=== PATIENT | female | born 1950 | race Caucasian/White ===

== ENCOUNTER → 2016-10-30 | Outpatient (REF) | payer MEDICARE ==
[~2016-10-30] MED LIST: ACET500T37 PO; CALC12502 PO; CALC1CAP31 PO; CIPR500T89 PO; DOCU10CA PO; DRIS50002 PO; FLAG500T PO; GABA300C3 PO; GLIP5TAB15 PO; GLIP5TAB2; IBUP800T23 PO; LEVO75TA4 PO; LOMO2.5T PO; LOVE0.6I2 SC; MAGN500C PO; METF500T PO; MILKSUS PO; MYLI40DR PO; NEUR100C PO; NEUR300C PO; No Historical Meds; PRAM0.5T4 PO; SYNT50TA PO; TRAM50TA2 PO; ZOFR4TAB3 PO
== END ==
LOC: M LAB REF 12:41
PROVIDERS: ATTEND Internal Medicine Medical Oncology
DX: C18.9 Malignant neoplasm of colon, unspecified (principal)

== ENCOUNTER → 2016-11-07 | Outpatient (CLI) | payer MEDICARE ==
[~2016-11-07] MED LIST changes: +GASTROGRAFIN SOLUTION 30ML (Q9963) As Ordered ONE; +ISOVUE-370 76% 100ML VIAL (Q9967) As Ordered ONE
--- NOTE | 2016-11-07 09:18 | REPMRS ---
Patient History The patient states she had a clinical breast exam in 2016. Patient is postmenopausal and has history of colorectal cancer at age 54. Family history of breast cancer in 3 paternal aunts at age 50 or over and breast cancer in paternal grandmother at age 50 or over. Digital Mammo Screening Bilat: November 07, 2016 - Exam #: [id number] Bilateral CC and MLO view(s) were taken. Technologist: Kayley Mijares, Technologist Prior study comparison: November 11, 2015, digital woman screen mammo, performed at [facility] [employer] [facility]. August 07, 2012, digital woman screen mammo, performed at [facility] [employer] [facility]. February 13, 2007, bilateral screening mammogram, performed at [facility] [employer] [facility]. FINDINGS: There are scattered fibroglandular densities. There has been no change in the appearance of the mammogram from the prior studies. There is a mild amount of scattered fibroglandular density which is fairly symmetric. There is no interval development of dominant mass, architectural distortion, or clustered microcalcification suggestive of malignancy. ASSESSMENT: BI-RADS/ACR category 1 mammogram. Negative. Recommendation Routine screening mammogram in 1 year (for women over age 40). This mammogram was interpreted with the aid of an FDA-approved computer-aided dectection system. Electronically Signed By: Cm Omalley MD 11/07/16 0918
--- NOTE | 2016-11-07 11:51 | REP ---
CT of the chest with IV contrast: Comparisons 07/23/2016. The comparison study was performed is a pulmonary embolus protocol. Current is performed as a routine chest protocol and is not a pulmonary embolus protocol. On the comparison study there were bilateral lower lobe pulmonary emboli. These are not identified on the current study, however, as stated, the current study is not a pulmonary artery CT angiography. There are no infiltrates or effusion. There are no lung masses or nodules. There is no mediastinal or hilar adenopathy. There is no axillary adenopathy. The thoracic aorta is unremarkable. Cardiac size is normal. There is no pericardial effusion. There are no lytic, blastic or destructive skeletal changes. Impression: Essentially negative CT study of the chest. There are no nodules, masses, infiltrates or effusions. No adenopathy. The pulmonary emboli identified on the comparison study are not identified on the current examination. Signed by Kt Razo MD 11/07/2016 11:42 A
--- NOTE | 2016-11-07 12:24 | REP ---
CT STUDY OF THE ABDOMEN AND PELVIS WITHOUT AND WITH IV CONTRAST: With oral contrast. HISTORY: Rectal bleeding. Colon cancer. Comparison CT study is from July 23, 2016. FINDINGS: Sheep Or Calf Grader radiograph demonstrates an unremarkable bowel gas pattern. The left lobe of the liver has been surgically resected as seen previously. There is a stable low density lesion in the remaining left lobe 1 cm in diameter compatible with a cyst. There is evidence of mild fatty infiltration of the liver. Liver is otherwise homogeneous. The spleen is homogeneous and unremarkable. A small sliding-type hiatal hernia is seen. No adrenal lesion is seen. There is fatty involution of the head of the pancreas, and to a lesser extent, the body and tail. No pancreatic mass lesion is seen. Small and large intestinal bowel loops are normal in the abdomen and pelvis. Normal appendix is seen. A rectosigmoid anastomotic suture line is seen. No colonic mass lesion is observed. There are a few left colonic diverticula. Kidneys enhance symmetrically and are morphologically intact. No renal mass is seen. Normal caliber aorta is seen. No uterine or ovarian mass lesion is seen. No pelvic adenopathy is noted. Postoperative changes are seen in the anterior abdominal wall. IMPRESSION: Stable changes in the abdomen and pelvis. Status post partial left lobe hepatectomy. Small hiatal hernia. Status post left colonic resection and reanastomosis. No new mass or adenopathy seen. Signed by Jak Omalley MD 11/07/2016 06:35 P
== END | disposition home or self-care (01) ==
LOC: M RAD 08:05
PROVIDERS: ATTEND Internal Medicine Medical Oncology
DX: Z12.31 Encounter for screening mammogram for malignant neoplasm of breast (principal); C18.9 Malignant neoplasm of colon, unspecified; K44.9 Diaphragmatic hernia without obstruction or gangrene; Z98.0 Intestinal bypass and anastomosis status; Z78.0 Asymptomatic menopausal state; Z80.3 Family history of malignant neoplasm of breast
CPT/HCPCS: 71260; 74178; G0202; Q9963; Q9967

== ENCOUNTER → 2016-11-20 | Outpatient (CLI) | payer MEDICARE ==
[~2016-11-20] MED LIST changes: -GASTROGRAFIN SOLUTION 30ML (Q9963) As Ordered ONE; -ISOVUE-370 76% 100ML VIAL (Q9967) As Ordered ONE
[2016-11-20 13:09] LABS: ALBUMIN 3.6 GM/DL (3.2-5.2); ALBUMIN/GLOBULIN RATIO 1.16 (1.00-1.93); ALKALINE PHOSPHATASE 66 U/L (45-117); ALT/SGPT 20 U/L (12-78); ANION GAP 11 MEQ/L (8-16); AST/SGOT 10 U/L (15-37); BILIRUBIN,TOTAL 0.7 MG/DL (0.2-1.0); BLOOD UREA NITROGEN 21 MG/DL (7-18); CALCIUM LEVEL 8.4 MG/DL (8.8-10.2); CARBON DIOXIDE LEVEL 23 MEQ/L (21-32); CHLORIDE LEVEL 108 MEQ/L (98-107); CREATININE FOR GFR 0.88 MG/DL (0.55-1.02); FREE T4 1.12 NG/DL (0.76-1.46); GLOMERULAR FILTRATION RATE > 60.0 (>45); GLUCOSE, FASTING 191 MG/DL (80-110); MAGNESIUM LEVEL 1.8 MG/DL (1.8-2.4); POTASSIUM SERUM 4.1 MEQ/L (3.5-5.1); SODIUM LEVEL 142 MEQ/L (136-145); TOTAL PROTEIN 6.7 GM/DL (6.4-8.2)
== END ==
LOC: M WUC 08:32
PROVIDERS: ATTEND Nurse Practitioner Family
DX: E11.9 Type 2 diabetes mellitus without complications (principal); E03.9 Hypothyroidism, unspecified; E83.42 Hypomagnesemia

== ENCOUNTER → 2016-12-12 | Outpatient (REF) | payer MEDICARE | LOC: M LAB REF 13:00 | PROVIDERS: ATTEND Physician Assistant Medical | DX: E11.8 Type 2 diabetes mellitus with unspecified complications (principal) | CPT/HCPCS: 82043; G0463 ==

== ENCOUNTER → 2017-02-07 | Outpatient (REF) | payer MEDICARE ==
[~2017-02-07] MED LIST changes: +GABA-282 PO; -GABA300C3 PO
== END ==
LOC: M LAB REF 13:29
PROVIDERS: ATTEND Internal Medicine Medical Oncology
DX: C18.9 Malignant neoplasm of colon, unspecified (principal)

== ENCOUNTER → 2017-02-14 | Outpatient (CLI) | payer MEDICARE ==
[~2017-02-14] MED LIST changes: +GASTROGRAFIN SOLUTION 30ML (Q9963) As Ordered ONE; +ISOVUE-370 76% 100ML VIAL (Q9967) As Ordered ONE
--- NOTE | 2017-02-14 10:20 | REP ---
CT ABDOMEN AND PELVIS WITH AND WITHOUT CONTRAST: TECHNIQUE: Axial noncontrast images through the abdomen followed by contrast-enhanced images through the abdomen and pelvis using 100 mL Isovue 370 intravenous contrast material, with coronal and sagittal reformations. COMPARISON: 11/07/2016 as well as other prior exams. The visualized lung bases demonstrate mild interstitial fibrotic change. The liver demonstrates increased diffuse fatty infiltration compared to the prior study. Left lobe cyst is unchanged. The patient is status post partial resection of the left lobe of the liver with metallic clips along the left liver margin. The spleen, adrenals, pancreas and kidneys are essentially unremarkable. There is a cyst in the upper pole of the right kidney. There is a tiny ayala-like calcification in the left lower pole collecting system without hydronephrosis. There are mild scattered atherosclerotic calcifications of the abdominal aorta without aneurysm. I see no adenopathy. There is no free air or free fluid. No bowel wall thickening is seen. The appendix is normal. No pelvic mass is seen. Surgical sutures are seen in the region of the rectosigmoid colon. There is a small hiatal hernia. A few sigmoid diverticula are present. Small sclerotic lesion in the left iliac bone is stable compared to several prior studies. IMPRESSION: Increased fatty infiltration of the liver compared to the most recent exam of 11/07/2016. Otherwise no change. Signed by Kt Ramirez MD 02/15/2017 05:10 P
== END ==
LOC: M RAD 07:15
PROVIDERS: ATTEND Internal Medicine Medical Oncology
DX: K76.0 Fatty (change of) liver, not elsewhere classified (principal); Z85.038 Personal history of other malignant neoplasm of large intestine
CPT/HCPCS: 74178; Q9963; Q9967

== ENCOUNTER → 2017-03-15 | Outpatient (CLI) | payer MEDICARE ==
[~2017-03-15] MED LIST changes: -GASTROGRAFIN SOLUTION 30ML (Q9963) As Ordered ONE; -ISOVUE-370 76% 100ML VIAL (Q9967) As Ordered ONE
[2017-03-15 09:14] LABS: BASO % 0.6 % (0.0-1.0); EOS # 0.1 K/mm3 (0.0-0.50); EOS % 3.2 % (0.0-3.0); LARGE UNSTAINED CELL # 0.1 K/mm3 (0.0-0.4); LARGE UNSTAINED CELL % 3.1 % (0.0-4.0); LYMPH # 0.5 K/mm3 (1.5-4.5); LYMPH % 15.5 % (24.0-44.0); MEAN CORPUSCULAR HEMOGLOBIN 30.3 pg (27.0-33.0); MEAN CORPUSCULAR VOLUME 89.3 fl (80.0-96.0); MONO # 0.2 K/mm3 (0.0-0.8); MONO % 6.2 % (0.0-5.0); NEUTROPHILS # 2.2 K/mm3 (1.8-7.7); NEUTROPHILS % 71.4 % (36.0-66.0); PLATELET COUNT, AUTOMATED 154 k/mm3 (150-450); RED CELL DISTRIBUTION WIDTH 14.6 % (11.5-14.5); WHITE BLOOD COUNT 3.1 K/mm3 (4.0-10.0)
[2017-03-15 09:39] LABS: ALBUMIN 3.5 GM/DL (3.2-5.2); ALBUMIN/GLOBULIN RATIO 1.21 (1.00-1.93); ALKALINE PHOSPHATASE 73 U/L (45-117); ALT/SGPT 26 U/L (12-78); ANION GAP 8 MEQ/L (8-16); AST/SGOT 13 U/L (15-37); BILIRUBIN,TOTAL 0.9 MG/DL (0.2-1.0); BLOOD UREA NITROGEN 19 MG/DL (7-18); CALCIUM LEVEL 8.3 MG/DL (8.8-10.2); CARBON DIOXIDE LEVEL 28 MEQ/L (21-32); CHLORIDE LEVEL 104 MEQ/L (98-107); CHOLESTEROL LEVEL 227 MG/DL (<200); CREATININE FOR GFR 0.95 MG/DL (0.55-1.02); FERRITIN 115 NG/ML (8-252); FREE T4 1.14 NG/DL (0.76-1.46); GLOMERULAR FILTRATION RATE > 60.0 (>45); GLUCOSE, FASTING 257 MG/DL (80-110); PERCENT SATURATION 28.7 % (13.2-37.4); POTASSIUM SERUM 4.7 MEQ/L (3.5-5.1); SODIUM LEVEL 140 MEQ/L (136-145); TOTAL IRON BINDING CAPACITY 272 UG/DL (250-450); TOTAL PROTEIN 6.4 GM/DL (6.4-8.2); TRIGLYCERIDES LEVEL 209 MG/DL (<150)
[2017-03-15 10:10] LABS: CARCINOEMBRYONIC ANTIGEN 0.9 NG/ML (<2.5)
== END ==
LOC: M WUC 08:11
PROVIDERS: ATTEND Physician Assistant Medical
DX: D64.9 Anemia, unspecified (principal); C77.2 Secondary and unspecified malignant neoplasm of intra-abdominal lymph nodes; E03.9 Hypothyroidism, unspecified; E11.8 Type 2 diabetes mellitus with unspecified complications; Z13.220 Encounter for screening for lipoid disorders; E66.01 Morbid (severe) obesity due to excess calories

== ENCOUNTER → 2017-04-30 | Outpatient (CLI) | payer MEDICARE ==
[~2017-04-30] VITALS: Ht 157.5 cm; Wt 81.6 kg
[~2017-04-30] MED LIST changes: +ACET-683 PO; -ACET500T37 PO; +ATOR1TAB21 PO; +CIPR-249 PO; -CIPR500T89 PO; +GLIP1TAB49 PO; -GLIP5TAB15 PO; +IBUP1TAB7 PO; -IBUP800T23 PO; +JANU100T PO; +LANTINJ4 SUBQ; +LR 1,000 ML IV SCH; -METF500T PO; +METF500T13 PO; +PROPOFOL 200 MG/20 ML VIAL As Ordered ONE; +[UNRECOGNIZED DRUG - OTHER] PO
--- NOTE | 2017-04-30 09:03 | ROOR ---
Patient Name: Elisabeth Yang Procedure Date: 04/30/2017 8:28 AM Date of : 1950 Age: 66 Room: [facility] Gender: Female Note Status: Finalized Procedure: Colonoscopy Indications: High risk colon cancer surveillance: Personal history of rectal cancer Providers: Mik Barber MD Referring MD: Bailee Prabhakar Requesting Provider: Medicines: Monitored Anesthesia Care Complications: No immediate complications. Procedure: Pre-Anesthesia Assessment: - Prior to the procedure, a History and Physical was performed, and patient medications and allergies were reviewed. The patient is competent. The risks and benefits of the procedure and the sedation options and risks were discussed with the patient. All questions were answered and informed consent was obtained. Patient identification and proposed procedure were verified by the physician, the nurse and the anesthesiologist in the procedure room. Mental Status Examination: alert and oriented. Airway Examination: normal oropharyngeal airway and neck mobility. CV Examination: regular rate and rhythm. Prophylactic Antibiotics: The patient does not require prophylactic antibiotics. Prior Anticoagulants: The patient has taken no previous anticoagulant or antiplatelet agents. ASA Grade Assessment: III - A patient with severe systemic disease. After reviewing the risks and benefits, the patient was deemed in satisfactory condition to undergo the procedure. The anesthesia plan was to use monitored anesthesia care (MAC). Immediately prior to administration of medications, the patient was re-assessed for adequacy to receive sedatives. The heart rate, respiratory rate, oxygen saturations, blood pressure, adequacy of pulmonary ventilation, and response to care were monitored throughout the procedure. The physical status of the patient was re-assessed after the procedure. The Colonoscope [id number] #[id number] was introduced through the anus and advanced to the cecum, identified by appendiceal orifice and ileocecal valve. The colonoscopy was performed without difficulty. The patient tolerated the procedure well. The quality of the bowel preparation was fair. Findings: The perianal exam findings include non-thrombosed external hemorrhoids. There was evidence of a prior end-to-end colo-rectal anastomosis at 11 cm proximal to the anus. This was patent and was characterized by healthy appearing mucosa and an intact staple line. A few small-mouthed diverticula were found in the sigmoid colon. Impression: - Preparation of the colon was fair. - Non-thrombosed external hemorrhoids found on perianal exam. - Patent end-to-end colo-rectal anastomosis, characterized by healthy appearing mucosa and an intact staple line. - Diverticulosis in the sigmoid colon. - No specimens collected. Recommendation: - Discharge patient to home. - Resume regular diet. - Continue present medications. Mik Barber MD 04/30/2017 9:03:16 AM Number of Addenda: 0 Note Initiated On: 04/30/2017 8:28 AM Estimated Blood Loss: Estimated blood loss: none.
[2017-04-30 09:25] VITALS: BP 143/81
== END | disposition home or self-care (01) ==
LOC: M OPP 07:19
PROVIDERS: ATTEND Surgery
DX: Z12.11 Encounter for screening for malignant neoplasm of colon (principal); K64.8 Other hemorrhoids; Z98.0 Intestinal bypass and anastomosis status; K57.30 Diverticulosis of large intestine without perforation or abscess without bleeding; Z85.048 Personal history of other malignant neoplasm of rectum, rectosigmoid junction, and anus; E78.5 Hyperlipidemia, unspecified; E11.9 Type 2 diabetes mellitus without complications; E03.9 Hypothyroidism, unspecified; E66.9 Obesity, unspecified; Z85.05 Personal history of malignant neoplasm of liver; Z86.14 Personal history of Methicillin resistant Staphylococcus aureus infection; M54.9 Dorsalgia, unspecified; Z78.0 Asymptomatic menopausal state; Z92.21 Personal history of antineoplastic chemotherapy; Z92.3 Personal history of irradiation; Z86.711 Personal history of pulmonary embolism; Z80.3 Family history of malignant neoplasm of breast; Z80.0 Family history of malignant neoplasm of digestive organs; Z87.891 Personal history of nicotine dependence; Z88.8 Allergy status to other drugs, medicaments and biological substances; Z79.84 Long term (current) use of oral hypoglycemic drugs; Z79.899 Other long term (current) drug therapy

== ENCOUNTER → 2017-05-07 | Outpatient (REF) | payer MEDICARE ==
[~2017-05-07] MED LIST changes: -LR 1,000 ML IV SCH; -PROPOFOL 200 MG/20 ML VIAL As Ordered ONE
== END ==
LOC: M LAB REF 13:45
PROVIDERS: ATTEND Physician Assistant Medical
DX: E11.8 Type 2 diabetes mellitus with unspecified complications (principal); Z13.220 Encounter for screening for lipoid disorders; Z85.038 Personal history of other malignant neoplasm of large intestine

== ENCOUNTER → 2017-05-07 | Outpatient (REF) | payer MEDICARE | LOC: M LAB REF 13:46 | PROVIDERS: ATTEND Internal Medicine Medical Oncology | DX: C18.9 Malignant neoplasm of colon, unspecified (principal) ==

== ENCOUNTER → 2017-05-30 | Outpatient (CLI) | payer MEDICARE ==
[2017-05-30 14:22] LABS: ALBUMIN 3.9 GM/DL (3.2-5.2); ALBUMIN/GLOBULIN RATIO 1.34 (1.00-1.93); BILIRUBIN,DIRECT 0.3 MG/DL (0.0-0.2); BILIRUBIN,TOTAL 1.2 MG/DL (0.2-1.0); TOTAL PROTEIN 6.8 GM/DL (6.4-8.2)
== END ==
LOC: M WUC 09:22
PROVIDERS: ATTEND Physician Assistant Medical
DX: Z13.220 Encounter for screening for lipoid disorders (principal); E11.8 Type 2 diabetes mellitus with unspecified complications; E66.01 Morbid (severe) obesity due to excess calories

== ENCOUNTER → 2017-06-13 | Outpatient (CLI) | payer MEDICARE ==
--- NOTE | 2017-06-13 12:21 | REP ---
CHEST X-RAY: Two views. HISTORY: Removal of left port. COMPARISON STUDY: October 01, 2014. FINDINGS: An Omrtwr-X-Lpcz catheter is seen in place via the left subclavian vein with its tip in the expected location of the superior vena cava. The lungs are symmetrically aerated and clear. Pleural angles are sharp. Heart size is not felt to be enlarged. The frontal view is exposed at a lesser level of inspiration than on the prior study. Pulmonary vasculature is not increased. There are degenerative changes in the thoracic spine. IMPRESSION: Wsvfka-F-Vhjz in place. Otherwise no active disease. Signed by Jak Omalley MD 06/13/2017 02:38 P
[2017-06-13 13:43] LABS: INR 1.05
[2017-06-13 13:44] LABS: MEAN CORPUSCULAR HEMOGLOBIN 30.3 pg (27.0-33.0); MEAN CORPUSCULAR HGB CONC 34.7 g/dl (32.0-36.5); MEAN CORPUSCULAR VOLUME 87.2 fl (80.0-96.0); RED CELL DISTRIBUTION WIDTH 14.3 % (11.5-14.5); WHITE BLOOD COUNT 4.3 K/mm3 (4.0-10.0)
[2017-06-13 13:53] LABS: CREATININE FOR GFR 1.18 MG/DL (0.55-1.02); GLOMERULAR FILTRATION RATE 48.6 (>45); POTASSIUM SERUM 4.4 MEQ/L (3.5-5.1)
== END ==
LOC: M SMT 10:56
PROVIDERS: ATTEND Thoracic Surgery (Cardiothoracic Vascular Surgery)
DX: Z01.818 Encounter for other preprocedural examination (principal); Z45.2 Encounter for adjustment and management of vascular access device

== ENCOUNTER 2017-06-19 08:44 | Day surgery (SDC) | payer MEDICARE ==
[~2017-06-19] VITALS: Ht 157.5 cm; Wt 86.2 kg
[~2017-06-19 08:44] MED LIST changes: +BUPIVACAINE LIPOSOME/PF 1.3% 20 ML VIAL (13.3MG/ML)(EXPAREL) As Ordered ONE
[2017-06-19] MEDS ORDERED: LR 1,000 ML IV ONE (09:00)
[2017-06-19] MEDS ORDERED: MUPIROCIN 2% OINT 22 GM TUBE TOP ONE (09:00)
[2017-06-19] MEDS ORDERED: MIDAZOLAM INJ 2 MG/2 ML VIAL (J2250) As Ordered ONE (09:21)
[2017-06-19] MEDS ORDERED: PROPOFOL 200 MG/20 ML VIAL As Ordered ONE (09:21)
[2017-06-19] MEDS ORDERED: LIDOCAINE 2% INJ 100 MG/5 ML SDV (FOR ANES.) As Ordered ONE (09:21)
[2017-06-19] MEDS ORDERED: fentaNYL 100 MCG/2 ML INJECTION (J3010) As Ordered ONE (09:21)
--- NOTE | 2017-06-19 10:44 | REP ---
Clinical: Ttfjry-A-Oyof removal . Comparison: 06/13/2017 . Technique: Portable AP. Findings: The mediastinum and cardiac silhouette are normal. Previously identified Pxmlzn-W-Zyzd has been removed. The lung keith are clear and without acute consolidation, effusion, or pneumothorax. The skeletal structures are intact and normal. Impression: 1. No acute cardiopulmonary process. Signed by Aram Brown MD 06/19/2017 10:36 A
[2017-06-19 10:55] VITALS: BP 157/88
--- NOTE | 2017-06-19 18:21 | ECGEPIP ---
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
--- NOTE | 2017-06-20 20:51 | RO ---
DATE OF PROCEDURE: 06/19/2017 PREPROCEDURE DIAGNOSES: Retained Infusaport, completion of chemotherapy. POSTPROCEDURE DIAGNOSES: Retained Infusaport, completion of chemotherapy. PROCEDURE: Removal of left subclavian Infusaport. SURGEON: Mik Guido MD [employer] DEPARTMENT HEAD: ANESTHESIA: Monitored anesthesia care (MAC). DESCRIPTION OF PROCEDURE: Under satisfactory MAC anesthesia, patient was prepped and draped in the usual sterile fashion. Incision was made over the prior incision, and dissection was carried down to the Infusaport body. The stem was located and dissected free, and the catheter was removed in toto. Infusaport was secured to the chest wall with two silk sutures, which were removed. The glistening capsule was then removed by electrocautery. After achieving adequate hemostasis, the wound was closed with running #3-0 Vicryl subcutaneous suture, and the skin was closed with running #4-0 Monocryl subcuticular suture. The patient tolerated procedure well and left the operating room in satisfactory condition to the recovery room.
== END 2017-06-19 11:20 | disposition home or self-care (01) ==
LOC: M SDC 08:44
PROVIDERS: ATTEND Thoracic Surgery (Cardiothoracic Vascular Surgery)
DX: Z45.2 Encounter for adjustment and management of vascular access device (principal); Z85.038 Personal history of other malignant neoplasm of large intestine; E11.9 Type 2 diabetes mellitus without complications; Z85.05 Personal history of malignant neoplasm of liver; E03.9 Hypothyroidism, unspecified; E78.00 Pure hypercholesterolemia, unspecified; Z79.899 Other long term (current) drug therapy; Z79.4 Long term (current) use of insulin; Z88.8 Allergy status to other drugs, medicaments and biological substances; Z86.711 Personal history of pulmonary embolism; Z92.3 Personal history of irradiation; Z87.891 Personal history of nicotine dependence
CPT/HCPCS: 36590; 71010; 88300; 93005; J0690; J2250; J3010

== ENCOUNTER → 2017-06-27 | Outpatient (CLI) | payer MEDICARE ==
[~2017-06-27] MED LIST changes: -BUPIVACAINE LIPOSOME/PF 1.3% 20 ML VIAL (13.3MG/ML)(EXPAREL) As Ordered ONE
--- NOTE | 2017-06-27 08:20 | REP ---
Clinical: History of colon cancer . Comparison: 06/19/2017 . Technique: PA and lateral. Findings: The mediastinum and cardiac silhouette are normal. The lung keith are clear and without acute consolidation, effusion, or pneumothorax. The skeletal structures are intact and normal. Impression: 1. No acute cardiopulmonary process. Signed by Aram Brown MD 06/27/2017 08:11 A
== END ==
LOC: M SMT 08:00
PROVIDERS: ATTEND Thoracic Surgery (Cardiothoracic Vascular Surgery)
DX: Z85.038 Personal history of other malignant neoplasm of large intestine (principal)

== ENCOUNTER → 2017-08-27 | Outpatient (CLI) | payer MEDICARE ==
[2017-08-27 13:44] LABS: ALBUMIN 3.8 GM/DL (3.2-5.2); ALBUMIN/GLOBULIN RATIO 1.36 (1.00-1.93); BILIRUBIN,DIRECT 0.2 MG/DL (0.0-0.2); TOTAL PROTEIN 6.6 GM/DL (6.4-8.2)
== END ==
LOC: M WUC 08:47
PROVIDERS: ATTEND Physician Assistant Medical
DX: E11.8 Type 2 diabetes mellitus with unspecified complications (principal)

== ENCOUNTER → 2017-10-21 | Outpatient (REF) | payer MEDICARE ==
[2017-10-22 07:14] LABS: CARCINOEMBRYONIC ANTIGEN 1.7 NG/ML (<2.5)
== END ==
LOC: M LAB REF 13:41
DX: C18.9 Malignant neoplasm of colon, unspecified (principal)
CPT/HCPCS: 82378

== ENCOUNTER → 2017-10-29 | Outpatient (CLI) | payer MEDICARE ==
[~2017-10-29] MED LIST changes: -ACET-683 PO; -ATOR1TAB21 PO; -CALC12502 PO; -CALC1CAP31 PO; -CIPR-249 PO; -DOCU10CA PO; -DRIS50002 PO; -FLAG500T PO; -GABA-282 PO; +GASTROGRAFIN SOLUTION 30ML (Q9963) As Ordered; -GLIP1TAB49 PO; -GLIP5TAB2; -IBUP1TAB7 PO; +ISOVUE-370 76% 100ML VIAL (Q9967) As Ordered; -JANU100T PO; -LANTINJ4 SUBQ; -LEVO75TA4 PO; -LOMO2.5T PO; -LOVE0.6I2 SC; -MAGN500C PO; -METF500T13 PO; -MILKSUS PO; -MYLI40DR PO; -NEUR100C PO; -NEUR300C PO; -No Historical Meds; -PRAM0.5T4 PO; -SYNT50TA PO; -TRAM50TA2 PO; -ZOFR4TAB3 PO; -[UNRECOGNIZED DRUG - OTHER] PO
== END ==
LOC: M RAD 08:17
DX: C18.9 Malignant neoplasm of colon, unspecified (principal); N20.0 Calculus of kidney; K76.89 Other specified diseases of liver
CPT/HCPCS: Q9963

== ENCOUNTER → 2017-11-14 | Outpatient (REF) | payer MEDICARE ==
[2017-11-14 12:13] LABS: HEMATOCRIT 31.1 % (36.0-47.0); HEMOGLOBIN 10.4 g/dl (12.0-16.0); MEAN CORPUSCULAR HEMOGLOBIN 29.3 pg (27.0-33.0); MEAN CORPUSCULAR HGB CONC 33.4 g/dl (32.0-36.5); MEAN CORPUSCULAR VOLUME 87.6 fl (80.0-96.0); PLATELET COUNT, AUTOMATED 142 10^3/uL (150-450); RED BLOOD COUNT 3.55 10^6/uL (4.00-5.40); RED CELL DISTRIBUTION WIDTH 14.6 % (11.5-14.5); WHITE BLOOD COUNT 4.2 10^3/uL (4.0-10.0)
[2017-11-14 12:14] LABS: BASO % 0.5 % (0.0-1.0); EOS # 0.2 10^3/uL (0.0-0.50); EOS % 3.8 % (0.0-3.0); HEMATOCRIT 31.1 % (36.0-47.0); HEMOGLOBIN 10.3 g/dl (12.0-16.0); IMMATURE GRANULOCYTE % 0.5 % (0-0); LYMPH # 0.5 10^3/uL (1.5-4.5); LYMPH % 11.5 % (24.0-44.0); MEAN CORPUSCULAR HEMOGLOBIN 29.2 pg (27.0-33.0); MEAN CORPUSCULAR HGB CONC 33.1 g/dl (32.0-36.5); MEAN CORPUSCULAR VOLUME 88.1 fl (80.0-96.0); MONO # 0.4 10^3/uL (0.0-0.8); MONO % 8.6 % (0.0-5.0); NEUTROPHILS # 3.1 10^3/uL (1.8-7.7); NEUTROPHILS % 75.1 % (36.0-66.0); PLATELET COUNT, AUTOMATED 156 10^3/uL (150-450); RED BLOOD COUNT 3.53 10^6/uL (4.00-5.40); RED CELL DISTRIBUTION WIDTH 14.6 % (11.5-14.5); WHITE BLOOD COUNT 4.2 10^3/uL (4.0-10.0)
[2017-11-14 12:15] LABS: INR 1.07; PROTHROMBIN TIME 14.1 SECONDS (12.4-14.5)
[2017-11-14 12:16] LABS: PARTIAL THROMBOPLASTIN TIME 30.3 SECONDS (26.8-37.9)
[2017-11-14 12:20] LABS: APPEARANCE, URINE CLOUDY (CLEAR); BACTERIA, URINE AUTO NEGATIVE (NEGATIVE); BILIRUBIN, URINE AUTO NEGATIVE (NEGATIVE); BLOOD, URINE BLOOD NEGATIVE (NEGATIVE); COLOR, URINE YELLOW (YELLOW); GLUCOSE, URINE (UA) AUTO 1+ mg/dL (NEGATIVE); KETONE, URINE AUTO NEGATIVE (NEGATIVE); LEUKOCYTE ESTERASE, URINE AUTO 3+ (NEGATIVE); MUCUS, URINE SMALL (NEGATIVE); NITRITE, URINE AUTO NEGATIVE (NEGATIVE); PROTEIN, URINE AUTO 1+ mg/dL (NEGATIVE); RBC, URINE AUTO 2 /HPF (0-3); SPECIFIC GRAVITY URINE AUTO 1.018 (1.002-1.035); SQUAMOUS EPITHELIAL CELL UR AU 3 /HPF (0-6); UROBILINOGEN, URINE AUTO 0.2 mg/dL (0.0-2.0); WBC, URINE AUTO 7 /HPF (0-3)
[2017-11-14 12:35] LABS: ANION GAP 7 MEQ/L (8-16); BLOOD UREA NITROGEN 28 MG/DL (7-18); CALCIUM LEVEL 8.7 MG/DL (8.8-10.2); CARBON DIOXIDE LEVEL 27 MEQ/L (21-32); CHLORIDE LEVEL 104 MEQ/L (98-107); CREATININE FOR GFR 1.42 MG/DL (0.55-1.30); GLOMERULAR FILTRATION RATE 39.2 (>45); GLUCOSE, FASTING 210 MG/DL (70-100); POTASSIUM SERUM 4.7 MEQ/L (3.5-5.1); SODIUM LEVEL 138 MEQ/L (136-145)
[2017-11-14 12:46] LABS: ALBUMIN 3.9 GM/DL (3.2-5.2); ALBUMIN/GLOBULIN RATIO 1.15 (1.00-1.93); ALKALINE PHOSPHATASE 99 U/L (45-117); ALT/SGPT 20 U/L (12-78); ANION GAP 8 MEQ/L (8-16); AST/SGOT 13 U/L (7-37); BILIRUBIN,TOTAL 0.9 MG/DL (0.2-1.0); BLOOD UREA NITROGEN 27 MG/DL (7-18); CARBON DIOXIDE LEVEL 29 MEQ/L (21-32); CHLORIDE LEVEL 103 MEQ/L (98-107); CREATININE FOR GFR 1.42 MG/DL (0.55-1.30); FREE T4 1.05 NG/DL (0.76-1.46); GLOMERULAR FILTRATION RATE 39.2 (>45); GLUCOSE, FASTING 202 MG/DL (70-100); POTASSIUM SERUM 4.7 MEQ/L (3.5-5.1); SODIUM LEVEL 140 MEQ/L (136-145); TOTAL PROTEIN 7.3 GM/DL (6.4-8.2)
[2017-11-14 13:00] LABS: ESTIMATED AVERAGE GLUCOSE 206 MG/DL (60-110); HEMOGLOBIN A1c 8.8 %
== END ==
LOC: M SFHCCLAY 08:54
DX: Z01.818 Encounter for other preprocedural examination (principal); N13.1 Hydronephrosis with ureteral stricture, not elsewhere classified; E11.8 Type 2 diabetes mellitus with unspecified complications; E03.9 Hypothyroidism, unspecified; E78.2 Mixed hyperlipidemia
CPT/HCPCS: 84443

== ENCOUNTER → 2017-11-25 | Day surgery (SDC) | payer MEDICARE ==
[~2017-11-25] MED LIST changes: -GASTROGRAFIN SOLUTION 30ML (Q9963) As Ordered; -ISOVUE-370 76% 100ML VIAL (Q9967) As Ordered; +LIDOCAINE 2% INJ 100 MG/5 ML SYRINGE As Ordered; +LR 1,000 ML IV; +MIDAZOLAM INJ 2 MG/2 ML VIAL (J2250) As Ordered; +NORCO, ANEXSIA 5/325MG TABLET (HYDROcodone/ACETAMINOPHEN) PO; +ONDANSETRON 4MG/2ML VIAL (J2405) As Ordered; +ONDANSETRON 4MG/2ML VIAL (J2405) IV; +PERCOCET 5MG/325MG TAB PO; +PROPOFOL 200 MG/20 ML VIAL As Ordered; +ePHEDrine INJ 50 MG/ML VIAL As Ordered; +fentaNYL 100 MCG/2 ML INJECTION (J3010) As Ordered; +fentaNYL 100 MCG/2 ML INJECTION (J3010) IV; +oxyBUTYnin 5 MG TAB PO
[2017-11-25 09:33] LABS: BEDSIDE GLUCOSE 274 MG/DL (80-115)
[2017-11-25] MEDS: CONRAY-60 60% 50ML VIAL (Q9961) As Ordered (10:42)
[2017-11-25 11:34] LABS: BEDSIDE GLUCOSE 290 MG/DL (80-115)
== END | disposition home or self-care (01) ==
LOC: M SDC 08:14
DX: N13.1 Hydronephrosis with ureteral stricture, not elsewhere classified (principal); E78.2 Mixed hyperlipidemia; E03.9 Hypothyroidism, unspecified; E10.8 Type 1 diabetes mellitus with unspecified complications; M12.9 Arthropathy, unspecified; M65.321 Trigger finger, right index finger; Z88.6 Allergy status to analgesic agent; Z88.8 Allergy status to other drugs, medicaments and biological substances; Z79.899 Other long term (current) drug therapy; Z79.84 Long term (current) use of oral hypoglycemic drugs; Z85.038 Personal history of other malignant neoplasm of large intestine; Z92.3 Personal history of irradiation; Z92.21 Personal history of antineoplastic chemotherapy; Z86.711 Personal history of pulmonary embolism; Z87.440 Personal history of urinary (tract) infections; Z85.05 Personal history of malignant neoplasm of liver; Z87.891 Personal history of nicotine dependence; Z86.14 Personal history of Methicillin resistant Staphylococcus aureus infection
CPT/HCPCS: 52332

== ENCOUNTER → 2017-12-07 | Outpatient (CLI) | payer MEDICARE | LOC: M WUC 10:49 | DX: R30.0 Dysuria (principal) | CPT/HCPCS: 36415 ==

== ENCOUNTER → 2018-01-14 | Outpatient (REF) | payer MEDICARE ==
[2018-01-14 19:40] LABS: CARCINOEMBRYONIC ANTIGEN 2.4 NG/ML (<2.5)
== END ==
LOC: M LAB REF 17:38
DX: C18.9 Malignant neoplasm of colon, unspecified (principal)
CPT/HCPCS: 82378

== ENCOUNTER → 2018-02-05 | Outpatient (CLI) | payer MEDICARE | LOC: M SMT 08:22 | DX: N13.30 Unspecified hydronephrosis (principal) | CPT/HCPCS: 76770 ==

== ENCOUNTER → 2018-02-28 | Outpatient (CLI) | payer MEDICARE | LOC: M CLY 07:29 | DX: Z01.818 Encounter for other preprocedural examination (principal); N13.5 Crossing vessel and stricture of ureter without hydronephrosis; N39.0 Urinary tract infection, site not specified; Z79.899 Other long term (current) drug therapy | CPT/HCPCS: 80048 ==

== ENCOUNTER → 2018-02-28 | Outpatient (REF) | payer MEDICARE ==
[2018-02-28 11:54] LABS: HEMATOCRIT 31.1 % (36.0-47.0); HEMOGLOBIN 10.3 g/dl (12.0-15.5); MEAN CORPUSCULAR HEMOGLOBIN 29.1 pg (27.0-33.0); MEAN CORPUSCULAR HGB CONC 33.1 g/dl (32.0-36.5); MEAN CORPUSCULAR VOLUME 87.9 fl (80.0-96.0); PLATELET COUNT, AUTOMATED 177 10^3/uL (150-450); RED BLOOD COUNT 3.54 10^6/uL (4.00-5.40); RED CELL DISTRIBUTION WIDTH 14.6 % (11.5-14.5); WHITE BLOOD COUNT 4.3 10^3/uL (4.0-10.0)
[2018-02-28 12:02] LABS: INR 1.05; PROTHROMBIN TIME 13.8 SECONDS (12.4-14.5)
[2018-02-28 12:03] LABS: PARTIAL THROMBOPLASTIN TIME 34.3 SECONDS (26.8-37.9)
[2018-02-28 12:46] LABS: ANION GAP 4 MEQ/L (8-16); BLOOD UREA NITROGEN 30 MG/DL (7-18); CALCIUM LEVEL 8.8 MG/DL (8.8-10.2); CARBON DIOXIDE LEVEL 29 MEQ/L (21-32); CHLORIDE LEVEL 108 MEQ/L (98-107); CREATININE FOR GFR 1.46 MG/DL (0.55-1.30); GLOMERULAR FILTRATION RATE 37.9 (>45); GLUCOSE, FASTING 151 MG/DL (70-100); POTASSIUM SERUM 4.7 MEQ/L (3.5-5.1); SODIUM LEVEL 141 MEQ/L (136-145)
== END ==
LOC: M LABSMT 07:16 → M LABDRAWC 08:44
DX: Z01.818 Encounter for other preprocedural examination (principal); N13.5 Crossing vessel and stricture of ureter without hydronephrosis; N39.0 Urinary tract infection, site not specified

== ENCOUNTER 2018-03-05 05:44 | Inpatient (IN) | payer MEDICARE ==
[2018-03-05 06:40] LABS: BEDSIDE GLUCOSE 164 MG/DL (80-115)
[2018-03-05] MEDS: METHYLENE BLUE 0.5% (5MG/ML) 10 ML AMP (PROVAYBLUE)(Q9968 PER 1MG) As Ordered (07:08)
[2018-03-05] MEDS ORDERED: fentaNYL 250 MCG/5 ML INJECTION (J3010) As Ordered (07:23)
[2018-03-05] MEDS ORDERED: LIDOCAINE 2% INJ 100 MG/5 ML SDV (FOR ANES.) As Ordered (07:23)
[2018-03-05] MEDS ORDERED: MIDAZOLAM INJ 2 MG/2 ML VIAL (J2250) As Ordered (07:23)
[2018-03-05] MEDS ORDERED: PROPOFOL 200 MG/20 ML VIAL As Ordered (07:23)
[2018-03-05] MEDS ORDERED: ROCURONIUM BROMIDE 50 MG/5 ML VIAL As Ordered ×3 (07:23→11:07)
[2018-03-05] MEDS ORDERED: HEPARIN SOD (PORCINE) 5000 UNITS/ML VIAL As Ordered (07:29)
[2018-03-05] MEDS ORDERED: ePHEDrine SULFATE 25 MG/5 ML(5MG/ML) SYRINGE As Ordered (07:37)
[2018-03-05] MEDS: HEPARIN SOD (PORCINE) 5000 UNITS/ML VIAL SQ (07:39)
[2018-03-05] MEDS ORDERED: GLYCOPYRROLATE INJ 0.2 MG/ML 2 ML VIAL As Ordered ×2 (08:10→11:48)
[2018-03-05] MEDS ORDERED: ONDANSETRON 4MG/2ML VIAL (J2405) As Ordered (10:45)
[2018-03-05] MEDS ORDERED: METOCLOPRAMIDE INJ 10MG/2ML VIAL (J2765) As Ordered (11:05)
[2018-03-05] MEDS ORDERED: NEOSTIGMINE 10 MG/10 ML VIAL (J2710) As Ordered (11:48)
[2018-03-05] MEDS: BUPIVACAINE HCL 0.25% 30 ML VIAL As Ordered (14:02)
[2018-03-05] MEDS: LIDOCAINE 1% SDV INJ 30 ML VIAL As Ordered (14:02)
[2018-03-05] MEDS: NS 1,000 ML IV (14:07)
[2018-03-05] MEDS ORDERED: GLUCOSE 4 GM CHEW TABLET PO (14:15)
[2018-03-05] MEDS ORDERED: ONDANSETRON 4MG/2ML VIAL (J2405) IV ×2 (14:15→15:00)
[2018-03-05] MEDS ORDERED: DEXTROSE 50% 50 ML SYRINGE IV (14:15)
[2018-03-05] MEDS ORDERED: PERCOCET 5MG/325MG TAB PO (14:15)
[2018-03-05] MEDS ORDERED: MORPHINE 4 MG/ML 1ML VIAL/SYRINGE (J2270) IV (14:15)
[2018-03-05] MEDS ORDERED: GLUCAGON FOR INJ 1 MG VIAL (J1610) SC (14:15)
[2018-03-05 14:58] LABS: BEDSIDE GLUCOSE 261 MG/DL (80-115)
[2018-03-05] MEDS ORDERED: MORPHINE 10 MG/ML 1ML VIAL (J2270) IV (15:00)
[2018-03-05] MEDS: LR 1,000 ML IV (15:00)
[2018-03-05] MEDS ORDERED: fentaNYL 100 MCG/2 ML INJECTION (J3010) IV (15:00)
[2018-03-05 15:11] LABS: HEMOGLOBIN 10.8 g/dl (12.0-15.5); MEAN CORPUSCULAR HEMOGLOBIN 29.6 pg (27.0-33.0); MEAN CORPUSCULAR HGB CONC 33.8 g/dl (32.0-36.5); MEAN CORPUSCULAR VOLUME 87.7 fl (80.0-96.0); PLATELET COUNT, AUTOMATED 155 10^3/uL (150-450); RED BLOOD COUNT 3.65 10^6/uL (4.00-5.40); RED CELL DISTRIBUTION WIDTH 14.5 % (11.5-14.5); WHITE BLOOD COUNT 8.1 10^3/uL (4.0-10.0)
[2018-03-05 15:40] LABS: ANION GAP 7 MEQ/L (8-16); BLOOD UREA NITROGEN 28 MG/DL (7-18); CALCIUM LEVEL 8.3 MG/DL (8.8-10.2); CARBON DIOXIDE LEVEL 25 MEQ/L (21-32); CHLORIDE LEVEL 106 MEQ/L (98-107); CREATININE FOR GFR 1.61 MG/DL (0.55-1.30); GLOMERULAR FILTRATION RATE 33.9 (>45); GLUCOSE, FASTING 260 MG/DL (70-100); POTASSIUM SERUM 4.8 MEQ/L (3.5-5.1); SODIUM LEVEL 138 MEQ/L (136-145)
[2018-03-05] MEDS: HumaLOG INSULIN (NovoLOG) PER UNIT SC ×2 (15:48→21:00)
[2018-03-05] MEDS: ceFAZolin SOD 1 GM in D5W MINI-BAG PLUS 50 ML IV (17:02)
[2018-03-05] MEDS: ATORVASTATIN 20 MG TAB PO (17:02)
[2018-03-05] MEDS: DOCUSATE SODIUM 100 MG CAP PO (21:00)
[2018-03-05] MEDS: GABAPENTIN 300 MG CAP PO (22:56)
[2018-03-05] MEDS: HEPARIN SOD (PORCINE) 5000 UNITS/ML VIAL SC (22:56)
[2018-03-06] MEDS: ceFAZolin SOD 1 GM in D5W MINI-BAG PLUS 50 ML IV (00:22)
[2018-03-06 05:53] LABS: HEMATOCRIT 27.8 % (36.0-47.0); HEMOGLOBIN 9.2 g/dl (12.0-15.5); MEAN CORPUSCULAR HGB CONC 33.1 g/dl (32.0-36.5); MEAN CORPUSCULAR VOLUME 87.7 fl (80.0-96.0); PLATELET COUNT, AUTOMATED 146 10^3/uL (150-450); RED BLOOD COUNT 3.17 10^6/uL (4.00-5.40); RED CELL DISTRIBUTION WIDTH 14.7 % (11.5-14.5); WHITE BLOOD COUNT 6.3 10^3/uL (4.0-10.0)
[2018-03-06] MEDS: LEVOTHYROXINE 75MCG TABLET (0.075MG) PO (06:17)
[2018-03-06] MEDS: HEPARIN SOD (PORCINE) 5000 UNITS/ML VIAL SC ×2 (06:18→14:42)
[2018-03-06 06:33] LABS: BEDSIDE GLUCOSE 223 MG/DL (80-115)
[2018-03-06 06:33] LABS: ANION GAP 7 MEQ/L (8-16); BLOOD UREA NITROGEN 24 MG/DL (7-18); CALCIUM LEVEL 7.6 MG/DL (8.8-10.2); CARBON DIOXIDE LEVEL 26 MEQ/L (21-32); CHLORIDE LEVEL 106 MEQ/L (98-107); CREATININE FOR GFR 1.57 MG/DL (0.55-1.30); GLOMERULAR FILTRATION RATE 34.9 (>45); GLUCOSE, FASTING 226 MG/DL (70-100); SODIUM LEVEL 139 MEQ/L (136-145)
[2018-03-06] MEDS: HumaLOG INSULIN (NovoLOG) PER UNIT SC ×2 (07:48→11:58)
[2018-03-06] MEDS: ATORVASTATIN 20 MG TAB PO (09:35)
[2018-03-06] MEDS: DOCUSATE SODIUM 100 MG CAP PO (09:35)
[2018-03-06 11:44] LABS: BEDSIDE GLUCOSE 257 MG/DL (80-115)
[2018-03-06] MEDS: PERCOCET 5MG/325MG TAB PO (14:42)
[2018-03-06] MEDS ORDERED: oxyBUTYnin 5 MG TAB PO (15:15)
== END 2018-03-06 16:25 | disposition home or self-care (01) | DRG 661 ==
LOC: M OR 05:44 → M MS5PR 16:00
PROVIDERS: Urology
PROC: 0T174ZB Bypass Left Ureter to Bladder, Percutaneous Endoscopic Approach (ICD-10-PCS; principal; 2018-03-05 07:29)
PROC: 0DNU4ZZ Release Omentum, Percutaneous Endoscopic Approach (ICD-10-PCS; 2018-03-05 07:29)
PROC: 8E0W4CZ Robotic Assisted Procedure of Trunk Region, Percutaneous Endoscopic Approach (ICD-10-PCS; 2018-03-05 07:29)
PROC: 0T774DZ Dilation of Left Ureter with Intraluminal Device, Percutaneous Endoscopic Approach (ICD-10-PCS; 2018-03-05 07:29)
DX: N13.5 Crossing vessel and stricture of ureter without hydronephrosis (principal); N99.4 Postprocedural pelvic peritoneal adhesions; E11.9 Type 2 diabetes mellitus without complications; E03.9 Hypothyroidism, unspecified; E78.5 Hyperlipidemia, unspecified; Z87.891 Personal history of nicotine dependence; Z86.711 Personal history of pulmonary embolism; Z85.038 Personal history of other malignant neoplasm of large intestine; Z79.84 Long term (current) use of oral hypoglycemic drugs; Z79.899 Other long term (current) drug therapy; Z86.14 Personal history of Methicillin resistant Staphylococcus aureus infection; Z90.49 Acquired absence of other specified parts of digestive tract

== ENCOUNTER → 2018-03-11 | Outpatient (CLI) | payer MEDICARE ==
[~2018-03-11] MED LIST changes: +CYSTO-CONRAY II 17.2% 250ML VIAL (Q9958) As Ordered; -LIDOCAINE 2% INJ 100 MG/5 ML SYRINGE As Ordered; -LR 1,000 ML IV; -MIDAZOLAM INJ 2 MG/2 ML VIAL (J2250) As Ordered; -NORCO, ANEXSIA 5/325MG TABLET (HYDROcodone/ACETAMINOPHEN) PO; -ONDANSETRON 4MG/2ML VIAL (J2405) As Ordered; -ONDANSETRON 4MG/2ML VIAL (J2405) IV; -PERCOCET 5MG/325MG TAB PO; -PROPOFOL 200 MG/20 ML VIAL As Ordered; -ePHEDrine INJ 50 MG/ML VIAL As Ordered; -fentaNYL 100 MCG/2 ML INJECTION (J3010) As Ordered; -fentaNYL 100 MCG/2 ML INJECTION (J3010) IV; -oxyBUTYnin 5 MG TAB PO
== END ==
LOC: M RADPRO 13:44
DX: N32.89 Other specified disorders of bladder (principal); Z98.890 Other specified postprocedural states
CPT/HCPCS: 51600

== ENCOUNTER → 2018-03-12 | Outpatient (CLI) | payer MEDICARE ==
[2018-03-13 00:15] LABS: BLOOD UREA NITROGEN 29 MG/DL (7-18); CREATININE FOR GFR 1.48 MG/DL (0.55-1.30); GLOMERULAR FILTRATION RATE 37.3 (>45); GLUCOSE, FASTING 200 MG/DL (70-100); SODIUM LEVEL 140 MEQ/L (136-145)
[2018-03-13 00:16] LABS: ANION GAP 8 MEQ/L (8-16); CALCIUM LEVEL 8.2 MG/DL (8.8-10.2); CARBON DIOXIDE LEVEL 25 MEQ/L (21-32); CHLORIDE LEVEL 107 MEQ/L (98-107); POTASSIUM SERUM 4.2 MEQ/L (3.5-5.1)
== END ==
LOC: M SMT 08:51
DX: N13.5 Crossing vessel and stricture of ureter without hydronephrosis (principal)
CPT/HCPCS: 80048

== ENCOUNTER → 2018-04-09 | Outpatient (CLI) | payer MEDICARE | LOC: M RAD 10:44 | DX: C18.9 Malignant neoplasm of colon, unspecified (principal); Z12.31 Encounter for screening mammogram for malignant neoplasm of breast | CPT/HCPCS: 77067 ==

== ENCOUNTER → 2018-04-11 | Outpatient (REF) | payer MEDICARE ==
[2018-04-11 13:47] LABS: CARCINOEMBRYONIC ANTIGEN 2.4 NG/ML (<2.5)
== END ==
LOC: M LAB REF 13:03
DX: C19 Malignant neoplasm of rectosigmoid junction (principal)
CPT/HCPCS: 82378

== ENCOUNTER → 2018-05-27 | Outpatient (CLI) | payer MEDICARE | LOC: M RAD 09:06 | DX: N13.5 Crossing vessel and stricture of ureter without hydronephrosis (principal); N28.1 Cyst of kidney, acquired | CPT/HCPCS: 76775 ==

== ENCOUNTER → 2018-07-16 | Outpatient (REF) | payer MEDICARE ==
[2018-07-16 12:30] LABS: ESTIMATED AVERAGE GLUCOSE 189 MG/DL (60-110); HEMOGLOBIN A1c 8.2 %
[2018-07-16 12:41] LABS: ALBUMIN/GLOBULIN RATIO 1.08 (1.00-1.93); ALKALINE PHOSPHATASE 108 U/L (45-117); ALT/SGPT 21 U/L (12-78); ANION GAP 10 MEQ/L (8-16); AST/SGOT 12 U/L (7-37); BLOOD UREA NITROGEN 33 MG/DL (7-18); CALCIUM LEVEL 8.7 MG/DL (8.8-10.2); CARBON DIOXIDE LEVEL 24 MEQ/L (21-32); CHLORIDE LEVEL 103 MEQ/L (98-107); CHOLESTEROL LEVEL 173 MG/DL (<200); CHOLESTEROL RISK RATIO 3.931 (<5); CREATININE FOR GFR 1.45 MG/DL (0.55-1.30); FREE T4 1.22 NG/DL (0.76-1.46); GLOMERULAR FILTRATION RATE 38.2 (>45); GLUCOSE, FASTING 194 MG/DL (70-100); HDL CHOLESTEROL 44 MG/DL (>40); LDL CHOLESTEROL 89 MG/DL (<100); NON-HDL-C 129 MG/DL; POTASSIUM SERUM 4.6 MEQ/L (3.5-5.1); SODIUM LEVEL 137 MEQ/L (136-145); TOTAL PROTEIN 7.7 GM/DL (6.4-8.2); TRIGLYCERIDES LEVEL 201 MG/DL (<150)
[2018-07-16 13:07] LABS: MAU/CREAT RATIO 143.1 MCG/MG (0.0-30.0)
== END ==
LOC: M SFHCCLAY 07:14
DX: N13.1 Hydronephrosis with ureteral stricture, not elsewhere classified (principal); E11.8 Type 2 diabetes mellitus with unspecified complications; E03.9 Hypothyroidism, unspecified; E78.2 Mixed hyperlipidemia
CPT/HCPCS: 84443

== ENCOUNTER → 2018-08-25 | Outpatient (CLI) | payer MEDICARE | LOC: M RAD 06:30 | DX: N28.1 Cyst of kidney, acquired (principal); N26.1 Atrophy of kidney (terminal); N13.5 Crossing vessel and stricture of ureter without hydronephrosis | CPT/HCPCS: 76775 ==

== ENCOUNTER 2018-10-21 11:21 | Emergency (ER) | payer MEDICARE ==
[~2018-10-21] VITALS: Ht 157.5 cm; Wt 89.6 kg
[~2018-10-21 11:21] MED LIST changes: -CEFD1CAP8 PO; -LOSA50TA88 PO
[2018-10-21] MEDS ORDERED: LOSA50TA88 PO (11:31)
[2018-10-21 12:01] LABS: BASO % 0.3 % (0.0-1.0); EOS # 0.1 10^3/uL (0.0-0.50); EOS % 0.7 % (0.0-3.0); HEMATOCRIT 27.8 % (36.0-47.0); HEMOGLOBIN 9.3 g/dl (12.0-15.5); LYMPH # 0.5 10^3/uL (1.5-4.5); LYMPH % 6.5 % (24.0-44.0); MEAN CORPUSCULAR HEMOGLOBIN 29.3 pg (27.0-33.0); MEAN CORPUSCULAR HGB CONC 33.5 g/dl (32.0-36.5); MEAN CORPUSCULAR VOLUME 87.7 fl (80.0-96.0); MONO # 0.5 10^3/uL (0.0-0.8); MONO % 6.3 % (0.0-5.0); NEUTROPHILS # 6.2 10^3/uL (1.8-7.7); NEUTROPHILS % 85.6 % (36.0-66.0); PLATELET COUNT, AUTOMATED 237 10^3/uL (150-450); RED BLOOD COUNT 3.17 10^6/uL (4.00-5.40); WHITE BLOOD COUNT 7.3 10^3/uL (4.0-10.0)
[2018-10-21 12:08] LABS: INR 1.1; PROTHROMBIN TIME 14.4 SECONDS (12.1-14.4)
--- NOTE | 2018-10-21 12:14 | REP ---
Portable chest x-ray: Single view. History: Chest pain. Comparison study: February 28, 2018. Findings: EKG monitoring electrodes overlie the chest. Lungs are symmetrically aerated and clear. Pleural angles are sharp. Heart size is normal. Pulmonary vasculature is not increased. No significant bony abnormality is seen. Impression: No active disease. Electronically Signed by Jak Omalley MD 10/21/2018 12:06 P
[2018-10-21] MEDS ORDERED: NS 1,000 ML IV ONE (12:30)
[2018-10-21 12:37] LABS: ALBUMIN 3.4 GM/DL (3.2-5.2); ALT/SGPT 16 U/L (12-78); BILIRUBIN,DIRECT 0.5 MG/DL (0.0-0.2); BILIRUBIN,TOTAL 1.6 MG/DL (0.2-1.0); BLOOD UREA NITROGEN 27 MG/DL (7-18); CALCIUM LEVEL 8.2 MG/DL (8.8-10.2); CARBON DIOXIDE LEVEL 24 MEQ/L (21-32); CHLORIDE LEVEL 99 MEQ/L (98-107); CK-MB VALUE MASS < 1.0 NG/ML (<3.6); CPK CREATINE PHOSPHOKINASE 43 U/L (26-192); CREATININE FOR GFR 1.68 MG/DL (0.55-1.30); GLOMERULAR FILTRATION RATE 32.2 (>45); GLUCOSE, FASTING 305 MG/DL (70-100); LIPASE 55 U/L (73-393); MB/CK RELATIVE INDEX 2.33 (< OR =4); NT-PRO BNP 640 PG/ML (<125); POTASSIUM SERUM 4.2 MEQ/L (3.5-5.1); SODIUM LEVEL 134 MEQ/L (136-145); TROPONIN I < 0.02 NG/ML (< 0.10)
--- NOTE | 2018-10-21 12:38 | REP ---
CT Head without contrast HISTORY: Syncope COMPARISON: 06/21 There is no intraparenchymal hemorrhage, acute infarct, mass or midline shift. A punctate calcification is present in the right frontal lobe. The ventricular system and cortical sulci as well as subarachnoid space in the posterior fossa are dilated consistent with minimal volume loss. There is no extra cerebral collection. There is no fracture. The visualized sinuses are clear. IMPRESSION: There is no intracranial lesion. Electronically Signed by Tano Rowell MD 10/21/2018 12:30 P
[2018-10-21 12:51] LABS: VENOUS BASE EXCESS -3.4 (-2.0-2.0); VENOUS HCO3 22.1 MEQ/L (23.0-27.0); VENOUS O2 SATURATION 62.4 % (60.0-80.0); VENOUS PARTIAL PRESSURE CO2 41.3 mmHg (38.0-50.0); VENOUS PH 7.346 UNITS (7.330-7.430); VENOUS STANDARD HCO3 21.1 MEQ/L; VENOUS TOTAL CO2 23.4 MEQ/L (24.0-28.0)
[2018-10-21 14:14] LABS: APPEARANCE, URINE MANUAL HAZY (CLEAR); COLOR, URINE MANUAL YELLOW (YELLOW); PROTEIN, URINE MANUAL TRACE mg/dL (NEGATIVE)
[2018-10-21 14:15] LABS: BILIRUBIN, URINE MANUAL NEGATIVE (NEGATIVE); BLOOD URINE MANUAL POSITIVE (NEGATIVE); GLUCOSE, URINE (UA) MANUAL 1+(100 MG/DL) mg/dL (NEGATIVE); KETONE, URINE MANUAL NEGATIVE (NEGATIVE); LEUKOCYTE ESTERASE, URINE MAN POSITIVE (NEGATIVE); NITRITE, URINE MANUAL POSITIVE (NEGATIVE); UROBILINOGEN, URINE MANUAL NORMAL (NORMAL)
[2018-10-21 14:18] LABS: BACTERIA, URINE LARGE AMOUNT; HYALINE CAST, URINE NONE SEEN /lpf (0-1); SQUAMOUS EPITHELIAL CELL URINE SMALL AMOUNT /hpf (SMALL AMT); TRANSITIONAL EPI CELLS, URINE SMALL AMOUNT /hpf; WBC, URINE TNTC /hpf (0-3)
[2018-10-21] MEDS ORDERED: cefTRIAXone SOD 1 GM in D5W MINI-BAG PLUS 50 ML IV ONE (14:30)
[2018-10-21] MEDS ORDERED: CEFD1CAP8 PO (14:35)
[2018-10-21 15:32] VITALS: BP 134/61
--- NOTE | 2018-10-21 18:41 | ECGEPIP ---
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
[2018-11-04] MEDS ORDERED: XANA0.5T PO (11:42)
== END 2018-10-21 15:53 | disposition home or self-care (01) ==
LOC: M ED 11:21
DX: N39.0 Urinary tract infection, site not specified (principal); I95.1 Orthostatic hypotension; C19 Malignant neoplasm of rectosigmoid junction; Z91.81 History of falling; E03.9 Hypothyroidism, unspecified; Z86.711 Personal history of pulmonary embolism; Z86.14 Personal history of Methicillin resistant Staphylococcus aureus infection; Z87.891 Personal history of nicotine dependence; Z88.8 Allergy status to other drugs, medicaments and biological substances; Z91.041 Radiographic dye allergy status; Z79.899 Other long term (current) drug therapy; Z79.4 Long term (current) use of insulin; Z90.49 Acquired absence of other specified parts of digestive tract; Z90.89 Acquired absence of other organs; R91.8 Other nonspecific abnormal finding of lung field
CPT/HCPCS: 70450; 71045; 71250; 74176; 80048; 80076; 81000; 82550; 82553; 82803; 83690; 83880; 84443; 84484; 85025; 85610; 93005; 93041; 96361; 96365; 99285; J0696

== ENCOUNTER → 2018-10-21 | Outpatient (CLI) | payer MEDICARE ==
[~2018-10-21] MED LIST changes: +ACET-683 PO; +ATOR1TAB21 PO; +BASA100I SC; +CALC12502 PO; +CALC1CAP31 PO; +CEFD1CAP8 PO; +CIPR-249 PO; +CIPR-250 PO; +COLA100C5 PO; -CYSTO-CONRAY II 17.2% 250ML VIAL (Q9958) As Ordered; +DOCU10CA PO; +DRIS50003 PO; +FLAG500T PO; +GABA-843 PO; +GLIP5TAB2; +GLIP5TAB20 PO; +IBUP1TAB7 PO; +JANU100T PO; +LANTINJ4 SUBQ; +LEVO75TA4 PO; +LOMO2.5T PO; +LOSA50TA88 PO; +LOVE0.6I2 SC; +MAGN500C PO; +METF500T13 PO; +MILK120011 PO; +MYLI40DR PO; +NEUR100C PO; +NEUR300C PO; +No Historical Meds; +OXYB5TAB10 PO; +OXYC1TAB23 PO; +PRAM0.5T7 PO; +SYNT50TA PO; +TRAM50TA2 PO; +TRES1INJ2 SC; +TYLE325T5 PO; +VALS1TAB49 PO; +ZOFR4TAB14 PO; +[UNRECOGNIZED DRUG - OTHER] PO
--- NOTE | 2018-10-21 13:06 | REP ---
CT chest without contrast: History: Restaging colon carcinoma. Comparison CT study is from April 09, 2018. CT findings: There is a small quantity of pericardial fluid again noted unchanged. No pleural effusion is seen. Left coronary artery vascular calcifications again noted. No mediastinal mass or adenopathy is observed. No extrathoracic mass or adenopathy is seen. There are however several new small noncalcified pulmonary nodules in the right lung consistent with pulmonary metastatic disease. These range in size only up to 7 mm. No bony destructive lesion is seen. No infiltrate is noted. Impression: There are several new noncalcified pulmonary nodules in the right lung compatible with metastatic disease. Stable pericardial fluid versus thickening. Electronically Signed by Jak Omalley MD 10/21/2018 01:51 P
--- NOTE | 2018-10-21 13:22 | REP ---
CT abdomen and pelvis without IV or oral contrast: History: Restaging colon carcinoma. Comparison CT study is from April 09, 2018. CT findings: There is a low-density lesion in the remaining left lobe superiorly measuring 17 mm in greatest diameter which is unchanged from the April 09, 2018 prior study by my measurement. The left lobe of the liver is otherwise been resected. No other hepatic lesion is seen. Spleen is normal size homogeneous in texture. No adrenal lesion is seen. No pancreatic abnormalities observed. There is no evidence of retroperitoneal adenopathy. Small and large bowel loops are unremarkable. There are water to diverticula in the left colon. No uterine or ovarian abnormality is seen. Urinary bladder is largely empty but appears intact. No pelvic mass or adenopathy is seen. No abdominal wall defect is observed. Impression: Stable 17 mm low density lesion in the remaining left lobe of the liver. Status post partial left lobe hepatectomy. No acute intra-abdominal abnormality. Left renal atrophy unchanged. The previously noted left ureteral stent has been removed. Electronically Signed by Jak Omalley MD 10/21/2018 01:51 P
== END ==
LOC: M RAD 10:52
PROVIDERS: ATTEND Nurse Practitioner Family
DX: C19 Malignant neoplasm of rectosigmoid junction (principal); R91.8 Other nonspecific abnormal finding of lung field

== ENCOUNTER → 2018-11-04 | Outpatient (CLI) | payer MEDICARE ==
[~2018-11-04] MED LIST changes: +CEFD1CAP8 PO; +LOSA50TA88 PO; +XANA0.5T PO
--- NOTE | 2018-11-05 08:36 | REP ---
PET/CT: History: Restaging colon carcinoma. Comparisons: Comparison PET-CT December 01, 2015. Comparison CT study of the chest and abdomen and pelvis October 21, 2018. The CT study of the chest showed new pulmonary nodules. TECHNIQUE: 1 hour five minutes following the intravenous injection of a 8.2 mCi dose of F-18 FDG, three-dimensional PET scintigraphy is acquired from the skull base to the proximal thighs. Triplanar noncontrast CT scanning is acquired through the same anatomic range for attenuation correction, and image registration with scan parameters optimized to minimize radiation exposure to the patient. PET scintigraphy and CT datasets were fused and displayed on a workstation with multiplanar and projection display capability. PET/CT Findings: There is a 3 cm hypermetabolic mass along the left lateral wall of the rectum involving the left perirectal and para metrial region and left posterolateral pelvic side wall. This it is adjacent to what appears to be a low anterior colon anastomosis. Maximum standard uptake value within it is 10.9. This is new when compared with the December 01, 2015 prior PET-CT examination. No abnormal lake hypermetabolic uptake is seen elsewhere in the pelvis or within the retroperitoneum. No abnormal hypermetabolic uptake is visible within the liver. There is marginally hypermetabolic uptake in one of the pulmonary nodules. This nodule is in the left upper lobe pleural-based anteriorly where maximum standard uptake value is 2.25. None of the other multiple bilateral pulmonary nodules are hypermetabolic. No hypermetabolic hilar or mediastinal adenopathy is seen. No abnormal uptake is seen in the head and neck soft tissues. No abnormal skeletal hypermetabolic uptake is seen. There is a benign bone island in the left iliac bone. Impression: There is evidence of recurrent malignant disease in the left pelvis, perirectal and parametrial soft tissues extending to the left posterior pelvic sidewall. One of the new pulmonary metastatic nodules shows slightly hypermetabolic uptake. No other abnormal uptake is seen. Electronically Signed by Jak Omalley MD 11/05/2018 08:27 A
== END ==
LOC: M PLARAD 13:54
PROVIDERS: ATTEND Internal Medicine Medical Oncology
DX: C18.9 Malignant neoplasm of colon, unspecified (principal); C78.02 Secondary malignant neoplasm of left lung
CPT/HCPCS: 78815; A9552

== ENCOUNTER → 2018-11-07 | Outpatient (REF) | payer MEDICARE ==
[~2018-11-07] MED LIST changes: +PRED50TA PO
== END ==
LOC: M LAB REF 12:01
PROVIDERS: ATTEND Internal Medicine Medical Oncology
DX: C18.9 Malignant neoplasm of colon, unspecified (principal)

== ENCOUNTER → 2018-11-18 | Outpatient (REF) | payer MEDICARE ==
[2018-11-18 11:39] LABS: BASO % 0.4 % (0.0-1.0); EOS # 0.2 10^3/uL (0.0-0.50); EOS % 3.8 % (0.0-3.0); HEMATOCRIT 30.5 % (36.0-47.0); HEMOGLOBIN 9.9 g/dl (12.0-15.5); LYMPH # 0.6 10^3/uL (1.5-4.5); LYMPH % 11.4 % (24.0-44.0); MEAN CORPUSCULAR HEMOGLOBIN 28.9 pg (27.0-33.0); MEAN CORPUSCULAR HGB CONC 32.5 g/dl (32.0-36.5); MEAN CORPUSCULAR VOLUME 89.2 fl (80.0-96.0); MONO # 0.5 10^3/uL (0.0-0.8); MONO % 8.3 % (0.0-5.0); NEUTROPHILS # 4.2 10^3/uL (1.8-7.7); NEUTROPHILS % 75.7 % (36.0-66.0); PLATELET COUNT, AUTOMATED 182 10^3/uL (150-450); RED BLOOD COUNT 3.42 10^6/uL (4.00-5.40); WHITE BLOOD COUNT 5.5 10^3/uL (4.0-10.0)
[2018-11-18 11:57] LABS: BILIRUBIN,TOTAL 0.8 MG/DL (0.2-1.0); CALCIUM LEVEL 8.9 MG/DL (8.8-10.2); CHOLESTEROL RISK RATIO 4.17 (<5); CREATININE FOR GFR 1.4 MG/DL (0.55-1.30); FREE T4 1.14 NG/DL (0.76-1.46); GLOMERULAR FILTRATION RATE 39.7 (>45); POTASSIUM SERUM 4.3 MEQ/L (3.5-5.1); THYROID STIMULATING HORMONE 2.67 uIU/ML (0.358-3.740)
[2018-11-18 11:59] LABS: HEMOGLOBIN A1c 8.1 %
== END ==
LOC: M SFHCCLAY 07:25
PROVIDERS: ATTEND Nurse Practitioner Family
DX: E03.9 Hypothyroidism, unspecified (principal); E78.2 Mixed hyperlipidemia; E11.8 Type 2 diabetes mellitus with unspecified complications; N13.1 Hydronephrosis with ureteral stricture, not elsewhere classified
CPT/HCPCS: 80053; 80061; 83036; 84439; 84443; 85025; G0463

== ENCOUNTER 2018-11-25 11:12 | Day surgery (SDC) | payer MEDICARE ==
[~2018-11-25] VITALS: Ht 157.5 cm; Wt 88.9 kg
[~2018-11-25 11:12] MED LIST changes: +NS 1,000 ML IV ONE; -PRED50TA PO
[2018-11-25] MEDS ORDERED: PROPOFOL 200 MG/20 ML VIAL As Ordered ONE ×3 (13:31→13:49)
[2018-11-25] MEDS ORDERED: LIDOCAINE 2% INJ 100 MG/5 ML SDV (FOR ANES.) As Ordered ONE (13:32)
--- NOTE | 2018-11-25 14:18 | ROOR ---
Patient Name: Elisabeth Yang Procedure Date: 11/25/2018 1:24 PM Date of : 1950 Age: 68 Room: [facility] Gender: Female Note Status: Finalized Procedure: Colonoscopy Indications: Suspected colorectal cancer, Abnormal PET scan of the GI tract Providers: Mik Barber MD Referring MD: Rani Blas NP Requesting Provider: Medicines: Monitored Anesthesia Care Complications: No immediate complications. Procedure: Pre-Anesthesia Assessment: - Prior to the procedure, a History and Physical was performed, and patient medications and allergies were reviewed. The patient is competent. The risks and benefits of the procedure and the sedation options and risks were discussed with the patient. All questions were answered and informed consent was obtained. Patient identification and proposed procedure were verified by the physician, the nurse and the anesthesiologist in the procedure room. Mental Status Examination: alert and oriented. CV Examination: regular rate and rhythm. Prophylactic Antibiotics: The patient does not require prophylactic antibiotics. Prior Anticoagulants: The patient has taken no previous anticoagulant or antiplatelet agents. ASA Grade Assessment: III - A patient with severe systemic disease. After reviewing the risks and benefits, the patient was deemed in satisfactory condition to undergo the procedure. The anesthesia plan was to use monitored anesthesia care (MAC). Immediately prior to administration of medications, the patient was re-assessed for adequacy to receive sedatives. The heart rate, respiratory rate, oxygen saturations, blood pressure, adequacy of pulmonary ventilation, and response to care were monitored throughout the procedure. The physical status of the patient was re-assessed after the procedure. The Colonoscope was introduced through the anus and advanced to the cecum, identified by appendiceal orifice and ileocecal valve. The colonoscopy was somewhat difficult due to a partially obstructing mass. Successful completion of the procedure was aided by changing endoscopes. The small pediatric scope passed the narrowing without problem. The patient tolerated the procedure well. The quality of the bowel preparation was excellent. Findings: The perianal and digital rectal examinations were normal. An infiltrative and ulcerated partially obstructing medium-sized mass was found at 15 cm proximal to the anus. The mass was partially circumferential (involving one-third of the lumen circumference). The mass measured two cm in length. Oozing was present. There were a few old leonardo noted in the bowel wall consistent with her prior surgery with an anastomosis at this level. Biopsies were taken with a cold forceps for histology. The pathology specimen was placed into Bottle Number 1. A few small-mouthed diverticula were found in the sigmoid colon. 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 Biopsied. - Diverticulosis in the sigmoid colon. Recommendation: - Discharge patient to home. - Resume previous diet. - Continue present medications. - Await pathology results. - Telephone endoscopist for pathology results in 1 week. Mik Barber MD Mik Barber MD 11/25/2018 2:17:54 PM This report has been signed electronically. Number of Addenda: 0 Note Initiated On: 11/25/2018 1:24 PM Estimated Blood Loss: Estimated blood loss was minimal.
[2018-11-25 14:25] VITALS: BP 173/76
[2018-12-01] MEDS ORDERED: PRED50TA PO (12:21)
== END 2018-11-25 14:25 | disposition home or self-care (01) ==
LOC: M OPP 11:12
PROVIDERS: ATTEND Surgery
DX: R93.3 Abnormal findings on diagnostic imaging of other parts of digestive tract (principal); C18.9 Malignant neoplasm of colon, unspecified; K56.690 Other partial intestinal obstruction; K57.30 Diverticulosis of large intestine without perforation or abscess without bleeding; E11.9 Type 2 diabetes mellitus without complications; Z79.2 Long term (current) use of antibiotics; Z79.899 Other long term (current) drug therapy; Z88.6 Allergy status to analgesic agent; Z88.8 Allergy status to other drugs, medicaments and biological substances; Z87.891 Personal history of nicotine dependence; Z92.3 Personal history of irradiation; Z92.21 Personal history of antineoplastic chemotherapy; Z86.711 Personal history of pulmonary embolism

== ENCOUNTER → 2018-12-05 | Outpatient (CLI) | payer MEDICARE ==
[~2018-12-05] MED LIST changes: +GASTROGRAFIN SOLUTION 30ML (Q9963) As Ordered ONE; +ISOVUE-370 76% 100ML VIAL (Q9967) As Ordered ONE; -NS 1,000 ML IV ONE; +PRED50TA PO; +TYLE500T78 PO
--- NOTE | 2018-12-05 19:47 | REP ---
CT of the abdomen and pelvis with IV and bowel contrast: Comparison is 10/21/2018. The studies performed for E current rectal cancer. The visualized lung keith are unremarkable. There is partial hepatectomy with resection of the hepatic left lobe. This is unchanged. There is a 15 mm cyst in the remaining left lobe of the liver, unchanged. There is a 7 mm cyst inferomedially in the right lobe of the liver, unchanged from 08/11/2014 which was also performed with IV contrast. Because of the small size. This cyst cannot be visualized on studies without IV contrast. The hepatic parenchyma is otherwise homogeneous. No hepatic metastases are identified. The pancreas and spleen are unchanged and unremarkable. The adrenals are unremarkable. The right kidney is unremarkable. There is diffuse atrophy of the left kidney. This is unchanged. There is no left hydronephrosis. The abdominal aorta is unremarkable. There is no retroperitoneal adenopathy. There is no mesenteric adenopathy. There is no ascites. Pelvis: The terminal ileum is unremarkable. The appendix is unremarkable. There is a circumferential anastomotic suture line in the rectosigmoid colon, unchanged. There is no evidence of tumor recurrence. The uterus and adnexa are unchanged. There is no pelvic adenopathy or ascites. The bladder is unremarkable. There are no lytic, blastic or destructive skeletal changes. There is bilateral hip osteoarthritis. Impression: No evidence of tumor recurrence at the anastomotic suture line in the rectosigmoid colon. No evidence of metastatic disease or adenopathy. No ascites. There are two hepatic cysts as described. There is left renal atrophy, unchanged. Electronically Signed by Kt Razo MD 12/05/2018 07:39 P
== END ==
LOC: M RAD 15:37
PROVIDERS: ATTEND Internal Medicine Hematology & Oncology
DX: K76.89 Other specified diseases of liver (principal); N28.89 Other specified disorders of kidney and ureter; Z85.048 Personal history of other malignant neoplasm of rectum, rectosigmoid junction, and anus
CPT/HCPCS: 74177; Q9963; Q9967

== ENCOUNTER 2018-12-10 08:16 | Day surgery (SDC) | payer MEDICARE ==
[~2018-12-10] VITALS: Ht 157.5 cm; Wt 87.1 kg
[~2018-12-10 08:16] MED LIST changes: -GASTROGRAFIN SOLUTION 30ML (Q9963) As Ordered ONE; -ISOVUE-370 76% 100ML VIAL (Q9967) As Ordered ONE
[2018-12-10] MEDS ORDERED: ceFAZolin 2 GM/D5W 50 ML IV BAG (J0690 PER 500MG) As Ordered ONE (08:38)
[2018-12-10] MEDS ORDERED: MUPIROCIN 2% OINT 22 GM TUBE TOP ONE (09:15)
[2018-12-10] MEDS ORDERED: LIDOCAINE 2% INJ 100 MG/5 ML SDV (FOR ANES.) As Ordered ONE (09:27)
[2018-12-10] MEDS ORDERED: PROPOFOL 200 MG/20 ML VIAL As Ordered ONE (09:27)
[2018-12-10] MEDS ORDERED: ONDANSETRON 4MG/2ML VIAL (J2405) As Ordered ONE (09:27)
[2018-12-10] MEDS ORDERED: fentaNYL 100 MCG/2 ML INJECTION (J3010) As Ordered ONE (09:28)
[2018-12-10] MEDS ORDERED: MIDAZOLAM INJ 2 MG/2 ML VIAL (J2250) As Ordered ONE (09:28)
[2018-12-10] MEDS ORDERED: LIDOCAINE 1% MDV 20ML VIAL As Ordered ONE (09:30)
[2018-12-10] MEDS ORDERED: HEPARIN SOD (PORCINE) 5000 UNITS/ML VIAL As Ordered ONE (09:30)
[2018-12-10] MEDS ORDERED: BUPIVACAINE LIPOSOME/PF 1.3% 20ML VIAL (13.3MG/ML)(EXPAREL)(C9290 PER1MG) As Ordered ONE (09:30)
[2018-12-10] MEDS ORDERED: HumaLOG INSULIN (NovoLOG) PER UNIT As Ordered ONE (09:41)
[2018-12-10] MEDS ORDERED: HumaLOG INSULIN (NovoLOG) PER UNIT SC ONE (09:45)
[2018-12-10] MEDS ORDERED: LR 1,000 ML IV ONE (09:45)
--- NOTE | 2018-12-10 11:08 | REP ---
Chest one-view HISTORY: Ockthx-E-Ucqa placement Comparison: 10/21/2018 The lungs are clear. The heart is normal in size. The pulmonary vasculature is normal in appearance. The patient is status post Umefnj-G-Dkuh placement in the superior vena cava. Impression: No acute disease. Electronically Signed by Tano Rowell MD 12/10/2018 10:59 A
[2018-12-10 11:10] VITALS: BP 151/76
[2018-12-10] MEDS ORDERED: TRAM50TA2 PO (15:17)
--- NOTE | 2018-12-11 07:36 | RO ---
DATE OF PROCEDURE: 12/10/2018 PREPROCEDURE DIAGNOSIS: Metastatic colon carcinoma, recurrent. POSTPROCEDURE DIAGNOSIS: Metastatic colon carcinoma, recurrent. PROCEDURE: Insertion of left subclavian PowerPort with fluoroscopic control. SURGEON: Mik Guido MD GARMENT FINISHER: ANESTHESIA: Monitored anesthesia care (MAC). FINDINGS: All contours were smooth. The port was placed in the prior port position. Catheter was positioned at the junction of the right atrium and the superior vena cava (SVC). PROCEDURE: Under satisfactory MAC anesthesia, the patient was prepped and draped in the usual sterile fashion. The subclavian vein was found on the first pass and a wire was placed with production of premature ventricular contractions (PVCs). The proposed incision site where she had her previous PowerPort was infiltrated with Exparel. Incision was made and a subcutaneous pocket was created without difficulty. The tract was dilated, which did go through some scar, although it eventually dilated well. A Peel-Away introducer was placed and a catheter was placed, low numbers down, into the right atrium. A tunnel was created and pulled through the port incision site. The catheter was positioned at the SVC/right atrial junction under fluoroscopic control. Catheter was cut to appropriate length, collar was placed and port connected. The port was aspirated and flush with heparinized saline without difficulty. It was secured to the chest wall with two #2-0 silk sutures. A final x-ray showed the port to be in good position, all contours smooth. A final flush of 100 units/mL of heparin was infused. The incisions were closed with running #3-0 Vicryl suture for the subcutaneous tissue and running #4-0 Monocryl subcuticular suture for the skin. The patient tolerated the procedure well and left the operating room in satisfactory condition for the recovery room.
== END 2018-12-10 11:18 | disposition home or self-care (01) ==
LOC: M SDC 08:16
PROVIDERS: ATTEND Thoracic Surgery (Cardiothoracic Vascular Surgery)
DX: C18.9 Malignant neoplasm of colon, unspecified (principal); R91.8 Other nonspecific abnormal finding of lung field; E03.9 Hypothyroidism, unspecified; E11.9 Type 2 diabetes mellitus without complications; E78.00 Pure hypercholesterolemia, unspecified; K57.30 Diverticulosis of large intestine without perforation or abscess without bleeding; C78.7 Secondary malignant neoplasm of liver and intrahepatic bile duct; M65.321 Trigger finger, right index finger; Z68.36 Body mass index [BMI] 36.0-36.9, adult; J30.89 Other allergic rhinitis; Z88.6 Allergy status to analgesic agent; Z88.8 Allergy status to other drugs, medicaments and biological substances; Z91.041 Radiographic dye allergy status; Z79.899 Other long term (current) drug therapy; Z79.84 Long term (current) use of oral hypoglycemic drugs; Z86.79 Personal history of other diseases of the circulatory system; Z78.0 Asymptomatic menopausal state; Z92.3 Personal history of irradiation; Z92.21 Personal history of antineoplastic chemotherapy; Z86.711 Personal history of pulmonary embolism; Z87.891 Personal history of nicotine dependence
CPT/HCPCS: 36561; 71045; 76000; C1788; C9290; J0690; J2250; J2405; J3010

== ENCOUNTER 2018-12-11 11:07 | Outpatient (CLI) | payer MEDICARE ==
[~2018-12-11] VITALS: Ht 157.5 cm; Wt 88.2 kg
[~2018-12-11 11:07] MED LIST changes: +ACETAMINOPHEN TAB 650MG DOSE (2X325MG) PO SCH; +diphenhydrAMINE 25 MG CAP PO SCH
[2018-12-11 11:30] VITALS: BP 197/91
[2018-12-11] MEDS ORDERED: SODIUM CHLORIDE 0.9% INJ 10 ML SYR IV PRN (12:30)
[2018-12-11 14:09] VITALS: BP 160/87
[2018-12-11 14:35] VITALS: BP 148/86
[2018-12-12] MEDS ORDERED: SODIUM CHLORIDE 0.9% INJ 10 ML SYR IV SCH (09:00)
[2018-12-24] MEDS ORDERED: ONDA8TAB7 PO (11:49)
[2018-12-24] MEDS ORDERED: PROC10TA4 PO (11:49)
[2018-12-24] MEDS ORDERED: LOPE2CAP PO ×2 (11:49→13:41)
== END 2018-12-11 18:25 | disposition home or self-care (01) ==
LOC: M INFU 11:07 → M OPCLI4PR 11:07 → M MS4PR 11:50 → M INFU 11:50 → M OPCLI4PR 18:25 → M INFU 18:33 → M MS4PR 18:33 → EDSTATUS 18:34
PROVIDERS: ATTEND Internal Medicine Medical Oncology
DX: D64.9 Anemia, unspecified (principal); C18.9 Malignant neoplasm of colon, unspecified; Z91.041 Radiographic dye allergy status; Z88.8 Allergy status to other drugs, medicaments and biological substances
CPT/HCPCS: 36415; 36430; 86850; 86900; 86901; 86920; P9016

== ENCOUNTER → 2018-12-17 | Outpatient (CLI) | payer MEDICARE ==
[~2018-12-17] MED LIST changes: -ACETAMINOPHEN TAB 650MG DOSE (2X325MG) PO SCH; +LOPE2CAP PO; +ONDA8TAB7 PO; +PROC10TA4 PO; -diphenhydrAMINE 25 MG CAP PO SCH
--- NOTE | 2018-12-17 12:31 | REP ---
CHEST X-RAY: Two views. HISTORY: Postop Ytpwee-Y-Ibyb placement. Comparison study December 10, 2018. FINDINGS: A transvenous Motowg-W-Mpjw is seen in place via the left subclavian vein. Its tip is seen in the expected location of the superior vena cava. The lungs are well inflated and clear. There is no evidence of pneumothorax or hydrothorax. Heart is not enlarged. The aorta is a little tortuous. There is mild pleuroparenchymal fibrosis in the right base. IMPRESSION: No active disease. Xaaiuc-I-Wsmt catheter in place via the left side. Electronically Signed by Jak Omalley MD 12/17/2018 05:03 P
== END ==
LOC: M SMT 10:36
PROVIDERS: ATTEND Thoracic Surgery (Cardiothoracic Vascular Surgery)
DX: Z01.818 Encounter for other preprocedural examination (principal); Z95.828 Presence of other vascular implants and grafts; J84.10 Pulmonary fibrosis, unspecified

== ENCOUNTER → 2019-01-19 | Outpatient (REF) | payer MEDICARE ==
[~2019-01-19] MED LIST changes: +ACET-897 PO; +ATOR1TAB19 PO; +ATRO0.05 IVP; +CARV6.25 PO; +DEXA10VL IV; +EMEN150S IV; +HYDR-4571 PO; +LEVO250T12 PO; +LOPE1CAP5 PO; +METF-839 PO; +NEUP480I3 INJ; +NITR-67 PO; +OXYC10TA12 PO; +OXYC15TA76 PO; +OXYC1TAB15 PO; +PALO0.25 IV; +PERC7.5T11 PO; +[UNRECOGNIZED DRUG - CODE] IV; +[UNRECOGNIZED DRUG - CODE] IV; +[UNRECOGNIZED DRUG - CODE] IV; +[UNRECOGNIZED DRUG - CODE] IV; +[UNRECOGNIZED DRUG - CODE] IV
[2019-01-19 12:03] LABS: CALCIUM LEVEL 8.1 MG/DL (8.8-10.2); CREATININE FOR GFR 1.32 MG/DL (0.55-1.30); GLOMERULAR FILTRATION RATE 42.5 (>45); MAGNESIUM LEVEL 2.1 MG/DL (1.8-2.4)
== END ==
LOC: M SFHCCLAY 08:29
PROVIDERS: ATTEND Nurse Practitioner Family
DX: E11.8 Type 2 diabetes mellitus with unspecified complications (principal)
CPT/HCPCS: 80048; 83735; G0463

== ENCOUNTER → 2019-01-22 | Outpatient (CLI) | payer MEDICARE ==
[~2019-01-22] MED LIST changes: -HYDR-4571 PO; +ISOVUE-370 76% 100ML VIAL (Q9967) As Ordered ONE; -NITR-67 PO; -OXYC10TA12 PO; -OXYC15TA76 PO
--- NOTE | 2019-01-22 18:21 | REP ---
CT ANGIOGRAM OF THE CHEST: CT ANGIO CHEST: TECHNIQUE: Axial contrast enhanced images from the thoracic inlet to the upper abdomen using 100 mL Isovue 370 intravenous contrast material with multiplanar reformations. COMPARISON CT: 10/21/[address] evidence of pulmonary embolism. There is no thoracic aortic aneurysm or dissection. The heart is slightly enlarged. There is no pleural or pericardial effusion. There is no mediastinal, hilar, or chest wall lymphadenopathy. There are multiple bilateral pulmonary nodules. Some of these have mildly increased in size since the prior exam. There is a new subcentimeter nodule in the right upper lobe on image 20. Another nodule in the right upper lobe on image 23 has increased in size and measures 4 mm in diameter. A nodule in the right lower lobe on image 42 measures 6 mm and has mildly increased in size. The subcentimeter nodule in the right lower lobe on image 44 has mildly increased in size. A larger nodule in the right middle lobe anteriorly in the costophrenic angle measures 1.1 cm and has mildly increased in size. A few other stable nodules are seen in the right lung. A subcentimeter nodule in the left upper lobe anteriorly on image 20 has slightly increased in size. There appears to be a new subcentimeter nodule on image 26. Two other stable nodules are seen in the left lung. There are mildly increased interstitial and ground glass opacities which may represent fibro atelectatic change but a mild degree of interstitial edema could not be excluded. There is a stable nodule in the left lobe of the liver. IMPRESSION: No CT evidence of pulmonary embolism. Multiple bilateral pulmonary nodules, some have mildly increased in size since the prior study of 10/21/2018. Mild scattered fibro atelectatic change or interstitial edema. Electronically Signed by Kt Ramirez MD 01/22/2019 08:36 P
--- NOTE | 2019-01-22 18:29 | REP ---
Pelvis left hip: Three views. History: Colon carcinoma. Left hip and pelvic pain. Comparison PET CT study 11/04/2018. Radiographic findings: There is an anastomotic suture in the midline and a surgical clip is seen in the left lower abdomen. Vascular calcifications noted. Bony pelvic ring is intact. Bony sacrum appears intact. Proximal femur is unremarkable. Femoral head is smooth and rounded. Periarticular soft tissues are normal in appearance. There is minimal spurring at the symphysis pubis. Some tendon insertion site spurring is seen in the greater trochanters bilaterally. Impression: No bony destructive lesion is seen. There is a bone island in the left iliac bone. No acute abnormality. Postoperative changes. Electronically Signed by Jak Omalley MD 01/22/2019 06:58 P
== END ==
LOC: M RAD 16:13
PROVIDERS: ATTEND Internal Medicine Medical Oncology
DX: C18.9 Malignant neoplasm of colon, unspecified (principal); R91.8 Other nonspecific abnormal finding of lung field; R06.02 Shortness of breath; R07.9 Chest pain, unspecified; I51.7 Cardiomegaly; M89.8X8 Other specified disorders of bone, other site
CPT/HCPCS: 71275; 73502; Q9967

== ENCOUNTER → 2019-02-06 | Outpatient (CLI) | payer MEDICARE ==
[~2019-02-06] MED LIST changes: +GASTROGRAFIN SOLUTION 30ML (Q9963) As Ordered ONE
--- NOTE | 2019-02-06 16:49 | REP ---
CT abdomen and pelvis without and with IV contrast: With oral contrast. History: Metastatic colon carcinoma. Restaging after chemo. Rectovaginal fistula. Comparison CT study December 05, 2018 and January 25, 2019. Comparison barium enema January 28, 2019. 100 ml of intravenous Isovue [address] findings: Preliminary digital utilities manager radiograph is unremarkable. Bowel gas pattern is normal. The lung bases demonstrate multiple subcentimeter noncalcified pulmonary nodules. The largest of these measures 8 mm in greatest diameter. This is a pleural-based nodule in the right middle lobe. These are felt to be unchanged from the December 05, 2018 study. There is no evidence of pleural effusion. The patient is status post partial hepatectomy with resection of the left lobe of the liver. There is a well circumscribed low density lesion superiorly in the remaining left lobe measuring 1.5 cm in diameter. This is unchanged and may be a small cyst. However, there are five or six other less well circumscribed low density lesions scattered about the right lobe of the liver which are suspicious for metastatic lesions. No adrenal lesion is seen. No pancreatic abnormalities observed. There is fatty involution of most the pancreatic head. The left kidney is quite atrophic. No renal mass lesion is seen. Spleen is homogeneous. Small and large intestinal bowel loops are normal in the upper abdomen. Pelvic CT images demonstrate soft tissue density in the left adnexal region adjacent to the rectum and the left posterior vagina and cervix. This contains some mottled gas and stool density. This is a felt to be the site of the rectovaginal fistula. There is some air in the endocervical canal and a tiny amount of air is seen in the vagina. No air is noted in the urinary bladder. This is the area of increased uptake on PET CT study from November 04, 2018. The perirectal collection of air and stool measures 3.5 cm in greatest diameter. No bony abnormality is seen. Impression: Excavated soft tissue density in the left pelvis, perirectal and para vaginal region with air in the cervix and vagina consistent with the history of recto-vaginal fistula. There are small suspected metastatic lesions in the liver. No upper abdominal adenopathy is seen. Pulmonary metastatic nodules are again noted essentially unchanged. Electronically Signed by Jak Omalley MD 02/06/2019 04:58 P
== END ==
LOC: M RAD 12:51
PROVIDERS: ATTEND Internal Medicine Medical Oncology
DX: C18.9 Malignant neoplasm of colon, unspecified (principal); C78.01 Secondary malignant neoplasm of right lung; C78.02 Secondary malignant neoplasm of left lung; R93.2 Abnormal findings on diagnostic imaging of liver and biliary tract
CPT/HCPCS: 74178; Q9963; Q9967

== ENCOUNTER → 2019-02-12 | Outpatient (CLI) | payer MEDICARE ==
[~2019-02-12] MED LIST changes: -GASTROGRAFIN SOLUTION 30ML (Q9963) As Ordered ONE; +HYDR-4571 PO; -ISOVUE-370 76% 100ML VIAL (Q9967) As Ordered ONE; +NITR-67 PO; +OXYC10TA12 PO; +OXYC15TA76 PO
--- NOTE | 2019-02-13 14:45 | REP ---
PET/CT: HISTORY: Recurrent colorectal adenocarcinoma, rectal mass and anastomotic site, left pelvic sidewall mass, suspicious pulmonary nodules, and rectovaginal fistula. Status post chemotherapy. COMPARISONS: Comparison PET/CT studies are from November 04 2018 and December 01, 2015. Comparison CT study abdomen and pelvis February 06, 2019. TECHNIQUE: 53 minutes following the intravenous injection of a 9.6 mCi dose of F-18 FDG, three-dimensional PET scintigraphy is acquired from the skull base to the proximal thighs. Triplanar noncontrast CT scanning is acquired through the same anatomic range for attenuation correction, and image registration with scan parameters optimized to minimize radiation exposure to the patient. PET scintigraphy and CT datasets were fused and displayed on a workstation with multiplanar and projection display capability. PET/CT FINDINGS: There is normal variant skeletal muscle uptake in the tongue today. Head and neck soft tissues are otherwise unremarkable. No abnormal hilar or mediastinal hypermetabolic uptake is appreciated. No abnormal hypermetabolic uptake is seen in any of the small pulmonary nodules visible today. They are essentially unchanged in size. No new pulmonary nodule is appreciated. No definite focus of hypermetabolic uptake is visible within the liver. There is no abnormal lake hypermetabolic uptake in the upper abdomen. The patient is status post left hepatectomy. In the pelvis, hypermetabolic uptake is again noted within the excavated left pelvic sidewall mass. Maximum standard uptake value here is 11.3, previously 10.9. The area has enlarged in the overall dimensions. Its excavated central zone contains air and orally administered contrast from the recent CT study of the abdomen. This confirms fistulous connection to the rectum which is adjacent. No evidence of bony involvement. The left kidney is atrophic unchanged. No hydronephrosis. No other abnormal hypermetabolic uptake is seen in the abdomen or pelvis. IMPRESSION: Hypermetabolic uptake is seen in the left perirectal and pelvic sidewall region in an excavated fistulous mass in this location. The area appears somewhat larger. Its avidity is essentially unchanged. No abnormal pulmonary parenchymal hypermetabolic uptake is seen in any of the known pulmonary nodules. These appear stable. No definite abnormal liver uptake. Electronically Signed by Jak Omalley MD 02/15/2019 12:13 P
== END ==
LOC: M PLARAD 09:17
PROVIDERS: ATTEND Internal Medicine Medical Oncology
DX: C18.9 Malignant neoplasm of colon, unspecified (principal); C78.02 Secondary malignant neoplasm of left lung
CPT/HCPCS: 78815; A9552

== ENCOUNTER 2019-02-27 10:26 | Inpatient (IN) | payer MEDICARE ==
--- NOTE | 2019-02-26 23:59 | HPE ---
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 HISTORY OF PRESENT ILLNESS: The patient is a very pleasant 68-year-old woman who had undergone a low anterior resection in 2003 for adenocarcinoma. In 2013, she was found on followup to have evidence of a recurrence at the site of her anastomosis. A low anterior resection was performed in 2013. Only three lymph nodes were recovered and two of these were positive for metastasis. She had undergone chemo-radiation following this. Subsequently she was found to have a liver metastasis and underwent a left lobe of liver resection in [place], [place] in November of 2015. In February 2018, a ureteral reimplantation was performed on the left because of ureteral obstruction. On a CT scan of the abdomen and pelvis in October of 2018, there was a suggestion of a possible new lung lesion as well as a liver lesion and a PET scan was performed. This revealed a hypermetabolic mass along the left lateral wall of the rectum. There was some marginally hypermetabolic uptake noted in one of her pulmonary nodules. She underwent a colonoscopy on November 25 which revealed recurrent carcinoma. Biopsies confirmed invasive poorly-differentiated adenocarcinoma. She was started on FOLFIRI/bevacizumab chemotherapy, but developed rectal and vaginal bleeding and subsequently had developed a rectovaginal fistula. A barium enema on January 28 confirmed a low-lying rectovaginal fistula with brisk flow of contrast from the rectum through the vagina. A CT scan of the abdomen and pelvis was obtained on February 06, and she had a most recent PET scan on February 11, 2019. She has been seen at [facility] for recommendations for further treatment. It was recommended that she undergo a diverting colostomy. The patient has had significant fecal drainage from the vagina and is now ready to proceed with the diverting colostomy. She apparently is being evaluated for possible enrollment into a clinical trial. The patient is now being admitted to undergo a laparoscopic colostomy creation. ALLERGIES: The patient reports allergies to ASPIRIN, ATENOLOL, and LISINOPRIL. CURRENT MEDICATIONS: Include atorvastatin 20 mg daily, carvedilol 6.25 mg twice daily, gabapentin 300 mg two tablets daily at bedtime, levothyroxine 75 mcg one by mouth daily, loperamide 2 mg capsules, two tablets at onset of diarrhea, oxycodone 10 mg one tablet three times a day as needed, prochlorperazine 10 mg by mouth as needed for nausea or vomiting and Tresiba FlexTouch insulin pen 22 units daily at bedtime. SURGICAL HISTORY: The patient underwent a low anterior resection in 2004. With recurrence of cancer in 2013, she underwent a repeat low anterior resection. She had a (dictation cut off) in 2015. She has had her tonsils out. She had a reimplantation of her left ureter in 2017. She has had an Gitent-I-Meqv placed and removed and has had a new Wplhjv-F-Npqy placed as well. MEDICAL HISTORY: Significant for hypothyroidism. She has diabetes and hypercholesteremia. She has colon cancer, which was initially diagnosed in 2003, recurred in 2013 and she had a hepatectomy in 2015. She now has been noted to have what appear to be small lung metastases as well as her local rectal recurrence. FAMILY HISTORY: Significant for diabetes and hypertension. SOCIAL HISTORY: The patient is . She is a former smoker who quit in 1989. She occasionally drinks wine. REVIEW OF SYSTEMS: Reveals no history of chest pain or palpitations. She denies shortness of breath, cough or wheezing. She has been voiding acceptably. She has had problems with her rectovaginal fistula recently. She does have a history of bilateral pulmonary emboli in December of 2015 that was treated with rivaroxaban for a year. PHYSICAL EXAMINATION: Patient is alert and oriented. Skin: Is warm and dry. Sclerae are anicteric. Neck is supple. Heart: Exam shows a regular rate and rhythm. The lungs are (dictation cut off). The abdomen remains borderline obese. She has an old right subcostal scar. She has an old lower midline abdominal scar beginning at the umbilicus. She has several smaller trocar site scars. There is some depression of her low midline scar. She has a fairly loose fold of adipose tissue across the lower quadrants bilaterally. The abdomen is soft and nontender without appreciable mass. She has bowel sounds present. The patient is examined supine and standing in regards to potential placement of a colostomy. Lower extremities: Reveal palpable pulses. A rectal exam was not performed at this time. LABORATORY STUDIES: The patient's most recent labs were a CBC with a differential on February 24. This showed a white count of 4.5, hemoglobin 8, hematocrit 26 and a platelet count of 158,000. Chemistry profile showed a sodium of 134, potassium 5.1, chloride 104, CO2 of 20, BUN of 36, creatinine 1.45 and a glucose of 306. Liver function tests were normal to low. Protein and albumin were acceptable. Her most recent CEA level was on February 24 and this was 1.9. IMPRESSION: 1. 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 2. Diabetes mellitus. 3. Hypothyroidism. 4. Hypercholesterolemia. 5. Chronic kidney disease stage III. 6. History of pulmonary embolism December 2015. PLAN: The patient is being admitted to undergo a laparoscopic descending or sigmoid colostomy. 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 She is to continue chemotherapy, but this has been on hold due to the fistula. A formal bowel preparation was not ordered. She will remain on clear liquids the day before surgery. I have asked her to take preoperative antibiotics with neomycin and Flagyl. She will receive preoperative antibiotics in the holding area. The patient was counseled for the diverting colostomy to include indications for the procedure, risks and possible benefits. She has had several major abdominal procedures and so is certainly likely to have some intra-abdominal adhesions which may make the procedure somewhat more difficult. If we can accomplish this laparoscopically, then it is likely that this will not interfere for a long time with her necessary chemotherapy. On examination in the office, a site was selected in her left upper quadrant for her colostomy. She has a lot of loose skin and fatty tissue in the lower quadrants and I think this makes the area too unstable for placement of the colostomy. She does have a nice area in the left upper quadrant where I believe we would have the best opportunity for secure placement of an ostomy appliance. The patient was counseled regarding the risks of the procedure which include but are not limited to bleeding, infection, scarring, adverse drug reaction, need for further surgery, and injury of internal organs. She desires to proceed with the colostomy to alleviate the fecal drainage from the vagina. I have told her that she will likely still have a small amount of mucus but that this should be much less and much better tolerated. She desires to proceed with the surgery as scheduled.
[~2019-02-27] VITALS: Ht 157.5 cm; Wt 83.4 kg
[~2019-02-27 10:26] MED LIST changes: -HYDR-4571 PO; +LIDOCAINE 1% MDV 20ML VIAL SQ PRN; +LIDOCAINE 2% INJ 100 MG/5 ML SDV (FOR ANES.) As Ordered ONE; +MIDAZOLAM INJ 2 MG/2 ML VIAL (J2250) As Ordered ONE; -NITR-67 PO; +ONDANSETRON 4MG/2ML VIAL (J2405) As Ordered ONE; +PROPOFOL 200 MG/20 ML VIAL As Ordered ONE; +PROPOFOL 500 MG/50 ML VIAL As Ordered ONE; +ROCURONIUM BROMIDE 50 MG/5 ML VIAL As Ordered ONE; +dexameTHASONE 4 MG/ML 1ML VIAL (J1100) As Ordered ONE; +fentaNYL 100 MCG/2 ML INJECTION (J3010) As Ordered ONE
[2019-02-27] MEDS ORDERED: LR 1,000 ML IV ONE (10:45)
[2019-02-27] MEDS ORDERED: ALVIMOPAN 12 MG CAPSULE (ENTEREG) PO ONE (10:45)
[2019-02-27] MEDS ORDERED: cefoTEtan DISODIUM 2 GM in D5W MINI-BAG PLUS 50 ML IV ONE (10:45)
[2019-02-27] MEDS ORDERED: BUPIVACAINE HCL 0.25% 30 ML VIAL As Ordered ONE (11:42)
[2019-02-27] MEDS ORDERED: KETAMINE HCL 200 MG/20 ML VIAL As Ordered ONE (12:44)
[2019-02-27] MEDS ORDERED: GLYCOPYRROLATE INJ 0.2 MG/ML 2 ML VIAL As Ordered ONE (13:22)
[2019-02-27] MEDS ORDERED: ROCURONIUM BROMIDE 50 MG/5 ML VIAL As Ordered ONE (13:56)
[2019-02-27] MEDS ORDERED: SUGAMMADEX SODIUM 500 MG/5 ML VIAL (BRIDION) As Ordered ONE (15:07)
[2019-02-27 15:12] LABS: CLOSTRIDIUM DIFFICILE PCR NEGATIVE (NEGATIVE)
[2019-02-27] MEDS: LR 1,000 ML IV SCH (15:56)
[2019-02-27] MEDS ORDERED: DEXTROSE 50% 50 ML SYRINGE IV PRN (16:00)
[2019-02-27] MEDS ORDERED: GLUCOSE 4 GM CHEW TABLET PO PRN (16:00)
[2019-02-27] MEDS ORDERED: hydrALAZINE INJ 20 MG/ML VIAL As Ordered ONE (16:00)
[2019-02-27] MEDS ORDERED: ONDANSETRON 4MG/2ML VIAL (J2405) IV PRN ×2 (16:00→16:30)
[2019-02-27] MEDS ORDERED: MORPHINE 4 MG/ML 1ML VIAL/SYRINGE (J2270) IV PRN ×2 (16:00)
[2019-02-27] MEDS ORDERED: MOM 30ML SUSPENSION UDC PO PRN (16:00)
[2019-02-27] MEDS ORDERED: GLUCAGON FOR INJ 1 MG VIAL (J1610) SC PRN (16:00)
[2019-02-27] MEDS ORDERED: KETOROLAC 30 MG/ML VIAL (J1885) IV PRN (16:00)
[2019-02-27] MEDS: hydrALAZINE INJ 20 MG/ML VIAL IV SCH ×4 (16:05→16:45)
[2019-02-27] MEDS ORDERED: fentaNYL 100 MCG/2 ML INJECTION (J3010) As Ordered ONE (16:20)
[2019-02-27] MEDS: fentaNYL 100 MCG/2 ML INJECTION (J3010) IV PRN ×2 (16:23→16:28)
[2019-02-27] MEDS ORDERED: LR 1,000 ML IV SCH (16:30)
[2019-02-27] MEDS ORDERED: METOCLOPRAMIDE INJ 10MG/2ML VIAL (J2765) IV PRN (16:30)
[2019-02-27] MEDS ORDERED: PERCOCET 5MG/325MG TAB PO PRN (16:30)
[2019-02-27 17:30] VITALS: BP 138/63
[2019-02-27] MEDS: HumaLOG INSULIN (NovoLOG) PER UNIT SC SCH ×2 (17:30→22:10)
[2019-02-27 18:00] VITALS: BP 139/64
[2019-02-27 19:00] VITALS: BP 133/65
--- NOTE | 2019-02-27 19:12 | RO ---
DATE OF PROCEDURE: 02/27/2019 PREOPERATIVE DIAGNOSIS: Recurrent rectal carcinoma with a rectovaginal fistula. POSTOPERATIVE DIAGNOSIS: Recurrent rectal carcinoma with a rectovaginal fistula. Extensive abdominal adhesions. PROCEDURE PERFORMED: Laparoscopy with lysis of adhesions and mobilization of the descending colon and splenic flexure, and end descending colostomy. SURGEON: Mik Barber MD MERCHANDISING CONSULTANT: ANESTHESIA: General. INDICATIONS FOR THE PROCEDURE: The patient is a 68-year-old woman who had undergone low anterior resection for cancer 15 years ago. She had a recurrence in the rectum about 5 years ago and had a repeat rectal resection. She also had a partial hepatectomy for liver metastasis. More recently she was found to have a recurrence in the rectum but also appears to have several small metastases in the lungs and perhaps along the pelvic sidewall. She received some chemotherapy and developed a definite rectovaginal fistula with extensive passage of stool per vagina. She is now for a diverting colostomy. DESCRIPTION OF PROCEDURE: The patient was brought to the operating room and placed on the table in a supine position. She was placed under general endotracheal anesthesia. A Grant catheter was inserted. The patient's abdomen was prepped and draped in a sterile fashion. The site for her colostomy in the left upper quadrant had been marked in the office the day before surgery. Local anesthesia was achieved at this site, and a small incision was made. A Veress needle was inserted and after a positive hanging drop test, the abdomen was insufflated with carbon dioxide gas. A 5 mm port was placed over 5 mm scope, and this was advanced through the abdominal wall without difficulty. The scope was inserted. The patient was noted to have some extensive filmy adhesions of the omentum to the anterior abdominal wall. Luckily the left abdominal wall was largely spared of any adhesions. It was possible to see the descending colon distally just above the level of the anterior superior iliac spine. A second 5 mm trocar was placed more lateral in the left upper quadrant and using scissors and the Harmonic scalpel, the adhesions in the more medial aspect of the left upper quadrant over to the midline were divided. Hemostasis was ensured. Where the midline was exposed just below the umbilicus, some additional local anesthetic was infiltrated and a small longitudinal incision was made, and a 12 mm port was placed. With these three ports, the patient was then rolled to the right. The distal descending colon was identified. The lateral attachments were divided. Some adhesions of the omentum down in this area were divided as well. Dissection was carried up along the descending colon. This was extended all the way up to the splenic flexure. Distally the medial aspect of the colon was identified. An [place] stapler with a green load was placed across the distal descending colon, closed and fired. After some additional dissection laterally, a second load was placed to complete the transection. The end of the bowel was then grasped and dissection proceeded freeing the bowel from distal to proximal,dividing the lateral and medial attachments. Dissection proceeded up to free the splenic flexure and extend slightly to the distal transverse colon. The bowel appeared to have excellent vascularity. This appeared to give adequate length for a colostomy. Some abundant fatty tissue on the distal end of the bowel was dissected free with care not to affect the feeding vessels of the colon. This dissected fat was grasped with a grasper and the end of the bowel was then also grasped through the ostomy site. The abdomen was then deflated and a disc of skin was excised at the ostomy site. Unfortunately the fibrofatty tissue that had been dissected was released from the grasper. Dissection proceeded to develop the ostomy site. Some of the subcutaneous fat was excised. The anterior fascia was divided longitudinally. The rectus muscle fibers were spread, and the posterior fascia was elevated and divided transversely. Hemostasis was ensured with the cautery. The end of the bowel was delivered through the ostomy site and had excellent length for creation of a stoma. Once the bowel had been delivered, the abdomen was reinflated to only a pressure of 8, and the laparoscope was reinserted. The fragment of dissected fatty tissue was grasped and delivered through the 12 mm port. The abdomen was then deflated and the other ports were removed. Hemostasis had been ensured prior to removal of the trocars. The fascia at the 12 mm port site along the midline was closed with #2-0 Vicryl. The skin incisions were closed with #4-0 Vicryl. These were covered and I then proceeded to mature the ostomy. The staple line was excised and again some abundant fatty tissue was trimmed off the end of the bowel. A short longitudinal slit was made on one side of the bowel to make eversion of the stoma simpler. Four corner sutures of #3-0 Vicryl were then placed to nina the end of the bowel. Additional stitches were placed, suturing the end of the colon to the skin edge. The vascularity appeared excellent. The skin around the stoma was then prepped with Mastisol and the ostomy appliance was trimmed and applied. Once this had been accomplished, the tech applied Steri-Strips to the skin incisions and light dressings were applied. The patient tolerated the procedure well without apparent (dictation cut off). Her Grant catheter was removed in the operating room. She was awakened in the operating room, extubated and moved to the recovery room in stable condition.
[2019-02-27 20:00] VITALS: BP 141/80
[2019-02-27 21:00] VITALS: BP 143/75
[2019-02-27 22:00] VITALS: BP 140/72
[2019-02-27] MEDS: GABAPENTIN 300 MG CAP PO SCH (22:09)
[2019-02-27] MEDS: CARVedilol 6.25 MG TAB PO SCH (22:10)
[2019-02-27] MEDS: ENOXAPARIN 30 MG/0.3 ML SYR (J1650) SC SCH (22:10)
[2019-02-27] MEDS ORDERED: CALCIUM CARBONATE 500 MG CHEW U/D PO ONE (23:00)
[2019-02-28 02:00] VITALS: BP 154/80
[2019-02-28 06:00] VITALS: BP 117/57
[2019-02-28] MEDS: LEVOTHYROXINE 75MCG TABLET (0.075MG) PO SCH (06:00)
[2019-02-28 06:55] LABS: BASO % 0.2 % (0.0-1.0); EOS % 0.2 % (0.0-3.0); HEMATOCRIT 26.2 % (36.0-47.0); HEMOGLOBIN 8.6 g/dl (12.0-15.5); LYMPH # 0.4 10^3/uL (1.5-4.5); LYMPH % 6.4 % (24.0-44.0); MEAN CORPUSCULAR HEMOGLOBIN 30.2 pg (27.0-33.0); MEAN CORPUSCULAR HGB CONC 32.8 g/dl (32.0-36.5); MEAN CORPUSCULAR VOLUME 91.9 fl (80.0-96.0); MONO # 0.5 10^3/uL (0.0-0.8); MONO % 7.2 % (0.0-5.0); NEUTROPHILS # 5.3 10^3/uL (1.8-7.7); NEUTROPHILS % 85.5 % (36.0-66.0); PLATELET COUNT, AUTOMATED 178 10^3/uL (150-450); RED BLOOD COUNT 2.85 10^6/uL (4.00-5.40); WHITE BLOOD COUNT 6.2 10^3/uL (4.0-10.0)
[2019-02-28 07:21] LABS: CALCIUM LEVEL 8.9 MG/DL (8.8-10.2); CREATININE FOR GFR 1.28 MG/DL (0.55-1.30); POTASSIUM SERUM 4.1 MEQ/L (3.5-5.1)
[2019-02-28] MEDS: CARVedilol 6.25 MG TAB PO SCH ×2 (08:08→21:35)
[2019-02-28] MEDS: HumaLOG INSULIN (NovoLOG) PER UNIT SC SCH ×4 (08:08→21:00)
[2019-02-28] MEDS: ATORVASTATIN 10 MG TAB PO SCH (08:08)
--- NOTE | 2019-02-28 09:31 | IPNPDOC ---
Text Note Date of Service The patient was seen on 02/28/19. NOTE No acute events overnight. Tolerating diet. Denies nausea, emesis, or fevers. No complaints of pain, and she already has stool in her ostomy. VSSAF NAD abd - soft, TTP appropriate, incisions c/d/i, ostomy with stool in the bag labs - below A) 68y/o female s/p diverting colostomy POD#1 P) reg diet PO pain control ostomy teaching PPI plan on d/c home once tolerating ostomy Dipesh Fletcher DO A-FIB/CHADSVASC A-FIB History Current/History of A-Fib/PAF?: No VS,Fishbone, I+O VS, Fishbone, I+O Laboratory Tests 02/28/19 06:25 Red Blood Count 2.85 L, Mean Corpuscular Volume 91.9, Mean Corpuscular Hemoglobin 30.2, Mean Corpuscular Hemoglobin Concent 32.8, Red Cell Distribution Width 18.7 H, Neutrophils (%) (Auto) 85.5 H, Lymphocytes (%) (Auto) 6.4 L, Monocytes (%) (Auto) 7.2 H, Eosinophils (%) (Auto) 0.2, Basophils (%) (Auto) 0.2, Neutrophils # (Auto) 5.3, Lymphocytes # (Auto) 0.4 L, Monocytes # (Auto) 0.5, Eosinophils # (Auto) 0.0, Basophils # (Auto) 0.0, Calcium Level 8.9 Vital Signs Date Time Temp Pulse Resp B/P (MAP) Pulse Ox O2 Delivery O2 Flow Rate FiO2 02/28/19 08:08 73 117/57 02/28/19 06:00 98.1 18 99 02/27/19 16:16 2 I&O- Last 24 Hours up to 6 AM 02/28/19 06:00 Intake Total 3300 ml Output Total 445 ml Balance 2855 ml OLI FLETCHER DO February 28, 2019 09:31
[2019-02-28 10:00] VITALS: BP 155/67
[2019-02-28] MEDS: OMEPRAZOLE 20 MG CAP PO SCH ×2 (10:06→21:35)
[2019-02-28] MEDS: LR 1,000 ML IV SCH (10:06)
[2019-02-28 14:00] VITALS: BP 187/79
[2019-02-28] MEDS: ACETAMINOPHEN TAB 650MG DOSE (2X325MG) PO PRN (14:43)
[2019-02-28 18:00] VITALS: BP 173/77
[2019-02-28] MEDS: NORCO, ANEXSIA 5/325MG TABLET (HYDROcodone/ACETAMINOPHEN) PO PRN (18:36)
[2019-02-28] MEDS: ENOXAPARIN 30 MG/0.3 ML SYR (J1650) SC SCH (21:35)
[2019-02-28] MEDS: GABAPENTIN 300 MG CAP PO SCH (21:35)
[2019-02-28 22:00] VITALS: BP 133/60
[2019-03-01 02:00] VITALS: BP 140/69
[2019-03-01 06:00] VITALS: BP 154/74
[2019-03-01] MEDS: NORCO, ANEXSIA 5/325MG TABLET (HYDROcodone/ACETAMINOPHEN) PO PRN ×2 (06:04→12:36)
[2019-03-01] MEDS: LEVOTHYROXINE 75MCG TABLET (0.075MG) PO SCH (06:04)
[2019-03-01] MEDS: ATORVASTATIN 10 MG TAB PO SCH (08:55)
[2019-03-01] MEDS: OMEPRAZOLE 20 MG CAP PO SCH ×2 (08:55→20:58)
[2019-03-01] MEDS: CARVedilol 6.25 MG TAB PO SCH ×2 (08:55→20:59)
[2019-03-01] MEDS: HumaLOG INSULIN (NovoLOG) PER UNIT SC SCH ×4 (08:56→21:00)
--- NOTE | 2019-03-01 09:12 | IPNPDOC ---
Text Note Date of Service The patient was seen on 03/01/19. NOTE No acute events overnight. Tolerating diet. Denies nausea, emesis, or fevers. Pain is controlled, and the ostomy is working. She has been up ambulating in the halls on her own. VSSAF NAD abd - soft, TTP appropriate, incisions c/d/i, ostomy with stool in the bag A) 68y/o female s/p diverting colostomy POD#2 P) reg diet PO pain control ostomy teaching PPI plan on d/c home once tolerating ostomy Dipesh Fletcher DO A-FIB/CHADSVASC A-FIB History Current/History of A-Fib/PAF?: No VS,Fishbone, I+O VS, Fishbone, I+O Vital Signs Date Time Temp Pulse Resp B/P (MAP) Pulse Ox O2 Delivery O2 Flow Rate FiO2 03/01/19 08:55 75 154/74 03/01/19 06:34 16 03/01/19 06:00 97.2 97 02/27/19 16:16 2 I&O- Last 24 Hours up to 6 AM 03/01/19 06:00 Intake Total 2585 ml Output Total 775 ml Balance 1810 ml OLI FLETCHER DO March 01, 2019 09:12
[2019-03-01 10:00] VITALS: BP 162/72
[2019-03-01] MEDS: SIMETHICONE 80 MG CHEW TAB PO PRN ×2 (13:12→20:59)
[2019-03-01 14:00] VITALS: BP 138/63
[2019-03-01] MEDS: ACETAMINOPHEN TAB 650MG DOSE (2X325MG) PO PRN (14:57)
[2019-03-01 18:00] VITALS: BP 164/76
[2019-03-01] MEDS: ENOXAPARIN 30 MG/0.3 ML SYR (J1650) SC SCH (20:58)
[2019-03-01] MEDS: GABAPENTIN 300 MG CAP PO SCH (20:58)
[2019-03-01 22:00] VITALS: BP 147/77
[2019-03-02] MEDS: NORCO, ANEXSIA 5/325MG TABLET (HYDROcodone/ACETAMINOPHEN) PO PRN ×2 (00:14→10:03)
[2019-03-02 02:00] VITALS: BP 138/72
[2019-03-02] MEDS: SIMETHICONE 80 MG CHEW TAB PO PRN ×2 (03:31→10:03)
[2019-03-02] MEDS: ACETAMINOPHEN TAB 650MG DOSE (2X325MG) PO PRN ×2 (03:32→11:48)
[2019-03-02 06:00] VITALS: BP 134/62
[2019-03-02] MEDS: LEVOTHYROXINE 75MCG TABLET (0.075MG) PO SCH (06:05)
[2019-03-02] MEDS ORDERED: HYDR-4571 PO (09:10)
[2019-03-02 10:01] VITALS: BP 134/62
[2019-03-02] MEDS: ATORVASTATIN 10 MG TAB PO SCH (10:01)
[2019-03-02] MEDS: CARVedilol 6.25 MG TAB PO SCH (10:01)
[2019-03-02] MEDS: OMEPRAZOLE 20 MG CAP PO SCH (10:01)
[2019-03-02] MEDS: HumaLOG INSULIN (NovoLOG) PER UNIT SC SCH ×2 (10:04→12:48)
== END 2019-03-02 15:15 | disposition home or self-care (01) | DRG 330 ==
LOC: M OR 10:26 → M MS5PR 17:15
PROVIDERS: ADMIT Surgery; ATTEND Surgery
PROC: 0DNM4ZZ Release Descending Colon, Percutaneous Endoscopic Approach (ICD-10-PCS; 2019-02-27)
PROC: 0D1M4Z4 Bypass Descending Colon to Cutaneous, Percutaneous Endoscopic Approach (ICD-10-PCS; principal; 2019-02-27 12:00)
DX: N82.3 Fistula of vagina to large intestine (principal); C20 Malignant neoplasm of rectum; C78.7 Secondary malignant neoplasm of liver and intrahepatic bile duct; C78.00 Secondary malignant neoplasm of unspecified lung; I12.9 Hypertensive chronic kidney disease with stage 1 through stage 4 chronic kidney disease, or unspecified chronic kidney disease; E11.9 Type 2 diabetes mellitus without complications; N18.3 Chronic kidney disease, stage 3 (moderate); Z88.6 Allergy status to analgesic agent; Z88.8 Allergy status to other drugs, medicaments and biological substances; E03.9 Hypothyroidism, unspecified; Z87.891 Personal history of nicotine dependence; Z86.711 Personal history of pulmonary embolism

== ENCOUNTER → 2019-04-22 | Outpatient (REF) | payer MEDICARE ==
[~2019-04-22] MED LIST changes: -CALC12502 PO; +CALC500T60 PO; +HYDR-4571 PO; -LIDOCAINE 1% MDV 20ML VIAL SQ PRN; -LIDOCAINE 2% INJ 100 MG/5 ML SDV (FOR ANES.) As Ordered ONE; +METH5TA PO; -MIDAZOLAM INJ 2 MG/2 ML VIAL (J2250) As Ordered ONE; +NITR-67 PO; -ONDANSETRON 4MG/2ML VIAL (J2405) As Ordered ONE; -PROPOFOL 200 MG/20 ML VIAL As Ordered ONE; -PROPOFOL 500 MG/50 ML VIAL As Ordered ONE; -ROCURONIUM BROMIDE 50 MG/5 ML VIAL As Ordered ONE; -dexameTHASONE 4 MG/ML 1ML VIAL (J1100) As Ordered ONE; -fentaNYL 100 MCG/2 ML INJECTION (J3010) As Ordered ONE
[2019-04-22 11:41] LABS: BASO % 0.6 % (0.0-1.0); EOS # 0.3 10^3/uL (0.0-0.50); EOS % 6.5 % (0.0-3.0); HEMATOCRIT 32.6 % (36.0-47.0); HEMOGLOBIN 10.5 g/dl (12.0-15.5); LYMPH # 0.6 10^3/uL (1.5-4.5); LYMPH % 10.8 % (24.0-44.0); MEAN CORPUSCULAR HEMOGLOBIN 30.3 pg (27.0-33.0); MEAN CORPUSCULAR HGB CONC 32.2 g/dl (32.0-36.5); MEAN CORPUSCULAR VOLUME 94.2 fl (80.0-96.0); MONO # 0.5 10^3/uL (0.0-0.8); MONO % 9.4 % (0.0-5.0); NEUTROPHILS # 3.7 10^3/uL (1.8-7.7); NEUTROPHILS % 72.3 % (36.0-66.0); PLATELET COUNT, AUTOMATED 191 10^3/uL (150-450); RED BLOOD COUNT 3.46 10^6/uL (4.00-5.40); WHITE BLOOD COUNT 5.1 10^3/uL (4.0-10.0)
[2019-04-22 12:07] LABS: ALBUMIN 3.3 GM/DL (3.2-5.2); BILIRUBIN,TOTAL 0.8 MG/DL (0.2-1.0); CALCIUM LEVEL 8.7 MG/DL (8.8-10.2); CHOLESTEROL RISK RATIO 3.87 (<5); CREATININE FOR GFR 1.25 MG/DL (0.55-1.30); FREE T4 1.91 NG/DL (0.76-1.46); GLOMERULAR FILTRATION RATE 45.2 (>45); POTASSIUM SERUM 4.8 MEQ/L (3.5-5.1); THYROID STIMULATING HORMONE 0.202 uIU/ML (0.358-3.740); TOTAL PROTEIN 6.6 GM/DL (6.4-8.2)
[2019-04-22 12:19] LABS: HEMOGLOBIN A1c 8.7 %
== END ==
LOC: M SFHCCLAY 08:26
PROVIDERS: ATTEND Nurse Practitioner Family
DX: E11.8 Type 2 diabetes mellitus with unspecified complications (principal); E03.9 Hypothyroidism, unspecified; C18.9 Malignant neoplasm of colon, unspecified; Z93.3 Colostomy status
CPT/HCPCS: 80053; 80061; 83036; 84439; 84443; 85025; G0463

== ENCOUNTER 2019-07-18 15:45 | Inpatient (IN) | payer MEDICARE ==
[~2019-07-18] VITALS: Ht 157.5 cm; Wt 98.1 kg
[~2019-07-18 15:45] MED LIST changes: +MAGN200T PO
[2019-07-18] MEDS ORDERED: MAGN400T2 PO (16:30)
[2019-07-18] MEDS ORDERED: LEVO100T5 PO (16:30)
[2019-07-18] MEDS ORDERED: HYDROMORPHONE HCL 0.5 MG/ 0.5 ML SYRINGE (J1170 PER 1) IV ONE ×2 (16:30→20:00)
[2019-07-18] MEDS ORDERED: NITR100C2 PO (16:30)
[2019-07-18] MEDS ORDERED: NS 1,000 ML IV SCH (16:30)
[2019-07-18 17:17] LABS: BASO % 0.3 % (0.0-1.0); EOS # 0.2 10^3/uL (0.0-0.5); EOS % 3.5 % (0.0-3.0); HEMATOCRIT 29.2 % (36.0-47.0); HEMOGLOBIN 9.4 g/dl (12.0-15.5); LYMPH # 0.7 10^3/uL (1.5-5.0); LYMPH % 10.3 % (24.0-44.0); MEAN CORPUSCULAR HEMOGLOBIN 28.1 pg (27.0-33.0); MEAN CORPUSCULAR HGB CONC 32.2 g/dl (32.0-36.5); MEAN CORPUSCULAR VOLUME 87.4 fl (80.0-96.0); MONO # 0.4 10^3/uL (0.0-0.8); MONO % 6.4 % (0.0-5.0); NEUTROPHILS # 5.2 10^3/uL (1.5-8.5); NEUTROPHILS % 78.9 % (36.0-66.0); PLATELET COUNT, AUTOMATED 140 10^3/uL (150-450); RED BLOOD COUNT 3.34 10^6/uL (4.00-5.40); WHITE BLOOD COUNT 6.5 10^3/uL (4.0-10.0)
[2019-07-18 17:52] LABS: BLOOD UREA NITROGEN 22 MG/DL (7-18); CALCIUM LEVEL 7.7 MG/DL (8.8-10.2); CARBON DIOXIDE LEVEL 25 MEQ/L (21-32); CHLORIDE LEVEL 104 MEQ/L (98-107); CREATININE FOR GFR 1.23 MG/DL (0.55-1.30); GLOMERULAR FILTRATION RATE 46.1 (>45); GLUCOSE, FASTING 119 MG/DL (70-100); MAGNESIUM LEVEL 1.2 MG/DL (1.8-2.4); POTASSIUM SERUM 5.1 MEQ/L (3.5-5.1); SODIUM LEVEL 136 MEQ/L (136-145)
--- NOTE | 2019-07-18 18:36 | REPVR ---
PROCEDURE INFORMATION: Exam: US Duplex Left Lower Extremity Veins, Limited Exam date and time: 07/18/2019 6:00 PM Clinical history: 68 years old, female; Injury or trauma; Fall; Initial encounter; Fracture, traumatic; Additional info: R/O left leg dvt TECHNIQUE: Imaging protocol: Real-time Duplex ultrasound of the Left Lower Extremity with 2-D aguila scale, color Doppler flow and spectral waveform analysis with image documentation. Limited exam focused on the left lower extremity veins. COMPARISON: US Duplex, Ext LOWER veins, bilat 07/24/2016 12:13 PM FINDINGS: Left deep veins: Hypoechoic, nonocclusive thrombus in the common femoral vein. The proximal profunda femoral and femoral veins are patent without thrombus. Suboptimal visualization of the popliteal vein. Left superficial veins: Heterogeneously hypoechoic, occlusive thrombus in the greater saphenous vein to the level of the midthigh. Soft tissues: Unremarkable. IMPRESSION: 1. Hypoechoic, nonocclusive thrombus in the common femoral vein. 2. Heterogeneously hypoechoic, occlusive thrombus in the greater saphenous vein to the level of the midthigh. Electronically signed by: Bill Marie On 07/18/2019 18:36:31 PM
--- NOTE | 2019-07-18 19:06 | REPVR ---
PROCEDURE INFORMATION: Exam: XR Left Elbow Exam date and time: 07/18/2019 5:28 PM Clinical history: 68 years old, female; Injury or trauma; Fall; Initial encounter; Swelling (edema); Elbow; Left TECHNIQUE: Imaging protocol: XR Left elbow. Views: 3 or more views. COMPARISON: No relevant prior studies available. FINDINGS: Bones/joints: No radiographic evidence of acute fracture or dislocation. Alignment anatomic. Joint spaces preserved. No definite effusion. Soft tissues: Grossly unremarkable. IMPRESSION: No acute radiographic findings. Electronically signed by: Bill Marie On 07/18/2019 19:06:34 PM
--- NOTE | 2019-07-18 19:11 | REPVR ---
PROCEDURE INFORMATION: Exam: XR Left Hip with Pelvis when Performed Exam date and time: 07/18/2019 5:28 PM Clinical history: 68 years old, female; Hip pain; Left hip; Additional info: Include pelvis trauma TECHNIQUE: Imaging protocol: XR Left hip with pelvis when performed. Views: 2 or 3 views. COMPARISON: CR Hip,AP,LAT to include Pelvis LEFT 01/22/2019 4:33 PM FINDINGS: Bones/joints: Osteopenia. Mildly impacted subcapital fracture of the left femoral neck. No dislocation. Soft tissues: Mild soft tissue swelling. Vasculature: Dense vascular calcifications. IMPRESSION: 1. Left femoral neck fracture, as described above. 2. Additional findings, as above. Electronically signed by: Bill Marie On 07/18/2019 19:10:42 PM
--- NOTE | 2019-07-18 19:24 | REPVR ---
PROCEDURE INFORMATION: Exam: XR Left Femur Exam date and time: 07/18/2019 5:28 PM Clinical history: 68 years old, female; Injury or trauma; Fall; Initial encounter; Swelling (edema); Hip; Left TECHNIQUE: Imaging protocol: XR Left femur. Views: 2 views. COMPARISON: PT PET/CT Skull/mid thigh 02/11/2019 4:04 PM FINDINGS: Bones/joints: No radiographic evidence of acute fracture or dislocation. Alignment anatomic. Joint spaces preserved. Soft tissues: Grossly unremarkable. Vasculature: Dense vascular calcifications. IMPRESSION: No acute radiographic findings. Electronically signed by: Bill Marie On 07/18/2019 19:23:29 PM
[2019-07-18 20:11] LABS: INR 1.23; PROTHROMBIN TIME 15.2 SECONDS (11.8-14.0)
[2019-07-18] MEDS ORDERED: D5W/0.9% SODIUM CHLORIDE 1,000 ML IV SCH (20:54)
[2019-07-18] MEDS ORDERED: HumaLOG INSULIN (NovoLOG) PER UNIT SC SCH (21:00)
--- NOTE | 2019-07-18 21:02 | HPEPDOC ---
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 She tripped over an uneven area of cement and fell down on her left side and hit her head. She denied losing consciousness after hitting her head. She was unable to get up on her own without assistance.Currently, her left groin pain is about 7 out of 10 in severity. Prior to the fall she denied having chest pain, denied having palpitations, denied having dizziness, denied having nausea, denied having vomiting, denied having diarrhea, denied having fevers, denied having chills, denied having runny nose, or cough. At her baseline She has an unsteady gait due to left leg weakness and uses a cane. Per discussion with the ED provider imaging showed a fracture of the left femoral neck and A left common femoral vein DVT; Ortho has been consulted and requested vascular consult to determine if the patient also needs to have an IVC filter placed. 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 She has previously had bowel resection with subsequent colostomy placement, developed a rectovaginal fistula & lower GI bleed after one of the rounds of chemotherapy and had a partial hepatectomy. She is currently on chemotherapy & radiation, is enrolled in a study on pembrolizumab/cetuximab, but will switch to a new study in a few weeks with Tucatinib/Traztuzumab. -PE diagnosed 2 years ago -Unsteady gait - CKD III -Ureteral stricture Status post Ureteral stent implantation - Chronic hypertension - Insulin-dependent type 2 diabetes mellitus -Pembrolizumab related Thyroditis /Hypothyroidism -Cetuximab related Hypomagnesemia -Status post tonsillectomy -She denies previously having coronary artery disease, having an AK, or having a stroke SOCIAL HISTORY: Former smoker She takes alcohol occasionally FAMILY HISTORY: Coronary artery disease. Diabetes Cancer (breast & colon) ALLERGIES: Please see below. HOME MEDICATIONS: Please see below. PHYSICAL EXAMINATION: VITAL SIGNS: Please see below. GENERAL APPEARANCE: Well-nourished, well-developed, not in apparent distress HEENT: Normocephalic, atraumatic, mucous membranes moist and pink CARDIOVASCULAR: Regular rate and rhythm. No murmurs, rubs or gallops LUNGS: Clear to auscultation bilaterally on room air ABDOMEN: Positive bowel sounds. Abdomen soft and nontender on palpation MUSCULOSKELETAL: Range of motion intact in all extremities except left lower extremity where range of motion is limited by pain INTEGUMENT: Has generalized pallor and spider angiomata NEUROLOGICAL: Cranial nerves II-12 are grossly intact. Speech is not dysarthric PSYCHIATRIC: Alert and oriented to person, place and time, able to understand and follow commands LABORATORY DATA: See below. IMAGING: X-ray of the pelvis and hips " IMPRESSION: 1. Left femoral neck fracture, as described above. 2. Additional findings, as above. " CT of the head final report is pending X-ray of the left elbow. "IMPRESSION: No acute radiographic findings." Venous duplex of the left lower extremity "IMPRESSION: 1. Hypoechoic, nonocclusive thrombus in the common femoral vein. 2. Heterogeneously hypoechoic, occlusive thrombus in the greater saphenous vein to the level of the midthigh." CT of pelvis. "IMPRESSION: 1. Left femoral neck fracture, as described above. 2. Circumferential rectal wall thickening and perirectal edema with a chronic appearing abscess versus walled off perforation in the left perirectal soft tissues, decreased in size since the prior study. 3. Additional findings, as above. " Chest x-ray final report is pending MICROBIOLOGY: Please see below. ASSESSMENT: Ms. Yang is a 68 year old female with past medical history of metastatic rectal adenocarcinoma, history of PE 2 years ago, unsteady gait, CKD 3, chronic hypertension, insulin-dependent type 2 diabetes, pembrolizumab related hypothyroidism, and cetuximab related hypomagnesemia who is admitted for management of a left femoral neck fracture and LLE DVT after having a mechanical fall. PLAN: 1. Left Femoral Neck Fx 2/2 Mechanical Fall At her baseline the patient has an unsteady gait and walks with a cane She now has Osteoporosis by definition because of fragility fracture; CT of the pelvis also noted that she has Osteopenia Plan: Admit to PCU/ /fall precautions/ follow-up report from CT of the head / NPO after midnight w D5NS / Ortho consult / pain control w Morphine the day time team may consider a Pain management consult because she is also chronically on methadone / physical therapy consult to determine if she needs inpatient rehabilitation versus placement in an assisted living facility /she will need work-up to r/o secondary causes of Osteoporosis which can be done on an out pt prior to selecting medications 2. DVT affecting the left femoral and great saphenous veins Her systolic blood pressure is not low & heart rate is not high therefore it is unlikely that she has a new massive OR submassive PE as well Plan: will hold off ordering CTA chest to avoid excess contrast pending discussion w vascular surgery for IVC filter placement / able to start anticoagulation right now because of plans for hip surgery 3.Accelerated HTN Maximum blood pressure 233/103. EKG showed normal sinus rhythm with a heart rate of 79, and no acute ST or T- wave changes Plan: Resume carvedilol and add labetalol 5 mg IV when necessary for blood pressure greater than 160/100 / telemetry/follow-up troponin / follow-up renal function in the morning 4.Multifactorial Bicytopenia Normocytic anemia with thrombocytopenia. Plan: Follow-up CBC, iron studies & LFTs 5.IDDM Plan: f/u accuchecks & A1C / her home med is Tresiba 30 units QHS tonight I will give her 15 units of Levemir (which is approximately equal to 15 units of Tresiba) / post operatively the day time team may resume her home dose of Tresiba if available / sliding scale insulin / hypoglycemia protocol 6.Metastatatic Rectal Cancer Plan: Resume Zofran, gabapentin, loperamide, methadone, and prochlorperazine / f/w with and at [facility] [place] as scheduled on an outpatient basis 7.Rectovaginal Fistula She was started on a 5 day course of Macrobid on July 14 by after complaining of dysuria . This was also visualized on CT of the pelvis Plan: The daytime team may consider surgical consult to drain the fluid collection / Monitor vitals 8. Pembrolizumab related thyroiditis/hypothyroidism Plan: Continue with Synthroid 9. Cetuximab related Hypomagnesemia. Plan: replete magnesium as needed and follow up electrolytes 10. Stage III. CKD Creatinine and GFR at baseline Plan: Follow up BMP/avoid nephrotoxins 11. Obesity BMI 37 complicates care Plan: Follow-up with PCP for ROSS questionnaire 12. Perioperative Eval Revised Cardiac Index to asses risk of MACE from surgery = 1 points = class II risk Plan: since her RCRI score is 1 and she is older than 65 we will check a pro- BNP; if it is >300 then an EKG (which was already done in the ED) and troponin should be measured / if her BP remains elevated once her pain is under control she may need up titration of her BP meds DVT prophylaxis with SCDs because of anemia and thrombocytopenia pending vascular surgery eval Disposition pending clinical course Vital Signs Vital Signs Date Time Temp Pulse Resp B/P (MAP) Pulse Ox O2 Delivery O2 Flow Rate FiO2 07/18/19 20:18 20 07/18/19 17:59 98.4 76 220/90 98 07/18/19 16:05 Room Air Laboratory Data Labs 24H Laboratory Tests 2 07/18/19 16:35: Prothrombin Time 15.2H, Prothromb Time International Ratio 1.23 07/18/19 16:37: Immature Granulocyte % (Auto) 0.6, White Blood Count 6.5, Red Blood Count 3.34L, Hemoglobin 9.4L, Hematocrit 29.2L, Mean Corpuscular Volume 87.4, Mean Corpuscular Hemoglobin 28.1, Mean Corpuscular Hemoglobin Concent 32.2, Red Cell Distribution Width 16.0H, Platelet Count 140L, Neutrophils (%) (Auto) 78.9H, Lymphocytes (%) (Auto) 10.3L, Monocytes (%) (Auto) 6.4H, Eosinophils (%) (Auto) 3.5H, Basophils (%) (Auto) 0.3, Neutrophils # (Auto) 5.2, Lymphocytes # (Auto) 0.7L, Monocytes # (Auto) 0.4, Eosinophils # (Auto) 0.2, Basophils # (Auto) 0.0, Nucleated Red Blood Cells % (auto) 0.0, Anion Gap 7L, Glomerular Filtration Rate 46.1, Blood Urea Nitrogen 22H, Creatinine 1.23, Sodium Level 136, Potassium Level 5.1, Chloride Level 104, Carbon Dioxide Level 25, Calcium Level 7.7L, Magnesium Level 1.2L CBC/BMP Laboratory Tests 07/18/19 16:37 Red Blood Count 3.34 L, Mean Corpuscular Volume 87.4, Mean Corpuscular Hemoglobin 28.1, Mean Corpuscular Hemoglobin Concent 32.2, Red Cell Distribution Width 16.0 H, Neutrophils (%) (Auto) 78.9 H, Lymphocytes (%) (Auto) 10.3 L, Monocytes (%) (Auto) 6.4 H, Eosinophils (%) (Auto) 3.5 H, Basophils (%) (Auto) 0.3, Neutrophils # (Auto) 5.2, Lymphocytes # (Auto) 0.7 L, Monocytes # (Auto) 0.4, Eosinophils # (Auto) 0.2, Basophils # (Auto) 0.0, Calcium Level 7.7 L Home Medications Scheduled Atorvastatin Calcium (Atorvastatin Calcium) 10 Mg Tab, 10 MG PO DAILY Carvedilol (Carvedilol) 6.25 Mg Tablet, 6.25 MG PO BID Gabapentin (Gabapentin) 300 Mg Cap, 600 MG PO QHS Insulin Degludec (Tresiba Flextouch U-100) 100 Unit/Ml Inj, 30 UNIT SC QHS Levothyroxine Sodium (Levothyroxine Sodium) 100 Mcg Tablet, 100 MCG PO DAILY Magnesium Oxide (Magnesium Oxide) 400 Mg Tablet, 400 MG PO BID Methadone HCl (Methadone HCl) 5 Mg Tablet, 1 TAB PO Q12H for pain Nitrofurantoin Monohyd/M-Cryst (Nitrofurantoin [place]-Mcr 100 mg) 100 Mg Capsule, 100 MG PO BID PRESCRIBED 07/15/19 X 5 DAYS Scheduled PRN Loperamide HCl (Loperamide) 2 Mg Capsule, 4 MG PO for DIARRHEA Ondansetron HCl (Ondansetron HCl) 8 Mg Tablet, 8 MG PO Q6H PRN for NAUSEA OR VOMITING Prochlorperazine Maleate (Prochlorperazine Maleate) 10 Mg Tablet, 10 MG PO Q8H PRN for NAUSEA OR VOMITING Allergies Coded Allergies: aspirin (Verified Allergy, Severe, ANAPHYLAXIS, 01/07/19) Contrast Media (Verified Allergy, Unknown, itching for days, 11/19/18) atenolol (Verified Adverse Reaction, Intermediate, NAUSEA AND DIZZINESS, 01/07/19) lisinopril (Verified Adverse Reaction, Intermediate, VERY DIZZY, 01/07/19) A-FIB/CHADSVASC A-FIB History Current/History of A-Fib/PAF?: No Current PO Anticoag Therapy: RITA Boss MD Jul 18, 2019 21:02
--- NOTE | 2019-07-18 21:02 | REPVR ---
PROCEDURE INFORMATION: Exam: CT Pelvis without contrast; Skeletal Exam date and time: 07/18/2019 8:44 PM Clinical history: 68 years old, female; Injury or trauma; Fall; Initial encounter; Fracture of pelvis & hip; Left; Not specified; Neck of femur; Additional info: Eval L femoral neck FX TECHNIQUE: Imaging protocol: Computed tomography images of the pelvis without contrast. Exam focused on the skeletal structures. Axial, coronal and sagittal reformatted images were created and reviewed. Radiation optimization: All CT scans at this facility use at least one of these dose optimization techniques: automated exposure control; mA and/or kV adjustment per patient size (includes targeted exams where dose is matched to clinical indication); or iterative reconstruction. COMPARISON: CT ABD PELVIS W/O CONTRAST 01/25/2019 4:58 PM FINDINGS: Stomach and bowel: Circumferential rectal wall thickening and perirectal edema. Chronic appearing abscess versus walled off perforation in the left perirectal soft tissues, decreased in size since the prior study. Left lower quadrant ostomy. Vasculature: Mild atherosclerotic disease. Bones/joints: Osteopenia. Mildly comminuted, displaced and impacted subcapital fracture of the left femoral neck with apex anterior angulation at the fracture site. No dislocation. Mild bilateral hip joint osteoarthrosis. Small left hip joint lipohemarthrosis. Degenerative changes of the lower lumbar spine, sacroiliac joints and pubic symphysis. Soft tissues: Unremarkable. IMPRESSION: 1. Left femoral neck fracture, as described above. 2. Circumferential rectal wall thickening and perirectal edema with a chronic appearing abscess versus walled off perforation in the left perirectal soft tissues, decreased in size since the prior study. 3. Additional findings, as above. Electronically signed by: Bill Marie On 07/18/2019 21:02:09 PM
[2019-07-18] MEDS ORDERED: MAG SULF 1GM/100ML (MAG RUN) 1 GM in IV 1 EA IV ONE (21:15)
[2019-07-18 21:58] LABS: ALBUMIN 3.4 GM/DL (3.2-5.2); ALT/SGPT 17 U/L (12-78); BILIRUBIN,DIRECT 0.2 MG/DL (0.0-0.2); BILIRUBIN,TOTAL 0.7 MG/DL (0.2-1.0); NT-PRO BNP 378 PG/ML (<125); TOTAL PROTEIN 6.6 GM/DL (6.4-8.2)
[2019-07-18] MEDS: MORPHINE 4 MG/ML 1ML VIAL/SYRINGE (J2270) IV PRN (23:05)
[2019-07-18 23:40] LABS: TROPONIN I < 0.02 NG/ML (< 0.10)
[2019-07-18] MEDS ORDERED: LOPERAMIDE 2 MG CAP PO PRN (23:45)
[2019-07-18] MEDS ORDERED: METHADONE 5 MG TAB (S0109) PO SCH (23:45)
[2019-07-18] MEDS ORDERED: LEVEMIR (INSULIN DETEMIR) 1 UNITS/0.01ML SC ONE (23:45)
[2019-07-18] MEDS ORDERED: PROCHLORPERAZINE 5 MG TAB (S0183) PO PRN (23:45)
[2019-07-19] VITALS (7 sets, daily range): BP systolic 107–172; BP diastolic 55–92
[2019-07-19] MEDS ORDERED: LEVEMIR (INSULIN DETEMIR) 1 UNITS/0.01ML SC ONE ×2 (00:15→21:00)
[2019-07-19] MEDS ORDERED: diphenhydrAMINE 25 MG CAP PO ONE ×2 (01:00→10:15)
[2019-07-19] MEDS ORDERED: ONDANSETRON 4 MG TAB (S0181) PO PRN (01:00)
[2019-07-19] MEDS ORDERED: LABETALOL HCL 100 MG/20 ML VIAL IV PRN (01:00)
[2019-07-19] MEDS: METHADONE 5 MG TAB (S0109) PO PRN ×2 (01:19→20:56)
[2019-07-19] MEDS: GABAPENTIN 300 MG CAP PO SCH ×2 (01:19→20:48)
[2019-07-19] MEDS: CARVedilol 6.25 MG TAB PO SCH ×3 (01:20→20:48)
[2019-07-19] MEDS: MORPHINE 4 MG/ML 1ML VIAL/SYRINGE (J2270) IV PRN ×4 (02:19→19:34)
[2019-07-19 05:22] LABS: HEMATOCRIT 28.9 % (36.0-47.0); HEMOGLOBIN 9.3 g/dl (12.0-15.5); MEAN CORPUSCULAR HEMOGLOBIN 28.1 pg (27.0-33.0); MEAN CORPUSCULAR HGB CONC 32.2 g/dl (32.0-36.5); MEAN CORPUSCULAR VOLUME 87.3 fl (80.0-96.0); PLATELET COUNT, AUTOMATED 130 10^3/uL (150-450); RED BLOOD COUNT 3.31 10^6/uL (4.00-5.40); WHITE BLOOD COUNT 5.7 10^3/uL (4.0-10.0)
[2019-07-19 05:36] LABS: INR 1.26; PROTHROMBIN TIME 15.5 SECONDS (11.8-14.0)
[2019-07-19 05:52] LABS: BLOOD UREA NITROGEN 21 MG/DL (7-18); CALCIUM LEVEL 7.6 MG/DL (8.8-10.2); CARBON DIOXIDE LEVEL 25 MEQ/L (21-32); CHLORIDE LEVEL 106 MEQ/L (98-107); CREATININE FOR GFR 1.38 MG/DL (0.55-1.30); FERRITIN 241 NG/ML (8-252); GLOMERULAR FILTRATION RATE 40.4 (>45); GLUCOSE, FASTING 181 MG/DL (70-100); IRON (FE) 30 UG/DL (50-170); MAGNESIUM LEVEL 1.4 MG/DL (1.8-2.4); PERCENT SATURATION 12.9 % (13.2-45.0); SODIUM LEVEL 138 MEQ/L (136-145); TOTAL IRON BINDING CAPACITY 232 UG/DL (250-450); TROPONIN I < 0.02 NG/ML (< 0.10)
[2019-07-19 06:00] LABS: HEMOGLOBIN A1c 8.6 %
[2019-07-19] MEDS ORDERED: ceFAZolin SOD 2 GM in IV 1 EA IV ONE ×2 (06:00→10:00)
[2019-07-19] MEDS: HumaLOG INSULIN (NovoLOG) PER UNIT SC SCH ×3 (06:00→17:33)
[2019-07-19] MEDS: LEVOTHYROXINE 100MCG TABLET (0.1MG) PO SCH (06:58)
[2019-07-19] MEDS ORDERED: HumaLOG INSULIN (NovoLOG) PER UNIT SC SCH (07:30)
--- NOTE | 2019-07-19 07:57 | REP ---
CT of the brain without IV contrast: There is no subdural or epidural hematoma. There is no edema, mass effect or midline shift. There is no subarachnoid or intraparenchymal hemorrhage. A punctate calcification is again identified in the right frontal lobe, unchanged. There are bilateral basal ganglia calcifications, unchanged. There is mild diffuse cortical atrophy, unchanged. The visualized paranasal sinuses and mastoid air cells are clear. Impression: There is no subdural or other acute intracranial hemorrhage. Mild diffuse cortical atrophy. No change from the prior study. Electronically Signed by Kt Razo MD 07/19/2019 07:48 A
--- NOTE | 2019-07-19 08:16 | ECGEPIP ---
[facility] - ED Test Date: 2019-07-18 Pat Name: ARBEN QUINTERO Department: Room: [place] [address] Gender: Female Collaborating Supervising Physician: JEFFERY : [id number] Requested By: Imelda Reyes PA-C Order Number: [id number] Reading MD: Shelia Fuentes Measurements Intervals Holliday Rate: 79 P: 40 OR: 142 QRS: 20 QRSD: 84 T: 43 QT: 350 QTc: 401 Interpretive Statements SINUS RHYTHM similar to prior EKG 10/21/18 Electronically Signed on 07-19-2019 8:15:44 EDT by Shelia Fuentes
--- NOTE | 2019-07-19 08:19 | REP ---
A PA and lateral chest: Comparison is 2018. The lung keith are clear. Cardiac size is normal. The grace, mediastinum, skeletal structures are unremarkable. There is a left subclavian [id number] catheter with the tip in the superior vena cava, unchanged. Impression: There are no acute cardiopulmonary findings. Electronically Signed by Kt Razo MD 07/19/2019 08:11 A
[2019-07-19] MEDS ORDERED: DEXTROSE 50% 50 ML SYRINGE IV PRN (08:30)
[2019-07-19] MEDS ORDERED: GLUCAGON FOR INJ 1 MG VIAL (J1610) SC PRN (08:30)
[2019-07-19] MEDS ORDERED: GLUCOSE 4 GM CHEW TABLET PO PRN (08:30)
[2019-07-19] MEDS: NS 1,000 ML IV SCH (08:44)
[2019-07-19] MEDS: MAG SULF 1GM/100ML (MAG RUN) 1 GM in IV 1 EA IV SCH ×4 (08:47→12:57)
--- NOTE | 2019-07-19 12:45 | IPNPDOC ---
Date Seen The patient was seen on 07/19/19. Progress Note This is a 68yo patient with LLE DVT and need to be off anticoagulation for ortho repair traumatic hip fracture. They plan to do surgery tomorrow afternoon, thus I d/w Dr Ragsdale and she will be happy to place IVC filter tomorrow morning in IR since I will be out of town for 2 weeks. I have discussed this plan with Dr Richard, Dr Ragsdale, Dr Mortensen and the AUTOMOTIVE [employer]CONDITIONING MECH[employer]IC. Ok for pt to eat today and on going preoperative optimization in progress with Dr Richard. Plan for IVC tomorrow. VS, I&O, 24H, Fishbone Vital Signs/I&O Vital Signs Date Time Temp Pulse Resp B/P (MAP) Pulse Ox O2 Delivery O2 Flow Rate FiO2 07/19/19 12:00 97.7 75 20 107/55 (72) 96 07/19/19 00:48 Room Air I&O- Last 24 Hours up to 6 AM 07/19/19 09:00 Intake Total 900 ml Output Total 400 ml Balance 500 ml Laboratory Data 24H LABS Laboratory Tests 2 07/18/19 16:35: Prothrombin Time 15.2H, Prothromb Time International Ratio 1.23 07/18/19 16:37: Immature Granulocyte % (Auto) 0.6, White Blood Count 6.5, Red Blood Count 3.34L, Hemoglobin 9.4L, Hematocrit 29.2L, Mean Corpuscular Volume 87.4, Mean Corpuscular Hemoglobin 28.1, Mean Corpuscular Hemoglobin Concent 32.2, Red Cell Distribution Width 16.0H, Platelet Count 140L, Neutrophils (%) (Auto) 78.9H, Lymphocytes (%) (Auto) 10.3L, Monocytes (%) (Auto) 6.4H, Eosinophils (%) (Auto) 3.5H, Basophils (%) (Auto) 0.3, Neutrophils # (Auto) 5.2, Lymphocytes # (Auto) 0.7L, Monocytes # (Auto) 0.4, Eosinophils # (Auto) 0.2, Basophils # (Auto) 0.0, Nucleated Red Blood Cells % (auto) 0.0, Anion Gap 7L, Glomerular Filtration Rate 46.1, Calcium Level 7.7L, Magnesium Level 1.2L, Aspartate Amino Transf (AST/SGOT) 18, Alanine Aminotransferase (ALT/SGPT) 17, Alkaline Phosphatase 111, Total Bilirubin 0.7, Direct Bilirubin 0.2, Troponin I < 0.02, [id number]-Jzd-A-Type Natriuretic Peptide 378H, Total Protein 6.6, Albumin 3.4, Albumin/Globulin Ratio 1.06 07/18/19 23:41: Troponin I < 0.02 07/19/19 01:25: Bedside Glucose (Misc Panel) 235H 07/19/19 05:12: Nucleated Red Blood Cells % (auto) 0.0, Prothrombin Time 15.5H, Prothromb Time International Ratio 1.26, Anion Gap 7L, Glomerular Filtration Rate 40.4L, Estimated Mean Plasma Glucose 200H, Hemoglobin A1c 8.6, Blood Urea Nitrogen 21H, Creatinine 1.38H, Sodium Level 138, Potassium Level 5.0, Chloride Level 106, Carbon Dioxide Level 25, Calcium Level 7.6L, Magnesium Level 1.4L, Iron Level 30L, Total Iron Binding Capacity 232L, Transferrin % Saturation 12.9L, Ferritin 241, Troponin I < 0.02 07/19/19 12:02: Bedside Glucose (Misc Panel) 201H CBC/BMP Laboratory Tests 07/18/19 16:37 Red Blood Count 3.34 L, Mean Corpuscular Volume 87.4, Mean Corpuscular Hemoglobin 28.1, Mean Corpuscular Hemoglobin Concent 32.2, Red Cell Distribution Width 16.0 H, Neutrophils (%) (Auto) 78.9 H, Lymphocytes (%) (Auto) 10.3 L, Monocytes (%) (Auto) 6.4 H, Eosinophils (%) (Auto) 3.5 H, Basophils (%) (Auto) 0.3, Neutrophils # (Auto) 5.2, Lymphocytes # (Auto) 0.7 L, Monocytes # (Auto) 0.4, Eosinophils # (Auto) 0.2, Basophils # (Auto) 0.0 07/19/19 05:12 Red Blood Count 3.31 L, Mean Corpuscular Volume 87.3, Mean Corpuscular Hemoglobin 28.1, Mean Corpuscular Hemoglobin Concent 32.2, Red Cell Distribution Width 16.2 H, Calcium Level 7.6 L DAREN TEJEDA MD Jul 19, 2019 12:45
--- NOTE | 2019-07-19 15:57 | IPNPDOC ---
Subjective Date Seen The patient was seen on 07/19/19. Subjective Chief Complaint/HPI Mrs. Yang's primary complaint this afternoon is itching. She reports that she feels she may be sensitive to the magnesium infusions as she often itches when she is receiving them in [place] as well. She is requesting 50mg of Benadryl as this tends to help her better. She reports that her hip hurts when she moves or tries to lift it, but if she is staying still it doesn't bother her too bad. She denies any chest pain, change in dyspnea, or yellowing of the skin. Constitutional: Denies: Chills, Fever ENT: Denies: Head Aches, Epistaxis Skin: Reports: Itching; Denies: Jaundice Pulmonary: Denies: Dyspnea, Cough Cardiovascular: Reports: Edema (in the LLE); Denies: Chest Pain, Palpitations Gastrointestinal: Denies: Nausea, Vomiting, Abdominal Pain Genitourinary: Denies: Dysuria Musculoskeletal: Reports: Leg Pain (L hip) Psych: Reports: Mood Normal; Denies: Anxiety Objective Physical Examination General Exam: Positive: Alert, Cooperative (talking with her granddaughter, and great-grand son when I entered the room), No Acute Distress Eye Exam: Positive: PERRLA, Conjunctiva & lids normal; Negative: Sclera icteric ENT Exam: Positive: Mucous membr. moist/pink, Nares Patent Neck Exam: Positive: Supple; Negative: Lymphadenopathy Chest Exam: Positive: Clear to auscultation, Normal air movement Heart Exam: Positive: Rate Normal, Regular Rhythm, Normal S1, Normal S2; Negative: Murmurs, Rubs Abdomen Exam: Positive: Normal bowel sounds, Soft, Other (colostomy in the central abdomen, no leakage or bleeding); Negative: Tenderness, Hepatospenomegaly (somewhat limited exam based on body habitus) Extremity Exam: Positive: Edema (trace in the R mid-tibial area, 2+ on the L), Normal pulses, Tenderness (on palpation over the L hip) Neuro Exam: Positive: Normal Speech Psych Exam: Positive: Mental status NL, Mood NL, Oriented x 3 Assessment /Plan Problems (1) Fracture of femoral neck, left, closed Status: Acute Discussed With: Nurse, Manager Therapy, Patient Problem Text: She will need her L hip repaired. This is anticipated for tomorrow, but several things have to happen before we can verify she is optimized. None the less, I believe that we can have her optimized for surgery by tomorrow morning. Appreciate Orthopedic's and Dr. Mortensen's help. (2) Left leg DVT Status: Acute Discussed With: Nurse, Manager Therapy, Patient Problem Text: One of those things is placement of an IVC to protect her as much as possible from developing a PE while her L hip is manipulated surgically. Dr. Bond has personally communicated with Dr. Ragsdale of interventional radiology who said she would be willing to place the filter early tomorrow morning and before the anticipated orthopedic procedure. Appreciate her help with this. (3) Hypomagnesemia Discussed With: Nurse, Patient Problem Specific Plan: Repeat Labs Problem Text: The patient has cetuximab induced hypomagnesemia. I have replea marcelino her with 4gm of magnesium today and am checking repeat levels later this afternoon. The patient reports that she is no longer on cetuximab because of the side effects, so she anticipates that she will be able to "keep" the Mg++ we give her. Once her Mg++ level is reasonably repleated (>1.7), she should be optimized on this issue. (4) Accelerated hypertension Response to Treatment: Improving Discussed With: Nurse, Patient Problem Specific Plan: Monitor Clinically Problem Text: She had very elevated BPs when she arrived. Pain could have played a factor, but I'm not sure it was the whole story. Regardless, she has received her Coreg and has labatolol prn for elevated BP. She does also have pain control available. Her blood pressures are much better controlled now. I believe that she is optimized for surgery on this regimen. (5) Diabetes mellitus, type 2 Status: Chronic Problem Text: She is usually on Tresiba 24 units qhs. I will order half of this this evening as she will be NPO after midnight. 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 If this remains stable, then she should tolerate surgery just fine. If she drops, then I will transfuse her as I anticipate she will lose some blood during the artur-operative period. If we can keep her Hb >8.5 she should be optimized for surgery on this issue. (7) CKD (chronic kidney disease), stage III Status: Chronic Response to Treatment: Stable Problem Text: Her baseline creatinine is in the 1.2-1.3 range and she appears to be currently at her baseline. 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 It will not be useful to check her TSH in this time of acute physiologic stress. We will continue her on her usual repletion for now. If she starts having symptoms of acute hypothyroidism then we may consider empirically increasing her dose 10-20% to help her deal with the physiologic stress. 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 She has had a partial hepatectomy. Plan/VTE VTE Prophylaxis Ordered?: Yes (MARCELINO/SCDs (sequential on the R leg only)) VTE Exclusion Mechanical Proph: N/A:VTE Prophy Ordered VTE Exclusion Pharmacological: Thrombocytopenia (and anticipated surgery) Plan Regarding surgical optimization: * there are significant risks as noted in the H&P, many of these are non- modifiable. She needs to be willing to accept these non-modifiable risks in order to proceed with surgery. * If we are able to, * keep her Hb >8.5 * keep her Mg++ greater than or equal to 1.7 * then she is optimized for the IR procedure * If she gets the IVC filter placed, then she is optimized for the orthopedic procedure VS, I&O, 24H, Fishbone Vital Signs/I&O Vital Signs Date Time Temp Pulse Resp B/P (MAP) Pulse Ox O2 Delivery O2 Flow Rate FiO2 07/19/19 15:33 16 07/19/19 12:00 97.7 75 107/55 (72) 96 07/19/19 00:48 Room Air I&O- Last 24 Hours up to 6 AM 07/19/19 06:00 Intake Total 900 ml Output Total 400 ml Balance 500 ml Laboratory Data 24H LABS Laboratory Tests 2 07/18/19 16:35: Prothrombin Time 15.2H, Prothromb Time International Ratio 1.23 07/18/19 16:37: Immature Granulocyte % (Auto) 0.6, White Blood Count 6.5, Red Blood Count 3.34L, Hemoglobin 9.4L, Hematocrit 29.2L, Mean Corpuscular Volume 87.4, Mean Corpuscular Hemoglobin 28.1, Mean Corpuscular Hemoglobin Concent 32.2, Red Cell Distribution Width 16.0H, Platelet Count 140L, Neutrophils (%) (Auto) 78.9H, Lymphocytes (%) (Auto) 10.3L, Monocytes (%) (Auto) 6.4H, Eosinophils (%) (Auto) 3.5H, Basophils (%) (Auto) 0.3, Neutrophils # (Auto) 5.2, Lymphocytes # (Auto) 0.7L, Monocytes # (Auto) 0.4, Eosinophils # (Auto) 0.2, Basophils # (Auto) 0.0, Nucleated Red Blood Cells % (auto) 0.0, Anion Gap 7L, Glomerular Filtration Rate 46.1, Calcium Level 7.7L, Magnesium Level 1.2L, Aspartate Amino Transf (AST/SGOT) 18, Alanine Aminotransferase (ALT/SGPT) 17, Alkaline Phosphatase 111, Total Bilirubin 0.7, Direct Bilirubin 0.2, Troponin I < 0.02, KP-Yma-C-Type Natriuretic Peptide 378H, Total Protein 6.6, Albumin 3.4, Albumin/Globulin Ratio 1.06 07/18/19 23:41: Troponin I < 0.02 07/19/19 01:25: Bedside Glucose (Misc Panel) 235H 07/19/19 05:12: Nucleated Red Blood Cells % (auto) 0.0, Prothrombin Time 15.5H, Prothromb Time International Ratio 1.26, Anion Gap 7L, Glomerular Filtration Rate 40.4L, Estimated Mean Plasma Glucose 200H, Hemoglobin A1c 8.6, Blood Urea Nitrogen 21H, Creatinine 1.38H, Sodium Level 138, Potassium Level 5.0, Chloride Level 106, Carbon Dioxide Level 25, Calcium Level 7.6L, Magnesium Level 1.4L, Iron Level 30L, Total Iron Binding Capacity 232L, Transferrin % Saturation 12.9L, Ferritin 241, Troponin I < 0.02 07/19/19 12:02: Bedside Glucose (Misc Panel) 201H CBC/BMP Laboratory Tests 07/18/19 16:37 Red Blood Count 3.34 L, Mean Corpuscular Volume 87.4, Mean Corpuscular Hemoglobin 28.1, Mean Corpuscular Hemoglobin Concent 32.2, Red Cell Distribution Width 16.0 H, Neutrophils (%) (Auto) 78.9 H, Lymphocytes (%) (Auto) 10.3 L, Monocytes (%) (Auto) 6.4 H, Eosinophils (%) (Auto) 3.5 H, Basophils (%) (Auto) 0.3, Neutrophils # (Auto) 5.2, Lymphocytes # (Auto) 0.7 L, Monocytes # (Auto) 0.4, Eosinophils # (Auto) 0.2, Basophils # (Auto) 0.0 07/19/19 05:12 Red Blood Count 3.31 L, Mean Corpuscular Volume 87.3, Mean Corpuscular Hemoglobin 28.1, Mean Corpuscular Hemoglobin Concent 32.2, Red Cell Distribution Width 16.2 H, Calcium Level 7.6 L Royce Richard MD Jul 19, 2019 15:57
[2019-07-19 17:00] LABS: HEMATOCRIT 29.6 % (36.0-47.0); HEMOGLOBIN 9.3 g/dl (12.0-15.5)
[2019-07-19] MEDS: diphenhydrAMINE INJ 50MG/ML VIAL (J1200) IV PRN ×2 (17:33→22:35)
[2019-07-19] MEDS: NYSTATIN 100,000 UNITS/GM TOPICAL PWD 15 GM TOP SCH (20:48)
[2019-07-19] MEDS ORDERED: ENTER DRUG NAME HERE (PATIENT'S OWN MED) SC SCH (21:00)
[2019-07-19] MEDS ORDERED: CALCIUM CARBONATE 500 MG CHEW U/D PO PRN (22:30)
[2019-07-20] VITALS (15 sets, daily range): BP systolic 114–158; BP diastolic 58–80
[2019-07-20] MEDS: MORPHINE 4 MG/ML 1ML VIAL/SYRINGE (J2270) IV PRN ×6 (00:01→22:18)
[2019-07-20] MEDS: HumaLOG INSULIN (NovoLOG) PER UNIT SC SCH ×4 (00:02→18:00)
[2019-07-20] MEDS: LEVOTHYROXINE 100MCG TABLET (0.1MG) PO SCH (05:42)
[2019-07-20] MEDS: diphenhydrAMINE INJ 50MG/ML VIAL (J1200) IV PRN ×2 (05:48→12:08)
[2019-07-20] MEDS ORDERED: ceFAZolin SOD 2 GM in IV 1 EA IV ONE (06:00)
[2019-07-20 06:06] LABS: BASO % 0.3 % (0.0-1.0); EOS # 0.4 10^3/uL (0.0-0.5); EOS % 5.5 % (0.0-3.0); HEMATOCRIT 28.8 % (36.0-47.0); HEMOGLOBIN 9.1 g/dl (12.0-15.5); LYMPH # 1.1 10^3/uL (1.5-5.0); LYMPH % 14.6 % (24.0-44.0); MEAN CORPUSCULAR HEMOGLOBIN 27.8 pg (27.0-33.0); MEAN CORPUSCULAR HGB CONC 31.6 g/dl (32.0-36.5); MEAN CORPUSCULAR VOLUME 88.1 fl (80.0-96.0); MONO # 0.7 10^3/uL (0.0-0.8); MONO % 9.2 % (0.0-5.0); NEUTROPHILS # 5.1 10^3/uL (1.5-8.5); PLATELET COUNT, AUTOMATED 134 10^3/uL (150-450); RED BLOOD COUNT 3.27 10^6/uL (4.00-5.40); WHITE BLOOD COUNT 7.2 10^3/uL (4.0-10.0)
[2019-07-20 06:18] LABS: INR 1.37; PROTHROMBIN TIME 16.6 SECONDS (11.8-14.0)
[2019-07-20 06:36] LABS: CALCIUM LEVEL 8.2 MG/DL (8.8-10.2); CREATININE FOR GFR 1.56 MG/DL (0.55-1.30); MAGNESIUM LEVEL 1.7 MG/DL (1.8-2.4); POTASSIUM SERUM 4.9 MEQ/L (3.5-5.1); TOTAL PROTEIN 6.6 GM/DL (6.4-8.2)
[2019-07-20] MEDS ORDERED: LIDOCAINE 1% MDV 20ML VIAL As Ordered ONE (06:49)
[2019-07-20] MEDS ORDERED: PROHANCE 279.3MG/ML 15ML VIAL (A9576) As Ordered ONE (06:57)
[2019-07-20] MEDS ORDERED: MIDAZOLAM INJ 2 MG/2 ML VIAL (J2250) As Ordered ONE ×2 (07:11→19:47)
[2019-07-20] MEDS ORDERED: fentaNYL 100 MCG/2 ML INJECTION (J3010) As Ordered ONE ×3 (07:11→21:15)
--- NOTE | 2019-07-20 07:19 | IRMSE ---
[facility] IR Moderate Sedation Eval. Date and Time Date: Jul 20, 2019 Time: 07:18 ASA Classification ASA Classification: III-Severe systemic dis. Mallampati Score: II NPO: Yes Obstructive Sleep Apnea: No Interval Plan: moderate sedation ELIZA ARMENDARIZ MD Jul 20, 2019 07:19
--- NOTE | 2019-07-20 08:19 | POST-OPPD ---
Postoperative Procedure Note Date Of Procedure: Jul 20, 2019 Time Of Procedure: 08:18 PREOPERATIVE DIAGNOSIS: LLE DVT. CI to OAC POSTOPERATIVE DIAGNOSIS: LLE DVT. CI to OAC FINDINGS: patent right CFV PROCEDURE: IVC filter placed. see full report under images tab SURGEON: isa ANESTHESIA: mod sed ESTIMATED BLOOD LOSS: < 5 ml COMPLICATIONS: none POSTOPERATIVE CONDITION: stable ELIZA ARMENDARIZ MD Jul 20, 2019 08:19
--- NOTE | 2019-07-20 08:32 | CR ---
DATE OF CONSULTATION: INDICATION: Left hip fracture. HISTORY OF PRESENT ILLNESS: Elisabeth is a 68-year-old female with an unfortunate medical history of recurrent colon cancer, status post colectomy, and a recent failure of chemotherapy, who suffered a mechanical fall on 07/18/2019 and was unable to bear weight. She was brought in to the hospitalist service on the evening of 07/18/2019, and she was seen on 07/19. The emergency room physician's food trades assistants diagnosed her with an acute deep vein thrombosis (DVT) in the left lower extremity, which was the same side as the fracture, due to complaints of pain and swelling. For the patient's full past medical history, past surgical history, medications, allergies, social history and review of systems, please see the admitting hospitalist history and physical. PHYSICAL EXAMINATION: Physical examination reveals a large female in no distress. She is alert and oriented times three. Neurologic: Appropriate mood and affect. Pulmonary: Nonlabored breathing. Abdomen: Patient has a colostomy. Musculoskeletal: The patient's leg was externally rotated, not significantly shortened. IMAGING: AP pelvis and two views of the left hip revealed what looked like a minimally displaced left femoral neck fracture. The lateral hip view was poor quality due to soft tissue shadow. I therefore requested a CT scan of the pelvis to further evaluate the femoral neck fracture as well as to rule out any obvious signs of metastasis. The CT scan revealed, unfortunately, moderate displacement on sagittal and axial imaging consistent with more of a type III Garden classification femoral neck fracture. No obvious evidence of metastasis. ASSESSMENT/PLAN: Elisabeth is a 68-year-old female with a moderately displaced left femoral neck fracture. I was on the phone with the hospitalist and vascular surgery team on 07/19/2019. The patient had an indication for an IVC filter. No one was available on 07/19. At the time of this dictation on 07/20/2019, the patient is currently in interventional radiology getting her IVC filter. She has been medically cleared per the medical team to proceed with her surgery. The on-call orthopedic physician will proceed with surgery.
[2019-07-20] MEDS: NS 1,000 ML IV SCH ×2 (09:42→11:58)
[2019-07-20] MEDS: NYSTATIN 100,000 UNITS/GM TOPICAL PWD 15 GM TOP SCH ×2 (09:43→22:10)
[2019-07-20] MEDS: CARVedilol 6.25 MG TAB PO SCH ×2 (09:45→22:19)
--- NOTE | 2019-07-20 11:12 | IPNPDOC ---
Subjective Date Seen The patient was seen on 07/20/19. Subjective Chief Complaint/HPI comfortable at this time. General: Denies: Chills, Malaise ENT: Denies: Head Aches, Dysphagia Pulmonary: Denies: Dyspnea, Cough Cardiovascular: Denies: Chest Pain, Orthopnea Gastrointestinal: Denies: Nausea, Abdominal Pain Genitourinary: Denies: Dysuria Hematologic: Denies: Bruising, Purpura Endocrine: Denies: Polydipsia Musculoskeletal: Reports: Other Symptoms (left hip pain) Neurological: Denies: Weakness, Numbness Psych: Reports: Mood Normal Objective Physical Examination General Exam: Positive: Alert, Cooperative (talking with her granddaughter, and great-grand son when I entered the room), No Acute Distress Eye Exam: Positive: PERRLA, Conjunctiva & lids normal; Negative: Sclera icteric ENT Exam: Positive: Mucous membr. moist/pink, Nares Patent Neck Exam: Positive: Supple; Negative: Lymphadenopathy Chest Exam: Positive: Clear to auscultation, Normal air movement Heart Exam: Positive: Rate Normal, Regular Rhythm, Normal S1, Normal S2; Negative: Murmurs, Rubs Abdomen Exam: Positive: Normal bowel sounds, Soft, Other (colostomy in the central abdomen, no leakage or bleeding); Negative: Tenderness, Hepatospenomegaly (somewhat limited exam based on body habitus) Extremity Exam: Positive: Edema (trace in the R mid-tibial area, 2+ on the L), Normal pulses, Tenderness (on palpation over the L hip) Skin Exam: Positive: Nl turgor and temperature Neuro Exam: Positive: Normal Speech Psych Exam: Positive: Mental status NL, Mood NL, Oriented x 3 Assessment /Plan Problems (1) Fracture of femoral neck, left, closed Status: Acute Discussed With: Nurse, Tab Cutting Machine Operator, Patient Problem Text: 07/20 now s/p placement of IVC filter so she will go to OR today for ORIF. Should be able to start DVT treatment tomorrow, 24 hours post op if OK with Ortho. She will need her L hip repaired. This is anticipated for tomorrow, but several things have to happen before we can verify she is optimized. None the less, I believe that we can have her optimized for surgery by tomorrow morning. Appreciate Orthopedic's and Dr. Mortensen's help. (2) Left leg DVT Status: Acute Discussed With: Nurse, Tab Cutting Machine Operator, Patient Problem Text: 07/[address] One of those things is placement of an IVC to protect her as much as possible from developing a PE while her L hip is manipulated surgically. Dr. Bond has personally communicated with Dr. Ragsdale of interventional radiology who said she would be willing to place the filter early tomorrow morning and before the anticipated orthopedic procedure. Appreciate her help with this. (3) Hypomagnesemia Discussed With: Nurse, Patient Problem Specific Plan: Repeat Labs Problem Text: The patient has cetuximab induced hypomagnesemia. I have repleated her with 4gm of magnesium today and am checking repeat levels later this afternoon. The patient reports that she is no longer on cetuximab because of the side effects, so she anticipates that she will be able to "keep" the Mg++ we give her. Once her Mg++ level is reasonably repleated (>1.7), she should be optimized on this issue. (4) Accelerated hypertension Response to Treatment: Improving Discussed With: Nurse, Patient Problem Specific Plan: Monitor Clinically Problem Text: 07/20 Pressure now well controlled. She had very elevated BPs when she arrived. Pain could have played a factor, but I'm not sure it was the whole story. Regardless, she has received her Coreg and has labatolol prn for elevated BP. She does also have pain control available. Her blood pressures are much better controlled now. I believe that she is optimized for surgery on this regimen. (5) Diabetes mellitus, type 2 Status: Chronic Problem Text: She is usually on Tresiba 24 units qhs. I will order half of this this evening as she will be NPO after midnight. 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 If this remains stable, then she should tolerate surgery just fine. If she drops, then I will transfuse her as I anticipate she will lose some blood during the artur-operative period. If we can keep her Hb >8.5 she should be optimized for surgery on this issue. (7) CKD (chronic kidney disease), stage III Status: Chronic Response to Treatment: Stable Problem Text: Creatinine is a bit higher today. Could benefit from some fluids. Her baseline creatinine is in the 1.2-1.3 range and she appears to be currently at her baseline. 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 It will not be useful to check her TSH in this time of acute physiologic stress. We will continue her on her usual repletion for now. If she starts having symptoms of acute hypothyroidism then we may consider empirically increasing her dose 10-20% to help her deal with the physiologic stress. 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 She has had a partial hepatectomy. Plan/VTE VTE Prophylaxis Ordered?: Yes (MARCELINO/SCDs (sequential on the R leg only)) VTE Exclusion Mechanical Proph: N/A:VTE Prophy Ordered VTE Exclusion Pharmacological: Thrombocytopenia (and anticipated surgery) VS, I&O, 24H, Fishbone Vital Signs/I&O Vital Signs Date Time Temp Pulse Resp B/P (MAP) Pulse Ox O2 Delivery O2 Flow Rate FiO2 07/20/19 10:33 97.2 76 18 138/65 (89) 98 07/20/19 08:10 2 07/19/19 00:48 Room Air I&O- Last 24 Hours up to 6 AM 07/20/19 06:00 Intake Total 1424 ml Output Total 200 ml Balance 1224 ml Laboratory Data 24H LABS Laboratory Tests 2 07/19/19 12:02: Bedside Glucose (Misc Panel) 201H 07/19/19 16:34: Bedside Glucose (Misc Panel) 152H 07/19/19 16:36: Magnesium Level 2.3 07/19/19 20:46: Bedside Glucose (Misc Panel) 279H 07/19/19 23:51: Bedside Glucose (Misc Panel) 249H 07/20/19 05:40: Immature Granulocyte % (Auto) 0.4, White Blood Count 7.2, Red Blood Count 3.27L, Hemoglobin 9.1L, Hematocrit 28.8L, Mean Corpuscular Volume 88.1, Mean Corpuscular Hemoglobin 27.8, Mean Corpuscular Hemoglobin Concent 31.6L, Red Cell Distribution Width 16.6H, Platelet Count 134L, Neutrophils (%) (Auto) 70.0H, Lymphocytes (%) (Auto) 14.6L, Monocytes (%) (Auto) 9.2H, Eosinophils (%) (Auto) 5.5H, Basophils (%) (Auto) 0.3, Neutrophils # (Auto) 5.1, Lymphocytes # (Auto) 1.1L, Monocytes # (Auto) 0.7, Eosinophils # (Auto) 0.4, Basophils # (Auto) 0.0, Nucleated Red Blood Cells % (auto) 0.0, Prothrombin Time 16.6H, Prothromb Time International Ratio 1.37, Anion Gap 5L, Glomerular Filtration Rate 35.0L, Blood Urea Nitrogen 26H, Creatinine 1.56H, Sodium Level 136, Potassium Level 4.9, Chloride Level 105, Carbon Dioxide Level 26, Calcium Level 8.2L, Aspartate Amino Transf (AST/SGOT) 9, Alanine Aminotransferase (ALT/SGPT) 16, Total Creatine Kinase 57, Alkaline Phosphatase 104, Total Bilirubin 1.0, Total Protein 6.6, Albumin 3.0L, Magnesium Level 1.7L, Albumin/Globulin Ratio 0.83L CBC/BMP Laboratory Tests 07/19/19 16:36 07/20/19 05:40 Red Blood Count 3.27 L, Mean Corpuscular Volume 88.1, Mean Corpuscular Hemoglobin 27.8, Mean Corpuscular Hemoglobin Concent 31.6 L, Red Cell Distribution Width 16.6 H, Neutrophils (%) (Auto) 70.0 H, Lymphocytes (%) (Auto) 14.6 L, Monocytes (%) (Auto) 9.2 H, Eosinophils (%) (Auto) 5.5 H, Basophils (%) (Auto) 0.3, Neutrophils # (Auto) 5.1, Lymphocytes # (Auto) 1.1 L, Monocytes # (Auto) 0.7, Eosinophils # (Auto) 0.4, Basophils # (Auto) 0.0, Calcium Level 8.2 L, Aspartate Amino Transf (AST/SGOT) 9, Alanine Aminotransferase (ALT/SGPT) 16, Total Creatine Kinase 57, Alkaline Phosphatase 104, Total Bilirubin 1.0, Total Protein 6.6, Albumin 3.0 L Ray Merchant MD Jul 20, 2019 11:12
[2019-07-20 11:22] LABS: VITAMIN B12 LEVEL 543 PG/ML (247-911)
[2019-07-20 11:23] LABS: FOLATE 11.4 NG/ML (>5.4)
[2019-07-20] MEDS: METHADONE 5 MG TAB (S0109) PO PRN (12:08)
[2019-07-20] MEDS ORDERED: ceFAZolin 1GM INJ (J0690 PER 500MG) As Ordered ONE (14:11)
[2019-07-20] MEDS ORDERED: EPINEPHrine INJ 1 MG/ML 1ML AMP As Ordered ONE (14:12)
--- NOTE | 2019-07-20 14:12 | REP ---
IR IVC filter placement. IR Venogram. Ultrasound of the right groin. IR moderate sedation. Clinical indication : Current left lower extremity DVT. Prior history of PE. Cannot be anticoagulated due to planned orthopedic surgery for fractured left hip. Physician: Dr. Ragsdale. Procedure: The patient was advised of the benefits, risks and alternatives of the procedure and informed consent was obtained. The time-out was performed with verification of the patient's name, MRN, site of procedure and type of procedure to be performed. The patient was positioned in the supine position on the angiographic table. The site was prepped and draped in the usual sterile fashion. Moderate sedation was performed by the physician including the presence of an independent trained observer that assisted in monitoring the patient's level of consciousness and physiologic status. Following administration fentanyl and Versed, the physician spent 45 minutes of continuous face to face time with the patient. Preliminary ultrasound of the right groin was performed and demonstrates a patent right femoral vein which is easily compressible. The right common femoral vein was accessed under ultrasound guidance using a micropuncture kit. An 035 wire was passed into the inferior vena cava and right heart, under fluoroscopy guidance, without difficulty. An inferior vena cava venogram was not performed as the patient has a allergy to contrast and had not been premedicated . A recent CT was reviewed which demonstrates the inflow of the renal veins at L2. No inferior vena cava anomalies, IVC normal in size. The filter sheath was advanced over the wire. A filter was then advanced through the sheath and positioned within the infrarenal inferior vena cava, under fluoroscopy guidance. The filter was then deployed in the usual fashion. Positioning was confirmed fluoroscopically. The sheath was then removed and hemostasis obtained with manual compression. The patient tolerated the procedure well and was returned to PRU in stable condition. EBL: Less than 5 ml. Complications: None. Conclusion: 1. Venogram was not performed due to history of contrast allergy. Review of recent CT demonstrates normal inferior vena cava size, anatomy and inflow of renal veins at L2. 2. Successful deployment of a [place] select filter in the infrarenal inferior vena cava. 3. Patient to return for filter retrieval when it is no longer needed and the patient can be safely and successfully anticoagulated. Patient to follow up in IR clinic in 4 months. Thank you this referral. Electronically Signed by Liz Ragsdale MD 07/20/2019 02:10 P
[2019-07-20] MEDS ORDERED: TRANEXAMIC ACID 100 MG/ML 10ML VIAL As Ordered ONE (15:04)
[2019-07-20] MEDS ORDERED: ceFAZolin 2 GM/D5W 50 ML IV BAG (J0690 PER 500MG) As Ordered ONE (18:44)
[2019-07-20] MEDS ORDERED: LIDOCAINE 2% INJ 100 MG/5 ML SDV (FOR ANES.) As Ordered ONE (19:47)
[2019-07-20] MEDS ORDERED: PROPOFOL 500 MG/50 ML VIAL As Ordered ONE (19:47)
[2019-07-20] MEDS ORDERED: KETAMINE HCL 200 MG/20 ML VIAL As Ordered ONE (19:47)
[2019-07-20] MEDS ORDERED: ONDANSETRON 4MG/2ML VIAL (J2405) As Ordered ONE (19:47)
[2019-07-20] MEDS ORDERED: BUPIVACAINE HCL 0.5% 30 ML VIAL As Ordered ONE (20:04)
[2019-07-20] MEDS ORDERED: PHENYLEPHRINE INJ 10MG/ML VIAL (J2370) As Ordered ONE (20:16)
[2019-07-20] MEDS ORDERED: ePHEDrine SULFATE 25 MG/5 ML(5MG/ML) SYRINGE As Ordered ONE (20:22)
[2019-07-20] MEDS ORDERED: PHENYLephrine HCL 500 MCG/5 ML (100MCG/ML) SYRINGE (J2370) As Ordered ONE (20:22)
[2019-07-20] MEDS: fentaNYL 100 MCG/2 ML INJECTION (J3010) IV PRN ×4 (21:18→21:34)
[2019-07-20] MEDS ORDERED: METOCLOPRAMIDE INJ 10MG/2ML VIAL (J2765) IV PRN (21:30)
[2019-07-20] MEDS ORDERED: LR 1,000 ML IV SCH (21:30)
[2019-07-20] MEDS ORDERED: ONDANSETRON 4MG/2ML VIAL (J2405) IV PRN (21:30)
[2019-07-20] MEDS ORDERED: PERCOCET 5MG/325MG TAB PO PRN (21:30)
[2019-07-20] MEDS: GABAPENTIN 300 MG CAP PO SCH (22:19)
[2019-07-21] VITALS (8 sets, daily range): BP systolic 123–171; BP diastolic 57–82
[2019-07-21] MEDS ORDERED: PERCOCET 5MG/325MG TAB PO ONE
[2019-07-21] MEDS: NS 1,000 ML IV SCH (00:30)
[2019-07-21] MEDS ORDERED: NS 500 ML IV ONE (01:00)
[2019-07-21] MEDS: MORPHINE 4 MG/ML 1ML VIAL/SYRINGE (J2270) IV PRN ×2 (02:02→05:23)
[2019-07-21] MEDS: LEVOTHYROXINE 100MCG TABLET (0.1MG) PO SCH (05:22)
--- NOTE | 2019-07-21 07:50 | REP ---
AP pelvis, portable view: Comparison is 07/18/2019. There has been interval left hip hemiarthroplasty. The the the patient is rotated. No pelvic fractures are identified. A [place] filter is identified in the abdominal vena cava. Electronically Signed by Kt Razo MD 07/21/2019 07:41 A
--- NOTE | 2019-07-21 07:50 | REP ---
Portable left femur four views: There is a left hip hemiarthroplasty. The components tightly applied and in satisfactory position alignment. There are skin leonardo. The Electronically Signed by Kt Razo MD 07/21/2019 07:42 A
[2019-07-21] MEDS: PERCOCET 5MG/325MG TAB PO PRN ×3 (08:02→20:20)
[2019-07-21] MEDS: HumaLOG INSULIN (NovoLOG) PER UNIT SC SCH ×5 (08:03→20:20)
[2019-07-21] MEDS: SENOKOT S TAB PO SCH ×2 (09:18→20:21)
[2019-07-21] MEDS: MOM 30ML SUSPENSION UDC PO SCH (09:18)
[2019-07-21] MEDS: MIRALAX *UNIT DOSE* 17GM PACKET PO SCH (09:18)
[2019-07-21 09:22] LABS: INR 1.39; PROTHROMBIN TIME 16.8 SECONDS (11.8-14.0)
[2019-07-21] MEDS: NYSTATIN 100,000 UNITS/GM TOPICAL PWD 15 GM TOP SCH ×2 (09:22→20:21)
[2019-07-21] MEDS: CARVedilol 6.25 MG TAB PO SCH ×2 (09:22→20:21)
--- NOTE | 2019-07-21 10:43 | IPNPDOC ---
Subjective Date Seen The patient was seen on 07/21/19. Subjective Chief Complaint/HPI reports left hip pain. Constitutional: Denies: Chills ENT: Denies: Head Aches Pulmonary: Denies: Dyspnea, Pleuritic Chest Pain Cardiovascular: Denies: Chest Pain, Palpitations Gastrointestinal: Denies: Nausea, Abdominal Pain Hematologic: Denies: Bruising Neurological: Denies: Weakness Psych: Reports: Mood Normal Objective Physical Examination General Exam: Positive: Alert, Cooperative (talking with her granddaughter, and great-grand son when I entered the room), No Acute Distress Eye Exam: Positive: PERRLA, Conjunctiva & lids normal; Negative: Sclera icteric ENT Exam: Positive: Mucous membr. moist/pink, Nares Patent Neck Exam: Positive: Supple; Negative: Lymphadenopathy Chest Exam: Positive: Clear to auscultation, Normal air movement Heart Exam: Positive: Rate Normal, Regular Rhythm, Normal S1, Normal S2; Negative: Murmurs, Rubs Abdomen Exam: Positive: Normal bowel sounds, Soft, Other (colostomy in the central abdomen, no leakage or bleeding); Negative: Tenderness, Hepatospenomegaly (somewhat limited exam based on body habitus) Extremity Exam: Positive: Edema (trace in the R mid-tibial area, 2+ on the L), Normal pulses, Tenderness (on palpation over the L hip. swelling left leg noted.) Skin Exam: Positive: Nl turgor and temperature Neuro Exam: Positive: Normal Speech Psych Exam: Positive: Mental status NL, Mood NL, Oriented x 3 Assessment /Plan Problems (1) Fracture of femoral neck, left, closed Status: Acute Discussed With: Nurse, Professional Skateboarder, Patient Problem Text: 07/21; slow to progress per PT 07/20 now s/p placement of IVC filter so she will go to OR today for ORIF. Should be able to start DVT treatment tomorrow, 24 hours post op if OK with Ortho. She will need her L hip repaired. This is anticipated for tomorrow, but several things have to happen before we can verify she is optimized. None the less, I believe that we can have her optimized for surgery by tomorrow morning. Appreciate Orthopedic's and Dr. Mortensen's help. (2) Left leg DVT Status: Acute Discussed With: Nurse, Professional Skateboarder, Patient Problem Text: 07/21 will restart anticoagulation therapy when ortho approves. 07/[address]. One of those things is placement of an IVC to protect her as much as possible from developing a PE while her L hip is manipulated surgically. Dr. Bond has personally communicated with Dr. Ragsdale of interventional radiology who said she would be willing to place the filter early tomorrow morning and before the anticipated orthopedic procedure. Appreciate her help with this. (3) Hypomagnesemia Discussed With: Nurse, Patient Problem Specific Plan: Repeat Labs Problem Text: The patient has cetuximab induced hypomagnesemia. I have replea marcelino her with 4gm of magnesium today and am checking repeat levels later this afternoon. The patient reports that she is no longer on cetuximab because of the side effects, so she anticipates that she will be able to "keep" the Mg++ we give her. Once her Mg++ level is reasonably repleated (>1.7), she should be optimized on this issue. (4) Accelerated hypertension Response to Treatment: Improving Discussed With: Nurse, Patient Problem Specific Plan: Monitor Clinically Problem Text: 07/20 Pressure now well controlled. She had very elevated BPs when she arrived. Pain could have played a factor, but I'm not sure it was the whole story. Regardless, she has received her Coreg and has labatolol prn for elevated BP. She does also have pain control available. Her blood pressures are much better controlled now. I believe that she is optimized for surgery on this regimen. (5) Diabetes mellitus, type 2 Status: Chronic Problem Text: She is usually on Tresiba 24 units qhs. I will order half of this this evening as she will be NPO after midnight. (6) Anemia associated with chemotherapy Status: Chronic Response to Treatment: Stable Problem Specific Plan: Repeat Labs Problem Text: 07/21 Hgb staying above 9 so far. Her Hb is stable in the low 9 range. If this remains stable, then she should tolerate surgery just fine. If she drops, then I will transfuse her as I antic ipate she will lose some blood during the artur-operative period. If we can keep her Hb >8.5 she should be optimized for surgery on this issue. (7) CKD (chronic kidney disease), stage III Status: Chronic Response to Treatment: Stable Problem Text: Creatinine is a bit higher today. Could benefit from some fluids. Her baseline creatinine is in the 1.2-1.3 range and she appears to be currently at her baseline. 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 It will not be useful to check her TSH in this time of acute physiologic stress. We will continue her on her usual repletion for now. If she starts having symptoms of acute hypothyroidism then we may consider empirically increasing her dose 10-20% to help her deal with the physiologic stress. 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 She has had a partial hepatectomy. Plan/VTE VTE Prophylaxis Ordered?: Yes (MARCELINO/SCDs (sequential on the R leg only)) VTE Exclusion Mechanical Proph: N/A:VTE Prophy Ordered VTE Exclusion Pharmacological: Thrombocytopenia (and anticipated surgery) VS, I&O, 24H, Fishbone Vital Signs/I&O Vital Signs Date Time Temp Pulse Resp B/P (MAP) Pulse Ox O2 Delivery O2 Flow Rate FiO2 07/21/19 09:22 86 140/60 07/21/19 08:02 18 07/21/19 08:00 98.4 98 07/20/19 23:59 2.0 07/19/19 00:48 Room Air I&O- Last 24 Hours up to 6 AM 07/21/19 06:00 Intake Total 1800 ml Output Total 1100 ml Balance 700 ml Laboratory Data 24H LABS Laboratory Tests 2 07/20/19 11:55: Bedside Glucose (Misc Panel) 129H 07/20/19 11:57: Methicillin-Resist S.aureus DNA PCR NOT DETECTED 07/20/19 17:48: Bedside Glucose (Misc Panel) 93 07/20/19 23:18: Bedside Glucose (Misc Panel) 122H 07/21/19 07:35: Prothrombin Time 16.8H, Prothromb Time International Ratio 1.39 07/21/19 07:54: Bedside Glucose (Misc Panel) 214H Ray Merchant MD Jul 21, 2019 10:43
[2019-07-21 11:09] LABS: HEMATOCRIT 26.4 % (36.0-47.0); HEMOGLOBIN 8.3 g/dl (12.0-15.5); MEAN CORPUSCULAR HEMOGLOBIN 28.2 pg (27.0-33.0); MEAN CORPUSCULAR HGB CONC 31.4 g/dl (32.0-36.5); MEAN CORPUSCULAR VOLUME 89.8 fl (80.0-96.0); PLATELET COUNT, AUTOMATED 156 10^3/uL (150-450); RED BLOOD COUNT 2.94 10^6/uL (4.00-5.40)
[2019-07-21 12:01] LABS: CALCIUM LEVEL 7.8 MG/DL (8.8-10.2); CREATININE FOR GFR 1.46 MG/DL (0.55-1.30); GLOMERULAR FILTRATION RATE 37.8 (>45); MAGNESIUM LEVEL 1.3 MG/DL (1.8-2.4); POTASSIUM SERUM 5.3 MEQ/L (3.5-5.1)
[2019-07-21] MEDS ORDERED: MAG SULF 1GM/100ML (MAG RUN) 1 GM in IV 1 EA IV ONE ×2 (13:00→15:00)
[2019-07-21] MEDS: diphenhydrAMINE INJ 50MG/ML VIAL (J1200) IV PRN (16:59)
[2019-07-21] MEDS ORDERED: RIVAROXABAN 10 MG TAB (XARELTO) PO SCH (18:00)
[2019-07-21] MEDS: MAGNESIUM OXIDE 400 MG TAB (MAG-OX) PO SCH (20:19)
[2019-07-21] MEDS: GABAPENTIN 300 MG CAP PO SCH (20:20)
[2019-07-21] MEDS ORDERED: APIXABAN 5 MG TAB (ELIQUIS) PO SCH ×2 (21:00)
[2019-07-22] VITALS (9 sets, daily range): BP systolic 118–142; BP diastolic 58–84
[2019-07-22] MEDS: LEVOTHYROXINE 100MCG TABLET (0.1MG) PO SCH (05:51)
[2019-07-22] MEDS: PERCOCET 5MG/325MG TAB PO PRN ×4 (05:52→21:16)
[2019-07-22 06:22] LABS: HEMATOCRIT 22.8 % (36.0-47.0); HEMOGLOBIN 7.2 g/dl (12.0-15.5); MEAN CORPUSCULAR HEMOGLOBIN 27.3 pg (27.0-33.0); MEAN CORPUSCULAR HGB CONC 31.6 g/dl (32.0-36.5); MEAN CORPUSCULAR VOLUME 86.4 fl (80.0-96.0); PLATELET COUNT, AUTOMATED 128 10^3/uL (150-450); RED BLOOD COUNT 2.64 10^6/uL (4.00-5.40)
[2019-07-22 06:36] LABS: INR 1.55; PROTHROMBIN TIME 18.3 SECONDS (11.8-14.0)
[2019-07-22 06:48] LABS: CREATININE FOR GFR 1.65 MG/DL (0.55-1.30); GLOMERULAR FILTRATION RATE 32.8 (>45); MAGNESIUM LEVEL 1.6 MG/DL (1.8-2.4); POTASSIUM SERUM 5.3 MEQ/L (3.5-5.1)
[2019-07-22] MEDS ORDERED: NS 1,000 ML IV SCH (08:40)
--- NOTE | 2019-07-22 08:52 | IPNPDOC ---
Subjective Date Seen The patient was seen on 07/22/19. Subjective Chief Complaint/HPI Patient reports pain in hip and some lightheadedness when trying to get up to work with therapy yesterday. Was unable to participate due to the pain and weakness. Pain controlled at rest today. No complaints currently Constitutional: Denies: Chills, Fever Pulmonary: Denies: Dyspnea, Cough Gastrointestinal: Denies: Nausea, Vomiting, Abdominal Pain, Diarrhea, Constipation Objective Physical Examination General Exam: Positive: Alert, No Acute Distress Eye Exam: Negative: Sclera icteric ENT Exam: Positive: Mucous membr. moist/pink, Nares Patent Neck Exam: Negative: Lymphadenopathy Chest Exam: Positive: Clear to auscultation, Normal air movement; Negative: Rales, Rhonchi, Wheezing Heart Exam: Positive: Rate Normal, Regular Rhythm, Normal S1, Normal S2; Negative: Murmurs, Rubs Abdomen Exam: Positive: Normal bowel sounds, Soft, Other (colostomy in the central abdomen, no leakage or bleeding, Catheter with clear yellow urine ); Negative: Tenderness, Hepatospenomegaly (somewhat limited exam based on body habitus) Extremity Exam: Positive: Edema (ESPECIALLY LEFT LEG.), Other (Left hip bandage C/D/I without surrounding swelling or erythema) Skin Exam: Positive: Nl turgor and temperature Neuro Exam: Positive: Normal Speech Psych Exam: Positive: Mental status NL, Mood NL, Oriented x 3 Assessment /Plan Problems (1) Fracture of femoral neck, left, closed Status: Acute Discussed With: Nurse, Strapper, Patient Problem Text: 02/07 s/p hemiarthroplasty 07/20 - Continue PT and pain control 07/20 now s/p placement of IVC filter so she will go to OR today for ORIF. Should be able to start DVT treatment tomorrow, 24 hours post op if OK with Ortho. She will need her L hip repaired. This is anticipated for tomorrow, but several things have to happen before we can verify she is optimized. None the less, I believe that we can have her optimized for surgery by tomorrow morning. Apprec sai Orthopedic's and Dr. Mortensen's help. (2) Left leg DVT Status: Acute Discussed With: Nurse, Strapper, Patient Problem Text: 07/22 - s/p IVC filter 07/20. Eliquis restarted today 07/21 will restart anticoagulation therapy when ortho approves. 07/[address]. One of those things is placement of an IVC to protect her as much as possible from developing a PE while her L hip is manipulated surgically. Dr. Bond has personally communicated with Dr. Ragsdale of interventional radiology who said she would be willing to place the filter early tomorrow morning and before the anticipated orthopedic procedure. Appreciate her help with this. (3) Anemia associated with chemotherapy Status: Chronic Response to Treatment: Stable Problem Specific Plan: Repeat Labs Problem Text: 07/22 - Hgb down to 7.2 - transfuse 2 units PRBC especially since she c/o lightheadedness and weakness with standing yesterday 07/21 Hgb staying above 9 so far. Her Hb is stable in the low 9 range. If this remains stable, then she should tolerate surgery just fine. If she drops, then I will transfuse her as I anticipate she will lose some blood during the artur-operative period. If we can keep her Hb >8.5 she should be optimized for surgery on this issue. (4) Hypomagnesemia Discussed With: Nurse, Patient Problem Specific Plan: Repeat Labs Problem Text: 07/22 - mag level improving on oral mag replacement, but still low so will give 1gm IV today. \\(The patient has cetuximab induced hypomagnesemia) The patient reports that she is no longer on cetuximab because of the side effects, so she anticipates that she will be able to "keep" the Mg++ we give her. (5) Accelerated hypertension Response to Treatment: Improving Discussed With: Nurse, Patient Problem Specific Plan: Monitor Clinically Problem Text: 07/20 Pressure now well controlled. She had very elevated BPs when she arrived. Pain could have played a factor, but I'm not sure it was the whole story. Regardless, she has received her Coreg and has labatolol prn for elevated BP. She does also have pain control available. Her blood pressures are much better controlled now. I believe that she is optimized for surgery on this regimen. (6) Diabetes mellitus, type 2 Status: Chronic Problem Text: She is usually on Tresiba 24 units qhs. 07/22 - Restart a low dose of Levemir for now and cont SSI coverage (7) Acute kidney injury Status: Acute Problem Text: Creatinine up some. Transfusing today. Monitor trend after transfusion (8) CKD (chronic kidney disease), stage III Status: Chronic Response to Treatment: Stable Problem Text: Creatinine is a bit higher today. Could benefit from some fluids. Her baseline creatinine is in the 1.2-1.3 range and she appears to be currently at her baseline. 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 It will not be useful to check her TSH in this time of acute physiologic stress. We will continue her on her usual repletion for now. If she starts having symptoms of acute hypothyroidism then we may consider empirically increasing her dose 10-20% to help her deal with the physiologic stress. 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 She has had a partial hepatectomy. Plan/VTE VTE Prophylaxis Ordered?: Yes (Eliquis) VTE Exclusion Mechanical Proph: N/A:VTE Prophy Ordered VTE Exclusion Pharmacological: Thrombocytopenia (and anticipated surgery) Disposition May need Subacute REhab VS, I&O, 24H, Fishbone Vital Signs/I&O Vital Signs Date Time Temp Pulse Resp B/P (MAP) Pulse Ox O2 Delivery O2 Flow Rate FiO2 07/22/19 05:52 18 07/22/19 04:00 97.9 87 141/65 (90) 96 07/20/19 23:59 2.0 07/19/19 00:48 Room Air I&O- Last 24 Hours up to 6 AM 07/22/19 05:59 Intake Total 1088 ml Output Total 850 ml Balance 238 ml Laboratory Data 24H LABS Laboratory Tests 2 07/21/19 11:16: Anion Gap 8, Glomerular Filtration Rate 37.8L, Blood Urea Nitrogen 25H, Creatinine 1.46H, Sodium Level 136, Potassium Level 5.3H, Chloride Level 105, Carbon Dioxide Level 23, Calcium Level 7.8L, Magnesium Level 1.3L 07/21/19 11:32: Bedside Glucose (Misc Panel) 238H 07/21/19 20:14: Bedside Glucose (Misc Panel) 353H 07/22/19 05:58: Anion Gap 5L, Glomerular Filtration Rate 32.8L, Blood Urea Nitrogen 27H, Creatinine 1.65H, Sodium Level 134L, Potassium Level 5.3H, Chloride Level 104, Carbon Dioxide Level 25, Calcium Level 8.0L, Magnesium Level 1.6L 07/22/19 05:59: Nucleated Red Blood Cells % (auto) 0.0, Prothrombin Time 18.3H, Prothromb Time International Ratio 1.55 CBC/BMP Laboratory Tests 07/21/19 11:16 Calcium Level 7.8 L 07/22/19 05:58 Calcium Level 8.0 L 07/22/19 05:59 Red Blood Count 2.64 L, Mean Corpuscular Volume 86.4, Mean Corpuscular Hemoglobin 27.3, Mean Corpuscular Hemoglobin Concent 31.6 L, Red Cell Distribution Width 16.3 H JAM PEARCE PA-C Jul 22, 2019 08:52 Ray Merchant MD Jul 22, 2019 11:27
[2019-07-22] MEDS: MOM 30ML SUSPENSION UDC PO SCH (09:45)
[2019-07-22] MEDS: MIRALAX *UNIT DOSE* 17GM PACKET PO SCH (09:45)
[2019-07-22] MEDS: HumaLOG INSULIN (NovoLOG) PER UNIT SC SCH ×4 (09:45→21:14)
[2019-07-22] MEDS: CARVedilol 6.25 MG TAB PO SCH ×2 (09:46→21:16)
[2019-07-22] MEDS: SENOKOT S TAB PO SCH ×2 (09:46→21:00)
[2019-07-22] MEDS: MAGNESIUM OXIDE 400 MG TAB (MAG-OX) PO SCH ×2 (09:46→21:15)
[2019-07-22] MEDS: NYSTATIN 100,000 UNITS/GM TOPICAL PWD 15 GM TOP SCH ×2 (09:47→21:17)
[2019-07-22] MEDS ORDERED: SLF 3 ML SYR IV PRN (11:00)
[2019-07-22] MEDS: APIXABAN 5 MG TAB (ELIQUIS) PO SCH ×2 (11:00→21:16)
--- NOTE | 2019-07-22 11:16 | RO ---
DATE OF PROCEDURE: 07/20/2019 PREOPERATIVE DIAGNOSIS: Left femoral neck fracture. POSTOPERATIVE DIAGNOSIS: Left femoral neck fracture. PROCEDURE: Left hip hemiarthroplasty. SURGEON: Dr. Guido Teague SENIOR ENGINEERING TECH: None. ANESTHESIA: Spinal. PREOPERATIVE ANTIBIOTICS: 2 grams Ancef. ESTIMATED BLOOD LOSS: 500. COMPONENTS: 44 head, 6 stem, and -3 neck, De[place]uy [place]. INDICATIONS: This is a 68-year-old female with multiple comorbidities that suffered a femoral neck fracture after a fall at home. It was explained in order to control her pain and get her mobilizing again, it was necessary to replace her femoral head. The patient understood the risks and benefits including, but not limited to, infection, dislocation, and recurrent pain. OPERATIVE DESCRIPTION: The patient was rolled back to the operating room (OR), underwent spinal anesthesia, at which point the patient was placed in the lateral decubitus with the left hip up on a Pierce table, at which point the entire left leg was prepped and draped in the usual fashion, at which point we had a time-out. Once in all agreement over site, site, and surgery, we made an incision overlying the greater trochanter, sharply dissecting through the subcutaneous tissues, paying special attention to coagulate any bleeders. We then incised the iliotibial (IT) band, at which point we encountered the gluteus medius. We removed some outer synovial layer and did a gluteus medius peel at the level of the tip of the greater trochanter and released gluteus minimus, at which point we also released the capsule in one giant sheet. We then did a femoral neck cut about 1 cm from the lesser trochanter, at which point we placed posterior, anterior, and inferior retractors and used the corkscrew to remove the femoral head. We then sized the femoral head at a 43. We trialed a 43 and 44, and we were happy with the 44 fit and good suction . We then proceeded to elevate the femur and place the leg into the side bag. We used the canal finder and the lateralizer and started reaming the central canal sequentially up to 6. We then broached from there on. We felt that 6 had a good fit that was no longer progressing. We then trialed the hip with a -3 offset and felt that it was very well reduced and was stable. We then removed the trial components, irrigated the cup and femur one more time, looking for any remaining bone fragments. We then inserted the 6 stem and impacted the femoral head, reduced it nicely. We then closed the capsule proximally and gluteus minimus with it. We then did bone tunnel repair of the remaining capsule and gluteus medius. That was done with #2 FiberWire. We then closed the IT band with #0 Vicryl, subcutaneous tissue with #2-0 Vicryl, and skin with leonardo. Prior to closure, we irrigated the wound thoroughly. We also gave tranexamic acid (TXA) prior to the start of the procedure, 2 grams. The patient was placed in abduction pillow, awakened, and taken to the postanesthesia care unit (PACU) in stable condition. POSTOPERATIVE PLAN: Patient will be weight bear as tolerated, skip antibiotic prophylaxis. We will defer to medicine and vascular regarding deep venous thrombosis (DVT) prophylaxis or DVT treatment given that she has a left lower extremity DVT and inferior vena cava (IVC) filter was placed earlier today. She will wear the abduction pillow while in bed; otherwise, she will be weight bear as tolerated and will follow lateral hip precautions. ZULY
[2019-07-22] MEDS ORDERED: MAG SULF 1GM/100ML (MAG RUN) 1 GM in IV 1 EA IV ONE (12:00)
[2019-07-22] MEDS: SLF 3 ML SYR IV SCH ×2 (13:45→21:17)
[2019-07-22] MEDS ORDERED: MORPHINE 4 MG/ML 1ML VIAL/SYRINGE (J2270) IV PRN (14:30)
[2019-07-22] MEDS ORDERED: LEVEMIR (INSULIN DETEMIR) 1 UNITS/0.01ML SC SCH (21:00)
[2019-07-22] MEDS: diphenhydrAMINE INJ 50MG/ML VIAL (J1200) IV PRN (21:12)
[2019-07-22] MEDS: GABAPENTIN 300 MG CAP PO SCH (21:15)
[2019-07-23 04:00] VITALS: BP 133/61
[2019-07-23] MEDS: diphenhydrAMINE INJ 50MG/ML VIAL (J1200) IV PRN (04:10)
[2019-07-23 05:44] LABS: HEMATOCRIT 26.7 % (36.0-47.0); HEMOGLOBIN 8.4 g/dl (12.0-15.5); MEAN CORPUSCULAR HEMOGLOBIN 27.2 pg (27.0-33.0); MEAN CORPUSCULAR HGB CONC 31.5 g/dl (32.0-36.5); MEAN CORPUSCULAR VOLUME 86.4 fl (80.0-96.0); PLATELET COUNT, AUTOMATED 145 10^3/uL (150-450); RED BLOOD COUNT 3.09 10^6/uL (4.00-5.40); WHITE BLOOD COUNT 7.4 10^3/uL (4.0-10.0)
[2019-07-23 05:55] LABS: INR 2.26; PROTHROMBIN TIME 24.8 SECONDS (11.8-14.0)
[2019-07-23 06:04] LABS: CALCIUM LEVEL 7.5 MG/DL (8.8-10.2); CREATININE FOR GFR 1.46 MG/DL (0.55-1.30); GLOMERULAR FILTRATION RATE 37.8 (>45); POTASSIUM SERUM 5.4 MEQ/L (3.5-5.1)
[2019-07-23] MEDS: SLF 3 ML SYR IV SCH (07:30)
[2019-07-23] MEDS: LEVOTHYROXINE 100MCG TABLET (0.1MG) PO SCH (07:30)
[2019-07-23 07:48] LABS: MAGNESIUM LEVEL 1.7 MG/DL (1.8-2.4)
[2019-07-23 08:00] VITALS: BP 150/67
[2019-07-23] MEDS: MIRALAX *UNIT DOSE* 17GM PACKET PO SCH (09:00)
[2019-07-23] MEDS: SENOKOT S TAB PO SCH (09:00)
[2019-07-23 09:13] VITALS: BP 150/67
[2019-07-23] MEDS: MAGNESIUM OXIDE 400 MG TAB (MAG-OX) PO SCH (09:13)
[2019-07-23] MEDS: CARVedilol 6.25 MG TAB PO SCH (09:13)
[2019-07-23] MEDS: MOM 30ML SUSPENSION UDC PO SCH (09:13)
[2019-07-23] MEDS: APIXABAN 5 MG TAB (ELIQUIS) PO SCH (09:13)
[2019-07-23] MEDS: HumaLOG INSULIN (NovoLOG) PER UNIT SC SCH (09:14)
[2019-07-23] MEDS: NYSTATIN 100,000 UNITS/GM TOPICAL PWD 15 GM TOP SCH (09:14)
[2019-07-23] MEDS: PERCOCET 5MG/325MG TAB PO PRN (09:15)
[2019-07-23] MEDS ORDERED: NYAM10003 TOP (09:43)
[2019-07-23] MEDS ORDERED: MAG400TA PO (09:43)
[2019-07-23] MEDS ORDERED: SENN-52 PO (09:43)
[2019-07-23] MEDS ORDERED: INSUDET SC ×2 (09:43→13:28)
[2019-07-23] MEDS ORDERED: MOM30SS2 PO (09:43)
[2019-07-23] MEDS ORDERED: ELIQ5TAB PO ×2 (09:43→13:28)
[2019-07-23] MEDS ORDERED: PERCOCET PO (09:43)
[2019-07-23] MEDS ORDERED: NYST1POW9 TOP (13:28)
[2019-07-23] MEDS ORDERED: PERC5TAB12 PO (13:28)
[2019-07-23] MEDS ORDERED: MILKSUS3 PO (13:28)
[2019-07-23] MEDS ORDERED: SENN-50 PO (13:28)
--- NOTE | 2019-07-23 15:30 | DSES ---
DATE OF ADMISSION: 07/18/2019 DATE OF DISCHARGE: 07/23/2019 REASON FOR ADMISSION Ms. Yang suffered a fracture of left femoral neck, was admitted by hospitalist after presenting to the ED with left elbow, left hand and left hip pain as a result of a fall getting into her car. She tripped over an edge. No loss of consciousness. There is no neck pain. No head injury. Left femoral neck fracture was identified, also identified was in new deep venous thrombosis (DVT) in the left leg. Therefore Dr. Ragsdale was consulted and an inferior vena cava (IVC) filter was placed to prevent pulmonary embolus and she was operated on by Dr. Estevan Mortensen with open reduction internal fixation left hip. Just over 24 hours after the surgery she was started on Eliquis 10 mg twice a day which she will need for 7 days and then transition to 5 mg twice a day for maintenance therapy. She was anemic as a result of acute blood loss anemia associated with the injury and chronic kidney disease related to background diagnosis of diabetes. Hemoglobin on presentation was 9.4 and she dropped to 7.2 on the , received a 2 unit transfusion and on the day of discharge to ARU (acute rehabilitation unit) her hemoglobin has improved to 8.4. There was no evidence of GI blood loss. She has some swelling in the left leg as expected with a DVT and surgery. She has significant pain. She says chronic pain and had been on methadone coming into the hospital so it is expected that she will have some chronic analgesic use associated amplification of pain awareness and may have more intense pain experience and require more narcotic use than a nonchronic pain patient might. MRSA screen was done and the screen was negative. Her home blood sugar regimen was switched around because the products she uses at home which is Tresiba is not available in this facility, therefore insulin Detemir was substituted. Dose was initially half of what she typically uses at home and is now being titrated upward 20 units subcutaneous, anticipated to be given tonight. She is having her blood sugars checked on a four times a day basis in hospital. Anticipate that this will be continued on the ARU. She is also on methadone 5 mg by mouth twice a day. She had been treated for urinary tract infection (UTI) prescribed 5 days of nitrofurantoin 100 mg by mouth twice a day as Macrobid on the second and this was held. At this point as long as she remains symptom free I think we can leave her off this agent. Also her potassium has been elevated during hospital stay with potassium's in the low 5s. 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 DISCHARGE DIAGNOSIS Mechanical fall resulting in left femoral neck fracture status post open reduction and internal fixation by Dr. Mortensen, status post placement of inferior vena cava filter by Dr. 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 PLAN: She will be transferred to ARU to continue rehabilitation stay. She will need ongoing monitoring of hemoglobin and potassium. At this point her potassium is elevated some and do not require active pharmacologic intervention but dietary intervention to restrict potassium in food would be reasonable as an ongoing management strategy. She is not currently taking medications that are notoriously potassium retaining and these should be avoided at this time. If potassium becomes more troublesome, consider consultation with nephrology. Plan will be is transfer her to ARU today and complete rehabilitation program before returning home.
[2019-07-23] MEDS ORDERED: LEVEMIR (INSULIN DETEMIR) 1 UNITS/0.01ML SC SCH (21:00)
== END 2019-07-23 11:47 | DRG 470 ==
LOC: EDBD 15:45 → M ED 15:45 → M ED INP 20:54 → M PCU 07-19 00:30
PROVIDERS: ADMIT Internal Medicine; ATTEND Family Medicine
PROC: 06L03DZ Occlusion of Inferior Vena Cava with Intraluminal Device, Percutaneous Approach (ICD-10-PCS; 2019-07-20)
PROC: 0SRS01Z Replacement of Left Hip Joint, Femoral Surface with Metal Synthetic Substitute, Open Approach (ICD-10-PCS; principal; 2019-07-20 07:30)
PROC: 30233N1 Transfusion of Nonautologous Red Blood Cells into Peripheral Vein, Percutaneous Approach (ICD-10-PCS; 2019-07-22)
DX: S72.012A Unspecified intracapsular fracture of left femur, initial encounter for closed fracture (principal); I82.412 Acute embolism and thrombosis of left femoral vein; C20 Malignant neoplasm of rectum; C78.7 Secondary malignant neoplasm of liver and intrahepatic bile duct; C78.00 Secondary malignant neoplasm of unspecified lung; C79.89 Secondary malignant neoplasm of other specified sites; D62 Acute posthemorrhagic anemia; E27.40 Unspecified adrenocortical insufficiency; W18.09XA Striking against other object with subsequent fall, initial encounter; R26.81 Unsteadiness on feet; N18.3 Chronic kidney disease, stage 3 (moderate); I12.9 Hypertensive chronic kidney disease with stage 1 through stage 4 chronic kidney disease, or unspecified chronic kidney disease; D64.81 Anemia due to antineoplastic chemotherapy; E11.22 Type 2 diabetes mellitus with diabetic chronic kidney disease; D69.6 Thrombocytopenia, unspecified; E03.2 Hypothyroidism due to medicaments and other exogenous substances; E83.42 Hypomagnesemia; Z87.891 Personal history of nicotine dependence; E66.9 Obesity, unspecified; Z68.37 Body mass index [BMI] 37.0-37.9, adult; Z90.49 Acquired absence of other specified parts of digestive tract; Z79.899 Other long term (current) drug therapy; Z88.6 Allergy status to analgesic agent; Z88.8 Allergy status to other drugs, medicaments and biological substances; Z91.041 Radiographic dye allergy status

== ENCOUNTER 2019-07-21 13:22 | Inpatient (IN) | payer MEDICARE ==
[~2019-07-21] VITALS: Ht 157.5 cm; Wt 99.0 kg
[~2019-07-21 13:22] MED LIST changes: +LEVO100T5 PO; +MAGN400T2 PO; +NITR100C2 PO
[2019-07-23] MEDS ORDERED: MOM30SS2 PO (09:43)
[2019-07-23] MEDS ORDERED: NYAM10003 TOP (09:43)
[2019-07-23] MEDS ORDERED: PERCOCET PO (09:43)
[2019-07-23] MEDS ORDERED: INSUDET SC ×2 (09:43→13:28)
[2019-07-23] MEDS ORDERED: SENN-52 PO (09:43)
[2019-07-23] MEDS ORDERED: ELIQ5TAB PO ×2 (09:43→13:28)
[2019-07-23] MEDS ORDERED: MAG400TA PO (09:43)
[2019-07-23 11:50] VITALS: BP 124/59
[2019-07-23] MEDS ORDERED: NYST1POW9 TOP (13:28)
[2019-07-23] MEDS ORDERED: SENN-50 PO (13:28)
[2019-07-23] MEDS ORDERED: MILKSUS3 PO (13:28)
[2019-07-23] MEDS ORDERED: PERC5TAB12 PO (13:28)
[2019-07-23 14:00] VITALS: BP 139/63
[2019-07-23] MEDS ORDERED: PERCOCET 5MG/325MG TAB PO ONE ×2 (15:00→16:00)
--- NOTE | 2019-07-23 16:25 | HPEPDOC ---
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 Hip X-rays revealed a left femoral neck fracture. She was also found to have a Left common femoral DVT and left greater saphenous DVT. She underwent an IVC filter placement on 07-20-19 after which she underwent a left hip hemiarthroplasty performed on 07-20-19 complicated by post-op anemia. She was going to be started on Eliquis for DVT, but she also developed hematuria which she reports is chronic and intermittent, so the Eliquis was held. Patient received 2 units of prbcs on 07-22-19 with an increase in Hgb from 7.2 to 8.4. She had hyperkalemia and hypomagnesemia, was evaluated by therapy and found to be well below her prior level of function, deemed medically appropriate for discharge to ARU on 07-23-19. REVIEW OF SYSTEMS: The following is a completed review of systems and has been reviewed. Review of systems otherwise unremarkable. PAIN: Patient self reports left hip pain EYES: No recent vision changes EARS, NOSE, & THROAT: No throat pain, or dysphagia, or rhinorrhea CARDIOVASCULAR: Denies chest pain or palpitations PULMONARY: Denies shortness of breath GASTROINTESTINAL: Denies constipation/diarrhea, +colostomy GENITOURINARY:+ intermittent hematuria MUSCULOSKELETAL: left hip fracture NEUROLOGICAL:peripheral polyneuropathy HEMATOLOGICAL: +anemia SKIN: +port and left hip incision PSYCHIATRIC: Unremarkable All other review of systems found to be negative. PAST MEDICAL HISTORY: as per HPI PAST SURGICAL HISTORY: as per HPI ALLERGIES: Please see below. MEDICATIONS: Please see below. FAMILY HISTORY: CAD, cancer, DM SOCIAL HISTORY: Former smoker, occasional ETOH DIET: low potassium PHYSICAL EXAMINATION: VITAL SIGNS: Please see below. GENERAL: Pleasant and cooperative. No acute distress. HEENT: PERRL. Extraocular movements intact. Clear conjunctiva CARDIOVASCULAR: Regular rate and rhythm. No murmurs, rubs, or gallops LUNGS: Clear to auscultation bilaterally. No wheezes. No rhonchi ABDOMEN: Soft, nontender, nondistended. Positive bowel sounds. Normal active bowel sounds, +colostomy NEUROLOGICAL: Alert and oriented times three. Cranial nerves II through XII grossly intact. Sensation grossly intact EXTREMITIES: 5\5 strength bilateral upper extremities. 5\5 strength right lower extremity. 5/5 strength left ankle Df and EHL, exam limited due to recent surgery SKIN: left hip incision without induration or ecchymosis LABORATORY DATA: Please see below. IMAGING:Imaging documentation personally reviewed by record FUNCTIONAL STATUS: Premorbid: Modified Independent with all activities of daily life as well as mobility household distances with RW On Admission: Min-Mod assistance for bathing, upper body dressing, bed chair and wheelchair transfers, toilet transfers, ambulation. GOALS: Modified Independent with all activities of daily life as well as mobility household distances with RW ASSESSMENT:68-year-old F with past medical history of recurrent rectal adenocarcinoma who presents status post fall with left hip fracture s.p hemia rthroplasty PLAN: 1. rehab: PT/OT- strenghten/stretch/maintain ROM LE and UE while maintaining hip precautions, advance gait and ADL training 2. Neuro: stable 3. Cardiac: pmh htn c/u home meds- medicine consulted to assist with management 4. Ortho: s/p left hip mark-arthroplasty maintain hip precautions-ortho consulted 4. resp: encourage incentive spirometry 5. Endo: pmh DM c/u insulin coverage with Levemir -hypothyroidism-c/u SYnthroid 6. Renal: DOTTIE on CKD, monitor and consider gentle IVF 7. Vasc: +LLE DVT s/p IVC filter placed 07-20-19, will hold Eliquis tonight to assure her Hgb does not drop further and monitor for more hematuria before initiating, she is protected at this time from PE via IVC filter- discussed case with Dr. Merchant who ultimately does want the Eliquis restarted and to monitor for bleeding, recs appreciated 8. Heme: post-op anemia in setting intermittent hematuria s/p 2 units on inpatient, will consider repeat transfusion if <8 9. Hyperkalemia- etiology unclear, possibly due to Methadone use, will start low potassium diet and consider kayexelate, will consult renal if worsens 10. Hypomagnesemia- c/u oral supplement 11. Pain: Methadone, oxycodone, gabapentin (renally dosed), tylenol 12. Dispo: tbd POST ADMISSION PHYSICIAN EVALUATION: Medical and functional status: Description of medical status, medical assessment: As above. Rehabilitation diagnosis and current and prior cold morbid medical conditions as above. Risk of complications and plans to mitigate them as above. Description of functional status current status is as above. Prior status as above. Status compared to preadmission: There are no clinically significant differences between the patient's current status and the information described on the preadmission screening document. Treatment plan anticipated: Treatment plan is as described above. Required disciplines including physical therapy, occupational therapy, others as noted above. Intensity of services: 3 hours a day, 6 days a week. Special considerations: There are no specific special or safety considerations that would likely preclude immediate implementation of an intensive rehabilitation program or subsequently influence the plan of care ATTESTATION: Considering all the information above, it is my best judgment that this patient requires intensive rehabilitation therapy as described above and an inpatient hospital environment due to the complexity of nursing, medical, and rehabilitation needs required by the patient. Furthermore, this patient can reasonably be expected to participate in an benefit from an inpatient rehabilitation stay with an interdisciplinary team approach to the delivery of rehabilitation care under the direction and supervision of rehabilitation physician PROGNOSIS: Good ESTIMATED LENGTH OF STAY:18-21 days. PROJECTED DISCHARGE DESTINATION: Home with family support and any durable medical equipment required to increase functional safety and mobility. TIME SPENT COUNSELING AND COORDINATING INITIAL CARE: Greater than 70 minutes. Vital Signs Vital Sign - Last 24 Hours 07/23/19 07/23/19 07/23/19 14:43 15:40 16:03 Resp 20 18 18 Home Medications Scheduled Apixaban (Eliquis) 5 Mg Tablet, 10 MG PO BID, (Reported) 10MG FOR 7 DAYS THEN 5MG BID - STARTED AT [facility] Atorvastatin Calcium (Atorvastatin Calcium) 10 Mg Tab, 10 MG PO DAILY, (Reported) Carvedilol (Carvedilol) 6.25 Mg Tablet, 6.25 MG PO BID, (Reported) Gabapentin (Gabapentin) 300 Mg Cap, 600 MG PO QHS Insulin Detemir (Levemir) 100 Unit/1 Ml Vial, 20 UNITS SC QHS, (Reported) STARTED AT [facility] - ON TRESIBA AT HOME Levothyroxine Sodium (Levothyroxine Sodium) 100 Mcg Tablet, 100 MCG PO DAILY, (Reported) Magnesium Hydroxide (Milk of Magnesia) 400 Mg/5 Ml Oral.susp, 30 ML PO DAILY, (Reported) STARTED AT [facility] Magnesium Oxide (Magnesium Oxide) 400 Mg Tablet, 800 MG PO BID, (Reported) DOSE INCREASE FROM 400MG BID AT [facility] Nystatin (Nystatin Powder) 15 Gm Powder, 1 DOSE TOP BID, (Reported) APPLY TO ABDOMINAL FOLDS, UNDER BREASTS, AND GROIN AREA Sennosides/Docusate Sodium (Senna Plus Tablet) 1 Each Tablet, 1 TAB PO BID, (Reported) STARTED AT [facility] Scheduled PRN Loperamide HCl (Loperamide) 2 Mg Capsule, 4 MG PO for DIARRHEA, (Reported) Methadone HCl (Methadone HCl) 5 Mg Tablet, 5 MG PO Q12H PRN for PAIN, (Reported) Ondansetron HCl (Ondansetron HCl) 8 Mg Tablet, 8 MG PO Q6H PRN for NAUSEA OR VOMITING, (Reported) Oxycodone HCl/Acetaminophen (Percocet 5-325 mg Tablet) 1 Each Tablet, 2 TAB PO Q4H PRN for PAIN, (Reported) STARTED AT [facility] Prochlorperazine Maleate (Prochlorperazine Maleate) 10 Mg Tablet, 10 MG PO Q8H PRN for NAUSEA OR VOMITING, (Reported) Allergies Coded Allergies: aspirin (Verified Allergy, Severe, ANAPHYLAXIS, 01/07/19) Contrast Media (Verified Allergy, Unknown, itching for days, 11/19/18) atenolol (Verified Adverse Reaction, Intermediate, NAUSEA AND DIZZINESS, 01/07/19) lisinopril (Verified Adverse Reaction, Intermediate, VERY DIZZY, 01/07/19) A-FIB/CHADSVASC A-FIB History Current/History of A-Fib/PAF?: No CHRIS RICH MD Jul 23, 2019 16:25
[2019-07-23] MEDS ORDERED: oxyCODONE 5MG TAB PO PRN (16:30)
[2019-07-23] MEDS ORDERED: BISACODYL 5 MG TAB PO PRN (16:30)
[2019-07-23] MEDS ORDERED: CALCIUM CARBONATE 500 MG CHEW U/D PO PRN (16:30)
[2019-07-23] MEDS ORDERED: MOM 30ML SUSPENSION UDC PO PRN (16:30)
[2019-07-23] MEDS ORDERED: DEXTROSE 50% 50 ML SYRINGE IV PRN (16:30)
[2019-07-23] MEDS ORDERED: GLUCOSE 4 GM CHEW TABLET PO PRN (16:30)
[2019-07-23] MEDS ORDERED: GLUCAGON FOR INJ 1 MG VIAL (J1610) SC PRN (16:30)
[2019-07-23] MEDS: diphenhydrAMINE 25 MG CAP PO PRN (17:44)
[2019-07-23] MEDS: HumaLOG INSULIN (NovoLOG) PER UNIT SC SCH ×2 (17:44→21:42)
[2019-07-23 20:00] VITALS: BP 128/62
[2019-07-23] MEDS ORDERED: SODIUM CHLORIDE 0.9% INJ 10 ML SYR IV PRN (20:15)
[2019-07-23] MEDS: DOCUSATE SODIUM 100 MG CAP PO SCH (21:00)
[2019-07-23] MEDS ORDERED: SENNA 8.6 MG TAB (SENOKOT) PO SCH (21:00)
[2019-07-23] MEDS: ACETAMINOPHEN 500 MG TAB PO SCH (21:30)
[2019-07-23] MEDS: CARVedilol 6.25 MG TAB PO SCH (21:31)
[2019-07-23] MEDS: MAGNESIUM OXIDE 400 MG TAB (MAG-OX) PO SCH (21:31)
[2019-07-23] MEDS: GABAPENTIN 300 MG CAP PO SCH (21:31)
[2019-07-23] MEDS: METHADONE 5 MG TAB (S0109) PO SCH (21:32)
[2019-07-23] MEDS: NYSTATIN 100,000 UNITS/GM TOPICAL PWD 15 GM TOP SCH (21:33)
[2019-07-23] MEDS: LEVEMIR (INSULIN DETEMIR) 1 UNITS/0.01ML SC SCH (21:33)
[2019-07-24] MEDS: oxyCODONE 5MG TAB PO PRN ×2 (02:25→11:13)
[2019-07-24 06:10] VITALS: BP 153/70
[2019-07-24] MEDS: LEVOTHYROXINE 100MCG TABLET (0.1MG) PO SCH (06:20)
[2019-07-24 07:04] LABS: BASO % 0.3 % (0.0-1.0); EOS # 0.4 10^3/uL (0.0-0.5); EOS % 6.3 % (0.0-3.0); HEMATOCRIT 26.7 % (36.0-47.0); HEMOGLOBIN 8.4 g/dl (12.0-15.5); LYMPH # 0.8 10^3/uL (1.5-5.0); LYMPH % 11.4 % (24.0-44.0); MEAN CORPUSCULAR HEMOGLOBIN 27.5 pg (27.0-33.0); MEAN CORPUSCULAR HGB CONC 31.5 g/dl (32.0-36.5); MEAN CORPUSCULAR VOLUME 87.3 fl (80.0-96.0); MONO # 0.5 10^3/uL (0.0-0.8); MONO % 6.4 % (0.0-5.0); NEUTROPHILS # 5.3 10^3/uL (1.5-8.5); PLATELET COUNT, AUTOMATED 172 10^3/uL (150-450); RED BLOOD COUNT 3.06 10^6/uL (4.00-5.40)
[2019-07-24 07:29] LABS: ALBUMIN 2.1 GM/DL (3.2-5.2); BILIRUBIN,TOTAL 0.7 MG/DL (0.2-1.0); CALCIUM LEVEL 8.2 MG/DL (8.8-10.2); CREATININE FOR GFR 1.46 MG/DL (0.55-1.30); GLOMERULAR FILTRATION RATE 37.8 (>45); POTASSIUM SERUM 5.5 MEQ/L (3.5-5.1)
[2019-07-24] MEDS: ATORVASTATIN 10 MG TAB PO SCH (08:36)
[2019-07-24] MEDS: HumaLOG INSULIN (NovoLOG) PER UNIT SC SCH ×4 (08:36→20:37)
[2019-07-24] MEDS: MAGNESIUM OXIDE 400 MG TAB (MAG-OX) PO SCH ×2 (08:36→20:34)
[2019-07-24] MEDS: DOCUSATE SODIUM 100 MG CAP PO SCH (08:37)
[2019-07-24] MEDS: CARVedilol 6.25 MG TAB PO SCH ×2 (08:37→20:34)
[2019-07-24] MEDS: ACETAMINOPHEN 500 MG TAB PO SCH ×3 (08:37→20:35)
[2019-07-24] MEDS: METHADONE 5 MG TAB (S0109) PO SCH ×2 (08:38→20:34)
[2019-07-24] MEDS: SODIUM CHLORIDE 0.9% INJ 10 ML SYR IV SCH (08:39)
[2019-07-24] MEDS: NYSTATIN 100,000 UNITS/GM TOPICAL PWD 15 GM TOP SCH ×2 (08:39→20:38)
[2019-07-24] MEDS: diphenhydrAMINE 25 MG CAP PO PRN (08:48)
[2019-07-24] MEDS ORDERED: PANTOPRAZOLE 40MG TAB (PROTONIX) PO SCH (09:00)
[2019-07-24 14:00] VITALS: BP 131/64
[2019-07-24] MEDS ORDERED: SOD POLYSTYRENE SULFONATE SUSP 15 GM/60 ML UD PO ONE (16:00)
[2019-07-24] MEDS: oxyCODONE 5MG TAB PO SCH (16:02)
--- NOTE | 2019-07-24 18:13 | IPN ---
DATE: 07/24/2019 DIAGNOSIS: Metastatic rectal carcinoma to liver, lung and pelvis, ARI wild-type type, BRAF negative, mismatch repair (MMR) stable, HER-2 amplified. Most recently treated for progression with pembrolizumab/cetuximab on clinical trial at [facility], begun 03/31/2019, as third line treatment. Now admitted with the traumatic left femoral fracture, left common femoral deep vein thrombosis (DVT), left greater saphenous DVT, status post inferior vena cava (IVC) filter placement, and status post hemiarthroplasty 07/20/2019. HPI: Elisabeth was getting into a car last Saturday and fell and fractured her hip. She has undergone the above treatment. Her medical oncology picture is that in February 2019 she had disease progression with rectovaginal fistula and vaginal bleeding; she underwent palliative diverting colostomy and enrolled in a clinical trial under Dr. Christiano Sullivan at [facility], being treated with pembrolizumab/cetuximab (study [id number]). Her oncology care has been almost entirely managed at [facility] since. In early July she was found to have disease progression on scans at [facility]. She was screened and found eligible for another clinical trial. Her sites of disease are rectovaginal fistula, liver, lung, pelvis; it's thought some recent LLE swelling noted at [facility] was due to pelvic tumor (Elisabeth reports ultrasounds there were negative. She has chronic intermittent vaginal discharge/stools/blood, chronic rectal mucous drainage. Because she has HER2 amplified cancer she was deemed eligible to enroll in a phase 2 study of tucatinib plus trastuzumab. She was set to return to [facility] next week to complete enrollment and begin treatment when her fall and hip fracture occurred. The clinical trial coordinator Elisabeth works with at [facility] is Becca Espinosa. At the bedside, Elisabeth is awake, alert, reclining, in good spirits. She reports having been up out of bed today and walking with physical therapy. She recounted the events leading to her fall and hospitalization. She had noted left lower extremity swelling, acute on chronic, over the last several weeks. Imaging apparently at [facility] was negative for DVT, but on this hospitalization left common femoral and greater saphenous DVTs were found on ultrasound and an IVC filter placed. During this hospitalization, the has required magnesium correction, likely due to recent treatment with cetuximab, a targeted agent well known to cause hypomagnesemia. Vital signs reviewed and normal and stable. LABORATORY DATA: WBC 7, hemoglobin 8.4, hematocrit 26, MCV 87, platelets 172. Postoperative hemoglobin dropped to 7.2, requiring 2 units transfusion 07/22/2019. 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 She is eligible for fourth line treatment on a [facility] phase 2 trial of tucatinib plus trastuzumab (two nonchemotherapy medications) and was due to formally enroll in the trial 07/28/19, but on a July 20 fell and sustained a left femoral neck fracture and underwent hip arthroplasty. Her treatment here has been complicated by left lower extremity DVT, now status post IVC filter placement. She has been chronically anticoagulated for a prior history of thromboembolic events. She has up to now had chronic hypomagnesemia secondary to cetuximab. This may resolve now that she is fully off cetuximab. PLAN: 1. On Saturday, I'll contact [facility] to alert them of Elisabeth's admission and try to help re-coordinate her start of trial. 2. Agree with current management in terms of arthroplasty physical therapy (PT). 4. Agree with Eliquis and monitoring hematocrit closely, holding as needed. At high risk for thrombotic complications of IVC filter. 5. Agree with current transfusion requirement for 1-2 units for hemoglobin less than 8. We will follow intermittently as needed.
[2019-07-24 20:15] VITALS: BP 141/60
[2019-07-24] MEDS: GABAPENTIN 300 MG CAP PO SCH (20:34)
[2019-07-24] MEDS: PANTOPRAZOLE 40MG TAB (PROTONIX) PO SCH (20:36)
[2019-07-24] MEDS: LEVEMIR (INSULIN DETEMIR) 1 UNITS/0.01ML SC SCH (20:37)
[2019-07-24] MEDS: AMITRIPTYLINE 25 MG TAB PO SCH (20:38)
[2019-07-25] MEDS: oxyCODONE 5MG TAB PO PRN ×3 (02:20→14:23)
[2019-07-25 05:55] VITALS: BP 157/72
[2019-07-25] MEDS: LEVOTHYROXINE 100MCG TABLET (0.1MG) PO SCH (06:24)
[2019-07-25 06:56] LABS: BASO % 0.5 % (0.0-1.0); EOS # 0.3 10^3/uL (0.0-0.5); EOS % 6.1 % (0.0-3.0); HEMATOCRIT 26.3 % (36.0-47.0); HEMOGLOBIN 8.1 g/dl (12.0-15.5); LYMPH # 0.8 10^3/uL (1.5-5.0); LYMPH % 13.5 % (24.0-44.0); MEAN CORPUSCULAR HEMOGLOBIN 27.2 pg (27.0-33.0); MEAN CORPUSCULAR HGB CONC 30.8 g/dl (32.0-36.5); MEAN CORPUSCULAR VOLUME 88.3 fl (80.0-96.0); MONO # 0.4 10^3/uL (0.0-0.8); MONO % 6.3 % (0.0-5.0); NEUTROPHILS # 4.1 10^3/uL (1.5-8.5); NEUTROPHILS % 73.1 % (36.0-66.0); PLATELET COUNT, AUTOMATED 170 10^3/uL (150-450); RED BLOOD COUNT 2.98 10^6/uL (4.00-5.40); WHITE BLOOD COUNT 5.6 10^3/uL (4.0-10.0)
[2019-07-25 07:18] LABS: CREATININE FOR GFR 1.32 MG/DL (0.55-1.30); GLOMERULAR FILTRATION RATE 42.5 (>45)
[2019-07-25] MEDS: ATORVASTATIN 10 MG TAB PO SCH (08:36)
[2019-07-25] MEDS: PANTOPRAZOLE 40MG TAB (PROTONIX) PO SCH ×2 (08:36→20:12)
[2019-07-25] MEDS: ACETAMINOPHEN 500 MG TAB PO SCH ×3 (08:36→20:12)
[2019-07-25] MEDS: HumaLOG INSULIN (NovoLOG) PER UNIT SC SCH ×4 (08:36→20:13)
[2019-07-25] MEDS: MAGNESIUM OXIDE 400 MG TAB (MAG-OX) PO SCH ×2 (08:37→20:12)
[2019-07-25] MEDS: APIXABAN 5 MG TAB (ELIQUIS) PO SCH ×2 (08:37→20:12)
[2019-07-25] MEDS: CARVedilol 6.25 MG TAB PO SCH ×2 (08:38→20:13)
[2019-07-25] MEDS: METHADONE 5 MG TAB (S0109) PO SCH ×2 (08:38→20:12)
[2019-07-25] MEDS: NYSTATIN 100,000 UNITS/GM TOPICAL PWD 15 GM TOP SCH ×2 (08:38→20:14)
[2019-07-25] MEDS: SODIUM CHLORIDE 0.9% INJ 10 ML SYR IV SCH (08:39)
[2019-07-25] MEDS: diphenhydrAMINE 25 MG CAP PO PRN ×2 (08:46→18:44)
[2019-07-25 14:00] VITALS: BP 139/66
--- NOTE | 2019-07-25 15:24 | IPN ---
DATE: 07/25/2019 DIAGNOSES: 1. Metastatic rectal carcinoma, most recently under medical oncology care at [facility], on clinical trial involving pembrolizumab/cetuximab. Recently found to have progression and eligible to start phase 2 trial of targeted therapy for her HER2/brent positive/HER2 amplified rectal carcinoma, now hospitalized with left hip fracture following fall at home. 2. Left lower extremity deep vein thrombosis in the setting of recent chronic left lower extremity edema. INTERVAL HISTORY: Elisabeth had an okay night. She is elevating her leg. She has been out of bed today to get cleaned up and reports there is more exercise planned for later in the day. She started Eliquis on July 25, today. She says her left leg is very heavy and boggy, difficult to lift, but otherwise she is feeling okay. LABORATORY DATA: Hemoglobin and hematocrit 8.1 and 26.3, respectively. WBC and platelets normal. Mild neutrophilia, 73%. Mild eosinophilia at 6%. Mild renal insufficiency. Mild hyponatremia, sodium 135. Hypoalbuminemia noted on 07/24/2019 labs. IMPRESSION: 1. Metastatic rectal carcinoma, HER2 amplified, BRAF negative, MMR stable, hospitalized with acute left hip fracture 07/20/2019, status post arthroplasty. Found to have left lower extremity deep vein thrombosis (DVT), now restarting Eliquis. 2. History of prior DVTs. 3. Most recently on third-line cancer treatment with pembrolizumab and cetuximab at [facility], on clinical trial. Most recent restaging scans in late June/early July showed disease progression, and the patient is eligible to enroll in a targeted therapy trial of tucatinib and traztuzamab. Recovering now from her hip fracture in acute rehabilitation. PLAN: Agree with anticoagulation and close followup of hematocrit, transfusing as needed and exploring for sites of bleeding as needed. Rehabilitation and orthopedic management as indicated. We will follow intermittently as needed. TIME STATEMENT: Fifteen minutes spent [id number] with the patient reviewing her lower extremity edema history, apixaban, answering questions, and reviewing labs as well as transfusion parameters. MTDD
[2019-07-25] MEDS: oxyCODONE 5MG TAB PO SCH (18:43)
[2019-07-25 19:42] VITALS: BP 127/65
[2019-07-25] MEDS: GABAPENTIN 300 MG CAP PO SCH (20:12)
[2019-07-25] MEDS: LEVEMIR (INSULIN DETEMIR) 1 UNITS/0.01ML SC SCH (20:14)
[2019-07-25] MEDS: AMITRIPTYLINE 25 MG TAB PO SCH (20:51)
[2019-07-26] MEDS: diphenhydrAMINE 25 MG CAP PO PRN ×3 (01:49→18:30)
[2019-07-26] MEDS: oxyCODONE 5MG TAB PO PRN (01:50)
[2019-07-26 05:43] VITALS: BP 143/71
[2019-07-26] MEDS: LEVOTHYROXINE 100MCG TABLET (0.1MG) PO SCH (06:03)
[2019-07-26] MEDS: oxyCODONE 5MG TAB PO SCH ×4 (06:43→18:30)
[2019-07-26 06:50] LABS: HEMATOCRIT 26.6 % (36.0-47.0); HEMOGLOBIN 8.2 g/dl (12.0-15.5); MEAN CORPUSCULAR HEMOGLOBIN 27.1 pg (27.0-33.0); MEAN CORPUSCULAR HGB CONC 30.8 g/dl (32.0-36.5); MEAN CORPUSCULAR VOLUME 87.8 fl (80.0-96.0); PLATELET COUNT, AUTOMATED 191 10^3/uL (150-450); RED BLOOD COUNT 3.03 10^6/uL (4.00-5.40); WHITE BLOOD COUNT 5.3 10^3/uL (4.0-10.0)
[2019-07-26] MEDS: APIXABAN 5 MG TAB (ELIQUIS) PO SCH ×2 (08:10→21:03)
[2019-07-26] MEDS: MAGNESIUM OXIDE 400 MG TAB (MAG-OX) PO SCH ×2 (08:11→21:04)
[2019-07-26] MEDS: ATORVASTATIN 10 MG TAB PO SCH (08:11)
[2019-07-26] MEDS: PANTOPRAZOLE 40MG TAB (PROTONIX) PO SCH ×2 (08:11→21:03)
[2019-07-26] MEDS: CARVedilol 6.25 MG TAB PO SCH ×2 (08:11→21:04)
[2019-07-26] MEDS: METHADONE 5 MG TAB (S0109) PO SCH ×2 (08:11→21:03)
[2019-07-26] MEDS: ACETAMINOPHEN 500 MG TAB PO SCH ×3 (08:11→21:05)
[2019-07-26] MEDS: HumaLOG INSULIN (NovoLOG) PER UNIT SC SCH ×4 (08:12→21:06)
[2019-07-26] MEDS: NYSTATIN 100,000 UNITS/GM TOPICAL PWD 15 GM TOP SCH ×2 (08:13→21:06)
[2019-07-26] MEDS: SODIUM CHLORIDE 0.9% INJ 10 ML SYR IV SCH (08:13)
--- NOTE | 2019-07-26 12:53 | IPN ---
MEDICAL ONCOLOGY INPATIENT FOLLOWUP DATE OF SERVICE: 07/26/2019 DIAGNOSIS: Metastatic HER2 amplified BRAF negative, MMR stable rectal adenocarcinoma, currently hospitalized with left femur fracture. Most recently on salvage treatment, on clinical trial for recurrent disease. OVERNIGHT EVENTS: Elisabeth is doing well this morning. When I entered the room, she is sitting up, had just completed exercise, and was getting ready to go shower. She has less erythema in the left lower extremities, able to move it volitionally more easily, and overall feels she is doing a little bit better. She denies new shortness of breath. Laboratories are stable. LABORATORIES: WBC 5.3, hemoglobin 8.2, hematocrit 26.6, platelets 191. Sodium 135, creatinine 1.32, GFR 42, glucose 242, calcium 8.0. IMPRESSION: Metastatic rectal carcinoma, HER2 amplified, with progression through third-line treatment with pembrolizumab/cetuximab, on clinical trial at [facility] ([facility] Status post left femur fracture after a traumatic fall 07/20/2019 and status post left hemiarthroplasty. Now in acute rehabilitation. Improving with mobility. Left lower extremity deep venous thrombosis (DVT) in the setting of chronic left lower extremity edema. Likely due to a left pelvic mass impeding venous return, mildly decreased edema today, and increased mobility on apixaban. Personal history of prior deep venous thromboses (DVTs), at significant risk for recurrence. PLAN: 1. Agree with current rehabilitation therapy. 2. Tomorrow, I will contact [facility] to help coordinate Elisabeth's followup there for phase II trial enrollment,involving target nonchemotherapy drugs. Will followup. MTDD
[2019-07-26 14:00] VITALS: BP 167/75
[2019-07-26 20:00] VITALS: BP 174/70
[2019-07-26] MEDS: GABAPENTIN 300 MG CAP PO SCH (21:04)
[2019-07-26] MEDS: AMITRIPTYLINE 25 MG TAB PO SCH (21:04)
[2019-07-26] MEDS: LEVEMIR (INSULIN DETEMIR) 1 UNITS/0.01ML SC SCH (21:05)
[2019-07-27] MEDS: oxyCODONE 5MG TAB PO PRN (03:24)
[2019-07-27] MEDS: diphenhydrAMINE 25 MG CAP PO PRN ×2 (03:29→12:17)
[2019-07-27 06:00] VITALS: BP 153/76
[2019-07-27 06:33] LABS: BASO % 0.7 % (0.0-1.0); EOS # 0.4 10^3/uL (0.0-0.5); EOS % 6.5 % (0.0-3.0); HEMATOCRIT 30.1 % (36.0-47.0); HEMOGLOBIN 9.2 g/dl (12.0-15.5); LYMPH # 0.6 10^3/uL (1.5-5.0); LYMPH % 11.6 % (24.0-44.0); MEAN CORPUSCULAR HEMOGLOBIN 27.2 pg (27.0-33.0); MEAN CORPUSCULAR HGB CONC 30.6 g/dl (32.0-36.5); MEAN CORPUSCULAR VOLUME 89.1 fl (80.0-96.0); MONO # 0.4 10^3/uL (0.0-0.8); MONO % 6.9 % (0.0-5.0); NEUTROPHILS # 4.1 10^3/uL (1.5-8.5); NEUTROPHILS % 73.8 % (36.0-66.0); PLATELET COUNT, AUTOMATED 223 10^3/uL (150-450); RED BLOOD COUNT 3.38 10^6/uL (4.00-5.40); WHITE BLOOD COUNT 5.5 10^3/uL (4.0-10.0)
[2019-07-27] MEDS: LEVOTHYROXINE 100MCG TABLET (0.1MG) PO SCH (06:42)
[2019-07-27 06:43] LABS: CREATININE FOR GFR 1.41 MG/DL (0.55-1.30); GLOMERULAR FILTRATION RATE 39.4 (>45)
[2019-07-27] MEDS: oxyCODONE 5MG TAB PO SCH ×4 (06:43→18:37)
[2019-07-27] MEDS: ACETAMINOPHEN 500 MG TAB PO SCH ×3 (08:52→21:07)
[2019-07-27] MEDS: ATORVASTATIN 10 MG TAB PO SCH (08:53)
[2019-07-27] MEDS: MAGNESIUM OXIDE 400 MG TAB (MAG-OX) PO SCH ×2 (08:53→21:05)
[2019-07-27] MEDS: CARVedilol 6.25 MG TAB PO SCH ×2 (08:53→21:08)
[2019-07-27] MEDS: HumaLOG INSULIN (NovoLOG) PER UNIT SC SCH ×4 (08:53→21:00)
[2019-07-27] MEDS: APIXABAN 5 MG TAB (ELIQUIS) PO SCH ×2 (08:53→21:07)
[2019-07-27] MEDS: METHADONE 5 MG TAB (S0109) PO SCH ×2 (08:53→21:07)
[2019-07-27] MEDS: PANTOPRAZOLE 40MG TAB (PROTONIX) PO SCH ×2 (08:53→21:08)
[2019-07-27] MEDS: NYSTATIN 100,000 UNITS/GM TOPICAL PWD 15 GM TOP SCH ×2 (08:54→21:09)
[2019-07-27] MEDS: SODIUM CHLORIDE 0.9% INJ 10 ML SYR IV SCH (09:00)
[2019-07-27 14:00] VITALS: BP 151/70
[2019-07-27] MEDS ORDERED: FLUCONAZOLE 50MG TABLET PO ONE (16:00)
--- NOTE | 2019-07-27 16:30 | IPNPDOC ---
PM&R Progress Note DATE OF SERVICE: Jul 24, 2019 Complaint Clerk Progress Note Subjective: Patient reporting she is having stabbing pain in her left leg. She is open to trying Elavil. She would like her oxycodone to be scheduled to help her get th rough therapy better. REVIEW OF SYSTEMS: The following is a completed review of systems and has been reviewed. Review of systems otherwise unremarkable. PAIN: Patient self reports left hip pain EYES: No recent vision changes EARS, NOSE, & THROAT: No throat pain, or dysphagia, or rhinorrhea CARDIOVASCULAR: Denies chest pain or palpitations PULMONARY: Denies shortness of breath GASTROINTESTINAL: Denies constipation/diarrhea, +colostomy GENITOURINARY:+ intermittent hematuria MUSCULOSKELETAL: left hip fracture NEUROLOGICAL:peripheral polyneuropathy HEMATOLOGICAL: +anemia SKIN: +port and left hip incision PSYCHIATRIC: Unremarkable All other review of systems found to be negative. PHYSICAL EXAMINATION: VITAL SIGNS: Please see below. GENERAL: Pleasant and cooperative. No acute distress. HEENT: PERRL. Extraocular movements intact. Clear conjunctiva CARDIOVASCULAR: Regular rate and rhythm. No murmurs, rubs, or gallops LUNGS: Clear to auscultation bilaterally. No wheezes. No rhonchi ABDOMEN: Soft, nontender, nondistended. Positive bowel sounds. Normal active bowel sounds, +colostomy NEUROLOGICAL: Alert and oriented times three. Cranial nerves II through XII grossly intact. Sensation grossly intact EXTREMITIES: 5\5 strength bilateral upper extremities. 5\5 strength right lower extremity. 5/5 strength left ankle Df and EHL, exam limited due to recent surgery SKIN: left hip incision without induration or ecchymosis ASSESSMENT:68-year-old F with past medical history of recurrent rectal adenocarcinoma who presents status post fall with left hip fracture s.p hemiarthroplasty PLAN: 1. rehab: PT/OT- strenghten/stretch/maintain ROM LE and UE while maintaining hip precautions, advance gait and ADL training 2. Neuro: stable 3. Cardiac: pmh htn c/u home meds- medicine consulted to assist with management 4. Ortho: s/p left hip mark-arthroplasty maintain hip precautions-ortho consulted 4. resp: encourage incentive spirometry 5. Endo: pmh DM c/u insulin coverage with Levemir -hypothyroidism-c/u SYnthroid 6. Renal: DOTTIE on CKD, monitor and consider gentle IVF 7. Vasc: +LLE DVT s/p IVC filter placed 07-20-19, starting Eliquis tomorrow as Hgb stable today - full dose 10mg BID x7 days to be followed by 5mg BID 8. Heme: post-op anemia in setting intermittent hematuria s/p 2 units on inpatient, will consider repeat transfusion if <8-stable 9. Hyperkalemia- etiology unclear, possibly due to Methadone use, c/u low potassium diet, kayexelate ordered , will consult renal if worsens 10. Hypomagnesemia- c/u oral supplement 11. Pain: Methadone, oxycodone-scheduled, gabapentin (renally dosed), tylenol, will trial Elavil 25mg qhs for stabbing pain in left leg 12. Dispo: tbd Allergies Coded Allergies: aspirin (Verified Allergy, Severe, ANAPHYLAXIS, 01/07/19) Contrast Media (Verified Allergy, Unknown, itching for days, 11/19/18) atenolol (Verified Adverse Reaction, Intermediate, NAUSEA AND DIZZINESS, 01/07/19) lisinopril (Verified Adverse Reaction, Intermediate, VERY DIZZY, 01/07/19) Vital Signs Vital Signs Date Time Temp Pulse Resp B/P (MAP) Pulse Ox O2 Delivery O2 Flow Rate FiO2 07/27/19 15:33 18 07/27/19 14:00 97.5 78 151/70 (97) 99 Laboratory Data CBC/BMP Laboratory Tests 07/27/19 06:17 Red Blood Count 3.38 L, Mean Corpuscular Volume 89.1, Mean Corpuscular Hemoglobin 27.2, Mean Corpuscular Hemoglobin Concent 30.6 L, Red Cell Distribution Width 16.1 H, Neutrophils (%) (Auto) 73.8 H, Lymphocytes (%) (Auto) 11.6 L, Monocytes (%) (Auto) 6.9 H, Eosinophils (%) (Auto) 6.5 H, Basophils (%) (Auto) 0.7, Neutrophils # (Auto) 4.1, Lymphocytes # (Auto) 0.6 L, Monocytes # (Auto) 0.4, Eosinophils # (Auto) 0.4, Basophils # (Auto) 0.0, Calcium Level 8.0 L Labs 24H Laboratory Tests 2 07/27/19 06:17: Immature Granulocyte % (Auto) 0.5, White Blood Count 5.5, Red Blood Count 3.38L, Hemoglobin 9.2L, Hematocrit 30.1L, Mean Corpuscular Volume 89.1, Mean Corpuscular Hemoglobin 27.2, Mean Corpuscular Hemoglobin Concent 30.6L, Red Cell Distribution Width 16.1H, Platelet Count 223, Neutrophils (%) (Auto) 73.8H, Lymphocytes (%) (Auto) 11.6L, Monocytes (%) (Auto) 6.9H, Eosinophils (%) (Auto) 6.5H, Basophils (%) (Auto) 0.7, Neutrophils # (Auto) 4.1, Lymphocytes # (Auto) 0 .6L, Monocytes # (Auto) 0.4, Eosinophils # (Auto) 0.4, Basophils # (Auto) 0.0, Nucleated Red Blood Cells % (auto) 0.0, Anion Gap 7L, Glomerular Filtration Rate 39.4L, Blood Urea Nitrogen 24H, Creatinine 1.41H, Sodium Level 137, Potassium Level 5.0, Chloride Level 108H, Carbon Dioxide Level 22, Calcium Level 8.0L Current Medications Current Medications Current Medications Medications (Trade) Dose Ordered Sig/Marlene Route PRN Reason Start Time Stop Time Status Last Admin Dose Admin Acetaminophen (Tylenol Tab) 1,000 mg TID PO 07/23/19 21:00 07/27/19 15:33 Amitriptyline HCl (Elavil) 25 mg QHS PO 07/24/19 21:00 07/26/19 21:04 Apixaban (Eliquis) 5 mg BID PO 07/31/19 09:00 Apixaban (Eliquis) 10 mg BID PO 07/25/19 09:00 07/30/19 21:00 07/27/19 08:53 Atorvastatin Calcium (Lipitor) 10 mg DAILY PO 07/24/19 09:00 07/27/19 08:53 Bisacodyl (Dulcolax Tab) 5 mg DAILYPRN PRN PO CONSTIPATION 07/23/19 16:30 07/24/19 15:28 DC Calcium Carbonate (Tums) 1,000 mg Q4HP PRN PO HEARTBURN 07/23/19 16:30 Carvedilol (COReg) 6.25 mg BID PO 07/23/19 21:00 07/27/19 08:53 Dextrose (Dextrose 50%) 25 ml ASDIRECTED PRN IV SEE LABEL COMMENTS 07/23/19 16:30 Diphenhydramine HCl (Benadryl) 25 mg Q4HP PRN PO ITCHING 07/23/19 17:45 07/27/19 12:17 Docusate Sodium (Colace) 100 mg BID PO 07/23/19 21:00 07/24/19 15:28 DC 07/24/19 08:37 Gabapentin (Neurontin) 600 mg QHS PO 07/23/19 21:00 07/26/19 21:04 Glucagon (Glucagon) 1 mg ASDIRECTED PRN SC SEE LABEL COMMENTS 07/23/19 16:30 Glucose (Glucose) 16 GM ASDIRECTED PRN PO SEE LABEL COMMENTS 07/23/19 16:30 Home Med (Med Rec Complete!) ASDIRECTED XX 07/23/19 13:30 07/23/19 13:32 DC Insulin Detemir (Levemir Insulin) 10 units QHS SC 07/23/19 21:00 07/25/19 17:50 DC 07/24/19 20:37 Insulin Detemir (Levemir Insulin) 15 units QHS SC 07/25/19 21:00 07/26/19 21:05 Insulin Human Lispro (HumaLOG INSULIN) SEE PROTOCOL TABLE AC SC 07/23/19 17:30 07/27/19 12:12 Insulin Human Lispro (HumaLOG INSULIN) SEE PROTOCOL TABLE QHS SC 07/23/19 21:00 07/26/19 21:06 Levothyroxine Sodium (Synthroid) 100 mcg DAILY@06 PO 07/24/19 06:00 07/27/19 06:42 Magnesium Hydroxide (Milk Of Magnesia) 30 ml DAILYPRN PRN PO CONSTIPATION 07/23/19 16:30 Magnesium Oxide (Mag-Ox) 800 mg BID PO 07/23/19 21:00 07/27/19 08:53 Methadone HCl (Dolophine) 5 mg BID PO 07/23/19 21:00 07/27/19 08:53 Nystatin (Mycostatin Powder, Nystop) under right breast ... BID TOP 07/23/19 21:00 07/27/19 08:54 Oxycodone HCl (Roxicodone, Oxyir) 5 mg 0700,1100,1500,1900 PO 07/25/19 15:00 07/27/19 15:33 Oxycodone HCl (Roxicodone, Oxyir) 5 mg Q4HP PRN PO PAIN 07/23/19 16:30 07/24/19 15:28 DC 07/24/19 06:31 Oxycodone HCl (Roxicodone, Oxyir) 5 mg Q6H PRN PO SEVERE PAIN (PS 8-10) 07/24/19 15:30 07/27/19 03:24 Oxycodone HCl (Roxicodone, Oxyir) 10 mg Q4HP PRN PO SEVERE PAIN (PS 8-10) 07/23/19 16:30 07/24/19 15:28 DC 07/24/19 11:13 Pantoprazole Sodium (Protonix) 40 mg BID PO 07/24/19 21:00 07/27/19 08:53 Pantoprazole Sodium (Protonix) 40 mg DAILY PO 07/24/19 09:00 07/24/19 14:44 DC 07/24/19 08:36 Senna (Senokot) 1 tab QHS PO 07/23/19 21:00 07/24/19 15:28 DC Sodium Chloride (Saline Lock Flush) 10 ml ASDIRECTED PRN IV SEE LABEL COMMENTS 07/23/19 20:15 Sodium Chloride (Saline Lock Flush) 10 ml DAILY IV 07/24/19 09:00 07/26/19 08:13 Trazodone HCl (Desyrel) 25 mg QHSP PRN PO INSOMNIA 07/24/19 15:30 CHRIS RICH MD Jul 27, 2019 16:30
--- NOTE | 2019-07-27 16:30 | IPNPDOC ---
PM&R Progress Note DATE OF SERVICE: Jul 27, 2019 Wool Merchant Progress Note Subjective: Patient hoping to go home soon. She thinks she is walking well, but thinks she needs to work on stairs more. Her family is building a ramp and a rail. She t hinks the Elavil is working but would like to try a higher dose. She is reporting burning with urination. REVIEW OF SYSTEMS: The following is a completed review of systems and has been reviewed. Review of systems otherwise unremarkable. PAIN: Patient self reports left hip pain EYES: No recent vision changes EARS, NOSE, & THROAT: No throat pain, or dysphagia, or rhinorrhea CARDIOVASCULAR: Denies chest pain or palpitations PULMONARY: Denies shortness of breath GASTROINTESTINAL: Denies constipation/diarrhea, +colostomy GENITOURINARY:+ intermittent hematuria MUSCULOSKELETAL: left hip fracture NEUROLOGICAL:peripheral polyneuropathy HEMATOLOGICAL: +anemia SKIN: +port and left hip incision PSYCHIATRIC: Unremarkable All other review of systems found to be negative. PHYSICAL EXAMINATION: VITAL SIGNS: Please see below. GENERAL: Pleasant and cooperative. No acute distress. HEENT: PERRL. Extraocular movements intact. Clear conjunctiva CARDIOVASCULAR: Regular rate and rhythm. No murmurs, rubs, or gallops LUNGS: Clear to auscultation bilaterally. No wheezes. No rhonchi ABDOMEN: Soft, nontender, nondistended. Positive bowel sounds. Normal active bowel sounds, +colostomy NEUROLOGICAL: Alert and oriented times three. Cranial nerves II through XII grossly intact. Sensation grossly intact EXTREMITIES: 5\5 strength bilateral upper extremities. 5\5 strength right lower extremity. 5/5 strength left ankle Df and EHL, exam limited due to recent surgery SKIN: left hip incision without induration or ecchymosis ASSESSMENT:68-year-old F with past medical history of recurrent rectal adeno carcinoma who presents status post fall with left hip fracture s.p hemiarthroplasty PLAN: 1. rehab: PT/OT- strenghten/stretch/maintain ROM LE and UE while maintaining hip precautions, advance gait and ADL training 2. Neuro: stable 3. Cardiac: pmh htn c/u home meds- medicine consulted to assist with management 4. Ortho: s/p left hip mark-arthroplasty maintain hip precautions-ortho consulted 4. resp: encourage incentive spirometry 5. Endo: pmh DM c/u insulin coverage with Levemir -hypothyroidism-c/u SYnthroid 6. Renal: DOTTIE on CKD, monitor and consider gentle IVF 7. Vasc: +LLE DVT s/p IVC filter placed 07-20-19, c/u - full dose 10mg BID x7 days to be followed by 5mg BID 8. Heme: post-op anemia in setting intermittent hematuria s/p 2 units on inpatient, will consider repeat transfusion if <8-stable 9. Hyperkalemia- etiology unclear, possibly due to Methadone use, c/u low potassium diet, will consult renal if worsens 10. Hypomagnesemia- c/u oral supplement 11. Pain: Methadone, oxycodone-scheduled, gabapentin (renally dosed), tylenol, will increase Elavil to 50mg qHS 12. : hx of hematuria with recurrent dysuria will recheck UA and give one time dose Diflucan 12. Dispo: tbd Allergies Coded Allergies: aspirin (Verified Allergy, Severe, ANAPHYLAXIS, 01/07/19) Contrast Media (Verified Allergy, Unknown, itching for days, 11/19/18) atenolol (Verified Adverse Reaction, Intermediate, NAUSEA AND DIZZINESS, 01/07/19) lisinopril (Verified Adverse Reaction, Intermediate, VERY DIZZY, 01/07/19) Vital Signs Vital Signs Date Time Temp Pulse Resp B/P (MAP) Pulse Ox O2 Delivery O2 Flow Rate FiO2 07/27/19 15:33 18 07/27/19 14:00 97.5 78 151/70 (97) 99 Laboratory Data CBC/BMP Laboratory Tests 07/27/19 06:17 Red Blood Count 3.38 L, Mean Corpuscular Volume 89.1, Mean Corpuscular Hemoglobin 27.2, Mean Corpuscular Hemoglobin Concent 30.6 L, Red Cell Distribution Width 16.1 H, Neutrophils (%) (Auto) 73.8 H, Lymphocytes (%) (Auto) 11.6 L, Monocytes (%) (Auto) 6.9 H, Eosinophils (%) (Auto) 6.5 H, Basophils (%) (Auto) 0.7, Neutrophils # (Auto) 4.1, Lymphocytes # (Auto) 0.6 L, Monocytes # (Auto) 0.4, Eosinophils # (Auto) 0.4, Basophils # (Auto) 0.0, Calcium Level 8.0 L Labs 24H Laboratory Tests 2 07/27/19 06:17: Immature Granulocyte % (Auto) 0.5, White Blood Count 5.5, Red Blood Count 3.38L, Hemoglobin 9.2L, Hematocrit 30.1L, Mean Corpuscular Volume 89.1, Mean Corpuscular Hemoglobin 27.2, Mean Corpuscular Hemoglobin Concent 30.6L, Red Cell Distribution Width 16.1H, Platelet Count 223, Neutrophils (%) (Auto) 73.8H, Lymphocytes (%) (Auto) 11.6L, Monocytes (%) (Auto) 6.9H, Eosinophils (%) (Auto) 6.5H, Basophils (%) (Auto) 0.7, Neutrophils # (Auto) 4.1, Lymphocytes # (Auto) 0.6L, Monocytes # (Auto) 0.4, Eosinophils # (Auto) 0.4, Basophils # (Auto) 0.0, Nucleated Red Blood Cells % (auto) 0.0, Anion Gap 7L, Glomerular Filtration Rate 39.4L, Blood Urea Nitrogen 24H, Creatinine 1.41H, Sodium Level 137, Potassium Level 5.0, Chloride Level 108H, Carbon Dioxide Level 22, Calcium Level 8.0L Current Medications Current Medications Current Medications Medications (Trade) Dose Ordered Sig/Marlene Route PRN Reason Start Time Stop Time Status Last Admin Dose Admin Acetaminophen (Tylenol Tab) 1,000 mg TID PO 07/23/19 21:00 07/27/19 15:33 Amitriptyline HCl (Elavil) 25 mg QHS PO 07/24/19 21:00 07/26/19 21:04 Apixaban (Eliquis) 5 mg BID PO 07/31/19 09:00 Apixaban (Eliquis) 10 mg BID PO 07/25/19 09:00 07/30/19 21:00 07/27/19 08:53 Atorvastatin Calcium (Lipitor) 10 mg DAILY PO 07/24/19 09:00 07/27/19 08:53 Bisacodyl (Dulcolax Tab) 5 mg DAILYPRN PRN PO CONSTIPATION 07/23/19 16:30 07/24/19 15:28 DC Calcium Carbonate (Tums) 1,000 mg Q4HP PRN PO HEARTBURN 07/23/19 16:30 Carvedilol (COReg) 6.25 mg BID PO 07/23/19 21:00 07/27/19 08:53 Dextrose (Dextrose 50%) 25 ml ASDIRECTED PRN IV SEE LABEL COMMENTS 07/23/19 16:30 Diphenhydramine HCl (Benadryl) 25 mg Q4HP PRN PO ITCHING 07/23/19 17:45 07/27/19 12:17 Docusate Sodium (Colace) 100 mg BID PO 07/23/19 21:00 07/24/19 15:28 DC 07/24/19 08:37 Gabapentin (Neurontin) 600 mg QHS PO 07/23/19 21:00 07/26/19 21:04 Glucagon (Glucagon) 1 mg ASDIRECTED PRN SC SEE LABEL COMMENTS 07/23/19 16:30 Glucose (Glucose) 16 GM ASDIRECTED PRN PO SEE LABEL COMMENTS 07/23/19 16:30 Home Med (Med Rec Complete!) ASDIRECTED XX 07/23/19 13:30 07/23/19 13:32 DC Insulin Detemir (Levemir Insulin) 10 units QHS SC 07/23/19 21:00 07/25/19 17:50 DC 07/24/19 20:37 Insulin Detemir (Levemir Insulin) 15 units QHS SC 07/25/19 21:00 07/26/19 21:05 Insulin Human Lispro (HumaLOG INSULIN) SEE PROTOCOL TABLE AC SC 07/23/19 17:30 07/27/19 12:12 Insulin Human Lispro (HumaLOG INSULIN) SEE PROTOCOL TABLE QHS SC 07/23/19 21:00 07/26/19 21:06 Levothyroxine Sodium (Synthroid) 100 mcg DAILY@06 PO 07/24/19 06:00 07/27/19 06:42 Magnesium Hydroxide (Milk Of Magnesia) 30 ml DAILYPRN PRN PO CONSTIPATION 07/23/19 16:30 Magnesium Oxide (Mag-Ox) 800 mg BID PO 07/23/19 21:00 07/27/19 08:53 Methadone HCl (Dolophine) 5 mg BID PO 07/23/19 21:00 07/27/19 08:53 Nystatin (Mycostatin Powder, Nystop) under right breast ... BID TOP 07/23/19 21:00 07/27/19 08:54 Oxycodone HCl (Roxicodone, Oxyir) 5 mg 0700,1100,1500,1900 PO 07/25/19 15:00 07/27/19 15:33 Oxycodone HCl (Roxicodone, Oxyir) 5 mg Q4HP PRN PO PAIN 07/23/19 16:30 07/24/19 15:28 DC 07/24/19 06:31 Oxycodone HCl (Roxicodone, Oxyir) 5 mg Q6H PRN PO SEVERE PAIN (PS 8-10) 07/24/19 15:30 07/27/19 03:24 Oxycodone HCl (Roxicodone, Oxyir) 10 mg Q4HP PRN PO SEVERE PAIN (PS 8-10) 07/23/19 16:30 07/24/19 15:28 DC 07/24/19 11:13 Pantoprazole Sodium (Protonix) 40 mg BID PO 07/24/19 21:00 07/27/19 08:53 Pantoprazole Sodium (Protonix) 40 mg DAILY PO 07/24/19 09:00 07/24/19 14:44 DC 07/24/19 08:36 Senna (Senokot) 1 tab QHS PO 07/23/19 21:00 07/24/19 15:28 DC Sodium Chloride (Saline Lock Flush) 10 ml ASDIRECTED PRN IV SEE LABEL COMMENTS 07/23/19 20:15 Sodium Chloride (Saline Lock Flush) 10 ml DAILY IV 07/24/19 09:00 07/26/19 08:13 Trazodone HCl (Desyrel) 25 mg QHSP PRN PO INSOMNIA 07/24/19 15:30 CHRIS RICH MD Jul 27, 2019 16:30
[2019-07-27 20:25] VITALS: BP 143/67
[2019-07-27] MEDS: LEVEMIR (INSULIN DETEMIR) 1 UNITS/0.01ML SC SCH (21:05)
[2019-07-27] MEDS: GABAPENTIN 300 MG CAP PO SCH (21:06)
[2019-07-27] MEDS: diphenhydrAMINE 50 MG CAP PO PRN (21:08)
[2019-07-27] MEDS: AMITRIPTYLINE 50 MG TAB PO SCH (21:08)
[2019-07-28 05:20] VITALS: BP 116/59
[2019-07-28] MEDS: LEVOTHYROXINE 100MCG TABLET (0.1MG) PO SCH (06:36)
[2019-07-28] MEDS: oxyCODONE 5MG TAB PO SCH ×4 (06:36→18:31)
[2019-07-28] MEDS: HumaLOG INSULIN (NovoLOG) PER UNIT SC SCH ×5 (08:20→21:00)
[2019-07-28] MEDS: METHADONE 5 MG TAB (S0109) PO SCH ×2 (08:20→20:32)
[2019-07-28] MEDS: MAGNESIUM OXIDE 400 MG TAB (MAG-OX) PO SCH ×2 (08:21→20:33)
[2019-07-28] MEDS: ATORVASTATIN 10 MG TAB PO SCH (08:21)
[2019-07-28] MEDS: APIXABAN 5 MG TAB (ELIQUIS) PO SCH ×2 (08:21→20:32)
[2019-07-28] MEDS: ACETAMINOPHEN 500 MG TAB PO SCH ×3 (08:21→20:33)
[2019-07-28] MEDS: CARVedilol 6.25 MG TAB PO SCH ×2 (08:22→20:33)
[2019-07-28] MEDS: NYSTATIN 100,000 UNITS/GM TOPICAL PWD 15 GM TOP SCH ×2 (08:22→20:35)
[2019-07-28] MEDS: PANTOPRAZOLE 40MG TAB (PROTONIX) PO SCH ×2 (08:22→20:33)
[2019-07-28] MEDS: diphenhydrAMINE 50 MG CAP PO PRN ×3 (08:30→20:32)
[2019-07-28] MEDS: SODIUM CHLORIDE 0.9% INJ 10 ML SYR IV SCH (09:00)
--- NOTE | 2019-07-28 13:18 | REP ---
REASON: Pain after trauma. COMPARISON: 07/18/2019. Since the prior exam the patient has undergone complete hip prosthetic device placement the femoral and acetabular components of which appear well seated and sell approximated. There is no acute fracture, dislocation, or subluxation. IMPRESSION: Status post DANIEL as described above. Electronically Signed by Samir Sandoval DO 07/28/2019 02:15 P
[2019-07-28] MEDS: oxyCODONE 5MG TAB PO PRN (13:25)
--- NOTE | 2019-07-28 16:58 | IPNPDOC ---
PM&R Progress Note DATE OF SERVICE: Jul 28, 2019 Veneer Gluer Progress Note Subjective: Patient reporting increased left hip pain after twisting it while trying to walk to the bathroom today. REVIEW OF SYSTEMS: The following is a completed review of systems and has been reviewed. Review of systems otherwise unremarkable. PAIN: Patient self reports left hip pain EYES: No recent vision changes EARS, NOSE, & THROAT: No throat pain, or dysphagia, or rhinorrhea CARDIOVASCULAR: Denies chest pain or palpitations PULMONARY: Denies shortness of breath GASTROINTESTINAL: Denies constipation/diarrhea, +colostomy GENITOURINARY:+ intermittent hematuria MUSCULOSKELETAL: left hip fracture NEUROLOGICAL:peripheral polyneuropathy HEMATOLOGICAL: +anemia SKIN: +port and left hip incision PSYCHIATRIC: Unremarkable All other review of systems found to be negative. PHYSICAL EXAMINATION: VITAL SIGNS: Please see below. GENERAL: Pleasant and cooperative. No acute distress. HEENT: PERRL. Extraocular movements intact. Clear conjunctiva CARDIOVASCULAR: Regular rate and rhythm. No murmurs, rubs, or gallops LUNGS: Clear to auscultation bilaterally. No wheezes. No rhonchi ABDOMEN: Soft, nontender, nondistended. Positive bowel sounds. Normal active bowel sounds, +colostomy NEUROLOGICAL: Alert and oriented times three. Cranial nerves II through XII grossly intact. Sensation grossly intact EXTREMITIES: 5\5 strength bilateral upper extremities. 5\5 strength right lower extremity. 5/5 strength left ankle Df and EHL, exam limited due to recent surgery SKIN: left hip incision without induration or ecchymosis ASSESSMENT:68-year-old F with past medical history of recurrent rectal adenocarcinoma who presents status post fall with left hip fracture s.p hemiarthroplasty PLAN: 1. rehab: PT/OT- strenghten/stretch/maintain ROM LE and UE while maintaining hip precautions, advance gait and ADL training 2. Neuro: stable 3. Cardiac: pmh htn c/u home meds- medicine consulted to assist with management 4. Ortho: s/p left hip mark-arthroplasty maintain hip precautions-ortho consulted -hip Xray ordered today due to twisting while walking to the bathroom in attempt to catch her balance 4. resp: encourage incentive spirometry 5. Endo: pmh DM c/u insulin coverage with Levemir -hypothyroidism-c/u SYnthroid 6. Renal: DOTTIE on CKD, monitor and consider gentle IVF 7. Vasc: +LLE DVT s/p IVC filter placed 07-20-19, c/u - full dose 10mg BID x7 days to be followed by 5mg BID 8. Heme: post-op anemia in setting intermittent hematuria s/p 2 units on inpatient, will consider repeat transfusion if <8-stable 9. Hyperkalemia- etiology unclear, possibly due to Methadone use, c/u low potassium diet, will consult renal if worsens 10. Hypomagnesemia- c/u oral supplement 11. Pain: Methadone, oxycodone-scheduled, gabapentin (renally dosed), tylenol, will increase Elavil to 50mg qHS 12. : hx of hematuria with recurrent dysuria will recheck UA, Ucx pending, s/p one time dose Diflucan 12. Dispo: tbd Allergies Coded Allergies: aspirin (Verified Allergy, Severe, ANAPHYLAXIS, 01/07/19) Contrast Media (Verified Allergy, Unknown, itching for days, 11/19/18) atenolol (Verified Adverse Reaction, Intermediate, NAUSEA AND DIZZINESS, ) lisinopril (Verified Adverse Reaction, Intermediate, VERY DIZZY, 01/07/19) Vital Signs Vital Signs Date Time Temp Pulse Resp B/P (MAP) Pulse Ox O2 Delivery O2 Flow Rate FiO2 07/28/19 16:37 18 07/28/19 14:00 97.6 76 97 07/28/19 08:22 116/59 Laboratory Data Labs 24H Laboratory Tests 2 07/27/19 17:13: Bedside Glucose (Misc Panel) 168H 07/27/19 20:23: Bedside Glucose (Misc Panel) 210H 07/28/19 01:17: Urine Color YELLOW, Urine Appearance TURBIDH, Urine pH 9.0, Urine Specific [place] 1.014, Urine Protein 2+H, Urine Glucose (UA) 2+H, Urine Ketones NEGATIVE, Urine Blood 3+H, Urine Nitrite POSITIVEH, Urine Bilirubin NEGATIVE, Urine Urobilinogen 0.2, Urine Leukocyte Esterase 3+H, Urine WBC (Auto) TNTCH, Urine RBC (Auto) TNTCH, Urine Hyaline Casts (Auto) 0, Urine Bacteria (Auto) 1+H, Urine Squamous Epithelial Cells 0, Urine Amorphous Sediment SMALLH, Urine Mucus (Auto) SMALL, Urine Sperm (Auto) 07/28/19 07:17: Bedside Glucose (Misc Panel) 178H 07/28/19 13:02: Bedside Glucose (Misc Panel) 202H 07/28/19 16:46: Bedside Glucose (Misc Panel) 210H Microbiology Microbiology 07/28/19 Urine Culture, Received Pending Current Medications Current Medications Current Medications Medications (Trade) Dose Ordered Sig/Marlene Route PRN Reason Start Time Stop Time Status Last Admin Dose Admin Acetaminophen (Tylenol Tab) 1,000 mg TID PO 07/23/19 21:00 07/28/19 15:39 Amitriptyline HCl (Elavil) 25 mg QHS PO 07/24/19 21:00 07/27/19 17:11 DC 07/26/19 21:04 Amitriptyline HCl (Elavil) 50 mg QHS PO 07/27/19 21:00 07/27/19 21:08 Apixaban (Eliquis) 5 mg BID PO 07/31/19 09:00 Apixaban (Eliquis) 10 mg BID PO 07/25/19 09:00 07/30/19 21:00 07/28/19 08:21 Atorvastatin Calcium (Lipitor) 10 mg DAILY PO 07/24/19 09:00 07/28/19 08:21 Bisacodyl (Dulcolax Tab) 5 mg DAILYPRN PRN PO CONSTIPATION 07/23/19 16:30 07/24/19 15:28 DC Calcium Carbonate (Tums) 1,000 mg Q4HP PRN PO HEARTBURN 07/23/19 16:30 Carvedilol (COReg) 6.25 mg BID PO 07/23/19 21:00 07/28/19 08:22 Dextrose (Dextrose 50%) 25 ml ASDIRECTED PRN IV SEE LABEL COMMENTS 07/23/19 16:30 Diphenhydramine HCl (Benadryl) 25 mg Q4HP PRN PO ITCHING 07/23/19 17:45 07/27/19 17:11 DC 07/27/19 12:17 Diphenhydramine HCl (Benadryl) 50 mg Q4HP PRN PO ITCHING 07/27/19 17:15 07/28/19 14:48 Docusate Sodium (Colace) 100 mg BID PO 07/23/19 21:00 07/24/19 15:28 DC 07/24/19 08:37 Gabapentin (Neurontin) 600 mg QHS PO 07/23/19 21:00 07/27/19 21:06 Glucagon (Glucagon) 1 mg ASDIRECTED PRN SC SEE LABEL COMMENTS 07/23/19 16:30 Glucose (Glucose) 16 GM ASDIRECTED PRN PO SEE LABEL COMMENTS 07/23/19 16:30 Home Med (Med Rec Complete!) ASDIRECTED XX 07/23/19 13:30 07/23/19 13:32 DC Insulin Detemir (Levemir Insulin) 10 units QHS SC 07/23/19 21:00 07/25/19 17:50 DC 07/24/19 20:37 Insulin Detemir (Levemir Insulin) 15 units QHS SC 07/25/19 21:00 07/27/19 21:05 Insulin Human Lispro (HumaLOG INSULIN) SEE PROTOCOL TABLE AC SC 07/23/19 17:30 07/28/19 13:07 Insulin Human Lispro (HumaLOG INSULIN) SEE PROTOCOL TABLE QHS SC 07/23/19 21:00 07/26/19 21:06 Levothyroxine Sodium (Synthroid) 100 mcg DAILY@06 PO 07/24/19 06:00 07/28/19 06:36 Magnesium Hydroxide (Milk Of Magnesia) 30 ml DAILYPRN PRN PO CONSTIPATION 07/23/19 16:30 Magnesium Oxide (Mag-Ox) 800 mg BID PO 07/23/19 21:00 07/28/19 08:21 Methadone HCl (Dolophine) 5 mg BID PO 07/23/19 21:00 07/28/19 08:20 Nystatin (Mycostatin Powder, Nystop) under right breast ... BID TOP 07/23/19 21:00 07/28/19 08:22 Oxycodone HCl (Roxicodone, Oxyir) 5 mg 0700,1100,1500,1900 PO 07/25/19 15:00 07/28/19 15:39 Oxycodone HCl (Roxicodone, Oxyir) 5 mg Q4HP PRN PO PAIN 07/23/19 16:30 07/24/19 15:28 DC 07/24/19 06:31 Oxycodone HCl (Roxicodone, Oxyir) 5 mg Q6H PRN PO SEVERE PAIN (PS 8-10) 07/24/19 15:30 07/28/19 13:25 Oxycodone HCl (Roxicodone, Oxyir) 10 mg Q4HP PRN PO SEVERE PAIN (PS 8-10) 07/23/19 16:30 07/24/19 15:28 DC 07/24/19 11:13 Pantoprazole Sodium (Protonix) 40 mg BID PO 07/24/19 21:00 07/28/19 08:22 Pantoprazole Sodium (Protonix) 40 mg DAILY PO 07/24/19 09:00 07/24/19 14:44 DC 07/24/19 08:36 Senna (Senokot) 1 tab QHS PO 07/23/19 21:00 07/24/19 15:28 DC Sodium Chloride (Saline Lock Flush) 10 ml ASDIRECTED PRN IV SEE LABEL COMMENTS 07/23/19 20:15 Cancel Sodium Chloride (Saline Lock Flush) 10 ml DAILY IV 07/24/19 09:00 07/28/19 10:00 DC 07/26/19 08:13 Trazodone HCl (Desyrel) 25 mg QHSP PRN PO INSOMNIA 07/24/19 15:30 CHRIS RICH MD Jul 28, 2019 16:58
[2019-07-28 20:00] VITALS: BP 155/89
[2019-07-28 20:31] VITALS: BP 156/69
[2019-07-28] MEDS: GABAPENTIN 300 MG CAP PO SCH (20:34)
[2019-07-28] MEDS: AMITRIPTYLINE 50 MG TAB PO SCH (20:34)
[2019-07-28] MEDS: LEVEMIR (INSULIN DETEMIR) 1 UNITS/0.01ML SC SCH (20:34)
[2019-07-29] MEDS: diphenhydrAMINE 50 MG CAP PO PRN ×4 (00:45→22:50)
[2019-07-29] MEDS: LEVOTHYROXINE 100MCG TABLET (0.1MG) PO SCH (06:25)
[2019-07-29] MEDS: oxyCODONE 5MG TAB PO SCH ×4 (06:26→18:04)
[2019-07-29 08:33] LABS: BASO % 0.6 % (0.0-1.0); EOS # 0.3 10^3/uL (0.0-0.5); EOS % 6.7 % (0.0-3.0); HEMATOCRIT 31.2 % (36.0-47.0); HEMOGLOBIN 9.2 g/dl (12.0-15.5); LYMPH # 0.6 10^3/uL (1.5-5.0); LYMPH % 13.1 % (24.0-44.0); MEAN CORPUSCULAR HEMOGLOBIN 27.9 pg (27.0-33.0); MEAN CORPUSCULAR HGB CONC 29.5 g/dl (32.0-36.5); MEAN CORPUSCULAR VOLUME 94.5 fl (80.0-96.0); MONO # 0.4 10^3/uL (0.0-0.8); MONO % 7.3 % (0.0-5.0); NEUTROPHILS # 3.4 10^3/uL (1.5-8.5); NEUTROPHILS % 71.5 % (36.0-66.0); PLATELET COUNT, AUTOMATED 213 10^3/uL (150-450); WHITE BLOOD COUNT 4.8 10^3/uL (4.0-10.0)
[2019-07-29 08:56] LABS: CALCIUM LEVEL 8.3 MG/DL (8.8-10.2); CREATININE FOR GFR 1.53 MG/DL (0.55-1.30); GLOMERULAR FILTRATION RATE 35.8 (>45); POTASSIUM SERUM 5.6 MEQ/L (3.5-5.1)
[2019-07-29] MEDS: HumaLOG INSULIN (NovoLOG) PER UNIT SC SCH ×4 (09:19→22:13)
[2019-07-29] MEDS: MAGNESIUM OXIDE 400 MG TAB (MAG-OX) PO SCH ×2 (09:20→22:11)
[2019-07-29] MEDS: PANTOPRAZOLE 40MG TAB (PROTONIX) PO SCH ×2 (09:20→22:12)
[2019-07-29] MEDS: ATORVASTATIN 10 MG TAB PO SCH (09:20)
[2019-07-29] MEDS: ACETAMINOPHEN 500 MG TAB PO SCH ×3 (09:20→22:13)
[2019-07-29] MEDS: METHADONE 5 MG TAB (S0109) PO SCH ×2 (09:21→22:11)
[2019-07-29] MEDS: CARVedilol 6.25 MG TAB PO SCH ×2 (09:21→22:12)
[2019-07-29] MEDS: APIXABAN 5 MG TAB (ELIQUIS) PO SCH ×2 (09:21→22:12)
[2019-07-29] MEDS: NYSTATIN 100,000 UNITS/GM TOPICAL PWD 15 GM TOP SCH ×2 (09:22→21:00)
[2019-07-29 14:00] VITALS: BP 154/71
--- NOTE | 2019-07-29 17:32 | IPNPDOC ---
PM&R Progress Note DATE OF SERVICE: Jul 29, 2019 Derrick Follower Progress Note Subjective: Patient reporting her pain is slightly better. She is agreeable to staying through the weekend to work on stair negotiation. REVIEW OF SYSTEMS: The following is a completed review of systems and has been reviewed. Review of systems otherwise unremarkable. PAIN: Patient self reports left hip pain EYES: No recent vision changes EARS, NOSE, & THROAT: No throat pain, or dysphagia, or rhinorrhea CARDIOVASCULAR: Denies chest pain or palpitations PULMONARY: Denies shortness of breath GASTROINTESTINAL: Denies constipation/diarrhea, +colostomy GENITOURINARY:+ intermittent hematuria MUSCULOSKELETAL: left hip fracture NEUROLOGICAL:peripheral polyneuropathy HEMATOLOGICAL: +anemia SKIN: +port and left hip incision PSYCHIATRIC: Unremarkable All other review of systems found to be negative. PHYSICAL EXAMINATION: VITAL SIGNS: Please see below. GENERAL: Pleasant and cooperative. No acute distress. HEENT: PERRL. Extraocular movements intact. Clear conjunctiva CARDIOVASCULAR: Regular rate and rhythm. No murmurs, rubs, or gallops LUNGS: Clear to auscultation bilaterally. No wheezes. No rhonchi ABDOMEN: Soft, nontender, nondistended. Positive bowel sounds. Normal active bowel sounds, +colostomy NEUROLOGICAL: Alert and oriented times three. Cranial nerves II through XII grossly intact. Sensation grossly intact EXTREMITIES: 5\5 strength bilateral upper extremities. 5\5 strength right lower extremity. 5/5 strength left ankle Df and EHL, exam limited due to recent surgery SKIN: left hip incision without induration or ecchymosis ASSESSMENT:68-year-old F with past medical history of recurrent rectal adenocarcinoma who presents status post fall with left hip fracture s.p hemiarthroplasty PLAN: 1. rehab: PT/OT- strenghten/stretch/maintain ROM LE and UE while maintaining hip precautions, advance gait and ADL training 2. Neuro: stable 3. Cardiac: pmh htn c/u home meds- medicine consulted to assist with management 4. Ortho: s/p left hip mark-arthroplasty maintain hip precautions-ortho consulted -hip Xray 07-28-19 without new fracture 4. resp: encourage incentive spirometry 5. Endo: pmh DM c/u insulin coverage with Levemir -hypothyroidism-c/u SYnthroid 6. Renal: DOTTIE on CKD, monitor and consider gentle IVF 7. Vasc: +LLE DVT s/p IVC filter placed 07-20-19, c/u - full dose 10mg BID x7 days to be followed by 5mg BID 8. Heme: post-op anemia in setting intermittent hematuria s/p 2 units on inpatient, will consider repeat transfusion if <8-stable 9. Hyperkalemia- etiology unclear, possibly due to Methadone use, c/u low potassium diet, will consult renal if worsens 10. Hypomagnesemia- c/u oral supplement 11. Pain: Methadone, oxycodone-scheduled, gabapentin (renally dosed), tylenol, c/u increased Elavil to 50mg qHS 12. : hx of hematuria with recurrent dysuria UA+, Ucx pending, s/p one time dose Diflucan, no leukocytosis 12. Dispo: tbd Allergies Coded Allergies: aspirin (Verified Allergy, Severe, ANAPHYLAXIS, 01/07/19) Contrast Media (Verified Allergy, Unknown, itching for days, 11/19/18) atenolol (Verified Adverse Reaction, Intermediate, NAUSEA AND DIZZINESS, 01/07/19) lisinopril (Verified Adverse Reaction, Intermediate, VERY DIZZY, 01/07/19) Vital Signs Vital Signs Date Time Temp Pulse Resp B/P (MAP) Pulse Ox O2 Delivery O2 Flow Rate FiO2 07/29/19 16:24 18 07/29/19 14:00 96.5 78 154/71 (98) 98 Laboratory Data CBC/BMP Laboratory Tests 07/29/19 08:03 Labs 24H Laboratory Tests 2 07/28/19 19:50: Bedside Glucose (Misc Panel) 223H 07/29/19 07:19: Bedside Glucose (Misc Panel) 230H 07/29/19 08:03: Immature Granulocyte % (Auto) 0.8, Neutrophils (%) (Auto) 71.5H, Lymphocytes (%) (Auto) 13.1L, Monocytes (%) (Auto) 7.3H, Eosinophils (%) (Auto) 6.7H, Basophils (%) (Auto) 0.6, Neutrophils # (Auto) 3.4, Lymphocytes # (Auto) 0.6L, Monocytes # (Auto) 0.4, Eosinophils # (Auto) 0.3, Basophils # (Auto) 0.0, Nucleated Red Blood Cells % (auto) 0.0, Anion Gap 7L, Glomerular Filtration Rate 35.8L, Calciu m Level 8.3L 07/29/19 12:32: Bedside Glucose (Misc Panel) 160H 07/29/19 16:24: Bedside Glucose (Misc Panel) 152H Microbiology Microbiology 07/28/19 Urine Culture, Received Pending Current Medications Current Medications Current Medications Medications (Trade) Dose Ordered Sig/Marlene Route PRN Reason Start Time Stop Time Status Last Admin Dose Admin Acetaminophen (Tylenol Tab) 1,000 mg TID PO 07/23/19 21:00 07/29/19 15:53 Amitriptyline HCl (Elavil) 25 mg QHS PO 07/24/19 21:00 07/27/19 17:11 DC 07/26/19 21:04 Amitriptyline HCl (Elavil) 50 mg QHS PO 07/27/19 21:00 07/28/19 20:34 Apixaban (Eliquis) 5 mg BID PO 07/31/19 09:00 Apixaban (Eliquis) 10 mg BID PO 07/25/19 09:00 07/30/19 21:00 07/29/19 09:21 Atorvastatin Calcium (Lipitor) 10 mg DAILY PO 07/24/19 09:00 07/29/19 09:20 Bisacodyl (Dulcolax Tab) 5 mg DAILYPRN PRN PO CONSTIPATION 07/23/19 16:30 07/24/19 15:28 DC Calcium Carbonate (Tums) 1,000 mg Q4HP PRN PO HEARTBURN 07/23/19 16:30 Carvedilol (COReg) 6.25 mg BID PO 07/23/19 21:00 07/29/19 09:21 Dextrose (Dextrose 50%) 25 ml ASDIRECTED PRN IV SEE LABEL COMMENTS 07/23/19 16:30 Diphenhydramine HCl (Benadryl) 25 mg Q4HP PRN PO ITCHING 07/23/19 17:45 07/27/19 17:11 DC 07/27/19 12:17 Diphenhydramine HCl (Benadryl) 50 mg Q4HP PRN PO ITCHING 07/27/19 17:15 07/29/19 05:03 Docusate Sodium (Colace) 100 mg BID PO 07/23/19 21:00 07/24/19 15:28 DC 07/24/19 08:37 Gabapentin (Neurontin) 600 mg QHS PO 07/23/19 21:00 07/28/19 20:34 Glucagon (Glucagon) 1 mg ASDIRECTED PRN SC SEE LABEL COMMENTS 07/23/19 16:30 Glucose (Glucose) 16 GM ASDIRECTED PRN PO SEE LABEL COMMENTS 07/23/19 16:30 Home Med (Med Rec Complete!) ASDIRECTED XX 07/23/19 13:30 07/23/19 13:32 DC Insulin Detemir (Levemir Insulin) 10 units QHS SC 07/23/19 21:00 07/25/19 17:50 DC 07/24/19 20:37 Insulin Detemir (Levemir Insulin) 15 units QHS SC 07/25/19 21:00 07/29/19 10:57 DC 07/28/19 20:34 Insulin Detemir (Levemir Insulin) 20 units QHS SC 07/29/19 21:00 Insulin Human Lispro (HumaLOG INSULIN) SEE PROTOCOL TABLE AC SC 07/23/19 17:30 07/29/19 12:51 Insulin Human Lispro (HumaLOG INSULIN) SEE PROTOCOL TABLE QHS SC 07/23/19 21:00 07/26/19 21:06 Levothyroxine Sodium (Synthroid) 100 mcg DAILY@06 PO 07/24/19 06:00 07/29/19 06:25 Magnesium Hydroxide (Milk Of Magnesia) 30 ml DAILYPRN PRN PO CONSTIPATION 07/23/19 16:30 Magnesium Oxide (Mag-Ox) 800 mg BID PO 07/23/19 21:00 07/29/19 09:20 Methadone HCl (Dolophine) 5 mg BID PO 07/23/19 21:00 07/29/19 09:21 Nystatin (Mycostatin Powder, Nystop) under right breast ... BID TOP 07/23/19 21:00 07/29/19 09:22 Oxycodone HCl (Roxicodone, Oxyir) 5 mg 0700,1100,1500,1900 PO 07/25/19 15:00 07/29/19 15:54 Oxycodone HCl (Roxicodone, Oxyir) 5 mg Q4HP PRN PO PAIN 07/23/19 16:30 07/24/19 15:28 DC 07/24/19 06:31 Oxycodone HCl (Roxicodone, Oxyir) 5 mg Q6H PRN PO SEVERE PAIN (PS 8-10) 07/24/19 15:30 07/28/19 13:25 Oxycodone HCl (Roxicodone, Oxyir) 10 mg Q4HP PRN PO SEVERE PAIN (PS 8-10) 07/23/19 16:30 07/24/19 15:28 DC 07/24/19 11:13 Pantoprazole Sodium (Protonix) 40 mg BID PO 07/24/19 21:00 07/29/19 09:20 Pantoprazole Sodium (Protonix) 40 mg DAILY PO 07/24/19 09:00 07/24/19 14:44 DC 07/24/19 08:36 Senna (Senokot) 1 tab QHS PO 07/23/19 21:00 07/24/19 15:28 DC Sodium Chloride (Saline Lock Flush) 10 ml ASDIRECTED PRN IV SEE LABEL COMMENTS 07/23/19 20:15 Cancel Sodium Chloride (Saline Lock Flush) 10 ml DAILY IV 07/24/19 09:00 07/28/19 10:00 DC 07/26/19 08:13 Trazodone HCl (Desyrel) 25 mg QHSP PRN PO INSOMNIA 07/24/19 15:30 CHRIS RICH MD Jul 29, 2019 17:32
[2019-07-29] MEDS ORDERED: SOD POLYSTYRENE SULFONATE SUSP 15 GM/60 ML UD PO ONE (19:00)
[2019-07-29 20:55] VITALS: BP 155/71
[2019-07-29] MEDS: GABAPENTIN 300 MG CAP PO SCH (22:11)
[2019-07-29] MEDS: AMITRIPTYLINE 50 MG TAB PO SCH (22:12)
[2019-07-29] MEDS: LEVEMIR (INSULIN DETEMIR) 1 UNITS/0.01ML SC SCH (22:13)
[2019-07-30 06:10] VITALS: BP 132/64
[2019-07-30] MEDS: LEVOTHYROXINE 100MCG TABLET (0.1MG) PO SCH (06:15)
[2019-07-30] MEDS: oxyCODONE 5MG TAB PO SCH ×4 (06:16→18:02)
[2019-07-30] MEDS: APIXABAN 5 MG TAB (ELIQUIS) PO SCH ×2 (08:28→21:31)
[2019-07-30] MEDS: MAGNESIUM OXIDE 400 MG TAB (MAG-OX) PO SCH ×2 (08:28→21:32)
[2019-07-30] MEDS: ACETAMINOPHEN 500 MG TAB PO SCH ×3 (08:28→21:31)
[2019-07-30] MEDS: METHADONE 5 MG TAB (S0109) PO SCH ×2 (08:28→21:32)
[2019-07-30] MEDS: PANTOPRAZOLE 40MG TAB (PROTONIX) PO SCH ×2 (08:28→21:32)
[2019-07-30] MEDS: ATORVASTATIN 10 MG TAB PO SCH (08:28)
[2019-07-30] MEDS: CARVedilol 6.25 MG TAB PO SCH ×2 (08:29→21:32)
[2019-07-30] MEDS: HumaLOG INSULIN (NovoLOG) PER UNIT SC SCH ×4 (08:29→21:00)
[2019-07-30] MEDS: NYSTATIN 100,000 UNITS/GM TOPICAL PWD 15 GM TOP SCH ×2 (08:30→21:33)
[2019-07-30] MEDS: LevoFLOXacin 750 MG TABLET PO SCH (10:53)
[2019-07-30] MEDS: LACTOBACILLUS ACIDOPHILUS CAP (BACID) PO SCH ×3 (10:53→21:32)
[2019-07-30 11:26] LABS: CALCIUM LEVEL 8.3 MG/DL (8.8-10.2); CREATININE FOR GFR 1.51 MG/DL (0.55-1.30); GLOMERULAR FILTRATION RATE 36.4 (>45); POTASSIUM SERUM 5.4 MEQ/L (3.5-5.1)
[2019-07-30] MEDS ORDERED: hydrOXYzine 25 MG TAB PO ONE (13:00)
[2019-07-30 14:00] VITALS: BP 149/65
[2019-07-30] MEDS ORDERED: SOD POLYSTYRENE SULFONATE SUSP 15 GM/60 ML UD PO ONE (15:00)
[2019-07-30 20:00] VITALS: BP 155/71
[2019-07-30] MEDS: LEVEMIR (INSULIN DETEMIR) 1 UNITS/0.01ML SC SCH (21:31)
[2019-07-30] MEDS: GABAPENTIN 300 MG CAP PO SCH (21:31)
[2019-07-30] MEDS: hydrOXYzine 25 MG TAB PO SCH (21:32)
[2019-07-30] MEDS: AMITRIPTYLINE 50 MG TAB PO SCH (21:33)
[2019-07-30] MEDS: traZODone 25MG PER 1/2 TABLET PO PRN (23:26)
[2019-07-31] MEDS: LEVOTHYROXINE 100MCG TABLET (0.1MG) PO SCH (05:47)
[2019-07-31 06:00] VITALS: BP 115/56
[2019-07-31] MEDS: oxyCODONE 5MG TAB PO SCH ×4 (06:47→18:44)
[2019-07-31 08:10] LABS: CALCIUM LEVEL 7.6 MG/DL (8.8-10.2); CREATININE FOR GFR 1.43 MG/DL (0.55-1.30); GLOMERULAR FILTRATION RATE 38.7 (>45); POTASSIUM SERUM 4.9 MEQ/L (3.5-5.1)
[2019-07-31] MEDS: HumaLOG INSULIN (NovoLOG) PER UNIT SC SCH ×4 (09:28→21:24)
[2019-07-31] MEDS: APIXABAN 5 MG TAB (ELIQUIS) PO SCH ×2 (09:28→21:20)
[2019-07-31] MEDS: LACTOBACILLUS ACIDOPHILUS CAP (BACID) PO SCH ×3 (09:28→21:22)
[2019-07-31] MEDS: ATORVASTATIN 10 MG TAB PO SCH (09:28)
[2019-07-31] MEDS: hydrOXYzine 25 MG TAB PO SCH ×3 (09:28→21:22)
[2019-07-31] MEDS: CARVedilol 6.25 MG TAB PO SCH ×2 (09:28→21:21)
[2019-07-31] MEDS: METHADONE 5 MG TAB (S0109) PO SCH ×2 (09:28→21:23)
[2019-07-31] MEDS: ACETAMINOPHEN 500 MG TAB PO SCH ×3 (09:29→21:22)
[2019-07-31] MEDS: PANTOPRAZOLE 40MG TAB (PROTONIX) PO SCH ×2 (09:29→21:22)
[2019-07-31] MEDS: MAGNESIUM OXIDE 400 MG TAB (MAG-OX) PO SCH ×2 (09:29→21:23)
[2019-07-31] MEDS: NYSTATIN 100,000 UNITS/GM TOPICAL PWD 15 GM TOP SCH ×2 (09:30→21:25)
[2019-07-31 14:00] VITALS: BP 130/68
[2019-07-31 20:20] VITALS: BP 142/72
[2019-07-31] MEDS: AMITRIPTYLINE 50 MG TAB PO SCH (21:23)
[2019-07-31] MEDS: GABAPENTIN 300 MG CAP PO SCH (21:23)
[2019-07-31] MEDS: LEVEMIR (INSULIN DETEMIR) 1 UNITS/0.01ML SC SCH (21:25)
[2019-08-01 06:05] VITALS: BP 124/60
[2019-08-01] MEDS: LevoFLOXacin 750 MG TABLET PO SCH (06:40)
[2019-08-01] MEDS: LEVOTHYROXINE 100MCG TABLET (0.1MG) PO SCH (06:40)
[2019-08-01] MEDS: oxyCODONE 5MG TAB PO SCH ×4 (06:41→18:52)
[2019-08-01] MEDS: NYSTATIN 100,000 UNITS/GM TOPICAL PWD 15 GM TOP SCH ×2 (09:00→20:55)
[2019-08-01] MEDS: HumaLOG INSULIN (NovoLOG) PER UNIT SC SCH ×4 (10:24→21:00)
[2019-08-01] MEDS: hydrOXYzine 25 MG TAB PO SCH ×3 (10:24→20:53)
[2019-08-01] MEDS: PANTOPRAZOLE 40MG TAB (PROTONIX) PO SCH ×2 (10:24→20:53)
[2019-08-01] MEDS: LACTOBACILLUS ACIDOPHILUS CAP (BACID) PO SCH ×3 (10:24→20:53)
[2019-08-01] MEDS: APIXABAN 5 MG TAB (ELIQUIS) PO SCH ×2 (10:24→20:52)
[2019-08-01] MEDS: METHADONE 5 MG TAB (S0109) PO SCH ×2 (10:24→20:53)
[2019-08-01] MEDS: ACETAMINOPHEN 500 MG TAB PO SCH ×3 (10:25→20:52)
[2019-08-01] MEDS: ATORVASTATIN 10 MG TAB PO SCH (10:25)
[2019-08-01] MEDS: MAGNESIUM OXIDE 400 MG TAB (MAG-OX) PO SCH ×2 (10:26→20:52)
[2019-08-01] MEDS: CARVedilol 6.25 MG TAB PO SCH ×2 (10:27→20:54)
[2019-08-01 14:00] VITALS: BP 127/59
[2019-08-01 20:20] VITALS: BP 114/53
[2019-08-01] MEDS: GABAPENTIN 300 MG CAP PO SCH (20:53)
[2019-08-01] MEDS: AMITRIPTYLINE 50 MG TAB PO SCH (20:53)
[2019-08-01] MEDS: LEVEMIR (INSULIN DETEMIR) 1 UNITS/0.01ML SC SCH (20:54)
[2019-08-02 05:30] VITALS: BP 157/69
[2019-08-02] MEDS: LEVOTHYROXINE 100MCG TABLET (0.1MG) PO SCH (06:02)
[2019-08-02] MEDS: oxyCODONE 5MG TAB PO SCH ×4 (06:02→19:09)
[2019-08-02] MEDS: HumaLOG INSULIN (NovoLOG) PER UNIT SC SCH ×4 (08:36→21:00)
[2019-08-02] MEDS: ATORVASTATIN 10 MG TAB PO SCH (08:37)
[2019-08-02] MEDS: LACTOBACILLUS ACIDOPHILUS CAP (BACID) PO SCH ×3 (08:37→21:32)
[2019-08-02] MEDS: MAGNESIUM OXIDE 400 MG TAB (MAG-OX) PO SCH ×2 (08:38→21:32)
[2019-08-02] MEDS: ACETAMINOPHEN 500 MG TAB PO SCH ×3 (08:38→21:31)
[2019-08-02] MEDS: CARVedilol 6.25 MG TAB PO SCH ×2 (08:38→21:33)
[2019-08-02] MEDS: METHADONE 5 MG TAB (S0109) PO SCH ×2 (08:38→21:33)
[2019-08-02] MEDS: PANTOPRAZOLE 40MG TAB (PROTONIX) PO SCH ×2 (08:38→21:33)
[2019-08-02] MEDS: hydrOXYzine 25 MG TAB PO SCH ×3 (08:38→21:32)
[2019-08-02] MEDS: APIXABAN 5 MG TAB (ELIQUIS) PO SCH ×2 (08:38→21:31)
[2019-08-02] MEDS: NYSTATIN 100,000 UNITS/GM TOPICAL PWD 15 GM TOP SCH ×2 (08:39→21:34)
[2019-08-02 14:00] VITALS: BP 119/60
[2019-08-02 20:00] VITALS: BP 170/77
[2019-08-02] MEDS: GABAPENTIN 300 MG CAP PO SCH (21:32)
[2019-08-02] MEDS: AMITRIPTYLINE 50 MG TAB PO SCH (21:33)
[2019-08-02] MEDS: LEVEMIR (INSULIN DETEMIR) 1 UNITS/0.01ML SC SCH (21:34)
[2019-08-02 22:00] VITALS: BP 150/78
[2019-08-03] VITALS (7 sets, daily range): BP systolic 123–158; BP diastolic 60–86
[2019-08-03] MEDS: LEVOTHYROXINE 100MCG TABLET (0.1MG) PO SCH (06:09)
[2019-08-03] MEDS: oxyCODONE 5MG TAB PO SCH ×4 (06:09→18:45)
[2019-08-03] MEDS: LevoFLOXacin 750 MG TABLET PO SCH (06:10)
[2019-08-03 06:59] LABS: BASO % 0.5 % (0.0-1.0); EOS # 0.4 10^3/uL (0.0-0.5); EOS % 7.9 % (0.0-3.0); HEMOGLOBIN 7.3 g/dl (12.0-15.5); LYMPH # 0.8 10^3/uL (1.5-5.0); LYMPH % 17.4 % (24.0-44.0); MEAN CORPUSCULAR HEMOGLOBIN 27.3 pg (27.0-33.0); MEAN CORPUSCULAR HGB CONC 30.4 g/dl (32.0-36.5); MEAN CORPUSCULAR VOLUME 89.9 fl (80.0-96.0); MONO # 0.3 10^3/uL (0.0-0.8); MONO % 7.5 % (0.0-5.0); NEUTROPHILS # 2.9 10^3/uL (1.5-8.5); NEUTROPHILS % 65.1 % (36.0-66.0); PLATELET COUNT, AUTOMATED 228 10^3/uL (150-450); RED BLOOD COUNT 2.67 10^6/uL (4.00-5.40); WHITE BLOOD COUNT 4.4 10^3/uL (4.0-10.0)
[2019-08-03 07:18] LABS: CALCIUM LEVEL 7.9 MG/DL (8.8-10.2); CREATININE FOR GFR 1.41 MG/DL (0.55-1.30); GLOMERULAR FILTRATION RATE 39.4 (>45); POTASSIUM SERUM 5.2 MEQ/L (3.5-5.1)
[2019-08-03] MEDS: ATORVASTATIN 10 MG TAB PO SCH (08:31)
[2019-08-03] MEDS: LACTOBACILLUS ACIDOPHILUS CAP (BACID) PO SCH ×3 (08:31→22:01)
[2019-08-03] MEDS: APIXABAN 5 MG TAB (ELIQUIS) PO SCH (08:31)
[2019-08-03] MEDS: hydrOXYzine 25 MG TAB PO SCH ×3 (08:31→22:01)
[2019-08-03] MEDS: METHADONE 5 MG TAB (S0109) PO SCH ×2 (08:31→22:00)
[2019-08-03] MEDS: PANTOPRAZOLE 40MG TAB (PROTONIX) PO SCH ×2 (08:31→22:02)
[2019-08-03] MEDS: CARVedilol 6.25 MG TAB PO SCH ×2 (08:31→22:01)
[2019-08-03] MEDS: MAGNESIUM OXIDE 400 MG TAB (MAG-OX) PO SCH ×2 (08:32→22:02)
[2019-08-03] MEDS: NYSTATIN 100,000 UNITS/GM TOPICAL PWD 15 GM TOP SCH ×2 (08:32→21:00)
[2019-08-03] MEDS: ACETAMINOPHEN 500 MG TAB PO SCH ×3 (08:32→22:01)
[2019-08-03] MEDS: HumaLOG INSULIN (NovoLOG) PER UNIT SC SCH ×4 (08:33→21:00)
[2019-08-03 14:42] LABS: HEMATOCRIT 23.6 % (36.0-47.0); HEMOGLOBIN 7.5 g/dl (12.0-15.5); MEAN CORPUSCULAR HEMOGLOBIN 28.5 pg (27.0-33.0); MEAN CORPUSCULAR HGB CONC 31.8 g/dl (32.0-36.5); MEAN CORPUSCULAR VOLUME 89.7 fl (80.0-96.0); PLATELET COUNT, AUTOMATED 244 10^3/uL (150-450); RED BLOOD COUNT 2.63 10^6/uL (4.00-5.40); WHITE BLOOD COUNT 6.1 10^3/uL (4.0-10.0)
[2019-08-03] MEDS ORDERED: diphenhydrAMINE INJ 50MG/ML VIAL (J1200) IM ONE (19:00)
[2019-08-03] MEDS ORDERED: FUROSEMIDE 20 MG/2 ML VIAL (J1940) IV ONE (20:00)
[2019-08-03] MEDS: LEVEMIR (INSULIN DETEMIR) 1 UNITS/0.01ML SC SCH (22:00)
[2019-08-03] MEDS: GABAPENTIN 300 MG CAP PO SCH (22:02)
[2019-08-03] MEDS: AMITRIPTYLINE 50 MG TAB PO SCH (22:02)
[2019-08-04] VITALS (8 sets, daily range): BP systolic 118–152; BP diastolic 55–77
[2019-08-04] MEDS ORDERED: SODIUM CHLORIDE 0.9% INJ 10 ML SYR IV PRN (02:45)
[2019-08-04] MEDS: LEVOTHYROXINE 100MCG TABLET (0.1MG) PO SCH (05:32)
[2019-08-04] MEDS: oxyCODONE 5MG TAB PO SCH ×4 (06:24→19:02)
[2019-08-04 07:26] LABS: BASO % 0.8 % (0.0-1.0); EOS # 0.4 10^3/uL (0.0-0.5); EOS % 7.5 % (0.0-3.0); HEMATOCRIT 30.3 % (36.0-47.0); LYMPH # 0.7 10^3/uL (1.5-5.0); LYMPH % 12.4 % (24.0-44.0); MEAN CORPUSCULAR HEMOGLOBIN 28.4 pg (27.0-33.0); MEAN CORPUSCULAR VOLUME 88.9 fl (80.0-96.0); MONO # 0.5 10^3/uL (0.0-0.8); MONO % 9.2 % (0.0-5.0); NEUTROPHILS # 3.6 10^3/uL (1.5-8.5); NEUTROPHILS % 67.7 % (36.0-66.0); PLATELET COUNT, AUTOMATED 237 10^3/uL (150-450); RED BLOOD COUNT 3.41 10^6/uL (4.00-5.40); WHITE BLOOD COUNT 5.3 10^3/uL (4.0-10.0)
[2019-08-04 07:34] LABS: HEMOGLOBIN 9.7 g/dl (12.0-15.5)
[2019-08-04 07:55] LABS: CREATININE FOR GFR 1.51 MG/DL (0.55-1.30); GLOMERULAR FILTRATION RATE 36.3 (>39); POTASSIUM SERUM 5.3 MEQ/L (3.5-5.1)
[2019-08-04] MEDS: hydrOXYzine 25 MG TAB PO SCH ×3 (08:25→20:19)
[2019-08-04] MEDS: ACETAMINOPHEN 500 MG TAB PO SCH ×3 (08:25→20:20)
[2019-08-04] MEDS: HumaLOG INSULIN (NovoLOG) PER UNIT SC SCH ×4 (08:25→20:06)
[2019-08-04] MEDS: ATORVASTATIN 10 MG TAB PO SCH (08:26)
[2019-08-04] MEDS: METHADONE 5 MG TAB (S0109) PO SCH ×2 (08:26→20:19)
[2019-08-04] MEDS: PANTOPRAZOLE 40MG TAB (PROTONIX) PO SCH ×2 (08:26→20:19)
[2019-08-04] MEDS: MAGNESIUM OXIDE 400 MG TAB (MAG-OX) PO SCH ×2 (08:26→20:19)
[2019-08-04] MEDS: CARVedilol 6.25 MG TAB PO SCH ×2 (08:26→20:21)
[2019-08-04] MEDS: LACTOBACILLUS ACIDOPHILUS CAP (BACID) PO SCH ×3 (08:26→20:19)
[2019-08-04] MEDS: NYSTATIN 100,000 UNITS/GM TOPICAL PWD 15 GM TOP SCH ×2 (08:27→20:21)
[2019-08-04] MEDS: SODIUM CHLORIDE 0.9% INJ 10 ML SYR IV SCH (08:27)
[2019-08-04] MEDS ORDERED: SOD POLYSTYRENE SULFONATE SUSP 15 GM/60 ML UD PO ONE (12:00)
--- NOTE | 2019-08-04 15:05 | IPNPDOC ---
PM&R Progress Note DATE OF SERVICE: Jul 30, 2019 Store Person Progress Note Subjective: Patient reporting benadryl is not helping her itching and is wondering if she can try something else. REVIEW OF SYSTEMS: The following is a completed review of systems and has been reviewed. Review of systems otherwise unremarkable. PAIN: Patient self reports left hip pain EYES: No recent vision changes EARS, NOSE, & THROAT: No throat pain, or dysphagia, or rhinorrhea CARDIOVASCULAR: Denies chest pain or palpitations PULMONARY: Denies shortness of breath GASTROINTESTINAL: Denies constipation/diarrhea, +colostomy GENITOURINARY:+ intermittent hematuria MUSCULOSKELETAL: left hip fracture NEUROLOGICAL:peripheral polyneuropathy HEMATOLOGICAL: +anemia SKIN: +port and left hip incision PSYCHIATRIC: Unremarkable All other review of systems found to be negative. PHYSICAL EXAMINATION: VITAL SIGNS: Please see below. GENERAL: Pleasant and cooperative. No acute distress. HEENT: PERRL. Extraocular movements intact. Clear conjunctiva CARDIOVASCULAR: Regular rate and rhythm. No murmurs, rubs, or gallops LUNGS: Clear to auscultation bilaterally. No wheezes. No rhonchi ABDOMEN: Soft, nontender, nondistended. Positive bowel sounds. Normal active bowel sounds, +colostomy NEUROLOGICAL: Alert and oriented times three. Cranial nerves II through XII gr ossly intact. Sensation grossly intact EXTREMITIES: 5\5 strength bilateral upper extremities. 5\5 strength right lower extremity. 5/5 strength left ankle Df and EHL, exam limited due to recent surgery SKIN: left hip incision without induration or ecchymosis ASSESSMENT:68-year-old F with past medical history of recurrent rectal adenocarcinoma who presents status post fall with left hip fracture s.p hemiarthroplasty PLAN: 1. rehab: PT/OT- strenghten/stretch/maintain ROM LE and UE while maintaining hip precautions, advance gait and ADL training 2. Neuro: stable 3. Cardiac: pmh htn c/u home meds- medicine consulted to assist with management 4. Ortho: s/p left hip mark-arthroplasty maintain hip precautions-ortho consulted -hip Xray 07-28-19 without new fracture 4. resp: encourage incentive spirometry 5. Endo: pmh DM c/u insulin coverage with Levemir -hypothyroidism-c/u SYnthroid 6. Renal: DOTTIE on CKD, monitor and consider gentle IVF 7. Vasc: +LLE DVT s/p IVC filter placed 07-20-19, c/u - full dose 10mg BID x7 days to be followed by 5mg BID 8. Heme: post-op anemia in setting intermittent hematuria s/p 2 units on inpatient, will consider repeat transfusion if <8-stable 9. Hyperkalemia- etiology unclear, possibly due to Methadone use, c/u low potassium diet, will consult renal if worsens 10. Hypomagnesemia- c/u oral supplement 11. Pain: Methadone, oxycodone-scheduled, gabapentin (renally dosed), tylenol, c/u increased Elavil to 50mg qHS -will trial hydroxyzine for itching, d/c benadryl 12. : hx of hematuria with recurrent dysuria UA+, Ucx +proteus will start 7 Levofloxacin renally dosed 12. Dispo: tbd Allergies Coded Allergies: aspirin (Verified Allergy, Severe, ANAPHYLAXIS, 01/07/19) Contrast Media (Verified Allergy, Unknown, itching for days, 11/19/18) atenolol (Verified Adverse Reaction, Intermediate, NAUSEA AND DIZZINESS, 01/07/19) lisinopril (Verified Adverse Reaction, Intermediate, VERY DIZZY, 01/07/19) Vital Signs Vital Signs Date Time Temp Pulse Resp B/P (MAP) Pulse Ox O2 Delivery O2 Flow Rate FiO2 08/04/19 11:10 16 08/04/19 08:26 75 118/55 08/04/19 06:54 Room Air 08/04/19 05:50 98.1 94 Laboratory Data CBC/BMP Laboratory Tests 08/04/19 07:08 Labs 24H Laboratory Tests 2 08/03/19 16:05: Bedside Glucose (Misc Panel) 121H 08/03/19 20:04: Bedside Glucose (Misc Panel) 214H 08/04/19 05:53: Bedside Glucose (Misc Panel) 183H 08/04/19 07:08: Immature Granulocyte % (Auto) 2.4, Neutrophils (%) (Auto) 67.7H, Lymphocytes (%) (Auto) 12.4L, Monocytes (%) (Auto) 9.2H, Eosinophils (%) (Auto) 7.5H, Basophils (%) (Auto) 0.8, Neutrophils # (Auto) 3.6, Lymphocytes # (Auto) 0.7L, Monocytes # (Auto) 0.5, Eosinophils # (Auto) 0.4, Basophils # (Auto) 0.0, Nucleated Red Blood Cells % (auto) 0.0, Anion Gap 6L, Glomerular Filtration Rate 36.3L, Calcium Level 8.0L 08/04/19 11:32: Bedside Glucose (Misc Panel) 155H Microbiology Microbiology 08/03/19 Stool Occult Blood (CHIDI) - Final, Complete 07/28/19 Urine Culture - Final, Complete Proteus Mirabilis Current Medications Current Medications Current Medications Medications (Trade) Dose Ordered Sig/Marlene Route PRN Reason Start Time Stop Time Status Last Admin Dose Admin Acetaminophen (Tylenol Tab) 1,000 mg TID PO 07/23/19 21:00 08/04/19 08:25 Amitriptyline HCl (Elavil) 25 mg QHS PO 07/24/19 21:00 07/27/19 17:11 DC 07/26/19 21:04 Amitriptyline HCl (Elavil) 50 mg QHS PO 07/27/19 21:00 08/03/19 22:02 Apixaban (Eliquis) 5 mg BID PO 07/31/19 09:00 08/03/19 19:51 DC 08/03/19 08:31 Apixaban (Eliquis) 10 mg BID PO 07/25/19 09:00 07/30/19 21:00 DC 07/30/19 21:31 Atorvastatin Calcium (Lipitor) 10 mg DAILY PO 07/24/19 09:00 08/04/19 08:26 Bisacodyl (Dulcolax Tab) 5 mg DAILYPRN PRN PO CONSTIPATION 07/23/19 16:30 07/24/19 15:28 DC Calcium Carbonate (Tums) 1,000 mg Q4HP PRN PO HEARTBURN 07/23/19 16:30 Carvedilol (COReg) 6.25 mg BID PO 07/23/19 21:00 08/04/19 08:26 Dextrose (Dextrose 50%) 25 ml ASDIRECTED PRN IV SEE LABEL COMMENTS 07/23/19 16:30 Diphenhydramine HCl (Benadryl) 25 mg Q4HP PRN PO ITCHING 07/23/19 17:45 07/27/19 17:11 DC 07/27/19 12:17 Diphenhydramine HCl (Benadryl) 50 mg Q4HP PRN PO ITCHING 07/27/19 17:15 07/30/19 12:48 DC 07/29/19 22:50 Docusate Sodium (Colace) 100 mg BID PO 07/23/19 21:00 07/24/19 15:28 DC 07/24/19 08:37 Gabapentin (Neurontin) 600 mg QHS PO 07/23/19 21:00 08/03/19 22:02 Glucagon (Glucagon) 1 mg ASDIRECTED PRN SC SEE LABEL COMMENTS 07/23/19 16:30 Glucose (Glucose) 16 GM ASDIRECTED PRN PO SEE LABEL COMMENTS 07/23/19 16:30 Heparin Sodium (Heparin (Flush)) 500 units ASDIRECTED PRN IV SEE LABEL COMMENTS 08/04/19 02:45 Heparin Sodium (Heparin (Flush)) 500 units DAILY IV 08/04/19 09:00 08/04/19 08:27 Home Med (Med Rec Complete!) ASDIRECTED XX 07/23/19 13:30 07/23/19 13:32 DC Hydroxyzine HCl (Atarax) 25 mg TID PO 07/30/19 21:00 08/04/19 08:25 Insulin Detemir (Levemir Insulin) 10 units QHS SC 07/23/19 21:00 07/25/19 17:50 DC 07/24/19 20:37 Insulin Detemir (Levemir Insulin) 15 units QHS SC 07/25/19 21:00 07/29/19 10:57 DC 07/28/19 20:34 Insulin Detemir (Levemir Insulin) 20 units QHS SC 07/29/19 21:00 08/03/19 22:00 Insulin Human Lispro (HumaLOG INSULIN) SEE PROTOCOL TABLE AC SC 07/23/19 17:30 08/04/19 12:00 Insulin Human Lispro (HumaLOG INSULIN) SEE PROTOCOL TABLE QHS SC 07/23/19 21:00 07/31/19 21:24 Lactobacillus Acidophilus (Bacid) 1 ea TID PO 07/30/19 09:00 08/04/19 08:26 Levofloxacin (Levaquin) 750 mg Q48H PO 07/30/19 06:00 08/11/19 06:01 08/03/19 06:10 Levothyroxine Sodium (Synthroid) 100 mcg DAILY@06 PO 07/24/19 06:00 08/04/19 05:32 Magnesium Hydroxide (Milk Of Magnesia) 30 ml DAILYPRN PRN PO CONSTIPATION 07/23/19 16:30 Magnesium Oxide (Mag-Ox) 800 mg BID PO 07/23/19 21:00 08/04/19 08:26 Methadone HCl (Dolophine) 5 mg BID PO 07/23/19 21:00 08/04/19 08:26 Miscellaneous (Unresolved Clarification Entry) SEE LABEL COMMENTS DAILY XX 07/31/19 09:00 08/01/19 12:35 DC Nystatin (Mycostatin Powder, Nystop) under right breast ... BID TOP 07/23/19 21:00 08/04/19 08:27 Oxycodone HCl (Roxicodone, Oxyir) 5 mg 0700,1100,1500,1900 PO 07/25/19 15:00 08/04/19 10:40 Oxycodone HCl (Roxicodone, Oxyir) 5 mg Q4HP PRN PO PAIN 07/23/19 16:30 07/24/19 15:28 DC 07/24/19 06:31 Oxycodone HCl (Roxicodone, Oxyir) 5 mg Q6H PRN PO SEVERE PAIN (PS 8-10) 07/24/19 15:30 07/28/19 13:25 Oxycodone HCl (Roxicodone, Oxyir) 10 mg Q4HP PRN PO SEVERE PAIN (PS 8-10) 07/23/19 16:30 07/24/19 15:28 DC 07/24/19 11:13 Pantoprazole Sodium (Protonix) 40 mg BID PO 07/24/19 21:00 08/04/19 08:26 Pantoprazole Sodium (Protonix) 40 mg DAILY PO 07/24/19 09:00 07/24/19 14:44 DC 07/24/19 08:36 Senna (Senokot) 1 tab QHS PO 07/23/19 21:00 07/24/19 15:28 DC Sodium Chloride (Saline Lock Flush) 10 ml ASDIRECTED PRN IV SEE LABEL COMMENTS 10/10/19 20:15 Cancel Sodium Chloride (Saline Lock Flush) 10 ml ASDIRECTED PRN IV SEE LABEL COMMENTS 08/04/19 02:45 Sodium Chloride (Saline Lock Flush) 10 ml DAILY IV 07/24/19 09:00 07/28/19 10:00 DC 07/26/19 08:13 Sodium Chloride (Saline Lock Flush) 10 ml DAILY IV 08/04/19 09:00 08/04/19 08:27 Trazodone HCl (Desyrel) 25 mg QHSP PRN PO INSOMNIA 07/24/19 15:30 07/30/19 23:26 CHRIS RICH MD Aug 04, 2019 15:05
--- NOTE | 2019-08-04 15:09 | IPNPDOC ---
PM&R Progress Note DATE OF SERVICE: Aug 03, 2019 Skills Instructor Progress Note Subjective: Patient is agreeable to receive another blood transfusion. She does not recall getting a transfusion on the inpatient side. She denies feeling weaker. REVIEW OF SYSTEMS: The following is a completed review of systems and has been reviewed. Review of systems otherwise unremarkable. PAIN: Patient self reports left hip pain EYES: No recent vision changes EARS, NOSE, & THROAT: No throat pain, or dysphagia, or rhinorrhea CARDIOVASCULAR: Denies chest pain or palpitations PULMONARY: Denies shortness of breath GASTROINTESTINAL: Denies constipation/diarrhea, +colostomy GENITOURINARY:+ intermittent hematuria MUSCULOSKELETAL: left hip fracture NEUROLOGICAL:peripheral polyneuropathy HEMATOLOGICAL: +anemia SKIN: +port and left hip incision PSYCHIATRIC: Unremarkable All other review of systems found to be negative. PHYSICAL EXAMINATION: VITAL SIGNS: Please see below. GENERAL: Pleasant and cooperative. No acute distress. HEENT: PERRL. Extraocular movements intact. Clear conjunctiva CARDIOVASCULAR: Regular rate and rhythm. No murmurs, rubs, or gallops LUNGS: Clear to auscultation bilaterally. No wheezes. No rhonchi ABDOMEN: Soft, nontender, nondistended. Positive bowel sounds. Normal active bowel sounds, +colostomy NEUROLOGICAL: Alert and oriented times three. Cranial nerves II through XII grossly intact. Sensation grossly intact EXTREMITIES: 5\5 strength bilateral upper extremities. 5\5 strength right lower extremity. 5/5 strength left ankle Df and EHL, exam limited due to recent surgery SKIN: left hip incision, leonardo removed without induration or ecchymosis ASSESSMENT:68-year-old F with past medical history of recurrent rectal adenocarcinoma who presents status post fall with left hip fracture s.p hemiarthroplasty PLAN: 1. rehab: PT/OT- strenghten/stretch/maintain ROM LE and UE while maintaining hip precautions, advance gait and ADL training 2. Neuro: stable 3. Cardiac: pmh htn c/u home meds- medicine consulted to assist with management 4. Ortho: s/p left hip mark-arthroplasty maintain hip precautions-ortho consulte d -hip Xray 07-28-19 without new fracture 4. resp: encourage incentive spirometry 5. Endo: pmh DM c/u insulin coverage with Levemir -hypothyroidism-c/u SYnthroid 6. Renal: DOTTIE on CKD, monitor and consider gentle IVF 7. Vasc: +LLE DVT s/p IVC filter placed 07-20-19, c/u -c/u Eliquis 8. Heme: post-op anemia in setting intermittent hematuria s/p 2 units on inpatient, drop to 7.3 today, will give 2 units and hold eliquis 9. Hyperkalemia- etiology unclear, possibly due to Methadone use, c/u low pot assium diet, will consult renal if worsens 10. Hypomagnesemia- c/u oral supplement 11. Pain: Methadone, oxycodone-scheduled, gabapentin (renally dosed), tylenol, c/u increased Elavil 50mg qHS -c/uhydroxyzine for itching, d/c benadryl 12. : hx of hematuria with recurrent dysuria UA+, Ucx +proteus c/u 7 does total Levofloxacin renally dosed 12. Dispo: 08-05-19 to home, progressing towards goals Allergies Coded Allergies: aspirin (Verified Allergy, Severe, ANAPHYLAXIS, 01/07/19) Contrast Media (Verified Allergy, Unknown, itching for days, 11/19/18) atenolol (Verified Adverse Reaction, Intermediate, NAUSEA AND DIZZINESS, 01/07/19) lisinopril (Verified Adverse Reaction, Intermediate, VERY DIZZY, 01/07/19) Vital Signs Vital Signs Date Time Temp Pulse Resp B/P (MAP) Pulse Ox O2 Delivery O2 Flow Rate FiO2 08/04/19 11:10 16 08/04/19 08:26 75 118/55 08/04/19 06:54 Room Air 08/04/19 05:50 98.1 94 Laboratory Data CBC/BMP Laboratory Tests 08/04/19 07:08 Labs 24H Laboratory Tests 2 08/03/19 16:05: Bedside Glucose (Misc Panel) 121H 08/03/19 20:04: Bedside Glucose (Misc Panel) 214H 08/04/19 05:53: Bedside Glucose (Misc Panel) 183H 08/04/19 07:08: Immature Granulocyte % (Auto) 2.4, Neutrophils (%) (Auto) 67.7H, Lymphocytes (%) (Auto) 12.4L, Monocytes (%) (Auto) 9.2H, Eosinophils (%) (Auto) 7.5H, Basophils (%) (Auto) 0.8, Neutrophils # (Auto) 3.6, Lymphocytes # (Auto) 0.7L, Monocytes # (Auto) 0.5, Eosinophils # (Auto) 0.4, Basophils # (Auto) 0.0, Nucleated Red Blood Cells % (auto) 0.0, Anion Gap 6L, Glomerular Filtration Rate 36.3L, Calcium Level 8.0L 08/04/19 11:32: Bedside Glucose (Misc Panel) 155H Microbiology Microbiology 08/03/19 Stool Occult Blood (CHIDI) - Final, Complete 07/28/19 Urine Culture - Final, Complete Proteus Mirabilis Current Medications Current Medications Current Medications Medications (Trade) Dose Ordered Sig/Marlene Route PRN Reason Start Time Stop Time Status Last Admin Dose Admin Acetaminophen (Tylenol Tab) 1,000 mg TID PO 07/23/19 21:00 08/04/19 08:25 Amitriptyline HCl (Elavil) 25 mg QHS PO 07/24/19 21:00 07/27/19 17:11 DC 07/26/19 21:04 Amitriptyline HCl (Elavil) 50 mg QHS PO 07/27/19 21:00 08/03/19 22:02 Apixaban (Eliquis) 5 mg BID PO 07/31/19 09:00 08/03/19 19:51 DC 08/03/19 08:31 Apixaban (Eliquis) 10 mg BID PO 07/25/19 09:00 07/30/19 21:00 DC 07/30/19 21:31 Atorvastatin Calcium (Lipitor) 10 mg DAILY PO 07/24/19 09:00 08/04/19 08:26 Bisacodyl (Dulcolax Tab) 5 mg DAILYPRN PRN PO CONSTIPATION 07/23/19 16:30 07/24/19 15:28 DC Calcium Carbonate (Tums) 1,000 mg Q4HP PRN PO HEARTBURN 07/23/19 16:30 Carvedilol (COReg) 6.25 mg BID PO 07/23/19 21:00 08/04/19 08:26 Dextrose (Dextrose 50%) 25 ml ASDIRECTED PRN IV SEE LABEL COMMENTS 07/23/19 16:30 Diphenhydramine HCl (Benadryl) 25 mg Q4HP PRN PO ITCHING 07/23/19 17:45 07/27/19 17:11 DC 07/27/19 12:17 Diphenhydramine HCl (Benadryl) 50 mg Q4HP PRN PO ITCHING 07/27/19 17:15 07/30/19 12:48 DC 07/29/19 22:50 Docusate Sodium (Colace) 100 mg BID PO 07/23/19 21:00 07/24/19 15:28 DC 07/24/19 08:37 Gabapentin (Neurontin) 600 mg QHS PO 07/23/19 21:00 08/03/19 22:02 Glucagon (Glucagon) 1 mg ASDIRECTED PRN SC SEE LABEL COMMENTS 07/23/19 16:30 Glucose (Glucose) 16 GM ASDIRECTED PRN PO SEE LABEL COMMENTS 07/23/19 16:30 Heparin Sodium (Heparin (Flush)) 500 units ASDIRECTED PRN IV SEE LABEL COMMENTS 08/04/19 02:45 Heparin Sodium (Heparin (Flush)) 500 units DAILY IV 08/04/19 09:00 08/04/19 08:27 Home Med (Med Rec Complete!) ASDIRECTED XX 07/23/19 13:30 07/23/19 13:32 DC Hydroxyzine HCl (Atarax) 25 mg TID PO 07/30/19 21:00 08/04/19 08:25 Insulin Detemir (Levemir Insulin) 10 units QHS SC 07/23/19 21:00 07/25/19 17:50 DC 07/24/19 20:37 Insulin Detemir (Levemir Insulin) 15 units QHS SC 07/25/19 21:00 07/29/19 10:57 DC 07/28/19 20:34 Insulin Detemir (Levemir Insulin) 20 units QHS SC 07/29/19 21:00 08/03/19 22:00 Insulin Human Lispro (HumaLOG INSULIN) SEE PROTOCOL TABLE AC SC 07/23/19 17:30 08/04/19 12:00 Insulin Human Lispro (HumaLOG INSULIN) SEE PROTOCOL TABLE QHS SC 07/23/19 21:00 07/31/19 21:24 Lactobacillus Acidophilus (Bacid) 1 ea TID PO 07/30/19 09:00 08/04/19 08:26 Levofloxacin (Levaquin) 750 mg Q48H PO 07/30/19 06:00 08/11/19 06:01 08/03/19 06:10 Levothyroxine Sodium (Synthroid) 100 mcg DAILY@06 PO 07/24/19 06:00 08/04/19 05:32 Magnesium Hydroxide (Milk Of Magnesia) 30 ml DAILYPRN PRN PO CONSTIPATION 07/23/19 16:30 Magnesium Oxide (Mag-Ox) 800 mg BID PO 07/23/19 21:00 08/04/19 08:26 Methadone HCl (Dolophine) 5 mg BID PO 07/23/19 21:00 08/04/19 08:26 Miscellaneous (Unresolved Clarification Entry) SEE LABEL COMMENTS DAILY XX 07/31/19 09:00 08/01/19 12:35 DC Nystatin (Mycostatin Powder, Nystop) under right breast ... BID TOP 07/23/19 21:00 08/04/19 08:27 Oxycodone HCl (Roxicodone, Oxyir) 5 mg 0700,1100,1500,1900 PO 07/25/19 15:00 08/04/19 10:40 Oxycodone HCl (Roxicodone, Oxyir) 5 mg Q4HP PRN PO PAIN 07/23/19 16:30 07/24/19 15:28 DC 07/24/19 06:31 Oxycodone HCl (Roxicodone, Oxyir) 5 mg Q6H PRN PO SEVERE PAIN (PS 8-10) 07/24/19 15:30 07/28/19 13:25 Oxycodone HCl (Roxicodone, Oxyir) 10 mg Q4HP PRN PO SEVERE PAIN (PS 8-10) 07/23/19 16:30 07/24/19 15:28 DC 07/24/19 11:13 Pantoprazole Sodium (Protonix) 40 mg BID PO 07/24/19 21:00 08/04/19 08:26 Pantoprazole Sodium (Protonix) 40 mg DAILY PO 07/24/19 09:00 07/24/19 14:44 DC 07/24/19 08:36 Senna (Senokot) 1 tab QHS PO 07/23/19 21:00 07/24/19 15:28 DC Sodium Chloride (Saline Lock Flush) 10 ml ASDIRECTED PRN IV SEE LABEL COMMENTS 07/23/19 20:15 Cancel Sodium Chloride (Saline Lock Flush) 10 ml ASDIRECTED PRN IV SEE LABEL COMMENTS 08/04/19 02:45 Sodium Chloride (Saline Lock Flush) 10 ml DAILY IV 07/24/19 09:00 07/28/19 10:00 DC 07/26/19 08:13 Sodium Chloride (Saline Lock Flush) 10 ml DAILY IV 08/04/19 09:00 08/04/19 08:27 Trazodone HCl (Desyrel) 25 mg QHSP PRN PO INSOMNIA 07/24/19 15:30 07/30/19 23:26 CHRIS RICH MD Aug 04, 2019 15:09
--- NOTE | 2019-08-04 15:11 | IPNPDOC ---
PM&R Progress Note DATE OF SERVICE: Aug 04, 2019 Manager Contract Progress Note Subjective: Patient reporting she feels well today and is looking forward to going home tomorrow. She is agreeable to stay for family training and to monitor her Hgb wh ile off Eliquis. REVIEW OF SYSTEMS: The following is a completed review of systems and has been reviewed. Review of systems otherwise unremarkable. PAIN: Patient self reports left hip pain EYES: No recent vision changes EARS, NOSE, & THROAT: No throat pain, or dysphagia, or rhinorrhea CARDIOVASCULAR: Denies chest pain or palpitations PULMONARY: Denies shortness of breath GASTROINTESTINAL: Denies constipation/diarrhea, +colostomy GENITOURINARY:+ intermittent hematuria MUSCULOSKELETAL: left hip fracture NEUROLOGICAL:peripheral polyneuropathy HEMATOLOGICAL: +anemia SKIN: +port and left hip incision PSYCHIATRIC: Unremarkable All other review of systems found to be negative. PHYSICAL EXAMINATION: VITAL SIGNS: Please see below. GENERAL: Pleasant and cooperative. No acute distress. HEENT: PERRL. Extraocular movements intact. Clear conjunctiva CARDIOVASCULAR: Regular rate and rhythm. No murmurs, rubs, or gallops LUNGS: Clear to auscultation bilaterally. No wheezes. No rhonchi ABDOMEN: Soft, nontender, nondistended. Positive bowel sounds. Normal active bowel sounds, +colostomy NEUROLOGICAL: Alert and oriented times three. Cranial nerves II through XII grossly intact. Sensation grossly intact EXTREMITIES: 5\5 strength bilateral upper extremities. 5\5 strength right lower extremity. 5/5 strength left ankle Df and EHL, exam limited due to recent surgery SKIN: left hip incision, leonardo removed without induration or ecchymosis ASSESSMENT:68-year-old F with past medical history of recurrent rectal adenocarcinoma who presents status post fall with left hip fracture s.p hemia rthroplasty PLAN: 1. rehab: PT/OT- strenghten/stretch/maintain ROM LE and UE while maintaining hip precautions, advance gait and ADL training- room privileges 2. Neuro: stable 3. Cardiac: pmh htn c/u home meds- medicine consulted to assist with management 4. Ortho: s/p left hip mark-arthroplasty maintain hip precautions-ortho consulted -hip Xray 07-28-19 without new fracture 4. resp: encourage incentive spirometry 5. Endo: pmh DM c/u insulin coverage with Levemir -hypothyroidism-c/u SYnthroid 6. Renal: DOTTIE on CKD, monitor and consider gentle IVF 7. Vasc: +LLE DVT s/p IVC filter placed 07-20-19, c/u -c/u Eliquis 8. Heme: post-op anemia in setting intermittent hematuria s/p 2 units on inp atient, dropped to 7.3 s/p 2 units and 9.7 today likley due to chronic hematuria, holding eliquis 9. Hyperkalemia- etiology unclear, possibly due to Methadone use, c/u low potassium diet, will consult renal if worsens -Kayexalate x1 today 10. Hypomagnesemia- c/u oral supplement 11. Pain: Methadone, oxycodone-scheduled, gabapentin (renally dosed), tylenol, c/u increased Elavil 50mg qHS -c/uhydroxyzine for itching, d/c benadryl 12. : hx of hematuria with recurrent dysuria UA+, Ucx +proteus c/u 7 does total Levofloxacin renally dosed 12. Dispo: 08-05-19 Allergies Coded Allergies: aspirin (Verified Allergy, Severe, ANAPHYLAXIS, 01/07/19) Contrast Media (Verified Allergy, Unknown, itching for days, 11/19/18) atenolol (Verified Adverse Reaction, Intermediate, NAUSEA AND DIZZINESS, 01/07/19) lisinopril (Verified Adverse Reaction, Intermediate, VERY DIZZY, 01/07/19) Vital Signs Vital Signs Date Time Temp Pulse Resp B/P (MAP) Pulse Ox O2 Delivery O2 Flow Rate FiO2 08/04/19 11:10 16 08/04/19 08:26 75 118/55 08/04/19 06:54 Room Air 08/04/19 05:50 98.1 94 Laboratory Data CBC/BMP Laboratory Tests 08/04/19 07:08 Labs 24H Laboratory Tests 2 08/03/19 16:05: Bedside Glucose (Misc Panel) 121H 08/03/19 20:04: Bedside Glucose (Misc Panel) 214H 08/04/19 05:53: Bedside Glucose (Misc Panel) 183H 08/04/19 07:08: Immature Granulocyte % (Auto) 2.4, Neutrophils (%) (Auto) 67.7H, Lymphocytes (%) (Auto) 12.4L, Monocytes (%) (Auto) 9.2H, Eosinophils (%) (Auto) 7.5H, Basophils (%) (Auto) 0.8, Neutrophils # (Auto) 3.6, Lymphocytes # (Auto) 0.7L, Monocytes # (Auto) 0.5, Eosinophils # (Auto) 0.4, Basophils # (Auto) 0.0, Nucleated Red Blood Cells % (auto) 0.0, Anion Gap 6L, Glomerular Filtration Rate 36.3L, Calcium Level 8.0L 08/04/19 11:32: Bedside Glucose (Misc Panel) 155H Microbiology Microbiology 08/03/19 Stool Occult Blood (CHIDI) - Final, Complete 07/28/19 Urine Culture - Final, Complete Proteus Mirabilis Current Medications Current Medications Current Medications Medications (Trade) Dose Ordered Sig/Marlene Route PRN Reason Start Time Stop Time Status Last Admin Dose Admin Acetaminophen (Tylenol Tab) 1,000 mg TID PO 07/23/19 21:00 08/04/19 08:25 Amitriptyline HCl (Elavil) 25 mg QHS PO 07/24/19 21:00 07/27/19 17:11 DC 07/26/19 21:04 Amitriptyline HCl (Elavil) 50 mg QHS PO 07/27/19 21:00 08/03/19 22:02 Apixaban (Eliquis) 5 mg BID PO 07/31/19 09:00 08/03/19 19:51 DC 08/03/19 08:31 Apixaban (Eliquis) 10 mg BID PO 07/25/19 09:00 07/30/19 21:00 DC 07/30/19 21:31 Atorvastatin Calcium (Lipitor) 10 mg DAILY PO 07/24/19 09:00 08/04/19 08:26 Bisacodyl (Dulcolax Tab) 5 mg DAILYPRN PRN PO CONSTIPATION 07/23/19 16:30 07/24/19 15:28 DC Calcium Carbonate (Tums) 1,000 mg Q4HP PRN PO HEARTBURN 07/23/19 16:30 Carvedilol (COReg) 6.25 mg BID PO 07/23/19 21:00 08/04/19 08:26 Dextrose (Dextrose 50%) 25 ml ASDIRECTED PRN IV SEE LABEL COMMENTS 07/23/19 16:30 Diphenhydramine HCl (Benadryl) 25 mg Q4HP PRN PO ITCHING 07/23/19 17:45 07/27/19 17:11 DC 07/27/19 12:17 Diphenhydramine HCl (Benadryl) 50 mg Q4HP PRN PO ITCHING 07/27/19 17:15 07/30/19 12:48 DC 07/29/19 22:50 Docusate Sodium (Colace) 100 mg BID PO 07/23/19 21:00 07/24/19 15:28 DC 07/24/19 08:37 Gabapentin (Neurontin) 600 mg QHS PO 07/23/19 21:00 08/03/19 22:02 Glucagon (Glucagon) 1 mg ASDIRECTED PRN SC SEE LABEL COMMENTS 07/23/19 16:30 Glucose (Glucose) 16 GM ASDIRECTED PRN PO SEE LABEL COMMENTS 07/23/19 16:30 Heparin Sodium (Heparin (Flush)) 500 units ASDIRECTED PRN IV SEE LABEL COMMENTS 08/04/19 02:45 Heparin Sodium (Heparin (Flush)) 500 units DAILY IV 08/04/19 09:00 08/04/19 08:27 Home Med (Med Rec Complete!) ASDIRECTED XX 07/23/19 13:30 07/23/19 13:32 DC Hydroxyzine HCl (Atarax) 25 mg TID PO 07/30/19 21:00 08/04/19 08:25 Insulin Detemir (Levemir Insulin) 10 units QHS SC 07/23/19 21:00 07/25/19 17:50 DC 07/24/19 20:37 Insulin Detemir (Levemir Insulin) 15 units QHS SC 07/25/19 21:00 07/29/19 10:57 DC 07/28/19 20:34 Insulin Detemir (Levemir Insulin) 20 units QHS SC 07/29/19 21:00 08/03/19 22:00 Insulin Human Lispro (HumaLOG INSULIN) SEE PROTOCOL TABLE AC SC 07/23/19 17:30 08/04/19 12:00 Insulin Human Lispro (HumaLOG INSULIN) SEE PROTOCOL TABLE QHS SC 07/23/19 21:00 07/31/19 21:24 Lactobacillus Acidophilus (Bacid) 1 ea TID PO 07/30/19 09:00 08/04/19 08:26 Levofloxacin (Levaquin) 750 mg Q48H PO 07/30/19 06:00 08/11/19 06:01 08/03/19 06:10 Levothyroxine Sodium (Synthroid) 100 mcg DAILY@06 PO 07/24/19 06:00 08/04/19 05:32 Magnesium Hydroxide (Milk Of Magnesia) 30 ml DAILYPRN PRN PO CONSTIPATION 07/23/19 16:30 Magnesium Oxide (Mag-Ox) 800 mg BID PO 07/23/19 21:00 08/04/19 08:26 Methadone HCl (Dolophine) 5 mg BID PO 07/23/19 21:00 08/04/19 08:26 Miscellaneous (Unresolved Clarification Entry) SEE LABEL COMMENTS DAILY XX 07/31/19 09:00 08/01/19 12:35 DC Nystatin (Mycostatin Powder, Nystop) under right breast ... BID TOP 07/23/19 21:00 08/04/19 08:27 Oxycodone HCl (Roxicodone, Oxyir) 5 mg 0700,1100,1500,1900 PO 07/25/19 15:00 08/04/19 10:40 Oxycodone HCl (Roxicodone, Oxyir) 5 mg Q4HP PRN PO PAIN 07/23/19 16:30 07/24/19 15:28 DC 07/24/19 06:31 Oxycodone HCl (Roxicodone, Oxyir) 5 mg Q6H PRN PO SEVERE PAIN (PS 8-10) 07/24/19 15:30 07/28/19 13:25 Oxycodone HCl (Roxicodone, Oxyir) 10 mg Q4HP PRN PO SEVERE PAIN (PS 8-10) 07/23/19 16:30 07/24/19 15:28 DC 07/24/19 11:13 Pantoprazole Sodium (Protonix) 40 mg BID PO 07/24/19 21:00 08/04/19 08:26 Pantoprazole Sodium (Protonix) 40 mg DAILY PO 07/24/19 09:00 07/24/19 14:44 DC 07/24/19 08:36 Senna (Senokot) 1 tab QHS PO 07/23/19 21:00 07/24/19 15:28 DC Sodium Chloride (Saline Lock Flush) 10 ml ASDIRECTED PRN IV SEE LABEL COMMENTS 07/23/19 20:15 Cancel Sodium Chloride (Saline Lock Flush) 10 ml ASDIRECTED PRN IV SEE LABEL COMMENTS 08/04/19 02:45 Sodium Chloride (Saline Lock Flush) 10 ml DAILY IV 07/24/19 09:00 07/28/19 10:00 DC 07/26/19 08:13 Sodium Chloride (Saline Lock Flush) 10 ml DAILY IV 08/04/19 09:00 08/04/19 08:27 Trazodone HCl (Desyrel) 25 mg QHSP PRN PO INSOMNIA 07/24/19 15:30 07/30/19 23:26 CHRIS RICH MD Aug 04, 2019 15:11
[2019-08-04] MEDS: AMITRIPTYLINE 50 MG TAB PO SCH (20:19)
[2019-08-04] MEDS: GABAPENTIN 300 MG CAP PO SCH (20:20)
[2019-08-04] MEDS: LEVEMIR (INSULIN DETEMIR) 1 UNITS/0.01ML SC SCH (20:20)
[2019-08-04] MEDS: traZODone 25MG PER 1/2 TABLET PO PRN (20:24)
[2019-08-05] MEDS: LevoFLOXacin 750 MG TABLET PO SCH (05:16)
[2019-08-05] MEDS: LEVOTHYROXINE 100MCG TABLET (0.1MG) PO SCH (05:16)
[2019-08-05 05:35] VITALS: BP 152/71
[2019-08-05] MEDS: oxyCODONE 5MG TAB PO SCH ×4 (06:01→18:30)
[2019-08-05 06:51] LABS: BASO % 0.6 % (0.0-1.0); EOS # 0.5 10^3/uL (0.0-0.5); EOS % 9.8 % (0.0-3.0); HEMOGLOBIN 8.9 g/dl (12.0-15.5); LYMPH # 0.7 10^3/uL (1.5-5.0); LYMPH % 14.8 % (24.0-44.0); MEAN CORPUSCULAR HEMOGLOBIN 28.4 pg (27.0-33.0); MEAN CORPUSCULAR HGB CONC 31.8 g/dl (32.0-36.5); MEAN CORPUSCULAR VOLUME 89.5 fl (80.0-96.0); MONO # 0.4 10^3/uL (0.0-0.8); MONO % 9.2 % (0.0-5.0); NEUTROPHILS # 3.1 10^3/uL (1.5-8.5); NEUTROPHILS % 63.9 % (36.0-66.0); PLATELET COUNT, AUTOMATED 225 10^3/uL (150-450); RED BLOOD COUNT 3.13 10^6/uL (4.00-5.40); WHITE BLOOD COUNT 4.8 10^3/uL (4.0-10.0)
[2019-08-05 07:17] LABS: CREATININE FOR GFR 1.37 MG/DL (0.55-1.30); GLOMERULAR FILTRATION RATE 40.6 (>39); POTASSIUM SERUM 4.7 MEQ/L (3.5-5.1)
[2019-08-05] MEDS: HumaLOG INSULIN (NovoLOG) PER UNIT SC SCH ×4 (07:54→21:00)
[2019-08-05] MEDS: NYSTATIN 100,000 UNITS/GM TOPICAL PWD 15 GM TOP SCH ×2 (09:00→21:00)
[2019-08-05] MEDS: ATORVASTATIN 10 MG TAB PO SCH ×2 (09:00→09:01)
[2019-08-05] MEDS: PANTOPRAZOLE 40MG TAB (PROTONIX) PO SCH ×2 (09:01→21:46)
[2019-08-05] MEDS: LACTOBACILLUS ACIDOPHILUS CAP (BACID) PO SCH ×3 (09:01→21:46)
[2019-08-05] MEDS: METHADONE 5 MG TAB (S0109) PO SCH ×2 (09:01→21:51)
[2019-08-05] MEDS: hydrOXYzine 25 MG TAB PO SCH ×3 (09:01→21:46)
[2019-08-05] MEDS: CARVedilol 6.25 MG TAB PO SCH ×2 (09:01→21:46)
[2019-08-05] MEDS: MAGNESIUM OXIDE 400 MG TAB (MAG-OX) PO SCH ×2 (09:02→21:46)
[2019-08-05] MEDS: ACETAMINOPHEN 500 MG TAB PO SCH ×3 (09:02→21:47)
[2019-08-05] MEDS: SODIUM CHLORIDE 0.9% INJ 10 ML SYR IV SCH (09:04)
--- NOTE | 2019-08-05 10:21 | REP ---
Two views left hip: Indication: Left hip pain. Comparison: 07/28/2019. Findings: Surgical hardware is redemonstrated without evidence of loosening. No acute fractures are present. Atherosclerotic disease is noted. Impression: No acute fracture or hardware failure. Electronically Signed by Gustavo Hogan DO 08/05/2019 10:13 A
[2019-08-05 14:00] VITALS: BP 135/63
[2019-08-05 19:20] VITALS: BP 191/85
[2019-08-05] MEDS: AMITRIPTYLINE 50 MG TAB PO SCH (21:44)
[2019-08-05 21:46] VITALS: BP 152/80
[2019-08-05] MEDS: traZODone 25MG PER 1/2 TABLET PO PRN (21:46)
[2019-08-05] MEDS: GABAPENTIN 300 MG CAP PO SCH (21:46)
[2019-08-05] MEDS: LEVEMIR (INSULIN DETEMIR) 1 UNITS/0.01ML SC SCH (21:48)
[2019-08-06 06:00] VITALS: BP 122/68
[2019-08-06] MEDS: LEVOTHYROXINE 100MCG TABLET (0.1MG) PO SCH (06:19)
[2019-08-06] MEDS: oxyCODONE 5MG TAB PO SCH ×2 (06:19→11:16)
[2019-08-06 07:28] LABS: BASO % 0.8 % (0.0-1.0); EOS # 0.4 10^3/uL (0.0-0.5); EOS % 7.9 % (0.0-3.0); HEMATOCRIT 29.6 % (36.0-47.0); HEMOGLOBIN 9.1 g/dl (12.0-15.5); LYMPH # 0.8 10^3/uL (1.5-5.0); MEAN CORPUSCULAR HEMOGLOBIN 28.1 pg (27.0-33.0); MEAN CORPUSCULAR HGB CONC 30.7 g/dl (32.0-36.5); MEAN CORPUSCULAR VOLUME 91.4 fl (80.0-96.0); MONO # 0.4 10^3/uL (0.0-0.8); MONO % 9.1 % (0.0-5.0); NEUTROPHILS # 3.1 10^3/uL (1.5-8.5); NEUTROPHILS % 63.5 % (36.0-66.0); PLATELET COUNT, AUTOMATED 215 10^3/uL (150-450); RED BLOOD COUNT 3.24 10^6/uL (4.00-5.40); WHITE BLOOD COUNT 4.8 10^3/uL (4.0-10.0)
[2019-08-06 07:54] LABS: CALCIUM LEVEL 7.8 MG/DL (8.8-10.2); CREATININE FOR GFR 1.4 MG/DL (0.55-1.30); GLOMERULAR FILTRATION RATE 39.6 (>39); POTASSIUM SERUM 5.3 MEQ/L (3.5-5.1)
[2019-08-06] MEDS: METHADONE 5 MG TAB (S0109) PO SCH (08:51)
[2019-08-06 08:52] VITALS: BP 122/68
[2019-08-06] MEDS: LACTOBACILLUS ACIDOPHILUS CAP (BACID) PO SCH (08:52)
[2019-08-06] MEDS: CARVedilol 6.25 MG TAB PO SCH (08:52)
[2019-08-06] MEDS: PANTOPRAZOLE 40MG TAB (PROTONIX) PO SCH (08:52)
[2019-08-06] MEDS: ATORVASTATIN 10 MG TAB PO SCH ×2 (08:53→09:00)
[2019-08-06] MEDS: hydrOXYzine 25 MG TAB PO SCH (08:53)
[2019-08-06] MEDS: MAGNESIUM OXIDE 400 MG TAB (MAG-OX) PO SCH (08:53)
[2019-08-06] MEDS: ACETAMINOPHEN 500 MG TAB PO SCH (08:55)
[2019-08-06] MEDS: HumaLOG INSULIN (NovoLOG) PER UNIT SC SCH ×2 (08:57→12:00)
[2019-08-06] MEDS: NYSTATIN 100,000 UNITS/GM TOPICAL PWD 15 GM TOP SCH (09:03)
[2019-08-06] MEDS: SODIUM CHLORIDE 0.9% INJ 10 ML SYR IV SCH (09:45)
[2019-08-06] MEDS ORDERED: INSUDET SC (11:21)
[2019-08-06] MEDS ORDERED: ATOR1TAB19 PO (11:21)
[2019-08-06] MEDS ORDERED: LEVA750T7 PO (11:21)
[2019-08-06] MEDS ORDERED: GABA-843 PO (11:21)
[2019-08-06] MEDS ORDERED: RISATAB3 PO (11:21)
[2019-08-06] MEDS ORDERED: OXYCO5TA PO (11:21)
[2019-08-06] MEDS ORDERED: HYDR-3363 PO (11:21)
[2019-08-06] MEDS ORDERED: AMIT50TA PO (11:21)
[2019-08-06] MEDS ORDERED: CARV6.25 PO (11:21)
[2019-08-06] MEDS ORDERED: LEVO100T5 PO (11:21)
[2019-08-06] MEDS ORDERED: SOD POLYSTYRENE SULFONATE SUSP 15 GM/60 ML UD PO ONE (12:00)
[2019-08-20] MEDS ORDERED: TRES1INJ2 SC (14:54)
[2019-08-20] MEDS ORDERED: ENOX40IN3 SC (14:54)
--- NOTE | 2019-09-07 11:25 | IPNPDOC ---
PM&R Progress Note DATE OF SERVICE: Aug 05, 2019 Pathology Collector Progress Note Subjective: Patient reporting she is feeling stronger and feels comfortable with her room privileges. REVIEW OF SYSTEMS: The following is a completed review of systems and has been reviewed. Review of systems otherwise unremarkable. PAIN: Patient self reports left hip pain EYES: No recent vision changes EARS, NOSE, & THROAT: No throat pain, or dysphagia, or rhinorrhea CARDIOVASCULAR: Denies chest pain or palpitations PULMONARY: Denies shortness of breath GASTROINTESTINAL: Denies constipation/diarrhea, +colostomy GENITOURINARY:+ intermittent hematuria MUSCULOSKELETAL: left hip fracture NEUROLOGICAL:peripheral polyneuropathy HEMATOLOGICAL: +anemia SKIN: +port and left hip incision PSYCHIATRIC: Unremarkable All other review of systems found to be negative. PHYSICAL EXAMINATION: VITAL SIGNS: Please see below. GENERAL: Pleasant and cooperative. No acute distress. HEENT: PERRL. Extraocular movements intact. Clear conjunctiva CARDIOVASCULAR: Regular rate and rhythm. No murmurs, rubs, or gallops LUNGS: Clear to auscultation bilaterally. No wheezes. No rhonchi ABDOMEN: Soft, nontender, nondistended. Positive bowel sounds. Normal active bowel sounds, +colostomy NEUROLOGICAL: Alert and oriented times three. Cranial nerves II through XII grossly intact. Sensation grossly intact EXTREMITIES: 5\5 strength bilateral upper extremities. 5\5 strength right lower extremity. 5/5 strength left ankle Df and EHL, exam limited due to recent surgery SKIN: left hip incision, leonardo removed without induration or ecchymosis ASSESSMENT:68-year-old F with past medical history of recurrent rectal adenocarcinoma who presents status post fall with left hip fracture s.p hemiarthroplasty PLAN: 1. rehab: PT/OT- strenghten/stretch/maintain ROM LE and UE while maintaining hip precautions, advance gait and ADL training- room privileges 2. Neuro: stable 3. Cardiac: pmh htn c/u home meds- medicine consulted to assist with management 4. Ortho: s/p left hip mark-arthroplasty maintain hip precautions-ortho consulted -hip Xray 07-28-19 without new fracture 4. resp: encourage incentive spirometry 5. Endo: pmh DM c/u insulin coverage with Levemir -hypothyroidism-c/u SYnthroid 6. Renal: DOTTIE on CKD, monitor and consider gentle IVF 7. Vasc: +LLE DVT s/p IVC filter placed 07-20-19, c/u -holding eliquis 8. Heme: post-op anemia in setting intermittent hematuria s/p 2 units on inpatient, dropped to 7.3 s/p 2 units and 9.7 likely due to chronic hematuria, holding eliquis- Hgb stable 9. Hyperkalemia- etiology unclear, possibly due to Methadone use, c/u low potassium diet, will consult renal if worsens -Kayexalate x1 today 10. Hypomagnesemia- c/u oral supplement 11. Pain: Methadone, oxycodone-scheduled, gabapentin (renally dosed), tylenol, c/u increased Elavil 50mg qHS -c/uhydroxyzine for itching, d/c benadryl 12. : hx of hematuria with recurrent dysuria UA+, Ucx +proteus c/u 7 does total Levofloxacin renally dosed 12. Dispo: 08-06-19 to home Allergies Coded Allergies: aspirin (Verified Allergy, Severe, ANAPHYLAXIS, 01/07/19) Contrast Media (Verified Allergy, Unknown, itching for days, 11/19/18) atenolol (Verified Adverse Reaction, Intermediate, NAUSEA AND DIZZINESS, 01/07/19) lisinopril (Verified Adverse Reaction, Intermediate, VERY DIZZY, 01/07/19) Current Medications Current Medications Current Medications Medications (Trade) Dose Ordered Sig/Marlene Route PRN Reason Start Time Stop Time Status Last Admin Dose Admin Acetaminophen (Tylenol Tab) 1,000 mg TID PO 07/23/19 21:00 08/06/19 14:34 DC 08/06/19 08:55 Amitriptyline HCl (Elavil) 25 mg QHS PO 07/24/19 21:00 07/27/19 17:11 DC 07/26/19 21:04 Amitriptyline HCl (Elavil) 50 mg QHS PO 07/27/19 21:00 08/06/19 14:34 DC 08/05/19 21:44 Apixaban (Eliquis) 5 mg BID PO 07/31/19 09:00 08/03/19 19:51 DC 08/03/19 08:31 Apixaban (Eliquis) 10 mg BID PO 07/25/19 09:00 07/30/19 21:00 DC 07/30/19 21:31 Atorvastatin Calcium (Lipitor) 10 mg DAILY PO 07/24/19 09:00 08/06/19 14:34 DC 08/04/19 08:26 Bisacodyl (Dulcolax Tab) 5 mg DAILYPRN PRN PO CONSTIPATION 07/23/19 16:30 07/24/19 15:28 DC Calcium Carbonate (Tums) 1,000 mg Q4HP PRN PO HEARTBURN 07/23/19 16:30 08/06/19 14:34 DC Carvedilol (COReg) 6.25 mg BID PO 07/23/19 21:00 08/06/19 14:34 DC 08/06/19 08:52 Dextrose (Dextrose 50%) 25 ml ASDIRECTED PRN IV SEE LABEL COMMENTS 07/23/19 16:30 08/06/19 14:34 DC Diphenhydramine HCl (Benadryl) 25 mg Q4HP PRN PO ITCHING 07/23/19 17:45 07/27/19 17:11 DC 07/27/19 12:17 Diphenhydramine HCl (Benadryl) 50 mg Q4HP PRN PO ITCHING 07/27/19 17:15 07/30/19 12:48 DC 07/29/19 22:50 Docusate Sodium (Colace) 100 mg BID PO 07/23/19 21:00 07/24/19 15:28 DC 07/24/19 08:37 Gabapentin (Neurontin) 600 mg QHS PO 07/23/19 21:00 08/06/19 14:34 DC 08/05/19 21:46 Glucagon (Glucagon) 1 mg ASDIRECTED PRN SC SEE LABEL COMMENTS 07/23/19 16:30 08/06/19 14:34 DC Glucose (Glucose) 16 GM ASDIRECTED PRN PO SEE LABEL COMMENTS 07/23/19 16:30 08/06/19 14:34 DC Heparin Sodium (Heparin (Flush)) 500 units ASDIRECTED PRN IV SEE LABEL COMMENTS 08/04/19 02:45 08/06/19 14:34 DC Heparin Sodium (Heparin (Flush)) 500 units DAILY IV 08/04/19 09:00 08/06/19 14:34 DC 08/06/19 08:56 Home Med (Med Rec Complete!) ASDIRECTED XX 07/23/19 13:30 07/23/19 13:32 DC Hydroxyzine HCl (Atarax) 25 mg TID PO 07/30/19 21:00 08/06/19 14:34 DC 08/06/19 08:53 Insulin Detemir (Levemir Insulin) 10 units QHS NV 07/23/19 21:00 07/25/19 17:50 DC 07/24/19 20:37 Insulin Detemir (Levemir Insulin) 15 units QHS SC 07/25/19 21:00 07/29/19 10:57 DC 07/28/19 20:34 Insulin Detemir (Levemir Insulin) 20 units QHS SC 07/29/19 21:00 08/06/19 14:34 DC 08/05/19 21:48 Insulin Human Lispro (HumaLOG INSULIN) SEE PROTOCOL TABLE AC NV 07/23/19 17:30 08/06/19 14:34 DC 08/06/19 12:00 Insulin Human Lispro (HumaLOG INSULIN) SEE PROTOCOL TABLE QHS NV 07/23/19 21:00 08/06/19 14:34 DC 07/31/19 21:24 Lactobacillus Acidophilus (Bacid) 1 ea TID PO 07/30/19 09:00 08/06/19 14:34 DC 08/06/19 08:52 Levofloxacin (Levaquin) 750 mg Q48H PO 07/30/19 06:00 08/06/19 14:34 DC 08/05/19 05:16 Levothyroxine Sodium (Synthroid) 100 mcg DAILY@06 PO 07/24/19 06:00 08/06/19 14:34 DC 08/06/19 06:19 Magnesium Hydroxide (Milk Of Magnesia) 30 ml DAILYPRN PRN PO CONSTIPATION 07/23/19 16:30 08/06/19 14:34 DC Magnesium Oxide (Mag-Ox) 800 mg BID PO 07/23/19 21:00 08/06/19 14:34 DC 08/06/19 08:53 Methadone HCl (Dolophine) 5 mg BID PO 07/23/19 21:00 08/06/19 14:34 DC 08/06/19 08:51 Miscellaneous (Unresolved Clarification Entry) SEE LABEL COMMENTS DAILY XX 07/31/19 09:00 08/01/19 12:35 DC Miscellaneous (Unresolved Clarification Entry) SEE LABEL COMMENTS DAILY XX 08/05/19 09:00 08/05/19 14:02 DC Nystatin (Mycostatin Powder, Nystop) under right breast ... BID TOP 07/23/19 21:00 08/06/19 14:34 DC 08/06/19 09:03 Oxycodone HCl (Roxicodone, Oxyir) 5 mg 0700,1100,1500,1900 PO 07/25/19 15:00 08/06/19 14:34 DC 08/06/19 11:16 Oxycodone HCl (Roxicodone, Oxyir) 5 mg Q4HP PRN PO PAIN 07/23/19 16:30 07/24/19 15:28 DC 07/24/19 06:31 Oxycodone HCl (Roxicodone, Oxyir) 5 mg Q6H PRN PO SEVERE PAIN (PS 8-10) 07/24/19 15:30 08/06/19 14:34 DC 07/28/19 13:25 Oxycodone HCl (Roxicodone, Oxyir) 10 mg Q4HP PRN PO SEVERE PAIN (PS 8-10) 07/23/19 16:30 07/24/19 15:28 DC 07/24/19 11:13 Pantoprazole Sodium (Protonix) 40 mg BID PO 07/24/19 21:00 08/06/19 14:34 DC 08/06/19 08:52 Pantoprazole Sodium (Protonix) 40 mg DAILY PO 07/24/19 09:00 07/24/19 14:44 DC 07/24/19 08:36 Senna (Senokot) 1 tab QHS PO 07/23/19 21:00 07/24/19 15:28 DC Sodium Chloride (Saline Lock Flush) 10 ml ASDIRECTED PRN IV SEE LABEL COMMENTS 07/23/19 20:15 Cancel Sodium Chloride (Saline Lock Flush) 10 ml ASDIRECTED PRN IV SEE LABEL COMMENTS 08/04/19 02:45 08/06/19 14:34 DC Sodium Chloride (Saline Lock Flush) 10 ml DAILY IV 07/24/19 09:00 07/28/19 10:00 DC 07/26/19 08:13 Sodium Chloride (Saline Lock Flush) 10 ml DAILY IV 08/04/19 09:00 08/06/19 14:34 DC 08/06/19 09:45 Trazodone HCl (Desyrel) 25 mg QHSP PRN PO INSOMNIA 07/24/19 15:30 08/06/19 14:34 DC 08/05/19 21:46 CHRIS RICH MD Sep 07, 2019 11:25
--- NOTE | 2019-09-08 14:27 | PMRDS ---
DATE OF ADMISSION: 07/23/2019 DATE OF DISCHARGE: 08/06/2019 CHIEF COMPLAINT/DISCHARGE DIAGNOSIS: Left hip fracture. HISTORY OF PRESENT ILLNESS: 69-year-old female with a past medical history of recurrent rectal adenocarcinoma with metastases to liver, pelvic wall and lung status post bowel resection with colostomy, hypertension, diabetes, chronic kidney disease (CKD) III, pulmonary embolus (PE) in 2017, ureteral stricture status post stent, hypothyroidism presented to the [facility] emergency department (ED) on 07/18/2019 after sustaining a fall with left-sided pain and weakness. Hip x-rays revealed a "left femoral neck fracture". She was also found to have a left common femoral deep venous thrombosis (DVT) and left greater saphenous DVT. She underwent an inferior vena cava (IVC) filter placement on 07/20/2019 after which she underwent a left hip hemiarthroplasty performed on 07/20/2019 complicated by postop anemia. She is going to be started Eliquis for DVT but she also developed hematuria, which she reports is chronic and intermittent so the Eliquis was held. The patient received 2 units of packed red blood cells (PRBC) on 07/22/2019 with an increase in hemoglobin from 7.2 to 8.4. She had hypokalemia, hypomagnesemia, was evaluated by therapy and found to be well below her prior level of function and deemed medically appropriate for discharge to acute rehabilitation unit (ARU) on 07/23/2019. PAST MEDICAL HISTORY: As per history of present illness (HPI). HOSPITAL COURSE: The patient was admitted and enrolled in a comprehensive physical therapy (PT), occupational therapy (OT) program. She received 24-hour nursing supervision and weekly team meetings were held to discuss her progress. The patient was able to maintain her hip precautions in the setting of a hip hemiarthroplasty. Hip x-ray on 07/28/2019 following a twisting of the left hip episode were negative for new fracture. The patient had stable acute kidney injury (DOTTIE) on chronic kidney disease (CKD). Her Eliquis was restarted on admission, however, the patient had a drop in hemoglobin and hematocrit in the setting of intermittent hematuria so her Eliquis was held and she received 2 units of red blood cells (RBCs) on the unit. The patient had intermittent episodes of hyperkalemia thought to be possibly due to her methadone use, she was maintained on low potassium diet and received Kayexalate. The patient complained of significant left hip pain thought to be neuropathic in nature, was started on Elavil with resolution of her symptoms. She was treated with a 7-day course of levofloxacin for a positive urine culture for Proteus. She made overall significant gains in therapy was deemed medically and functionally stable to return home. DISCHARGE MEDICATIONS: As per instructions. FUNCTIONAL HISTORY: Upon discharge the patient was modified independent for functional transfers. Able to ambulate 50 feet at modified independent level and able to negotiate nine stairs at a standby assist level. In occupational therapy, she was modified independent for toileting, showering, upper and lower body dressing. Thank you for this referral.
== END 2019-08-06 14:00 | disposition home health service (06) | DRG 560 ==
LOC: M PM&R 07-23 11:50
PROVIDERS: ADMIT Physical Medicine & Rehabilitation; ATTEND Physical Medicine & Rehabilitation
PROC: 30233N1 Transfusion of Nonautologous Red Blood Cells into Peripheral Vein, Percutaneous Approach (ICD-10-PCS; principal; 2019-08-03)
DX: S72.042D Displaced fracture of base of neck of left femur, subsequent encounter for closed fracture with routine healing (principal); C78.7 Secondary malignant neoplasm of liver and intrahepatic bile duct; C20 Malignant neoplasm of rectum; N17.9 Acute kidney failure, unspecified; C78.00 Secondary malignant neoplasm of unspecified lung; C79.51 Secondary malignant neoplasm of bone; E03.9 Hypothyroidism, unspecified; N18.3 Chronic kidney disease, stage 3 (moderate); I12.9 Hypertensive chronic kidney disease with stage 1 through stage 4 chronic kidney disease, or unspecified chronic kidney disease; E11.22 Type 2 diabetes mellitus with diabetic chronic kidney disease; R31.9 Hematuria, unspecified; E11.42 Type 2 diabetes mellitus with diabetic polyneuropathy; D50.0 Iron deficiency anemia secondary to blood loss (chronic); R30.0 Dysuria; E87.5 Hyperkalemia; E83.42 Hypomagnesemia; B96.4 Proteus (mirabilis) (morganii) as the cause of diseases classified elsewhere; Z79.01 Long term (current) use of anticoagulants; Z79.899 Other long term (current) drug therapy; Z88.6 Allergy status to analgesic agent; Z88.8 Allergy status to other drugs, medicaments and biological substances; Z91.041 Radiographic dye allergy status; Z96.642 Presence of left artificial hip joint; W18.09XD Striking against other object with subsequent fall, subsequent encounter; Z90.49 Acquired absence of other specified parts of digestive tract; Y92.009 Unspecified place in unspecified non-institutional (private) residence as the place of occurrence of the external cause

== ENCOUNTER 2019-08-28 12:13 | Inpatient (IN) | payer MEDICARE ==
[~2019-08-28] VITALS: Ht 157.5 cm; Wt 93.6 kg
[~2019-08-28 12:13] MED LIST changes: +AMIT50TA PO; +ELIQ5TAB PO; +ENOX40IN3 SC; +HYDR-3363 PO; +HumaLOG INSULIN (NovoLOG) PER UNIT SC SCH; +INSUDET SC; +LEVA750T7 PO; +MAG400TA PO; +MILKSUS3 PO; +MOM30SS2 PO; +NYAM10003 TOP; +NYST1POW9 TOP; +OXYCO5TA PO; +PERC5TAB12 PO; +PERCOCET PO; +RISATAB3 PO; +SENN-50 PO; +SENN-52 PO
[2019-08-28] MEDS ORDERED: LOPE2CA PO (12:45)
[2019-08-28] MEDS ORDERED: LOVE0.8I3 SC (12:45)
[2019-08-28] MEDS ORDERED: ZOFR8TAB24 PO (12:45)
[2019-08-28 13:16] LABS: BASO % 0.3 % (0.0-1.0); EOS # 0.3 10^3/uL (0.0-0.5); HEMATOCRIT 31.1 % (36.0-47.0); HEMOGLOBIN 9.7 g/dl (12.0-15.5); LYMPH # 0.8 10^3/uL (1.5-5.0); LYMPH % 7.5 % (24.0-44.0); MEAN CORPUSCULAR HEMOGLOBIN 28.8 pg (27.0-33.0); MEAN CORPUSCULAR HGB CONC 31.2 g/dl (32.0-36.5); MEAN CORPUSCULAR VOLUME 92.3 fl (80.0-96.0); MONO # 0.6 10^3/uL (0.0-0.8); MONO % 5.4 % (0.0-5.0); NEUTROPHILS # 8.5 10^3/uL (1.5-8.5); NEUTROPHILS % 83.3 % (36.0-66.0); PLATELET COUNT, AUTOMATED 160 10^3/uL (150-450); RED BLOOD COUNT 3.37 10^6/uL (4.00-5.40); WHITE BLOOD COUNT 10.2 10^3/uL (4.0-10.0)
--- NOTE | 2019-08-28 13:40 | REP ---
Portable chest x-ray: Single view. History: GI bleeding. Comparison chest x-ray: July 18, 2019. Findings: There is a left subclavian transvenous [id number] catheter in place with its tip in the expected location of the superior vena cava. Monitoring electrodes are seen. The lungs are well inflated and clear. Heart is not enlarged. Pulmonary vasculature is not increased. Impression: [id number] catheter. No acute disease. Electronically Signed by Jak Omalley MD 08/28/2019 01:30 P
[2019-08-28 13:45] LABS: ALT/SGPT 19 U/L (12-78); BLOOD UREA NITROGEN 29 MG/DL (7-18); CALCIUM LEVEL 8.5 MG/DL (8.8-10.2); CARBON DIOXIDE LEVEL 24 MEQ/L (21-32); CHLORIDE LEVEL 104 MEQ/L (98-107); CPK CREATINE PHOSPHOKINASE 69 U/L (26-192); CREATININE FOR GFR 1.45 MG/DL (0.55-1.30); GLUCOSE, FASTING 182 MG/DL (70-100); POTASSIUM SERUM 5.1 MEQ/L (3.5-5.1); SODIUM LEVEL 135 MEQ/L (136-145)
[2019-08-28 13:46] LABS: ALBUMIN 3.3 GM/DL (3.2-5.2); BILIRUBIN,DIRECT 0.2 MG/DL (0.0-0.2); BILIRUBIN,TOTAL 0.8 MG/DL (0.2-1.0); CK-MB VALUE MASS 2.6 NG/ML (<3.6); LIPASE 38 U/L (73-393); MB/CK RELATIVE INDEX 3.77 (< OR =4); TOTAL PROTEIN 6.7 GM/DL (6.4-8.2); TROPONIN I < 0.02 NG/ML (< 0.10)
[2019-08-28 13:58] LABS: INR 1.26; PROTHROMBIN TIME 15.5 SECONDS (11.8-14.0)
[2019-08-28 13:59] LABS: PARTIAL THROMBOPLASTIN TIME 39.5 SECONDS (25.0-38.4)
[2019-08-28] MEDS ORDERED: BENA25CA4 PO (15:00)
[2019-08-28] MEDS ORDERED: oxyCODONE 5MG TAB PO SCH (15:00)
[2019-08-28] MEDS ORDERED: AMIT50TA PO (15:00)
[2019-08-28] MEDS ORDERED: GLUCOSE 4 GM CHEW TABLET PO PRN ×2 (15:00)
[2019-08-28] MEDS: HumaLOG INSULIN (NovoLOG) PER UNIT SC SCH ×3 (15:00→23:51)
[2019-08-28] MEDS ORDERED: GABA-843 PO (15:00)
[2019-08-28] MEDS ORDERED: GLUCAGON FOR INJ 1 MG VIAL (J1610) SC PRN ×2 (15:00)
[2019-08-28] MEDS ORDERED: ACET-683 PO (15:00)
[2019-08-28] MEDS ORDERED: OXYC-517 PO (15:00)
[2019-08-28] MEDS ORDERED: DEXTROSE 50% 50 ML SYRINGE IV PRN ×2 (15:00)
[2019-08-28] MEDS: D5W/0.45% SODIUM CHLORIDE 1,000 ML IV SCH (15:00)
[2019-08-28] MEDS ORDERED: oxyCODONE 5MG TAB PO PRN (15:38)
--- NOTE | 2019-08-28 15:57 | ECGEPIP ---
[facility] Test Date: 2019-08-28 Pat Name: ARBEN QUINTERO Department: Room: - Gender: Female [employer]: : 1950 Requested By: Kaiden Bryant Order Number: [id number] Reading MD: Kimberlee Anthony Measurements Intervals [place] Rate: 76 P: 33 NM: 172 QRS: 15 QRSD: 90 T: 46 QT: 362 QTc: 408 Interpretive Statements SINUS RHYTHM SIMILAR TO 07/18/19 EXCEPT BASELINE ISSUE [id number] Electronically Signed on 08-28-2019 15:57:29 EST by Kimberlee Anthony
[2019-08-28 18:38] LABS: HEMATOCRIT 33.2 % (36.0-47.0); HEMOGLOBIN 10.2 g/dl (12.0-15.5)
[2019-08-28 21:20] VITALS: BP 138/76
[2019-08-28] MEDS: MAGNESIUM OXIDE 400 MG TAB (MAG-OX) PO SCH (22:23)
[2019-08-28] MEDS: GABAPENTIN 300 MG CAP PO SCH (22:23)
[2019-08-28] MEDS: CARVedilol 6.25 MG TAB PO SCH (22:23)
[2019-08-28] MEDS: diphenhydrAMINE 25 MG CAP PO PRN (22:24)
[2019-08-28] MEDS: AMITRIPTYLINE 50 MG TAB PO SCH (23:31)
[2019-08-29] VITALS (7 sets, daily range): BP systolic 126–151; BP diastolic 60–78
[2019-08-29 00:14] LABS: HEMATOCRIT 27.4 % (36.0-47.0); HEMOGLOBIN 8.7 g/dl (12.0-15.5)
[2019-08-29] MEDS: LEVOTHYROXINE 100MCG TABLET (0.1MG) PO SCH (06:03)
[2019-08-29] MEDS: D5W/0.45% SODIUM CHLORIDE 1,000 ML IV SCH (06:03)
[2019-08-29 06:15] LABS: HEMATOCRIT 28.1 % (36.0-47.0); HEMOGLOBIN 8.8 g/dl (12.0-15.5); MEAN CORPUSCULAR HEMOGLOBIN 28.8 pg (27.0-33.0); MEAN CORPUSCULAR HGB CONC 31.3 g/dl (32.0-36.5); MEAN CORPUSCULAR VOLUME 91.8 fl (80.0-96.0); PLATELET COUNT, AUTOMATED 152 10^3/uL (150-450); RED BLOOD COUNT 3.06 10^6/uL (4.00-5.40); WHITE BLOOD COUNT 7.9 10^3/uL (4.0-10.0)
[2019-08-29] MEDS: HumaLOG INSULIN (NovoLOG) PER UNIT SC SCH ×4 (06:15→21:00)
--- NOTE | 2019-08-29 08:27 | HPE ---
DATE OF ADMISSION: 08/28/2019 PRIMARY CARE PHYSICIAN: Rani Blas CHIEF COMPLAINT: Bright red blood per rectum. 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 Patient had a left femoral fracture in 07/2019 and left common femoral deep venous thrombosis (DVT), left greater saphenous DVT, had an inferior vena cava (IVC) filter placed and had hemiarthroplasty in 07/2019. Patient had been on Lovenox since then and was having blood "gushing out of her rectum." Per the patient, her called Patricia Blas and Dr. Wong, who both suggested coming to the emergency room (ER) for evaluation and admission. A week ago, patient was given 2 units of red blood cell (RBC) transfusion. She noted some large clots today with lightheadedness, generalized weakness, had fallen on the floor at home, went down and rolled over to her knees. She called out to her , who got behind her and lifted her up. She was able to ambulate with assistance. She otherwise denied and chest pain, pressure, tightness. She did complain of some dizziness without any abdominal pain, nausea or vomiting. No fever or chills or abdominal pain at home. Patient had not been on any nonsteroidal anti-inflammatories besides the Lovenox, had not taken any aspirin. Patient also says that she has been having some dark, almost black, discharge through her vaginal fistula, which was malodorous. She had spoken with Dr. Barber about this 1 month ago, and he had mentioned that she will simply have to live with this as this is a fistula. Patient has been on clinical trials under Dr. Christiano Sullivan at [facility] in [place], currently being treated with pembrolizumab, cetuximab, study [id number], with progression of the colon on scans at [facility]. Patient's liver and lung metastasis have stopped growing, according to the patient, but the colon cancer has increased, and plans are for her to try a different regimen on her next visit. Patient's brought the patient to the emergency room for further evaluation. In the ER, she appeared stable. Blood pressure was 152/66. She was afebrile. Hemoglobin was 9.7. She says that she usually gets transfused when the hemoglobin is less than 8.5, usually every 2 weeks. She complains of a little bit of dysuria. No frequency, but complains of some urgency. No flank pain, chills, or fevers at home. Hospitalist was asked to admit for gastrointestinal (GI) bleed. PAST MEDICAL HISTORY: Metastatic rectal cancer to liver, lung, and pelvis, managed by [facility] [place], on third-line treatment with progression on scans at [facility]. Colon cancer resected in 2003, irradiated chemo times two with liver mets resected also. Pulmonary embolism, type 2 diabetes, hypothyroidism, methicillin-resistant Staphylococcus aureus (MRSA) vulvar abscess, 2011, hyperlipidemia, pulmonary embolus (PE) 2016 after liver resection, Xarelto for 6 months, left hydronephrosis with progressive renal insufficiency. ALLERGIES: ASPIRIN, causing anaphylaxis; LISINOPRIL, causing dizziness. PAST SURGICAL HISTORY: Colon cancer resection, 2003. Tonsillectomy. Colon surgery, 2013. Liver metastasis resection, [facility], 2015. Port implanted 2013. Repeat colonoscopy by Dr. Barber, 04/30/2017. Port implant removed, 06/19/2017. Left ureteral stent removal 12/24/2017. Ureter reimplantation by Dr. Solitario, 03/05/2018. Cystoscopy with left stent removal 04/15/2018. Colostomy 02/2019 Partial left hip replacement 07/2019. HOME MEDICATIONS: - acetaminophen 1 gram by mouth every 6 hourly as needed for pain - amitriptyline 50 mg nightly - atorvastatin 10 mg daily - Coreg 6.25 twice a day - diphenhydramine 25 mg as needed for pruritus - Lovenox 150 mg nightly - gabapentin 600 mg nightly - levothyroxine 100 mcg daily - loperamide 2 mg every 6 as needed for diarrhea - MagOx 400 mg twice a day - methadone 5 mg every 12 as needed for pain - Nystatin topically twice a day as needed - Zofran 8 mg twice a day as needed - oxycodone 5 mg every 8 as needed FAMILY HISTORY: Father , age 68, hypertension, diabetes, coronary artery disease (CAD). Mother age 70, hypertension, stroke, cerebral occlusion with cerebral infarction. Son with kidney disease, . Maternal grandmother, bilateral breast cancer. Paternal aunt with breast cancer. Maternal aunt with colon cancer. One sister healthy. She has three sons. SOCIAL HISTORY: Patient was a former smoker. Lives with spouse and granddaughter. Went to college. No recreational drug use. [employer]. . Drinks occasionally during the holidays. 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 IMPRESSION: 1. Metastatic rectal cancer to liver, lung, and pelvis with ongoing gastrointestinal (GI) bleed. Per Dr. Fletcher, who is the general surgeon general road production manager, not much to offer at this time. Will defer to the morning, we discussed either gastrointestinal (GI) or again with Dr. Fletcher whether intervention is required. Patient has been typed and screened. Hemoglobin and hematocrit will be checked every 6 hourly. She is currently symptomatic with lightheadedness. She will be kept on telemetry to monitor for any arrhythmias. No acute indication at this time to provide blood transfusion. Patient's Lovenox has been discontinued temporarily. She does have an inferior vena cava (IVC) filter. Will defer to the morning team to further look into the area of bleed. 2. History of left common femoral deep venous thrombosis (DVT), left greater saphenous DVT, status post IVC filter placement. Due to recent GI bleed, patient's Lovenox will be held due to ongoing blood loss. We will check hemoglobin and hematocrit every 6 hourly, transfuse as needed. 3. Hypothyroidism. She may be resumed on her home dose of levothyroxine, clear diet this evening, and nothing by mouth in the morning. 4. History of methicillin-resistant Staphylococcus aureus (MRSA) vulvar abscess, 2012. No recurrence. 5. Dyslipidemia. May resume home dose of Lipitor. 6. History of left hydronephrosis and renal insufficiency. Currently at baseline creatinine. Will do a trial of intravenous (IV) fluids and will continue with avoiding nephrotoxins and renally dosing all medications.
[2019-08-29] MEDS: MAGNESIUM OXIDE 400 MG TAB (MAG-OX) PO SCH ×2 (08:53→21:21)
[2019-08-29] MEDS: CARVedilol 6.25 MG TAB PO SCH ×2 (08:53→21:21)
[2019-08-29] MEDS: diphenhydrAMINE 25 MG CAP PO PRN ×2 (08:53→21:21)
[2019-08-29] MEDS ORDERED: SLF 3 ML SYR IV PRN (12:45)
[2019-08-29] MEDS: SLF 3 ML SYR IV SCH ×2 (12:55→21:22)
[2019-08-29 17:55] LABS: HEMATOCRIT 29.3 % (36.0-47.0); MEAN CORPUSCULAR HEMOGLOBIN 28.1 pg (27.0-33.0); MEAN CORPUSCULAR HGB CONC 30.7 g/dl (32.0-36.5); MEAN CORPUSCULAR VOLUME 91.6 fl (80.0-96.0); PLATELET COUNT, AUTOMATED 166 10^3/uL (150-450); WHITE BLOOD COUNT 7.9 10^3/uL (4.0-10.0)
[2019-08-29] MEDS: ATORVASTATIN 20 MG TAB PO SCH (21:21)
[2019-08-29] MEDS: GABAPENTIN 300 MG CAP PO SCH (21:21)
[2019-08-29] MEDS: METHADONE 10 MG TAB (S0109) PO PRN (21:21)
[2019-08-29] MEDS: AMITRIPTYLINE 50 MG TAB PO SCH (21:52)
--- NOTE | 2019-08-29 21:52 | IPN ---
DATE: 08/29/2019 Elisabeth has a history of colon cancer with metastasis and has been troubled by a local tumor process that has invaded pelvic structures resulting in bleeding from her bladder and sometimes vagina, as well as rectal area. Her situation was further complicated recently by suffering a deep vein clot in her left leg with the presence of active bleeding at the time. She received an inferior vena cava (IVC) filter and was transferred over to rehabilitation for some time. She comes in again with bleeding, this time reportedly rectal but patient believes is mostly vaginal and she has had chronic urinary bleeding. She is followed by Dr. Wong from the local oncology service and is supposed to start a new chemotherapy regimen but is waiting for insurance healthcare representative at [facility] to arrange a followup visit for her, by patient's description of her situation. She is not having any significant pain or dyspnea, but with increase bleeding, she knew she needed to come to hospital. Colonoscopy was done in [address] Barber. The hospital contacted Dr. Fletcher yesterday for consideration for a repeat scope that he did not feel that he could contribute anything and declined. PAST SURGICAL HISTORY: 1. Resection for colon cancer in 2004 and again in 2013. 2. Liver metastases were resected at [facility] in 2015. 3. She had a ureteral stent removed in 2018. 4. Ureter reimplantation by Dr. Solitario in 2018. 5. Chronic left-sided hydronephrosis. 6. A colostomy in February 2019. 7. She had a partial hip replacement in July 2019. ALLERGIES: She has history of allergy to ASPIRIN, which causes full anaphylaxis, and LISINOPRIL made her dizzy. She also has a past history of pulmonary embolus as well as type 2 diabetes, hypothyroidism, and methicillin-resistant Staphylococcus aureus infection associated with a vulvar abscess in 2011 with no recurrence. Pulmonary embolus occurred in 2015, and she was treated with Xarelto at that time for 6 months. Since her discharge she has been on 150 mg of Lovenox given at bedtime along with her usual medications for thyroid, blood pressure, and cholesterol control. Also uses gabapentin 600 mg at bedtime, levofloxacin 100 mcg, diphenhydramine 25 mg as needed for itching, Coreg 6.25 mg twice a day, atorvastatin 10 mg a day, amitriptyline 50 at bedtime, Tylenol 1 gram every 6 as needed, methadone 5 mg every 12 as needed for pain, magnesium oxide 400 mg twice a day, loperamide 2 mg every 6 hours as needed for diarrhea, Zofran 8 mg twice a day as needed for nausea, oxycodone 5 mg every 8 hours for pain. No significant alcohol use. PHYSICAL EXAMINATION: VITAL SIGNS: Blood pressure 126/60, pulse 80, respiratory rate 18, unlabored, oxygen saturation 96% on room air, temperature 97.7. She is alert pleasant, cooperative in no apparent distress. LUNGS: Clear to auscultation, although diaphragmatic excursion is limited by obesity. HEART: Regular rate rhythm without murmurs, gallops, or rubs.. ABDOMEN: Soft, nontender. No guarding or rebound. Left leg is swollen compared to the right, nontender. The patient she is scheduled for an MRI outpatient of the abdomen and pelvis. LABORATORY DATA: From today includes a hemoglobin that is stable since midnight of 8.8. She was 9.7, initially 10.2 at 6:25 p.m. and then 8.7 at midnight and 8.8 this morning. Chemistries: Creatinine 1.45, BUN 29, potassium 5.1. ALT, AST, bilirubin are all normal. Alkaline phosphatase 135. Lipase 38. Urine showed 3+ blood. Negative nitrite. As mentioned, she is scheduled for MRI of her abdomen and/or pelvis on Saturday to evaluate the extent of her tumor and localization of the source of bleeding. At this point, the bleeding seems to have tailed off and stopped. Her Lovenox was not continued after admission. Her Lovenox dose has been 150 mg daily, which is a reasonable dose for daily administration, although her adjusted body weight calculates to be 65.6 kg, so if we are going to give this drug once a day as a therapeutic agent, it would be calculated at 1.5 mg per day times her daily weight, which would work out to be 98.4 mg rather than 150. Dosing with Lovenox is problematic in patients that are obese, and with her weight being as it is, it would be appropriate to use an adjusted body weight calculation, I think, which would give us an adjusted body weight of 65.6, which would give us a dose that is quite a bit less than her current dose. She has demonstrated recurrent bleeding from this tumor process with the current dosing; therefore, I think the current dose of Lovenox should not continue. My plan at this point will be to hold the Lovenox for another day to assure that the bleeding is fully stopped and resume it at a dose adjusted for her body weight, which would be an approximately 100 mg per day, or 70 twice a day. With an adjusted body weight of 65.6 kg, daily dose would be 98.4 mg, and twice daily dose would be approximately 66 or rounded up to 70 twice a day. Since she has been doing it once a day, I think it would be reasonable to continued once a day dosing at 100 mg once the drug is resumed. Continue other pain medications as ordered. Monitor hemoglobin. She has done every 6 regimen. I think we can drop her down to every 12 going forward. Intravenous (IV) fluids I think at this point can be discontinued. We can resume diet.
[2019-08-30] VITALS: BP 148/70
[2019-08-30 04:00] VITALS: BP 140/68
[2019-08-30 05:54] LABS: HEMATOCRIT 26.8 % (36.0-47.0); HEMOGLOBIN 8.3 g/dl (12.0-15.5); MEAN CORPUSCULAR HEMOGLOBIN 28.5 pg (27.0-33.0); MEAN CORPUSCULAR VOLUME 92.1 fl (80.0-96.0); PLATELET COUNT, AUTOMATED 168 10^3/uL (150-450); RED BLOOD COUNT 2.91 10^6/uL (4.00-5.40)
[2019-08-30] MEDS: SLF 3 ML SYR IV SCH ×3 (05:54→20:28)
[2019-08-30] MEDS: LEVOTHYROXINE 100MCG TABLET (0.1MG) PO SCH (05:54)
[2019-08-30 06:13] LABS: CALCIUM LEVEL 8.5 MG/DL (8.8-10.2); CREATININE FOR GFR 1.39 MG/DL (0.55-1.30); GLOMERULAR FILTRATION RATE 39.9 (>39); POTASSIUM SERUM 4.5 MEQ/L (3.5-5.1)
[2019-08-30 08:00] VITALS: BP 125/58
[2019-08-30] MEDS: MAGNESIUM OXIDE 400 MG TAB (MAG-OX) PO SCH ×2 (08:10→20:21)
[2019-08-30] MEDS: CARVedilol 6.25 MG TAB PO SCH ×2 (08:11→20:20)
[2019-08-30] MEDS: HumaLOG INSULIN (NovoLOG) PER UNIT SC SCH ×4 (08:11→20:36)
[2019-08-30 11:22] LABS: MAGNESIUM LEVEL 1.9 MG/DL (1.8-2.4)
[2019-08-30 12:00] VITALS: BP 138/65
[2019-08-30] MEDS: diphenhydrAMINE 25 MG CAP PO PRN ×2 (13:15→20:27)
[2019-08-30 16:00] VITALS: BP 143/65
[2019-08-30 20:00] VITALS: BP 136/63
[2019-08-30] MEDS: AMITRIPTYLINE 50 MG TAB PO SCH (20:21)
[2019-08-30] MEDS: ATORVASTATIN 20 MG TAB PO SCH (20:21)
[2019-08-30] MEDS: GABAPENTIN 300 MG CAP PO SCH (20:21)
[2019-08-30] MEDS: ENOXAPARIN 100MG/1ML SYRINGE (J1650) SC SCH (20:22)
--- NOTE | 2019-08-30 20:26 | IPN ---
DATE: 08/30/2019 Elisabeth has not experienced any significant bleeding overnight, a little bit of staining. Not dyspneic. No abdominal pain. She reminds me that she is scheduled for an MRI tomorrow and if possible she would like to get that done while she is here instead of having to return to the hospital later in the day, I will see what we can do on that front. OBJECTIVE: Vital signs: Blood pressure 125/58, pulse 88, regular, respiratory rate 18, temperature 97.0. Lungs: Clear to auscultation. Heart: Regular rhythm. Abdomen: Soft. No guarding or localizing tenderness. She has no deformity. No ulcerations on her feet. She reports intermittent pain, sort of a grabbing, stabbing pain in her feet during the night, and she does have a history of hypomagnesemia. ASSESSMENT: 1. Metastatic colon cancer involving local pelvic structures and creating secondary bleeding phenomenon which has been worsened by use of Lovenox at full therapeutic dose calculated based on her measured weight. The bleeding seems to have stopped or minimal at this point. 2. Intermittent pains in her foot suggestive of muscle spasms involving intrinsic muscles of her foot. 3. Hypertension. PLAN: Will attempt to resume her Lovenox at 100 mg at bedtime as discussed in the previous progress note. Another day of monitoring might be prudent to help make sure that she does not have resumption of bleeding necessitating interruption and return to hospital. If she does have recurrent bleeding on this dose, then consider interruption and lower maintenance dose than 100 mg at bedtime. We will see if we can arrange to get her MRI accomplished while she is inpatient as a matter of convenience to avoid transporting her particularly in light of anticipated severe weather event.
[2019-08-31] VITALS: BP 145/67
[2019-08-31 04:00] VITALS: BP 137/64
[2019-08-31] MEDS: LEVOTHYROXINE 100MCG TABLET (0.1MG) PO SCH (05:37)
[2019-08-31] MEDS: SLF 3 ML SYR IV SCH ×3 (05:41→21:49)
[2019-08-31 06:28] LABS: HEMATOCRIT 26.2 % (36.0-47.0); HEMOGLOBIN 8.5 g/dl (12.0-15.5); MEAN CORPUSCULAR HEMOGLOBIN 29.1 pg (27.0-33.0); MEAN CORPUSCULAR HGB CONC 32.4 g/dl (32.0-36.5); MEAN CORPUSCULAR VOLUME 89.7 fl (80.0-96.0); PLATELET COUNT, AUTOMATED 191 10^3/uL (150-450); RED BLOOD COUNT 2.92 10^6/uL (4.00-5.40); WHITE BLOOD COUNT 7.4 10^3/uL (4.0-10.0)
[2019-08-31 06:53] LABS: CALCIUM LEVEL 8.3 MG/DL (8.8-10.2); CREATININE FOR GFR 1.37 MG/DL (0.55-1.30); GLOMERULAR FILTRATION RATE 40.6 (>39); MAGNESIUM LEVEL 1.8 MG/DL (1.8-2.4); POTASSIUM SERUM 4.6 MEQ/L (3.5-5.1)
[2019-08-31 08:00] VITALS: BP 129/76
--- NOTE | 2019-08-31 08:38 | IPNPDOC ---
Subjective Date Seen The patient was seen on 08/31/19. Subjective Chief Complaint/HPI GI bleed Events since last encounter Lovenox dosing decreased to 100 mg SQ daily. hgb stable at 8.5 today. Planned MR of abdomen today at 5:00 pm. Continues with vaginal/urethral bleeding. Constitutional: Denies: Chills, Fever, Night Sweats Skin: Denies: Rash, Lesions, Breakdown Pulmonary: Denies: Dyspnea, Cough Cardiovascular: Denies: Chest Pain, Palpitations, Orthopnea, Paroxysmal Noc. Dyspnea, Lt Headedness Gastrointestinal: Denies: Nausea, Vomiting, Abdominal Pain, Diarrhea, Constipation Objective Physical Examination General Exam: Positive: Alert, No Acute Distress Neck Exam: Positive: Supple; Negative: JVD, thyromegaly Chest Exam: Positive: Clear to auscultation, Normal air movement Heart Exam: Positive: Rate Normal, Regular Rhythm, Normal S1, Normal S2; Negative: Murmurs, Rubs Telemetry: Positive: No significant arrhythmia Psych Exam: Positive: Mental status NL, Mood NL, Oriented x 3 Assessment /Plan Problems (1) Adenocarcinoma of rectum metastatic to pelvis Status: Chronic Problem Text: not further surgical candidate given recurrent metastatic rectal CA per Sunil 08/09/19 08/31/19 MRI LS c franca ordered inpx (had been ordered by Dr. Wong at 08/28/19 OV 2 RLE radic pain) (2) GI bleed Status: Acute Problem Text: most likely related to anti-coagulant +/- colonic mets LMWH reduced for IBW and GFR (3) Anemia Status: Acute Problem Text: hgb 8.5 today (4) Colovaginal fistula Status: Acute Problem Text: as per rectal CA (5) Left leg DVT Status: Acute (6) Hypothyroidism Status: Chronic (7) Diabetes mellitus, type 2 Status: Chronic Response to Treatment: Stable (8) CKD (chronic kidney disease), stage III Status: Chronic Response to Treatment: Stable Problem Text: baseline Cr 1.3 Plan/VTE VTE Prophylaxis Ordered?: Yes VS, I&O, 24H, Fishbone Vital Signs/I&O Vital Signs Date Time Temp Pulse Resp B/P (MAP) Pulse Ox O2 Delivery O2 Flow Rate FiO2 08/31/19 08:00 98.1 74 18 129/76 (93) 94 Room Air I&O- Last 24 Hours up to 6 AM 08/31/19 05:59 Intake Total 370 ml Output Total 450 ml Balance -80 ml Laboratory Data 24H LABS Laboratory Tests 2 08/30/19 12:00: Bedside Glucose (Misc Panel) 180H 08/30/19 17:05: Bedside Glucose (Misc Panel) 202H 08/30/19 20:03: Bedside Glucose (Misc Panel) 213H 08/31/19 05:52: Nucleated Red Blood Cells % (auto) 0.0 08/31/19 05:53: Anion Gap 8, Glomerular Filtration Rate 40.6, Calcium Level 8.3L, Magnesium Level 1.8 CBC/BMP Laboratory Tests 08/31/19 05:52 08/31/19 05:53 Microbiology Microbiology 08/28/19 Urine Culture - Final, Complete Rani Blas Aug 31, 2019 08:38 Kenrick El M.D. Aug 31, 2019 17:02
[2019-08-31] MEDS: CARVedilol 6.25 MG TAB PO SCH ×2 (09:08→21:49)
[2019-08-31] MEDS: MAGNESIUM OXIDE 400 MG TAB (MAG-OX) PO SCH ×2 (09:08→21:47)
[2019-08-31] MEDS: HumaLOG INSULIN (NovoLOG) PER UNIT SC SCH ×4 (09:08→21:46)
[2019-08-31] MEDS: METHADONE 10 MG TAB (S0109) PO PRN (12:17)
[2019-08-31 15:53] VITALS: BP 129/58
[2019-08-31 18:37] VITALS: BP 130/65
[2019-08-31] MEDS: ENOXAPARIN 100MG/1ML SYRINGE (J1650) SC SCH (21:46)
[2019-08-31] MEDS: AMITRIPTYLINE 50 MG TAB PO SCH (21:47)
[2019-08-31] MEDS: GABAPENTIN 300 MG CAP PO SCH (21:47)
[2019-08-31] MEDS: ATORVASTATIN 20 MG TAB PO SCH (21:47)
[2019-08-31 22:00] VITALS: BP 145/67
[2019-09-01] MEDS: SLF 3 ML SYR IV SCH ×3 (05:47→21:10)
[2019-09-01] MEDS: LEVOTHYROXINE 100MCG TABLET (0.1MG) PO SCH (05:47)
[2019-09-01 06:00] VITALS: BP 144/66
[2019-09-01 06:38] LABS: HEMATOCRIT 25.5 % (36.0-47.0); HEMOGLOBIN 8.2 g/dl (12.0-15.5); MEAN CORPUSCULAR HEMOGLOBIN 28.9 pg (27.0-33.0); MEAN CORPUSCULAR HGB CONC 32.2 g/dl (32.0-36.5); MEAN CORPUSCULAR VOLUME 89.8 fl (80.0-96.0); PLATELET COUNT, AUTOMATED 200 10^3/uL (150-450); RED BLOOD COUNT 2.84 10^6/uL (4.00-5.40)
[2019-09-01 07:09] LABS: CALCIUM LEVEL 8.8 MG/DL (8.8-10.2); CREATININE FOR GFR 1.32 MG/DL (0.55-1.30); GLOMERULAR FILTRATION RATE 42.4 (>39); PERCENT SATURATION 19.9 % (13.2-45.0); POTASSIUM SERUM 4.6 MEQ/L (3.5-5.1)
[2019-09-01] MEDS: MAGNESIUM OXIDE 400 MG TAB (MAG-OX) PO SCH ×2 (08:09→21:09)
[2019-09-01] MEDS: CARVedilol 6.25 MG TAB PO SCH ×2 (08:09→21:10)
[2019-09-01] MEDS: HumaLOG INSULIN (NovoLOG) PER UNIT SC SCH ×4 (08:09→20:58)
--- NOTE | 2019-09-01 08:15 | REP ---
MRI lumbar spine: 08/31/2019. Indication: Low back pain. Comparison: 07/18/2015. Technique: Multiplanar short and long TR sequences of the lumbar spine were obtained including post-gadolinium imaging. 9 ml of IV ProHance were administered. Findings: Vertebral body alignment is within anatomical limits. No worrisome marrow signal or pathologic gadolinium enhancement are present. The visualized cord is normal. Disc desiccation and disc space narrowing are present at L5/S1. No significant paraspinal soft tissue abnormalities are detected. L1/L2 new: Unremarkable. L2/L3: Mild diffuse disc bulge is present with minimal neural foraminal narrowing particularly on the left. L3/L4: Diffuse disc bulge is present with no significant spinal canal narrowing. The neural foramen are patent. L4/L5: Diffuse disc bulge and bilateral facet arthropathy are present with moderate to severe left and moderate right recess narrowing. Moderate bilateral neural foraminal narrowing is present. L5/S1: There is an asymmetric disc and spur complex more apparent on the left with bilateral facet arthropathy. There is mild narrowing of the spinal canal. Moderate left neural foraminal narrowing is present. Impression: Multilevel degenerative sequelae as described most pronounced at L4/L5 on the left. Electronically Signed by Gustavo Hoagn DO 09/01/2019 08:08 A
--- NOTE | 2019-09-01 08:38 | IPNPDOC ---
Subjective Date Seen The patient was seen on 09/01/19. Subjective Chief Complaint/HPI rectal bleeding Events since last encounter patient noticed increase in bleeding through vaginal canal since resuming the Lovenox. Hgb dropped from 8.5 to 8.3. MR of spine completed, no signs of mets. + Degenerative changes. see full MRI report for further information Constitutional: Denies: Chills, Fever, Night Sweats ENT: Denies: Head Aches, Ear Pain, Dysphagia Pulmonary: Denies: Dyspnea, Cough Cardiovascular: Denies: Chest Pain, Palpitations, Orthopnea, Paroxysmal Noc. Dyspnea, Lt Headedness Gastrointestinal: Denies: Nausea, Vomiting, Abdominal Pain, Diarrhea, Constipation Objective Physical Examination General Exam: Positive: Alert, No Acute Distress Neck Exam: Positive: Supple; Negative: JVD, thyromegaly Chest Exam: Positive: Clear to auscultation, Normal air movement Heart Exam: Positive: Rate Normal, Regular Rhythm, Normal S1, Normal S2; Negative: Murmurs, Rubs Telemetry: Positive: No significant arrhythmia Abdomen Exam: Positive: Normal bowel sounds, Soft, Other (ostomy draining stool, no blood or coffee ground appearance. 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 Wong at 08/28/19 OV 2 RLE radic pain) (2) GI bleed Status: Acute Problem Text: most likely related to anti-coagulant +/- colonic mets . LMWH reduced for IBW and GFR (3) Anemia Status: Acute Problem Text: may not be able to tolerate any AC 2 recurrent GI bleed 09/01 8.2; therefore, Lovenox 100 to 80 SC QD 08/29 9.0 08/28 10.2 08/28 CHr 34/1.8, TS 20% (4) Colovaginal fistula Status: Acute Problem Text: as per rectal CA (5) Left leg DVT Status: Acute Problem Text: c ho PE, sp IVC filter on LMWH as per GI bleed (6) Diabetes mellitus, type 2 Status: Chronic Response to Treatment: Stable Problem Text: HD: deglun 30 QHS 09/01 + det 10 given AC BG high 100s-low 200s (7) CKD (chronic kidney disease), stage III Status: Chronic Response to Treatment: Stable Problem Text: at baseline Cr 1.3 Plan/VTE VTE Prophylaxis Ordered?: Yes Plan Therapy: PT Diagnostics: Repeat Labs in AM Anticipated Discharge: Home VS, I&O, 24H, Fishbone Vital Signs/I&O Vital Signs Date Time Temp Pulse Resp B/P (MAP) Pulse Ox O2 Delivery O2 Flow Rate FiO2 09/01/19 08:09 78 144/66 09/01/19 06:00 98.1 17 95 Room Air I&O- Last 24 Hours up to 6 AM 09/01/19 06:00 Intake Total 920 ml Output Total 250 ml Balance 670 ml Laboratory Data 24H LABS Laboratory Tests 2 08/31/19 11:58: Bedside Glucose (Misc Panel) 215H 08/31/19 20:40: Bedside Glucose (Misc Panel) 256H 09/01/19 05:26: Reticulocyte # (auto) 50.3, Nucleated Red Blood Cells % (auto) 0.0, Percent Reticulocyte Count 1.8H, Reticulocyte Hemoglobin Equivalent 33.6, Anion Gap 6L, Glomerular Filtration Rate 42.4, Calcium Level 8.8, Iron Level 34L, Total Iron Binding Capacity 171L, Transferrin % Saturation 19.9 CBC/BMP Laboratory Tests 09/01/19 05:26 Microbiology Microbiology 08/28/19 Urine Culture - Final, Complete Rani Blas Sep 01, 2019 08:38 Kenrick El M.D. Sep 01, 2019 18:18
[2019-09-01] MEDS: hydrOXYzine 25 MG TAB PO PRN ×2 (08:55→16:17)
[2019-09-01] MEDS: METHADONE 10 MG TAB (S0109) PO PRN (12:01)
[2019-09-01 14:00] VITALS: BP 110/57
[2019-09-01] MEDS: AMITRIPTYLINE 50 MG TAB PO SCH (21:09)
[2019-09-01] MEDS: GABAPENTIN 300 MG CAP PO SCH (21:09)
[2019-09-01] MEDS: LEVEMIR (INSULIN DETEMIR) 1 UNITS/0.01ML SC SCH (21:09)
[2019-09-01] MEDS: ENOXAPARIN 80 MG/0.8 ML SYRINGE (J1650) SC SCH (21:09)
[2019-09-01] MEDS: ATORVASTATIN 20 MG TAB PO SCH (21:10)
[2019-09-01 22:00] VITALS: BP 117/58
[2019-09-01 22:54] LABS: CLOSTRIDIUM DIFFICILE PCR NEGATIVE (NEGATIVE)
[2019-09-02] MEDS: SLF 3 ML SYR IV SCH ×3 (05:50→21:31)
[2019-09-02] MEDS: LEVOTHYROXINE 100MCG TABLET (0.1MG) PO SCH (05:50)
[2019-09-02 05:58] LABS: HEMATOCRIT 26.2 % (36.0-47.0); HEMOGLOBIN 8.3 g/dl (12.0-15.5); MEAN CORPUSCULAR HEMOGLOBIN 28.6 pg (27.0-33.0); MEAN CORPUSCULAR HGB CONC 31.7 g/dl (32.0-36.5); MEAN CORPUSCULAR VOLUME 90.3 fl (80.0-96.0); PLATELET COUNT, AUTOMATED 193 10^3/uL (150-450); WHITE BLOOD COUNT 7.6 10^3/uL (4.0-10.0)
[2019-09-02 06:00] VITALS: BP 135/65
[2019-09-02] MEDS: hydrOXYzine 25 MG TAB PO PRN ×2 (06:06→21:29)
[2019-09-02 06:23] LABS: CALCIUM LEVEL 8.6 MG/DL (8.8-10.2); CREATININE FOR GFR 1.38 MG/DL (0.55-1.30); GLOMERULAR FILTRATION RATE 40.2 (>39); POTASSIUM SERUM 4.5 MEQ/L (3.5-5.1)
[2019-09-02] MEDS: HumaLOG INSULIN (NovoLOG) PER UNIT SC SCH ×4 (08:07→21:00)
[2019-09-02 08:59] VITALS: BP 128/62
[2019-09-02] MEDS: MAGNESIUM OXIDE 400 MG TAB (MAG-OX) PO SCH ×2 (09:38→21:30)
[2019-09-02] MEDS: CARVedilol 6.25 MG TAB PO SCH ×2 (09:39→21:30)
--- NOTE | 2019-09-02 11:13 | IPNPDOC ---
Subjective Date Seen The patient was seen on 09/02/19. Subjective Chief Complaint/HPI Had some slight vaginal bleeding last night, but less this am. Otherwise without complaints Constitutional: Denies: Chills, Fever Pulmonary: Denies: Dyspnea, Cough Cardiovascular: Denies: Chest Pain, Palpitations Gastrointestinal: Denies: Nausea, Vomiting, Abdominal Pain, Diarrhea, Constipation Objective Physical Examination General Exam: Positive: Alert, No Acute Distress Neck Exam: Positive: Supple; Negative: JVD, thyromegaly Chest Exam: Positive: Clear to auscultation, Normal air movement Heart Exam: Positive: Rate Normal, Regular Rhythm, Normal S1, Normal S2; Negative: Murmurs, Rubs Telemetry: Positive: No significant arrhythmia Abdomen Exam: Positive: Normal bowel sounds, Soft, Other (ostomy draining stool, no blood or coffee ground appearance. 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 Wong at 08/28/19 OV 2 RLE radic pain) (2) GI bleed Status: Acute Problem Text: 09/02 - Hgb stable this am on Lower dose of LMWH (Previoulsy on 100 mg daily, Now on 80 mg daily as of 09/01) Monitor Hgb trend and bleeding on lower dos of LMWH until tomorrow. If Hgb remains stable, will continue current LMWH. May need periodic transfusions most likely related to anti-coagulant +/- colonic mets . LMWH reduced for IBW and GFR (3) Anemia Status: Acute Problem Text: may not be able to tolerate any AC 2 recurrent GI bleed 09/01 8.2; therefore, Lovenox 100 to 80 SC QD 08/29 9.0 08/28 10.2 08/28 CHr 34/1.8, TS 20% (4) Colovaginal fistula Status: Acute Problem Text: as per rectal CA (5) Left leg DVT Status: Acute Problem Text: c ho PE, sp IVC filter on LMWH as per GI bleed (6) Diabetes mellitus, type 2 Status: Chronic Response to Treatment: Stable Problem Text: HD: deglun 30 QHS 09/01 + det 10 given AC BG high 100s-low 200s (7) CKD (chronic kidney disease), stage III Status: Chronic Response to Treatment: Stable Problem Text: at baseline Cr 1.3 Plan/VTE VTE Prophylaxis Ordered?: Yes Plan Therapy: PT Diagnostics: Repeat Labs in AM Anticipated Discharge: Home Disposition safe fro d/c form PT standpoint today VS, I&O, 24H, Fishbone Vital Signs/I&O Vital Signs Date Time Temp Pulse Resp B/P (MAP) Pulse Ox O2 Delivery O2 Flow Rate FiO2 09/02/19 08:59 98.2 80 16 128/62 (84) 96 Room Air I&O- Last 24 Hours up to 6 AM0 09/02/19 06:00 Intake Total 1100 ml Output Total 200 ml Balance 900 ml Laboratory Data 24H LABS Laboratory Tests 2 09/01/19 11:31: Bedside Glucose (Misc Panel) 265H 09/01/19 16:20: Bedside Glucose (Misc Panel) 147H 09/01/19 20:40: Bedside Glucose (Misc Panel) 183H 09/01/19 21:20: Clostridium difficile [id number] PRESUMPTIVE NEGATIVE, Clostridium difficile Toxin (PCR) NEGATIVE 09/02/19 05:29: Nucleated Red Blood Cells % (auto) 0.0, Anion Gap 8, Glomerular Filtration Rate 40.2, Calcium Level 8.6L CBC/BMP Laboratory Tests 09/02/19 05:29 Microbiology Microbiology 08/28/19 Urine Culture - Final, Complete JAM PEARCE PA-C Sep 02, 2019 11:13
[2019-09-02] MEDS: METHADONE 10 MG TAB (S0109) PO PRN (11:56)
[2019-09-02 14:00] VITALS: BP 109/55
[2019-09-02 20:00] VITALS: BP 142/99
[2019-09-02] MEDS: GABAPENTIN 300 MG CAP PO SCH (21:30)
[2019-09-02] MEDS: AMITRIPTYLINE 50 MG TAB PO SCH (21:30)
[2019-09-02] MEDS: LEVEMIR (INSULIN DETEMIR) 1 UNITS/0.01ML SC SCH (21:31)
[2019-09-02] MEDS: ENOXAPARIN 80 MG/0.8 ML SYRINGE (J1650) SC SCH (21:31)
[2019-09-02] MEDS: ATORVASTATIN 20 MG TAB PO SCH (21:31)
[2019-09-02 22:00] VITALS: BP 150/69
[2019-09-03] VITALS (12 sets, daily range): BP systolic 118–145; BP diastolic 58–75
[2019-09-03 05:59] LABS: HEMATOCRIT 24.8 % (36.0-47.0); HEMOGLOBIN 7.8 g/dl (12.0-15.5); MEAN CORPUSCULAR HEMOGLOBIN 28.1 pg (27.0-33.0); MEAN CORPUSCULAR HGB CONC 31.5 g/dl (32.0-36.5); MEAN CORPUSCULAR VOLUME 89.2 fl (80.0-96.0); PLATELET COUNT, AUTOMATED 187 10^3/uL (150-450); RED BLOOD COUNT 2.78 10^6/uL (4.00-5.40)
[2019-09-03] MEDS: LEVOTHYROXINE 100MCG TABLET (0.1MG) PO SCH (06:11)
[2019-09-03] MEDS: SLF 3 ML SYR IV SCH ×3 (06:12→21:38)
[2019-09-03 06:21] LABS: CALCIUM LEVEL 8.3 MG/DL (8.8-10.2); CREATININE FOR GFR 1.43 MG/DL (0.55-1.30); GLOMERULAR FILTRATION RATE 38.6 (>39); POTASSIUM SERUM 4.6 MEQ/L (3.5-5.1)
[2019-09-03] MEDS: HumaLOG INSULIN (NovoLOG) PER UNIT SC SCH ×4 (08:00→21:00)
--- NOTE | 2019-09-03 09:14 | IPNPDOC ---
Subjective Date Seen The patient was seen on 09/03/19. Subjective Chief Complaint/HPI Patient reports considerable amount of vaginal bleeding overnight. No blood in ostomy No Lightheadedness or SOB or CP Constitutional: Denies: Chills, Fever Pulmonary: Denies: Dyspnea, Cough Cardiovascular: Denies: Chest Pain, Palpitations Gastrointestinal: Denies: Nausea, Vomiting, Abdominal Pain, Diarrhea, Constipation, Melena, Hematochezia Genitourinary: Denies: Hematuria Objective Physical Examination General Exam: Positive: Alert, No Acute Distress Neck Exam: Positive: Supple; Negative: JVD, thyromegaly Chest Exam: Positive: Clear to auscultation, Normal air movement Heart Exam: Positive: Rate Normal, Regular Rhythm, Normal S1, Normal S2; Negative: Murmurs, Rubs Telemetry: Positive: No significant arrhythmia Abdomen Exam: Positive: Normal bowel sounds, Soft, Other (ostomy draining stool, no blood or coffee ground appearance. ); Negative: Tenderness Psych Exam: Positive: Mental status NL, Mood NL, Oriented x 3 Assessment /Plan Problems (1) GI bleed Status: Acute Problem Text: anti-coagulation is CONTRAINDICATED given active GI bleeding (patient bleeding WITHOUT AC nor AP) 2 to anti-coagulant +/- colonic mets, colovesicular fistula 09/03 10 am - patient reports increased vag bleeding this am since 900; therefore, dced LMWH (whihc had been reduced for IBW and GFR) 09/03 - Hgb has drifted down from 8.3 to 7.8 overnight. Still with fair amount of vaginal bleeding on lower dose of Lovenox 80 mg daily as of 09/01. Transfusion consent obtained. 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 Status post left femur fracture after a traumatic fall 07/20/2019 and status post left hemiarthroplasty. Now in acute rehabilitation. Improving with mobility. 09/01/19: MRI LS: Impression: Multilevel degenerative sequelae as described most pronounced at L4/L5 on the left (s evidence of met) 08/31/19 MRI LS c franca ordered inpx (had been ordered by Dr. Wong at 08/28/19 OV 2 RLE radic pain) (3) Anemia Status: Acute Problem Text: as per GI bleed (4) Colovaginal fistula Status: Acute Problem Text: as per rectal CA (5) Left leg DVT Status: Acute Problem Text: c ho PE, sp IVC filter Left lower extremity deep venous thrombosis (DVT) in the setting of chronic left lower extremity edema. Likely due to a left pelvic mass impeding venous return on LMWH as per GI bleed (apix previous to this) (6) Diabetes mellitus, type 2 Status: Chronic Response to Treatment: Stable Problem Text: HD: deglun 30 QHS 09/03 increased to 18 09/01 + det 10 given AC BG high 100s-low 200s (7) CKD (chronic kidney disease), stage III Status: Chronic Response to Treatment: Stable Problem Text: at baseline Cr 1.3 (8) Physical deconditioning Status: Chronic Response to Treatment: Stable Problem Text: 09/02 safe to dc home per PT Plan/VTE VTE Prophylaxis Ordered?: Yes Plan Therapy: PT Diagnostics: Repeat Labs in AM Anticipated Discharge: Home VS, I&O, 24H, Fishbone Vital Signs/I&O Vital Signs Date Time Temp Pulse Resp B/P (MAP) Pulse Ox O2 Delivery O2 Flow Rate FiO2 09/03/19 06:00 97.2 74 20 133/67 (89) 100 09/02/19 14:00 Room Air I&O- Last 24 Hours up to 6 AM 09/03/19 06:00 Intake Total 1660 ml Output Total 1250 ml Balance 410 ml Laboratory Data 24H LABS Laboratory Tests 2 09/02/19 11:47: Bedside Glucose (Misc Panel) 277H 09/02/19 16:42: Bedside Glucose (Misc Panel) 161H 09/02/19 21:05: Bedside Glucose (Misc Panel) 222H 09/03/19 05:46: Nucleated Red Blood Cells % (auto) 0.0, Anion Gap 6L, Glomerular Filtration Rate 38.6L, Calcium Level 8.3L CBC/BMP Laboratory Tests 09/03/19 05:46 Microbiology Microbiology 09/02/19 Stool Occult Blood (CHIDI) - Final, Complete 08/28/19 Urine Culture - Final, Complete JAM PEARCE PA-C Sep 03, 2019 09:14 Kenrick El M.D. Sep 03, 2019 16:39
[2019-09-03] MEDS: NS 1,000 ML IV SCH (09:59)
[2019-09-03] MEDS: CARVedilol 6.25 MG TAB PO SCH ×2 (10:50→21:30)
[2019-09-03] MEDS: hydrOXYzine 25 MG TAB PO PRN (10:51)
[2019-09-03] MEDS: MAGNESIUM OXIDE 400 MG TAB (MAG-OX) PO SCH ×2 (10:51→21:28)
[2019-09-03] MEDS ORDERED: SODIUM CHLORIDE 0.9% INJ 10 ML SYR IV PRN (12:30)
[2019-09-03] MEDS ORDERED: LEVEMIR (INSULIN DETEMIR) 1 UNITS/0.01ML SC SCH (21:00)
[2019-09-03] MEDS: GABAPENTIN 300 MG CAP PO SCH (21:28)
[2019-09-03] MEDS: AMITRIPTYLINE 50 MG TAB PO SCH (21:28)
[2019-09-03] MEDS: ATORVASTATIN 20 MG TAB PO SCH (21:29)
[2019-09-03] MEDS: METHADONE 10 MG TAB (S0109) PO PRN (21:34)
[2019-09-04 06:00] VITALS: BP 151/72
[2019-09-04] MEDS: LEVOTHYROXINE 100MCG TABLET (0.1MG) PO SCH (06:00)
[2019-09-04] MEDS: SLF 3 ML SYR IV SCH ×2 (06:01→13:17)
[2019-09-04] MEDS: hydrOXYzine 25 MG TAB PO PRN (06:03)
[2019-09-04 06:20] LABS: HEMATOCRIT 31.3 % (36.0-47.0); HEMOGLOBIN 10.2 g/dl (12.0-15.5); MEAN CORPUSCULAR HEMOGLOBIN 28.8 pg (27.0-33.0); MEAN CORPUSCULAR HGB CONC 32.6 g/dl (32.0-36.5); MEAN CORPUSCULAR VOLUME 88.4 fl (80.0-96.0); PLATELET COUNT, AUTOMATED 175 10^3/uL (150-450); RED BLOOD COUNT 3.54 10^6/uL (4.00-5.40); WHITE BLOOD COUNT 7.2 10^3/uL (4.0-10.0)
[2019-09-04 06:45] LABS: CALCIUM LEVEL 8.7 MG/DL (8.8-10.2); CREATININE FOR GFR 1.42 MG/DL (0.55-1.30); GLOMERULAR FILTRATION RATE 38.9 (>39); PERCENT SATURATION 21.9 % (13.2-45.0); POTASSIUM SERUM 4.8 MEQ/L (3.5-5.1)
[2019-09-04] MEDS: NS 1,000 ML IV SCH (08:24)
[2019-09-04] MEDS: MAGNESIUM OXIDE 400 MG TAB (MAG-OX) PO SCH (08:26)
[2019-09-04 08:27] VITALS: BP 115/75
[2019-09-04] MEDS: CARVedilol 6.25 MG TAB PO SCH (08:27)
[2019-09-04] MEDS: HumaLOG INSULIN (NovoLOG) PER UNIT SC SCH ×2 (08:28→12:26)
[2019-09-04] MEDS ORDERED: SODIUM CHLORIDE 0.9% INJ 10 ML SYR IV SCH (09:00)
--- NOTE | 2019-09-08 12:12 | DSES ---
DATE OF ADMISSION: 08/28/2019 DATE OF DISCHARGE: 09/04/2019 BRIEF HISTORY AND PHYSICAL: The patient is a 69-year-old patient of Dr. Merchant with a history of metastatic rectal carcinoma to the liver, lung and pelvis, ARI wild type, BRAF negative, mismatch repair stable, HER2 amplified. treated for progression of disease with chemotherapy at [facility]. She has had a left femoral fracture in July 2019 and a left common femoral deep vein thrombosis and left greater saphenous deep vein thrombosis. IVC was placed and she was started on Lovenox. She presented complaining of bright red blood gushing out of her rectum. She has received 2 units of packed red blood cells two weeks ago. She reports that she had clots on the day of admission and lightheadedness and had fallen to the floor. No chest pain or chest pressure. No nausea, vomiting or abdominal pain. No fever or chills. She has also been having dark, almost black discharge through a vaginal fistula for which she has been followed by Dr. Barber, who told her there was no surgical management available to her. PAST MEDICAL HISTORY: As above, as well as, type 2 diabetes, hypothyroidism, methicillin-resistant staph aureus, vulvar abscess, hyperlipidemia, pulmonary embolus in 2016 after a liver resection, and chronic kidney disease. HOSPITAL COURSE: The patient was admitted for vaginal and rectal bleeding on Lovenox, symptomatic with dizziness and lightheadedness and a fall at home. Hemoglobin was 9.7 and hematocrit 31 in the emergency room with systolic pressure of 152. The patient's blood thinner was held initially. It was thought perhaps she would tolerate a lower dose so her Lovenox 100 was cut down to 80; however, she continued to have a significant amount of vaginal bleeding on this, and so the Lovenox was stopped completely. Her hemoglobin did drift down to 7.8. She was transfused 2 units of packed red blood cells on 09/03/2019. Her hemoglobin on 09/04/2019 was 10.2 and her vaginal bleeding had improved. At this point, she is felt stable for discharge home. Dr. Barber saw her in consultation regarding the fistula, but he did not feel she was a surgical candidate given recurrent metastatic rectal cancer. Dr. El was going to communicate to Dr. Merchant and Dr. Wong to update them on the fact that she is no longer on anticoagulation and defer decisions regarding management of her medical issues to them. She will need followup of her hemoglobin closely as an outpatient as well. DISPOSITION: She is stable for discharge home. Follow up with Dr. Merchant next week. Followup with Dr. Wong per her office. MEDICATIONS: Acetaminophen 1000 mg daily. amitriptyline 50 mg at bedtime, atorvastatin 10 mg daily, carvedilol 6.25 mg twice a day, Benadryl 25 mg daily as needed for itching, gabapentin 600 mg at bedtime, Tresiba 30 units at bedtime, levothyroxine 100 mcg daily, loperamide 2 mg every 6 hours as needed for diarrhea, magnesium 400 mg twice a day, methadone 5 mg every 12 hours as needed, Nystatin topically as needed, Zofran 8 mg three times a day as needed, oxycodone 5 mg four times a day as needed for pain. Her Lovenox has been discontinued. DISCHARGE DIAGNOSES: 1. Gastrointestinal (GI) blood loss anemia. 2. Adenocarcinoma of the rectum metastatic to the pelvis. 3. History of left lower extremity deep vein thrombosis. 4. Diabetes mellitus type 2. 5. Chronic kidney disease. 6. Colovaginal fistula.
== END 2019-09-04 13:55 | disposition home health service (06) | DRG 813 ==
LOC: M ED 12:13 → M ED INP 14:34 → M PCU 21:15 → M MSPAV 08-31 18:33
PROVIDERS: ADMIT General Practice; ATTEND Family Medicine
PROC: 30233N1 Transfusion of Nonautologous Red Blood Cells into Peripheral Vein, Percutaneous Approach (ICD-10-PCS; principal; 2019-09-03)
DX: D68.32 Hemorrhagic disorder due to extrinsic circulating anticoagulants (principal); C20 Malignant neoplasm of rectum; C78.7 Secondary malignant neoplasm of liver and intrahepatic bile duct; C78.00 Secondary malignant neoplasm of unspecified lung; C79.51 Secondary malignant neoplasm of bone; N82.3 Fistula of vagina to large intestine; K62.5 Hemorrhage of anus and rectum; E11.22 Type 2 diabetes mellitus with diabetic chronic kidney disease; E03.9 Hypothyroidism, unspecified; E78.5 Hyperlipidemia, unspecified; Z86.711 Personal history of pulmonary embolism; Z86.14 Personal history of Methicillin resistant Staphylococcus aureus infection; N18.3 Chronic kidney disease, stage 3 (moderate); Z90.49 Acquired absence of other specified parts of digestive tract; Z88.6 Allergy status to analgesic agent; Z88.8 Allergy status to other drugs, medicaments and biological substances; Z93.3 Colostomy status; Z79.891 Long term (current) use of opiate analgesic; Z79.899 Other long term (current) drug therapy; Z87.891 Personal history of nicotine dependence; Z95.828 Presence of other vascular implants and grafts; Z86.718 Personal history of other venous thrombosis and embolism

== ENCOUNTER → 2019-09-29 | Outpatient (CLI) | payer MEDICARE ==
[~2019-09-29] MED LIST changes: +BENA25CA4 PO; -HumaLOG INSULIN (NovoLOG) PER UNIT SC SCH; +LOPE2CA PO; +LOVE0.8I3 SC; +OXYC-517 PO; +SODIUM CHLORIDE 0.9% INJ 10 ML SYR IV PRN; -VALS1TAB49 PO; +VALS40TA9 PO; +ZOFR8TAB24 PO
[2019-09-29 10:36] LABS: BASO # 0.1 10^3/uL (0.0-0.2); BASO % 0.6 % (0.0-1.0); EOS # 0.5 10^3/uL (0.0-0.5); EOS % 6.1 % (0.0-3.0); HEMATOCRIT 28.1 % (36.0-47.0); HEMOGLOBIN 8.8 g/dl (12.0-15.5); LYMPH # 0.7 10^3/uL (1.5-5.0); LYMPH % 8.2 % (24.0-44.0); MEAN CORPUSCULAR HEMOGLOBIN 28.9 pg (27.0-33.0); MEAN CORPUSCULAR HGB CONC 31.3 g/dl (32.0-36.5); MEAN CORPUSCULAR VOLUME 92.1 fl (80.0-96.0); MONO # 0.5 10^3/uL (0.0-0.8); MONO % 5.3 % (0.0-5.0); NEUTROPHILS % 78.9 % (36.0-66.0); PLATELET COUNT, AUTOMATED 159 10^3/uL (150-450); RED BLOOD COUNT 3.05 10^6/uL (4.00-5.40); WHITE BLOOD COUNT 8.8 10^3/uL (4.0-10.0)
[2019-09-29 12:04] LABS: ALBUMIN 3.1 GM/DL (3.2-5.2); CALCIUM LEVEL 8.3 MG/DL (8.8-10.2); CREATININE FOR GFR 1.87 MG/DL (0.55-1.30); GLOMERULAR FILTRATION RATE 28.3 (>39); POTASSIUM SERUM 4.5 MEQ/L (3.5-5.1); TOTAL PROTEIN 6.6 GM/DL (6.4-8.2)
== END ==
LOC: M ONCM 09:46
DX: Z79.899 Other long term (current) drug therapy (principal)

== ENCOUNTER → 2019-10-05 | Outpatient (REF) | payer MEDICARE ==
[~2019-10-05] MED LIST changes: -SODIUM CHLORIDE 0.9% INJ 10 ML SYR IV PRN
[2019-10-05 14:40] LABS: BASO % 0.6 % (0.0-1.0); EOS # 0.6 10^3/uL (0.0-0.5); EOS % 8.8 % (0.0-3.0); HEMATOCRIT 26.6 % (36.0-47.0); HEMOGLOBIN 8.4 g/dl (12.0-15.5); LYMPH # 0.7 10^3/uL (1.5-5.0); LYMPH % 10.2 % (24.0-44.0); MEAN CORPUSCULAR HEMOGLOBIN 29.6 pg (27.0-33.0); MEAN CORPUSCULAR HGB CONC 31.6 g/dl (32.0-36.5); MEAN CORPUSCULAR VOLUME 93.7 fl (80.0-96.0); MONO # 0.5 10^3/uL (0.0-0.8); MONO % 7.8 % (0.0-5.0); NEUTROPHILS # 4.7 10^3/uL (1.5-8.5); NEUTROPHILS % 72.3 % (36.0-66.0); PLATELET COUNT, AUTOMATED 129 10^3/uL (150-450); RED BLOOD COUNT 2.84 10^6/uL (4.00-5.40); WHITE BLOOD COUNT 6.5 10^3/uL (4.0-10.0)
[2019-10-05 15:06] LABS: BILIRUBIN,TOTAL 1.1 MG/DL (0.2-1.0); CALCIUM LEVEL 9.1 MG/DL (8.8-10.2); CREATININE FOR GFR 2.06 MG/DL (0.55-1.30); GLOMERULAR FILTRATION RATE 25.3 (>39); POTASSIUM SERUM 4.3 MEQ/L (3.5-5.1); TOTAL PROTEIN 7.1 GM/DL (6.4-8.2)
== END ==
LOC: M SHH 13:43
DX: C20 Malignant neoplasm of rectum (principal)

== ENCOUNTER → 2019-10-22 | Outpatient (REF) | payer MEDICARE ==
[2019-10-22 12:25] LABS: AMORPHOUS SEDIMENT SMALL (NEGATIVE); APPEARANCE, URINE CLOUDY (CLEAR); BACTERIA, URINE AUTO NEGATIVE (NEGATIVE); BILIRUBIN, URINE AUTO NEGATIVE (NEGATIVE); BLOOD, URINE BLOOD 2+ (NEGATIVE); COLOR, URINE YELLOW (YELLOW); GLUCOSE, URINE (UA) AUTO NEGATIVE (NEGATIVE); KETONE, URINE AUTO NEGATIVE (NEGATIVE); LEUKOCYTE ESTERASE, URINE AUTO 3+ (NEGATIVE); MUCUS, URINE SMALL (NEGATIVE); NITRITE, URINE AUTO NEGATIVE (NEGATIVE); PROTEIN, URINE AUTO NEGATIVE (NEGATIVE); RBC, URINE AUTO 52 /HPF (0-3); SQUAMOUS EPITHELIAL CELL UR AU 1 /HPF (0-6); UROBILINOGEN, URINE AUTO 0.2 mg/dL (0.0-2.0); WBC, URINE AUTO TNTC /HPF (0-3)
[2019-10-22 12:29] LABS: BASO % 0.9 % (0.0-1.0); EOS # 0.4 10^3/uL (0.0-0.5); EOS % 9.5 % (0.0-3.0); HEMATOCRIT 25.9 % (36.0-47.0); HEMOGLOBIN 8.2 g/dl (12.0-15.5); LYMPH # 0.8 10^3/uL (1.5-5.0); MEAN CORPUSCULAR HGB CONC 31.7 g/dl (32.0-36.5); MEAN CORPUSCULAR VOLUME 94.9 fl (80.0-96.0); MONO # 0.3 10^3/uL (0.0-0.8); MONO % 7.3 % (0.0-5.0); NEUTROPHILS % 65.1 % (36.0-66.0); RED BLOOD COUNT 2.73 10^6/uL (4.00-5.40); WHITE BLOOD COUNT 4.7 10^3/uL (4.0-10.0)
[2019-10-22 12:43] LABS: ALBUMIN 3.1 GM/DL (3.2-5.2); CALCIUM LEVEL 8.4 MG/DL (8.8-10.2); CREATININE FOR GFR 1.4 MG/DL (0.55-1.30); GLOMERULAR FILTRATION RATE 39.6 (>39); MAGNESIUM LEVEL 1.8 MG/DL (1.8-2.4); POTASSIUM SERUM 4.2 MEQ/L (3.5-5.1); TOTAL PROTEIN 6.9 GM/DL (6.4-8.2)
== END ==
LOC: M LAB REF 11:47
DX: R39.9 Unspecified symptoms and signs involving the genitourinary system (principal)

== ENCOUNTER → 2019-12-08 | Outpatient (POV) | payer MEDICARE ==
[~2019-12-08] VITALS: Ht 157.5 cm; Wt 90.9 kg
[~2019-12-08] MED LIST changes: +ONDA8TAB10 PO; -ONDA8TAB7 PO
[2019-12-08 08:45] VITALS: BP 129/66
--- NOTE | 2019-12-09 09:06 | IRPN ---
[facility] IR Progress Note IR Progress Note DATE: Dec 08, 2019 FOLLOW-UP: 69-year-old female with metastatic colon cancer status post filter placement last July for DVT and concurrent hip fracture requiring surgery. Patient has since recovered from surgery and started oral anticoagulation with Eliquis. However this is intermittently stopped due to vaginal bleeding and internal hemorrhage related to cancer. Currently patient is on Eliquis for the past 1 month. Vaginal bleeding can be on and off and torrential at times. Patient follows-up with oncology at [facility] in [place]. Denies calf swelling, chest pain or shortness of breath. ON EXAMINATION: Patient comfortable at rest. Alert and oriented. Moving all 4 extremities. No shortness of breath. IMPRESSION: Doing well status post IVC filter placement for lower extremity deep vein thrombosis and initial contraindication to anticoagulation While patient's initial contraindication to anticoagulation including hip surgery is now resolved, patient continues to intermittently hemorrhage and is taken off blood thinners. Therefore at this time I think it's best to keep the filter in place should the patient again have to come off blood thinners. We will reevaluate in 6 months for filter removal. Thank you for this referral Cc Dr. Byrne. [facility] oncology Cc Patricia Manrique CC Saleem Allergies Coded Allergies: aspirin (Verified Allergy, Severe, ANAPHYLAXIS, 01/07/19) Contrast Media (Verified Allergy, Unknown, itching for days, 11/19/18) atenolol (Verified Adverse Reaction, Intermediate, NAUSEA AND DIZZINESS, 01/07/19) lisinopril (Verified Adverse Reaction, Intermediate, VERY DIZZY, 01/07/19) VS,Fishbone, I+O VS, Fishbone, I+O Vital Signs Date Time Temp Pulse Resp B/P (MAP) Pulse Ox O2 Delivery O2 Flow Rate FiO2 12/08/19 08:45 97.7 76 18 129/66 (87) 97 Room Air ELIZA ARMENDARIZ MD Dec 09, 2019 09:06
== END ==
LOC: M IRPOV 08:27
PROVIDERS: ATTEND Radiology Diagnostic Radiology
DX: C18.9 Malignant neoplasm of colon, unspecified (principal); Z95.828 Presence of other vascular implants and grafts; Z86.718 Personal history of other venous thrombosis and embolism; Z79.01 Long term (current) use of anticoagulants

== ENCOUNTER 2020-04-02 19:56 | Inpatient (IN) | payer MEDICARE ==
[~2020-04-02] VITALS: Ht 157.5 cm; Wt 92.8 kg
[~2020-04-02 19:56] MED LIST changes: +GABA-282 PO; -GABA-843 PO; -MAG400TA PO; +MAGN400T35 PO; +OXYC-1 PO; -OXYC15TA76 PO
[2020-04-02] MEDS ORDERED: NS 1,000 ML IV ONE (21:00)
[2020-04-02] MEDS ORDERED: METOCLOPRAMIDE INJ 10MG/2ML VIAL (J2765 PER 1) IV ONE (21:00)
[2020-04-02 22:33] LABS: BASO % 0.1 % (0.0-1.0); EOS # 0.3 10^3/uL (0.0-0.5); EOS % 3.9 % (0.0-3.0); HEMATOCRIT 29.9 % (36.0-47.0); LYMPH # 0.8 10^3/uL (1.5-5.0); LYMPH % 11.4 % (24.0-44.0); MEAN CORPUSCULAR HEMOGLOBIN 32.5 pg (27.0-33.0); MEAN CORPUSCULAR HGB CONC 33.4 g/dl (32.0-36.5); MEAN CORPUSCULAR VOLUME 97.1 fl (80.0-96.0); MONO # 0.4 10^3/uL (0.0-0.8); MONO % 5.3 % (0.0-5.0); NEUTROPHILS # 5.7 10^3/uL (1.5-8.5); NEUTROPHILS % 78.6 % (36.0-66.0); RED BLOOD COUNT 3.08 10^6/uL (4.00-5.40); WHITE BLOOD COUNT 7.2 10^3/uL (4.0-10.0)
[2020-04-02 22:47] LABS: INR 1.22; PROTHROMBIN TIME 15.1 SECONDS (11.8-14.0)
[2020-04-02 22:48] LABS: PARTIAL THROMBOPLASTIN TIME 32.3 SECONDS (25.0-38.4)
[2020-04-02 22:58] LABS: ALBUMIN 3.7 GM/DL (3.2-5.2); ALT/SGPT 33 U/L (12-78); BILIRUBIN,DIRECT 0.3 MG/DL (0.0-0.2); BILIRUBIN,TOTAL 1.1 MG/DL (0.2-1.0); BLOOD UREA NITROGEN 33 MG/DL (7-18); CALCIUM LEVEL 8.3 MG/DL (8.8-10.2); CARBON DIOXIDE LEVEL 24 MEQ/L (21-32); CHLORIDE LEVEL 106 MEQ/L (98-107); CK-MB VALUE MASS 2.3 NG/ML (<3.6); CPK CREATINE PHOSPHOKINASE 76 U/L (26-192); CREATININE FOR GFR 2.02 MG/DL (0.55-1.30); GLOMERULAR FILTRATION RATE 25.9 (>39); GLUCOSE, FASTING 162 MG/DL (70-100); LIPASE 66 U/L (73-393); MB/CK RELATIVE INDEX 3.03 (< OR =4); SODIUM LEVEL 136 MEQ/L (136-145); TOTAL PROTEIN 6.6 GM/DL (6.4-8.2); TROPONIN I < 0.02 NG/ML (< 0.10)
[2020-04-02 23:10] LABS: PLATELET COUNT, AUTOMATED 143 10^3/uL (150-450)
[2020-04-02] MEDS ORDERED: MAALOX 30 ML SUSP *UDC PO ONE (23:45)
[2020-04-02] MEDS: READI-CAT 2 PO SCH (23:53)
[2020-04-03] MEDS: READI-CAT 2 PO SCH (00:50)
--- NOTE | 2020-04-03 02:19 | REPVR ---
PROCEDURE INFORMATION: Exam: CT Abdomen And Pelvis Without Contrast Exam date and time: 04/03/2020 2:12 AM Age: 69 years old Clinical indication: Abdominal pain; Generalized; Prior surgery; Additional info: Abd pain, hematochezia, HX of colon CA, colostomy TECHNIQUE: Imaging protocol: Computed tomography of the abdomen and pelvis without contrast. Radiation optimization: All CT scans at this facility use at least one of these dose optimization techniques: automated exposure control; mA and/or kV adjustment per patient size (includes targeted exams where dose is matched to clinical indication); or iterative reconstruction. COMPARISON: CT CHEST/ABD/PELVIS W/ CONTRAST - OUTSIDE PRIOR 11/19/2019 10:09 AM FINDINGS: Lungs: No suspicious mass or airspace process in the visualized lung bases. Heart: Small pericardial effusion. Liver: Partial hepatectomy involving the left lobe, with suture line. Stable small benign right lobe cysts. Gallbladder and bile ducts: Gallbladder is surgically absent. Pancreas: Noncontrast pancreas shows no obvious mass or adjacent fluid. Spleen: Noncontrast spleen shows no obvious focal deformity. Adrenals: Adrenal glands are normal in appearance. Kidneys and ureters: Left kidney is relatively atrophic. Right kidney is normal in size. No evidence of right renal or ureter stone. No perinephric stranding or fluid. Stomach and bowel: Left lower quadrant colostomy is present, with partial colectomy. There may be mild wall thickening involving the distal colonic segment just proximal to the ostomy, circumferentially. Terminal ileum has normal appearance. Appendix: Normal caliber appendix is identified, with no adjacent inflammation. Intraperitoneal space: No pneumoperitoneum. Vasculature: Infrarenal IVC filter is present. Atherosclerotic change present in the aorta, without aneurysm. Bladder: Urinary bladder appears normal. Reproductive: No enlargement of the uterus or ovaries. Bones/joints: Left hip mark arthroplasty is noted incidentally. No concerning osseous abnormality. Soft tissues: Unremarkable. Other findings: Limited evaluation without enteric or IV contrast. IMPRESSION: Partial left hemicolectomy with left lower quadrant colostomy. Circumferential mural edema proximal to the colostomy suggesting a focal inflammatory or infectious process without obstruction. Electronically signed by: Nilay Whitfield On 04/03/2020 02:19:08 AM
[2020-04-03] MEDS ORDERED: LOPE1CAP5 PO (04:23)
[2020-04-03] MEDS ORDERED: HYDR12CA PO (04:23)
[2020-04-03] MEDS ORDERED: SYNT112T2 PO (04:23)
--- NOTE | 2020-04-03 04:36 | HPEPDOC ---
[facility] Medical History & Physical Date of Admission Apr 03, 2020 Date of Service: Apr 03, 2020 Attending Physician: DARLING IRAHETA MD History and Physical CHIEF COMPLAINT: Abdominal pain HISTORY OF PRESENT ILLNESS: 69-year-old female with past medical history of recurrent colon cancer, status post left hemicolectomy, currently on chemotherapy, bilateral PEs, diabetes mellitus, hypothyroidism, hypertension and hyperlipidemia presents from home with abdominal pain. Nonradiating, with associated nausea and dizziness. Patient reports similar pain in the past but usually resolves quickly, which is why the duration of pain concerned the patient and she came to the hospital. Patient was recently experiencing from constipation which resolved earlier today and followed with watery stool in the ostomy. Ostomy in the ER was noted to have loose stool with blood mixed in. Patient denies any previous history of blood in her stool, she also noticed it for the first time in the emergency department. She does report prior history of vaginal/rectal bleeding, 3 weeks ago secondary to Xarelto which she hasn't taken since then. She is otherwise comfortable in bed, denies any shortness of breath, chest pain, urinary complaints or headaches. 10 point review of system is negative except for above PAST MEDICAL HISTORY: 1. Colon cancer. 2. Bilateral PEs. 3. Diabetes mellitus. 4. Hypothyroidism 5. Hypertension. 6. Hyperlipidemia PAST SURGICAL HISTORY: 1. Left hemicolectomy. 2. Hemiarthroplasty. SOCIAL HISTORY: Previous smoker. Social alcohol use. Denies drug use FAMILY HISTORY: Positive for heart disease in her father ALLERGIES: Please see below. HOME MEDICATIONS: Please see below. PHYSICAL EXAMINATION: VITAL SIGNS: Please see below. GENERAL: No distress, morbidly obese HEENT: Normocephalic, atraumatic, moist mucous membranes NECK: Supple CARDIOVASCULAR EXAMINATION: S1, S2, no murmurs RESPIRATORY EXAMINATION: Scattered rhonchi, poor air movement, diminished the basis, no wheezing ABDOMINAL EXAMINATION: Soft, nontender, nondistended, positive bowel sounds, ostomy with blood-tinged loose brown stool EXTREMITIES: Range of motion intact SKIN: No rash NEUROLOGICAL EXAMINATION: Alert and oriented 3, no focal deficits PSYCHIATRIC EXAMINATION: Calm and cooperative LABORATORY DATA: See below. IMAGING: CT abdomen and pelvis colonic swelling proximal to colostomy MICROBIOLOGY: Please see below. ASSESSMENT: 69-year-old female with multiple medical comorbidities including rec urrent colon cancer PE and recent bleeding secondary to Xarelto is being admitted for colitis and possible lower GI bleeding. PLAN: 1. Colitis. Patient presented with abdominal pain, CT abdomen and pelvis showing inflammation of colon proximal to the colostomy, infectious versus inflammatory, ceftriaxone/Flagyl, IV fluids, GI panel negative, cultures pending. 2. Questionable GI bleed. Patient found to have blood-tinged loose stool in the emergency department, first time as per patient, H&H stable, will trend, has had rectal/vaginal bleeding 3 weeks ago secondary to Xarelto use, which has been held since then. Consider GI consultation if bleeding persists for possible colonoscopy. 3. History of bilateral PEs. No longer a candidate for anticoagulation due to history of bleeding, status post IVC filter. 4. Diabetes mellitus. Sliding scale insulin coverage with meals and at bedtime. 5. Acute on chronic kidney disease. Likely secondary to dehydration and medications, hold hydrochlorothiazide, gentle IV hydration, will monitor. 6. Hypothyroidism. Continue levothyroxine DVT prophylaxis: SCDs. GI prophylaxis: PPI Vital Signs Vital Signs Date Time Temp Pulse Resp B/P (MAP) Pulse Ox O2 Delivery O2 Flow Rate FiO2 04/02/20 23:09 04/02/20 20:44 75 79 82 04/02/20 20:41 98 04/02/20 19:58 98.1 18 Room Air Laboratory Data Labs 24H Laboratory Tests 2 04/02/20 21:52: Immature Granulocyte % (Auto) 0.7, Neutrophils (%) (Auto) 78.6H, Lymphocytes (%) (Auto) 11.4L, Monocytes (%) (Auto) 5.3H, Eosinophils (%) (Auto) 3.9H, Basophils (%) (Auto) 0.1, Neutrophils # (Auto) 5.7, Lymphocytes # (Auto) 0.8L, Monocytes # (Auto) 0.4, Eosinophils # (Auto) 0.3, Basophils # (Auto) 0.0, Nucleated Red Blood Cells % (auto) 0.0, Prothrombin Time 15.1H, Prothromb Time International Ratio 1.22, Activated Partial Thromboplast Time 32.3, Anion Gap 6L, Glomerular Filtration Rate 25.9L, Lactic Acid Level 1.6, Calcium Level 8.3L, Total Bilirubi n 1.1H, Direct Bilirubin 0.3H, Aspartate Amino Transf (AST/SGOT) 16, Alanine Aminotransferase (ALT/SGPT) 33, Alkaline Phosphatase 83, Total Creatine Kinase 76, Creatine Kinase MB 2.3, Creatine Kinase MB Relative Index 3.03, Troponin I < 0.02, Total Protein 6.6, Albumin 3.7, Albumin/Globulin Ratio 1.3, Lipase 66L 04/02/20 22:33: Urine Color YELLOW, Urine Appearance HAZY, Urine pH 9.0, Urine Specific [place] 1.011, Urine Protein NEGATIVE, Urine Glucose (UA) NEGATIVE, Urine Ketones NEGATIVE, Urine Blood 1+H, Urine Nitrite NEGATIVE, Urine Bilirubin NEGATIVE, Urine Urobilinogen 0.2, Urine Leukocyte Esterase 2+H, Urine WBC (Auto) 4H, Urine RBC (Auto) 8H, Urine Hyaline Casts (Auto) 0, Urine Bacteria (Auto) 1+H, Urine Squamous Epithelial Cells 0, Urine Amorphous Sediment SMALLH, Urine Mucus (Auto) SMALL, Urine Sperm (Auto) CBC/BMP Laboratory Tests 04/02/20 21:52 Microbiology Microbiology 04/02/20 Urine Culture, Received Pending 04/02/20 Gastrointestinal Tract Panel (PCR) - Final, Complete 04/02/20 Blood Culture, Received Pending Home Medications Scheduled Atorvastatin Calcium (Atorvastatin Calcium) 10 Mg Tab, 10 MG PO DAILY Carvedilol (Carvedilol) 6.25 Mg Tablet, 6.25 MG PO BID Gabapentin (Gabapentin) 300 Mg Capsule, 600 MG PO QHS Hydrochlorothiazide (Hydrochlorothiazide) 12.5 Mg Capsule, 12.5 MG PO DAILY Insulin Degludec (Tresiba Flextouch U-100) 100 Unit/1 Ml Insuln.pen, 30 UNIT SC QHS Levothyroxine Sodium (Synthroid) 112 Mcg Tablet, 112 MCG PO DAILY Scheduled PRN Acetaminophen (Acetaminophen) 500 Mg Tablet, 1,000 MG PO Q6H PRN for PAIN Diphenhydramine HCl (Benadryl) 25 Mg Capsule, 25 MG PO DAILY PRN for ITCHING Loperamide HCl (Loperamide) 2 Mg Capsule, 2 MG PO Q6H PRN for AFTER EACH LOOSE STOOL Nystatin (Nystatin Powder) 15 Gm Powder, 1 DOSE TOP BID PRN for ITCHING APPLY TO ABDOMINAL FOLDS, UNDER BREASTS, AND GROIN AREA Ondansetron HCl (Zofran) 8 Mg Tablet, 8 MG PO TID PRN for NAUSEA OR VOMITING Allergies Coded Allergies: aspirin (Verified Allergy, Severe, ANAPHYLAXIS, 01/07/19) Contrast Media (Verified Allergy, Unknown, itching for days, 11/19/18) atenolol (Verified Adverse Reaction, Intermediate, NAUSEA AND DIZZINESS, 01/07/19) lisinopril (Verified Adverse Reaction, Intermediate, VERY DIZZY, 01/07/19) A-FIB/CHADSVASC A-FIB History Current/History of A-Fib/PAF?: No DARLING IRAHETA MD Apr 03, 2020 04:36
[2020-04-03] MEDS ORDERED: DEXTROSE 50% 50 ML SYRINGE IV PRN (04:45)
[2020-04-03] MEDS ORDERED: GLUCOSE 4GM CHEW TABLET PO PRN (04:45)
[2020-04-03] MEDS ORDERED: GLUCAGON INJ 1MG VIAL SC PRN (04:45)
[2020-04-03 06:00] VITALS: BP 163/86
[2020-04-03] MEDS: NS 1,000 ML IV SCH ×2 (06:18→17:47)
[2020-04-03] MEDS: GABAPENTIN 300 MG CAP PO SCH ×2 (06:19→21:24)
[2020-04-03] MEDS: metroNIDAZOLE (FLAGYL) 500MG TABLET PO SCH ×3 (06:19→21:24)
[2020-04-03] MEDS ORDERED: HumaLOG INSULIN (NovoLOG) PER UNIT SC SCH ×3 (07:30→21:00)
[2020-04-03] MEDS: HumaLOG INSULIN (NovoLOG) PER UNIT SC SCH ×4 (07:54→21:00)
[2020-04-03] MEDS: PANTOPRAZOLE 40MG VIAL (C9113 PER 1) IV SCH (08:54)
[2020-04-03] MEDS: ATORVASTATIN 10 MG TAB PO SCH (08:54)
[2020-04-03] MEDS: cefTRIAXone SOD 1 GM in D5W MINI-BAG PLUS 50 ML IV SCH (08:54)
[2020-04-03] MEDS: LEVOTHYROXINE 112MCG TABLET (0.112MG) PO SCH (08:54)
[2020-04-03] MEDS: CARVedilol 6.25 MG TAB PO SCH ×2 (08:56→21:25)
[2020-04-03 10:24] LABS: BASO % 0.3 % (0.0-1.0); EOS # 0.2 10^3/uL (0.0-0.5); EOS % 3.3 % (0.0-3.0); HEMATOCRIT 29.8 % (36.0-47.0); LYMPH # 0.8 10^3/uL (1.5-5.0); LYMPH % 13.3 % (24.0-44.0); MEAN CORPUSCULAR HEMOGLOBIN 32.6 pg (27.0-33.0); MEAN CORPUSCULAR HGB CONC 33.6 g/dl (32.0-36.5); MEAN CORPUSCULAR VOLUME 97.1 fl (80.0-96.0); MONO # 0.3 10^3/uL (0.0-0.8); MONO % 5.4 % (0.0-5.0); NEUTROPHILS # 4.9 10^3/uL (1.5-8.5); NEUTROPHILS % 77.2 % (36.0-66.0); RED BLOOD COUNT 3.07 10^6/uL (4.00-5.40); WHITE BLOOD COUNT 6.3 10^3/uL (4.0-10.0)
[2020-04-03 10:52] LABS: ALBUMIN 3.6 GM/DL (3.2-5.2); BILIRUBIN,TOTAL 1.2 MG/DL (0.2-1.0); CALCIUM LEVEL 7.8 MG/DL (8.8-10.2); CREATININE FOR GFR 1.93 MG/DL (0.55-1.30); GLOMERULAR FILTRATION RATE 27.3 (>39); POTASSIUM SERUM 3.8 MEQ/L (3.5-5.1); TOTAL PROTEIN 6.4 GM/DL (6.4-8.2)
--- NOTE | 2020-04-03 13:01 | IPNPDOC ---
Text Note Date of Service The patient was seen on 04/03/20. NOTE Subjective: Patient is a 69-year-old female with a PMHx Recurrent colon cancer (s/p L hemicolectomy, chemotherapy), Bilateral PEs, HTN, DLP, DM2, Hypothy roidism, who presented to ER with abdominal pain. Patient reported that she was initially experiencing constipation that had resolved earlier after she has taken a stool softener. After she noted increased output from her ostomy and came to the emergency room for further evaluation because of her abdominal pain. In the emergency room, patient was found to have stool mixed with blood. Patient was admitted to the hospitalist service for further evaluation and treatment. Patient was seen and examined at the bedside. Patient reports her abdominal pain is doing better. She denies nausea, vomiting, chest pain, shortness of breath or palpitations. Patient is asking if she can eat. Objective: Vitals (See below) General: Lying in bed, no acute distress, comfortable, AAOx3 HEENT: NC, AT CVS: +S1S2 Lungs: Fair air entry b/l, no wheezing / rhonchi / crackles Abdomen: Soft, ND, NT, Colostomy (mild red tinged output noted) Extremities: - Edema, - Calf tenderness Assessment and plan: Abdominal pain - possibly 2/2 colitis - Presented to the emergency room with complaints of abdominal pain and was found to have some bloody discharge in her ostomy - Patient is hemodynamically stable and afebrile - Hemoglobin appears to be at baseline and stable - GI panel 04/02: Negative - CT abdomen / pelvis 04/03: Partial left hemicolectomy with left lower quadrant colostomy. Circumferential mural edema proximal to the colostomy suggesting a focal inflammatory or infectious process without obstruction. - c/w Ceftriaxone and Flagyl (Day #1) - Will advance diet to clear liquids only at this time Questionable GI bleed - Blood tinged output from ostomy - Will continue to trend H&H - Will transfuse as needed - If bleeding persist, will consult GI for possible endoscopy Blood cultures positive - Currently patient is hemodynamically stable and afebrile - Blood cultures repeated - c/w antibiotics (see above) Recurrent colon cancer - s/p L hemicolectomy - Currently on chemotherapy - Follows with oncology as an outpatient Bilateral PEs - s/p IVC filter placement, 07/2019 - Has been taken off anticoagulation 3 weeks ago 2/2 rectal / vaginal bleed - Has not started anticoagulation since that point HTN - c/w Carvedilol with holding parameters DLP - c/w Atorvastatin DM2 - c/w ISS Hypothyroidism - c/w Levothyroxine GI prophylaxis - c/w Protonix DVT prophylaxis - c/w TEDs/Sequentials VS,Fishbone, I+O VS, Fishbone, I+O Laboratory Tests 04/02/20 21:52 04/03/20 10:02 Vital Signs Date Time Temp Pulse Resp B/P (MAP) Pulse Ox O2 Delivery O2 Flow Rate FiO2 04/03/20 08:56 55 155/87 04/03/20 06:00 99.8 16 99 Room Air I&O- Last 24 Hours up to 6 AM 04/03/20 06:00 Intake Total 1000 ml Balance 1000 ml MC CARABALLO MD Apr 03, 2020 13:01
[2020-04-03 14:00] VITALS: BP 133/73
[2020-04-03 17:01] LABS: HEMATOCRIT 29.8 % (36.0-47.0)
[2020-04-03] MEDS: SUCRALFATE SUSP 1GM/10ML UD PO SCH (17:46)
[2020-04-03] MEDS: ACETAMINOPHEN 500 MG TAB PO PRN (21:24)
[2020-04-03 22:00] VITALS: BP 138/72
[2020-04-03] MEDS ORDERED: diphenhydrAMINE 25MG CAP PO ONE (22:30)
[2020-04-04] MEDS: SUCRALFATE SUSP 1GM/10ML UD PO SCH ×5 (00:30→23:45)
[2020-04-04] MEDS: metroNIDAZOLE (FLAGYL) 500MG TABLET PO SCH ×3 (05:56→21:25)
[2020-04-04] MEDS: NS 1,000 ML IV SCH ×2 (05:56→18:05)
[2020-04-04 06:00] VITALS: BP 128/71
[2020-04-04 06:32] LABS: HEMATOCRIT 28.5 % (36.0-47.0); HEMOGLOBIN 9.2 g/dl (12.0-15.5); MEAN CORPUSCULAR HEMOGLOBIN 32.3 pg (27.0-33.0); MEAN CORPUSCULAR HGB CONC 32.3 g/dl (32.0-36.5); PLATELET COUNT, AUTOMATED 111 10^3/uL (150-450); RED BLOOD COUNT 2.85 10^6/uL (4.00-5.40)
[2020-04-04 07:28] LABS: ALBUMIN 3.1 GM/DL (3.2-5.2); BILIRUBIN,TOTAL 1.1 MG/DL (0.2-1.0); CALCIUM LEVEL 7.7 MG/DL (8.8-10.2); CREATININE FOR GFR 1.55 MG/DL (0.55-1.30); GLOMERULAR FILTRATION RATE 35.2 (>39); MAGNESIUM LEVEL 2.1 MG/DL (1.8-2.4); POTASSIUM SERUM 3.6 MEQ/L (3.5-5.1); TOTAL PROTEIN 5.9 GM/DL (6.4-8.2)
[2020-04-04] MEDS: ATORVASTATIN 10 MG TAB PO SCH (08:33)
[2020-04-04] MEDS: LEVOTHYROXINE 112MCG TABLET (0.112MG) PO SCH (08:33)
[2020-04-04] MEDS: CARVedilol 6.25 MG TAB PO SCH ×2 (08:34→21:25)
[2020-04-04] MEDS: PANTOPRAZOLE 40MG VIAL (C9113 PER 1) IV SCH (08:35)
[2020-04-04] MEDS: HumaLOG INSULIN (NovoLOG) PER UNIT SC SCH ×4 (08:35→21:00)
[2020-04-04] MEDS: cefTRIAXone SOD 1 GM in D5W MINI-BAG PLUS 50 ML IV SCH (08:36)
[2020-04-04 12:09] LABS: HEMATOCRIT 28.3 % (36.0-47.0); HEMOGLOBIN 9.3 g/dl (12.0-15.5)
--- NOTE | 2020-04-04 12:53 | IPNPDOC ---
Text Note Date of Service The patient was seen on 04/04/20. NOTE Subjective: Patient is a 69-year-old female with a PMHx Recurrent colon cancer (s/p L hemicolectomy, chemotherapy), Bilateral PEs, HTN, DLP, DM2, Hypothy roidism, who presented to ER with abdominal pain. Patient reported that she was initially experiencing constipation that had resolved earlier after she has taken a stool softener. After she noted increased output from her ostomy and came to the emergency room for further evaluation because of her abdominal pain. In the emergency room, patient was found to have stool mixed with blood. Patient was admitted to the hospitalist service for further evaluation and treatment. Patient was seen and examined at the bedside. Patient reports that she feels fine. Denies any abdominal pain, nausea, vomiting, output from her ostomy has improved. There is no red tinged output. Denies any chest pain, shortness breath or palpitations. Objective: Vitals (See below) General: Lying in bed, remains comfortable, AAOx3 HEENT: NC, AT CVS: +S1S2 Lungs: Air entry is fair bilaterally, without evidence of rhonchi, crackles or wheezing Abdomen: Soft, nondistended and nontender, Colostomy (clear output noted today) Extremities: No evidence of lower extremity edema, - Calf tenderness Assessment and plan: Abdominal pain - possibly 2/2 colitis - Presented to the ER with complaints of abdominal pain and was found to have some bloody discharge in her ostomy - Patient is hemodynamically stable and afebrile - Hg has remained stable; has not required any transfusions - GI panel 04/02: Negative - CT abdomen / pelvis 04/03: Partial left hemicolectomy with left lower quadrant colostomy. Circumferential mural edema proximal to the colostomy suggesting a focal inflammatory or infectious process without obstruction. - c/w Ceftriaxone and Flagyl (Day #2) - Will continue to advance diet to consistent carbohydrates Questionable GI bleed - Blood tinged output from ostomy; currently has become clear/liquid - Will continue to trend H&H - Hemoglobin is at baseline compared to the last 3 years Blood cultures positive - Currently patient is hemodynamically stable and afebrile - Blood cultures 04/02 @2152: Preliminary positive for gram positive cocci in chains; called laboratory - no specific speciation is available at this time - Blood cultures 04/03 @0610: Negative at 24 hours - Blood cultures 04/03 @1442/1314: Pending - Will order ECHO - c/w antibiotics (see above) - If speciation does reveal true gram-positive bacteremia, will consult infectious disease Recurrent colon cancer - s/p L hemicolectomy - Currently on chemotherapy; discussed with patient's oncologist/staff nurse; Christiano Sullivan - will resume immunotherapy - Resume immunotherapy - Follows with oncology as an outpatient Bilateral PEs - s/p IVC filter placement, 07/2019 - Has been taken off anticoagulation 3 weeks ago 2/2 rectal / vaginal bleed - Has not started anticoagulation since that point HTN - c/w Carvedilol with holding parameters DLP - c/w Atorvastatin DM2 - c/w ISS Hypothyroidism - c/w Levothyroxine GI prophylaxis - c/w Protonix DVT prophylaxis - c/w TEDs/Sequentials Disposition: - Discussed blood cultures with bacteriology - Will await for speciation prior to discharge VS,Fishbone, I+O VS, Fishbone, I+O Laboratory Tests 04/03/20 16:48 04/04/20 06:04 04/04/20 10:53 Vital Signs Date Time Temp Pulse Resp B/P (MAP) Pulse Ox O2 Delivery O2 Flow Rate FiO2 04/04/20 08:34 72 147/78 04/04/20 06:00 98.4 16 97 Room Air I&O- Last 24 Hours up to 6 AM 04/04/20 06:00 Intake Total 720 ml Output Total 1400 ml Balance -680 ml MC CARABALLO MD Apr 04, 2020 12:53
[2020-04-04 14:00] VITALS: BP 154/79
--- NOTE | 2020-04-04 15:21 | ECGEPIP ---
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
[2020-04-04] MEDS: diphenhydrAMINE 25MG CAP PO PRN ×2 (16:05→23:45)
[2020-04-04] MEDS: GABAPENTIN 300 MG CAP PO SCH (21:25)
[2020-04-04 22:00] VITALS: BP 152/70
[2020-04-05] MEDS ORDERED: UNRESOLVED PATIENT OWN MED ORDER XX SCH (00:01)
[2020-04-05] MEDS: SUCRALFATE SUSP 1GM/10ML UD PO SCH ×3 (05:04→17:20)
[2020-04-05] MEDS: diphenhydrAMINE 25MG CAP PO PRN ×2 (05:04→09:18)
[2020-04-05] MEDS: metroNIDAZOLE (FLAGYL) 500MG TABLET PO SCH ×2 (05:04→12:17)
[2020-04-05] MEDS: ACETAMINOPHEN 500 MG TAB PO PRN (05:06)
[2020-04-05] MEDS: NS 1,000 ML IV SCH (05:08)
[2020-04-05 06:00] VITALS: BP 147/73
[2020-04-05] MEDS ORDERED: VANCOMYCIN HCL 750 MG, VIAL MATE ADAPTER 1 EACH in D5W 250 ML IV ONE ×2 (07:00→08:00)
[2020-04-05 07:01] LABS: HEMOGLOBIN 8.4 g/dl (12.0-15.5); MEAN CORPUSCULAR HEMOGLOBIN 32.9 pg (27.0-33.0); MEAN CORPUSCULAR HGB CONC 33.6 g/dl (32.0-36.5); PLATELET COUNT, AUTOMATED 110 10^3/uL (150-450); RED BLOOD COUNT 2.55 10^6/uL (4.00-5.40); WHITE BLOOD COUNT 5.1 10^3/uL (4.0-10.0)
--- NOTE | 2020-04-05 07:02 | PHACANCOPD ---
PHARMACY VANCOMYCIN DOSING Pt Demographics Demographics Patient Age:69 , Weight:92.800 , Gender: female Adjusted Body Weight Date: 04/05/20, Adjusted Body Weight: Kg Vancomycin Vancomycin indication: BACTEREMIA Vancomycin Target Ranges: 15-20 mcg/ml Vancomycin Load Y/N: Yes Load Dose Date Time Vancomycin Load Dose: 1.5GM Date: 04/05 Time: 7-8:00 Vancomycin Dose Date: 04/05/20. Current Vancomycin Dose: [1GM Q24H] Intermittent Dosing?: No Labs Micro Microbiology 04/03/20 Blood Culture - Preliminary, Resulted No growth after 24 hours . All specim... 04/03/20 Blood Culture - Preliminary, Resulted No growth after 24 hours . All specim... 04/03/20 Blood Culture - Preliminary, Resulted No Growth after 48 hours. All Specime... 04/02/20 Urine Culture, Received Pending 04/02/20 Gastrointestinal Tract Panel (PCR) - Final, Complete 04/02/20 Blood Culture - Final, Complete Enterococcus Faecalis Creatinine Clearance Date:04/05/20. Creatinine Clearance: [~26]. Assessment and Plan Maintaining Current Dose?: Yes Reason for dose change: No Dose Change Pharmacist Note Pharmacist Note Date: 04/05/20. Pharmacist note:Patient w/bacteremia(trough goal 15-20). ABX regimen= Caftriaxone 1 GM IV Q24H and Pharmacy dosed Vancomycin. 1.5 gm load this am @7-8:00,then 1 gram IV Q24H@20:00. First trough is scheduled for 04/07@19:00 [facility]AS[facility] Apr 05, 2020 07:02
[2020-04-05 07:18] LABS: CALCIUM LEVEL 7.8 MG/DL (8.8-10.2); CREATININE FOR GFR 1.55 MG/DL (0.55-1.30); GLOMERULAR FILTRATION RATE 35.2 (>39); POTASSIUM SERUM 3.9 MEQ/L (3.5-5.1)
[2020-04-05] MEDS: ATORVASTATIN 10 MG TAB PO SCH (08:09)
[2020-04-05] MEDS: PANTOPRAZOLE 40MG VIAL (C9113 PER 1) IV SCH (08:09)
[2020-04-05] MEDS: LEVOTHYROXINE 112MCG TABLET (0.112MG) PO SCH (08:09)
[2020-04-05] MEDS: CARVedilol 6.25 MG TAB PO SCH ×2 (08:11→21:30)
[2020-04-05] MEDS: HumaLOG INSULIN (NovoLOG) PER UNIT SC SCH ×4 (08:12→21:00)
--- NOTE | 2020-04-05 08:53 | ECHO ---
DATE OF STUDY: 04/04/2020 REFERRING PHYSICIAN: Eric Mabry MD INDICATION: Sepsis. HEIGHT: 157 cm. WEIGHT: 93 kg. 2D MEASUREMENTS: LVOT: 2.0 cm Left atrium: 4.0 cm Aortic root: 2.9 cm Ventricular septum: 1.04 cm Posterior wall: 1.04 cm Left ventricle diastole: 4.6 cm Inferior vena cava: 1.4 cm DOPPLER MEASUREMENTS: No aortic regurgitation. Aortic valve velocity: 149 cm/s LVOT velocity: 117 cm/s LVOT VTI: 29.4 cm No mitral regurgitation. Mitral E velocity: 105 cm/s Mitral A velocity: 88.6 cm/s Mitral desaturation time: 254 ms Trace tricuspid regurgitation. No pulmonic regurgitation. Pulmonary acceleration time: 127 ms MITRAL ANNULAR TISSUE DOPPLER: E prime lateral: 5.7 cm/s E prime septal: 7.4 cm/s DESCRIPTION: Rhythm was sinus. Image quality was fair. This was a 2D, M-mode, color flow Doppler and pulse wave Doppler examination and included mitral annular tissue Doppler. CONCLUSIONS: 1. Hyperdynamic LV systolic function. Left ventricular ejection fraction (LVEF) 75% by visual estimate. Probably normal LV diastolic function. Normal LV internal dimensions and wall thickness. 2. Mild left atrial dilatation. 3. Mild mitral annular calcification. No mitral regurgitation. 4. Mild aortic valve sclerosis of a three-cuspid aortic valve. No aortic regurgitation. 5. Small pericardial effusion. No diastolic chamber collapse. Pericardial effusion measured 6 mm over the posterior wall of the left ventricle.
[2020-04-05] MEDS: cefTRIAXone SOD 1 GM in D5W MINI-BAG PLUS 50 ML IV SCH (09:59)
[2020-04-05 14:00] VITALS: BP 150/70
[2020-04-05 18:13] LABS: HEMATOCRIT 25.8 % (36.0-47.0); HEMOGLOBIN 8.5 g/dl (12.0-15.5); MEAN CORPUSCULAR HEMOGLOBIN 32.6 pg (27.0-33.0); MEAN CORPUSCULAR HGB CONC 32.9 g/dl (32.0-36.5); MEAN CORPUSCULAR VOLUME 98.9 fl (80.0-96.0); RED BLOOD COUNT 2.61 10^6/uL (4.00-5.40); WHITE BLOOD COUNT 4.7 10^3/uL (4.0-10.0)
--- NOTE | 2020-04-05 18:20 | IPNPDOC ---
Date Seen The patient was seen on 04/05/20. Progress Note SUBJECTIVE: 69-year-old female with past medical history of recurrent colon cancer, status post left hemicolectomy, currently on chemotherapy, bilateral PEs, diabetes mellitus, hypothyroidism, hypertension and hyperlipidemia was initially admitted for possible colitis and GI bleed. Patient has remained stable throughout hospitalization, currently comfortable in bed, without any complaints at this time. She denies any shortness of breath, chest pain, nausea, vomiting, diarrhea or abdominal pain. 10 point review of systems negative except for above PHYSICAL EXAMINATION: VITAL SIGNS: Please see below. GENERAL: No distress HEENT: Normocephalic, atraumatic, moist mucous membranes NECK: Supple CARDIOVASCULAR EXAMINATION: S1, S2, no murmurs RESPIRATORY EXAMINATION: Clear to auscultation, no wheezing ABDOMINAL EXAMINATION: Soft, nontender, nondistended, positive bowel sounds, ostomy with nonbloody stool present EXTREMITIES: Range of motion intact SKIN: No rash NEUROLOGICAL EXAMINATION: Alert and oriented 3, no focal deficits PSYCHIATRIC EXAMINATION: Calm and cooperative LABORATORY DATA, IMAGING STUDIES, MICROBIOLOGY: Please see below. ASSESSMENT AND PLAN: 69-year-old female with multiple medical comorbidities, was admitted for possible colitis versus GI bleed. PROBLEMS: 1. Possible colitis: Presented with abdominal pain and imaging showing swelling of colon proximal to colostomy, clinically improved, no signs of systemic infection, we'll discontinue ceftriaxone/Flagyl at this time as swelling was likely inflammatory. 2. Questionable GI bleed: At the time of presentation, patient had a hint of blood mixed with her stool in the ostomy, no recurrences since then, patient is trending down, we'll monitor. Continue PPI and Carafate 3. Bacteremia: Initial blood cultures growing enterococcus, repeat cultures negative, questionable contamination as patient was on ceftriaxone, which doesn't treat enterococcus, will discuss with infectious disease, continue vancomycin for now. 4. Diabetes mellitus: Continue sliding scale insulin coverage with meals and at bedtime. DVT prophylaxis: SCDs. GI prophylaxis: PPI/Carafate VS, I&O, 24H, Fishbone Vital Signs/I&O Vital Signs Date Time Temp Pulse Resp B/P (MAP) Pulse Ox O2 Delivery O2 Flow Rate FiO2 04/05/20 14:00 97.7 80 18 150/70 (96) 97 Room Air I&O- Last 24 Hours up to 6 AM 04/05/20 06:00 Intake Total 1680 ml Output Total 967 ml Balance 713 ml Laboratory Data 24H LABS Laboratory Tests 2 04/04/20 20:29: Bedside Glucose (Misc Panel) 175H 04/05/20 06:07: Bedside Glucose (Misc Panel) 158H 04/05/20 06:41: Nucleated Red Blood Cells % (auto) 0.0, Anion Gap 6L, Glomerular Filtration Rate 35.2L, Calcium Level 7.8L 04/05/20 11:38: Bedside Glucose (Misc Panel) 186H 04/05/20 16:39: Bedside Glucose (Misc Panel) 149H CBC/BMP Laboratory Tests 04/05/20 06:41 Microbiology Microbiology 04/03/20 Blood Culture - Preliminary, Resulted No Growth after 48 hours. All Specime... 04/03/20 Blood Culture - Preliminary, Resulted No Growth after 48 hours. All Specime... 04/03/20 Blood Culture - Preliminary, Resulted No Growth after 48 hours. All Specime... 04/02/20 Urine Culture - Final, Complete Corynebacterium Species 04/02/20 Gastrointestinal Tract Panel (PCR) - Final, Complete 04/02/20 Blood Culture - Final, Complete Enterococcus Faecalis DARLING IRAHETA MD Apr 05, 2020 17:50
[2020-04-05] MEDS ORDERED: VANCOMYCIN HCL 1,000 MG, VIAL MATE ADAPTER 1 EACH in D5W 250 ML IV SCH (20:00)
[2020-04-05] MEDS: GABAPENTIN 300 MG CAP PO SCH (21:30)
[2020-04-05 22:00] VITALS: BP 163/76
[2020-04-05] MEDS: [UNRECOGNIZED DRUG - OTHER] PO SCH (22:55)
[2020-04-06] MEDS ORDERED: SODIUM CHLORIDE 0.9% INJ 10 ML SYR IV PRN (01:00)
[2020-04-06] MEDS: SUCRALFATE SUSP 1GM/10ML UD PO SCH ×3 (01:08→12:22)
[2020-04-06 06:00] VITALS: BP 148/64
[2020-04-06 06:16] LABS: HEMATOCRIT 25.4 % (36.0-47.0); HEMOGLOBIN 8.6 g/dl (12.0-15.5); MEAN CORPUSCULAR HEMOGLOBIN 33.1 pg (27.0-33.0); MEAN CORPUSCULAR HGB CONC 33.9 g/dl (32.0-36.5); MEAN CORPUSCULAR VOLUME 97.7 fl (80.0-96.0); PLATELET COUNT, AUTOMATED 104 10^3/uL (150-450); WHITE BLOOD COUNT 4.2 10^3/uL (4.0-10.0)
[2020-04-06 06:40] LABS: CALCIUM LEVEL 7.9 MG/DL (8.8-10.2); CREATININE FOR GFR 1.46 MG/DL (0.55-1.30); GLOMERULAR FILTRATION RATE 37.7 (>39); POTASSIUM SERUM 3.9 MEQ/L (3.5-5.1)
[2020-04-06] MEDS ORDERED: SODIUM CHLORIDE 0.9% INJ 10 ML SYR IV SCH (09:00)
[2020-04-06 10:03] VITALS: BP 148/64
[2020-04-06] MEDS: CARVedilol 6.25 MG TAB PO SCH (10:03)
[2020-04-06] MEDS: ATORVASTATIN 10 MG TAB PO SCH (10:03)
[2020-04-06] MEDS: PANTOPRAZOLE 40MG VIAL (C9113 PER 1) IV SCH (10:03)
[2020-04-06] MEDS: LEVOTHYROXINE 112MCG TABLET (0.112MG) PO SCH (10:03)
[2020-04-06] MEDS: [UNRECOGNIZED DRUG - OTHER] PO SCH (10:05)
[2020-04-06] MEDS: HumaLOG INSULIN (NovoLOG) PER UNIT SC SCH ×2 (10:16→12:23)
[2020-04-06] MEDS ORDERED: PROT1TAB2 PO (11:46)
--- NOTE | 2020-04-06 13:00 | DS.PDOC ---
Discharge Summary General Date of Admission Apr 03, 2020 at 04:19 Date of Discharge 04/06/2020 Attending Physician: DARLING IRAHETA MD Discharge Summary PROCEDURES PERFORMED DURING STAY: None. ADMITTING DIAGNOSES: 1. Colitis, possible GI bleeding, acute on chronic kidney disease. DISCHARGE DIAGNOSES: 1. Colitis, possible GI bleeding, acute on chronic kidney disease. COMPLICATIONS/CHIEF COMPLAINT: Colitis. HISTORY OF PRESENT ILLNESS: 69-year-old female with past medical history of metastatic colon cancer was initially admitted for colitis. Imaging showed edema of colon proximal to her ostomy, possibly related to infection/inflammation. She was started on antibiotics, her initial symptoms of abdominal pain resolved quickly and she has been asymptomatic throughout hospitalization. She has not shown any further clinical signs of infection, labs showed acute on chronic k idney disease but no signs of infection, kidney injury, resolved with IV hydration. Her initial blood cultures were positive for enterococcus, repeat cultures have been negative. She was on ceftriaxone, which is ineffective against enterococcus and despite that her repeat cultures have remained negative for over 72 hours. It was likely contamination, clinically remains stable and at baseline, antibiotics discontinued and patient will be discharged home with outpatient follow-up. Of note, patient had blood-tinged stool in her ostomy and having small amount of rectal/vaginal bleeding, H&H stable, reports previous history of fistula and similar bleeding 3 weeks ago when she was started on anticoagulation. Due to the minimal nature of bleeding. Patient is advised to follow with PCP/GI/[facility]ATE SPLITTER in the outpatient setting, no longer on any anticoagulation. HOSPITAL COURSE: As above. DISCHARGE MEDICATIONS: Please see below. ALLERGIES: Please see below. PHYSICAL EXAMINATION: VITAL SIGNS: Please see below. GENERAL: No distress HEENT: Normocephalic, atraumatic, moist mucous membranes NECK: Supple CARDIOVASCULAR EXAMINATION: S1, S2, no murmurs RESPIRATORY EXAMINATION: Clear to auscultation, no wheezing ABDOMINAL EXAMINATION: Soft, nontender, nondistended, positive bowel sounds, ostomy with nonbloody stool present EXTREMITIES: Range of motion intact SKIN: No rash NEUROLOGICAL EXAMINATION: Alert and oriented 3, no focal deficits PSYCHIATRIC EXAMINATION: Calm and cooperative LABORATORY DATA: Please see below. IMAGING: CT abdomen and pelvis showing edema of colon proximal to colostomy PROGNOSIS: Fair ACTIVITY: As tolerated. DIET: Cardiac DISCHARGE PLAN: Follow with oncologist PCP, [facility] S[facility]ITTER and dye mixer in 1-2 weeks DISPOSITION: Home. DISCHARGE INSTRUCTIONS: 1. As above. DISCHARGE CONDITION: Stable. TIME SPENT ON DISCHARGE: Greater than 30 minutes. Vital Signs/I&Os Vital Signs Date Time Temp Pulse Resp B/P (MAP) Pulse Ox O2 Delivery O2 Flow Rate FiO2 04/06/20 10:03 66 148/64 04/06/20 06:00 98.7 16 97 Room Air I&O- Last 24 Hours up to 6 AM 04/06/20 06:00 Intake Total 3150 ml Output Total 1575 ml Balance 1575 ml Laboratory Data Labs 24H Laboratory Tests 2 04/05/20 16:39: Bedside Glucose (Misc Panel) 149H 04/05/20 17:47: Nucleated Red Blood Cells % (auto) 0.0 04/05/20 20:19: Bedside Glucose (Misc Panel) 208H 04/06/20 05:56: Nucleated Red Blood Cells % (auto) 0.0, Anion Gap 5L, Glomerular Filtration Rate 37.7L, Calcium Level 7.9L 04/06/20 11:30: Bedside Glucose (Misc Panel) 200H CBC/BMP Laboratory Tests 04/05/20 17:47 04/06/20 05:56 FSBS Laboratory Tests Test 04/05/20 16:39 04/05/20 20:19 04/06/20 11:30 Range/Units Bedside Glucose (Misc Panel) 149 208 200 83-110 MG/DL Microbiology Microbiology 04/03/20 Blood Culture - Preliminary, Resulted No Growth after 48 hours. All Specime... 04/03/20 Blood Culture - Preliminary, Resulted No Growth after 48 hours. All Specime... 04/03/20 Blood Culture - Preliminary, Resulted No Growth after 72 hours. All specime... 04/02/20 Urine Culture - Final, Complete Corynebacterium Species 04/02/20 Gastrointestinal Tract Panel (PCR) - Final, Complete 04/02/20 Blood Culture - Final, Complete Enterococcus Faecalis Discharge Medications Scheduled Atorvastatin Calcium (Atorvastatin Calcium) 10 Mg Tab, 10 MG PO DAILY, (Reported) Carvedilol (Carvedilol) 6.25 Mg Tablet, 6.25 MG PO BID, (Reported) Gabapentin (Gabapentin) 300 Mg Capsule, 600 MG PO QHS, (Reported) Hydrochlorothiazide (Hydrochlorothiazide) 12.5 Mg Capsule, 12.5 MG PO DAILY, (Reported) Insulin Degludec (Tresiba Flextouch U-100) 100 Unit/1 Ml Insuln.pen, 30 UNIT SC QHS, (Reported) Levothyroxine Sodium (Synthroid) 112 Mcg Tablet, 112 MCG PO DAILY, (Reported) Pantoprazole Sodium (Protonix) 40 Mg Tablet.dr, 1 TAB PO DAILY Scheduled PRN Acetaminophen (Acetaminophen) 500 Mg Tablet, 1,000 MG PO Q6H PRN for PAIN, (Reported) Diphenhydramine HCl (Benadryl) 25 Mg Capsule, 25 MG PO DAILY PRN for ITCHING, (Reported) Loperamide HCl (Loperamide) 2 Mg Capsule, 2 MG PO Q6H PRN for AFTER EACH LOOSE STOOL, (Reported) Nystatin (Nystatin Powder) 15 Gm Powder, 1 DOSE TOP BID PRN for ITCHING, (Reported) APPLY TO ABDOMINAL FOLDS, UNDER BREASTS, AND GROIN AREA Ondansetron HCl (Zofran) 8 Mg Tablet, 8 MG PO TID PRN for NAUSEA OR VOMITING, (Reported) Allergies Coded Allergies: aspirin (Verified Allergy, Severe, ANAPHYLAXIS, 01/07/19) Contrast Media (Verified Allergy, Unknown, itching for days, 11/19/18) atenolol (Verified Adverse Reaction, Intermediate, NAUSEA AND DIZZINESS, 01/07/19) lisinopril (Verified Adverse Reaction, Intermediate, VERY DIZZY, 01/07/19) DARLING IRAHETA MD Apr 06, 2020 13:00
[2020-05-05] MEDS ORDERED: BACT800T5 PO (08:26)
[2020-09-22] MEDS ORDERED: OXYB5TAB10 PO (15:17)
[2020-10-21] MEDS ORDERED: MACR100C43 PO (08:52)
[2020-10-21] MEDS ORDERED: ONDA8TAB10 PO (08:52)
[2020-10-24] MEDS ORDERED: ONDA8TAB8 PO (10:43)
[2020-10-24] MEDS ORDERED: PROC10TA4 PO (10:43)
== END 2020-04-06 14:17 | disposition home or self-care (01) | DRG 392 ==
LOC: M ED 19:56 → M ED INP 04-03 04:19 → ENRESERVDT 04-03 05:06 → ENRESERVTM 04-03 05:06 → M MSPAV 04-03 05:49
PROVIDERS: ADMIT Internal Medicine; ATTEND Internal Medicine
DX: K52.9 Noninfective gastroenteritis and colitis, unspecified (principal); C18.9 Malignant neoplasm of colon, unspecified; E11.22 Type 2 diabetes mellitus with diabetic chronic kidney disease; E03.9 Hypothyroidism, unspecified; I12.9 Hypertensive chronic kidney disease with stage 1 through stage 4 chronic kidney disease, or unspecified chronic kidney disease; E78.5 Hyperlipidemia, unspecified; Z90.49 Acquired absence of other specified parts of digestive tract; Z86.711 Personal history of pulmonary embolism; Z87.891 Personal history of nicotine dependence; Z93.3 Colostomy status; E86.0 Dehydration; N18.9 Chronic kidney disease, unspecified; Z79.4 Long term (current) use of insulin; Z79.899 Other long term (current) drug therapy; Z88.6 Allergy status to analgesic agent; Z88.8 Allergy status to other drugs, medicaments and biological substances; Z91.041 Radiographic dye allergy status

== ENCOUNTER → 2020-04-12 | Outpatient (REF) | payer MEDICARE ==
[~2020-04-12] MED LIST changes: -GABA-282 PO; +GABA-843 PO; +HYDR12CA PO; +MAG400TA PO; -MAGN400T35 PO; +PROT1TAB2 PO; +SYNT112T2 PO
== END ==
LOC: M SFHCCLAY 11:21
PROVIDERS: ATTEND Nurse Practitioner Family
DX: R39.15 Urgency of urination (principal)

== ENCOUNTER → 2020-06-14 | Outpatient (POV) | payer MEDICARE ==
[~2020-06-14] MED LIST changes: +BACT800T5 PO
--- NOTE | 2020-06-15 14:36 | IRPN ---
[facility] IR Progress Note IR Progress Note DATE: Jun 14, 2020 Patient agreed to this telephone consultation. Duration of call 15 minutes. FOLLOW-UP: Patient is status post IVC filter placement in July 2019 for history of PE and DVTs, unable to be anticoagulated at that time due to hip fracture/hip surgery. Patient's hip problems have resolved. Patient has colon cancer for which she is under the care of [facility]. She suffered wi th vaginal and rectal bleeding for which her anticoagulation was stopped in the spring of this year. No leg swelling, chest pain or shortness of breath. ON EXAMINATION: No video on patient side. IMPRESSION: Patient evaluated for IVC filter removal. Patient is now almost a year after IVC filter placement. While it's ideal that we remove the IVC filter before too long, we should not do this until the patient can be safely anticoagulated without bleeding. Without systemic anticoagulation, the patient would remain at risk of PE without a filter. Therefore at this time the IVC filter should remain in place. If patient can be safely anticoagulated, we may be able to remove the filter in 6 months. Regardless, the filter can remain lifelong if the risk of removal outweighs the risks of having a filter. However filters can be associated with IVC thrombus, filter fracture and migration. Thank you for this referral CC Janiya Blas Allergies Coded Allergies: aspirin (Verified Allergy, Severe, ANAPHYLAXIS, 01/07/19) Contrast Media (Verified Allergy, Unknown, itching for days, 11/19/18) atenolol (Verified Adverse Reaction, Intermediate, NAUSEA AND DIZZINESS, 01/07/19) lisinopril (Verified Adverse Reaction, Intermediate, VERY DIZZY, 01/07/19) ELIZA ARMENDARIZ MD Jun 15, 2020 14:36
== END ==
LOC: M TMIRPOV 08:57
PROVIDERS: ATTEND Radiology Diagnostic Radiology
DX: Z95.828 Presence of other vascular implants and grafts (principal); C18.9 Malignant neoplasm of colon, unspecified; Z86.711 Personal history of pulmonary embolism; Z86.718 Personal history of other venous thrombosis and embolism

== ENCOUNTER → 2020-07-13 | Outpatient (REF) | payer MEDICARE | LOC: M SFHCCLAY 15:43 | PROVIDERS: ATTEND Nurse Practitioner Family | DX: J06.9 Acute upper respiratory infection, unspecified (principal); R35.0 Frequency of micturition | CPT/HCPCS: 87088; 87186; 87486; 87581; 87633; 87798; G0463 ==

== ENCOUNTER → 2020-07-28 | Outpatient (REF) | payer MEDICARE | LOC: M SFHCCLAY 13:23 | PROVIDERS: ATTEND Family Medicine | DX: R30.0 Dysuria (principal) ==

== ENCOUNTER → 2020-08-24 | Outpatient (REF) | payer MEDICARE ==
[2020-08-24 18:04] LABS: APPEARANCE, URINE HAZY (CLEAR); BACTERIA, URINE AUTO 1+ (NEGATIVE); BILIRUBIN, URINE AUTO NEGATIVE (NEGATIVE); BLOOD, URINE BLOOD 3+ (NEGATIVE); COLOR, URINE YELLOW (YELLOW); GLUCOSE, URINE (UA) AUTO 1+ mg/dL (NEGATIVE); KETONE, URINE AUTO NEGATIVE (NEGATIVE); LEUKOCYTE ESTERASE, URINE AUTO 3+ (NEGATIVE); MUCUS, URINE SMALL (NEGATIVE); NITRITE, URINE AUTO NEGATIVE (NEGATIVE); PROTEIN, URINE AUTO 1+ mg/dL (NEGATIVE); RBC, URINE AUTO 25 /HPF (0-3); SPECIFIC GRAVITY URINE AUTO 1.016 (1.002-1.035); SQUAMOUS EPITHELIAL CELL UR AU 2 /HPF (0-6); UROBILINOGEN, URINE AUTO 0.2 mg/dL (0.0-2.0); WBC, URINE AUTO 54 /HPF (0-3)
== END ==
LOC: M SMT 16:44
PROVIDERS: ATTEND Nurse Practitioner Women's Health
DX: N39.0 Urinary tract infection, site not specified (principal)
CPT/HCPCS: 51798; 81001; 87088; 87186; G0463

== ENCOUNTER → 2020-10-21 | Outpatient (REF) | payer MEDICARE ==
[~2020-10-21] MED LIST changes: +MACR100C43 PO; +ONDA8TAB8 PO
[2020-10-21 12:01] LABS: HEMOGLOBIN A1c 7.9 %
== END ==
LOC: M SFHCCLAY 09:49
PROVIDERS: ATTEND Nurse Practitioner Family
DX: E11.8 Type 2 diabetes mellitus with unspecified complications (principal)

== ENCOUNTER → 2021-01-23 | Outpatient (CLI) | payer MEDICARE ==
[~2021-01-23] MED LIST changes: +GABA-282 PO; -GABA-843 PO; -MAG400TA PO; +MAGN400T35 PO; +METH5TAB3 PO; +READI-CAT 2 As Ordered ONE
--- NOTE | 2021-01-23 18:55 | REP ---
INDICATION: RECTAL PAIN/CANCER. COMPARISON: 07/04/2020 the latest prior also without intravenous contrast TECHNIQUE: Oral bowel preparatory contrast only was administered prior to the exam. FINDINGS: The lung bases are stable. Once again, the liver is seen with partial hepatectomy status quo. The liver is essentially unchanged. The spleen, pancreas, adrenal glands, and kidneys are unchanged. Chronic left renal atrophic changes are again noted status quo. The abdominal aorta and para-regions appear stable. There is no significant change in appearance of the inferior vena cava filter. There is no change in appearance of the colostomy site. No mass or adenopathy has developed. There is diffuse thickening of the soft tissues of the rectal region on the left which is not opacified with oral bowel preparatory contrast. This is somewhat difficult to evaluate without the administration of intravenous contrast. There is no free fluid or free air. There is no significant change in appearance of the osseous structures. IMPRESSION: There is some evidence of thickening of the left perirectal soft tissues as described above. CT-PET is suggested for follow-up. <Electronically signed by Samir Sandoval > 01/23/21 0014
== END ==
LOC: M RAD 16:09
PROVIDERS: ATTEND Internal Medicine Medical Oncology
DX: C20 Malignant neoplasm of rectum (principal)

== ENCOUNTER 2021-01-25 10:05 | Inpatient (IN) | payer MEDICARE ==
[2021-01-25] VITALS (8 sets, daily range): BP systolic 123–173; BP diastolic 50–79
[~2021-01-25] VITALS: Ht 157.5 cm; Wt 90.6 kg
[~2021-01-25 10:05] MED LIST changes: -READI-CAT 2 As Ordered ONE
--- NOTE | 2021-01-25 10:58 | REP ---
INDICATION: DYSPNEA/COUGH. COMPARISON: None. TECHNIQUE: SINGLE PORTABLE AP VIEW OF THE CHEST WAS PERFORMED. FINDINGS: THERE IS NO ACUTE INFILTRATE OR PULMONARY EDEMA. LUNGS ARE CLEAR. HEART IS NOT SIGNIFICANTLY ENLARGED. There is mild calcification and tortuosity of the thoracic aorta. THE VISUALIZED OSSEOUS STRUCTURES ARE INTACT.Cdzyvy-J-Wvla catheter is again noted with the tip in the superior vena cava. IMPRESSION: NO ACUTE PULMONARY DISEASE. <Electronically signed by Kt Ramirez > 01/25/21 1839
[2021-01-25 11:36] LABS: VENOUS BASE EXCESS -3.5 (-2.0-2.0); VENOUS O2 SATURATION 76.5 % (60.0-80.0); VENOUS PARTIAL PRESSURE CO2 41.3 mmHg (38.0-50.0); VENOUS PARTIAL PRESSURE O2 46.9 mmHg (30.0-50.0); VENOUS PH 7.344 UNITS (7.330-7.430); VENOUS STANDARD HCO3 21.3 MEQ/L; VENOUS TOTAL CO2 23.3 MEQ/L (24.0-28.0)
[2021-01-25 11:43] LABS: HEMATOCRIT 22.4 % (36.0-47.0); HEMOGLOBIN 7.3 g/dl (12.0-15.5); MEAN CORPUSCULAR HEMOGLOBIN 31.1 pg (27.0-33.0); MEAN CORPUSCULAR HGB CONC 32.6 g/dl (32.0-36.5); MEAN CORPUSCULAR VOLUME 95.3 fl (80.0-96.0); RED BLOOD COUNT 2.35 10^6/uL (4.00-5.40); WHITE BLOOD COUNT 11.1 10^3/uL (4.0-10.0)
[2021-01-25 12:04] LABS: INR 1.28; PROTHROMBIN TIME 16.2 SECONDS (12.5-14.3)
[2021-01-25 12:14] LABS: ALT/SGPT 15 U/L (12-78); BILIRUBIN,DIRECT 0.1 MG/DL (0.0-0.2); BILIRUBIN,TOTAL 0.4 MG/DL (0.2-1.0); CK-MB VALUE MASS 1.6 NG/ML (<3.6); CPK CREATINE PHOSPHOKINASE 45 U/L (26-192); MB/CK RELATIVE INDEX 3.56 (< OR =4); TROPONIN I < 0.02 NG/ML (< 0.10)
[2021-01-25 12:14] LABS: ATYPICAL LYMPH 1 % (0-5); EOSINOPHILS 2 % (0-3); LYMPHOCYTES 7 % (16-44); MONOCYTES 5 % (0-5); MYELOCYTES 1 % (0-0); NEUTROPHILS 72 % (28-66); PLASMA CELL 0 % (0-0); PLATELET CLUMPS MODERATE AMT; PLATELET ESTIMATE INVALID (NORMAL)
[2021-01-25 12:15] LABS: ANISOCYTOSIS 2+
[2021-01-25 12:20] LABS: RSV AMPLIFICATION NEGATIVE (NEGATIVE)
[2021-01-25] MEDS ORDERED: cefTRIAXone SOD 2 GM in D5W MINI-BAG PLUS 50 ML IV ONE (13:05)
[2021-01-25] MEDS ORDERED: LEVO125T4 PO (13:30)
[2021-01-25] MEDS ORDERED: OXYB15TA14 PO (13:35)
[2021-01-25] MEDS ORDERED: NITR100C2 PO (13:35)
[2021-01-25] MEDS ORDERED: LIPI10TA PO (13:35)
[2021-01-25 13:37] LABS: NT-PRO BNP 1532 PG/ML (<125)
[2021-01-25] MEDS ORDERED: ACETAMINOPHEN TAB 650MG DOSE (2X325MG) PO PRN (14:05)
[2021-01-25] MEDS ORDERED: ONDANSETRON 4 MG ORAL DISINTEGRATING TAB PO PRN (14:10)
[2021-01-25] MEDS ORDERED: ONDANSETRON 4 MG TAB PO PRN (14:10)
[2021-01-25] MEDS ORDERED: ACETAMINOPHEN 500 MG TAB PO PRN (14:10)
[2021-01-25] MEDS ORDERED: diphenhydrAMINE 25MG CAP PO PRN (14:10)
[2021-01-25] MEDS ORDERED: LOPERAMIDE 2 MG CAPLET PO PRN (14:10)
[2021-01-25] MEDS ORDERED: GLUCOSE 4GM CHEW TABLET PO PRN (14:20)
[2021-01-25] MEDS ORDERED: DEXTROSE 50% 50 ML SYRINGE IV PRN (14:20)
[2021-01-25] MEDS ORDERED: GLUCAGON INJ 1MG VIAL SC PRN (14:20)
--- NOTE | 2021-01-25 14:26 | HPEPDOC ---
General Date of Admission Jan 25, 2021 at 10:06 Date of Service: Jan 25, 2021 Chief Complaint The patient is a 70-year-old female admitted with a reason for visit of Colon Cancer Metastasized To Multiple Sites. Source: Patient Exam Limitations: No limitations History of Present Illness Patient 70 years old female with past history of Metastatic rectal carcinoma with liver, lung involvement and pelvic recurrence including rectovaginal fis eron, pulmonary embolism 2016, DVT in 2019 after hip fracture, type 2 diabetes, hypothyroidism presented to the hospital with weakness and increased shortness of breath on exertion. Patient stated that for past few weeks she has been having increased weakness with shortness of breath on exertion. Patient stated that she has been having intermittently bloody discharge from the rectum, patient has ileostomy. Of note, patient has Metastatic recurrence involving rectal anastomotic site, left pelvic sidewall, pulmonary nodules November 2018, treated with FOLFIRI/bevacizumab two cycles 12/23/2018 - 01/13/2019. Started palliative FOLFOX chemotherapy 11/02/2020. In ER patient was found white blood c ount of 11.1, hemoglobin 7.3, BNP 1532. Chest x-ray negative for acute pulmonary infiltrate Home Medications Scheduled Atorvastatin Calcium (Lipitor) 10 Mg Tablet, 10 MG PO DAILY, (Reported) Gabapentin (Gabapentin) 300 Mg Capsule, 600 MG PO QHS, (Reported) Hydrochlorothiazide (Hydrochlorothiazide) 12.5 Mg Capsule, 12.5 MG PO DAILY, (Reported) Insulin Degludec (Tresiba Flextouch U-100) 100 Unit/1 Ml Insuln.pen, 36 UNIT SC QHS, (Reported) Levothyroxine Sodium (Levothyroxine Sodium) 125 Mcg Tablet, 125 MCG PO DAILY, (Reported) Methadone HCl (Methadone HCl) 5 Mg Tablet, 5 MG PO QHS Nitrofurantoin Monohyd/M-Cryst (Nitrofurantoin [place]-Mcr 100 mg) 100 Mg Capsule, 100 MG PO QHS, (Reported) Oxybutynin Chloride (Oxybutynin Chloride ER) 15 Mg Tab.er.24, 15 MG PO QHS, (Reported) Prochlorperazine Maleate (Prochlorperazine Maleate) 10 Mg Tablet, 1 TAB PO Q6H Scheduled PRN Acetaminophen (Acetaminophen) 500 Mg Tablet, 1,000 MG PO Q6H PRN for PAIN, (Reported) Diphenhydramine HCl (Benadryl) 25 Mg Capsule, 25 MG PO DAILY PRN for ITCHING, (Reported) Loperamide HCl (Loperamide) 2 Mg Capsule, 2 MG PO Q6H PRN for AFTER EACH LOOSE STOOL, (Reported) Nystatin (Nystatin Powder) 15 Gm Powder, 1 DOSE TOP BID PRN for ITCHING, (Reported) APPLY TO ABDOMINAL FOLDS, UNDER BREASTS, AND GROIN AREA Ondansetron (Ondansetron Odt) 8 Mg Tab.rapdis, 8 MG PO Q12H PRN for NAUSEA OR VOMITING TAKE ONE TAB BY MOUTH EVERY 12 HOURS NEEDED FOR NAUSEA OR VOMITING Allergies Coded Allergies: aspirin (Verified Allergy, Severe, ANAPHYLAXIS, 01/07/19) Contrast Media (Verified Allergy, Unknown, itching for days, 11/19/18) atenolol (Verified Adverse Reaction, Intermediate, NAUSEA AND DIZZINESS, 01/07/19) lisinopril (Verified Adverse Reaction, Intermediate, VERY DIZZY, 01/07/19) Past Medical History Medical History COLON CANCER-2003 RESECTED, AGAIN IN 2013 RESECTED, IRRADIATED, CHEMO X2 C LIVER RESECTED ALSO, PE T2DM HYPOTHYROIDISM MRSA VULVA ABCESS 2011 HYPERLIPIDEMIA PULMONARY EMBOLISM: 2016 AFTER LIVER RESECTION, XARELTO X 6 MONTHS LEFT HYDRONEPHROSIS WITH PROGRESSIVE RENAL INSUFFICIENCY RECURRENT UTI'S Surgical History COLON, CANCER SURGERY-RESECTION 2003 TONSILLECTOMY COLON SURGERY 2013 LIVER RESECTION- [facility] 2015 PORT IMPLANTED 2013 COLONOSCOPY: DR. BAILEY 04/30/2017 PORT IMPLANT REMOVED 06/19/2017 L URETERAL STENT REMOVAL 12/24/2017 URETERAL REIMPLANTATION- DR. GOMEZ 03/05/2018 CYSTO WITH LEFT STENT REMOVAL 04/15/2018 COLOSTOMY 02/2019 PARTIAL LEFT HIP REPLACEMENT 07/2019 LEFT IVC PORT PLACEMENT 07/2019 Family History FATHER: 68 YRS, HTN DM ANGINA CAD (CAUSE OF ), DIAGNOSED WITH HYPERTENSION, UNSPECIFIED HEART DISEASE, DIABETES MOTHER: 70 YRS, HTN STROKE ( CAUSE OF ), HYPERTENSION, UNSPECIFIED CEREBRAL ARTERY OCCLUSION WITH CEREBRAL INFARCTION SON(S): SON KIDNEY DISEASE SON . BORN WITH VATURES. 2 SONS: WELL PATERNAL GRAND MOTHER: , BILATERAL BREAST CANCER PATERNAL AUNT: 3 WITH BREAST CANCER MATERNAL AUNT: COLON CANCER 1 SISTER(S) - HEALTHY. 3 SON(S) . Social History * Smoker: former Smoker Alcohol: Denies Drugs: denies A-FIB/CHADSVASC A-FIB History Current/History of A-Fib/PAF?: No Current PO Anticoag Therapy: No Review of Systems Constitutional: Reports: Weakness, Fatigue; Denies: Chills, Fever Eyes: Denies: Pain ENT: Denies: Head Aches Skin: Denies: Rash, Lesions Pulmonary: Reports: Dyspnea (on exertion) Cardiovascular: Denies: Chest Pain Gastrointestinal: Denies: Nausea, Vomiting Genitourinary: Denies: Dysuria Hematologic: Denies: Bruising Endocrine: Denies: Polydipsia, Polyphagia Musculoskeletal: Denies: Neck Pain Neurological: Denies: Weakness Psych: Reports: Mood Normal Physical Examination General Exam: Positive: Alert, Cooperative Eye Exam: Positive: PERRLA ENT Exam: Positive: Atraumatic Neck Exam: Positive: Supple; Negative: JVD Chest Exam: Positive: Clear to auscultation Heart Exam: Positive: Rate Normal Telemetry: Positive: No significant arrhythmia Abdomen Exam: Positive: Normal bowel sounds Extremity Exam: Negative: Clubbing Skin Exam: Positive: Nl turgor and temperature Neuro Exam: Positive: Strength at 5/5 X4 ext Psych Exam: Positive: Mental status NL Vital Signs Vital Signs Date Time Temp Pulse Resp B/P (MAP) Pulse Ox O2 Delivery O2 Flow Rate FiO2 01/25/21 10:33 97.9 76 20 167/72 (103) 98 Room Air Laboratory Data Labs 24H Laboratory Tests 2 01/25/21 10:50: Prothrombin Time 16.2H, Prothromb Time International Ratio 1.28, Total Bilirubin 0.4, Direct Bilirubin 0.1, Aspartate Amino Transf (AST/SGOT) 10, Alanine Am inotransferase (ALT/SGPT) 15, Alkaline Phosphatase 121H, Total Creatine Kinase 45, Creatine Kinase MB 1.6, Creatine Kinase MB Relative Index 3.56, Troponin I < 0.02, SI-Hcl-P-Type Natriuretic Peptide 1532H, Total Protein 6.0L, Albumin 3.0L, Albumin/Globulin Ratio 1.0L, Thyroid Stimulating Hormone (TSH) 10.000H 01/25/21 10:51: Immature Granulocyte % (Auto) , Neutrophils (%) (Auto) , Nucleated Red Blood Cells % (auto) 0.0, Neutrophils 72H, Band Neutrophils 12H, Lymphocytes (Manual) 7L, Monocytes (Manual) 5, Eosinophils (Manual) 2, Myelocytes 1H, Atypical Lymphocytes 1, Plasma Cells 0, Anisocytosis 2+, Platelet Estimate INVALID, Clumped Platelets MODERATE AMT, Blood Gas Bicarbonate Standard 21.3, Venous Blood pH 7.344, Venous Blood Partial Pressure CO2 41.3, Venous Blood Partial Pressure O2 46.9, Venous Blood Total Carbon Dioxide 23.3L, Venous Blood HCO3 22.0L, Venous Blood Oxygen Saturation 76.5, Venous Blood Base Excess -3.5L, Coronavirus (COVID-19)(PCR) NEGATIVE, Influenza Type A (RT-PCR) NEGATIVE, Influenza Type B (RT-PCR) NEGATIVE, Respiratory Syncytial Virus (PCR) NEGATIVE 01/25/21 11:37: POC Glucose (Misc Panel) 380H, POC Sodium (Misc Panel) 132L, POC Potassium (Misc Panel) 4.1, POC Chloride (Misc Panel) 99, POC Total CO2 (Misc Panel) 23.0, POC Blood Urea Nitrogen (Misc Panel 28H, POC Ionized Calcium (Misc Panel) 4.9, POC Creatinine (Misc Panel) 1.4H, POC Hematocrit (Misc Panel) 23.0L CBC/BMP Laboratory Tests 01/25/21 10:51 Microbiology Microbiology 01/25/21 Blood Culture, Received Pending 01/25/21 Blood Culture, Received Pending Assessment/Plan Patient 70 years old female with past history of Metastatic rectal carcinoma with liver, lung involvement and pelvic recurrence including rectovaginal fistula, pulmonary embolism 2016, DVT in 2019 after hip fracture, type 2 diabetes, hypothyroidism presented to the hospital with weakness and increased shortness of breath on exertion. Patient stated that for past few weeks she has been having increased weakness with shortness of breath on exertion. Patient stated that she has been having intermittently bloody discharge from the rectum, patient has ileostomy. Of note, patient has Metastatic recurrence involving rectal anastomotic site, left pelvic sidewall, pulmonary nodules November 2018, treated with FOLFIRI/bevacizumab two cycles 12/23/2018 - 01/13/2019. Started palliative FOLFOX chemotherapy 11/02/2020. In ER patient was found white blood count of 11.1, hemoglobin 7.3, BNP 1532. Chest x-ray negative for acute pulmonary infiltrate Problems (1) Symptomatic anemia Status: Acute Problem Text: Multifactorial. Secondary to chronic GI blood loss, patient has intermittent bloody discharge from rectum stamp, chemotherapy, advanced malignancy 2 units of blood ordered by ER H&H every 6 hours (2) Colon cancer metastasized to multiple sites Status: Acute Problem Text: Follow-up with oncologist for palliative chemotherapy (3) Dyspnea Status: Acute Problem Text: Patient has 96% oxygen saturation on room air, she is not tachycardic However patient has cancer and 2 episodes of DVT in the past We'll check d-dimer, if positive will proceed with VQ scan, patient has allergy to contrast cannot do CTA Patient was not on the anticoagulation therapy (4) DVT (deep venous thrombosis) Problem Text: We will hold full dose of anticoagulation therapy for now. Patient has 2 episode of PE and DVT in the past (5) Lower GI bleed Status: Chronic Problem Text: See above (6) Hx pulmonary embolism Status: Acute Problem Text: See above (7) Diabetes mellitus, type 2 Status: Chronic Problem Text: Insulin sliding scale Detemir twice a day (8) CKD (chronic kidney disease), stage III Status: Chronic Problem Text: Creatinine on the baseline Continue to monitor (9) Hypothyroidism Status: Chronic Problem Text: TSH 10 I increased her dose of levothyroxine to 175 We'll check thyroid profile Plan / VTE VTE Prophylaxis Ordered?: No VTE Exclusion Pharmacological: Bleeding Risk JAMARCUS CARDENAS DO Jan 25, 2021 14:26
[2021-01-25 15:18] LABS: D-DIMER QUANT > 4000 ng/ml (<500)
[2021-01-25 15:37] LABS: FREE THYROXINE INDEX 3.5 % (1.3-4.8); T UPTAKE 35 % (30-39)
[2021-01-25] MEDS: FUROSEMIDE 20MG/2ML VIAL (J1940) IV SCH (17:45)
[2021-01-25] MEDS: HumaLOG INSULIN (NovoLOG) PER UNIT SC SCH ×2 (17:46→21:00)
[2021-01-25 18:46] LABS: HEMATOCRIT 27.1 % (36.0-47.0); HEMOGLOBIN 8.8 g/dl (12.0-15.5)
[2021-01-25] MEDS: METHADONE 5 MG TAB (S0109) PO SCH (21:00)
[2021-01-25] MEDS: GABAPENTIN 300 MG CAP PO SCH (21:44)
[2021-01-25] MEDS: oxyBUTYnin *DITROPAN XL* 5 MG TABCR PO SCH (21:44)
[2021-01-25] MEDS: NITROFURANTOIN (MACROBID) 100 MG CAP PO SCH (21:44)
[2021-01-25] MEDS: LEVEMIR (INSULIN DETEMIR) 1 UNITS/0.01ML SC SCH (21:44)
[2021-01-26 00:12] VITALS: BP 117/48
[2021-01-26 01:00] VITALS: BP 142/72
[2021-01-26 02:00] VITALS: BP 130/53
[2021-01-26 02:11] LABS: HEMATOCRIT 27.6 % (36.0-47.0); HEMOGLOBIN 9.2 g/dl (12.0-15.5)
[2021-01-26] MEDS: FUROSEMIDE 20MG/2ML VIAL (J1940) IV SCH ×2 (04:51→17:26)
[2021-01-26] MEDS: SODIUM CHLORIDE 0.9% INJ 10 ML SYR IV PRN ×3 (04:52→23:51)
[2021-01-26 05:11] LABS: HEMATOCRIT 28.6 % (36.0-47.0); HEMOGLOBIN 9.3 g/dl (12.0-15.5); MEAN CORPUSCULAR HEMOGLOBIN 29.4 pg (27.0-33.0); MEAN CORPUSCULAR HGB CONC 32.5 g/dl (32.0-36.5); MEAN CORPUSCULAR VOLUME 90.5 fl (80.0-96.0); PLATELET COUNT, AUTOMATED 136 10^3/uL (150-450); RED BLOOD COUNT 3.16 10^6/uL (4.00-5.40)
[2021-01-26 05:42] LABS: ALBUMIN 2.8 GM/DL (3.2-5.2); BILIRUBIN,TOTAL 0.6 MG/DL (0.2-1.0); CALCIUM LEVEL 8.7 MG/DL (8.8-10.2); CREATININE FOR GFR 1.41 MG/DL (0.55-1.30); GLOMERULAR FILTRATION RATE 39.1 (>39); MAGNESIUM LEVEL 1.6 MG/DL (1.8-2.4); POTASSIUM SERUM 3.9 MEQ/L (3.5-5.1); TOTAL PROTEIN 5.9 GM/DL (6.4-8.2)
[2021-01-26 06:00] VITALS: BP 129/55
[2021-01-26] MEDS: LEVOTHYROXINE 100MCG TABLET (0.1MG) PO SCH (06:29)
[2021-01-26] MEDS: LEVOTHYROXINE 75MCG TABLET (0.075MG) PO SCH (06:29)
[2021-01-26] MEDS: NYSTATIN 100,000 UNITS/GM TOPICAL PWD 15 GM TOP PRN ×2 (06:30→20:53)
[2021-01-26] MEDS: ATORVASTATIN 10 MG TAB PO SCH (08:16)
[2021-01-26] MEDS: hydroCHLOROthiazide 12.5 MG CAPSULE PO SCH (08:16)
[2021-01-26] MEDS: HumaLOG INSULIN (NovoLOG) PER UNIT SC SCH ×4 (08:17→20:51)
[2021-01-26] MEDS: LEVEMIR (INSULIN DETEMIR) 1 UNITS/0.01ML SC SCH ×2 (08:18→20:51)
[2021-01-26] MEDS ORDERED: LEVOTHYROXINE 125MCG TABLET (0.125MG) PO SCH (09:00)
--- NOTE | 2021-01-26 10:09 | ECGEPIP ---
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
--- NOTE | 2021-01-26 10:14 | REP ---
INDICATION: PE. COMPARISON: Chest radiograph 01/25/2021. TECHNIQUE/RADIOTRACER AND DOSE: Following the intravenous administration of 5.5 mCi technetium 99 M tagged MAA and the inhalation of 1.0 mCi technetium 99 M DTPA aerosol, multiple images of the lung keith are obtained. FINDINGS: There is homogeneous perfusion throughout both lungs. A small matching defect is seen in the posterior costophrenic sulcus bilaterally. There are no areas of V/Q mismatch. IMPRESSION: Low probability of pulmonary embolism. <Electronically signed by Kt Ramirez > 01/26/21 1010
--- NOTE | 2021-01-26 13:09 | IPNPDOC ---
Text Note Date of Service The patient was seen on 01/26/21. NOTE Subjective: Patient stated that she feels better today, more energy. No any a cute events overnight. 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 Patient stated that for past few weeks she has been having increased weakness with shortness of breath on exertion. Patient stated that she has been having intermittently bloody discharge from the rectum, patient has ileostomy. Of note, patient has Metastatic recurrence involving rectal anastomotic site, left pelvic sidewall, pulmonary nodules November 2018, treated with FOLFIRI/bevacizumab two cycles 12/23/2018 - 01/13/2019. Started palliative FOLFOX chemotherapy 11/02/2020. In ER patient was found white blood count of 11.1, hemoglobin 7.3, BNP 1532. Chest x-ray negative for acute pulmonary infiltrate Problems (1) Symptomatic anemia Multifactorial. Secondary to chronic GI blood loss, patient has intermittent bloody discharge from rectum stamp, chemotherapy, advanced malignancy Status post 2 units of blood transfusion Hemoglobin stable (2) Colon cancer metastasized to multiple sites Follow-up with oncologist for palliative chemotherapy (3) Dyspnea Resolved after blood transfusion Patient has 96% oxygen saturation on room air, she is not tachycardic on admission However patient has cancer and 2 episodes of DVT in the past, allergic to contrast VQ scan negative (4) DVT (deep venous thrombosis) Doppler ultrasound showed There is no ultrasonographic evidence of deep venous thrombosis involving any of the visualized deep venous structures of the right thigh The patient was diagnosed with a nonocclusive DVT of the left thigh on 07/18/2019. Today's exam shows increased thrombus formation throughout the left thigh deep venous structures. Patient has 2 episode of PE and DVT in the past Patient has IVC filter placed around 2 year ago. (5) Lower GI bleed See above (6) Hx pulmonary embolism See above (7) Diabetes mellitus, type 2 Insulin sliding scale Detemir twice a day (8) CKD (chronic kidney disease), stage III Creatinine on the baseline Continue to monitor (9) Hypothyroidism TSH 10 I increased her dose of levothyroxine to 175 VS,Fishbone, I+O VS, Fishbone, I+O Laboratory Tests 01/25/21 18:27 01/26/21 02:05 01/26/21 05:01 Vital Signs Date Time Temp Pulse Resp B/P (MAP) Pulse Ox O2 Delivery O2 Flow Rate FiO2 01/26/21 06:00 98.2 69 14 129/55 (79) 96 Room Air I&O- Last 24 Hours up to 6 AM 01/26/21 06:00 Intake Total 1285 ml Output Total 1600 ml Balance -315 ml JAMARCUS CARDENAS DO Jan 26, 2021 13:09
--- NOTE | 2021-01-26 14:24 | REP ---
INDICATION: dvt. COMPARISON: Only left-sided study obtained [id number] TECHNIQUE: Multiple ultrasonographic images of the deep venous structures of the bilateral thigh were obtained from the common femoral vein to the popliteal vein along with Doppler interrogation and color flow Doppler images. FINDINGS: There is no abnormal echogenic material seen within any of the visualized deep venous structures on the right that would suggest acute thrombosis. Coaptation is unremarkable throughout on the right. Doppler interrogation shows an expected response to respiratory variability and augmentation on the right. The color flow images show what appears to be a normal vascular pattern throughout the right. On the left abnormal echogenic material is again seen in the common femoral vein, however, this has increased from the prior exam and abnormal echogenic material is now seen from the common femoral vein to the popliteal vein inclusive. No color Doppler signal is seen in those affected veins and there is no response to augmentation. IMPRESSION: There is no ultrasonographic evidence of deep venous thrombosis involving any of the visualized deep venous structures of the right thigh, as described above. The patient was diagnosed with a nonocclusive DVT of the left thigh on 07/18/2019. Today's exam shows increased thrombus formation throughout the left thigh deep venous structures, however, it is not possible to ascertain whether that represents a continuum of the disease process from that prior exam or an acute process superimposed upon chronic changes. <Electronically signed by Samir Sandoval > 01/26/21 [id number]
[2021-01-26 15:00] VITALS: BP 133/57
[2021-01-26 18:48] LABS: HEMATOCRIT 30.9 % (36.0-47.0); HEMOGLOBIN 10.1 g/dl (12.0-15.5)
[2021-01-26] MEDS: GABAPENTIN 300 MG CAP PO SCH (20:51)
[2021-01-26] MEDS: NITROFURANTOIN (MACROBID) 100 MG CAP PO SCH (20:51)
[2021-01-26] MEDS: oxyBUTYnin *DITROPAN XL* 5 MG TABCR PO SCH (20:51)
[2021-01-26] MEDS: METHADONE 5 MG TAB (S0109) PO SCH (20:51)
[2021-01-26 22:00] VITALS: BP 105/52
[2021-01-27 00:24] LABS: HEMOGLOBIN 9.2 g/dl (12.0-15.5)
[2021-01-27] MEDS: SODIUM CHLORIDE 0.9% INJ 10 ML SYR IV PRN (04:55)
[2021-01-27] MEDS: FUROSEMIDE 20MG/2ML VIAL (J1940) IV SCH ×2 (04:55→16:59)
[2021-01-27 05:20] LABS: HEMATOCRIT 29.9 % (36.0-47.0); HEMOGLOBIN 9.6 g/dl (12.0-15.5); MEAN CORPUSCULAR HEMOGLOBIN 29.3 pg (27.0-33.0); MEAN CORPUSCULAR HGB CONC 32.1 g/dl (32.0-36.5); MEAN CORPUSCULAR VOLUME 91.2 fl (80.0-96.0); PLATELET COUNT, AUTOMATED 156 10^3/uL (150-450); RED BLOOD COUNT 3.28 10^6/uL (4.00-5.40); WHITE BLOOD COUNT 12.5 10^3/uL (4.0-10.0)
[2021-01-27 05:43] LABS: EOSINOPHILS 2 % (0-3); LYMPHOCYTES 10 % (16-44); METAMYELOCYTES 1 % (0-0); MONOCYTES 4 % (0-5); MYELOCYTES 2 % (0-0); NEUTROPHILS 79 % (28-66); PLATELET ESTIMATE NORMAL (NORMAL)
[2021-01-27 05:44] LABS: ALBUMIN 2.8 GM/DL (3.2-5.2); ANISOCYTOSIS 2+; BILIRUBIN,TOTAL 0.4 MG/DL (0.2-1.0); CALCIUM LEVEL 7.9 MG/DL (8.8-10.2); CREATININE FOR GFR 1.55 MG/DL (0.55-1.30); GLOMERULAR FILTRATION RATE 35.1 (>39); MAGNESIUM LEVEL 1.4 MG/DL (1.8-2.4); POTASSIUM SERUM 3.9 MEQ/L (3.5-5.1)
[2021-01-27 06:00] VITALS: BP 134/68
[2021-01-27] MEDS: LEVOTHYROXINE 100MCG TABLET (0.1MG) PO SCH (06:06)
[2021-01-27] MEDS: LEVOTHYROXINE 75MCG TABLET (0.075MG) PO SCH (06:06)
[2021-01-27] MEDS: HumaLOG INSULIN (NovoLOG) PER UNIT SC SCH ×4 (07:57→22:04)
[2021-01-27] MEDS: LEVEMIR (INSULIN DETEMIR) 1 UNITS/0.01ML SC SCH ×2 (08:01→22:04)
[2021-01-27] MEDS: ATORVASTATIN 10 MG TAB PO SCH (08:02)
[2021-01-27] MEDS: hydroCHLOROthiazide 12.5 MG CAPSULE PO SCH (08:02)
[2021-01-27] MEDS ORDERED: SENNA 8.6 MG TAB (SENOKOT) PO PRN (09:20)
[2021-01-27] MEDS ORDERED: DOCUSATE SODIUM 100MG CAPSULE PO PRN (09:20)
[2021-01-27] MEDS ORDERED: SENN18TA PO (10:08)
[2021-01-27] MEDS ORDERED: ONDA-83 PO (10:08)
[2021-01-27] MEDS ORDERED: DOK1CAP7 PO (10:08)
[2021-01-27] MEDS ORDERED: LEVO175T2 PO (10:08)
[2021-01-27] MEDS ORDERED: ACET1TAB55 PO (10:08)
[2021-01-27] MEDS ORDERED: MIRALAX *UNIT DOSE* 17GM PACKET PO PRN (11:05)
[2021-01-27] MEDS ORDERED: BISACODYL 5 MG TAB PO ONE (11:45)
[2021-01-27 14:00] VITALS: BP 130/59
[2021-01-27] MEDS: MAGNESIUM GLUCONATE 500 MG TAB PO SCH (14:31)
--- NOTE | 2021-01-27 15:14 | IPNPDOC ---
Text Note Date of Service The patient was seen on 01/27/21. NOTE Subjective: Patient complains of constipation she reported that she did not have bowel movement since January 23. 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 Patient stated that for past few weeks she has been having increased weakness with shortness of breath on exertion. Patient stated that she has been having intermittently bloody discharge from the rectum, patient has ileostomy. Of note, patient has Metastatic recurrence involving rectal anastomotic site, left pelvic sidewall, pulmonary nodules November 2018, treated with FOLFIRI/bevacizumab two cycles 12/23/2018 - 01/13/2019. Started palliative FOLFOX chemotherapy 11/02/2020. In ER patient was found white blood count of 11.1, hemoglobin 7.3, BNP 1532. Chest x-ray negative for acute pulmonary infiltrate Problems (1) Symptomatic anemia Multifactorial. Secondary to chronic GI blood loss, patient has intermittent blo iraj discharge from rectum stamp, chemotherapy, advanced malignancy Status post 2 units of blood transfusion Hemoglobin stable (2) Colon cancer metastasized to multiple sites Follow-up with oncologist for palliative chemotherapy (3) Dyspnea Resolved after blood transfusion Patient has 96% oxygen saturation on room air, she is not tachycardic on admission However patient has cancer and 2 episodes of DVT in the past, allergic to contrast VQ scan negative (4) DVT (deep venous thrombosis) Doppler ultrasound showed There is no ultrasonographic evidence of deep venous thrombosis involving any of the visualized deep venous structures of the right thigh The patient was diagnosed with a nonocclusive DVT of the left thigh on 07/18/2019. Doppler exam shows increased thrombus formation throughout the left thigh deep venous structures. Patient has 2 episode of PE and DVT in the past Patient has IVC filter placed around 2 year ago. Follow-up with Dr Kirby for possible thrombectomy in the outpatient settings next week (5) Lower GI bleed See above (6) Hx pulmonary embolism See above (7) Diabetes mellitus, type 2 Insulin sliding scale Detemir twice a day (8) CKD (chronic kidney disease), stage III Creatinine on the baseline Continue to monitor (9) Hypothyroidism TSH 10 I increased her dose of levothyroxine to 175 micrograms Constipation Laxatives We'll proceed with abdomen x-ray VS,Areli, I+O VS, Areli, I+O Laboratory Tests 01/26/21 18:37 01/26/21 23:54 01/27/21 04:58 Vital Signs Date Time Temp Pulse Resp B/P (MAP) Pulse Ox O2 Delivery O2 Flow Rate FiO2 01/27/21 14:00 99.1 71 14 130/59 (82) 97 Room Air I&O- Last 24 Hours up to 6 AM 01/27/21 06:00 Intake Total 1070 ml Output Total 850 ml Balance 220 ml JAMARCUS CARDENAS DO Jan 27, 2021 15:13
--- NOTE | 2021-01-27 15:47 | REP ---
INDICATION: constipation. COMPARISON: None. FINDINGS: KUB shows the intestinal gas pattern to be nonspecific. There is some large bowel contrast opacification from a previous radiographic procedure. There is no intestinal obstruction. A Yuly filter is seen in the region of the inferior vena cava the tip of which is at the level of the inferior endplate of L2. The organ silhouettes insofar as delineated are unremarkable. There is no evidence of free intraperitoneal air. IMPRESSION: Nonspecific. <Electronically signed by Samir Sandoval > 01/27/21 [id number]
[2021-01-27 22:00] VITALS: BP 137/67
[2021-01-27] MEDS: oxyBUTYnin *DITROPAN XL* 5 MG TABCR PO SCH (22:02)
[2021-01-27] MEDS: GABAPENTIN 300 MG CAP PO SCH (22:03)
[2021-01-27] MEDS: NITROFURANTOIN (MACROBID) 100 MG CAP PO SCH (22:03)
[2021-01-27] MEDS: METHADONE 5 MG TAB (S0109) PO SCH (22:04)
[2021-01-28] MEDS: FUROSEMIDE 20MG/2ML VIAL (J1940) IV SCH (04:58)
[2021-01-28] MEDS: SODIUM CHLORIDE 0.9% INJ 10 ML SYR IV PRN ×3 (04:59→14:53)
[2021-01-28 05:25] LABS: HEMATOCRIT 29.6 % (36.0-47.0); HEMOGLOBIN 9.5 g/dl (12.0-15.5); MEAN CORPUSCULAR HEMOGLOBIN 29.4 pg (27.0-33.0); MEAN CORPUSCULAR HGB CONC 32.1 g/dl (32.0-36.5); MEAN CORPUSCULAR VOLUME 91.6 fl (80.0-96.0); PLATELET COUNT, AUTOMATED 159 10^3/uL (150-450); RED BLOOD COUNT 3.23 10^6/uL (4.00-5.40); WHITE BLOOD COUNT 12.2 10^3/uL (4.0-10.0)
[2021-01-28 05:43] LABS: ALBUMIN 2.8 GM/DL (3.2-5.2); BILIRUBIN,TOTAL 0.4 MG/DL (0.2-1.0); CALCIUM LEVEL 7.8 MG/DL (8.8-10.2); CREATININE FOR GFR 1.45 MG/DL (0.55-1.30); GLOMERULAR FILTRATION RATE 37.9 (>39); MAGNESIUM LEVEL 1.4 MG/DL (1.8-2.4); POTASSIUM SERUM 3.5 MEQ/L (3.5-5.1); TOTAL PROTEIN 5.9 GM/DL (6.4-8.2)
[2021-01-28 05:50] LABS: BASOPHILS 1 % (0-1); EOSINOPHILS 2 % (0-3); LYMPHOCYTES 9 % (16-44); METAMYELOCYTES 1 % (0-0); MONOCYTES 4 % (0-5); NEUTROPHILS 81 % (28-66); PLATELET ESTIMATE NORMAL (NORMAL)
[2021-01-28 05:51] LABS: ANISOCYTOSIS 2+; PLATELET CLUMPS SMALL AMT
[2021-01-28 06:00] VITALS: BP 130/64
[2021-01-28] MEDS: LEVOTHYROXINE 100MCG TABLET (0.1MG) PO SCH (06:26)
[2021-01-28] MEDS: LEVOTHYROXINE 75MCG TABLET (0.075MG) PO SCH (06:27)
[2021-01-28] MEDS ORDERED: SYNT137T7 PO (08:05)
[2021-01-28] MEDS ORDERED: MIRA3350 PO (08:06)
[2021-01-28] MEDS: MAGNESIUM GLUCONATE 500 MG TAB PO SCH (08:17)
[2021-01-28] MEDS: HumaLOG INSULIN (NovoLOG) PER UNIT SC SCH ×2 (08:19→11:46)
[2021-01-28] MEDS: LEVEMIR (INSULIN DETEMIR) 1 UNITS/0.01ML SC SCH (08:19)
[2021-01-28] MEDS: ATORVASTATIN 10 MG TAB PO SCH (08:20)
[2021-01-28 08:24] VITALS: BP 121/69
[2021-01-28] MEDS ORDERED: MAG SULF 1GM/100ML (MAG RUN) 1 GM in IV 1 EA IV ONE (09:00)
[2021-01-28] MEDS ORDERED: BISACODYL 5 MG TAB PO SCH (09:00)
[2021-01-28] MEDS ORDERED: MOM 30ML SUSPENSION UDC PO SCH (09:00)
[2021-01-28 14:00] VITALS: BP 128/58
[2021-01-30] MEDS ORDERED: COVI100V IM (15:28)
[2021-02-08] MEDS ORDERED: METH5TAB3 PO (12:19)
--- NOTE | 2021-02-13 06:44 | IPNPDOC ---
Subjective Date Seen The patient was seen on 01/28/21. Subjective Chief Complaint/HPI Feels good this morning. Had a large bowel movement early in the morning and after that colostomy output has been soft. Constipation has resolved and patient wants to go home. Her SOB is also better and does not feel as winded as yesterday was walking. No abdominal pain, nausea or vomiting. Objective Physical Examination General Exam: Positive: Alert, Cooperative, No Acute Distress Eye Exam: Positive: Conjunctiva & lids normal, EOMI ENT Exam: Positive: Atraumatic, Mucous membr. moist/pink Neck Exam: Positive: Supple; Negative: JVD Chest Exam: Positive: Clear to auscultation, Normal air movement Heart Exam: Positive: Rate Normal, Regular Rhythm, Normal S1, Normal S2; Negative: Murmurs, Rubs Telemetry: Positive: No significant arrhythmia Abdomen Exam: Positive: Normal bowel sounds, Soft, Other (colostomy bag); Negative: Tenderness Extremity Exam: Negative: Clubbing, Cyanosis, Edema Skin Exam: Positive: Nl turgor and temperature Neuro Exam: Positive: Normal Speech, Strength at 5/5 X4 ext, Normal Tone Psych Exam: Positive: Mental status NL, Memory Intact, Oriented x 3 Assessment /Plan Assessment Patient 70 years old female with past history of Metastatic rectal carcinoma with liver, 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 Patient stated that for past few weeks she has been having increased weakness with shortness of breath on exertion. Patient stated that she has been having intermittently bloody discharge from the rectum, patient has ileostomy. Of note, patient has Metastatic recurrence involving rectal anastomotic site, left pelvic sidewall, pulmonary nodules November 2018, treated with FOLFIRI/bevacizumab two cycles 12/23/2018 - 01/13/2019. Started palliative FOLFOX chemotherapy 11/02/2020. In ER patient was found white blood count of 11.1, hemoglobin 7.3, BNP 1532. Chest x-ray negative for acute pulmonary infiltrate Symptomatic anemia Multifactorial. Secondary to chronic GI blood loss, patient has intermittent bloody discharge from rectum stump, chemotherapy, advanced malignancy Status post 2 units of blood transfusion Hemoglobin stable Metastatic Colon cancer Follow-up with oncologist Dyspnea likely due to anemia Resolved after blood transfusion VQ scan negative DVT (deep venous thrombosis) Doppler ultrasound showed There is no ultrasonographic evidence of deep venous thrombosis involving any of the visualized deep venous structures of the right thigh The patient was diagnosed with a nonocclusive DVT of the left thigh on 07/18/2019. Doppler exam shows increased thrombus formation throughout the left thigh deep venous structures. Patient has 2 episode of PE and DVT in the past Patient has IVC filter placed around 2 year ago. Follow-up with Dr Acevedo for possible thrombectomy in the outpatient settings next week Lower GI bleed patient has recurrence of cancer at the rectal stump HH stable after blood transfusion. Hx pulmonary embolism Diabetes mellitus, type 2 continue on insulin CKD (chronic kidney disease), stage III Creatinine on the baseline Continue to monitor Hypothyroidism TSH 10 her dose of levothyroxine was increased to 137 micrograms Constipation Hard stool in colostomy bag resolved Laxatives to continues. Dispo: The Patient is discharged home in a stable condition. Follow up with oncology and IR. Plan/VTE VTE Prophylaxis Ordered?: No VTE Exclusion Pharmacological: Bleeding Risk HIEU COPPOLA MD Feb 07, 2021 00:31
== END 2021-01-28 15:32 | disposition home or self-care (01) | DRG 812 ==
LOC: M ED 10:05 → M ED INP 10:06 → ENRESERV 15:42 → M MSPAV 16:50 → OBSVTOIN 01-27 15:38
PROVIDERS: ADMIT Internal Medicine; ATTEND Internal Medicine Nephrology
PROC: 30233N1 Transfusion of Nonautologous Red Blood Cells into Peripheral Vein, Percutaneous Approach (ICD-10-PCS; principal; 2021-01-25)
DX: D50.0 Iron deficiency anemia secondary to blood loss (chronic) (principal); K92.2 Gastrointestinal hemorrhage, unspecified; C79.89 Secondary malignant neoplasm of other specified sites; N82.3 Fistula of vagina to large intestine; C18.9 Malignant neoplasm of colon, unspecified; C78.7 Secondary malignant neoplasm of liver and intrahepatic bile duct; C78.00 Secondary malignant neoplasm of unspecified lung; R06.00 Dyspnea, unspecified; K59.00 Constipation, unspecified; D72.825 Bandemia; Z86.718 Personal history of other venous thrombosis and embolism; Z86.711 Personal history of pulmonary embolism; E11.22 Type 2 diabetes mellitus with diabetic chronic kidney disease; N18.30 Chronic kidney disease, stage 3 unspecified; E03.9 Hypothyroidism, unspecified; Z87.891 Personal history of nicotine dependence; E78.5 Hyperlipidemia, unspecified; Z87.440 Personal history of urinary (tract) infections; D59.4 Other nonautoimmune hemolytic anemias; Z92.21 Personal history of antineoplastic chemotherapy; Z92.3 Personal history of irradiation; Z79.899 Other long term (current) drug therapy; Z79.4 Long term (current) use of insulin; Z79.891 Long term (current) use of opiate analgesic; Z88.6 Allergy status to analgesic agent; Z88.8 Allergy status to other drugs, medicaments and biological substances; Z91.041 Radiographic dye allergy status; Z90.49 Acquired absence of other specified parts of digestive tract; Z90.89 Acquired absence of other organs

== ENCOUNTER → 2021-02-07 | Outpatient (POV) | payer MEDICARE ==
[~2021-02-07] VITALS: Ht 157.5 cm; Wt 89.1 kg
[~2021-02-07] MED LIST changes: +ACET1TAB55 PO; +COVI100V IM; +DOK1CAP7 PO; +LEVO125T4 PO; +LEVO175T2 PO; +LIPI10TA PO; +MIRA3350 PO; +ONDA-83 PO; +OXYB15TA14 PO; +SENN18TA PO; +SYNT137T7 PO
[2021-02-07 09:15] VITALS: BP 142/69
--- NOTE | 2021-02-08 12:52 | IRCOV ---
[facility] IR Consult Office Visit IR Consult Office Visit DATE: Feb 07, 2021 REASON FOR CONSULTATION/CHIEF COMPLAINT: Left lower extremity DVT. HISTORY OF PRESENT ILLNESS: 70-year-old female with metastatic rectal cancer with liver, lung, pelvic recurrence and rectovaginal fistula, presents with left lower extremity pain and swelling. Patient states this started 7 days ago. She describes the pain as throbbing under the buttock and she couldn't stand or sit. She feels her left leg is bigger than her right leg. She describes some shortness of breath at baseline. She was then evaluated in the ER and found to have an occlusive left lower extremity DVT. She has prior history of left lower extremity DVT in July 2019, associated with a left femoral neck fracture. At that time, she had an IVC filter placed as she could not be anticoagulated due to anticipated surgery. Since that time, she has not been able to resume anticoagulation, due to bleeding from her rec tovaginal fistula. She denies chest pain, increased shortness of breath or hemoptysis. She has an IVC filter in the correct place. She continues on chemotherapy. Due to her symptoms, she is referred for possible mechanical thrombectomy. ALLERGIES: Please see below. HOME MEDICATIONS: Please see below. PAST MEDICAL HISTORY: PE 2015 DVT 2019 related to a hip fracture Diabetes Hypothyroidism PAST SURGICAL HISTORY: Low anterior resection for colon cancer Liver resection of metastases IVC filter placement FAMILY HISTORY: Noncontributory. SOCIAL HISTORY: Ex-smoker. Stopped in 1969. Denies alcohol or drugs. REVIEW OF SYSTEMS: Otherwise negative. PHYSICAL EXAMINATION: VITAL SIGNS: Please see below. GENERAL APPEARANCE: Appears apprehensive. Uncomfortable at rest due to left leg pain. HEENT: No scleral icterus. RESPIRATORY: Normal breathing at rest. CARDIOVASCULAR: Normal rate. ABDOMEN: Soft nontender. EXTREMITIES: Left lower extremity swelling to the thigh. Left lower extremity is larger than right lower extremity. Calf is tense and tender to touch. Tenderness on left posterior thigh compression. Skin warm to touch. Color normal. Popliteal pulse 2+ DP/PT 2+ Right lower extremity: Unremarkable. NEUROLOGICAL: Alert and oriented. PSYCHIATRIC: Appropriate to circumstance. LABORATORY DATA: 02/08/2021 hemoglobin 8.9 hematocrit 27.8 WBC 11.7 platelets 189. Sodium 132 potassium 4.3 BUN 52 creatinine 1.62 GFR 33.3. 01/25/2021 INR 1.28 Imaging: I personally reviewed the bilateral lower extremity venous study per formed 01/26/2021. There is completely occlusive thrombus in the left lower extremity popliteal, femoral and common femoral vein which extends beyond the field of view and may involve the left iliac vein. ASSESSMENT/PLAN: 70-year-old female with new completely occlusive left lower extremity DVT with iliofemoral involvement. She is symptomatic. She cannot be anticoagulated due to her bleeding. Given the severity of her signs and symptoms, I agree she would benefit from left lower extremity mechanical throm bectomy if possible. We cannot give her any lysis treatment in the same setting due to her bleeding. As the patient is hypercoagulable due to her underlying cancer and cannot be anticoagulated, she remains at risk of recurrent left lower extremity DVT and DVT progression. She does have an IVC filter in place to protect against PE. While she may still suffer small PEs, the IVC filter is designed to decrease the risk of a large saddle embolus. We discussed the risks and benefits of thrombectomy and patient would like to proceed. We'll schedule the patient for this procedure. Postprocedure, she should wear compression stockings to the thigh ongoing and is encouraged to ambulate for at least 30 minutes every day, to decrease risk of recurrent left lower extremity DVT. I spent 30 minutes reviewing patient's records, imaging and in consultation with the patient. Thank you for this referral. CC Dr. Lesli Lazaro Allergies Coded Allergies: aspirin (Verified Allergy, Severe, ANAPHYLAXIS, 01/07/19) Contrast Media (Verified Allergy, Unknown, itching for days, 11/19/18) atenolol (Verified Adverse Reaction, Intermediate, NAUSEA AND DIZZINESS, 01/07/19) lisinopril (Verified Adverse Reaction, Intermediate, VERY DIZZY, 01/07/19) Home Medications Scheduled Atorvastatin Calcium (Lipitor), 10 MG PO DAILY, (Reported) Gabapentin (Gabapentin), 600 MG PO QHS, (Reported) Hydrochlorothiazide (Hydrochlorothiazide), 12.5 MG PO DAILY, (Reported) Insulin Degludec (Tresiba Flextouch U-100), 36 UNIT SC QHS, (Reported) Levothyroxine Sodium (Synthroid), 137 MCG PO DAILY Nitrofurantoin Monohyd/M-Cryst (Nitrofurantoin [place]-Mcr 100 mg), 100 MG PO QHS, (Reported) Oxybutynin Chloride (Oxybutynin Chloride ER), 15 MG PO QHS, (Reported) Polyethylene Glycol 3350 (Miralax), 17 GRAM PO DAILY Prochlorperazine Maleate (Prochlorperazine Maleate), 1 TAB PO Q6H Scheduled PRN Acetaminophen (Acetaminophen), 650 MG PO Q4H PRN for MILD PAIN OR FEVER Diphenhydramine HCl (Benadryl), 25 MG PO DAILY PRN for ITCHING, (Reported) Docusate Sodium (Dok), 100 MG PO DAILYPRN PRN for CONSTIPATION Loperamide HCl (Loperamide), 2 MG PO Q6H PRN for AFTER EACH LOOSE STOOL, (Reported) Nystatin (Nystatin Powder), 1 DOSE TOP BID PRN for ITCHING, (Reported) Ondansetron (Ondansetron Odt), 8 MG PO Q12H PRN for NAUSEA OR VOMITING Ondansetron HCl (Ondansetron HCl), 4 MG PO Q4H PRN for nausea Miscellaneous Medications Covid-19 Vacc,Mrna(Moderna)/Pf (Moderna Covid19 Vacc(Unapprov)), 100 MCG IM, (Reported) VS, I&O, 24H, Fishbone Vital Signs/I&O Vital Signs Date Time Temp Pulse Resp B/P (MAP) Pulse Ox O2 Delivery O2 Flow Rate FiO2 02/07/21 09:15 97.6 81 20 142/69 (93) 97 Room Air ELIZA ARMENDARIZ MD Feb 08, 2021 12:52
== END ==
LOC: M IRPOV 08:59
PROVIDERS: ATTEND Radiology Diagnostic Radiology
DX: I82.402 Acute embolism and thrombosis of unspecified deep veins of left lower extremity (principal); C20 Malignant neoplasm of rectum; C78.7 Secondary malignant neoplasm of liver and intrahepatic bile duct; C78.00 Secondary malignant neoplasm of unspecified lung; E03.9 Hypothyroidism, unspecified; E11.9 Type 2 diabetes mellitus without complications; Z86.711 Personal history of pulmonary embolism; Z87.891 Personal history of nicotine dependence; Z92.21 Personal history of antineoplastic chemotherapy; Z95.828 Presence of other vascular implants and grafts

== ENCOUNTER 2021-02-14 10:50 | Emergency (ER) | payer MEDICARE ==
[~2021-02-14] VITALS: Ht 157.5 cm; Wt 89.1 kg
[2021-02-14 11:00] VITALS: BP 156/73
[2021-02-14] MEDS ORDERED: NS 1,000 ML IV SCH (12:15)
--- NOTE | 2021-02-14 12:57 | REP ---
INDICATION: pain and tenderness COMPARISON: 01/26/2021. TECHNIQUE: Real time compression and duplex Doppler interrogation of the bilateral lower extremity deep venous system is performed. FINDINGS: Once again the right common femoral, femoral and popliteal veins are fully compressible with transducer pressure and demonstrate normal spontaneous and phasic flow without evidence of deep vein thrombosis. Extensive thrombus is seen throughout the left common femoral, femoral and popliteal veins as on the prior study. This appeared to be diffusely occlusive on the prior study but now there is partial flow in the mid to distal femoral vein. IMPRESSION: No evidence of deep venous thrombosis of the right lower extremity femoral popliteal venous system. Extensive occlusive thrombus again seen throughout the left common femoral, femoral and popliteal veins with mild improvement in the mid to distal femoral vein, the thrombus at those levels is now nonocclusive. <Electronically signed by Kt Ramirez > 02/14/21 [id number]
--- NOTE | 2021-02-14 13:31 | REP ---
INDICATION: sob. COMPARISON: 01/25/2021. TECHNIQUE: Single portable AP view of the chest was performed. FINDINGS: There is no acute infiltrate or pulmonary edema. Lungs are clear. The heart is not significantly enlarged. The mediastinal silhouette is unremarkable. The visualized osseous structures are intact.Left central venous catheter tip is in the superior vena cava IMPRESSION: No acute pulmonary disease. <Electronically signed by Kt Ramirez > 02/14/21 [id number]
[2021-02-14 13:45] LABS: BASO % 0.2 % (0.0-1.0); EOS # 0.1 10^3/uL (0.0-0.5); HEMOGLOBIN 8.9 g/dl (12.0-15.5); LYMPH # 0.5 10^3/uL (1.5-5.0); LYMPH % 8.8 % (24.0-44.0); MEAN CORPUSCULAR HEMOGLOBIN 29.7 pg (27.0-33.0); MONO # 0.1 10^3/uL (0.0-0.8); NEUTROPHILS # 5.4 10^3/uL (1.5-8.5); NEUTROPHILS % 87.3 % (36.0-66.0); WHITE BLOOD COUNT 6.1 10^3/uL (4.0-10.0)
[2021-02-14 14:22] LABS: ALT/SGPT 12 U/L (12-78); BILIRUBIN,TOTAL 0.7 MG/DL (0.2-1.0); BLOOD UREA NITROGEN 48 MG/DL (7-18); CALCIUM LEVEL 8.4 MG/DL (8.8-10.2); CARBON DIOXIDE LEVEL 26 MEQ/L (21-32); CHLORIDE LEVEL 100 MEQ/L (98-107); CK-MB VALUE MASS < 1.0 NG/ML (<3.6); CPK CREATINE PHOSPHOKINASE 29 U/L (26-192); CREATININE FOR GFR 1.53 MG/DL (0.55-1.30); FREE T4 1.71 NG/DL (0.76-1.46); GLOMERULAR FILTRATION RATE 35.6 (>39); GLUCOSE, FASTING 294 MG/DL (70-100); MB/CK RELATIVE INDEX 3.45 (< OR =4); PHOSPHORUS LEVEL 3.1 MG/DL (2.5-4.9); POTASSIUM SERUM 4.2 MEQ/L (3.5-5.1); SODIUM LEVEL 134 MEQ/L (136-145); TOTAL PROTEIN 6.6 GM/DL (6.4-8.2); TROPONIN I < 0.02 NG/ML (< 0.10)
[2021-02-14 14:48] LABS: PLTBLUE- EDTA FREE CALC 110 K/mm3 (172-450)
[2021-02-14 15:16] LABS: PLTBLUE- EDTA FREE MACHINE 100 10^3/uL (172-450)
[2021-02-14] MEDS ORDERED: methylPREDNISolone 125MG 2ML VIAL IV ONE (15:35)
[2021-02-14] MEDS ORDERED: diphenhydrAMINE 50MG/ML VIAL (J1200) IV ONE (15:35)
[2021-02-14] MEDS ORDERED: ISOVUE-370 76% 100ML VIAL As Ordered ONE (16:51)
[2021-02-14 18:05] LABS: INFLUENZA A AMPLIFICATION NEGATIVE (NEGATIVE); INFLUENZA B AMPLIFICATION NEGATIVE (NEGATIVE)
[2021-02-14 18:11] LABS: CK-MB VALUE MASS < 1.0 NG/ML (<3.6); CPK CREATINE PHOSPHOKINASE 29 U/L (26-192); MB/CK RELATIVE INDEX 3.45 (< OR =4); TROPONIN I < 0.02 NG/ML (< 0.10)
--- NOTE | 2021-02-14 19:26 | REPVR ---
PROCEDURE INFORMATION: Exam: CTA Chest With Contrast Exam date and time: 02/14/2021 6:10 PM Age: 70 years old Clinical indication: Dyspnea; Additional info: Dyspnea and fatigue and dvt TECHNIQUE: Imaging protocol: Computed tomographic angiography of the chest with contrast. 3D rendering (Not supervised by radiologist): MIP and/or 3D reconstructed images were created by the technologist. Radiation optimization: All CT scans at this facility use at least one of these dose optimization techniques: automated exposure control; mA and/or kV adjustment per patient size (includes targeted exams where dose is matched to clinical indication); or iterative reconstruction. Contrast material: ISOVUE 370; Contrast volume: 75 ml; Contrast route: INTRAVENOUS (IV); COMPARISON: CT ANGIO CHEST 01/22/2019 5:15 PM FINDINGS: Pulmonary arteries: No CT evidence of acute pulmonary embolism. Aorta: No CT evidence of acute thoracic aortic dissection, thoracic aneurysm or acute intramural thoracic aortic hematoma. Lungs: Both lungs are well-aerated. A small 5 mm diameter solid intrapulmonary nodule is present in the anterior left upper lobe on image 48 of series 401 and image 58 of series 403. Pleural spaces: Unremarkable. No pneumothorax. No pleural effusion. Heart: The heart size is normal. Normal pulmonary vasculature. Moderate coronary artery calcification is present. A left subclavian Kiqjew-P-Yocs catheter is present with the distal tip of the catheter in the mid-SVC. Lymph nodes: Unremarkable. No enlarged lymph nodes. Liver: There is a 1.3 cm diameter hypodense mass in the superior left lobe of the liver on image 141 of series 401. This has benign features of a sharp margin and a homogeneous low internal attenuation of 5 Hounsfield units suggestive of a benign cyst. Bones/joints: Moderate chronic degenerative anterior vertebral body endplate osteophytic disease is seen in the mid to lower thoracic spine. Soft tissues: Unremarkable. IMPRESSION: 1. No CT evidence of acute pulmonary embolism. 2. No CT evidence of acute thoracic aortic dissection, thoracic aneurysm or acute intramural thoracic aortic hematoma. 3. The heart size is normal. Normal pulmonary vasculature. Moderate coronary artery calcification is present. A left subclavian Zfzjvu-X-Kkcx catheter is present with the distal tip of the catheter in the mid-SVC. 4. Both lungs are well-aerated. A small 5 mm diameter solid intrapulmonary nodule is present in the anterior left upper lobe on image 48 of series 401 and image 58 of series 403. For patients at low risk for lung cancer, (minimal or absent history of smoking and of other known risk factors), no routine follow-up is indicated. For patients at high risk (history of smoking or of other known risk factors), consider optional CT Chest at 12 months. Reference: Ivonne Paul, et al. Guidelines for Management of Incidental Pulmonary Nodules Detected on CT Images: From the Fleischner Society 2017. Radiology. 2017;284(1):228-243. 5. Moderate chronic degenerative anterior vertebral body endplate osteophytic disease is seen in the mid to lower thoracic spine. 6. There is a 1.3 cm diameter hypodense mass in the superior left lobe of the liver on image 141 of series 401. This has benign features of a sharp margin and a homogeneous low internal attenuation of 5 Hounsfield units suggestive of a benign cyst. No further follow-up is recommended. Reference: Management of Incidental Liver Lesions on CT: A White Paper of the ACR Incidental Findings Committee. Keaton Ray MD, et al. Journal of the [place] [employer], Aug 2017, Volume 14, Issue 11, 2217-5842. Electronically signed by: Abdoulaye Gardiner On 02/14/2021 19:26:05 PM
--- NOTE | 2021-02-15 08:06 | ECGEPIP ---
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
== END 2021-02-14 21:11 | disposition home or self-care (01) ==
LOC: M ED 10:50
DX: R06.02 Shortness of breath (principal); E11.9 Type 2 diabetes mellitus without complications; D64.9 Anemia, unspecified; Z85.038 Personal history of other malignant neoplasm of large intestine; C78.7 Secondary malignant neoplasm of liver and intrahepatic bile duct; C78.00 Secondary malignant neoplasm of unspecified lung; C79.89 Secondary malignant neoplasm of other specified sites; Z90.89 Acquired absence of other organs; Z92.21 Personal history of antineoplastic chemotherapy; N18.9 Chronic kidney disease, unspecified; Z86.711 Personal history of pulmonary embolism; Z86.718 Personal history of other venous thrombosis and embolism; Z87.891 Personal history of nicotine dependence; Z95.828 Presence of other vascular implants and grafts; Z79.899 Other long term (current) drug therapy; Z91.041 Radiographic dye allergy status; Z88.8 Allergy status to other drugs, medicaments and biological substances
CPT/HCPCS: 36415; 71045; 71275; 80053; 82550; 82553; 83735; 84100; 84439; 84443; 84484; 85025; 85049; 86850; 86900; 86901; 87040; 87502; 93005; 93041; 93970; 94760; 96361; 96374; 96375; 99285; J1200; J2930; Q9967; U0002

== ENCOUNTER → 2021-02-16 | Outpatient (CLI) | payer MEDICARE ==
[~2021-02-16] MED LIST changes: +ISOVUE-300 61% 50ML VIAL As Ordered ONE; +LIDOCAINE 1% MDV 20ML VIAL As Ordered ONE; +MIDAZOLAM INJ 2MG/2ML VIAL (J2250 PER 1MG) As Ordered ONE; +SODIUM CHLORIDE 0.9% INJ 10 ML SYR IV SCH; +diphenhydrAMINE 50MG/ML VIAL (J1200) As Ordered ONE; +fentaNYL 100 MCG/2 ML INJECTION (J3010) As Ordered ONE
--- NOTE | 2021-02-16 13:11 | IRHP ---
[facility] IR Pre-Procedure H & P General Date of Service: February 16, 2021 Procedure: Same Day Surgery Interval History and Physical I have seen the patient and reviewed last H & P performed within 30 days. There is no significant interval change. History of Present Illness Chief Complaint The patient is a 70-year-old female admitted with a reason for visit of DVT. PRE-PROCEDURE DIAGNOSIS: Iliofemoral DVT HEART: Normal rate. LUNGS: Normal breathing at rest. ASA Classification ASA Classification: III-Severe systemic dis. Mallampati Score: II NPO: Yes Problems with prior sedation: No Obstructive Sleep Apnea: No Plan moderate sedation Allergies Coded Allergies: aspirin (Verified Allergy, Severe, ANAPHYLAXIS, 01/07/19) Contrast Media (Verified Allergy, Unknown, itching for days, 11/19/18) atenolol (Verified Adverse Reaction, Intermediate, NAUSEA AND DIZZINESS, 01/07/19) lisinopril (Verified Adverse Reaction, Intermediate, VERY DIZZY, 01/07/19) Home Medications Scheduled Atorvastatin Calcium (Lipitor), 10 MG PO DAILY, (Reported) Gabapentin (Gabapentin), 600 MG PO QHS, (Reported) Hydrochlorothiazide (Hydrochlorothiazide), 12.5 MG PO DAILY, (Reported) Insulin Degludec (Tresiba Flextouch U-100), 36 UNIT SC QHS, (Reported) Levothyroxine Sodium (Synthroid), 137 MCG PO DAILY Methadone HCl (Methadone HCl), 5 MG PO QHS Nitrofurantoin Monohyd/M-Cryst (Nitrofurantoin [place]-Mcr 100 mg), 100 MG PO QHS, (Reported) Oxybutynin Chloride (Oxybutynin Chloride ER), 15 MG PO QHS, (Reported) Polyethylene Glycol 3350 (Miralax), 17 GRAM PO DAILY Prochlorperazine Maleate (Prochlorperazine Maleate), 1 TAB PO Q6H Scheduled PRN Acetaminophen (Acetaminophen), 650 MG PO Q4H PRN for MILD PAIN OR FEVER Diphenhydramine HCl (Benadryl), 25 MG PO DAILY PRN for ITCHING, (Reported) Docusate Sodium (Dok), 100 MG PO DAILYPRN PRN for CONSTIPATION Loperamide HCl (Loperamide), 2 MG PO Q6H PRN for AFTER EACH LOOSE STOOL, (Reported) Nystatin (Nystatin Powder), 1 DOSE TOP BID PRN for ITCHING, (Reported) Ondansetron (Ondansetron Odt), 8 MG PO Q12H PRN for NAUSEA OR VOMITING Ondansetron HCl (Ondansetron HCl), 4 MG PO Q4H PRN for nausea Miscellaneous Medications Covid-19 Vacc,Mrna(Moderna)/Pf (Moderna Covid19 Vacc(Unapprov)), 100 MCG IM, (Reported) ELIZA ARMENDARIZ MD February 16, 2021 13:11
[2021-02-16 16:00] VITALS: BP 134/60
--- NOTE | 2021-02-17 12:41 | IRPON ---
IR Postoperative Note Date Of Procedure: February 16, 2021 Time Of Procedure: 16:00 IR Postoperative Note IR Left leg venogram. IR Moderate sedation. Clinical Information:Left lower extremity pain and swelling with iliofemoral DVT. Patient cannot be on anticoagulation due to bleeding. Patient presents for mechanical thrombectomy. Physician: Dr. Ragsdale. Procedure: The patient was advised of the benefits, risks, and alternatives of the procedure and informed consent was obtained. A time out was performed with verification of the patient's name, MRN, site of procedure, and type of procedure to be performed. The patient was positioned in the prone position on the angiographic table. The site was prepped and draped in the usual sterile fashion. Moderate sedation was performed by the physician including the presence of an independent trained RN, who assisted in monitoring the patient's level of consciousness and physiological status. Following the administration of fentanyl and Versed, the physician spent 45 minutes of continuous [id number] time with the patient. A maintenance truck driver radiograph reveals hardware in the left hip. Ultrasound of the left popliteal fossa demonstrates thrombosed left popliteal vein. Lidocaine was used for local anesthesia. The left popliteal vein was accessed, under ultrasound guidance with a microintroducer set. A short 0.018" Freeman wire was inserted under fluoroscopy guidance and the needle was exchanged for a 4 Fr microintroducer sheath. The guidewire and dilator were removed and a 0.035" Bentson wire was placed into the femoral vein. A 6 Fr sheath was placed over the wire. A left lower extremity venogram was performed. This demonstrates filling defects within the left femoral vein due to partially occlusive thrombus. Resultant filling of perforators and drainage via superficial system. 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 Catheter, wire and sheath were removed, pressure held and hemostasis achieved. A sterile dressing was applied to the site. The patient tolerated the procedure well and was returned to the PRU in stable condition. EBL: < 5 mL. Complications:None. Impression: Left leg venogram demonstrates partially occlusive thrombus in the left femoral vein. 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 This would require an extensive procedure for left common iliac and external iliac vein recanalization followed by angioplasty and stenting which would have to be done under anesthesia. However, given patient's inability to tolerate aspirin, Plavix or any form of anticoagulation, further aggressive attempts at recanalization of this blockage may be futile. The reason being, this extensive venous reconstruction does require at least 6 months of anticoagulation post procedure, to ensure stent patency. We will discuss this further in clinic. Thank you for this referral. Cc ELIZA Ghotra MD February 17, 2021 12:41
== END ==
LOC: M IRPRO 11:04
PROVIDERS: ATTEND Radiology Diagnostic Radiology
DX: I82.412 Acute embolism and thrombosis of left femoral vein (principal); I82.523 Chronic embolism and thrombosis of iliac vein, bilateral

== ENCOUNTER 2021-02-22 08:21 | Inpatient (IN) | payer MEDICARE ==
[~2021-02-22] VITALS: Ht 157.5 cm; Wt 91.3 kg
[~2021-02-22 08:21] MED LIST changes: -ISOVUE-300 61% 50ML VIAL As Ordered ONE; -LIDOCAINE 1% MDV 20ML VIAL As Ordered ONE; -MIDAZOLAM INJ 2MG/2ML VIAL (J2250 PER 1MG) As Ordered ONE; -SODIUM CHLORIDE 0.9% INJ 10 ML SYR IV SCH; -diphenhydrAMINE 50MG/ML VIAL (J1200) As Ordered ONE; -fentaNYL 100 MCG/2 ML INJECTION (J3010) As Ordered ONE
[2021-02-22] MEDS ORDERED: ACETAMINOPHEN TAB 650MG DOSE (2X325MG) PO ONE (08:45)
--- NOTE | 2021-02-22 09:10 | REP ---
INDICATION: DYSPNEA/COUGH. COMPARISON: 02/14/2021. TECHNIQUE: Single portable AP view of the chest was performed. FINDINGS: There is no acute infiltrate or pulmonary edema. Lungs are clear. The heart is not significantly enlarged. The mediastinal silhouette is unremarkable. The visualized osseous structures are intact.A left central venous catheter is again seen with the tip in the superior vena cava. IMPRESSION: No acute pulmonary disease. <Electronically signed by Kt Ramirez > 02/22/21 [id number]
[2021-02-22 09:17] LABS: HEMATOCRIT 23.9 % (36.0-47.0); HEMOGLOBIN 7.9 g/dl (12.0-15.5); MEAN CORPUSCULAR HGB CONC 33.1 g/dl (32.0-36.5); MEAN CORPUSCULAR VOLUME 90.9 fl (80.0-96.0); RED BLOOD COUNT 2.63 10^6/uL (4.00-5.40)
[2021-02-22] MEDS ORDERED: NS 1,000 ML IV ONE (09:25)
[2021-02-22 09:44] LABS: ATYPICAL LYMPH 3 % (0-5); LYMPHOCYTES 27 % (16-44); MONOCYTES 7 % (0-5); MYELOCYTES 1 % (0-0); NEUTROPHILS 53 % (28-66); PLATELET CLUMPS SMALL AMT; PLATELET ESTIMATE INVALID (NORMAL)
[2021-02-22 09:45] LABS: ANISOCYTOSIS 2+; MICROCYTOSIS 1+
[2021-02-22 09:46] LABS: TOXIC GRANULATION 1+
[2021-02-22 09:51] LABS: ALBUMIN 2.8 GM/DL (3.2-5.2); ALT/SGPT 16 U/L (12-78); BILIRUBIN,DIRECT 0.3 MG/DL (0.0-0.2); BLOOD UREA NITROGEN 39 MG/DL (7-18); CARBON DIOXIDE LEVEL 25 MEQ/L (21-32); CHLORIDE LEVEL 99 MEQ/L (98-107); CK-MB VALUE MASS < 1.0 NG/ML (<3.6); CPK CREATINE PHOSPHOKINASE 21 U/L (26-192); CREATININE FOR GFR 1.69 MG/DL (0.55-1.30); GLOMERULAR FILTRATION RATE 31.8 (>39); GLUCOSE, FASTING 320 MG/DL (70-100); MB/CK RELATIVE INDEX 4.76 (< OR =4); POTASSIUM SERUM 3.8 MEQ/L (3.5-5.1); SODIUM LEVEL 132 MEQ/L (136-145); TOTAL PROTEIN 6.1 GM/DL (6.4-8.2); TROPONIN I < 0.02 NG/ML (< 0.10)
[2021-02-22] MEDS ORDERED: cefTRIAXone SOD 2 GM in D5W MINI-BAG PLUS 50 ML IV ONE (09:55)
[2021-02-22] MEDS ORDERED: NS 1,670 ML in IV 1 EA IV ONE (09:55)
[2021-02-22] MEDS ORDERED: MIRA3350 PO (11:10)
[2021-02-22] MEDS ORDERED: SYNT125T PO (11:10)
[2021-02-22] MEDS ORDERED: MM S100C PO (11:10)
[2021-02-22] MEDS ORDERED: METH5TA PO (11:10)
[2021-02-22 11:23] VITALS: BP 135/61
[2021-02-22 11:31] LABS: FERRITIN 877 NG/ML (8-252); IRON (FE) 15 UG/DL (50-170); PERCENT SATURATION 7.4 % (13.2-45.0); TOTAL IRON BINDING CAPACITY 203 UG/DL (250-450)
[2021-02-22 11:40] VITALS: BP 114/58
[2021-02-22] MEDS ORDERED: ACETAMINOPHEN TAB 650MG DOSE (2X325MG) PO PRN (11:50)
[2021-02-22] MEDS ORDERED: MAALOX 30 ML SUSP *UDC PO PRN (11:50)
[2021-02-22] MEDS ORDERED: MOM 30ML SUSPENSION UDC PO PRN (11:50)
[2021-02-22] MEDS ORDERED: ONDANSETRON 4MG/2ML VIAL IV ONE (12:15)
[2021-02-22] MEDS ORDERED: METHADONE 5 MG TAB (S0109) PO PRN (12:20)
[2021-02-22] MEDS ORDERED: NYSTATIN 100,000 UNITS/GM TOPICAL PWD 15 GM TOP PRN (12:20)
[2021-02-22] MEDS ORDERED: GLUCOSE 4GM CHEW TABLET PO PRN (12:25)
[2021-02-22] MEDS ORDERED: GLUCAGON INJ 1MG VIAL SC PRN (12:25)
[2021-02-22] MEDS ORDERED: DEXTROSE 50% 50 ML SYRINGE IV PRN (12:25)
[2021-02-22 12:40] VITALS: BP 123/60
[2021-02-22 13:17] VITALS: BP 137/63
[2021-02-22 14:03] LABS: ABG BASE EXCESS -4.1 (-2.0-2.0); ABG HCO3 19.3 MEQ/L (22.0-26.0); ABG O2 SATURATION 97.7 % (95.0-99.0); ABG PARTIAL PRESSURE CO2 29.2 mmHg (35.0-45.0); ABG PARTIAL PRESSURE O2 107.8 mmHg (75.0-100.0); ABG STANDARD HCO3 21.1 MEQ/L (22.0-26.0); ABG TOTAL CO2 20.2 MEQ/L (23.0-31.0); ABG pH (ARTERIAL) 7.439 UNITS (7.350-7.450)
[2021-02-22 15:16] LABS: ALBUMIN 2.4 GM/DL (3.2-5.2); CALCIUM LEVEL 7.5 MG/DL (8.8-10.2); CREATININE FOR GFR 1.44 MG/DL (0.55-1.30); GLOMERULAR FILTRATION RATE 38.2 (>39); POTASSIUM SERUM 3.7 MEQ/L (3.5-5.1); TOTAL PROTEIN 5.3 GM/DL (6.4-8.2)
[2021-02-22 15:16] LABS: HEMATOCRIT 24.8 % (36.0-47.0); HEMOGLOBIN 8.3 g/dl (12.0-15.5); MEAN CORPUSCULAR HEMOGLOBIN 30.5 pg (27.0-33.0); MEAN CORPUSCULAR HGB CONC 33.5 g/dl (32.0-36.5); MEAN CORPUSCULAR VOLUME 91.2 fl (80.0-96.0); PLATELET COUNT, AUTOMATED 126 10^3/uL (150-450); RED BLOOD COUNT 2.72 10^6/uL (4.00-5.40); WHITE BLOOD COUNT 3.3 10^3/uL (4.0-10.0)
[2021-02-22 15:40] LABS: ATYPICAL LYMPH 8 % (0-5); LYMPHOCYTES 16 % (16-44); MONOCYTES 13 % (0-5); NEUTROPHILS 47 % (28-66)
[2021-02-22 15:41] LABS: PLATELET CLUMPS SMALL AMT; PLATELET ESTIMATE NORMAL (NORMAL); TOXIC GRANULATION 1+
[2021-02-22 15:42] LABS: ANISOCYTOSIS 1+; HYPOCHROMASIA 1+; POIKILOCYTOSIS 1+
[2021-02-22 15:50] VITALS: BP 110/67
[2021-02-22] MEDS: NS 1,000 ML IV SCH (16:37)
[2021-02-22] MEDS: ATORVASTATIN 10 MG TAB PO SCH (17:28)
[2021-02-22] MEDS: HumaLOG INSULIN (NovoLOG) PER UNIT SC SCH ×2 (17:30→23:55)
--- NOTE | 2021-02-22 18:41 | HPEPDOC ---
[facility] Medical History & Physical Date of Admission February 22, 2021 Date of Service: February 22, 2021 Attending Physician: DOLLY SEGURA MD History and Physical CHIEF COMPLAINT: Weakness leading to fall. HISTORY OF PRESENT ILLNESS: This is a 70-year-old female with a past medical history of metastases rectal carcinoma with metastases to lesions to the liver and lung and a pelvic recurrence with an ileostomy, recto vaginal fistula, pulmonary embolism 2016, DVT in 2018 after a hip fracture, type 2 diabetes, hypothyroidism presented to the hospital after she fell because of inability to get up from her bed. Patient states that for the past few weeks she has been having increased weakness. Patient is being treated with chemotherapy for a metastatic recurrence involving rectal anastomotic site, left pelvic sidewall, pulmonary nodules since October 2020. In the ER the patient was found to have a temperature of 100.8, pulse of 94, respiratory rate 18, and a blood pressure of 69/35 suspected to be having sepsis was admitted to the hospitalist service. Patient was also found to have a hemoglobin of 7.9 due to chronic anemia with a creatinine of 1.69 which is little higher than her baseline. In the ED patient received about 3 L of fluids and a unit of blood and to take care of hypotension. Chest x-ray was completely unremarkable. UA was ordered. Blood cultures 2 were ordered. A dose of IV Rocephin was given. And the care was transferred to the hospitalist service PAST MEDICAL HISTORY: 1. Colon cancer in 1999 for resected, recurrence again in 2013 resected, it radiated, chemotherapy 2 times, liver resection also. 2. Type 2 diabetes mellitus. 3. Hypo thyroidism. 4.pulmonary embolism in 2015 after liver resectiontreated with [place] for 6 months. 5.left hydronephrosis with progressive renal insufficiency 6.recurrent UTIs PAST SURGICAL HISTORY: 1.: Colon cancer resection [id number] 2. tonsillectomy. [facility]. [facility]. 4.left IVC port placement in July 2019 5.partial left hip replacement July 2019. 6.colostomy in February 2019 7.urethral reimplantationDr. Solitario in 03/05/2018 8.left urethral stent removal 12/24/2017. SOCIAL HISTORY: Marital status: Resides in: Home Tobacco use: Former smoker ETOH: Denies Illicit drug use: Denies FAMILY HISTORY: Father: at 68 years, history of hypertension, diabetes mellitus, angina, cause of ACS. Mother: at 70 years, history of hypertension, strokewhich was the cause of . Children: Son has a history of kidney diseasepassed away. Other 2 sons are well Hereditary Diseases: None ALLERGIES: Please see below. REVIEW OF SYSTEMS: CONSTITUTIONAL: Reports weakness and fatigue Denies any reported fevers, night sweats. HEENT: Denies any sore throat, runny nose, redness in the eyes.. CARDIOVASCULAR: Denies any shortness of breath, palpitations, PND, chest pain. RESPIRATORY: Denies shortness of breath. GASTROINTESTINAL: Denies any constipation, reports occasional diarrhea.. GENITOURINARY: Denies any dysuria, polyuria . SKIN: Denies bruising, rashes, petechia.. MUSCULOSKELETAL: Denies pain in any joint. NEUROLOGICAL: Denies paresthesias, numbness, loss of sensation. PSYCHIATRIC: Denies mood. Changes or depression HOME MEDICATIONS: Please see below. PHYSICAL EXAMINATION: VITAL SIGNS: Temperature 99.8, pulse 79, respiratory rate 18, blood pressure 110/55, pulse oximetry 89 % on room air. GENERAL APPEARANCE: Patient looks alert, cooperative, not in any acute distress. HEENT: Atraumatic, normocephalic, no conjunctival pallor, no scleral icterus PERRLA, EOMI. CARDIOVASCULAR: S1 and S2 heard, rate and rhythm normal. No murmurs appreciated. LUNGS:. Clear to auscultation bilaterally, no wheezing, rhonchi or crackles heard. ABDOMEN: Nondistended, nontender, no organomegaly, no rashes. Patient's colostomy site looked healthy, with no erythema or inflammation noticed around the site no leakage no bleeding no discharge. EXTREMITIES: 1+ pedal edema left lower extremity, good volume pulses , good capillary refill + NEUROLOGICAL: 4/5 motor strength, sensations intact. PSYCHIATRIC:, Motor and affect. LABORATORY DATA: See below. IMAGING: Chest x-ray done on 02/22/2021: MICROBIOLOGY: Please see below. ASSESSMENT AND:PLAN: .This is a 70-year-old female with a past medical history of metastases rectal carcinoma with metastases to lesions to the liver and lung and a pelvic recurrence with an ileostomy, recto vaginal fistula, pulmonary embolism 2016, DVT in 2019 after a hip fracture, type 2 diabetes, hypothyroidism presented to the hospital after she fell because of inability to get up from her bed. Patient states that for the past few weeks she has been having increased weakness especially after her chemotherapy, last dose of chemotherapy was 2 weeks ago.. Patient is being treated with chemotherapy for a metastatic recurrence involving rectal anastomotic site, left pelvic sidewall, pulmonary nodules since October 2020 presents today with weakness resulting in a fall, she fell on the carpet and did not hit her head and doesn't seem to be injured. In the ED patient was found to have a temperature of 100.8 and blood pressure of 69/35 concerning for sepsis . SIRS/SEPSIS: Source unknown (multiple sources of infection including a recto vaginal fistula) -Continuous monitoring of vitals -Patient was started on IV fluids given almost 3 L and was given a unit of blood in the ED. -Patient has continued to be on IV maintenance fluids at a rate of 100 mils per hour. -She has been fluid responsive and her blood pressure came up to 135/61. -Patient was given 1 dose of 2 g Rocephin IV in the ED and continued on IV 2 g Rocephin every 24 hours ON the floors. -Urine analysis has been ordered- came back positive for bacteria, leukocyte esterase, nitriteswhich is expected in this patient since she has a history of rectovaginal fistula. Source of infection still under suspect. Waiting for urine cultures. -blood cultures 2 have been ordered. -Chest x-ray was negative. No respiratory symptoms. 2. Chronic anemia(hemoglobin of 7.9) secondary to chronic GI loss, advanced malignancy, chemotherapy: -Patient was given 1 unit of blood. -We'll repeat CBC tomorrow. -However patient reports no shortness of breath. 3.. Nausea: -No episodes of vomiting. -Start with ondansetron as needed. 4. Chronic kidney disease-creatinine 1.69-slightly higher than baseline creatinine secondary to chemotherapy: -Patient is being hydrated with IV fluids. -Patient recently received nephrotoxic chemotherapy 2 weeks ago. 5. Colon cancer metastasized to multiple sites: -Patient continues to be on chemotherapy. -Was due for her next dose today but missed it. 6. Type 2 diabetes mellitus -Patient started on sliding scale insulin. With a hypoglycemic protocol in place. -Patient kept on a consistent carb diet. 7.DVT (deep venous thrombosis) Doppler ultrasound showed There is no ultrasonographic evidence of deep venous thrombosis involving any of the visualized deep venous structures of the right thigh The patient was diagnosed with a nonocclusive DVT of the left thigh on 07/18/2019. Doppler exam shows increased thrombus formation throughout the left thigh deep venous structures. Patient has 2 episode of PE and DVT in the past Patient has IVC filter placed around 2 years ago. Follow-up with IR as outpatient. 7. Hypothyroidism: -Continue with levothyroxine. 8. Constipation: -Patient put on a when necessary dose of MiraLAX. DVT prophylaxis: Teds and sequentials. Since the patient has a contraindication (GI bleed)to oral anticoagulation has an IVC filter in place. DISPOSITION: Patient will most likely stay for 2 nightsbefore deemed fit for discharge. Vital Signs Vital Signs Date Time Temp Pulse Resp B/P (MAP) Pulse Ox O2 Delivery O2 Flow Rate FiO2 02/22/21 15:33 98.2 75 18 110/55 (73) 99 Room Air Laboratory Data Labs 24H Laboratory Tests 2 02/22/21 08:54: Neutrophils (%) (Auto) , Reticulocyte # (auto) 102.8H, Nucleated Red Blood Cells % (auto) 0.0, Neutrophils 53, Band Neutrophils 9, Lymphocytes (Manual) 27, [place] cytes (Manual) 7H, Myelocytes 1H, Atypical Lymphocytes 3, Anisocytosis 2+, Microcytosis 1+, Macrocytosis 1+, Toxic Granulation 1+, Platelet Estimate INVALID, Clumped Platelets SMALL AMT, Percent Reticulocyte Count 3.9H, Reticulocyte Hemoglobin Equivalent 32.1, Anion Gap 8, Glomerular Filtration Rate 31.8L, Calcium Level 8.0L, Iron Level 15L, Total Iron Binding Capacity 203L, Transferrin % Saturation 7.4L, Ferritin 877H, Total Bilirubin 1.0, Direct Bilirubin 0.3H, Aspartate Amino Transf (AST/SGOT) 11, Alanine Aminotransferase (ALT/SGPT) 16, Alkaline Phosphatase 89, Total Creatine Kinase 21L, Creatine Kinase MB < 1.0, Creatine Kinase MB Relative Index 4.76H, Troponin I < 0.02, Total Protein 6.1L, Albumin 2.8L, Albumin/Globulin Ratio 0.8L, Thyroid Stimulating Hormone (TSH) 5.850H 02/22/21 09:59: Lactic Acid Level 1.1 02/22/21 13:32: Urine Color YELLOW, Urine Appearance HAZY, Urine pH 6.0, Urine Specific Serena 1.013, Urine Protein 1+H, Urine Glucose (UA) 3+H, Urine Ketones NEGATIVE, Urine Blood 3+H, Urine Nitrite POSITIVEH, Urine Bilirubin NEGATIVE, Urine Urobilinogen 0.2, Urine Leukocyte Esterase 3+H, Urine WBC (Auto) 115H, Urine RBC (Auto) 9H, Urine Hyaline Casts (Auto) 0, Urine Bacteria (Auto) 2+H, Urine Squamous Epithelial Cells 0, Urine Mucus (Auto) SMALL, Urine Sperm (Auto) 02/22/21 13:54: Blood Gas Bicarbonate Standard 21.1L, Arterial Blood pH 7.439, Arterial Blood Partial Pressure CO2 29.2L, Arterial Blood Partial Pressure O2 107.8H, Arterial Blood Total CO2 20.2L, Arterial Blood HCO3 19.3L, Arterial Blood Base Excess - 4.1L, Arterial Blood Oxygen Saturation 97.7 02/22/21 14:31: Anion Gap 7L, Glomerular Filtration Rate 38.2L, Calcium Level 7.5L, Total Bilirubin 1.0, Aspartate Amino Transf (AST/SGOT) 13, Alanine Aminotransferase (ALT/SGPT) 16, Alkaline Phosphatase 76, Total Protein 5.3L, Albumin 2.4L, Albumin/Globulin Ratio 0.8L 02/22/21 15:03: Neutrophils (%) (Auto) , Nucleated Red Blood Cells % (auto) 0.0, Neutrophils 47, Band Neutrophils 16H, Lymphocytes (Manual) 16, Monocytes (Manual) 13H, Atypical Lymphocytes 8H, Hypochromasia 1+, Poikilocytosis 1+, Anisocytosis 1+, Toxic Granulation 1+, Platelet Estimate NORMAL, Clumped Platelets SMALL AMT 02/22/21 17:03: Bedside Glucose (Misc Panel) 344H CBC/BMP Laboratory Tests 02/22/21 08:54 02/22/21 14:31 02/22/21 15:03 Microbiology Microbiology 02/22/21 Blood Culture, Received Pending 02/22/21 Blood Culture, Received Pending 02/22/21 Urine Culture, Received Pending 02/22/21 Blood Culture, Received Pending 02/22/21 Respiratory Virus Panel (PCR) (CHIDI) - Final, Complete 02/22/21 Blood Culture, Received Pending Home Medications Scheduled Atorvastatin Calcium (Lipitor) 10 Mg Tablet, 10 MG PO DAILY Gabapentin (Gabapentin) 300 Mg Capsule, 600 MG PO QHS Hydrochlorothiazide (Hydrochlorothiazide) 12.5 Mg Capsule, 12.5 MG PO DAILY Insulin Degludec (Tresiba Flextouch U-100) 100 Unit/1 Ml Insuln.pen, 36 UNIT SC QHS Levofloxacin (Levofloxacin) 500 Mg Tablet, 500 MG PO Q48H PLEASE TAKE ONE, EVERY OTHER DAY FOR 5 DAYS. with meals Levothyroxine Sodium (Synthroid) 125 Mcg Tablet, 125 MCG PO QAM Nitrofurantoin Monohyd/M-Cryst (Nitrofurantoin [place]-Mcr 100 mg) 100 Mg Capsule, 100 MG PO QHS Prochlorperazine Maleate (Prochlorperazine Maleate) 10 Mg Tablet, 1 TAB PO Q6H Scheduled PRN Acetaminophen (Acetaminophen) 325 Mg Tablet, 650 MG PO Q4H PRN for MILD PAIN OR FEVER Diphenhydramine HCl (Benadryl) 25 Mg Capsule, 25 MG PO DAILY PRN for ITCHING Docusate Sodium (Stool Softener) 100 Mg Capsule, 100 MG PO DAILY PRN for CONSTIPATION Loperamide HCl (Loperamide) 2 Mg Capsule, 2 MG PO Q6H PRN for AFTER EACH LOOSE STOOL Methadone HCl (Methadone HCl) 5 Mg Tablet, 5 MG PO QHS PRN for PAIN Nystatin (Nystatin Powder) 15 Gm Powder, 1 DOSE TOP BID PRN for ITCHING APPLY TO ABDOMINAL FOLDS, UNDER BREASTS, AND GROIN AREA Ondansetron (Ondansetron Odt) 8 Mg Tab.rapdis, 8 MG PO Q12H PRN for NAUSEA OR VOMITING TAKE ONE TAB BY MOUTH EVERY 12 HOURS NEEDED FOR NAUSEA OR VOMITING Polyethylene Glycol 3350 (Miralax) 119 Gm Powder, 17 GM PO DAILY PRN for CONSTIPATION dilute in 8 ounces of water or juice Allergies Coded Allergies: aspirin (Verified Allergy, Severe, ANAPHYLAXIS, 01/07/19) Contrast Media (Verified Adverse Reaction, Intermediate, itching for days, 02/16/21) atenolol (Verified Adverse Reaction, Intermediate, NAUSEA AND DIZZINESS, 01/07/19) lisinopril (Verified Adverse Reaction, Intermediate, VERY DIZZY, 01/07/19) A-FIB/CHADSVASC A-FIB History Current/History of A-Fib/PAF?: No Current PO Anticoag Therapy: No Age/Risk Factor Scoring CHADSVASC: CHADSVASC Response (Comments) Value Age Risk Factor Age 65-74 years old 1 Gender Risk Factor Female 1 Hx of CHF No 0 Hx of HTN Yes 1 Hx of Stroke/TIA/or VTE No 0 Hx of Diabetes Yes 1 Hx of Vascular Disease Yes 1 Total 5 Treatment Treatment ordered: NONE Reason Anticoagulant not given: Other Other reason anticoagulant not: pt allergic . history of bleeding on anticoagulants GME ATTESTATION GME ATTESTATION My faculty preceptor for this patient encounter was physically present during the encounter and was fully available. All aspects of the patient interview, examination, medical decision making process, and medical care plan development were reviewed and approved by the faculty preceptor. The faculty preceptor is aware and concurs with the plan as stated in the body of this note and will attest to such by his/her cosignature. Dereje Zhou MD February 22, 2021 17:50
[2021-02-22 20:00] VITALS: BP 155/63
[2021-02-23] VITALS (8 sets, daily range): BP systolic 95–149; BP diastolic 49–66
[2021-02-23] MEDS: NS 1,000 ML IV SCH (02:10)
--- NOTE | 2021-02-23 02:38 | ECGEPIP ---
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
[2021-02-23 05:07] LABS: HEMATOCRIT 24.3 % (36.0-47.0); MEAN CORPUSCULAR HEMOGLOBIN 29.7 pg (27.0-33.0); MEAN CORPUSCULAR HGB CONC 32.9 g/dl (32.0-36.5); MEAN CORPUSCULAR VOLUME 90.3 fl (80.0-96.0); PLATELET COUNT, AUTOMATED 139 10^3/uL (150-450); RED BLOOD COUNT 2.69 10^6/uL (4.00-5.40); WHITE BLOOD COUNT 4.2 10^3/uL (4.0-10.0)
[2021-02-23 05:22] LABS: ANISOCYTOSIS 2+; ATYPICAL LYMPH 4 % (0-5); LYMPHOCYTES 23 % (16-44); MONOCYTES 10 % (0-5); NEUTROPHILS 56 % (28-66); PLATELET ESTIMATE DECREASED (NORMAL); POIKILOCYTOSIS 1+; POLYCHROMASIA 1+
[2021-02-23 05:23] LABS: TOXIC GRANULATION 1+
[2021-02-23 05:30] LABS: CALCIUM LEVEL 6.9 MG/DL (8.8-10.2); CREATININE FOR GFR 1.41 MG/DL (0.55-1.30); GLOMERULAR FILTRATION RATE 39.1 (>39); MAGNESIUM LEVEL 1.3 MG/DL (1.8-2.4); POTASSIUM SERUM 3.4 MEQ/L (3.5-5.1)
[2021-02-23] MEDS: LEVOTHYROXINE 125MCG TABLET (0.125MG) PO SCH (06:03)
[2021-02-23] MEDS ORDERED: POTASSIUM CHLORIDE 10 MEQ SR TABLET PO ONE (07:15)
[2021-02-23] MEDS: HumaLOG INSULIN (NovoLOG) PER UNIT SC SCH ×4 (08:48→20:58)
[2021-02-23] MEDS: MAG SULF 1GM/100ML (MAG RUN) 1 GM in IV 1 EA IV SCH ×3 (08:48→11:48)
[2021-02-23] MEDS: ATORVASTATIN 10 MG TAB PO SCH (08:49)
[2021-02-23] MEDS: cefTRIAXone SOD 2 GM in D5W MINI-BAG PLUS 50 ML IV SCH (13:01)
--- NOTE | 2021-02-23 15:54 | REP ---
INDICATION: sepsis, metastatic rectal cancer COMPARISON: 01/23/2021. TECHNIQUE: CT Scan of the abdomen and pelvis was performed without intravenous contrast. Sagittal and coronal reconstruction images performed. FINDINGS: Lung bases: There are mild bibasilar fibrotic changes. There is a small hiatal hernia. Liver: Prior partial resection. Gallbladder: Prior cholecystectomy. Spleen: Grossly unremarkable. Adrenals: Normal. Pancreas: Grossly unremarkable.. Kidneys: No hydronephrosis or nephrolithiasis. Ureters demonstrate no dilatation or calculus. There is left renal atrophy. Small and large bowel: Grossly unremarkable. Free fluid: None. Abdominal aorta: No aneurysm. Adenopathy: None. Appendix: Not inflamed. Osseous structures: There is a left hip prosthesis. There are degenerative changes of the spine with no compression deformity. Pelvis: There is new mild air in the endometrial cavity along with previously noted fluid. Superimposed infectious process within the endometrial cavity cannot be excluded. Left perirectal soft tissue is unchanged. An IVC filter is present. IMPRESSION: New air possibly indicating an infectious process within the endometrial cavity. Mild fluid in this region as seen on prior studies. Exam is otherwise stable. <Electronically signed by Kt Ramirez > 02/23/21 [id number]
--- NOTE | 2021-02-23 18:09 | IPNPDOC ---
Text Note Date of Service The patient was seen on 02/23/21. NOTE S: Pt states she feels slight improvement since yesterday but still not back to her ususal self like 2 weeks ago. She still feels lightheaded sometimes. Nausea has resolved and no episodes of vomiting since the admission.She still has rectal discharge with some blood in it. However denies any red flag symptoms. As per the nurses, no overnight events. But the pt was hypotensive even after receiving fluids. She continues to be on fluids. O:Pt was sitting in a chair this morning comfortably, in no distress. However still weak. PHYSICAL EXAMINATION: VITAL SIGNS: Temperature 99.8, pulse 79, respiratory rate 18, blood pressure 110/55, pulse oximetry 89 % on room air. GENERAL APPEARANCE: Patient looks alert, cooperative, not in any acute distress. HEENT: Atraumatic, normocephalic, no conjunctival pallor, no scleral icterus, PERRLA, EOMI. CARDIOVASCULAR: S1 and S2 heard, rate and rhythm normal. No murmurs appreciated. LUNGS:. Clear to auscultation bilaterally, no wheezing, rhonchi or crackles heard. ABDOMEN: Non distended, non tender, no organomegaly, no rashes. Patient's colostomy site looked healthy, with no erythema or inflammation noticed around the site no leakage no bleeding no discharge. EXTREMITIES: 1+ pedal edema left lower extremity, good volume pulses , good capillary refill + NEUROLOGICAL: 4/5 motor strength, sensations intact. PSYCHIATRIC:, Normal Motor and affect. 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 Patient states that for the past few weeks she has been having increased weakness especially after her chemotherapy, last dose of chemotherapy was 2 weeks ago.. Patient is being treated with chemotherapy for a metastatic recurrence involving rectal anastomotic site, left pelvic sidewall, pulmonary nodules since October 2020 presents today with weakness resulting in a fall, she fell on the carpet and did not hit her head and doesn't seem to be injured. In the ED patient was found to have a temperature of 100.8 and blood pressure of 69/35 concerning for sepsis . 1.Hypotension-either sepsis from a Source unknown (multiple sources of infection including a recto vaginal fistula) or result of autonomic instability (patient is diabetic, received multiple experimental chemotherapies): -Continuous monitoring of vitals -Patient positive for orthostatics. -Patient will be continued on IV maintenance fluids at a rate of 100 mls per hour. -She has been fluid responsive and her blood pressure came up to 135/61 yesterday but, today she has stayed hypotensive. -Patient continues to be on IV 2 g Rocephin every 24 hours . -Urine analysis -came back positive for bacteria, leukocyte esterase, nitriteswhich is expected in this patient since she has a history of recto vaginal fistula. Source of infection still under suspect. Waiting for urine cultures. -blood cultures 2 -showed no growth after 24 hours.- Ruling out bacteremia. -Chest x-ray was negative. No respiratory symptoms. Have ordered a CT abdomen and pelvis to look for any new metastases especially on the adrenals of the patient and a cortisol level. 2. Chronic anemia(hemoglobin of 7.9) secondary to Chronic GI loss, advanced malignancy, chemotherapy: -Patient -We'll repeat CBC tomorrow. -However patient reports no shortness of breath. 3.. Nausea: -No episodes of vomiting. -Patient is on ondansetron as needed. 4. Chronic kidney disease-creatinine 1.69-slightly higher than baseline creatini ne secondary to chemotherapy: -Patient is being hydrated with IV fluids. -Patient recently received nephrotoxic chemotherapy 2 weeks ago. -Await nephrotoxic medications. 5. Colon cancer metastasized to multiple sites: -Patient continues to be on chemotherapy. -Was due for her next dose today but missed it. 6. Type 2 diabetes mellitus -Patient continued to be on sliding scale insulin with a hypoglycemic protocol in place. -Patient kept on a consistent carb diet. 7.DVT (deep venous thrombosis) Doppler ultrasound showed There is no ultrasonographic evidence of deep venous thrombosis involving any of the visualized deep venous structures of the right thigh The patient was diagnosed with a non occlusive DVT of the left thigh on 07/18/2019. Doppler exam shows increased thrombus formation throughout the left thigh deep venous structures. Patient has 2 episode of PE and DVT in the past Patient has IVC filter placed around 2 years ago. Follow-up with IR as outpatient. 7. Hypothyroidism: -Continue with levothyroxine. 8. Constipation: -Patient put on a when necessary dose of MiraLAX. DVT prophylaxis: Teds and sequentials. Since the patient has a contraindication (GI bleed)to oral anticoagulation has an IVC filter in place. DISPOSITION: Patient will most likely stay for another night before deemed fit for discharge. VS,Fishbone, I+O VS, Fishbone, I+O Laboratory Tests 02/23/21 04:45 Vital Signs Date Time Temp Pulse Resp B/P (MAP) Pulse Ox O2 Delivery O2 Flow Rate FiO2 02/23/21 16:00 98.4 87 20 95 Room Air 02/23/21 16:00 108/50 (69) 101/51 (68) 130/60 (83) I&O- Last 24 Hours up to 6 AM 02/23/21 06:00 Intake Total 3980 ml Balance 3980 ml GME ATTESTATION GME ATTESTATION My faculty preceptor for this patient encounter was physically present during the encounter and was fully available. All aspects of the patient interview, examination, medical decision making process, and medical care plan development were reviewed and approved by the faculty preceptor. The faculty preceptor is aware and concurs with the plan as stated in the body of this note and will attest to such by his/her cosignature. Dereje Zhou MD February 23, 2021 18:09
[2021-02-24] VITALS: BP 157/67
[2021-02-24 04:30] VITALS: BP 134/63
[2021-02-24 04:33] VITALS: BP 134/61
[2021-02-24 04:36] VITALS: BP 124/58
[2021-02-24 04:44] LABS: BASO % 0.5 % (0.0-1.0); EOS # 0.2 10^3/uL (0.0-0.5); EOS % 3.4 % (0.0-3.0); HEMATOCRIT 26.7 % (36.0-47.0); HEMOGLOBIN 8.1 g/dl (12.0-15.5); LYMPH # 0.7 10^3/uL (1.5-5.0); MEAN CORPUSCULAR HGB CONC 30.3 g/dl (32.0-36.5); MEAN CORPUSCULAR VOLUME 98.9 fl (80.0-96.0); MONO # 0.8 10^3/uL (0.0-0.8); MONO % 17.6 % (2.0-8.0); NEUTROPHILS # 2.7 10^3/uL (1.5-8.5); PLATELET COUNT, AUTOMATED 188 10^3/uL (150-450); WHITE BLOOD COUNT 4.4 10^3/uL (4.0-10.0)
[2021-02-24 04:58] LABS: CALCIUM LEVEL 7.3 MG/DL (8.8-10.2); CREATININE FOR GFR 1.14 MG/DL (0.55-1.30); POTASSIUM SERUM 3.6 MEQ/L (3.5-5.1)
[2021-02-24] MEDS: LEVOTHYROXINE 125MCG TABLET (0.125MG) PO SCH (05:42)
[2021-02-24 07:01] LABS: MAGNESIUM LEVEL 2.1 MG/DL (1.8-2.4)
[2021-02-24 07:29] VITALS: BP 153/70
[2021-02-24] MEDS ORDERED: SLF 3 ML SYR IV PRN (08:55)
[2021-02-24] MEDS: ATORVASTATIN 10 MG TAB PO SCH (09:34)
[2021-02-24] MEDS: HumaLOG INSULIN (NovoLOG) PER UNIT SC SCH ×2 (09:34→12:47)
[2021-02-24] MEDS: cefTRIAXone SOD 2 GM in D5W MINI-BAG PLUS 50 ML IV SCH (09:34)
[2021-02-24] MEDS ORDERED: LEVO500T3 PO (11:05)
[2021-02-24] MEDS ORDERED: SLF 3 ML SYR IV SCH (14:00)
== END 2021-02-24 15:10 | disposition home health service (06) | DRG 872 ==
LOC: M ED 08:21 → M ED INP 11:48 → ENRESERVDT 13:54 → ENRESERVTM 13:54 → M PCU 15:48
PROVIDERS: ADMIT Internal Medicine; ATTEND Internal Medicine
PROC: 30233N1 Transfusion of Nonautologous Red Blood Cells into Peripheral Vein, Percutaneous Approach (ICD-10-PCS; principal; 2021-02-22)
DX: A41.9 Sepsis, unspecified organism (principal); C78.00 Secondary malignant neoplasm of unspecified lung; C78.7 Secondary malignant neoplasm of liver and intrahepatic bile duct; C18.9 Malignant neoplasm of colon, unspecified; N82.3 Fistula of vagina to large intestine; N18.9 Chronic kidney disease, unspecified; E11.22 Type 2 diabetes mellitus with diabetic chronic kidney disease; E03.9 Hypothyroidism, unspecified; Z87.891 Personal history of nicotine dependence; Z86.711 Personal history of pulmonary embolism; Z96.642 Presence of left artificial hip joint; D50.0 Iron deficiency anemia secondary to blood loss (chronic); D64.81 Anemia due to antineoplastic chemotherapy; K59.00 Constipation, unspecified; Z79.899 Other long term (current) drug therapy; Z79.4 Long term (current) use of insulin; Z88.6 Allergy status to analgesic agent; Z91.041 Radiographic dye allergy status; Z88.8 Allergy status to other drugs, medicaments and biological substances

== ENCOUNTER 2021-02-26 16:51 | Emergency (ER) | payer MEDICARE ==
[~2021-02-26] VITALS: Ht 157.5 cm; Wt 89.1 kg
[2021-02-26 17:49] LABS: HEMATOCRIT 29.1 % (36.0-47.0); HEMOGLOBIN 9.4 g/dl (12.0-15.5); MEAN CORPUSCULAR HEMOGLOBIN 29.9 pg (27.0-33.0); MEAN CORPUSCULAR HGB CONC 32.3 g/dl (32.0-36.5); MEAN CORPUSCULAR VOLUME 92.7 fl (80.0-96.0); PLATELET COUNT, AUTOMATED 241 10^3/uL (150-450); RED BLOOD COUNT 3.14 10^6/uL (4.00-5.40); WHITE BLOOD COUNT 10.6 10^3/uL (4.0-10.0)
[2021-02-26 18:02] LABS: INR 1.06; PARTIAL THROMBOPLASTIN TIME 26.3 SECONDS (24.2-38.5)
--- NOTE | 2021-02-26 18:12 | REP ---
INDICATION: increased pain LLE, h/o DVT/PEs COMPARISON: 01/26/2021. TECHNIQUE: Real time compression and duplex Doppler interrogation of the left lower extremity deep venous system is performed. FINDINGS: Once again there is diffuse thrombus throughout the left common femoral, superficial femoral and popliteal veins. Prior study showed occlusive thrombus, wall the current study shows nonocclusive thrombus with trickle flow through these venous structures. IMPRESSION: Extensive deep vein thrombosis left common femoral, superficial femoral and popliteal veins, with improvement of the previously noted diffuse occlusive thrombus, now nonocclusive with trickle flow through these veins. <Electronically signed by Kt Ramirez > 02/26/21 [id number]
[2021-02-26 18:18] LABS: CALCIUM LEVEL 8.8 MG/DL (8.8-10.2); CREATININE FOR GFR 1.16 MG/DL (0.55-1.30); POTASSIUM SERUM 4.2 MEQ/L (3.5-5.1)
[2021-02-26 18:31] LABS: EOSINOPHILS 4 % (0-3); LYMPHOCYTES 7 % (16-44); METAMYELOCYTES 1 % (0-0); MONOCYTES 7 % (0-5); NEUTROPHILS 81 % (28-66)
[2021-02-26 18:32] LABS: ANISOCYTOSIS 1+; PLATELET CLUMPS SMALL AMT; PLATELET ESTIMATE NORMAL (NORMAL); TOXIC GRANULATION 1+
[2021-02-26] MEDS ORDERED: METHADONE 5 MG TAB (S0109) PO ONE (20:50)
[2021-02-26 21:59] VITALS: BP 160/74
[2021-03-01] MEDS ORDERED: COVI100V IM (09:39)
[2021-03-01] MEDS ORDERED: METH5TAB3 PO (12:36)
== END 2021-02-26 21:48 | disposition home or self-care (01) ==
LOC: M ED 16:51
DX: I82.512 Chronic embolism and thrombosis of left femoral vein (principal); E03.9 Hypothyroidism, unspecified; E11.9 Type 2 diabetes mellitus without complications; Z79.4 Long term (current) use of insulin; Z79.899 Other long term (current) drug therapy; Z91.041 Radiographic dye allergy status; Z88.8 Allergy status to other drugs, medicaments and biological substances

== ENCOUNTER → 2021-02-26 | Outpatient (REF) | payer MEDICARE ==
[~2021-02-26] MED LIST changes: +LEVO500T3 PO; +MM S100C PO; +SYNT125T PO
[2021-02-27 11:19] LABS: FREE T4 1.22 NG/DL (0.76-1.46); THYROID STIMULATING HORMONE 14.3 uIU/ML (0.358-3.740)
== END ==
LOC: M SFHCCLAY 10:58
PROVIDERS: ATTEND Nurse Practitioner Family
DX: E03.9 Hypothyroidism, unspecified (principal)

== ENCOUNTER → 2021-02-28 | Outpatient (POV) | payer MEDICARE ==
[~2021-02-28] VITALS: Ht 157.5 cm; Wt 89.1 kg
[2021-02-28 13:42] VITALS: BP 139/63
--- NOTE | 2021-03-01 12:41 | IRPN ---
[facility] IR Progress Note IR Progress Note DATE: February 28, 2021 FOLLOW-UP: Patient with acute on chronic left lower extremity DVT, associated with limb swelling and pain. 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 Patient is not a candidate for blood thinning medication or anticoagulation, due to recurrent bleeding related to underlying cancer. Patient repeatedly presents to the ER for ongoing pain. Patient is on methadone for pain. ON EXAMINATION: Left lower extremity now appears symmetrical to right lower extremity, with no increase in left thigh swelling. Tenderness is improved from prior examination. Both legs are normal in color and temperature to touch. IMAGING: I personally reviewed the left lower extremity ultrasound performed 02/26/2021 and compared it to the ultrasound performed in January 2021. There is some re-modulation of thrombus within the left femoral vein and popliteal vein with trickle flow. 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 Patient does have an IVC filter to protect from PE. Patient is not able to be anticoagulated due to underlying bleeding. Patient is not a good candidate for complete common iliac/ external iliac reconstruction with stents, as this would require at least 6 months of aspirin and Plavix and/or Lovenox to ensure stent patency. Patient would benefit from lower extremity exercise and compression therapy. Thank you for this referral. Cc Dr. Lesli Lazaro Allergies Coded Allergies: aspirin (Verified Allergy, Severe, ANAPHYLAXIS, 01/07/19) Contrast Media (Verified Adverse Reaction, Intermediate, itching for days, 02/16/21) atenolol (Verified Adverse Reaction, Intermediate, NAUSEA AND DIZZINESS, 01/07/19) lisinopril (Verified Adverse Reaction, Intermediate, VERY DIZZY, 01/07/19) VS,Fishbone, I+O VS, Fishbone, I+O Vital Signs Date Time Temp Pulse Resp B/P (MAP) Pulse Ox O2 Delivery O2 Flow Rate FiO2 02/28/21 13:42 98.5 76 20 139/63 (88) 96 Room Air ELIZA ARMENDARIZ MD March 01, 2021 12:41
== END ==
LOC: M IRPOV 13:04
PROVIDERS: ATTEND Radiology Diagnostic Radiology
DX: I82.512 Chronic embolism and thrombosis of left femoral vein (principal); I82.532 Chronic embolism and thrombosis of left popliteal vein; I70.92 Chronic total occlusion of artery of the extremities; Z88.6 Allergy status to analgesic agent; Z88.8 Allergy status to other drugs, medicaments and biological substances; Z91.041 Radiographic dye allergy status

== ENCOUNTER 2021-03-07 15:33 | Emergency (ER) | payer MEDICARE ==
[~2021-03-07] VITALS: Ht 157.5 cm; Wt 89.1 kg
[2021-03-07] MEDS ORDERED: SODIUM CHLORIDE 0.9% INJ 10 ML SYR IV PRN (16:55)
[2021-03-07 17:34] LABS: BASO % 0.4 % (0.0-1.0); EOS # 0.1 10^3/uL (0.0-0.5); EOS % 0.9 % (0.0-3.0); HEMATOCRIT 23.3 % (36.0-47.0); HEMOGLOBIN 7.5 g/dl (12.0-15.5); LYMPH # 0.9 10^3/uL (1.5-5.0); LYMPH % 10.5 % (24.0-44.0); MEAN CORPUSCULAR HEMOGLOBIN 29.9 pg (27.0-33.0); MEAN CORPUSCULAR HGB CONC 32.2 g/dl (32.0-36.5); MEAN CORPUSCULAR VOLUME 92.8 fl (80.0-96.0); MONO # 0.9 10^3/uL (0.0-0.8); MONO % 10.8 % (2.0-8.0); NEUTROPHILS # 6.3 10^3/uL (1.5-8.5); NEUTROPHILS % 76.7 % (36.0-66.0); PLATELET COUNT, AUTOMATED 162 10^3/uL (150-450); RED BLOOD COUNT 2.51 10^6/uL (4.00-5.40); WHITE BLOOD COUNT 8.2 10^3/uL (4.0-10.0)
[2021-03-07 17:45] LABS: CALCIUM LEVEL 8.8 MG/DL (8.8-10.2); CREATININE FOR GFR 1.16 MG/DL (0.55-1.30); POTASSIUM SERUM 4.2 MEQ/L (3.5-5.1)
[2021-03-07 19:02] VITALS: BP 143/65
--- NOTE | 2021-03-07 21:40 | ECGEPIP ---
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
== END 2021-03-07 19:02 | disposition home or self-care (01) ==
LOC: M ED 15:33
DX: C20 Malignant neoplasm of rectum (principal); C79.9 Secondary malignant neoplasm of unspecified site; D63.0 Anemia in neoplastic disease; R94.31 Abnormal electrocardiogram [ECG] [EKG]; E11.9 Type 2 diabetes mellitus without complications; N18.30 Chronic kidney disease, stage 3 unspecified; Z79.4 Long term (current) use of insulin; Z79.890 Hormone replacement therapy; Z79.899 Other long term (current) drug therapy; Z98.890 Other specified postprocedural states
CPT/HCPCS: 80048; 85025; 86850; 86900; 86901; 93005; 96374; 99284; J1642

== ENCOUNTER 2021-03-08 13:56 | Outpatient (CLI) | payer MEDICARE ==
[~2021-03-08] VITALS: Ht 157.5 cm; Wt 89.0 kg
[~2021-03-08 13:56] MED LIST changes: +ACETAMINOPHEN TAB 650MG DOSE (2X325MG) PO SCH; +SODIUM CHLORIDE 0.9% INJ 10 ML SYR IV SCH; +diphenhydrAMINE 25MG CAP PO SCH
[2021-03-08] MEDS ORDERED: SODIUM CHLORIDE 0.9% INJ 10 ML SYR IV PRN (14:20)
[2021-03-08 14:45] VITALS: BP 162/72
[2021-03-08] MEDS ORDERED: FUROSEMIDE 20MG/2ML VIAL (J1940) IV ONE (15:00)
[2021-03-08 15:27] VITALS: BP 162/72
[2021-03-08 16:00] VITALS: BP 137/63
[2021-03-08 17:00] VITALS: BP 161/70
[2021-03-08 18:00] VITALS: BP 163/76
== END 2021-03-08 18:00 | disposition home or self-care (01) ==
LOC: M INFU 13:56
PROVIDERS: ATTEND Internal Medicine Medical Oncology
DX: D64.9 Anemia, unspecified (principal); Z88.6 Allergy status to analgesic agent; Z91.041 Radiographic dye allergy status
CPT/HCPCS: 36430; 36591; 86850; 86900; 86901; 86920; 96374; J1642; J1940; P9016

== ENCOUNTER → 2021-03-17 | Outpatient (CLI) | payer MEDICARE ==
[~2021-03-17] MED LIST changes: -ACETAMINOPHEN TAB 650MG DOSE (2X325MG) PO SCH; -SODIUM CHLORIDE 0.9% INJ 10 ML SYR IV SCH; -diphenhydrAMINE 25MG CAP PO SCH
--- NOTE | 2021-03-20 10:19 | ECHO ---
ECHOCARDIOGRAM DATE OF PROCEDURE: 03/17/2021 Age: Gender: Height: 157 cm Weight: 87 kg REFERRING PHYSICIAN: Dr. Lesli Lazaro. INDICATION: Chemotherapy that may affect the heart; carcinoma. MEASUREMENTS: 2D Measurements: Interventricular septum 1.09 cm Posterior wall 0.98 cm Left ventricle diastole 4.5 cm Aortic root 3.2 cm Left atrium 3.8 cm Inferior vena cava 1.6 cm (normal respiratory variation) Doppler Measurements: No aortic stenosis No aortic regurgitation LVOT velocity 121 cm/s No mitral regurgitation Mitral E velocity 120 cm/s Mitral A velocity 113 cm/s Mitral deceleration time 229 msec No tricuspid regurgitation No pulmonic regurgitation MITRAL ANNULAR TISSUE DOPPLER E prime lateral 10.4 cm/s, E prime septal 9.6 cm/s DESCRIPTION: Rhythm was sinus. This was a moderately technically difficult echocardiogram. CONCLUSIONS: 1. Normal left ventricle internal dimensions and wall thickness. Normal regional LV wall motion and wall thickening. Normal LV systolic function. LVEF 70-75% by visual estimate. Normal LV diastolic function. 2. Mild left atrial dilatation. 3. Mild aortic valve sclerosis of a 3-cusp aortic valve. No aortic regurgitation. 4. Mild mitral annular calcification. No mitral regurgitation. 5. Very small circumferential pericardial effusion which measured maximal 0.9 cm over the lateral wall of the left ventricle. No diastolic chamber collapse. No significant respiration variation of intracardiac velocities. MTDD
== END ==
LOC: M CARPUL 08:59
PROVIDERS: ATTEND Internal Medicine Medical Oncology
DX: Z51.11 Encounter for antineoplastic chemotherapy (principal); C18.9 Malignant neoplasm of colon, unspecified

== ENCOUNTER 2021-03-23 10:29 | Inpatient (IN) | payer MEDICARE ==
[~2021-03-23] VITALS: Ht 157.5 cm; Wt 91.7 kg
[~2021-03-23 10:29] MED LIST changes: +AMOX875T2 PO
[2021-03-23] MEDS ORDERED: HYDR-3713 PO (10:42)
[2021-03-23] MEDS ORDERED: VANCOMYCIN HCL 1,750 MG in NS 250 ML IV ONE (11:05)
[2021-03-23] MEDS ORDERED: VANCOMYCIN HCL 1,000 MG, VIAL MATE ADAPTER 1 EACH in NS 250 ML IV ONE (11:30)
[2021-03-23 11:52] LABS: BASO % 0.3 % (0.0-1.0); EOS # 0.1 10^3/uL (0.0-0.5); EOS % 1.8 % (0.0-3.0); HEMATOCRIT 27.7 % (36.0-47.0); HEMOGLOBIN 8.9 g/dl (12.0-15.5); LYMPH # 0.6 10^3/uL (1.5-5.0); LYMPH % 7.6 % (24.0-44.0); MEAN CORPUSCULAR HEMOGLOBIN 29.3 pg (27.0-33.0); MEAN CORPUSCULAR HGB CONC 32.1 g/dl (32.0-36.5); MEAN CORPUSCULAR VOLUME 91.1 fl (80.0-96.0); MONO # 0.6 10^3/uL (0.0-0.8); MONO % 7.4 % (2.0-8.0); NEUTROPHILS # 6.6 10^3/uL (1.5-8.5); NEUTROPHILS % 82.5 % (36.0-66.0); PLATELET COUNT, AUTOMATED 184 10^3/uL (150-450); RED BLOOD COUNT 3.04 10^6/uL (4.00-5.40)
[2021-03-23 12:06] LABS: INR 1.06
[2021-03-23 12:07] LABS: PARTIAL THROMBOPLASTIN TIME 37.3 SECONDS (24.2-38.5)
--- NOTE | 2021-03-23 12:09 | REP ---
INDICATION: wound ?FB/osteo COMPARISON: None. TECHNIQUE: Four views left foot. FINDINGS: There is no evidence of acute fracture, dislocation, or intrinsic bone disease.Scattered vascular calcifications are seen in the soft tissues. There is a large inferior calcaneal spur. There is mild narrowing at the 1st metatarsophalangeal joint. There is mild diffuse narrowing of interphalangeal joints. No radiopaque foreign body is seen in the soft tissues. IMPRESSION: No fracture or dislocation. No evidence of osseous destruction. Degenerative changes as above. No radiopaque foreign body seen in the soft tissues. <Electronically signed by Kt Ramirez > 03/23/21 [id number]
[2021-03-23] MEDS ORDERED: VIAL MATE ADAPTER XX ONE (12:14)
[2021-03-23 12:17] LABS: RSV AMPLIFICATION NEGATIVE (NEGATIVE)
[2021-03-23 12:21] LABS: ALBUMIN 2.6 GM/DL (3.2-5.2); BILIRUBIN,DIRECT 0.2 MG/DL (0.0-0.2); BILIRUBIN,TOTAL 0.6 MG/DL (0.2-1.0); C REACTIVE PROTEIN QUANTITATIV 6.47 MG/DL (0.00-0.30); CALCIUM LEVEL 7.9 MG/DL (8.8-10.2); CREATININE FOR GFR 1.15 MG/DL (0.55-1.30); GLOMERULAR FILTRATION RATE 49.5 (>39); POTASSIUM SERUM 4.4 MEQ/L (3.5-5.1); TOTAL PROTEIN 6.3 GM/DL (6.4-8.2)
[2021-03-23] MEDS ORDERED: VANCOMYCIN HCL 750 MG, VIAL MATE ADAPTER 1 EACH in NS 250 ML IV ONE (12:30)
[2021-03-23 12:38] LABS: ERYTHROCYTE SEDIMENTATION RATE 126 mm/hr (0-30)
[2021-03-23] MEDS ORDERED: PROC5TAB57 PO (12:45)
[2021-03-23] MEDS ORDERED: METH5TA PO (12:45)
[2021-03-23] MEDS ORDERED: ACET32TAB PO (12:45)
[2021-03-23] MEDS ORDERED: NORCO, ANEXSIA 5/325MG TABLET (HYDROcodone/ACETAMINOPHEN) PO ONE (13:35)
[2021-03-23] MEDS ORDERED: MOM 30ML SUSPENSION UDC PO PRN (14:20)
[2021-03-23] MEDS ORDERED: ACETAMINOPHEN TAB 650MG DOSE (2X325MG) PO PRN (14:20)
[2021-03-23] MEDS ORDERED: MAALOX 30 ML SUSP *UDC PO PRN (14:20)
[2021-03-23] MEDS ORDERED: GLUCOSE 4GM CHEW TABLET PO PRN (14:25)
[2021-03-23] MEDS ORDERED: DEXTROSE 50% 50 ML SYRINGE IV PRN (14:25)
[2021-03-23] MEDS ORDERED: GLUCAGON INJ 1MG VIAL SC PRN (14:25)
--- NOTE | 2021-03-23 15:05 | HPEPDOC ---
[facility] Medical History & Physical Date of Admission Mar 23, 2021 Date of Service: Mar 23, 2021 History and Physical CHIEF COMPLAINT: L heel draining wound, erythema HISTORY OF PRESENT ILLNESS: 70-year-old female with a past medical history metastatic colon cancer to liver and lung, rectovaginal fistula, PE, DVT, left hip fracture, type 2 diabetes, hypothyroidism, presenting to the ER complaining of left heel wound with erythema, pain and drainage. Patient was seen in her PCP clinic 2 days ago, started on by mouth Augmentin. She returned to her primary care doctor this morning with worsening drainage, pain and generalized malaise was referred to the ER. Patient had a pending referral to Dr. Olivares's office appointment on 03/24/21. Patient is being followed by Dr. Lazaro and is currently seeking opinion with oncology at [facility]. She further reports discharge from rectal stump, of which Dr. Lazaro is aware, with concern for disease recurrence. Last chemotherapy was administered on 02/08/21, had 6th cycle planned on 03/22/21, but due to worsening infection of L heel, being delayed by a week. She has been getting regular blood transfusions for persistent anemia. Per Dr. Lazaro note, workup showed no iron deficiency, no hemolysis and normal SPEP. She also reports a history of prior DVTs, but is unable to take anticoagulation. She has had an IVC filter placed in 2018. Patient was afebrile. Hypertensive to 1 8691 on her on arrival. No leukocytosis. Anemic at 11.9. Elevated ESR 126. CRP 6.47. Lactic acid 1.3. Fasting glucose 195. Patient was given IV vancomycin in the ER. Will be admitted to hospitalist service for management of left leg cellulitis secondary to purulent left heel wound. PAST MEDICAL HISTORY: -Colon cancer in 1999 for resected, recurrence again in 2013 resected, it radiated, chemotherapy 2 times, liver resection - Metastatic rectal carcinoma with liver, lung involvement with pelvic recurrence including malignant rectovaginal fistula - malignant rectovaginal fistula, diagnosed February 2019 s/p diverting colostomy - DM2 - Hypothyroidism. -pulmonary embolism in 2016 after liver resection - LLE DVT perioperative in 07/2019 in setting of L hemiarthroplasty for L femoral neck fracture - LLE DVT diagnosed in 01/2021 -left hydronephrosis with progressive renal insufficiency PAST SURGICAL HISTORY: IVC filter Colon cancer resection [id number] tonsillectomy. solitary liver metastasis status post metastasectomy with Dr. Obed Dunbar, followed by FOLFIRI/panitumumab January-June 2016 left IVC port placement in July 2019 L hip hemiarthroplasty July 2019. Diverting colostomy in February 2019 urethral reimplantationDr. Solitario in 03/05/2018 left urethral stent removal 12/24/2017. SOCIAL HISTORY: Patient denies smoking Seldom alcohol use Patient denies illicit drug use FAMILY HISTORY: Father: at 68 years, history of hypertension, diabetes mellitus, ang elijah, cause of ACS. Mother: at 70 years, history of hypertension, strokewhich was the cause of . Children: Son has a history of kidney diseasepassed away. Other 2 sons are well Hereditary Diseases: None ALLERGIES: Please see below. REVIEW OF SYSTEMS: 10 point ROS was completed, relevant findings are noted in HPI. HOME MEDICATIONS: Please see below. PHYSICAL EXAMINATION: VITAL SIGNS: please see below General: NAD, comfortable HEENT: PERRLA, EOMI, sclerae clear Neck: supple, normal ROM, no JVD Respiratory: lungs CTAB, no wheeze, no rales, no crackles CVS: RRR, normal S1, S2, no murmurs Abdo: soft, no masses, no hepatosplenomegaly, BS+, no rebound tenderness Extremities: Left heel ulcer with drainage approximately 3 cm x 2 cm. surrounding cellulitis. MSK: no joint deformities, normal ROM Neuro: no focal neuro deficits, moving all 4 extremities, CN2-12 intact. Stren gth 5/5 in all 4 extremities. No nystagmus. Psych: calm, cooperative, AAO x 3 LABORATORY DATA: See below. IMAGING: L foot XR, complete: IMPRESSION: No fracture or dislocation. No evidence of osseous destruction. Degenerative changes as above. No radiopaque foreign body seen in the soft tissues. MICROBIOLOGY: Please see below. ASSESSMENT: 70-year-old female with a past medical history metastatic colon cancer to liver and lung, rectovaginal fistula, PE, DVT, left hip fracture, type 2 diabetes, hypothyroidism, presenting to the ER complaining of left heel wound with erythema, pain and drainage. . PLAN: L heel cellulitis upon a Stage 2 pressure ulcer - elevated ESR/CRP. No fever, no leukocytosis - continue vancomycin - MRSA screen. Wound culture ordered. Blood culture pending - wound care consult with Dr. Elise quiñones. - Podiatry consult with Dr. Wilkinson placed - trend CBC, inflammatory markers daily Metastatic rectal disease with seeding into liver, lung, as well pelvic involvement with malignant rectovaginal fistual and invasion into vaginal space - frequent episodes of bleeding, requiring support blood transfusions - follows with Dr. Lazaro - patient states that current chemotherapy regimen is palliative Chronic anemia - in setting of mestastatic disease - reviewed records from heme onc, last seen 03/22/21 - priro workup for DANTE negative - will give transfusions as needed, maintain Hgb > 8. - Hgb on admission LLE DVT - acute on chronic, seen on US on 02/26/21, diagnosed in 02/01 - reviewed notes from Dr. 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 - recommended LLE xercise and compression therapy DM2 with neuropathy - FSBS AC and HS, ISS - resume home levemir 36 units qhs - check a1c RLE Pain - per patient, was seen in [facility] 2 days ago, ruled out DVT - will obtain records Hypothyroid - resume levothyroxine pain control in setting of malignancy - methadone - oxycodone prn DVT ppx: SCDs. TEDs. Dispo: pending clinical improvement. Vital Signs Vital Signs Date Time Temp Pulse Resp B/P (MAP) Pulse Ox O2 Delivery O2 Flow Rate FiO2 03/23/21 13:36 18 Room Air 03/23/21 11:40 03/23/21 10:30 98.2 72 100 Laboratory Data Labs 24H Laboratory Tests 2 03/23/21 11:11: Immature Granulocyte % (Auto) 0.4, Neutrophils (%) (Auto) 82.5H, Lymphocytes (%) (Auto) 7.6L, Monocytes (%) (Auto) 7.4, Eosinophils (%) (Auto) 1.8, Basophils (%) (Auto) 0.3, Neutrophils # (Auto) 6.6, Lymphocytes # (Auto) 0.6L, Monocytes # (Auto) 0.6, Eosinophils # (Auto) 0.1, Basophils # (Auto) 0.0, Nucleated Red Blood Cells % (auto) 0.0, Erythrocyte Sedimentation Rate 126H, Prothrombin Time 14.0, Prothromb Time International Ratio 1.06, Activated Partial Thromboplast Time 37.3, Anion Gap 4L, Glomerular Filtration Rate 49.5, Lactic Acid Level 1.3, Calcium Level 7.9L, Total Bilirubin 0.6, Direct Bilirubin 0.2, Aspartate Amino Transf (AST/SGOT) 10, Alanine Aminotransferase (ALT/SGPT) 15, Alkaline Phosphatase 70, C-Reactive Protein, Quantitative 6.47H, Total Protein 6.3L, Albumin 2.6L, Albumin/Globulin Ratio 0.7L 03/23/21 11:18: Coronavirus (COVID-19)(PCR) NEGATIVE, Influenza Type A (RT-PCR) NEGATIVE, Influenza Type B (RT-PCR) NEGATIVE, Respiratory Syncytial Virus (PCR) NEGATIVE CBC/BMP Laboratory Tests 03/23/21 11:11 Microbiology Microbiology 03/23/21 Blood Culture, Received Pending 03/23/21 Blood Culture, Received Pending Home Medications Scheduled Amoxicillin/Potassium Clav (Amox-Clav 875-125 mg Tablet) 1 Each Tablet, 1 TAB PO BID Atorvastatin Calcium (Lipitor) 10 Mg Tablet, 10 MG PO DAILY Gabapentin (Gabapentin) 300 Mg Capsule, 600 MG PO QHS Insulin Degludec (Tresiba Flextouch U-100) 100 Unit/1 Ml Insuln.pen, 36 UNIT SC QHS Levothyroxine Sodium (Synthroid) 125 Mcg Tablet, 125 MCG PO QAM Methadone HCl (Methadone HCl) 5 Mg Tablet, 5 MG PO BID Scheduled PRN Acetaminophen (Acetaminophen) 325 Mg Tablet, 650 MG PO Q4H PRN for PAIN Docusate Sodium (Stool Softener) 100 Mg Capsule, 100 MG PO DAILY PRN for CONSTIPATION Hydrocodone/Acetaminophen (Hydrocodone-Acetamin 5-325 mg) 1 Each Tablet, 1 TAB PO Q4H PRN for PAIN Loperamide HCl (Loperamide) 2 Mg Capsule, 2 MG PO Q6H PRN for AFTER EACH LOOSE STOOL Prochlorperazine (Prochlorperazine Maleate) 5 Mg Tablet, 5 MG PO Q6H PRN for NAUSEA OR VOMITING Allergies Coded Allergies: aspirin (Verified Allergy, Severe, ANAPHYLAXIS, 01/07/19) Contrast Media (Verified Adverse Reaction, Intermediate, itching for days, 02/16/21) atenolol (Verified Adverse Reaction, Intermediate, NAUSEA AND DIZZINESS, 01/07/19) lisinopril (Verified Adverse Reaction, Intermediate, VERY DIZZY, 01/07/19) GAYATHRI GARNER MD Mar 23, 2021 15:05
[2021-03-23] MEDS ORDERED: LEVEMIR (INSULIN DETEMIR) 1 UNITS/0.01ML SC ONE (15:10)
--- NOTE | 2021-03-23 17:25 | REP ---
INDICATION: please include ZARA COMPARISON: None. TECHNIQUE: Bilateral lower extremity arterial ultrasound with Doppler was obtained FINDINGS: The ankle brachial index was unobtainable bilaterally as per the technologist worksheet. All numeric values represent peak systolic velocities in cm per SEC. On the right: ELECTROMYOGRAPHIC TECHNICIAN: 156 triphasic Profunda: 98 triphasic SFA proximal: 124 triphasic SFA Mid: 129 triphasic SFA distal: 101 triphasic Popliteal: 138 triphasic VIELKA proximal: 71 biphasic Tibioperoneal trunk: 137 triphasic [employer] proximal: 65 triphasic [employer] distal: 113 monophasic VIELKA distal: 114 triphasic On the left: ELECTROMYOGRAPHIC TECHNICIAN: 143 biphasic Profunda: 79 biphasic SFA proximal: 121 triphasic SFA Mid: 136 triphasic SFA distal: 130 triphasic Popliteal: 135 triphasic/biphasic VIELKA proximal: 104 biphasic Tibioperoneal trunk: Not seen [employer] proximal: 52 monophasic [employer] distal: 97 monophasic VIELKA distal: 132 monophasic On the right mild plaque formation was seen from the common femoral artery to the ankle with triphasic and biphasic waveforms throughout. Monophasic waveform was seen only in the posterior tibial artery distally. No significant stenosis was identified. On the left mild plaque was seen from the common femoral artery to the ankle with both triphasic and biphasic waveforms throughout. Ankle brachial indices were not obtainable due to noncompressibility. IMPRESSION: As above <Electronically signed by Samir Sandoval > 03/23/21 [id number]
[2021-03-23] MEDS: NORCO, ANEXSIA 5/325MG TABLET (HYDROcodone/ACETAMINOPHEN) PO PRN (18:35)
[2021-03-23 19:00] VITALS: BP 155/71
[2021-03-23] MEDS: HumaLOG INSULIN (NovoLOG) PER UNIT SC SCH ×2 (20:10→22:48)
[2021-03-23 22:00] VITALS: BP 158/58
[2021-03-23] MEDS: HEPARIN SOD (PORCINE) 5000UNITS/ML 1ML VIAL/SYRINGE SC SCH (22:00)
[2021-03-23] MEDS: GABAPENTIN 300 MG CAP PO SCH (22:48)
[2021-03-23] MEDS: DOCUSATE SODIUM 100MG CAPSULE PO SCH (22:48)
[2021-03-23] MEDS: METHADONE 5 MG TAB (S0109) PO SCH (22:48)
[2021-03-24] MEDS: NORCO, ANEXSIA 5/325MG TABLET (HYDROcodone/ACETAMINOPHEN) PO PRN ×2 (05:36→13:55)
[2021-03-24] MEDS: LEVOTHYROXINE 125MCG TABLET (0.125MG) PO SCH (05:36)
[2021-03-24] MEDS: HEPARIN SOD (PORCINE) 5000UNITS/ML 1ML VIAL/SYRINGE SC SCH ×3 (05:37→20:47)
[2021-03-24 05:52] LABS: BASO % 0.5 % (0.0-1.0); EOS # 0.2 10^3/uL (0.0-0.5); EOS % 3.1 % (0.0-3.0); HEMATOCRIT 27.4 % (36.0-47.0); HEMOGLOBIN 8.6 g/dl (12.0-15.5); LYMPH # 0.9 10^3/uL (1.5-5.0); LYMPH % 13.6 % (24.0-44.0); MEAN CORPUSCULAR HEMOGLOBIN 28.3 pg (27.0-33.0); MEAN CORPUSCULAR HGB CONC 31.4 g/dl (32.0-36.5); MEAN CORPUSCULAR VOLUME 90.1 fl (80.0-96.0); MONO # 0.6 10^3/uL (0.0-0.8); MONO % 8.6 % (2.0-8.0); NEUTROPHILS # 4.8 10^3/uL (1.5-8.5); NEUTROPHILS % 73.3 % (36.0-66.0); PLATELET COUNT, AUTOMATED 184 10^3/uL (150-450); RED BLOOD COUNT 3.04 10^6/uL (4.00-5.40); WHITE BLOOD COUNT 6.5 10^3/uL (4.0-10.0)
[2021-03-24 06:00] VITALS: BP 160/82
[2021-03-24 06:20] LABS: ALBUMIN 2.4 GM/DL (3.2-5.2); BILIRUBIN,TOTAL 0.6 MG/DL (0.2-1.0); C REACTIVE PROTEIN QUANTITATIV 6.09 MG/DL (0.00-0.30); CALCIUM LEVEL 8.1 MG/DL (8.8-10.2); CREATININE FOR GFR 1.14 MG/DL (0.55-1.30); MAGNESIUM LEVEL 1.9 MG/DL (1.8-2.4); POTASSIUM SERUM 4.3 MEQ/L (3.5-5.1)
[2021-03-24 06:26] LABS: ERYTHROCYTE SEDIMENTATION RATE 109 mm/hr (0-30)
[2021-03-24] MEDS: HumaLOG INSULIN (NovoLOG) PER UNIT SC SCH ×4 (07:30→20:54)
[2021-03-24] MEDS: METHADONE 5 MG TAB (S0109) PO SCH ×2 (09:17→20:54)
[2021-03-24] MEDS: DOCUSATE SODIUM 100MG CAPSULE PO SCH ×2 (09:17→20:47)
[2021-03-24] MEDS: VANCOMYCIN HCL 1,000 MG, VIAL MATE ADAPTER 1 EACH in NS 250 ML IV SCH (09:17)
--- NOTE | 2021-03-24 10:47 | CR ---
CONSULTATION DATE: 03/23/2021 REASON FOR CONSULTATION: Heel ulcer. Elisabeth Yang is a 70-year-old female who was admitted through the emergency room (ER) with worsening of condition of her left heel. She believes she started with the wound about 2 weeks ago. She was seen by her primary doctor and started on Augmentin, but wound worsened, and she was sent to ER for further workup. MEDICAL HISTORY: Significant for: 1. Colon cancer. 2. Metastatic rectal carcinoma. 3. Malignant rectovaginal fistula. 4. Diabetes. 5. Hypothyroidism. 6. History of pulmonary embolism. 7. History of left lower extremity deep venous thromboses (DVTs). 8. Left hydronephrosis. SURGICAL HISTORY: Includes: 1. Inferior vena cava (IVC) filter. 2. Colon cancer resection. 3. Tonsillectomy. 4. Liver metastasis status post metastasectomy. 5. Left IVC port. 6. Left hip hemiarthroplasty. 7. Diverting colostomy. 8. Urethral reimplantation. 9. Urethral stent. SOCIAL HISTORY: Denies smoking. Denies consistent alcohol use. ALLERGIES: Contrast media, ASPIRIN, ATENOLOL, and LISINOPRIL. REVIEW OF SYSTEMS: She denies nausea, vomiting, fever, or chills. VITAL SIGNS: Patient is afebrile. LABORATORY DATA: White blood cell count is 8. ESR is 126. CRP 6.47. X-ray findings show no signs of osteomyelitis or soft tissue emphysema. LOWER EXTREMITY EXAMINATION: Pedal pulses are palpable. There is a wound on the left posterolateral aspect of the heel with overlying blister and deep tissue injury. There is no sinus or overt purulent drainage to suggest abscess. ASSESSMENT: A 70-year-old female with left heel ulceration. TREATMENT: Excision wound debridement was performed using dermal curette including subcutaneous tissue to the left heel. Wound care orders for Vashe and Hydrofera Blue dressings. Foam heel boot should be applied while she is in bed. A wound care consultation with Dr. Olivares has already been placed. Will follow. She will ultimately require further debridement but will allow some time for the dressing changes to help demarcate wound. Depending on progression, may be performed outpatient.
--- NOTE | 2021-03-24 13:03 | IPNPDOC ---
Date Seen The patient was seen on 03/24/21. Progress Note SUBJECTIVE: Patient is a -year-old [RACE] [GENDER] with OBJECTIVE PHYSICAL EXAMINATION: General: NAD, comfortable HEENT: PERRLA, EOMI, sclerae clear Neck: supple, normal ROM, no JVD Respiratory: lungs CTAB, no wheeze, no rales, no crackles CVS: RRR, normal S1, S2, no murmurs Abdo: soft, no masses, no hepatosplenomegaly, BS+, no rebound tenderness Extremities: Left heel ulcer with drainage approximately 3 cm x 2 cm. mild erythema surrounding MSK: no joint deformities, normal ROM Neuro: no focal neuro deficits, moving all 4 extremities, CN2-12 intact. Strength 5/5 in all 4 extremities. No nystagmus. Psych: calm, cooperative, AAO x 3 LABORATORY DATA, IMAGING STUDIES, MICROBIOLOGY: Please see below. DVT prophylaxis ordered?: SCDs. TEDs. ASSESSMENT AND PLAN: 70-year-old female with a past medical history metastatic colon cancer to liver and lung, rectovaginal fistula, PE, DVT, left hip fracture, type 2 diabetes, hypothyroidism, presenting to the ER complaining of left heel wound with erythema, pain and drainage. . PLAN: PROBLEMS: L heel cellulitis upon a Stage 2 pressure ulcer - elevated ESR/CRP. No fever, no leukocytosis - continue vancomycin - MRSA screen. Wound culture ordered. Blood culture pending - wound care consult with Dr. Olivares placed - belives not to be infected, pressure injury. C/w heel float, vashe for 15 min and hydrophera blue with dressing changed every other day - Podiatry consult with Dr. Wilkinson placed - performed debridemen, may need to revisit, possibly outpatient depending on clinical course. - will DC vancomycin based on wound care recs, and absence of WBC elevation and fever. - trend CBC, inflammatory markers daily Metastatic rectal disease with seeding into liver, lung, as well pelvic involvement with malignant rectovaginal fistual and invasion into vaginal space - frequent episodes of bleeding, requiring support blood transfusions - follows with Dr. Lazaro - patient states that current chemotherapy regimen is palliative Chronic anemia - in setting of mestastatic disease - reviewed records from heme onc, last seen 03/22/21 - priro workup for DANTE negative - will give transfusions as needed, maintain Hgb > 8. - Hgb on admission 8.9, stable. LLE DVT - acute on chronic, seen on US on 02/26/21, diagnosed in 02/01 - reviewed notes from Dr. 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 - recommended LLE exercise and compression therapy DM2 with neuropathy - FSBS AC and HS, ISS - resume home levemir 36 units qhs - A1c 7.0. RLE Pain - per patient, was seen in [facility] 2 days ago, ruled out DVT - has known DVT in LLE. Unable to receive AC. - will obtain records Hypothyroid - resume levothyroxine pain control in setting of malignancy - methadone - oxycodone prn DVT ppx: SCDs. TEDs. Dispo: pending clinical improvement. VS, I&O, 24H, Fishbone Vital Signs/I&O Vital Signs Date Time Temp Pulse Resp B/P (MAP) Pulse Ox O2 Delivery O2 Flow Rate FiO2 03/24/21 06:06 16 Room Air 03/24/21 06:00 96.9 73 160/82 (108) 98 I&O- Last 24 Hours up to 6 AM 03/24/21 06:00 Intake Total 785 ml Output Total 350 ml Balance 435 ml Laboratory Data 24H LABS Laboratory Tests 2 03/23/21 18:33: Bedside Glucose (Misc Panel) 169H 03/23/21 20:18: Bedside Glucose (Misc Panel) 197H 03/24/21 05:09: Immature Granulocyte % (Auto) 0.9, Neutrophils (%) (Auto) 73.3H, Lymphocytes (%) (Auto) 13.6L, Monocytes (%) (Auto) 8.6H, Eosinophils (%) (Auto) 3.1H, Basophils (%) (Auto) 0.5, Neutrophils # (Auto) 4.8, Lymphocytes # (Auto) 0.9L, Monocytes # (Auto) 0.6, Eosinophils # (Auto) 0.2, Basophils # (Auto) 0.0, Nucleated Red Blood Cells % (auto) 0.0, Erythrocyte Sedimentation Rate 109H, Anion Gap 6L, Glomerular Filtration Rate 50.0, Estimated Mean Plasma Glucose 154H, Hemoglobin A1c 7.0, Calcium Level 8.1L, Magnesium Level 1.9, Total Bilirubin 0.6, Aspartate Amino Transf (AST/SGOT) 10, Alanine Aminotransferase (ALT/SGPT) 13, Alkaline Phosphatase 64, C-Reactive Protein, Quantitative 6.09H, Total Protein 6.0L, Albumin 2.4L, Albumin/Globulin Ratio 0.7L 03/24/21 11:43: Bedside Glucose (Misc Panel) 162H CBC/BMP Laboratory Tests 03/24/21 05:09 Microbiology Microbiology 03/23/21 Gram Stain, Received Pending 03/23/21 Wound Culture, Received Pending 03/23/21 Blood Culture - Preliminary, Resulted No growth after 24 hours . All specim... 03/23/21 Blood Culture - Preliminary, Resulted No growth after 24 hours . All specim... GAYATHRI GARNER MD Mar 24, 2021 13:03
[2021-03-24] MEDS ORDERED: SODIUM CHLORIDE 0.9% INJ 10 ML SYR IV PRN (13:35)
[2021-03-24 14:00] VITALS: BP 150/69
--- NOTE | 2021-03-24 18:10 | CR ---
ADVANCED WOUND CARE CONSULTATION VIA TELEMEDICINE DATE: 03/24/2021 CONSULTATION REQUESTED BY: Omi Mahmood M.D. REASON FOR CONSULTATION: Wound care treatment for left heel wound. Wound care telemedicine provides a visual assessment of a wound without the benefit of physical examination. It can assist with establishing a diagnosis and etiology. This allows for an initial treatment plan. As wounds often change, it may be necessary to modify the original care. Our recommendation is periodic wound reassessment to monitor treatment. Failure to comply may result in nonhealing of the wound, possible complications and/or poor outcome. The recommendations given will serve as treatment options. As I will not be following this patient, this care plan will require the attending physician to give and sign the orders. Upon discharge, outpatient followup can be scheduled at our wound care center. Patient identified. Verbal consent obtained. HISTORY OF PRESENT ILLNESS: This is a 70-year-old diabetic female, hemoglobin A1C 7.1, admitted for a left heel wound. Patient indicated this started as a skin fissure, small break in the skin, presumably from a very dry, calloused heels. This then progressed to an open wound. She saw her family physician, who started her on an oral antibiotic, reevaluated it and, as the wound did not improve and increased in size, she recommended that the patient be hospitalized. Her past medical history is significant for a previous left hip fracture which developed an associated deep venous thrombosis of the left lower extremity and, as the patient has colonic vaginal fistula, anticoagulation became problematic with bleeding and therefore was discontinued and a vena cava filter was inserted. Patient has not had any problem since with deep venous thromboses (DVTs) or active bleeding. She does have a colostomy, and that was the treatment recommendation for her colonic vaginal fistula. In terms of her wound, her left heel shows a 4.0 cm x 2.0 cm wound with a depth of less than 0.1 cm. The differential diagnosis here is deep tissue injury versus an unstageable pressure injury. This is difficult to discern on Telemedicine; however, the treatment is similar. Offloading with a heel float boot is mandatory. The wound has been recently debrided by podiatry and Hydrofera Blue foam has been utilized as a cover dressing. This wound can also be cleaned with Vashe wound cleanser. Dressing changes on an every other day basis. No indication for antibiotic therapy, as this is a colonized wound and there is no sign of cellulitis. An arterial ultrasound of the left lower extremity is indicated if not already ordered. Appropriate footwear is also required, as poor fitting shoes can traumatize the area. When patient is ready for discharge, if she so desires, please arrange for followup at our advanced wound care center. ZULY
[2021-03-24] MEDS: GABAPENTIN 300 MG CAP PO SCH (20:54)
[2021-03-24 22:00] VITALS: BP 151/72
[2021-03-25] MEDS: HEPARIN SOD (PORCINE) 5000UNITS/ML 1ML VIAL/SYRINGE SC SCH (03:14)
[2021-03-25] MEDS: LEVOTHYROXINE 125MCG TABLET (0.125MG) PO SCH (05:14)
[2021-03-25] MEDS: NORCO, ANEXSIA 5/325MG TABLET (HYDROcodone/ACETAMINOPHEN) PO PRN ×2 (05:36→12:57)
[2021-03-25 06:00] VITALS: BP 157/74
[2021-03-25 07:43] LABS: BASO % 0.5 % (0.0-1.0); EOS # 0.2 10^3/uL (0.0-0.5); EOS % 2.9 % (0.0-3.0); HEMATOCRIT 28.2 % (36.0-47.0); LYMPH # 0.7 10^3/uL (1.5-5.0); LYMPH % 10.8 % (24.0-44.0); MEAN CORPUSCULAR HGB CONC 31.9 g/dl (32.0-36.5); MONO # 0.6 10^3/uL (0.0-0.8); MONO % 9.2 % (2.0-8.0); NEUTROPHILS # 4.7 10^3/uL (1.5-8.5); NEUTROPHILS % 76.1 % (36.0-66.0); PLATELET COUNT, AUTOMATED 186 10^3/uL (150-450); WHITE BLOOD COUNT 6.2 10^3/uL (4.0-10.0)
[2021-03-25 08:08] LABS: ALBUMIN 2.5 GM/DL (3.2-5.2); BILIRUBIN,TOTAL 0.5 MG/DL (0.2-1.0); C REACTIVE PROTEIN QUANTITATIV 5.07 MG/DL (0.00-0.30); CALCIUM LEVEL 8.2 MG/DL (8.8-10.2); CREATININE FOR GFR 1.03 MG/DL (0.55-1.30); ERYTHROCYTE SEDIMENTATION RATE 129 mm/hr (0-30); GLOMERULAR FILTRATION RATE 56.2 (>39); MAGNESIUM LEVEL 1.9 MG/DL (1.8-2.4); POTASSIUM SERUM 4.2 MEQ/L (3.5-5.1); TOTAL PROTEIN 6.2 GM/DL (6.4-8.2)
[2021-03-25] MEDS: HumaLOG INSULIN (NovoLOG) PER UNIT SC SCH ×2 (08:23→12:10)
[2021-03-25] MEDS: DOCUSATE SODIUM 100MG CAPSULE PO SCH ×2 (08:23→08:34)
[2021-03-25] MEDS: VANCOMYCIN HCL 1,000 MG, VIAL MATE ADAPTER 1 EACH in NS 250 ML IV SCH (08:24)
[2021-03-25] MEDS: METHADONE 5 MG TAB (S0109) PO SCH (08:33)
[2021-03-25] MEDS ORDERED: SODIUM CHLORIDE 0.9% INJ 10 ML SYR IV SCH (09:00)
[2021-03-25] MEDS ORDERED: ACET1TAB55 PO (11:01)
[2021-03-25] MEDS ORDERED: DOXY-350 PO (11:01)
[2021-03-25] MEDS ORDERED: AMLO1TAB24 PO (11:03)
--- NOTE | 2021-03-25 11:07 | DS.PDOC ---
Discharge Summary General Date of Admission Mar 23, 2021 at 14:17 Date of Discharge 03/25/21 Discharge Summary PROCEDURES PERFORMED DURING STAY: [None]. COMPLICATIONS/CHIEF COMPLAINT: Cellulitis. HISTORY OF PRESENT ILLNESS: 70-year-old female with a past medical history metastatic colon cancer to liver and lung, rectovaginal fistula, PE, DVT, left hip fracture, type 2 diabetes, hypothyroidism, presenting to the ER complaining of left heel wound with erythema, pain and drainage. Patient was seen in her PCP clinic 2 days ago, started on by mouth Augmentin. She returned to her primary care doctor this morning with worsening drainage, pain and generalized malaise was referred to the ER. Patient had a pending referral to Dr. Olivares's office appointment on 03/24/21. Patient is being followed by Dr. Lazaro and is currently seeking opinion with oncology at [facility]. She further reports discharge from rectal stump, of which Dr. Lazaro is aware, with concern for disease recurrence. Last chemotherapy was administered on 02/08/21, had 6th cycle planned on 03/22/21, but due to worsening infection of L heel, being delayed by a week. She has been getting regular blood transfusions for persistent anemia. Per Dr. Lazaro note, workup showed no iron deficiency, no hemolysis and normal SPEP. She also reports a history of prior DVTs, but is unable to take anticoagulation. She has had an IVC filter placed in 2019. Patient was afebrile. Hypertensive to 1 [phone] on her on arrival. No leukocytosis. Anemic at 11.9. Elevated ESR 126. CRP 6.47. Lactic acid 1.3. Fasting glucose 195. Patient was given IV vancomycin in the ER. Will be admitted to hospitalist service for management of left leg cellulitis secondary to purulent left heel wound. HOSPITAL COURSE: L heel cellulitis upon a Stage 2 pressure ulcer - elevated ESR/CRP. No fever, no leukocytosis - continue vancomycin - MRSA screen. Wound culture ordered. Blood culture pending - wound care consult with Dr. Olivares placed - belives not to be infected, pressure injury. C/w heel float, vashe for 15 min and hydrophera blue with dressing changed every other day - Podiatry consult with Dr. Wilkinson placed - performed debridemen, will outpatient depending on clinical course. - Dr. Olivares recommended to DC abx in absence of WBC elevation and fever. Per Dr. Wilkinson, significant erythema at wound prior to debridement. Concern for infection - DC with course of doxycycline Metastatic rectal disease with seeding into liver, lung, as well pelvic involvement with malignant rectovaginal fistual and invasion into vaginal space - frequent episodes of bleeding, requiring support blood transfusions - follows with Dr. Lazaro - patient states that current chemotherapy regimen is palliative Chronic anemia - in setting of mestastatic disease - reviewed records from heme onc, last seen 03/22/21 - priro workup for DANTE negative - will give transfusions as needed, maintain Hgb > 8. - Hgb remained stable LLE DVT - acute on chronic, seen on US on 02/26/21, diagnosed in 02/01 - reviewed notes from Dr. 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 - recommended LLE exercise and compression therapy DM2 with neuropathy - FSBS AC and HS, ISS - resume home levemir 36 units qhs - A1c 7.0. RLE Pain - per patient, was seen in [facility] 2 days ago, ruled out DVT - has known DVT in LLE. Unable to receive AC. Hypothyroid - resume levothyroxine pain control in setting of malignancy - resumed home regimen - methadone - oxycodone prn DISCHARGE MEDICATIONS: Please see below. ALLERGIES: Please see below. PHYSICAL EXAMINATION ON DISCHARGE: VITAL SIGNS: Please see below. General: NAD, comfortable HEENT: PERRLA, EOMI, sclerae clear Neck: supple, normal ROM, no JVD Respiratory: lungs CTAB, no wheeze, no rales, no crackles CVS: RRR, normal S1, S2, no murmurs Abdo: soft, no masses, no hepatosplenomegaly, BS+, no rebound tenderness Extremities: Left heel ulcer without drainage now clean margins approximately 3 cm x 4 cm. MSK: no joint deformities, normal ROM Neuro: no focal neuro deficits, moving all 4 extremities, CN2-12 intact. Strength 5/5 in all 4 extremities. No nystagmus. Psych: calm, cooperative, AAO x 3 LABORATORY DATA: Please see below. IMAGING: XR L foot (03/23/21): No fracture or dislocation. No evidence of osseous destruction. Degenerative changes as above. No radiopaque foreign body seen in the soft tissues PROGNOSIS: good ACTIVITY: [As tolerated]. DIET: consistent carbohydrate DISCHARGE PLAN: DC home. F/u with Dr. Wilkinson and Dr. Oilvares in 1 week. F/u PCP 3-5 days. F/u oncology 1-2 weeks. Wound care recs for dressing changes. Provided wound care instructions on DC. Complete 7 days of doxycycline. DISPOSITION: DC home DISCHARGE INSTRUCTIONS: 1. F/u with PCP. 2. F/u with podiatry and wound care. 3. F/u with oncology. 4. Complete 7 day course of doxycycline. ITEMS TO FOLLOWUP ON ON OUTPATIENT: Final blood and wound cultures DISCHARGE CONDITION: [Stable]. TIME SPENT ON DISCHARGE: 35 minutes Vital Signs/I&Os Vital Signs Date Time Temp Pulse Resp B/P (MAP) Pulse Ox O2 Delivery O2 Flow Rate FiO2 03/25/21 06:06 16 03/25/21 06:00 97.7 67 157/74 (101) 98 Room Air I&O- Last 24 Hours up to 6 AM 03/25/21 06:00 Intake Total 1420 ml Output Total 725 ml Balance 695 ml Laboratory Data Labs 24H Laboratory Tests 2 03/24/21 11:43: Bedside Glucose (Misc Panel) 162H 03/24/21 16:43: Bedside Glucose (Misc Panel) 132H 03/24/21 20:53: Bedside Glucose (Misc Panel) 185H 03/25/21 07:09: Immature Granulocyte % (Auto) 0.5, Neutrophils (%) (Auto) 76.1H, Lymphocytes (%) (Auto) 10.8L, Monocytes (%) (Auto) 9.2H, Eosinophils (%) (Auto) 2.9, Basophils (%) (Auto) 0.5, Neutrophils # (Auto) 4.7, Lymphocytes # (Auto) 0.7L, Monocytes # (Auto) 0.6, Eosinophils # (Auto) 0.2, Basophils # (Auto) 0.0, Nucleated Red Blood Cells % (auto) 0.0, Erythrocyte Sedimentation Rate 129H, Anion Gap 5L, Glomerular Filtration Rate 56.2, Calcium Level 8.2L, Magnesium Level 1.9, Total Bilirubin 0.5, Aspartate Amino Transf (AST/SGOT) 5L, Alanine Aminotransferase (ALT/SGPT) 12, Alkaline Phosphatase 69, C-Reactive Protein, Quantitative 5.07H, Total Protein 6.2L, Albumin 2.5L, Albumin/Globulin Ratio 0.7L, Vancomycin Level Trough 12.9 CBC/BMP Laboratory Tests 03/25/21 07:09 FSBS Laboratory Tests Test 03/24/21 11:43 03/24/21 16:43 03/24/21 20:53 Range/Units Bedside Glucose (Misc Panel) 162 132 185 83-110 MG/DL Microbiology Microbiology 03/23/21 Gram Stain - Final, Resulted 03/23/21 Wound Culture, Resulted Pending 03/23/21 Blood Culture - Preliminary, Resulted No growth after 24 hours . All specim... 03/23/21 Blood Culture - Preliminary, Resulted No growth after 24 hours . All specim... Discharge Medications Scheduled Amlodipine Besylate (Amlodipine Besylate) 5 Mg Tablet, 1 TAB PO DAILY Atorvastatin Calcium (Lipitor) 10 Mg Tablet, 10 MG PO DAILY, (Reported) Doxycycline Monohydrate (Doxycycline) 100 Mg Capsule, 1 CAP PO BID Gabapentin (Gabapentin) 300 Mg Capsule, 600 MG PO QHS, (Reported) Insulin Degludec (Tresiba Flextouch U-100) 100 Unit/1 Ml Insuln.pen, 36 UNIT SC QHS, (Reported) Levothyroxine Sodium (Synthroid) 125 Mcg Tablet, 125 MCG PO QAM, (Reported) Methadone HCl (Methadone HCl) 5 Mg Tablet, 5 MG PO BID, (Reported) Scheduled PRN Acetaminophen (Acetaminophen) 325 Mg Tablet, 650 MG PO Q4H PRN for PAIN, (Reported) Acetaminophen (Acetaminophen) 325 Mg Tablet, 650 MG PO Q4H PRN for MILD PAIN OR FEVER Docusate Sodium (Stool Softener) 100 Mg Capsule, 100 MG PO DAILY PRN for CONSTIPATION, (Reported) Hydrocodone/Acetaminophen (Hydrocodone-Acetamin 5-325 mg) 1 Each Tablet, 1 TAB PO Q4H PRN for PAIN, (Reported) Loperamide HCl (Loperamide) 2 Mg Capsule, 2 MG PO Q6H PRN for AFTER EACH LOOSE STOOL, (Reported) Prochlorperazine (Prochlorperazine Maleate) 5 Mg Tablet, 5 MG PO Q6H PRN for NAUSEA OR VOMITING, (Reported) Allergies Coded Allergies: aspirin (Verified Allergy, Severe, ANAPHYLAXIS, 01/07/19) Contrast Media (Verified Adverse Reaction, Intermediate, itching for days, 02/16/21) atenolol (Verified Adverse Reaction, Intermediate, NAUSEA AND DIZZINESS, 01/07/19) lisinopril (Verified Adverse Reaction, Intermediate, VERY DIZZY, 01/07/19) GAYATHRI GARNER MD Mar 25, 2021 11:07
== END 2021-03-25 14:25 | disposition home health service (06) | DRG 580 ==
LOC: M ED 10:29 → M ED INP 14:17 → ENRESERV 17:48 → M MSPAV 18:49
PROVIDERS: ADMIT Family Medicine; ATTEND Family Medicine
PROC: 0JBR3ZZ Excision of Left Foot Subcutaneous Tissue and Fascia, Percutaneous Approach (ICD-10-PCS; principal; 2021-03-23)
DX: L89.622 Pressure ulcer of left heel, stage 2 (principal); C20 Malignant neoplasm of rectum; C78.7 Secondary malignant neoplasm of liver and intrahepatic bile duct; C79.89 Secondary malignant neoplasm of other specified sites; L03.116 Cellulitis of left lower limb; N82.3 Fistula of vagina to large intestine; I82.402 Acute embolism and thrombosis of unspecified deep veins of left lower extremity; C78.00 Secondary malignant neoplasm of unspecified lung; D63.0 Anemia in neoplastic disease; E11.40 Type 2 diabetes mellitus with diabetic neuropathy, unspecified; E11.621 Type 2 diabetes mellitus with foot ulcer; Z86.711 Personal history of pulmonary embolism; G89.3 Neoplasm related pain (acute) (chronic); Z95.828 Presence of other vascular implants and grafts; Z90.49 Acquired absence of other specified parts of digestive tract; Z93.3 Colostomy status; Z20.822 Contact with and (suspected) exposure to COVID-19; Z79.4 Long term (current) use of insulin; Z79.899 Other long term (current) drug therapy; Z91.041 Radiographic dye allergy status; Z88.8 Allergy status to other drugs, medicaments and biological substances

== ENCOUNTER → 2021-05-02 | Outpatient (CLI) | payer MEDICARE ==
[~2021-05-02] MED LIST changes: +ACET32TAB PO; +AMLO1TAB24 PO; +DOXY-350 PO; +HYDR-3713 PO; -OXYC1TAB15 PO; +OXYC7.5T3 PO; +PROC5TAB57 PO; +READI-CAT 2 As Ordered ONE
--- NOTE | 2021-05-02 16:29 | REP ---
INDICATION: RECTAL CA FOLLOW UP, ORAL CONTRAST ONLY. COMPARISON: Comparison chest CT study February 14, 2021.. TECHNIQUE: Helical scanning is acquired. 3 mm axial images are generated. Coronal and sagittal MPR and coronal MIP images are generated. FINDINGS: There is a new 5 mm nodule in the right lower lobe on page 68 of 123 in series 204 of today's study. There are other small pleural based nodules which are unchanged. Today's study does not show any other new pulmonary nodule. I cannot see the 5 mm nodule referenced above in the right lower lobe on either the February 14, 2021 or the October 24, 2020 prior study. There is a small pericardial effusion which is a new finding from the comparison study of February 14, 2021. A small cyst is seen in the left lobe of the liver. There is left coronary artery vascular calcification. No adrenal lesion is observed. No hilar or mediastinal mass is observed. No new infiltrate is seen. No bony destructive lesion is appreciated. A left-sided [id number] catheter is noted as before. IMPRESSION: There is a single new noncalcified pulmonary nodule in the right lower lobe. There is a small to moderate pericardial effusion which is a new finding. <Electronically signed by Cm Omalley > 05/02/21 [id number]
--- NOTE | 2021-05-02 16:38 | REP ---
INDICATION: RECTAL CA FOLLOW UP. COMPARISON: Comparison CT study abdomen and pelvis February 23, 2021.. TECHNIQUE: Helical scanning is acquired and 3 mm axial images re-formatted. Coronal and sagittal MPR images are generated. Oral contrast was administered. IV contrast is not administered. FINDINGS: There is no evidence of pleural effusion. Pericardial effusion is seen as described on the chest CT. There is a 1.5 cm stable low-density lesion in the left lobe of the liver consistent with a cyst. There is a tiny 3-4 mm focal low-density lesion in the posterior segment of the right lobe unchanged from the prior study also consistent with a cyst. No new liver mass lesion is seen. The spleen is homogeneous in texture unchanged in size. Normal adrenal glands are observed bilaterally. No abnormality is noted in the the pancreas. There is some fatty involution of the pancreas is specially in the pancreatic head and body. The gallbladder is surgically absent. There is fairly advanced atrophy of the left kidney with mild left-sided hydronephrosis. This is unchanged. An IVC filter is noted in place below the renal veins in the vena cava. No retroperitoneal mass or adenopathy is seen. No mesenteric mass or adenopathy is observed. There are injection sites visible in the subcutaneous fat of the anterior abdominal wall. A left mid abdominal enterostomy is seen consistent with diverting colostomy. There is a necrotic area containing air and some fluid with a thickened wall in the perirectal fat anteriorly and to the left of the rectum. This it cannot be from the lateral pelvic sidewall or from the lower uterine segment wall posteriorly and there is air and fluid in the endometrium again noted consistent with a a recto uterine fistula. This necrotic soft tissue process in the perirectal fat appears a little thicker than on the February 23, 2021 study, 4.1 cm in oblique anteroposterior dimension today versus is 3.3 cm by my measurement previously. No new mass is seen. No adenopathy is appreciated. There is no evidence of free air. No bony destructive changes are appreciated. IMPRESSION: An air-fluid level persists in the uterine endometrium and a necrotic mass persists in the pelvis inseparable from the anterior wall the rectum and the posterior wall the uterus. Findings suggestive of rectal uterine fistula. <Electronically signed by Cm Omalley > 05/02/21 [id number]
== END ==
LOC: M RAD 12:25
PROVIDERS: ATTEND Internal Medicine Medical Oncology
DX: C20 Malignant neoplasm of rectum (principal); R91.8 Other nonspecific abnormal finding of lung field

== ENCOUNTER → 2021-05-11 | Outpatient (CLI) | payer MEDICARE ==
[~2021-05-11] MED LIST changes: -READI-CAT 2 As Ordered ONE
--- NOTE | 2021-05-11 20:58 | ECHO ---
ECHOCARDIOGRAM DATE OF PROCEDURE: 05/11/2021 Age: 70 Gender: Female Height: 62 inches Weight: 196 pounds Body surface area: 1.89 m2 PATIENT LOCATION: Outpatient. REFERRING PHYSICIAN: Lesli Lazaro M.D. INDICATION: Potentially cardiotoxic chemotherapy. MEASUREMENTS: 2D Measurements: RV - 3.1 cm LV - 4.0 cm Septum 1.1 cm Posterior wall 1.1 cm Aortic root 3.0 cm LA - 3.4 cm LVEF 75% Doppler Measurements: AV - 1.21 m/sec LVOT - 0.85 m/sec LVOT diameter 1.7 cm MV-E 81, A 91, EA ratio 0.9 Early mitral deceleration time 298 msec E prime medial 6.3 A prime medial 7.1 E prime lateral 6 Average E/E ratio 13.2/PCWP 18.2 mmHg PV - 0.8 m/sec Pulmonary artery acceleration time 30 msec PASP 24 mmHg IVC - 1.2 cm COMMENTS: Normal sinus rhythm without intraventricular conduction disturbance. M-mode and 2-dimensional echocardiography was performed with pulse, continuous wave, color flow and tissue Doppler studies. Normal left ventricular size and wall thickness with hyperkinetic wall motion. Normal left atrial size with grade 1 left ventricular (LV) diastolic dysfunction and current estimated mean left atrial pressure upper limits of normal to borderline increase. Normal right heart chamber sizes and motion with currently normal Doppler assessment of pulmonary arterial pressure. Inferior vena cava (IVC) size was actually reduced with complete respiratory collapse suggestive of a slightly low central venous pressure. Normal aortic dimensions. Mild aortic valvular sclerosis without functional abnormality. Mild mitral annular calcification, but normal leaflet thickness and excursion with no posterior systolic buckling. No apparent functional abnormality. Normal appearing tricuspid valve with trace (physiologic) insufficiency. No apparent intracardiac mass. Small pericardial effusion measuring 2 mm anteriorly, 5 mm posteriorly and 5 mm laterally. No sign of cardiac chamber compression or respiratory variation to flow signals to suggest cardiac tamponade.
== END ==
LOC: M CARPUL 09:51
PROVIDERS: ATTEND Internal Medicine Medical Oncology
DX: C18.9 Malignant neoplasm of colon, unspecified (principal)

== ENCOUNTER → 2021-05-19 | Outpatient (REF) | payer MEDICARE ==
[~2021-05-19] MED LIST changes: +DOK1CAP4 PO; -DOK1CAP7 PO; +METH-1175 PO; -METH5TAB3 PO
[2021-05-19 17:11] LABS: APPEARANCE, URINE CLOUDY (CLEAR); BACTERIA, URINE AUTO NEGATIVE (NEGATIVE); BILIRUBIN, URINE AUTO NEGATIVE (NEGATIVE); BLOOD, URINE BLOOD 1+ (NEGATIVE); COLOR, URINE YELLOW (YELLOW); GLUCOSE, URINE (UA) AUTO NEGATIVE (NEGATIVE); KETONE, URINE AUTO NEGATIVE (NEGATIVE); LEUKOCYTE ESTERASE, URINE AUTO 3+ (NEGATIVE); MUCUS, URINE SMALL (NEGATIVE); NITRITE, URINE AUTO POSITIVE (NEGATIVE); PROTEIN, URINE AUTO 1+ mg/dL (NEGATIVE); RBC, URINE AUTO 6 /HPF (0-3); SPECIFIC GRAVITY URINE AUTO 1.009 (1.002-1.035); SQUAMOUS EPITHELIAL CELL UR AU 0 /HPF (0-6); UROBILINOGEN, URINE AUTO 0.2 mg/dL (0.0-2.0); WBC, URINE AUTO TNTC /HPF (0-3)
== END ==
LOC: M SMT 16:57
PROVIDERS: ATTEND Nurse Practitioner Women's Health
DX: R82.90 Unspecified abnormal findings in urine (principal)
CPT/HCPCS: 51702; 81001; 87088; 87186; G0463

== ENCOUNTER 2021-05-24 10:28 | Outpatient (CLI) | payer MEDICARE ==
[~2021-05-24] VITALS: Ht 157.5 cm; Wt 89.0 kg
[2021-05-24] VITALS (9 sets, daily range): BP systolic 100–165; BP diastolic 54–77
[2021-05-24] MEDS ORDERED: diphenhydrAMINE 25MG CAP PO ONE (11:05)
[2021-05-24] MEDS ORDERED: ACETAMINOPHEN TAB 650MG DOSE (2X325MG) PO ONE (11:05)
[2021-05-24] MEDS ORDERED: SODIUM CHLORIDE 0.9% INJ 10 ML SYR IV PRN (11:15)
[2021-05-24] MEDS ORDERED: FUROSEMIDE 20MG/2ML VIAL (J1940) IV ONE (14:00)
[2021-05-25] MEDS ORDERED: SODIUM CHLORIDE 0.9% INJ 10 ML SYR IV SCH (09:00)
== END 2021-05-24 16:05 | disposition home or self-care (01) ==
LOC: M INFU 10:28
PROVIDERS: ATTEND Internal Medicine Medical Oncology
DX: C18.9 Malignant neoplasm of colon, unspecified (principal); Z88.6 Allergy status to analgesic agent; Z91.041 Radiographic dye allergy status
CPT/HCPCS: 36430; 36591; 85025; 86850; 86900; 86901; 86920; 96523; J1642; J1940; P9016

== ENCOUNTER → 2021-05-25 | Outpatient (CLI) | payer MEDICARE ==
[~2021-05-25] MED LIST changes: +LIDOCAINE 1% MDV 20ML VIAL As Ordered ONE; +SODIUM BICARBONATE 8.4% INJ 50MEQ 50 ML VIAL As Ordered ONE
[2021-05-25 10:44] LABS: HEMATOCRIT 29.3 % (36.0-47.0); MEAN CORPUSCULAR HEMOGLOBIN 30.6 pg (27.0-33.0); MEAN CORPUSCULAR HGB CONC 33.8 g/dl (32.0-36.5); MEAN CORPUSCULAR VOLUME 90.4 fl (80.0-96.0); PLATELET COUNT, AUTOMATED 190 10^3/uL (150-450); RED BLOOD COUNT 3.24 10^6/uL (4.00-5.40); WHITE BLOOD COUNT 11.8 10^3/uL (4.0-10.0)
[2021-05-25 10:57] LABS: HEMOGLOBIN 9.9 g/dl (12.0-15.5)
[2021-05-25 11:00] VITALS: BP 126/63
--- NOTE | 2021-05-25 13:31 | REP ---
INDICATION: ANEMIA. COMPARISON: None. TECHNIQUE: The procedure is performed by Vickie Slater [facility], under the direct supervision of Dr. Omalley. The risks and benefits of the procedure were explained to the patient and informed consent was obtained both orally and written. Directly prior to the start of the procedure, a formal timeout was done in the exam room. The right iliac crest was localized using CT guidance. Skin was prepped and draped in the usual sterile fashion. Seventeen ml of buffered lidocaine was used as a local anesthetic. FINDINGS: Using CT guidance an 11 gauge bone biopsy system was inserted. Approximately 8 mL of marrow fluid was obtained, as well as 1 core of bone. Patient tolerated the procedure well and there were no immediate complications. After the appropriate amount of monitored convalescence the patient was discharged from the department. IMPRESSION: CT-guided bone marrow aspiration and core bone biopsy. <Electronically signed by Vickie Slater > 05/25/21 1121 <Electronically signed by Cm Omalley > 05/25/21 1324
== END ==
LOC: M IRPRO 07:48
PROVIDERS: ATTEND Internal Medicine Medical Oncology
DX: D64.9 Anemia, unspecified (principal); C20 Malignant neoplasm of rectum; C78.7 Secondary malignant neoplasm of liver and intrahepatic bile duct

== ENCOUNTER → 2021-05-30 | Outpatient (POV) | payer MEDICARE ==
[~2021-05-30] VITALS: Ht 157.5 cm; Wt 84.5 kg
[~2021-05-30] MED LIST changes: -LIDOCAINE 1% MDV 20ML VIAL As Ordered ONE; -SODIUM BICARBONATE 8.4% INJ 50MEQ 50 ML VIAL As Ordered ONE
[2021-05-30 12:55] VITALS: BP 138/70
--- NOTE | 2021-06-01 10:37 | IRPN ---
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 Patient does have an IVC filter in place to protect from PE. Given patient's inability to be on antiplatelet and anticoagulation therapy, further venous reconstruction and stent placement in the left iliac vein is futile. The stents would require long-term anti-platelet and anticoagulation therapy for patency. Patient does wear compression stockings and she was previously encouraged to ambulate and elevate her legs. She reports she saw vascular surgery in [place], they also could not offer any further intervention. However she does have a pneumatic compression device that she uses 3 or 4 times a day at home. ON EXAMINATION: Today her left lower extremity appears remarkably less swollen than before. Her ankle is now visible and palpable. IMPRESSION: Patient with chronic left lower extremity DVT and known chronic tot al occlusion of the left iliac venous drainage from the left lower extremity. Patient has contraindication to antiplatelet and anticoagulant therapy due to bleeding. Therefore aggressive attempts at venous reconstruction of the left iliac vein are felt to be futile, as venous reconstruction and stent placement, will require long-term antiplatelet anticoagulation therapy for stent patency. The patient is encouraged to continue wearing left lower extremity compression and ambulate and elevate as able. Cc Dr. Olivares Allergies Coded Allergies: aspirin (Verified Allergy, Severe, ANAPHYLAXIS, 01/07/19) Contrast Media (Verified Adverse Reaction, Intermediate, itching for days, 02/16/21) atenolol (Verified Adverse Reaction, Intermediate, NAUSEA AND DIZZINESS, 01/07/19) lisinopril (Verified Adverse Reaction, Intermediate, VERY DIZZY, 01/07/19) VS,Fishbone, I+O VS, Fishbone, I+O Vital Signs Date Time Temp Pulse Resp B/P (MAP) Pulse Ox O2 Delivery O2 Flow Rate FiO2 05/30/21 12:55 97.6 80 18 138/70 (92) 97 Room Air ELIZA ARMENDARIZ MD Jun 01, 2021 10:37
== END ==
LOC: M IRPOV 12:46
PROVIDERS: ATTEND Radiology Diagnostic Radiology
DX: I82.522 Chronic embolism and thrombosis of left iliac vein (principal); Z79.82 Long term (current) use of aspirin; Z86.718 Personal history of other venous thrombosis and embolism; Z88.8 Allergy status to other drugs, medicaments and biological substances; Z91.041 Radiographic dye allergy status

== ENCOUNTER → 2021-06-14 | Outpatient (CLI) | payer MEDICARE ==
[~2021-06-14] MED LIST changes: +LONS0.27 PO; +LORA1TAB4 PO; +PROHANCE 279.3MG/ML 15ML VIAL As Ordered ONE
--- NOTE | 2021-06-14 13:48 | REPVR ---
PROCEDURE INFORMATION: Exam: MR Head Without and With Contrast Exam date and time: 06/14/2021 9:21 AM Age: 70 years old Clinical indication: Dizziness; Additional info: Colon CA with dizziness TECHNIQUE: Imaging protocol: MR of the head without and with intravenous contrast. Contrast material: PROHANCE; Contrast volume: 9 ml; Contrast route: INTRAVENOUS (IV); COMPARISON: CT Head without contrast 07/18/2019 4:45 PM FINDINGS: Brain: There is no extra-axial collection or intra-axial mass. Mild diffuse volume loss is within the range of normal for patient age. There are minimal foci of T2/FLAIR white matter hyperintensity, nonspecific but typically small-vessel ischemia in this age group. There is no diffusion restriction. There is no abnormal enhancement within the brain. Cerebral ventricles: Normal. No ventriculomegaly. Bones/joints: Unremarkable. Paranasal sinuses: Normal as visualized. No acute sinusitis. Mastoid air cells: Normal as visualized. No mastoid effusion. Orbital cavity: Unremarkable. Soft tissues: Unremarkable. IMPRESSION: No acute intracranial abnormality. Electronically signed by: Lupe Perkins On 06/14/2021 13:48:15 PM
== END ==
LOC: M RAD 07:26
PROVIDERS: ATTEND Internal Medicine Medical Oncology
DX: C18.9 Malignant neoplasm of colon, unspecified (principal)
CPT/HCPCS: 70553; A9576

== ENCOUNTER 2021-06-23 14:17 | Outpatient (CLI) | payer MEDICARE ==
[~2021-06-23] VITALS: Ht 157.5 cm; Wt 89.0 kg
[~2021-06-23 14:17] MED LIST changes: +ACETAMINOPHEN TAB 650MG DOSE (2X325MG) PO SCH; -PROHANCE 279.3MG/ML 15ML VIAL As Ordered ONE; +diphenhydrAMINE 25MG CAP PO SCH
[2021-06-23 16:13] VITALS: BP 148/68
[2021-06-23 16:30] VITALS: BP 155/68
[2021-06-23] MEDS ORDERED: SODIUM CHLORIDE 0.9% INJ 10 ML SYR IV PRN (18:00)
[2021-06-23 18:15] VITALS: BP 173/83
[2021-06-24] MEDS ORDERED: SODIUM CHLORIDE 0.9% INJ 10 ML SYR IV SCH (09:00)
== END 2021-06-23 18:15 | disposition home or self-care (01) ==
LOC: M INFU 14:17
PROVIDERS: ATTEND Internal Medicine Medical Oncology
DX: D64.9 Anemia, unspecified (principal); Z88.6 Allergy status to analgesic agent
CPT/HCPCS: 36430; 86850; 86900; 86901; 86920; J1642; P9016

== ENCOUNTER → 2021-07-24 | Outpatient (REF) | payer MEDICARE ==
[~2021-07-24] MED LIST changes: -ACETAMINOPHEN TAB 650MG DOSE (2X325MG) PO SCH; +MORP15TA2 PO; -diphenhydrAMINE 25MG CAP PO SCH
[2021-07-24 18:25] LABS: BACTERIA, URINE AUTO 1+ (NEGATIVE); MUCUS, URINE SMALL (NEGATIVE); RBC, URINE AUTO 53 /HPF (0-3); SQUAMOUS EPITHELIAL CELL UR AU 1 /HPF (0-6); WBC, URINE AUTO TNTC /HPF (0-3)
== END ==
LOC: M SMT 16:57
PROVIDERS: ATTEND Specialist
DX: N13.5 Crossing vessel and stricture of ureter without hydronephrosis (principal)
CPT/HCPCS: 81015; 87086; G0463

== ENCOUNTER → 2021-07-27 | Outpatient (REF) | payer MEDICARE ==
[2021-07-27 14:04] LABS: BACTERIA, URINE AUTO NEGATIVE (NEGATIVE); MUCUS, URINE SMALL (NEGATIVE); RBC, URINE AUTO 1 /HPF (0-3); SQUAMOUS EPITHELIAL CELL UR AU 0 /HPF (0-6); WBC, URINE AUTO TNTC /HPF (0-3)
== END ==
LOC: M SMT 12:56
PROVIDERS: ATTEND Specialist
DX: R82.90 Unspecified abnormal findings in urine (principal)

== ENCOUNTER 2021-07-28 03:36 | Emergency (ER) | payer MEDICARE ==
[~2021-07-28] VITALS: Ht 157.5 cm; Wt 112.3 kg
[2021-07-28] MEDS ORDERED: SODIUM BICARBONATE 8.4% INJ 50 ML SYRINGE ONE (03:37)
[2021-07-28] MEDS ORDERED: EPINEPHrine 1MG/10ML SYRINGE 1.5IN ONE (03:37)
--- OUTSIDE RECORDS SUMMARY | 2021-07-28 03:40 | CCD ---
Author Author [facility] Organization [facility] Address Unknown Phone Unavailable Care Team Providers Care Roll Tender Name Role Phone Jessika Young Unavailable PROBLEMS Type Condition ICD9-CM Code [id number] Code Onset Dates Condition S tatus W/U Status Risk SNOMED Code Notes Problem Hypothyroidism, unspecified type E03.9 Active conf irmed 13085642 Problem Lipid screening Z13.220 Active confirmed 243 388677 Problem Anemia, unspecified type D64.9 Active confirmed 854895878 Problem Acquired hypothyroidism E03.9 Active confirmed 873573211 Problem Morbid obesity, unspecified obesity type E66.01 Active confirmed 484880018 Problem Hydronephrosis N13.30 Active confirmed 42496 006 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 Active conf irmed 377131822 Problem 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 Active confirmed 41 0878466 Problem 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 Active confirmed 06800583 Problem 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 Active confirmed 3 06894592 Problem Type 2 diabetes mellitus wit h complication, without long-term current use of insulin E11.8 Active confirmed 29004192 Problem Personal history of pulmonary embolism Z86.711 A ctive confirmed 689230295 Problem Postop check Z09 Active confirmed 0896262 07 Problem Preop testing Z01.818 Active confirmed 37932 9001 Problem History of bladder repair surgery Z98.890 Active confirmed 694304410 Problem Type 2 diabetes mellitus wit h complication, unspecified mcfp insulin use status E11.8 Active confirmed 227968688 Problem Malignant neoplasm of colon, unspecified part of colon C18.9 Active confirmed 062065133 Problem Essential hypertension I10 Active confirmed 71879130 Problem Urinary obstruction N13.9 Active confirmed 9622002 Problem 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 Active confirmed 92689622 Problem 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 Active confir med 02008697 Problem Frequent UTI N39.0 Active confirmed 5396222 5 Problem Urge incontinence N39.41 Active confirmed 87 308236 Problem Pressure ulcer of left heel, stage 3 L89.623 Act raffy confirmed 080148789 Problem Combined hyperlipidemia E78.2 Active confirmed 960043471 Problem Pressure ulcer of left heel, stage 2 L89.622 Act raffy confirmed 328189205 Problem Hydronephrosis with ureteral stricture, not else where classified N13.1 Active confirmed 35423242 Problem Ureteral stricture, left N13.5 Active confirmed 89047621 Problem Urgency of urination R39.15 Active confirmed 25307725 Problem Other urinary incontinence N39.498 Active confirmed 749630197 Problem Pressure ulcer of right heel, stage 2 L89.612 Ac tive confirmed 607064788 Problem Decubitus ulcer of left heel, stage 2 L89.622 Ac tive confirmed 866345059 ALLERGIES Allergen (clinical drug ingredient) Drug/Non Drug Allergy do cumented on EMR Reaction Allergy Type Onset Date Status accupril dizzy Non Drug Allergy Active lisinopril Lisinopril(NDC Code:[address]-60) DIZZY Drug Allergy Active aspirin Aspirin(ND Code:[address]-75) Anaphylaxis Drug Allergy Active Contrast Dye Itchy Non Drug Allergy Active ENCOUNTERS from 1950 to 2021-07-26 Encounter Location Date Provider Diagnosis [facility] [address] [phone] [place] [address] Jul, Jessika Young Contamination of urine culture R82.90 IMMUNIZATIONS Vaccine Route Administration Date Status COVID-19 dose #1 given elsewhere Unspecified Unknown Nov 20, 2020 Administered Influenza 18 yrs & older Flublok IM Intramuscular Aug 13, 2018 Administered Influenza (High Dose 65 & up) Unknown Jul 31, 2017 Ad ministered SOCIAL HISTORY Tobacco Use: Social History Observation Description Date Details (start date - stop date) Former Smoker Sex Assigned At : Social History Observation Description Sex Assigned At Unknown Education: Question Answer Notes Level of Education: College Audit Question Answer Notes Total Score: 0 Interpretation: Alcohol Education Language: Question Answer Notes Languages spoken: Amharic Restorationism: Question Answer Notes Restorationism 21 Church No worship beliefs that would impact health care. Sexual Hx: Question Answer Notes Had sex in the last 12 months (vaginal, oral, or anal)? No Have you ever had an STD? No Drug and Alcohol Question Answer Notes Total Score: 0 Interpretation: No problems reported Alcohol Screening: Question Answer Notes Did you have a drink containing alcohol in the past year? Ye s Points 1 Interpretation Negative How often did you have six or more drinks on one occas ion in the past year? Never (0 points) How many drinks did you have on a typica l day when you were drinking in the past year? 1 or 2 (0 points) How often did you have a drink containing alcohol in t he past year? Monthly or less (1 point) BMI Care Goal Follow-Up Question Answer Notes Above Normal BMI Follow-Up Dietary management educatio n, guidance, and counseling Tobacco Use: Question Answer Notes Are you a: former smoker How long has it been since you last smoked? > 10 years REASON FOR REFERRAL No Information VITAL SIGNS No information MEDICATIONS Medication SIG (Take, Route, Frequency, Duration) Notes Start Da te End Date Status Methenamine Hippurate 1 GM 1 tablet Orally Twice a day for 90 da ys Jul, Active predniSONE 50 MG TAKE 1 TABLET BY MOUTH ON 02 15 21 AT 11 PM THEN TAKE 1 TABLET ON 02 16 2021 AT 530 AM THEN TAKE 1 TABLET AT 1130 AM Oral for 1 Not-Taking SM Stool Softener 100 MG TAKE 1 SOFTGEL BY MOUTH ONCE DAILY NEEDED FOR CONSTIPATION Oral for 30 Active May Have - wheelchair DX: colon Cancer C18,9, N82.3 May Active Atorvastatin Calcium 10 MG TAKE 1 TABLET BY MOUTH ONCE DAILY Oral Active Hydrochlorothiazide 12.5 MG TAKE 1 CAPSULE BY MOUTH ON CE DAILY IN THE MORNING Oral Active Methadone HCl 10 MG 3 times per day Orally Active Tolterodine Tartrate ER 4 MG TAKE 1 CAPSULE BY MOUTH O NCE DAILY FOR 30 DAYS Oral for 30 Not-Taking Tresiba FlexTouch 200 UNIT/ML INJECT 32 UNITS SUBCUTAN EOUSLY ONCE DAILY AT BEDTIME Subcutaneous Active diphenhydrAMINE HCl 25 MG TAKE 2 CAPSULES BY MOUTH ONC E DAILY [address] SCAN. Oral for 1 Active Levothyroxine Sodium 125 MCG TAKE 1 TABLET BY MOUTH ON CE DAILY IN THE MORNING ON AN EMPTY STOMACH Oral for 90 days Active HYDROcodone-Acetaminophen 5-325 MG (Schedule II Drug) TAKE 1 TO 2 TABLETS BY MOUTH EVERY 4 HOURS NEEDED FOR PAIN . DO NOT EXCEED 6 PER 24 HOURS Oral for 30 Active Carvedilol 6.25 MG TAKE 1 TABLET BY MOUTH TWICE DAILY Oral for 90 Active Morphine Sulfate 15 MG 1 tablet as needed Orally every 4 hrs Active EQ Allergy Relief 25 MG TAKE 2 TABLETS BY MOUTH ONE HOUR PRIOR TO PROCEDURE Oral for 1 Active OneTouch Verio - USE 1 STRIP TO CHECK GLUCOSE TWICE DAILY In Vitro fo r 25 Active Amlodipine Besylate 5 MG TAKE 1 TABLET BY MOUTH ONCE DAILY Oral for 3 0 Not-Taking Euthyrox 125 MCG TAKE 1 TABLET BY MOUTH ONCE DAILY IN THE MORNING ON AN EMPTY STOMACH Oral for 30 Not-Taking levoFLOXacin 500 MG TAKE 1 TABLET BY MOUTH EVERY 48 HOURS (EVERY OTHER DAY) WITH A MEAL FOR 5 DAYS Oral for 6 Not -Taking Bactrim DS 800-160 MG 1 tablet Orally Twice a day for 10 day(s) May, Not-Taking Gabapentin 300 MG TAKE 2 CAPSULES BY MOUTH ONCE DAILY Oral for 90 Active Polyethylene Glycol 3350 17 GM/SCOOP DISSOLVE 17 GRAMS IN WATER AND DRINK BY MOUTH ONCE DAILY FOR CONSTIPATION Oral for 14 Active PROCEDURES No Information RESULTS No Results REASON FOR VISIT UA+ Contaminated [facility] MEDICAL (GENERAL) HISTORY Type Description Date Medical History colon cancer-2004 resected, again in 2013 resected, irradiated, chemo x2 c liver resected also, PE Medical History T2DM Medical History Hypothyroidism Medical History MRSA vulva abcess 2011 Medical History Hyperlipidemia Medical History PULMONARY EMBOLISM: 2015 aft er liver resection, Xarelto x 6 months Medical History LEFT HYDRONEPHROSIS WITH PROGRESSIVE LINDSEY AL INSUFFICIENCY Medical History recurrent UTI's Medical History blood clot found 01/25/2021 Medical History Left heel has ulcer on it going to Wound Care Surgical History colon, cancer surgery-resection 2003 Surgical History tonsillectomy Surgical History colon surgery 2013 Surgical History liver resection- [facility] 2015 Surgical History port implanted 2013 Surgical History Colonoscopy: Dr. Barber 04/30/2017 Surgical History PORT IMPLANT REMOVED 06/19/2017 Surgical History L URETERAL STENT REMOVAL 12/24/2017 Surgical History ureteral reimplantation- Dr. Solitario Surgical History CYSTO WITH LEFT STENT REMOVAL 04/15/2018 Surgical History Colostomy 02/2019 Surgical History partial left hip replacement 07/2019 Surgical History Left IVC port placement 07/2019 Surgical History Failure to thrive 01/2021 Hospitalization History Pulmonary embolus @ [facility] 07/2016 Hospitalization History Uretral stricture removal and reimpl antation 02/2018 Hospitalization History NUB-HL-Uqeloaqsbsy,weakness-UTI 2018 Hospitalization History rectal bleeding 01/25/19-01/29/19 Hospitalization History fractured femur 07/2019 Hospitalization History [facility] for 4 days for diverticulitis 2019 Hospitalization History anemia, weakness 01/25/2021 Hospitalization History dyspnea 02/14/2021 Hospitalization History Sepsis 02/22/21 - 1 Hospitalization History Left heel wound 03/2021 Hospitalization History Cellulitis 02/22/2021 Goals Section No Information Health Concerns No Information MEDICAL EQUIPMENT No Information MENTAL STATUS No Information FUNCTIONAL STATUS No Information ASSESSMENTS Encounter Date Diagnosis Assessment Notes Treatment Notes Treatm ent Clinical Notes Jul, Contamination of urine culture (ICD-10 - R82.90) PLAN OF TREATMENT Medication Medication Name Sig Start Date Stop Date Methenamine Hippurate 1 GM 1 tablet Orally Twice a day for 90 da ys Jul, Treatment Notes Test Name Order Date INSERT BLADDER CATHETER 2021-07-26 URINE CULTURE 2021-07-26 Microscopic Only Urine (Auto) 2021-07-26 Next Appt Details Provider Name:Jessika Young, 08:30:00 AM, [address], , [place], [address], Provider Name:Rani Blas, 2020-10 0 01:15:00 PM, [address] , , [place], [address], Provider Name:Jessika Young, 08:00:00 AM, [address], , [place], [address], Insurance Providers Payer Name Payer Address Payer Phone Insured Name Patient Relati onship to Insured Coverage Start Date Coverage End Date MEDICARE Part A and B [address] [facility] [id number] [phone] [facility] OPTIONS [facility] CLAIM DIV [address] [facility] [id number] ARB[employer] QUINTERO self
--- OUTSIDE RECORDS SUMMARY | 2021-07-28 03:40 | CCD | Continuity of Care Document ---
Author Author Elisabeth BANDA DPM Organization Unknown Address [address] [place] [address], [address] [place] [address] Phone [phone] Care Team Providers Care Support Representative Name Role Phone Zakia JoelM [phone] Problems Active Problems Provider Date Type 2 diabetes mellitus with ulcer Estevan Banda DPM Ons et: 04/11/2021 Onychomycosis Estevan Banda DPM Onset: 04/11/2021 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 mellitus Estevan Banda DPM Onset: 04/11/2021 Social History Type Date Description Comments Sex Unknown ETOH Use Denies alcohol use Tobacco Use Start: Unknown Patient has never smoked Allergies, Adverse Reactions, Alerts Active Allergies Criticality Reaction | Severity Comments Date Aspirin Unable to assess criticality 04/03/2021 Atenolol Unable to assess criticality 04/03/2021 Lisinopril Unable to assess criticality 04/03/2021 Medications Active Medications SIG Qnty Indications Ordering Provide r Date Ammonium Lactate 12% Cream apply to feet daily 140gm Estevan Banda DPM 04/03/2021 Levothyroxine Sodium 175mcg Tablet s Take 1 Tablet By Mouth Once Daily Unknown Cephalexin 500mg Capsules Zakia Joel Levothyroxine Sodium 112mcg Tablet s Take 1 Tablet By Mouth Once Daily Unknown Cefdinir 300mg Capsules Zakia Joel Levofloxacin 250mg Tablets Take 1 Tablet By Mouth Once Daily For 5 Days Unknown 0 Sulfamethoxazole/Trimethoprim DS 800-160mg Tablets Unknown Oxybutynin Chloride 5mg Tablets Take 1 Tablet By Mouth Twice Daily Unknown Diphenhydramine HCL 25mg Capsules Take 2 Capsules By Mouth Once Daily [address] Scan. Unknown Carvedilol 6.25mg Tablets Zakia Joel Ondansetron 8mg Tablets Dispers Lesli Lazaro M.D. Prochlorperazine Maleate 10mg Tablets Lesli Lazaro M.D. Oxybutynin Chloride ER 15mg Tablets ER 24HR Unknown Nitrofurantoin Monohydrate/Macrocrystals 100mg Capsules Unknown Hydrochlorothiazide 12.5mg Capsules Zakia Joel Atorvastatin Calcium 10mg Tablets Take 1 Tablet By Mouth Once Daily Unknown SM Stool Softener 100mg Capsules Take 1 Softgel By Mouth Once Daily as Needed For Constipation Unknown Euthyrox 137mcg Tablets Mohini Groves M.D. Polyethylene Glycol 3350 17GM/Scoop Powder Dissolve 17 Grams In Water And Drink By Mouth Once Daily For Con stipation Unknown Prednisone 50mg Tablets Zakia Joel Eq Allergy Relief 25mg Tablets Take 2 Tablets By Mouth One Hour Prior To Procedure Unk nown Onetouch Verio Strips Use 1 Strip To Check Glucose Twice Daily Unknown Tresiba Flextouch 20 0Unit/ML Solution Pen-Inject Inject 36 Units Subcutaneously Once Daily AT Bedtime Unknown Levofloxacin 500mg Tablets Take 1 Tablet By Mouth Every 48 Hours (Every Other Day) With A Meal For 5 Days Unknown Methadone HCL 5mg Tablets Take 1 Tablet By Mouth Twice Daily . DO Not Exceed 2 Per 24 Hours Unknown Euthyrox 125mcg Tablets Zakia Joel Gabapentin 300mg Capsules Ramírez Zakia [id number] Amoxicillin/Clavulanate Potassium 875-125mg Tablets Take One Tablet By Mouth Every 12 Hours For 10 Days Unknown Doxycycline Monohydrate 100mg Caps ules Take 1 Capsule By Mouth Twice Daily Unknown Amlodipine Besylate 5mg Tablets Take 1 Tablet By Mouth Once Daily Unknown Hydrocodone-Acetaminophen 5-325mg Tablets Take 1 To 2 Tablets By Mouth Every 4 Hours as Needed For Pain . DO Not Exceed 6 Per 24 Hours Unknown Immunizations Description No Information Available Vital Signs Description No Information Available Results Description No Information Available Procedures Date Code Description Status 06/12/2021 31793 Debridement 6-10 Nails Electric Completed 04/03/2021 74483 Office/Outpatient Established MDM 10-19 Min Completed 04/03/2021 27640 Debridement 6-10 Nails Electric Completed 03/23/2021 72840 Hospital Initial Care Level 3 Co mpleted 03/23/2021 49664 Debridement Skin/Tissue Complete d Medical Devices Description No Information Available Encounters Type Date Location Provider Dx Diagnosis Office Visit 04/03/2021 2:45p [facility] Estevan Banda DPM E11.621 Type 2 diabetes mellitus with foot ulcer L89.892 Pressure ulcer of other site , stage 2 B35.1 Tinea unguium E11.42 Type 2 diabetes mellitus wit h diabetic polyneuropathy Assessments Date Code Description Provider 06/28/2021 E11.42 Type 2 diabetes mellitus with di abetic polyneuropathy Estevan Banda DPM 06/12/2021 B35.1 Tinea unguium Estevan Banda DPM 06/12/2021 E11.42 Type 2 diabetes mellitus with di abetic polyneuropathy Estevan Banda DPM 04/03/2021 E11.621 Type 2 diabetes mellitus with fo ot ulcer Estevan Banda DPM 04/03/2021 L89.892 Pressure ulcer of other site, st age 2 Estevan Banda DPM 04/03/2021 B35.1 Tinea unguium Estevan Banda DPM 04/03/2021 E11.42 Type 2 diabetes mellitus with di abetic polyneuropathy Estevan Banda DPM 03/23/2021 E11.621 Type 2 diabetes mellitus with fo ot ulcer Estevan Banda DPM 03/23/2021 L89.622 Pressure ulcer of left heel, sta ge 2 Estevna Banda DPM Plan of Treatment Future Appointment(s):* 08/21/2021 2:45 pm - Estevan Banda DPM at [facility] Functional Status Description No Information Available Mental Status Description No Information Available Referrals Description No Information Available"
--- OUTSIDE RECORDS SUMMARY | 2021-07-28 03:40 | CCD ---
Author Author [facility] Organization [facility] ems Address Unknown Phone Unavailable Care Team Providers Care Teleservices Representative Name Role Phone Imelda Art Unavailable PROBLEMS Type Condition ICD9-CM Code [id number] Code Onset Dates Condition S tatus W/U Status Risk SNOMED Code Notes Problem Anemia, unspecified type D64.9 Active confirmed 985880418 Problem Morbid obesity, unspecified obesity type E66.01 Active confirmed 072189038 Problem Lipid screening Z13.220 Active confirmed 243 740356 Problem alf current use of insulin Z79.4 Active conf irmed 311695982 Problem Acquired hypothyroidism E03.9 Active confirmed 520945521 Problem Hydronephrosis with ureteral stricture, not else where classified N13.1 Active confirmed 30138430 Problem Hydronephrosis N13.30 Active confirmed 83215 006 Problem 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 Active confir med 04192898 Problem Personal history of pulmonary embolism Z86.711 A ctive confirmed 775977273 Problem 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 Active confirmed 41 0593866 Problem 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 Active confirmed 14087025 Problem Hypothyroidism, unspecified type E03.9 Active conf irmed 45638390 Problem Type 2 diabetes mellitus wit h complication, without long-term current use of insulin E11.8 Active confirmed 05515729 Problem Type 2 diabetes mellitus wit h complication, unspecified rn long term care insulin use status E11.8 Active confirmed 074732530 Problem Postop check Z09 Active confirmed 5488797 07 Problem Essential hypertension I10 Active confirmed 66235145 Problem History of bladder repair surgery Z98.890 Active confirmed 525722303 Problem 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 Active confirmed 12463397 Problem Malignant neoplasm of colon, unspecified part of colon C18.9 Active confirmed 331041022 Problem 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 Active confirmed 3 97060940 Problem Urinary obstruction N13.9 Active confirmed 9145851 Problem Frequent UTI N39.0 Active confirmed 9278248 5 Problem Urge incontinence of urine N39.41 Active confirmed 46061995 Problem Urge incontinence N39.41 Active confirmed 87 635913 Problem Pressure ulcer of left heel, stage 3 L89.623 Act raffy confirmed 778016023 Problem Ureteral stricture, left N13.5 Active confirmed 69086032 Problem Pressure ulcer of left heel, stage 2 L89.622 Act raffy confirmed 478105022 Problem Combined hyperlipidemia E78.2 Active confirmed 761552559 Problem Preop testing Z01.818 Active confirmed 58352 9001 Problem Urgency of urination R39.15 Active confirmed 16794914 Problem Other urinary incontinence N39.498 Active confirmed 926608693 Problem Pressure ulcer of right heel, stage 2 L89.612 Ac tive confirmed 148884819 Problem Decubitus ulcer of left heel, stage 2 L89.622 Ac tive confirmed 525179622 ALLERGIES Allergen (clinical drug ingredient) Drug/Non Drug Allergy do cumented on EMR Reaction Allergy Type Onset Date Status accupril dizzy Non Drug Allergy Active lisinopril Lisinopril(ND Code:[address]-59) DIZZY Drug Allergy Active aspirin Aspirin(ND Code:[address]-40) Anaphylaxis Drug Allergy Active Contrast Dye Itchy Non Drug Allergy Active ENCOUNTERS from 1950 to 2021-07-10 Encounter Location Date Provider Diagnosis [facility] [address] [phone] [place] [address] Jun, 2021 Imelda Recore Urgency of urination R39.15 and Urge inc ontinence N39.41 IMMUNIZATIONS Vaccine Route Administration Date Status COVID-19 [...] Education Language: Question Answer Notes Languages spoken: German Tenriism: Question Answer Notes Tenriism 21 Yarsani No yazidism beliefs that would impact health care. Sexual [...] REASON FOR REFERRAL No Information VITAL SIGNS Weight 186 lbs Jun, Weight-kg 84.37 kg Jun, Height 61.5 in Jun, BMI 34.57 kg/m2 Jun, Heart Rate 85 /min Jun, Respiratory Rate 19 /min Jun, Temperature 97.2 degrees Fahrenheit Jun, Oximetry 92 Jun, Blood pressure systolic 136 mm Hg Jun, Blood pressure diastolic 82 mm Hg Jun, MEDICATIONS Medication SIG (Take, Route, Frequency, Duration) Notes Start Da te End Date Status Hydrochlorothiazide 12.5 MG TAKE 1 CAPSULE BY MOUTH ON CE DAILY IN THE MORNING Oral Active Amlodipine Besylate 5 MG TAKE 1 TABLET BY MOUTH ONCE DAILY Oral for 3 0 Not-Taking Carvedilol 6.25 MG TAKE 1 TABLET BY MOUTH TWICE DAILY Oral for 90 Active Atorvastatin Calcium 10 MG TAKE 1 TABLET BY MOUTH ONCE DAILY Oral Active OneTouch Verio - USE 1 STRIP TO CHECK GLUCOSE TWICE DAILY In Vitro fo r 25 Active Oxybutynin Chloride ER 15 MG TAKE 1 TABLET BY MOUTH ONCE DAILY Oral for 30 Active Morphine Sulfate 15 MG 1 tablet as needed Orally every 4 hrs Active SM Stool Softener 100 MG TAKE 1 SOFTGEL BY MOUTH ONCE DAILY NEEDED FOR CONSTIPATION Oral for 30 Active Levothyroxine Sodium 125 MCG TAKE 1 TABLET BY MOUTH ON CE DAILY IN THE MORNING ON AN EMPTY STOMACH Oral Active Polyethylene Glycol 3350 17 GM/SCOOP DISSOLVE 17 GRAMS IN WATER AND DRINK BY MOUTH ONCE DAILY FOR CONSTIPATION Oral for 14 Active Gabapentin 300 MG TAKE 2 CAPSULES BY MOUTH ONCE DAILY Oral for 90 Active Tolterodine Tartrate ER 4 MG TAKE 1 CAPSULE BY MOUTH O NCE DAILY FOR 30 DAYS Oral for 30 Active May Have - wheelchair DX: colon Cancer C18,9, N82.3 May Active EQ Allergy Relief 25 MG TAKE 2 TABLETS BY MOUTH ONE HOUR PRIOR TO PROCEDURE Oral for 1 Active Euthyrox 125 MCG TAKE 1 TABLET BY MOUTH ONCE DAILY IN THE MORNING ON AN EMPTY STOMACH Oral for 30 Not-Taking diphenhydrAMINE HCl 25 MG TAKE 2 CAPSULES BY MOUTH ONC E DAILY [address] SCAN. Oral for 1 Active levoFLOXacin 500 MG TAKE 1 TABLET BY MOUTH EVERY 48 HOURS (EVERY OTHER DAY) WITH A MEAL FOR 5 DAYS Oral for 6 Not -Taking Tresiba FlexTouch 200 UNIT/ML INJECT 32 UNITS SUBCUTAN EOUSLY ONCE DAILY AT BEDTIME Subcutaneous Active Bactrim DS 800-160 MG 1 tablet Orally Twice a day for 10 day(s) May, Active Macrobid 100 MG 1 cap Orally bid for 10 day(s) May, Active Methadone HCl 5 MG 3 times per day Oral Active predniSONE 50 MG TAKE 1 TABLET BY MOUTH ON 02 15 21 AT 11 PM THEN TAKE 1 TABLET ON 02 16 2021 AT 530 AM THEN TAKE 1 TABLET AT 1130 AM Oral for 1 Not-Taking HYDROcodone-Acetaminophen 5-325 MG (Schedule II Drug) TAKE 1 TO 2 TABLETS BY MOUTH EVERY 4 HOURS NEEDED FOR PAIN . DO NOT EXCEED 6 PER 24 HOURS Oral for 30 Active PROCEDURES No Information RESULTS No Results REASON FOR VISIT UDS incontinence MEDICAL (GENERAL) HISTORY Type Description Date Medical History colon cancer-2004 resected, again in 2013 resected, irradiated, chemo x2 c liver resected also, PE Medical History T2DM Medical History Hypothyroidism Medical History MRSA vulva abcess 2012 Medical History Hyperlipidemia Medical History PULMONARY EMBOLISM: 2016 aft er liver resection, Xarelto x 6 months Medical History LEFT HYDRONEPHROSIS WITH PROGRESSIVE LINDSEY AL INSUFFICIENCY Medical History recurrent UTI's Medical History blood clot found 01/25/2021 Medical History Left heel has ulcer on it going to Wound Care Surgical History colon, cancer surgery-resection 2003 Surgical History tonsillectomy Surgical History colon surgery 2013 Surgical History liver resection- [facility] 2015 Surgical History port implanted 2013 [...] thrive 01/2021 Hospitalization History Pulmonary embolus @ [facility] 07/2016 Hospitalization History Uretral stricture removal and reimpl antation 02/2018 Hospitalization History RFD-PK-Rgnyvisrvfn,weakness-UTI 2018 Hospitalization History rectal bleeding 01/25/19-01/29/19 Hospitalization History fractured femur 07/2019 Hospitalization History [facility] for 4 days for diverticulitis 2019 Hospitalization History anemia, weakness 01/25/2021 Hospitalization History dyspnea 02/14/2021 Hospitalization History Sepsis 02/22/21 - 1 Hospitalization History Left heel wound 03/2021 Hospitalization History Cellulitis 02/22/2021 Goals Section No Information Health Concerns No Information MEDICAL EQUIPMENT No Information MENTAL STATUS No Information FUNCTIONAL STATUS No Information ASSESSMENTS Encounter Date Diagnosis Assessment Notes Treatment Notes Treatm ent Clinical Notes Jun, Urgency of urination (ICD-10 - R39.15) Jun, Urge incontinence (ICD-10 - N39.41) PLAN OF TREATMENT Next Appt Details f/u with Hector Reason: Provider Name:Jessika Young, 11:15:00 AM, [address], , [place], [address], Provider Name:Rani Blas, 2020-10 01:15:00 PM, [address], , [place], [address], Insurance Providers Payer Name Payer Address Payer Phone Insured Name Patient Relati onship to Insured Coverage Start Date Coverage End Date MEDICARE Part A and B [address] [facility] [phone] [facility] CLAIM [facility] [address] [facility] [address] [employer] self
--- OUTSIDE RECORDS SUMMARY | 2021-07-28 03:40 | CCD ---
Author Author [facility] Organization [facility] Address Unknown Phone Unavailable Care Team Providers Care Footwear Sales Associate Name Role Phone Jessika Young Unavailable PROBLEMS Type Condition ICD9-CM Code [id number] Code Onset Dates Condition S tatus W/U Status Risk SNOMED Code Notes Problem Hypothyroidism, unspecified type E03.9 Active conf irmed 31375246 Problem Lipid screening Z13.220 Active confirmed 243 158946 Problem Anemia, unspecified type D64.9 Active confirmed 254268442 Problem Acquired hypothyroidism E03.9 Active confirmed 321066874 Problem Morbid obesity, unspecified obesity type E66.01 Active confirmed 123670802 Problem Hydronephrosis N13.30 Active confirmed 46548 006 Problem terminal clerk current use of insulin Z79.4 Active conf irmed 889859018 Problem 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 Active confirmed 41 1287176 Problem 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 Active confirmed 23055920 Problem 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 Active confirmed 3 44860810 Problem Type 2 diabetes mellitus wit h complication, without long-term current use of insulin E11.8 Active confirmed 59300948 Problem Personal history of pulmonary embolism Z86.711 A ctive confirmed 714190117 Problem Postop check Z09 Active confirmed 9492604 07 Problem Preop testing Z01.818 Active confirmed 29185 9001 Problem History of bladder repair surgery Z98.890 Active confirmed 406549222 Problem Type 2 diabetes mellitus wit h complication, unspecified jail insulin use status E11.8 Active confirmed 523807270 Problem Malignant neoplasm of colon, unspecified part of colon C18.9 Active confirmed 012250511 Problem Essential hypertension I10 Active confirmed 99647014 Problem Urinary obstruction N13.9 Active confirmed 1233783 Problem 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 Active confirmed 37211078 Problem 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 Active confir med 24706292 Problem Frequent UTI N39.0 Active confirmed 3749989 5 Problem Urge incontinence N39.41 Active confirmed 87 970299 Problem Pressure ulcer of left heel, stage 3 L89.623 Act raffy confirmed 997774931 Problem Combined hyperlipidemia E78.2 Active confirmed 201778741 Problem Pressure ulcer of left heel, stage 2 L89.622 Act raffy confirmed 999309091 Problem Hydronephrosis with ureteral stricture, not else where classified N13.1 Active confirmed 19127977 Problem Ureteral stricture, left N13.5 Active confirmed 06955637 Problem Urgency of urination R39.15 Active confirmed 59581872 Problem Other urinary incontinence N39.498 Active confirmed 478251513 Problem Pressure ulcer of right heel, stage 2 L89.612 Ac tive confirmed 023977573 Problem Decubitus ulcer of left heel, stage 2 L89.622 Ac tive confirmed 982548694 ALLERGIES Allergen (clinical drug ingredient) Drug/Non Drug Allergy do cumented on EMR Reaction Allergy Type Onset Date Status accupril dizzy Non Drug Allergy Active lisinopril Lisinopril(NDC Code:[address]-08) DIZZY Drug Allergy Active aspirin Aspirin(ND Code:[address]-75) Anaphylaxis Drug Allergy Active Contrast Dye Itchy Non Drug Allergy Active ENCOUNTERS from 1950 to 2021-07-25 Encounter Location Date Provider Diagnosis [facility] Urology [address] [phone] [place] [address] 11 Jul, 2021 Jessika Young Ureteral stricture, left N13.5 ; Frequen t UTI N39.0 ; Urinary frequency R35.0 ; Renal insufficiency N28.9 ; Urge incontinence N39.41 and 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 IMMUNIZATIONS Vaccine Route Administration Date Status COVID-19 [...] Education Language: Question Answer Notes Languages spoken: Syriac Anglican: Question Answer Notes Anglican 21 Advent No hinduism beliefs that would impact health care. Sexual [...] FOR REFERRAL No Information VITAL SIGNS Weight 182 lbs Jul, Weight-kg 82.55 kg Jul, Height 61.5 in Jul, BMI 33.83 kg/m2 Jul, Heart Rate 86 /min Jul, Respiratory Rate 18 /min Jul, Temperature 97.5 degrees Fahrenheit Jul, Oximetry 97% Jul, Blood pressure systolic 122 mm Hg Jul, Blood pressure diastolic 62 mm Hg Jul, MEDICATIONS Medication SIG (Take, Route, Frequency, Duration) [...] Information RESULTS No Results REASON FOR VISIT f/u after UDS MEDICAL (GENERAL) HISTORY Type Description Date Medical History colon cancer-2003 resected, again in 2013 resected, irradiated, chemo [...] colon surgery 2013 Surgical History liver resection- [facility] 2015 Surgical History port implanted 2013 [...] thrive 01/2021 Hospitalization History Pulmonary embolus @ [facility] 07/2016 Hospitalization History Uretral stricture removal and reimpl antation 02/2018 Hospitalization History LMY-ZX-Jheriyxuzrm,weakness-UTI 2018 Hospitalization History rectal bleeding 01/25/19-01/29/19 Hospitalization History fractured femur 07/2019 Hospitalization History [facility] for 4 days for diverticulitis 2019 Hospitalization [...] Treatment Notes Treatm ent Clinical Notes Jul, Frequent UTI (ICD-10 - N39.0) Jul, Ureteral stricture, left (ICD-10 - N13.5) Plan: -Schedule test stimulation in the office for InterStim and this was explained at length. Informed consent was obtained. -If patient does well with the test we will go ahead with permanent implantation and paperwork was started so we can hold a spot in the operating room -Send urine for microscopic urinalysis and culture and sensitivity today -Patient will need medical clearance prior to the procedure -Change Macrobid to methenamine 1 g p.o. twice daily -Schedule renal ultrasound since it has been 3 years to make sure that there is no hydronephrosis after her ureteral reimplantation and radiation therapy This was dictated with Renetta and not proofread for errors Jul, Urinary frequency (ICD-10 - R35.0) Jul, Renal insufficiency (ICD-10 - N28.9) Jul, Urge incontinence (ICD-10 - N39.41) Jul, Recto-vaginal fistula (ICD-10 - N82.3) PLAN OF TREATMENT Medication Medication Name Sig Start Date Stop Date Methenamine Hippurate 1 GM 1 tablet Orally Twice a day for 90 da ys Jul, Treatment Notes Assessment Notes Clinical Notes Ureteral stricture, left Plan:-Schedule test stimulation in the office for InterStim and this was explained at length. Informed consent was obtained.-If patient does well with the test we will go ahead with permanent implantation and paperwork was started so we can hold a spot in the operating room-Send urine for microscopic urinalysis and culture and sensitivity today-Patient will need medical clearance prior to the procedure-Change Macrobid to methenamine 1 g p.o. twice daily-Schedule renal ultrasound since it has been 3 years to make sure that there is no hydronephrosis after her ureteral reimplantation and radiation therapyThis was dictated with Dragon and not proofread for errors Treatment Notes Test Name Order Date [facility] RENAL US 2021-07-24 Reflex Urine Culture (Non-Orderable) 2021-07-24 Microscopic Only Urine (Auto) 2021-07-24 Next Appt Details Provider Name:Rani Blas, 2020-10 01:15:00 PM, [address] , , [place], [address], Provider Name:Jessika Young, 08:00:00 AM, [address], , [place], [address], Insurance Providers Payer Name Payer Address Payer Phone Insured Name Patient Relati onship to Insured Coverage Start Date Coverage End Date MEDICARE Part A and B [address] [facility] [phone] [facility] [employer] [employer] OPTIONS [facility] CLAIM DIV [address] [facility] [id number] [employer]
--- OUTSIDE RECORDS SUMMARY | 2021-07-28 03:40 | CCD ---
Author Author [facility] Organization [facility] Address Unknown Phone Unavailable Care Team Providers Care Copy Center Operator Name Role Phone Rani Blas Unavailable PROBLEMS Type Condition ICD9-CM Code [id number] Code Onset Dates Condition S tatus W/U Status Risk SNOMED Code Notes Problem Anemia, unspecified type D64.9 Active confirmed 961968321 Problem Morbid obesity, unspecified obesity type E66.01 Active confirmed 022372070 Problem Lipid screening Z13.220 Active confirmed 243 129736 Problem termination clerk current use of insulin Z79.4 Active conf irmed 829097217 Problem Acquired hypothyroidism E03.9 Active confirmed 154000532 Problem Hydronephrosis with ureteral stricture, not else where classified N13.1 Active confirmed 64054560 Problem Hydronephrosis N13.30 Active confirmed 73976 006 Problem 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 Active confir med 51571393 Problem Personal history of pulmonary embolism Z86.711 A ctive confirmed 583269071 Problem 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 Active confirmed 41 9370607 Problem 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 Active confirmed 10933811 Problem Hypothyroidism, unspecified type E03.9 Active conf irmed 79664734 Problem Type 2 diabetes mellitus wit h complication, without long-term current use of insulin E11.8 Active confirmed 64395783 Problem Type 2 diabetes mellitus wit h complication, unspecified group home insulin use status E11.8 Active confirmed 963744383 Problem Postop check Z09 Active confirmed 9510699 07 Problem Essential hypertension I10 Active confirmed 77233282 Problem History of bladder repair surgery Z98.890 Active confirmed 630611693 Problem 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 Active confirmed 69452612 Problem Malignant neoplasm of colon, unspecified part of colon C18.9 Active confirmed 522483367 Problem 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 Active confirmed 3 65476542 Problem Urinary obstruction N13.9 Active confirmed 7014836 Problem Frequent UTI N39.0 Active confirmed 6029195 5 Problem Urge incontinence of urine N39.41 Active confirmed 61687108 Problem Urge incontinence N39.41 Active confirmed 87 617889 Problem Pressure ulcer of left heel, stage 3 L89.623 Act raffy confirmed 620286601 Problem Ureteral stricture, left N13.5 Active confirmed 01241985 Problem Pressure ulcer of left heel, stage 2 L89.622 Act raffy confirmed 345216038 Problem Combined hyperlipidemia E78.2 Active confirmed 492229985 Problem Preop testing Z01.818 Active confirmed 48827 9001 Problem Urgency of urination R39.15 Active confirmed 79658455 Problem Other urinary incontinence N39.498 Active confirmed 920112924 Problem Pressure ulcer of right heel, stage 2 L89.612 Ac tive confirmed 980557462 Problem Decubitus ulcer of left heel, stage 2 L89.622 Ac tive confirmed 928205891 ALLERGIES Allergen (clinical drug ingredient) Drug/Non Drug Allergy do cumented on EMR Reaction Allergy Type Onset Date Status accupril dizzy Non Drug Allergy Active lisinopril Lisinopril(ND Code:[address]-05) DIZZY Drug Allergy Active aspirin Aspirin(ND Code:[address]-59) Anaphylaxis Drug Allergy Active Contrast Dye Itchy Non Drug Allergy Active ENCOUNTERS from 1950 to 2021-07-20 Encounter Location Date Provider Diagnosis [facility] [phone] [place] [address] Jul, Rani Blas Hypothyroidism, unspecified type E03.9 IMMUNIZATIONS Vaccine Route Administration Date Status COVID-19 [...] Education Language: Question Answer Notes Languages spoken: Tamazight Adventist: Question Answer Notes Adventist 21 Samaritan No gnosticist beliefs that would impact health care. Sexual [...] MOUTH ONCE DAILY Oral for 30 Active EQ Allergy Relief 25 MG TAKE 2 TABLETS BY MOUTH ONE HOUR PRIOR TO PROCEDURE Oral for 1 Active SM Stool Softener 100 MG TAKE 1 SOFTGEL BY MOUTH ONCE DAILY NEEDED FOR CONSTIPATION Oral for 30 Active Polyethylene Glycol 3350 17 GM/SCOOP DISSOLVE 17 GRAMS IN WATER AND DRINK BY MOUTH ONCE DAILY FOR CONSTIPATION Oral for 14 Active Morphine Sulfate 15 MG 1 tablet as needed Orally every 4 hrs Active Gabapentin 300 MG TAKE 2 CAPSULES BY MOUTH ONCE DAILY Oral for 90 Active Tolterodine Tartrate ER 4 MG TAKE 1 CAPSULE BY MOUTH O NCE DAILY FOR 30 DAYS Oral for 30 Active May Have - wheelchair DX: colon Cancer C18,9, N82.3 May Active Levothyroxine Sodium 125 MCG TAKE 1 TABLET BY MOUTH ON CE DAILY IN THE MORNING ON AN EMPTY STOMACH Oral for 90 days Active Euthyrox 125 MCG TAKE 1 TABLET [...] Information RESULTS No Results REASON FOR VISIT refill MEDICAL (GENERAL) HISTORY Type Description Date Medical [...] colon surgery 2013 Surgical History liver resection- [facility] 2015 Surgical History port implanted 2013 Surgical [...] thrive 01/2021 Hospitalization History Pulmonary embolus @ [facility] 07/2016 Hospitalization History Uretral stricture removal and reimpl antation 02/2018 Hospitalization History CNB-XC-Kvkeycfduvt,weakness-UTI 2018 Hospitalization History rectal bleeding 01/25/19-01/29/19 Hospitalization History fractured femur 07/2019 Hospitalization History [facility] for 4 days for diverticulitis [...] Treatment Notes Treatm ent Clinical Notes Jul, Hypothyroidism, unspecified type (ICD-10 - E03.9 ) PLAN OF TREATMENT Medication Medication Name Sig Start Date Stop Date Levothyroxine Sodium 125 MCG TAKE 1 TABLET BY MOUTH ON CE DAILY IN THE MORNING ON AN EMPTY STOMACH Oral for 90 days Next Appt Details Provider Name:Jessika Young, 11:15:00 AM, [address], , [place], [address], Provider Name:Rani Blas, 2020-10 01:15:00 PM, [address], , [place], [address], Insurance Providers Payer Name Payer Address Payer Phone Insured Name Patient Relati onship to Insured Coverage Start Date Coverage End Date [employer] [facility] CLAIM DIV [address] [facility] [id number] [employer] MEDICARE Part A and B [address] [facility] [phone] [employer]
--- OUTSIDE RECORDS SUMMARY | 2021-07-28 03:41 | CCD ---
Author Author [facility] Organization [facility] Address Unknown Phone Unavailable Care Team Providers Care Claims Consultant Name Role Phone Alan Olivares Unavailable PROBLEMS Type Condition ICD9-CM Code [id number] Code Onset Dates Condition S tatus W/U Status Risk SNOMED Code Notes Problem Hypothyroidism, unspecified type E03.9 Active conf irmed 83799771 Problem Lipid screening Z13.220 Active confirmed 243 951017 Problem Anemia, unspecified type D64.9 Active confirmed 155261556 Problem Acquired hypothyroidism E03.9 Active confirmed 765470513 Problem Morbid obesity, unspecified obesity type E66.01 Active confirmed 749403569 Problem Hydronephrosis N13.30 Active confirmed 00709 006 Problem [facility] current use of insulin Z79.4 Active conf irmed 114227776 Problem 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 Active confirmed 41 4382577 Problem 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8 Active confirmed 735668513 Problem Malignant neoplasm of colon, unspecified part of colon C18.9 Active confirmed 221617679 Problem Essential hypertension I10 Active confirmed 17567334 Problem Urinary obstruction N13.9 Active confirmed 1700202 Problem 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 Active confirmed 73240526 Problem 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 Active confir med 81134805 Problem Frequent UTI N39.0 Active confirmed 8112883 5 Problem Urge incontinence of urine N39.41 Active confirmed 74549179 Problem Decubitus ulcer of left heel, stage 2 L89.622 Ac tive confirmed 512632929 Problem Combined hyperlipidemia E78.2 Active confirmed 817446208 Problem Pressure ulcer of left heel, stage 3 L89.623 Act raffy confirmed 378336152 Problem Hydronephrosis with ureteral stricture, not else where classified N13.1 Active confirmed 94821827 Problem Ureteral stricture, left N13.5 Active confirmed 26728639 Problem Urge incontinence N39.41 Active confirmed 87 151561 Problem Urgency of urination R39.15 Active confirmed 69494017 Problem Other urinary incontinence N39.498 Active confirmed 249000942 Problem Pressure ulcer of right heel, stage 2 L89.612 Ac tive confirmed 606208338 ALLERGIES Allergen (clinical drug ingredient) Drug/Non Drug Allergy do cumented on EMR Reaction Allergy Type Onset Date Status accupril dizzy Non Drug Allergy Active lisinopril Lisinopril(ND Code:[address]-78) DIZZY Drug Allergy Active aspirin Aspirin(ND Code:[address]-72) Anaphylaxis Drug Allergy Active Contrast Dye Itchy Non Drug Allergy Active ENCOUNTERS from 1950 to 2021-05-17 Encounter Location Date Provider Diagnosis [facility] [phone] [place] [address] May, Alan Olivares IMMUNIZATIONS Vaccine Route Administration Date Status COVID-19 [...] Education Language: Question Answer Notes Languages spoken: Eritrean Rastafari: Question Answer Notes Rastafari 21 Faith No presybeterian beliefs that would impact health care. Sexual [...] Notes Start Da te End Date Status Oxybutynin Chloride 5 MG 1 tablet Orally Twice a day for 30 day( s) Aug, Not-Taking Myrbetriq 50 MG 1 tablet Orally Once a day for 90 day(s) 2 Jan, Not-Taking hydroCHLOROthiazide 12.5 MG 1 capsule in the morning O rally Once a day for 90 day(s) duplicate Not-Taking Acetaminophen 500 MG 2 tablet as needed Orally every 6 hrs p t reports that she is not using 325 mg dose Not-Taking Loperamide HCl 2 MG 1 capsule as needed Orally every 6 hours as needed has not needed Active Tresiba FlexTouch 200 UNIT/ML 36 units Subcutaneous da annalise at bedtime for 30 Days Active Ondansetron 8 MG 1 tablet on the tongue and a llow to dissolve as needed Orally twice a day Active Carvedilol 6.25 MG 1 tab Orally twice daily for 90 days Not-Taking Docusate Sodium 100 MG 1 capsule as needed Orally Once a day for 30 day(s) has not needed Active Tucatinib 50 MG 5 tabs Orally Twice a day Not-Taking Levothyroxine Sodium 125 MCG 1 tablet on an empty stom ach in the morning Orally Once a day Apr, Active Amoxicillin-Pot Clavulanate 875-125 MG 1 tablet Orally every 12 hrs for 10 day(s) Not-Taking Simplicity Adult Brief 32"-44" - Change 1 brief ever 4 hours as needed Medium Size (Height 61.5" Weight 211 lb, Waist 34" and Hip 41") DX codes: N13.30, N13.1, N13.5 for 30 Days pharmacy and insurance will not honor this rx Oct, Not-Taking HumaLOG KwikPen 100 UNIT/ML as directed Subcutaneous ac and hs f or 30 days Nov, Not-Taking predniSONE 50 MG 1 tablet Orally Take 1 tab o n 02/16/21 at 2300 1 tab on 02/16/21 at 530 1 tab at 1130 for 1 day(s) February, N ot-Taking Methadone HCl 5 MG 1 tablet Orally Once a day at bedtime, p t reports that she is only using this medication as needed Act raffy Macrobid 100 MG 1 capsule at bedtime with food Orally Once a day Sep, Active Atorvastatin Calcium 10 MG 1 tablet Orally Once a day for 90 days Active Acetaminophen 325 MG 2 tablet as needed Orally every 4 hrs p t reports that she is using 500 mg acetaminophen Active Prochlorperazine 10 MG 1 tablet as needed Orally every 6 hours has not needed Not-Taking levoFLOXacin 250 MG 1 tablet Orally Once a day for 5 day(s) Jul, Not-Taking Tolterodine Tartrate ER 4 MG 1 capsule Orally Once a day for 30 day(s) Apr, Active Bactrim DS 800-160 MG 1 tablet Orally _1 hour prior to cystoscop y Aug, Not-Taking Oxybutynin Chloride ER 15 MG 1 tablet Orally Once a day for 30 d ay(s) Dec, Not-Taking Gabapentin 300 MG 2 capsule Orally Daily for 90 day(s) Active Doxycycline Monohydrate 100 MG 1 capsule Orally Twice a day Not-Taking Nystatin - as directed topically bid ap ply to abd folds, under breasts, and groin area pt reports that she is only using prn Jul, Active DiphenhydrAMINE HCl 25 mg 1 tablet Orally Once a day as needed for itching Not-Taking Ondansetron 4 MG 1 tablet on the tongue and a llow to dissolve Orally every 4 hours prn pt reports that she is only taking 8 mg dose Not-Taking diphenhydrAMINE HCl 50 MG 1 capsule Orally 1 hour prio r to procedure for 1 day(s) February, Active Methadone HCl 5 MG 1 tablet Orally once daily in evening from Roula oconnor 24 Jul, 2019 Not-Taking Cefdinir 300 MG as directed Orally bid for 10 day(s) 30 2019 Not-Taking HYDROcodone-Acetaminophen 5-325 MG 1 tablet as needed Orally every 6 hrs Palliative Care Active Senna Lax 8.6 MG 2 tablets at bedtime as needed Orally On ce a day for 30 day(s) pt reports that she is using otc medication Active MiraLax - as directed Orally Once a day for 90 day(s) has not needed Active hydrOXYzine HCl 25 MG 1 tablet as needed Orally every 8 hrs for 30 da y(s) Active OneTouch Verio - 1 strip In Vitro daily Active PROCEDURES No Information RESULTS No Results REASON FOR VISIT DRESSINGS MEDICAL (GENERAL) HISTORY Type Description Date Medical [...] colon surgery 2013 Surgical History liver resection- [facility] 2015 Surgical History port implanted [...] 01/2021 Hospitalization History Pulmonary embolus @ [facility] 07/2016 Hospitalization History Uretral stricture removal and reimpl antation 02/2018 Hospitalization History [facility]YO-ZR-Stdvhkoyujm,weakness-UTI 2018 Hospitalization History rectal bleeding 01/25/19-01/29/19 Hospitalization History fractured femur 07/2019 Hospitalization History [facility] for 4 days for diverticulitis 2019 Hospitalization History anemia, weakness 01/25/2021 Hospitalization History dyspnea 02/14/2021 Hospitalization History Sepsis 02/22/21 - 1 Hospitalization History Left heel wound 03/2021 Hospitalization History Cellulitis 02/22/2021 Goals Section No Information Health Concerns No Information MEDICAL EQUIPMENT No Information MENTAL STATUS No Information FUNCTIONAL STATUS No Information ASSESSMENTS No Information PLAN OF TREATMENT Next Appt Details Provider Name:Imelda Art, 6 03:00:00 PM, [address], , [place], [address], Provider Name:Alan Olivares, 03:00:00 PM, [address], , [place], [address], Provider Name:Jessika Young, 01:30:00 PM, [address], , [place], [address], Provider Name:Rani Blas, 05-31 01:15:00 PM, [address] , , [place], [address], Insurance Providers Payer Name Payer Address Payer Phone Insured Name Patient Relati onship to Insured Coverage Start Date Coverage End Date [employer]IONS [facility] CLAIM DIV [address] [facility] [phone] ARBEN QUINTERO MEDICARE Part A and B [address] [facility] [address] [phone] ARBEN QUINTERO self
--- OUTSIDE RECORDS SUMMARY | 2021-07-28 03:41 | CCD ---
Author Author [facility] Organization [facility] Address Unknown Phone Unavailable Care Team Providers Care Legal Administrator Name Role Phone Rani Blas Unavailable PROBLEMS Type Condition ICD9-CM Code [id number] Code Onset Dates Condition S tatus W/U Status Risk SNOMED Code Notes Problem Hypothyroidism, unspecified type E03.9 Active conf irmed 19308507 Problem Lipid screening Z13.220 Active confirmed 243 218212 Problem Anemia, unspecified type D64.9 Active confirmed 403414285 Problem Acquired hypothyroidism E03.9 Active confirmed 608509283 Problem Morbid obesity, unspecified obesity type E66.01 Active confirmed 232122857 Problem Hydronephrosis N13.30 Active confirmed 77848 006 Problem halfway current use of insulin Z79.4 Active conf irmed 917816036 Problem 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 Active confirmed 41 9470150 Problem 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 Active confirmed 59093157 Problem 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 Active confirmed 3 66179507 Problem Type 2 diabetes mellitus wit h complication, without long-term current use of insulin E11.8 Active confirmed 23098457 Problem Personal history of pulmonary embolism Z86.711 A ctive confirmed 404699254 Problem Postop check Z09 Active confirmed 8788102 07 Problem Preop testing Z01.818 Active confirmed 97212 9001 Problem History of bladder repair surgery Z98.890 Active confirmed 899930860 Problem Type 2 diabetes mellitus wit h complication, 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 clerk insulin use status E11.8 Active confirmed 224439881 Problem Malignant neoplasm of colon, unspecified part of colon C18.9 Active confirmed 749383296 Problem Essential hypertension I10 Active confirmed 18747652 Problem Urinary obstruction N13.9 Active confirmed 9665946 Problem 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 Active confirmed 39392400 Problem 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 Active confir med 57703759 Problem Frequent UTI N39.0 Active confirmed 3085743 5 Problem Urge incontinence of urine N39.41 Active confirmed 73632056 Problem Decubitus ulcer of left heel, stage 2 L89.622 Ac tive confirmed 116500832 Problem Combined hyperlipidemia E78.2 Active confirmed 616620938 Problem Pressure ulcer of left heel, stage 3 L89.623 Act raffy confirmed 355714274 Problem Hydronephrosis with ureteral stricture, not else where classified N13.1 Active confirmed 11104648 Problem Ureteral stricture, left N13.5 Active confirmed 87065732 Problem Urge incontinence N39.41 Active confirmed 87 174639 Problem Urgency of urination R39.15 Active confirmed 18895007 Problem Other urinary incontinence N39.498 Active confirmed 845898507 Problem Pressure ulcer of right heel, stage 2 L89.612 Ac tive confirmed 599217954 ALLERGIES Allergen (clinical drug ingredient) Drug/Non Drug Allergy do cumented on EMR Reaction Allergy Type Onset Date Status accupril dizzy Non Drug Allergy Active lisinopril Lisinopril(ND Code:[address]-60) DIZZY Drug Allergy Active aspirin Aspirin(ND Code:[address]-50) Anaphylaxis Drug Allergy Active Contrast Dye Itchy Non Drug Allergy Active ENCOUNTERS from 1950 to 2021-05-29 Encounter Location Date Provider Diagnosis [address] [phone] [place] [address] May, 2021 Rani Elmorery IMMUNIZATIONS Vaccine Route Administration Date Status COVID-19 [...] Education Language: Question Answer Notes Languages spoken: Greenlandic Buddhist: Question Answer Notes Buddhist 21 Islam No tenriism beliefs that would impact health care. Sexual [...] Notes Start Da te End Date Status Macrobid 100 MG 1 cap Orally bid for 10 day(s) May, Active Bactrim DS 800-160 MG 1 tablet Orally Twice a day for 10 day(s) May, Active PROCEDURES No Information RESULTS No Results REASON FOR VISIT FYI MEDICAL (GENERAL) HISTORY Type Description Date Medical [...] colon surgery 2013 Surgical History liver resection- [facility] 2015 Surgical History port implanted 2013 [...] thrive 01/2021 Hospitalization History Pulmonary embolus @ [facility] 07/2016 Hospitalization History Uretral stricture removal and reimpl antation 02/2018 Hospitalization History [facility]-NT-Jqeikodoivm,weakness-UTI 2018 Hospitalization History rectal bleeding 01/25/19-01/29/19 Hospitalization History fractured femur 07/2019 Hospitalization History [facility] for 4 days for diverticulitis 2019 Hospitalization History anemia, weakness 01/25/2021 Hospitalization History dyspnea 02/14/2021 Hospitalization History Sepsis 02/22/21 - 1 Hospitalization History Left heel wound 03/2021 Hospitalization History Cellulitis 02/22/2021 Goals Section No Information Health Concerns No Information MEDICAL EQUIPMENT No Information MENTAL STATUS No Information FUNCTIONAL STATUS No Information ASSESSMENTS No Information PLAN OF TREATMENT Next Appt Details Provider Name:Rani Blas, 05-31 01:15:00 PM, [address] , , [place], [address], Provider Name:Imelda Art, 2 03:00:00 PM, [address], , [place], [address], Provider Name:Jessika Young, 02:30:00 PM, [address], , [place], [address], Insurance Providers Payer Name Payer Address Payer Phone Insured Name Patient Relati onship to Insured Coverage Start Date Coverage End Date MEDICARE Part A and B [address] [facility] [id number] [phone] ARBEN QUINTERO [facility] HEALTH CARE OPTIONS [facility] CLAIM DIV [address] [facility] [id number] ARBEN QUINTERO
--- OUTSIDE RECORDS SUMMARY | 2021-07-28 03:41 | CCD | Continuity of Care Document ---
Author Author [facility]is[facility] Organization Unknown Address [address] [place] [address], [address] [place] [address] Phone [phone] Care Team Providers Care Career And Technology Education Teacher Name Role Phone Zakia Joel AUTM [phone] Problems Active Problems Provider Date Type 2 [...] Available Procedures Date Code Description Status 06/12/2021 69482 Debridement 6-10 Nails Electric Completed 04/03/2021 17403 Office/Outpatient Established MDM 10-19 Min Completed 04/03/2021 04296 Debridement 6-10 Nails Electric Completed 03/23/2021 23179 Hospital Initial Care Level 3 Co mpleted 03/23/2021 75724 Debridement Skin/Tissue Complete d Medical Devices Description No Information Available Encounters Type Date Location Provider Dx Diagnosis Office Visit 04/03/2021 2:45p [facility] Estevan Banda DPM E11.621 Type 2 diabetes mellitus with foot ulcer L89.892 Pressure ulcer of other site , stage 2 B35.1 Tinea unguium E11.42 Type 2 diabetes mellitus wit h diabetic polyneuropathy Assessments Date Code Description Provider 06/12/2021 B35.1 Tinea unguium Estevan Banda DPM [...] ulcer of left heel, sta ge 2 Estevan Banda DPM Plan of Treatment Future Appointment(s):* 08/21/2021 2:45 pm - Estevan Banda DPM at [facility] Functional Status Description No Information Available Mental Status Description No Information Available Referrals Description No Information Available"
--- OUTSIDE RECORDS SUMMARY | 2021-07-28 03:41 | CCD | Continuity of Care Document ---
Author Author Elisabeth BANDA DPMat Organization Unknown Address [address] [place] [address], [address] [place] [address] Phone [phone] Care Team Providers Care Legal Administrator Name Role Phone Zakia Joel AUTM [phone] Problems Active Problems Provider Date Type 2 [...] Available Procedures Date Code Description Status 06/12/2021 21007 Debridement 6-10 Nails Electric Completed 04/03/2021 85062 Office/Outpatient Established MDM 10-19 Min Completed 04/03/2021 11033 Debridement 6-10 Nails Electric Completed 03/23/2021 16448 Hospital Initial Care Level 3 Co mpleted 03/23/2021 69707 Debridement Skin/Tissue Complete d Medical Devices Description No Information Available Encounters Type Date Location Provider Dx Diagnosis Office Visit 04/03/2021 2:45p [facility] Estevan Banda DPM E11.621 Type 2 [...] 2:45 pm - Estevan Banda DPM at [facility] Functional Status Description No Information Available Mental Status Description No Information Available Referrals Description No Information Available"
--- OUTSIDE RECORDS SUMMARY | 2021-07-28 03:41 | CCD ---
Author Author [facility] Organization [facility] Address Unknown Phone Unavailable Care Team Providers Care Route Delivery Clerk Name Role Phone Rani Blas Unavailable PROBLEMS Type Condition ICD9-CM Code [id number] Code Onset Dates Condition S tatus W/U Status Risk SNOMED Code Notes Problem Hypothyroidism, unspecified type E03.9 Active conf irmed 20162112 Problem Lipid screening Z13.220 Active confirmed 243 401330 Problem Anemia, unspecified type D64.9 Active confirmed 379034292 Problem Acquired hypothyroidism E03.9 Active confirmed 867706029 Problem Morbid obesity, unspecified obesity type E66.01 Active confirmed 818405047 Problem Hydronephrosis N13.30 Active confirmed 48693 006 Problem FPC current use of insulin Z79.4 Active conf irmed 846541550 Problem 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 Active confirmed 41 3101122 Problem 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 Active confirmed 98478554 Problem 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 Active confirmed 3 16484661 Problem Type 2 diabetes mellitus wit h complication, without long-term current use of insulin E11.8 Active confirmed 92385653 Problem Personal history of pulmonary embolism Z86.711 A ctive confirmed 348401312 Problem Postop check Z09 Active confirmed 6883157 07 Problem Preop testing Z01.818 Active confirmed 08695 9001 Problem History of bladder repair surgery Z98.890 Active confirmed 319374643 Problem Type 2 diabetes mellitus wit h complication, unspecified middle or intermediate school principal insulin use status E11.8 Active confirmed 669880412 Problem Malignant neoplasm of colon, unspecified part of colon C18.9 Active confirmed 307406164 Problem Essential hypertension I10 Active confirmed 00423983 Problem Urinary obstruction N13.9 Active confirmed 6942488 Problem 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 Active confirmed 90938404 Problem 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 Active confir med 46153139 Problem Frequent UTI N39.0 Active confirmed 1557964 5 Problem Urge incontinence of urine N39.41 Active confirmed 20246704 Problem Decubitus ulcer of left heel, stage 2 L89.622 Ac tive confirmed 399588104 Problem Combined hyperlipidemia E78.2 Active confirmed 910123156 Problem Pressure ulcer of left heel, stage 3 L89.623 Act raffy confirmed 187023043 Problem Hydronephrosis with ureteral stricture, not else where classified N13.1 Active confirmed 42525188 Problem Ureteral stricture, left N13.5 Active confirmed 52999333 Problem Urge incontinence N39.41 Active confirmed 87 188248 Problem Urgency of urination R39.15 Active confirmed 54214423 Problem Other urinary incontinence N39.498 Active confirmed 738013864 Problem Pressure ulcer of right heel, stage 2 L89.612 Ac tive confirmed 463618815 ALLERGIES Allergen (clinical drug ingredient) Drug/Non Drug Allergy do cumented on EMR Reaction Allergy Type Onset Date Status accupril dizzy Non Drug Allergy Active lisinopril Lisinopril(ND Code:[address]-85) DIZZY Drug Allergy Active aspirin Aspirin(ND Code:[address]-18) Anaphylaxis Drug Allergy Active Contrast Dye Itchy Non Drug Allergy Active ENCOUNTERS from 1950 to 2021-05-15 Encounter Location Date Provider Diagnosis [address] [phone] [place] [address] Apr, Rani Elmorery IMMUNIZATIONS Vaccine Route Administration Date [...] Education Language: Question Answer Notes Languages spoken: Persian Samaritan: Question Answer Notes Samaritan 21 Scientologist No voodoo beliefs that would impact health care. Sexual [...] Notes Start Da te End Date Status Amoxicillin-Pot Clavulanate 875-125 MG 1 tablet Orally every 12 hrs for 10 day(s) Not-Taking diphenhydrAMINE HCl 50 MG 1 capsule Orally 1 hour prio r to procedure for 1 day(s) February, Active Senna Lax 8.6 MG 2 tablets at bedtime as needed Orally On ce a day for 30 day(s) pt reports that she is using otc medication Active DiphenhydrAMINE HCl 25 mg 1 tablet Orally Once a day as needed for itching Not-Taking Gabapentin 300 MG 2 capsule Orally Daily for 90 day(s) Active Oxybutynin Chloride 5 MG 1 tablet Orally Twice a day for 30 day( s) Aug, Not-Taking Macrobid 100 MG 1 capsule at bedtime with food Orally Once a day Sep, Active hydrOXYzine HCl 25 MG 1 tablet as needed Orally every 8 hrs for 30 da y(s) Active Docusate Sodium 100 MG 1 capsule as needed Orally Once a day for 30 day(s) has not needed Active Doxycycline Monohydrate 100 MG 1 capsule Orally Twice a day Not-Taking Acetaminophen 500 MG 2 tablet as needed Orally every 6 hrs p t reports that she is not using 325 mg dose Not-Taking levoFLOXacin 250 MG 1 tablet Orally Once a day for 5 day(s) Jul, Not-Taking OneTouch Verio - 1 strip In Vitro daily Active Acetaminophen 325 MG 2 tablet as needed Orally every 4 hrs p t reports that she is using 500 mg acetaminophen Active HumaLOG KwikPen 100 UNIT/ML as directed Subcutaneous ac and hs f or 30 days Nov, Not-Taking Methadone HCl 5 MG 1 tablet Orally once daily in evening from [place] Jul, Not-Taking Cefdinir 300 MG as directed Orally bid for 10 day(s) p, 2019 Not-Taking Tucatinib 50 MG 5 tabs Orally Twice a day Not-Taking Bactrim DS 800-160 MG 1 tablet Orally _1 hour prior to cystoscop y Aug, Not-Taking Ondansetron 8 MG 1 tablet on the tongue and a llow to dissolve as needed Orally twice a day Active Oxybutynin Chloride ER 15 MG 1 tablet Orally Once a day for 30 d ay(s) Dec, Not-Taking hydroCHLOROthiazide 12.5 MG 1 capsule in the morning O rally Once a day for 90 day(s) duplicate Not-Taking Loperamide HCl 2 MG 1 capsule as needed Orally every 6 hours as needed has not needed Active Carvedilol 6.25 MG 1 tab Orally twice daily for 90 days Not-Taking Ondansetron 4 MG 1 tablet on the tongue and a llow to dissolve Orally every 4 hours prn pt reports that she is only taking 8 mg dose Not-Taking predniSONE 50 MG 1 tablet Orally Take 1 tab o n 02/16/21 at 2300 1 tab on 02/16/21 at 530 1 tab at 1130 for 1 day(s) February, N ot-Taking Simplicity Adult Brief 32"-44" - Change 1 brief ever 4 hours as needed Medium Size (Height 61.5" Weight 211 lb, Waist 34" and Hip 41") DX codes: N13.30, N13.1, N13.5 for 30 Days pharmacy and insurance will not honor this rx Oct, Not-Taking HYDROcodone-Acetaminophen 5-325 MG 1 tablet as needed Orally every 6 hrs Palliative Care Active MiraLax - as directed Orally Once a day for 90 day(s) has not needed Active Atorvastatin Calcium 10 MG 1 tablet Orally Once a day for 90 days Active Myrbetriq 50 MG 1 tablet Orally Once a day for 90 day(s) 2 6 Jan, 2021 Not-Taking Nystatin - as directed topically bid ap ply to abd folds, under breasts, and groin area pt reports that she is only using prn Jul, Active Tresiba FlexTouch 200 UNIT/ML 36 units Subcutaneous da annalise at bedtime for 30 Days Active Methadone HCl 5 MG 1 tablet Orally Once a day at bedtime, p t reports that she is only using this medication as needed Act raffy Levothyroxine Sodium 125 MCG 1 tablet on an empty stom ach in the morning Orally Once a day Apr, Active Tolterodine Tartrate ER 4 MG 1 capsule Orally Once a day for 30 day(s) Apr, Active Prochlorperazine 10 MG 1 tablet as needed Orally every 6 hours has not needed Not-Taking PROCEDURES No Information RESULTS No Results REASON FOR VISIT stopped detrol MEDICAL (GENERAL) HISTORY Type Description Date Medical [...] colon surgery 2013 Surgical History liver resection- [facility] 2015 Surgical History port implanted [...] thrive 01/2021 Hospitalization History Pulmonary embolus @ [facility] 07/2016 Hospitalization History Uretral stricture removal and reimpl antation 02/2018 Hospitalization History LEZ-OL-Afkdmcafudh,weakness-UTI 2018 Hospitalization History rectal bleeding 01/25/19-01/29/19 Hospitalization [...] PLAN OF TREATMENT Next Appt Details Provider Name:Alan Olivares, 11:15:00 AM, [address], , [place], [address], Provider Name:Imelda Art, 6 03:00:00 PM, [address], , [place], [address], Provider Name:Alan Olivares, 03:00:00 PM, [address], , [place], [address], Provider Name:Jessika Yonug, 01:30:00 PM, [address], , [place], [address], Provider Name:Rani Blas, 05-31 01:15:00 PM, [address] , , [place], [address], Insurance Providers Payer Name Payer Address Payer Phone Insured Name Patient Relati onship to Insured Coverage Start Date Coverage End Date [employer] OPTIONS [facility] CLAIM DIV [address] [facility] [id number] ARBEN QUINTERO MEDICARE Part A and B [address] [facility] [phone] ARBEN QUINTERO self
--- OUTSIDE RECORDS SUMMARY | 2021-07-28 03:41 | CCD ---
Author Author [facility] Organization [facility] Address Unknown Phone Unavailable Care Team Providers Care Criminal Profiler Name Role Phone Alan Olivares Unavailable PROBLEMS Type Condition ICD9-CM Code [id number] Code Onset Dates Condition S tatus W/U Status Risk SNOMED Code Notes Problem Hypothyroidism, unspecified type E03.9 Active conf irmed 26149462 Problem Lipid screening Z13.220 Active confirmed 243 533629 Problem Anemia, unspecified type D64.9 Active confirmed 166817823 Problem Acquired hypothyroidism E03.9 Active confirmed 584568437 Problem Morbid obesity, unspecified obesity type E66.01 Active confirmed 460049677 Problem Hydronephrosis N13.30 Active confirmed 76514 006 Problem senior care current use of insulin Z79.4 Active conf irmed 771165259 Problem 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 Active confirmed 41 3412657 Problem 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 Active confirmed 06790095 Problem 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 Active confirmed 3 81214752 Problem Type 2 diabetes mellitus wit h complication, without long-term current use of insulin E11.8 Active confirmed 73867892 Problem Personal history of pulmonary embolism Z86.711 A ctive confirmed 653115751 Problem Postop check Z09 Active confirmed 6100319 07 Problem Preop testing Z01.818 Active confirmed 19177 9001 Problem History of bladder repair surgery Z98.890 Active confirmed 900143608 Problem Type 2 diabetes mellitus wit h complication, 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 status E11.8 Active confirmed 018712467 Problem Malignant neoplasm of colon, unspecified part of colon C18.9 Active confirmed 885490128 Problem Essential hypertension I10 Active confirmed 73291543 Problem Urinary obstruction N13.9 Active confirmed 0441786 Problem 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 Active confirmed 10491650 Problem 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 Active confir med 82201557 Problem Frequent UTI N39.0 Active confirmed 1765475 5 Problem Urge incontinence of urine N39.41 Active confirmed 53013493 Problem Decubitus ulcer of left heel, stage 2 L89.622 Ac tive confirmed 866834637 Problem Combined hyperlipidemia E78.2 Active confirmed 081190546 Problem Pressure ulcer of left heel, stage 3 L89.623 Act raffy confirmed 886599876 Problem Hydronephrosis with ureteral stricture, not else where classified N13.1 Active confirmed 65017780 Problem Ureteral stricture, left N13.5 Active confirmed 68611286 Problem Urge incontinence N39.41 Active confirmed 87 504013 Problem Urgency of urination R39.15 Active confirmed 32222013 Problem Other urinary incontinence N39.498 Active confirmed 165522240 Problem Pressure ulcer of right heel, stage 2 L89.612 Ac tive confirmed 113274211 ALLERGIES Allergen (clinical drug ingredient) Drug/Non Drug Allergy do cumented on EMR Reaction Allergy Type Onset Date Status accupril dizzy Non Drug Allergy Active lisinopril Lisinopril(ND Code:[address]-64) DIZZY Drug Allergy Active aspirin Aspirin(ND Code:[address]-69) Anaphylaxis Drug Allergy Active Contrast Dye Itchy Non Drug Allergy Active ENCOUNTERS from 1950 to 2021-05-19 Encounter Location Date Provider Diagnosis [facility] [address] [phone] [place] [address] May, Alan Olivares Pressure ulcer of left heel, stage 3 L89.623 IMMUNIZATIONS Vaccine Route Administration Date Status COVID-19 [...] Education Language: Question Answer Notes Languages spoken: Kiswahili Jainism: Question Answer Notes Jainism 21 Voodoo No congregational beliefs that would impact health care. Sexual [...] FOR REFERRAL No Information VITAL SIGNS Weight 200 lbs May, Height 61.5 in May, BMI 37.17 kg/m2 May, Heart Rate 65 /min May, Respiratory Rate 18 /min May, Temperature 96.6 degrees Fahrenheit May, Oximetry 95 May, Blood pressure systolic 125 mm Hg May, Blood pressure diastolic 60 mm Hg May, MEDICATIONS Medication SIG (Take, Route, Frequency, Duration) Notes Start Da te End Date Status Macrobid 100 MG 1 cap Orally bid for 10 day(s) May, Active PROCEDURES from 1950 to 2021-05-19 Procedure Date Ordered Result Body Site Medication: 4% Lidocaine topical cream (Anecream) 5gm 2021-05-16 N/A RESULTS No Results REASON FOR VISIT Left heel wound MEDICAL (GENERAL) HISTORY Type Description Date Medical [...] colon surgery 2013 Surgical History liver resection- [facility] 2015 Surgical History port implanted 2013 Surgical [...] thrive 01/2021 Hospitalization History Pulmonary embolus @ [facility] 07/2016 Hospitalization History Uretral stricture removal and reimpl antation 02/2018 Hospitalization History XZR-ER-Iffncfrxuol,weakness-UTI 2018 Hospitalization History rectal bleeding 01/25/19-01/29/19 Hospitalization History fractured femur 07/2019 Hospitalization History [facility] for 4 days for diverticulitis 2019 Hospitalization History anemia, weakness 01/25/2021 Hospitalization History dyspnea 02/14/2021 Hospitalization History Sepsis 02/22/21 - 1 Hospitalization History Left heel wound 03/2021 Hospitalization History Cellulitis 02/22/2021 Goals Section No Information Health Concerns No Information MEDICAL EQUIPMENT No Information MENTAL STATUS No Information FUNCTIONAL STATUS No Information ASSESSMENTS Encounter Date Diagnosis Assessment Notes Treatment Notes Treatm ent Clinical Notes May, Pressure ulcer of left heel, stage 3 (ICD-10 - L 89.623) PLAN OF TREATMENT Medication Medication Name Sig Start Date Stop Date Macrobid 100 MG 1 cap Orally bid for 10 day(s) May, Next Appt Details 1 Week Reason: Provider Name:Alan Olivares, 03:00:00 PM, [address], , [place], [address], Provider Name:Jessika Young 01:30:00 PM, [address], , [place], [address], Provider Name:Alan Olivares 03:00:00 PM, [address], , [place], [address], Provider Name:Rani Blas, 05-31 01:15:00 PM, [address], , [place], [address], Insurance Providers Payer Name Payer Address Payer Phone Insured Name Patient Relati onship to Insured Coverage Start Date Coverage End Date [employer] C[employer] OPTIONS [facility] CLAIM DIV [address] [facility] [phone] ARBEN QUINTERO self MEDICARE Part A and B [address] [facility] [id number] ARBEN QUINTERO self
--- OUTSIDE RECORDS SUMMARY | 2021-07-28 03:41 | CCD | Continuity of Care Document ---
Author Author Elisabeth BANDA DPMat Organization Unknown Address [address] [place] [address], [address] [place] [address] Phone [phone] Care Team Providers Care Marzipan Molder Name Role Phone Zakia Joel AUTM [phone] Problems Active Problems Provider Date Type 2 [...] Available Procedures Date Code Description Status 06/12/2021 30152 Debridement 6-10 Nails Electric Completed 04/03/2021 80137 Office/Outpatient Established MDM 10-19 Min Completed 04/03/2021 41783 Debridement 6-10 Nails Electric Completed 03/23/2021 02437 Hospital Initial Care Level 3 Co mpleted 03/23/2021 24334 Debridement Skin/Tissue Complete d Medical Devices Description No Information Available Encounters Type Date Location Provider Dx Diagnosis Office Visit 04/03/2021 2:45p [facility] Estevan Banda DPM E11.621 Type 2 diabetes [...] 2:45 pm - Estevan Banda DPM at [facility] Functional Status Description No Information Available Mental Status Description No Information Available Referrals Description No Information Available"
--- OUTSIDE RECORDS SUMMARY | 2021-07-28 03:41 | CCD ---
Author Author [facility] Organization [facility] Address Unknown Phone Unavailable Care Team Providers Care Engineer Name Role Phone Imelda Art Unavailable PROBLEMS Type Condition ICD9-CM Code ICA46-RU Code Onset Dates Condition S tatus W/U Status Risk SNOMED Code Notes Problem Hypothyroidism, unspecified type E03.9 Active conf irmed 79039688 Problem Lipid screening Z13.220 Active confirmed 243 149653 Problem Anemia, unspecified type D64.9 Active confirmed 052716210 Problem Acquired hypothyroidism E03.9 Active confirmed 615397829 Problem Morbid obesity, unspecified obesity type E66.01 Active confirmed 302969164 Problem Hydronephrosis N13.30 Active confirmed 16834 006 Problem terminal superintendent current use of insulin Z79.4 Active conf irmed 887027435 Problem 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 Active confirmed 41 9279445 Problem 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 Active confirmed 32952408 Problem 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 Active confirmed 3 35015510 Problem Type 2 diabetes mellitus wit h complication, without long-term current use of insulin E11.8 Active confirmed 15742955 Problem Personal history of pulmonary embolism Z86.711 A ctive confirmed 152418201 Problem Postop check Z09 Active confirmed 2114022 07 Problem Preop testing Z01.818 Active confirmed 13311 9001 Problem History of bladder repair surgery Z98.890 Active confirmed 813999491 Problem Type 2 diabetes mellitus wit h complication, unspecified 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 use status E11.8 Active confirmed 251361755 Problem Malignant neoplasm of colon, unspecified part of colon C18.9 Active confirmed 638493871 Problem Essential hypertension I10 Active confirmed 95576553 Problem Urinary obstruction N13.9 Active confirmed 0630115 Problem 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 Active confirmed 47992623 Problem 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 Active confir med 48607000 Problem Frequent UTI N39.0 Active confirmed 6683209 5 Problem Urge incontinence of urine N39.41 Active confirmed 99212153 Problem Decubitus ulcer of left heel, stage 2 L89.622 Ac tive confirmed 082922366 Problem Combined hyperlipidemia E78.2 Active confirmed 744053033 Problem Pressure ulcer of left heel, stage 3 L89.623 Act raffy confirmed 452556224 Problem Hydronephrosis with ureteral stricture, not else where classified N13.1 Active confirmed 05304747 Problem Ureteral stricture, left N13.5 Active confirmed 13717781 Problem Urge incontinence N39.41 Active confirmed 87 889819 Problem Urgency of urination R39.15 Active confirmed 43645737 Problem Other urinary incontinence N39.498 Active confirmed 549652477 Problem Pressure ulcer of right heel, stage 2 L89.612 Ac tive confirmed 626508830 ALLERGIES Allergen (clinical drug ingredient) Drug/Non Drug Allergy do cumented on EMR Reaction Allergy Type Onset Date Status accupril dizzy Non Drug Allergy Active lisinopril Lisinopril(ND Code:[address]-19) DIZZY Drug Allergy Active aspirin Aspirin(ND Code:[address]-78) Anaphylaxis Drug Allergy Active Contrast Dye Itchy Non Drug Allergy Active ENCOUNTERS from 1950 to 2021-05-23 Encounter Location Date Provider Diagnosis [facility] [address] [phone] [place] [address] May, Imelda Art IMMUNIZATIONS Vaccine Route Administration Date Status COVID-19 [...] Education Language: Question Answer Notes Languages spoken: Italian Anglican: Question Answer Notes Anglican 21 Rastafari No catholic beliefs that would impact health care. Sexual [...] Information RESULTS No Results REASON FOR VISIT UTI MEDICAL (GENERAL) HISTORY Type Description Date Medical [...] colon surgery 2013 Surgical History liver resection- [facility] 2015 Surgical History port implanted 2013 Surgical [...] 01/2021 Hospitalization History Pulmonary embolus @ [facility] 07/2016 Hospitalization History Uretral stricture removal and reimpl antation 02/2018 Hospitalization History OVQ-ZG-Fexujgvjhkh,weakness-UTI 2018 Hospitalization History rectal bleeding 01/25/19-01/29/19 Hospitalization History fractured femur 07/2019 Hospitalization History [facility] for 4 days for diverticulitis 2019 [...] 05-31 01:15:00 PM, [address] , , [place], [address], Provider Name:Imelda Art, 2 03:00:00 PM, [address], , [place], [address], Provider Name:Jessika Young, 02:30:00 PM, [address], , [place], [address], Insurance Providers Payer Name Payer Address Payer Phone Insured Name Patient Relati onship to Insured Coverage Start Date Coverage End Date [employer] HE[employer] C[employer] OPTIONS [facility] CLAIM DIV [address] [facility] [phone] ARBEN QUINTERO MEDICARE Part A and B [address] [facility] [phone] ARBEN QUINTERO self
--- OUTSIDE RECORDS SUMMARY | 2021-07-28 03:41 | CCD ---
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 Active conf irmed 556001930 Problem Acquired hypothyroidism E03.9 Active confirmed 215971125 Problem Hydronephrosis with ureteral stricture, not else where classified N13.1 Active confirmed 63502525 Problem Hydronephrosis N13.30 Active confirmed 87296 006 Problem 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 Active confir med 82982655 Problem Personal history of pulmonary embolism Z86.711 A ctive confirmed 490130176 Problem 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 Active confirmed 41 7812594 Problem 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 Active confirmed 83106007 Problem Hypothyroidism, unspecified type E03.9 Active conf irmed 96310086 Problem Type 2 diabetes mellitus wit h complication, without long-term current use of insulin E11.8 Active confirmed 71918024 Problem Type 2 diabetes mellitus wit h complication, unspecified fdc insulin use status E11.8 Active confirmed 792914351 Problem Postop check Z09 Active confirmed 7193922 07 Problem Essential hypertension I10 Active confirmed 82646268 Problem History of bladder repair surgery Z98.890 Active confirmed 533293215 Problem 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 Active confirmed 77919335 Problem Malignant neoplasm of colon, unspecified part of colon C18.9 Active confirmed 645287543 Problem 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 Active confirmed 3 84998502 Problem Urinary obstruction N13.9 Active confirmed 8235022 Problem Frequent UTI N39.0 Active confirmed 2882071 5 Problem Urge incontinence of urine N39.41 Active confirmed 10150703 Problem Urge incontinence N39.41 Active confirmed 87 719743 Problem Pressure ulcer of left heel, stage 3 L89.623 Act raffy confirmed 891192014 Problem Ureteral stricture, left N13.5 Active confirmed 30095476 Problem Pressure ulcer of left heel, stage 2 L89.622 Act raffy confirmed 361583629 Problem Combined hyperlipidemia E78.2 Active confirmed 287249418 Problem Preop testing Z01.818 Active confirmed 01418 9001 Problem Urgency of urination R39.15 Active confirmed 63869671 Problem Other urinary incontinence N39.498 Active confirmed 382499291 Problem Pressure ulcer of right heel, stage 2 L89.612 Ac tive confirmed 899827206 Problem Decubitus ulcer of left heel, stage 2 L89.622 Ac tive confirmed 283428487 ALLERGIES Allergen (clinical drug ingredient) Drug/Non Drug Allergy do cumented on EMR Reaction Allergy Type Onset Date Status accupril dizzy Non Drug Allergy Active lisinopril Lisinopril(ND Code:[address]-80) DIZZY Drug Allergy Active aspirin Aspirin(ND Code:[address]-28) Anaphylaxis Drug Allergy Active Contrast Dye Itchy Non Drug Allergy Active ENCOUNTERS from 1950 to 2021-06-01 Encounter Location Date Provider Diagnosis [facility] Filemon Nirav [facility] [phone] [place] [address] 18 May, 2021 Rani Roopa Pressure ulcer of left heel, stage 2 L89 .622 ; Type 2 diabetes mellitus with complication, without long-term current use of insulin E11.8 ; Hypothyroidism, unspecified type E03.9 ; Malignant neoplasm of colon, unspecified part of colon C18.9 ; Essential hypertension I10 and Acute deep vein thrombosis (DVT) of femoral vein of left lower extremity I82.412 IMMUNIZATIONS Vaccine Route Administration Date Status COVID-19 [...] Education Language: Question Answer Notes Languages spoken: Yoruba Presybeterian: Question Answer Notes Presybeterian 21 Scientology No adventist beliefs that would impact health care. Sexual [...] FOR REFERRAL No Information VITAL SIGNS Weight 186.4 lbs May, Weight-kg 84.55 kg May, Height 61.5 in May, BMI 34.65 kg/m2 May, Heart Rate 83 /min May, Respiratory Rate 20 /min May, Temperature 97.8 degrees Fahrenheit May, Oximetry 94 May, MEDICATIONS Medication SIG (Take, Route, Frequency, Duration) Notes Start Da te End Date Status Atorvastatin Calcium 10 MG TAKE 1 TABLET BY MOUTH ONCE DAILY Oral Active Polyethylene Glycol 3350 17 GM/SCOOP DISSOLVE 17 GRAMS IN WATER AND DRINK BY MOUTH ONCE DAILY FOR CONSTIPATION Oral for 14 Active Tolterodine Tartrate ER 4 MG TAKE 1 CAPSULE BY MOUTH O NCE DAILY FOR 30 DAYS Oral for 30 Active Methadone HCl 5 MG 3 times per day Oral Active Levothyroxine Sodium 125 MCG TAKE 1 TABLET BY MOUTH ON CE DAILY IN THE MORNING ON AN EMPTY STOMACH Oral Active Hydrochlorothiazide 12.5 MG TAKE 1 CAPSULE BY MOUTH ON CE DAILY IN THE MORNING Oral Active Carvedilol 6.25 MG TAKE 1 TABLET BY MOUTH TWICE DAILY Oral for 90 Active Euthyrox 125 MCG TAKE 1 TABLET BY MOUTH ONCE DAILY IN THE MORNING ON AN EMPTY STOMACH Oral for 30 Not-Taking Amlodipine Besylate 5 MG TAKE 1 TABLET BY MOUTH ONCE DAILY Oral for 3 0 Not-Taking Gabapentin 300 MG TAKE 2 CAPSULES BY MOUTH ONCE DAILY Oral for 90 Active Tresiba FlexTouch 200 UNIT/ML INJECT 36 UNITS SUBCUTAN EOUSLY ONCE DAILY AT BEDTIME Subcutaneous Active levoFLOXacin 500 MG TAKE 1 TABLET BY MOUTH EVERY 48 HOURS (EVERY OTHER DAY) WITH A MEAL FOR 5 DAYS Oral for 6 Not -Taking HYDROcodone-Acetaminophen 5-325 MG (Schedule II Drug) TAKE 1 TO 2 TABLETS BY MOUTH EVERY 4 HOURS NEEDED FOR PAIN . DO NOT EXCEED 6 PER 24 HOURS Oral for 30 Active SM Stool Softener 100 MG TAKE 1 SOFTGEL BY MOUTH ONCE DAILY NEEDED FOR CONSTIPATION Oral for 30 Active Oxybutynin Chloride ER 15 MG TAKE 1 TABLET BY MOUTH ONCE DAILY Oral for 30 Active predniSONE 50 MG TAKE 1 TABLET BY MOUTH ON 02 15 21 AT 11 PM THEN TAKE 1 TABLET ON 02 16 2021 AT 530 AM THEN TAKE 1 TABLET AT 1130 AM Oral for 1 Not-Taking Bactrim DS 800-160 MG 1 tablet Orally Twice a day for 10 day(s) May, Active OneTouch Verio - USE 1 STRIP TO CHECK GLUCOSE TWICE DAILY In Vitro fo r 25 Active diphenhydrAMINE HCl 25 MG TAKE 2 CAPSULES BY MOUTH ONC E DAILY [address] SCAN. Oral for 1 Active EQ Allergy Relief 25 MG TAKE 2 TABLETS BY MOUTH ONE HOUR PRIOR TO PROCEDURE Oral for 1 Active Macrobid 100 MG 1 cap Orally bid for 10 day(s) May, Active PROCEDURES No Information RESULTS No Results REASON FOR VISIT 2 mo MEDICAL (GENERAL) HISTORY Type Description Date Medical [...] colon surgery 2013 Surgical History liver resection- [facility] 2015 Surgical History port implanted 2013 [...] thrive 01/2021 Hospitalization History Pulmonary embolus @ [facility] 07/2016 Hospitalization History Uretral stricture removal and reimpl antation 02/2018 Hospitalization History SRF-RJ-Ydphmjmikko,weakness-UTI 2018 Hospitalization History rectal bleeding 01/25/19-01/29/19 Hospitalization History fractured femur 07/2019 Hospitalization History [facility] for 4 days for diverticulitis 2019 [...] May, Pressure ulcer of left heel, stage 2 (ICD-10 - L 89.622) resolved. May, Type 2 diabetes mellitus wit h complication, without long-term current use of insulin (ICD-10 - E11.8) Patient advised to contact the office if her blood sugars continue to decline we will cut back on her insulin dosing. May, Hypothyroidism, unspecified type (ICD-10 - E03.9 ) May, Malignant neoplasm of colon, unspecified part of colon (ICD-10 - C18.9) Continue with oncology May, Essential hypertension (ICD-10 - I10) Stable BP May, Acute deep vein thrombosis ( DVT) of femoral vein of left lower extremity (ICD-10 - I82.412) s/p vascular consult: Fanny stockings bart. No surgical intervention advised. minimal pain and swelling at this time. PLAN OF TREATMENT Medication Medication Name Sig Start Date Stop Date Tresiba FlexTouch 200 UNIT/ML INJECT 36 UNITS SUBCUTAN EOUSLY ONCE DAILY AT BEDTIME Subcutaneous Hydrochlorothiazide 12.5 MG TAKE 1 CAPSULE BY MOUTH ON CE DAILY IN THE MORNING Oral Levothyroxine Sodium 125 MCG TAKE 1 TABLET BY MOUTH ON CE DAILY IN THE MORNING ON AN EMPTY STOMACH Oral Atorvastatin Calcium 10 MG TAKE 1 TABLET BY MOUTH ONCE DAILY Ora l Treatment Notes Assessment Notes Clinical Notes Pressure ulcer of left heel, stage 2 res olved. Type 2 diabetes mellitus with complicati on, without long-term current use of insulin Patient advised to contact t he office if her blood sugars continue to decline we will cut back on her insulin dosing. Malignant neoplasm of colon, unspecified part of colon Continue with oncology Essential hypertension Stable BP Acute deep vein thrombosis (DVT) of femoral vein of left low er extremity s/p vascular consult: Fanny stockmingo arriaga. No surgical intervention advised. minimal pain and swelling at this time. Next Appt Details 2 Months Reason: Provider Name:Imelda Art, 2 03:00:00 PM, [id number], , [place], [address], Provider Name:Jessika Young, 02:30:00 PM, [address], , [place], [address], Provider Name:Rani Blas, 2020-10 01:15:00 PM, [address], , [place], [address], Insurance Providers Payer Name Payer Address Payer Phone Insured Name Patient Relati onship to Insured Coverage Start Date Coverage End Date MEDICARE Part A and B [address] [facility] [phone] ARBEN QUINTERO [facility] CARE OPTIONS [place] CLAIM DIV [address] [facility] [phone] ARBEN QUINTERO
--- OUTSIDE RECORDS SUMMARY | 2021-07-28 03:41 | CCD | Continuity of Care Document ---
Author Author Elisabeth BANDA DPMat Organization Unknown Address [address] [place] [address], [address] [place] [address] Phone [phone] Care Team Providers Care Center Machine Operator Name Role Phone Zakia Joel AUTM [phone] Problems Active Problems Provider Date Type 2 [...] Information Available Procedures Date Code Description Status 04/03/2021 03611 Office/Outpatient Established SF MDM 10-19 Min Completed 04/03/2021 08562 Debridement 6-10 Nails Electric Completed 03/23/2021 06890 Hospital Initial Care Level 3 Co mpleted 03/23/2021 08101 Debridement Skin/Tissue Complete d Medical Devices Description No Information Available Encounters Type Date Location Provider Dx Diagnosis Office Visit 04/03/2021 2:45p [place] Estevan Banda DPM E11.621 Type 2 diabetes mellitus with foot ulcer L89.892 Pressure ulcer of other site , stage 2 B35.1 Tinea unguium E11.42 Type 2 diabetes mellitus wit h diabetic polyneuropathy Assessments Date Code Description Provider 04/03/2021 E11.621 Type 2 diabetes mellitus with [...] 2:45 pm - Estevan Banda DPM at [facility] Functional Status Description No Information Available Mental Status Description No Information Available Referrals Description No Information Available"
--- OUTSIDE RECORDS SUMMARY | 2021-07-28 03:41 | CCD ---
Author Author [facility] Organization [facility] Address Unknown Phone Unavailable Care Team Providers Care Health Care Social Worker Name Role Phone Imelda Art Unavailable PROBLEMS Type Condition ICD9-CM Code SVL66-RX Code Onset Dates Condition S tatus W/U Status Risk SNOMED Code Notes Problem Hypothyroidism, unspecified type E03.9 Active conf irmed 07998008 Problem Lipid screening Z13.220 Active confirmed 243 701324 Problem Anemia, unspecified type D64.9 Active confirmed 221835497 Problem Acquired hypothyroidism E03.9 Active confirmed 612945985 Problem Morbid obesity, unspecified obesity type E66.01 Active confirmed 417989997 Problem Hydronephrosis N13.30 Active confirmed 19975 006 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 Active conf irmed 694530431 Problem 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 Active confirmed 41 9630390 Problem 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 Active confirmed 53525375 Problem 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 Active confirmed 3 52076801 Problem Type 2 diabetes mellitus wit h complication, without long-term current use of insulin E11.8 Active confirmed 41729571 Problem Personal history of pulmonary embolism Z86.711 A ctive confirmed 690380570 Problem Postop check Z09 Active confirmed 3071390 07 Problem Preop testing Z01.818 Active confirmed 27106 9001 Problem History of bladder repair surgery Z98.890 Active confirmed 737029322 Problem Type 2 diabetes mellitus wit h complication, unspecified manager intermediate insulin use status E11.8 Active confirmed 794252137 Problem Malignant neoplasm of colon, unspecified part of colon C18.9 Active confirmed 645629710 Problem Essential hypertension I10 Active confirmed 91290719 Problem Urinary obstruction N13.9 Active confirmed 5418643 Problem 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 Active confirmed 90705382 Problem 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 Active confir med 62169311 Problem Frequent UTI N39.0 Active confirmed 3446749 5 Problem Urge incontinence of urine N39.41 Active confirmed 43572280 Problem Decubitus ulcer of left heel, stage 2 L89.622 Ac tive confirmed 885607058 Problem Combined hyperlipidemia E78.2 Active confirmed 947659761 Problem Pressure ulcer of left heel, stage 3 L89.623 Act raffy confirmed 705247475 Problem Hydronephrosis with ureteral stricture, not else where classified N13.1 Active confirmed 94087578 Problem Ureteral stricture, left N13.5 Active confirmed 02765950 Problem Urge incontinence N39.41 Active confirmed 87 707265 Problem Urgency of urination R39.15 Active confirmed 80246115 Problem Other urinary incontinence N39.498 Active confirmed 046630980 Problem Pressure ulcer of right heel, stage 2 L89.612 Ac tive confirmed 470664258 ALLERGIES Allergen (clinical drug ingredient) Drug/Non Drug Allergy do cumented on EMR Reaction Allergy Type Onset Date Status accupril dizzy Non Drug Allergy Active lisinopril Lisinopril(ND Code:[address]-99) DIZZY Drug Allergy Active aspirin Aspirin(ND Code:[address]-36) Anaphylaxis Drug Allergy Active Contrast Dye Itchy Non Drug Allergy Active ENCOUNTERS from 1950 to 2021-05-23 Encounter Location Date Provider Diagnosis [facility] [address] [phone] [place] [address] May, Imelda Art Urine malodor R82.90 IMMUNIZATIONS Vaccine Route Administration Date Status [...] Education Language: Question Answer Notes Languages spoken: Ugandan Sabianism: Question Answer Notes Sabianism 21 Anabaptist No caodaism beliefs that would impact health care. Sexual [...] Information RESULTS No Results REASON FOR VISIT incontinence MEDICAL (GENERAL) HISTORY Type Description Date [...] colon surgery 2013 Surgical History liver resection- [facility] 2015 Surgical History port implanted 2013 [...] thrive 01/2021 Hospitalization History Pulmonary embolus @ [facility] 07/2016 Hospitalization History Uretral stricture removal and reimpl antation 02/2018 Hospitalization History PTG-EL-Rbsfqqwqgcg,weakness-UTI 2018 Hospitalization History rectal bleeding 01/25/19-01/29/19 Hospitalization History fractured femur 07/2019 Hospitalization History [facility] for 4 days for diverticulitis 2019 [...] Treatment Notes Treatm ent Clinical Notes May, Urine malodor (ICD-10 - R82.90) PLAN OF TREATMENT Treatment Notes Test Name Order Date uro INSERT TEMP BLADDER CATH 2021-05-19 Future Test Test Name Order Date URINE CULTURE [id number] UA URINALYSIS [id number] Next Appt Details Provider Name:Rani Blas, 05-31 01:15:00 PM, [address] , , [place], [address], Provider Name:Imelda Art, 2 03:00:00 PM, [address], , [place], [address], Provider Name:Jessika Young, 02:30:00 PM, [address], , [place], [address], Insurance Providers Payer Name Payer Address Payer Phone Insured Name Patient Relati onship to Insured Coverage Start Date Coverage End Date [facility] OPTIONS [facility] CLAIM DIV [address] [facility] [phone] ARBEN QUINTERO MEDICARE Part A and B [address] [facility] [phone] [phone] ARBEN QUINTERO self
--- OUTSIDE RECORDS SUMMARY | 2021-07-28 03:41 | CCD ---
Author Author [facility] Organization [facility] Address Unknown Phone Unavailable Care Team Providers Care Loss Prevention Research Engineer Name Role Phone Alan Olivares Unavailable PROBLEMS Type Condition ICD9-CM Code MSG10-CZ Code Onset Dates Condition S tatus W/U Status Risk SNOMED Code Notes Problem Hypothyroidism, unspecified type E03.9 Active conf irmed 70455153 Problem Lipid screening Z13.220 Active confirmed 243 819030 Problem Anemia, unspecified type D64.9 Active confirmed 634155299 Problem Acquired hypothyroidism E03.9 Active confirmed 027107980 Problem Morbid obesity, unspecified obesity type E66.01 Active confirmed 582471637 Problem Hydronephrosis N13.30 Active confirmed 37226 006 Problem assisted current use of insulin Z79.4 Active conf irmed 907595269 Problem 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 Active confirmed 41 9423676 Problem 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 Active confirmed 96429310 Problem 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 Active confirmed 3 74573816 Problem Type 2 diabetes mellitus wit h complication, without long-term current use of insulin E11.8 Active confirmed 68353567 Problem Personal history of pulmonary embolism Z86.711 A ctive confirmed 720634562 Problem Postop check Z09 Active confirmed 9974193 07 Problem Preop testing Z01.818 Active confirmed 72893 9001 Problem History of bladder repair surgery Z98.890 Active confirmed 068489309 Problem Type 2 diabetes mellitus wit h complication, unspecified intermediate card tender insulin use status E11.8 Active confirmed 798766881 Problem Malignant neoplasm of colon, unspecified part of colon C18.9 Active confirmed 966724203 Problem Essential hypertension I10 Active confirmed 22674280 Problem Urinary obstruction N13.9 Active confirmed 9506441 Problem 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 Active confirmed 67079027 Problem 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 Active confir med 53670054 Problem Frequent UTI N39.0 Active confirmed 3194057 5 Problem Urge incontinence of urine N39.41 Active confirmed 22829735 Problem Decubitus ulcer of left heel, stage 2 L89.622 Ac tive confirmed 551556223 Problem Combined hyperlipidemia E78.2 Active confirmed 207436362 Problem Pressure ulcer of left heel, stage 3 L89.623 Act raffy confirmed 844421676 Problem Hydronephrosis with ureteral stricture, not else where classified N13.1 Active confirmed 79868650 Problem Ureteral stricture, left N13.5 Active confirmed 07765013 Problem Urge incontinence N39.41 Active confirmed 87 948901 Problem Urgency of urination R39.15 Active confirmed 37693473 Problem Other urinary incontinence N39.498 Active confirmed 995756307 Problem Pressure ulcer of right heel, stage 2 L89.612 Ac tive confirmed 403217651 ALLERGIES Allergen (clinical drug ingredient) Drug/Non Drug Allergy do cumented on EMR Reaction Allergy Type Onset Date Status accupril dizzy Non Drug Allergy Active lisinopril Lisinopril(ND Code:[address]-58) DIZZY Drug Allergy Active aspirin Aspirin(ND Code:[address]-48) Anaphylaxis Drug Allergy Active Contrast Dye Itchy Non Drug Allergy Active ENCOUNTERS from 1950 to 2021-05-26 Encounter Location Date Provider Diagnosis [facility] Wound Care [address] [phone] [place] [address] 10 May, 2021 Alan Olivares Pressure ulcer of left heel, [...] Education Language: Question Answer Notes Languages spoken: Welsh Sikh: Question Answer Notes Sikh 21 Restorationism No orthodox beliefs that would impact health care. Sexual [...] May, BMI 37.17 kg/m2 May, Heart Rate 88 /min May, Respiratory Rate 18 /min May, Temperature 99.4 degrees Fahrenheit May, Oximetry 98 May, Blood pressure systolic 123 mm Hg May, Blood pressure diastolic 58 mm Hg May, MEDICATIONS Medication SIG (Take, Route, Frequency, Duration) Notes Start Da te End Date Status Macrobid 100 MG 1 cap Orally bid for 10 day(s) May, Active Bactrim DS 800-160 MG 1 tablet Orally Twice a day for 10 day(s) May, Active PROCEDURES No Information RESULTS No Results REASON FOR VISIT Left [...] colon surgery 2013 Surgical History liver resection- [facility] 2015 Surgical History port implanted [...] thrive 01/2021 Hospitalization History Pulmonary embolus @ [facility] 07/2016 Hospitalization History Uretral stricture removal and reimpl antation 02/2018 Hospitalization History XEI-NG-Ozzlzsonssb,weakness-UTI 2018 Hospitalization History rectal bleeding 01/25/19-01/29/19 Hospitalization History fractured femur 07/2019 Hospitalization History [facility] for 4 days for diverticulitis [...] heel, stage 3 (ICD-10 - L 89.623) Patient cautioned not to use her feet to propel her wheelchair when using the wheelchair. Signs and symptoms of recurrent problem explained such as but not limited to wound drainage erythema crusting localized pain or tenderness. If any of these should occur she should contact our wound care center for reevaluation and treatment. Support stockings are indicated and she should utilize them along with mild Trendelenburg position of her bed. PLAN OF TREATMENT Treatment Notes Assessment Notes Clinical Notes Pressure ulcer of left heel, stage 3 Pat ient cautioned not to use her feet to propel her wheelchair when using the wheelchair. Signs and symptoms of recurrent problem explained such as but not limited to wound drainage erythema crusting localized pain or tenderness. If any of these should occur she should contact our wound care center for reevaluation and treatment. Support stockings are indicated and she should utilize them along with mild Trendelenburg position of her bed. Next Appt Details prn Reason: Provider Name:Rani Blas, 05-31 01:15:00 PM, [address], , [place], [address], Provider Name:Imelda Art, 2 03:00:00 PM, [address], , [place], [address], Provider Name:Jessika Young, 02:30:00 PM, [address], , [place], [address], Insurance Providers Payer Name Payer Address Payer Phone Insured Name Patient Relati onship to Insured Coverage Start Date Coverage End Date [employer] OPTIONS [facility] CLAIM DIV [address] [facility] [phone] ARBEN QUINTERO MEDICARE Part A and B [address] [facility] [phone] ARBEN QUINTERO
--- OUTSIDE RECORDS SUMMARY | 2021-07-28 03:41 | CCD | Continuity of Care Document ---
Author Author Elisabeth BANDA DPMat Organization Unknown Address [address] [place] [address], [address] [place] [address] Phone [phone] Care Team Providers Care Clinical Appeals Rn Name Role Phone Zakia Joel AUTM [phone] Problems Active Problems Provider Date Type 2 [...] Available Procedures Date Code Description Status 04/03/2021 78332 Office/Outpatient Established SF MDM 10-19 Min Completed 04/03/2021 32771 Debridement 6-10 Nails Electric Completed 03/23/2021 30146 Hospital Initial Care Level 3 Co mpleted 03/23/2021 62759 Debridement Skin/Tissue Complete d Medical Devices Description No Information Available Encounters Type Date Location Provider Dx Diagnosis Office Visit 04/03/2021 2:45p [facility] Estevan Banda DPM E11.621 Type 2 [...] 2:45 pm - Estevan Banda DPM at [facility] Functional Status Description No Information Available Mental Status Description No Information Available Referrals Description No Information Available"
--- OUTSIDE RECORDS SUMMARY | 2021-07-28 03:41 | CCD ---
Author Author [facility] Organization [facility] Address Unknown Phone Unavailable Care Team Providers Care Classer Name Role Phone Rani Blas Unavailable PROBLEMS Type Condition ICD9-CM Code MYF67-DO Code Onset Dates Condition S tatus W/U Status Risk SNOMED Code Notes Problem Hypothyroidism, unspecified type E03.9 Active conf irmed 03468562 Problem Lipid screening Z13.220 Active confirmed 243 289242 Problem Anemia, unspecified type D64.9 Active confirmed 558075838 Problem Acquired hypothyroidism E03.9 Active confirmed 925998631 Problem Morbid obesity, unspecified obesity type E66.01 Active confirmed 823911979 Problem Hydronephrosis N13.30 Active confirmed 21666 006 Problem halfway current use of insulin Z79.4 Active conf irmed 161774616 Problem 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 Active confirmed 41 1539095 Problem 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 Active confirmed 95278065 Problem 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 Active confirmed 3 43169880 Problem Type 2 diabetes mellitus wit h complication, without long-term current use of insulin E11.8 Active confirmed 45235596 Problem Personal history of pulmonary embolism Z86.711 A ctive confirmed 469087326 Problem Postop check Z09 Active confirmed 9644725 07 Problem Preop testing Z01.818 Active confirmed 32186 9001 Problem History of bladder repair surgery Z98.890 Active confirmed 081046572 Problem Type 2 diabetes mellitus wit h complication, unspecified termination clerk insulin use status E11.8 Active confirmed 661125270 Problem Malignant neoplasm of colon, unspecified part of colon C18.9 Active confirmed 692310805 Problem Essential hypertension I10 Active confirmed 08202135 Problem Urinary obstruction N13.9 Active confirmed 7601560 Problem 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 Active confirmed 66048974 Problem 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 Active confir med 51498375 Problem Frequent UTI N39.0 Active confirmed 6010427 5 Problem Urge incontinence of urine N39.41 Active confirmed 47118400 Problem Decubitus ulcer of left heel, stage 2 L89.622 Ac tive confirmed 619087673 Problem Combined hyperlipidemia E78.2 Active confirmed 638183205 Problem Pressure ulcer of left heel, stage 3 L89.623 Act raffy confirmed 975558743 Problem Hydronephrosis with ureteral stricture, not else where classified N13.1 Active confirmed 69879841 Problem Ureteral stricture, left N13.5 Active confirmed 07315260 Problem Urge incontinence N39.41 Active confirmed 87 849393 Problem Urgency of urination R39.15 Active confirmed 80334549 Problem Other urinary incontinence N39.498 Active confirmed 689875765 Problem Pressure ulcer of right heel, stage 2 L89.612 Ac tive confirmed 041136584 ALLERGIES Allergen (clinical drug ingredient) Drug/Non Drug Allergy do cumented on EMR Reaction Allergy Type Onset Date Status accupril dizzy Non Drug Allergy Active lisinopril Lisinopril(ND Code:[address]-45) DIZZY Drug Allergy Active aspirin Aspirin(ND Code:[address]-82) Anaphylaxis Drug Allergy Active Contrast Dye Itchy Non Drug Allergy Active ENCOUNTERS from 1950 to 2021-05-22 Encounter Location Date Provider Diagnosis [address] [phone] [place] [address] May, Rani Elmorery IMMUNIZATIONS Vaccine Route Administration Date [...] Education Language: Question Answer Notes Languages spoken: Icelandic Anglican: Question Answer Notes Anglican 21 Temple No orthodox beliefs that would impact health [...] Notes Start Da te End Date Status Bactrim DS 800-160 MG 1 tablet Orally Twice a day for 10 day(s) May, Active Macrobid 100 MG 1 cap Orally bid for 10 day(s) May, Active PROCEDURES No Information RESULTS No Results REASON FOR VISIT bm/ urine MEDICAL (GENERAL) HISTORY Type Description Date Medical [...] colon surgery 2013 Surgical History liver resection- [facility] 2015 Surgical History port implanted 2013 [...] thrive 01/2021 Hospitalization History Pulmonary embolus @ [facility] 07/2016 Hospitalization History Uretral stricture removal and reimpl antation 02/2018 Hospitalization History SQF-JA-Vnywjdntniq,weakness-UTI 2018 Hospitalization History rectal bleeding 01/25/19-01/29/19 Hospitalization History fractured femur 07/2019 Hospitalization History [facility] for 4 days for diverticulitis 2019 Hospitalization History anemia, weakness 01/25/2021 Hospitalization History dyspnea 02/14/2021 Hospitalization History Sepsis 02/22/21 - 1 Hospitalization History Left heel wound 03/2021 Hospitalization History Cellulitis 02/22/2021 Goals Section No Information Health Concerns No Information MEDICAL EQUIPMENT No Information MENTAL STATUS No Information FUNCTIONAL STATUS No Information ASSESSMENTS No Information PLAN OF TREATMENT Medication Medication Name Sig Start Date Stop Date Bactrim DS 800-160 MG 1 tablet Orally Twice a day for 10 day(s) May, Macrobid 100 MG 1 cap Orally bid for 10 day(s) May, Next Appt Details Provider Name:Alan Olivares, 03:00:00 PM, [address], , [place], [address], Provider Name:Alan Olivares, 03:00:00 PM, [address], , [place], [address], Provider Name:Rani Blas, 05-31 01:15:00 PM, [address] , , [place], [address], Provider Name:Imelda Art, 2 03:00:00 PM, [address], , [place], [address], Provider Name:Jessika Young, 02:30:00 PM, [address], , [place], [address], Insurance Providers Payer Name Payer Address Payer Phone Insured Name Patient Relati onship to Insured Coverage Start Date Coverage End Date MEDICARE Part A and B [address] [facility] [id number] [phone] ARBEN QUINTERO [facility] OPTIONS [facility] [address] [facility] [id number] ARBEN QUINTERO self
--- OUTSIDE RECORDS SUMMARY | 2021-07-28 03:41 | CCD | Summary of Care ---
Author Author [facility] Address Unknown Phone Unavailable Care Team Providers Care Blood Bank Technician Name Role Phone PCP Unavailable Encounter Details Care Team Description Date Type Department 05/25/2021 [facility] Clinical Encounter Pathology at [place] [address] [place] [address] Allergies Not on Filedocumented as of this encounter (statuses as of 05/27/2021) Medications Not on filedocumented as of this encounter (statuses as of 05/27/2021) Active Problems Not on filedocumented as of this encounter (statuses as of 05/27/2021) Immunizations Name Administration Dates Next Due documented as of this encounter Social History Date Tobacco Use Types Packs/Day Years Used Never Assessed Sex Assigned at Date Recorded Not on file documented as of this encounter Last Filed Vital Signs Not on filedocumented in this encounter Plan of Treatment Care Team Description Date Type Specialty Lissa Tilley MD [address] [address] [phone] 06/13/2021 Office Visit Vascular Surgery Date/Time Name Type Priority Associated Diag noses 05/26/2021 2:31 PM EDT Hematopathology Pathology and Routine Cytology 05/26/2021 2:48 PM EDT Cytogenetics Oncology, Pathology and Routine Blood and Bone Marrow Cytology Order Schedule Name Type Priority Associated Diag noses Once for 1 Occurrences starting 05/25/20 until 05/25/2021 Hematopathology Pathology and Routine Cytology Once for 1 Occurrences starting 05/25/20 21 until 05/25/2021 Cytogenetics Oncology, Pathology and Routine Blood and Bone Marrow Cytology Health Maintenance Due Date Last Done Comments Hepatitis C Screening (B. 1950 0559-0083) MMR Vaccines (1 of - 1951 Standard series) Varicella Vaccines (1 of 1951 2 - 2-dose childhood series) DTaP,Tdap,and Td Vaccines 1956 (1 - Tdap) Breast Cancer Screening 2 1999 years Colon Cancer Screening 10 1999 yrs Zoster Vaccines (1 of 2) 1999 Osteoporosis Screening 2 2014 yr Pneumococcal Vaccine: 65+ 2014 Years (1 of 1 - PPSV23) Influenza Vaccine 07/14/2021 07/14/2019, 08/13/2018, 07/31/2017, Additional history exists COVID-19 Vaccine Completed 12/18/2020, 11/20/2020 HIB Vaccines Aged Out No longer eligible based on patient's age to complete this topic Hepatitis A Vaccines Aged Out No longer eligibl e based on patient's age to complete this topic Hepatitis B Vaccines Aged Out No longer eligibl e based on patient's age to complete this topic IPV Vaccines Aged Out No longer eligible based on patient's age to complete this topic Pneumococcal Vaccine: Aged Out No longer eligib le based on patient's age to Pediatrics (0 to 5 Years) complete this topic and At-Risk Patients (6 to 64 Years) documented as of this encounter Results Not on filedocumented in this encounter
--- OUTSIDE RECORDS SUMMARY | 2021-07-28 03:41 | CCD | Continuity of Care Document ---
Author Author Elisabeth CASTELLANOS M.D. Organization Unknown Address [address] [place] [address] Phone [phone] Care Team Providers Care Tank Maker Wood Name Role Phone RoopaJenniferJaniya Allie AUTM Problems Active Problems Provider Date Deep venous thrombosis of lower extremity Rex Barfield Onset: 05/12/2021 Hyperlipidemia Jose Francisco Castellanos M.D. Onset: 05/12/2021 Pulmonary embolism Jose Francisco Castellanos M.D. Onset: 05/12/2021 Essential hypertension Jose Francisco Castellanos M.D. Onset: Disorder of thyroid gland Jose Francisco Castellanos M.D. Onset: 2020 Social History Type Date Description Comments Sex Unknown ETOH Use Rarely consumes alcohol 1 or 2 d rinks a year Tobacco Use Start: Unknown End: Unknown Patient is a former smoker Quit 10 years ago Smoking Status Reviewed: 05/18/21 Patient is a former smoker Qu it 10 years ago Allergies, Adverse Reactions, Alerts Active Allergies Reaction Severity Comments Date Aspirin Anaphylaxis 05/12/2021 Lisinopril Dizziness 05/12/2021 Accupril Dizziness 05/12/2021 Contrast Dye Itching 05/12/2021 Medications Active Medications SIG Qnty Indications Ordering Provide r Date Atorvastatin Calcium 10mg Tablets 1 tab by mouth every day Unknown Levothyroxine Sodium 125mcg Tablet s 1 tab by mouth every day Unknown Methadone HCL 5mg Tablets bid Unknown Macrobid 100mg Capsules 1 by mouth at bedtime Unknown Gabapentin 300mg Capsules 2 caps by mouth once a day Unknown Hydrocodone-Acetaminophen 5-325mg Tablets 1 tablet by mouth every 6 hours as needed for pain Unknown Tresiba 100Unit/ML Solution 36 units daily Unknown Immunizations Description No Information Available Vital Signs Date Vital Result Comment 05/18/2021 10:44am BP Systolic Right Arm 130 mmHg BP Diastolic Right Arm 82 mmHg Heart Rate 64 /min Body Temperature 96.2 F Height 62 inches 5'2" Weight 190.00 lb Weight 86.184 kg BMI (Body Mass Index) 34.7 kg/m2 Results Description No Information Available Procedures Description No Information Available Medical Devices Description No Information Available Encounters Type Date Location Provider Dx Diagnosis Office Visit 05/18/2021 11:00a Main Office Jose Francisco Castellanos M.D. Z86.7 18 Personal history of other venous thrombosis and embolism R60.0 Localized edema Assessments Date Code Description Provider 05/18/2021 Z86.718 Personal history of other venous thrombosis and embolism Jose Francisco Castellanos M.D. 05/18/2021 R60.0 Localized edema Jose Francisco Castellanos M.D. Plan of Treatment 05/18/2021 - Jose Francisco Castellanos M.D.* Z86.718 Personal history of other venous thrombosis and embolism * R60.0 Localized edema * * Follow up:* PRN Functional Status Description No Information Available Mental Status Description No Information Available Referrals Description No Information Available
--- OUTSIDE RECORDS SUMMARY | 2021-07-28 03:42 | CCD ---
Author Author [facility] Organization [facility] Address Unknown Phone Unavailable Care Team Providers Care Trail Maintenance Worker Name Role Phone Rani Blas Unavailable PROBLEMS Type Condition ICD9-CM Code QUS18-MV Code Onset Dates Condition S tatus W/U Status Risk SNOMED Code Notes Problem Hypothyroidism, unspecified type E03.9 Active conf irmed 53720323 Problem Lipid screening Z13.220 Active confirmed 243 019112 Problem Anemia, unspecified type D64.9 Active confirmed 107462924 Problem Acquired hypothyroidism E03.9 Active confirmed 255187755 Problem Morbid obesity, unspecified obesity type E66.01 Active confirmed 996329898 Problem Hydronephrosis N13.30 Active confirmed 84424 006 Problem skilled nursing current use of insulin Z79.4 Active conf irmed 650890218 Problem 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 Active confirmed 41 7459212 Problem 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 Active confirmed 48738947 Problem 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 Active confirmed 3 14471678 Problem Type 2 diabetes mellitus wit h complication, without long-term current use of insulin E11.8 Active confirmed 88750087 Problem Personal history of pulmonary embolism Z86.711 A ctive confirmed 290696796 Problem Postop check Z09 Active confirmed 2854347 07 Problem Preop testing Z01.818 Active confirmed 04455 9001 Problem History of bladder repair surgery Z98.890 Active confirmed 680020813 Problem Type 2 diabetes mellitus wit h complication, unspecified termite treater helper insulin use status E11.8 Active confirmed 581747944 Problem Malignant neoplasm of colon, unspecified part of colon C18.9 Active confirmed 548502458 Problem Essential hypertension I10 Active confirmed 89372312 Problem Urinary obstruction N13.9 Active confirmed 9056846 Problem 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 Active confirmed 67206258 Problem 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 Active confir med 96025167 Problem Frequent UTI N39.0 Active confirmed 3228268 5 Problem Urge incontinence of urine N39.41 Active confirmed 87510884 Problem Decubitus ulcer of left heel, stage 2 L89.622 Ac tive confirmed 245723630 Problem Combined hyperlipidemia E78.2 Active confirmed 431058306 Problem Pressure ulcer of left heel, stage 3 L89.623 Act raffy confirmed 818159859 Problem Hydronephrosis with ureteral stricture, not else where classified N13.1 Active confirmed 40105038 Problem Ureteral stricture, left N13.5 Active confirmed 21868666 Problem Urge incontinence N39.41 Active confirmed 87 602559 Problem Urgency of urination R39.15 Active confirmed 92857748 Problem Other urinary incontinence N39.498 Active confirmed 885939954 Problem Pressure ulcer of right heel, stage 2 L89.612 Ac tive confirmed 989667905 ALLERGIES Allergen (clinical drug ingredient) Drug/Non Drug Allergy do cumented on EMR Reaction Allergy Type Onset Date Status accupril dizzy Non Drug Allergy Active lisinopril Lisinopril(ND Code:[address]-71) DIZZY Drug Allergy Active aspirin Aspirin(ND Code:[address]-57) Anaphylaxis Drug Allergy Active Contrast Dye Itchy Non Drug Allergy Active ENCOUNTERS from 1950 to 2021-05-04 Encounter Location Date Provider Diagnosis [place] [address] [facility] [phone] [place] [address] Apr, Rani Elmorery IMMUNIZATIONS Vaccine Route Administration [...] Education Language: Question Answer Notes Languages spoken: Maltese Nondenominational: Question Answer Notes Nondenominational 21 Orthodox No church beliefs that would impact health care. Sexual [...] Notes Start Da te End Date Status Tucatinib 50 MG 5 tabs Orally Twice a day Not-Taking Prochlorperazine 10 MG 1 tablet as needed Orally every 6 hours Not-Taking Oxybutynin Chloride ER 15 MG 1 tablet Orally Once a day for 30 d ay(s) Dec, Not-Taking OneTouch Verio - 1 strip In Vitro daily Active Tolterodine Tartrate ER 4 MG 1 capsule Orally Once a day for 30 day(s) Apr, Active predniSONE 50 MG 1 tablet Orally Take 1 tab o n 02/16/21 at 2300 1 tab on 02/16/21 at 530 1 tab at 1130 for 1 day(s) February, N ot-Taking Methadone HCl 5 MG 1 tablet Orally once daily in evening 2 4 Jul, 2019 Not-Taking Acetaminophen 325 MG 2 tablet as needed Orally every 4 hrs Active hydroCHLOROthiazide 12.5 MG 1 capsule in the morning O rally Once a day for 90 day(s) Not-Taking hydrOXYzine HCl 25 MG 1 tablet as needed Orally every 8 hrs for 30 da y(s) Active Doxycycline Monohydrate 100 MG 1 capsule Orally Twice a day Not-Taking Ondansetron 4 MG 1 tablet on the tongue and a llow to dissolve Orally every 4 hours prn Not-Taking Amoxicillin-Pot Clavulanate 875-125 MG 1 tablet Orally every 12 hrs for 10 day(s) Not-Taking Simplicity Adult Brief 32"-44" - Change 1 brief ever 4 hours as needed Medium Size (Height 61.5" Weight 211 lb, Waist 34" and Hip 41") DX codes: N13.30, N13.1, N13.5 for 30 Days Oct, Not-Mickey ing diphenhydrAMINE HCl 50 MG 1 capsule Orally 1 hour prio r to procedure for 1 day(s) February, Active Docusate Sodium 100 MG 1 capsule as needed Orally Once a day for 30 day(s) Active Carvedilol 6.25 MG 1 tab Orally twice daily for 90 days Not-Taking DiphenhydrAMINE HCl 25 mg 1 tablet Orally Once a day as needed for itching Not-Taking HumaLOG KwikPen 100 UNIT/ML as directed Subcutaneous ac and hs f or 30 days Nov, Not-Taking Senna Lax 8.6 MG 2 tablets at bedtime as needed Orally On ce a day for 30 day(s) Active Cefdinir 300 MG as directed Orally bid for 10 day(s) 2019 Not-Taking Levothyroxine Sodium 125 MCG 1 tablet on an empty stom ach in the morning Orally Once a day Apr, Active MiraLax - as directed Orally Once a day for 90 day(s) Active Gabapentin 300 MG 2 capsule Orally Daily for 90 day(s) Active Macrobid 100 MG 1 capsule at bedtime with food Orally Once a day Sep, Active levoFLOXacin 250 MG 1 tablet Orally Once a day for 5 day(s) Jul, Not-Taking Acetaminophen 500 MG 2 tablet as needed Orally every 6 hrs Not-Taking HYDROcodone-Acetaminophen 5-325 MG 1 tablet as needed Orally every 6 hrs Active Myrbetriq 50 MG 1 tablet Orally Once a day for 90 day(s) 2 Jan, Not-Taking Methadone HCl 5 MG 1 tablet Orally Once a day Active Oxybutynin Chloride 5 MG 1 tablet Orally Twice a day for 30 day( s) Aug, Not-Taking Bactrim DS 800-160 MG 1 tablet Orally _1 hour prior to cystoscop y Aug, Not-Taking Tresiba FlexTouch 200 UNIT/ML 36 units Subcutaneous da annalise at bedtime for 30 Days Active Nystatin - as directed topically bid ap ply to abd folds, under breasts, and groin area Jul, Active Atorvastatin Calcium 10 MG 1 tablet Orally Once a day for 90 days Active Ondansetron 8 MG 1 tablet on the tongue and a llow to dissolve as needed Orally twice a day Active Loperamide HCl 2 MG 1 capsule as needed Orally every 6 hours as neede d Active PROCEDURES No Information RESULTS No Results REASON FOR VISIT msg/call back MEDICAL (GENERAL) HISTORY Type Description Date Medical [...] colon surgery 2013 Surgical History liver resection- [facility] 2015 Surgical History port implanted [...] thrive 01/2021 Hospitalization History Pulmonary embolus @ [facility] 07/2016 Hospitalization History Uretral stricture removal and reimpl antation 02/2018 Hospitalization History DIJ-GS-Upjfljstnmg,weakness-UTI 2018 Hospitalization History rectal bleeding 01/25/19-01/29/19 Hospitalization History fractured femur 07/2019 Hospitalization History [facility] for 4 days for diverticulitis 2019 Hospitalization History anemia, weakness 01/25/2021 Hospitalization History dyspnea 02/14/2021 Hospitalization History Sepsis 02/22/21 - 1 Hospitalization History Left heel wound 03/2021 Hospitalization History Cellulitis 02/22/2021 Goals Section No Information Health Concerns No Information MEDICAL EQUIPMENT No Information MENTAL STATUS No Information FUNCTIONAL STATUS No Information ASSESSMENTS No Information PLAN OF TREATMENT Next Appt Details Provider Name:Linda Pelaez, 05-09 11:15:00 AM, [address], , [place], [address], Provider Name:Imelda Art, 6 03:00:00 PM, [address], , [place], [address], Provider Name:Jessika Young, 01:30:00 PM, [address], , [place], [address], Provider Name:Rani Blas, 05-31 01:15:00 PM, [address] , , [place], [address], Insurance Providers Payer Name Payer Address Payer Phone Insured Name Patient Relati onship to Insured Coverage Start Date Coverage End Date MEDICARE Part A and B [address] [facility] [address] [phone] ARBEN QUINTERO self [employer] OPTIONS [facility] [address] [facility] [phone] ARBEN QUINTERO self
--- OUTSIDE RECORDS SUMMARY | 2021-07-28 03:42 | CCD ---
Author Author [facility] Organization [facility] Address Unknown Phone Unavailable Care Team Providers Care City Solicitor Name Role Phone Linda Pelaez Unavailable PROBLEMS Type Condition ICD9-CM Code [id number] Code Onset Dates Condition S tatus W/U Status Risk SNOMED Code Notes Problem Hypothyroidism, unspecified type E03.9 Active conf irmed 87880355 Problem Lipid screening Z13.220 Active confirmed 243 990300 Problem Anemia, unspecified type D64.9 Active confirmed 591000725 Problem Acquired hypothyroidism E03.9 Active confirmed 285629062 Problem Morbid obesity, unspecified obesity type E66.01 Active confirmed 067722234 Problem Hydronephrosis N13.30 Active confirmed 15394 006 Problem [facility] current use of insulin Z79.4 Active conf irmed 270058933 Problem 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 Active confirmed 41 6008308 Problem 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 Active confirmed 89820266 Problem 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 Active confirmed 3 20764941 Problem Type 2 diabetes mellitus wit h complication, without long-term current use of insulin E11.8 Active confirmed 61200751 Problem Personal history of pulmonary embolism Z86.711 A ctive confirmed 332671035 Problem Postop check Z09 Active confirmed 9392977 07 Problem Preop testing Z01.818 Active confirmed 54723 9001 Problem History of bladder repair surgery Z98.890 Active confirmed 052131199 Problem Type 2 diabetes mellitus wit h complication, 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 use status E11.8 Active confirmed 390416627 Problem Malignant neoplasm of colon, unspecified part of colon C18.9 Active confirmed 516727682 Problem Essential hypertension I10 Active confirmed 07151841 Problem Urinary obstruction N13.9 Active confirmed 9881051 Problem 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 Active confirmed 80975795 Problem 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 Active confir med 45004903 Problem Frequent UTI N39.0 Active confirmed 8187404 5 Problem Urge incontinence of urine N39.41 Active confirmed 22854271 Problem Decubitus ulcer of left heel, stage 2 L89.622 Ac tive confirmed 745624284 Problem Combined hyperlipidemia E78.2 Active confirmed 853076004 Problem Pressure ulcer of left heel, stage 3 L89.623 Act raffy confirmed 156557089 Problem Hydronephrosis with ureteral stricture, not else where classified N13.1 Active confirmed 35098969 Problem Ureteral stricture, left N13.5 Active confirmed 44014612 Problem Urge incontinence N39.41 Active confirmed 87 764712 Problem Urgency of urination R39.15 Active confirmed 57705106 Problem Other urinary incontinence N39.498 Active confirmed 182701513 Problem Pressure ulcer of right heel, stage 2 L89.612 Ac tive confirmed 099123322 ALLERGIES Allergen (clinical drug ingredient) Drug/Non Drug Allergy do cumented on EMR Reaction Allergy Type Onset Date Status accupril dizzy Non Drug Allergy Active lisinopril Lisinopril(NDC Code:[address]-15) DIZZY Drug Allergy Active aspirin Aspirin(NDC Code:[address]-98) Anaphylaxis Drug Allergy Active Contrast Dye Itchy Non Drug Allergy Active ENCOUNTERS from 1950 to 2021-05-10 Encounter Location Date Provider Diagnosis [facility] [address] [phone] [place] [address] Apr, Linda Pelaez Pressure ulcer of left heel, stage 3 [...] of Education: College Audit Question Answer Notes Interpretation: Alcohol Education Total Score: 0 Language: Question Answer Notes Languages spoken: Mongolian Taoism: Question Answer Notes Taoism 21 Rastafari No buddhism beliefs that would impact health care. Sexual Hx: Question Answer Notes Had sex in the last 12 months (vaginal, oral, or anal)? No Have you ever had an STD? No Drug and Alcohol Question Answer Notes Interpretation: No problems reported Total Score: 0 Alcohol Screening: Question Answer Notes Did you [...] No Information VITAL SIGNS Weight 200 lbs Apr, Weight-kg per pt kg Apr, Height 61.5 in Apr, BMI 37.17 kg/m2 Apr, Heart Rate 64 /min Apr, Respiratory Rate 17 /min Apr, Temperature 96.9 degrees Fahrenheit Apr, Oximetry 92 Apr, Blood pressure systolic 132 mm Hg Apr, Blood pressure diastolic 61 mm Hg Apr, MEDICATIONS Medication SIG (Take, Route, Frequency, Duration) [...] ce a day for 30 day(s) Active DiphenhydrAMINE HCl 25 mg 1 tablet [...] Once a day for 30 day(s) Active Doxycycline Monohydrate 100 MG 1 capsule Orally Twice a day Not-Taking Acetaminophen 500 MG 2 tablet as needed Orally every 6 hrs Not-Taking levoFLOXacin 250 MG 1 tablet Orally Once a day for 5 day(s) Jul, Not-Taking OneTouch Verio - 1 strip In Vitro daily Active Acetaminophen 325 MG 2 tablet as needed Orally every 4 hrs Active HumaLOG KwikPen 100 UNIT/ML as directed Subcutaneous ac and hs f or 30 days Nov, Not-Taking Methadone HCl 5 MG 1 tablet Orally once daily in evening 2 4 Jul, 2019 Not-Taking Cefdinir 300 MG as directed Orally bid for 10 day(s) 2019 Not-Taking Tucatinib 50 MG 5 tabs [...] Once a day for 90 day(s) Not-Taking Loperamide HCl 2 MG 1 capsule as needed Orally every 6 hours as neede d Active Carvedilol 6.25 MG 1 tab Orally twice daily for 90 days Not-Taking Ondansetron 4 MG 1 tablet on the tongue and a llow to dissolve Orally every 4 hours prn Not-Taking predniSONE 50 MG 1 tablet Orally [...] N13.5 for 30 Days Oct, Not-Mickey ing HYDROcodone-Acetaminophen 5-325 MG 1 tablet as needed Orally every 6 hrs Active MiraLax - as directed Orally Once a day for 90 day(s) Active Atorvastatin Calcium 10 MG 1 tablet Orally Once a day for 90 days Active Myrbetriq 50 MG 1 tablet Orally Once a day for 90 day(s) 2 Jan, Not-Taking Nystatin - as directed topically bid ap ply to abd folds, under breasts, and groin area Jul, Active Tresiba FlexTouch 200 UNIT/ML 36 units Subcutaneous da annalise at bedtime for 30 Days Active Methadone HCl 5 MG 1 tablet Orally Once a day Active Levothyroxine Sodium 125 MCG 1 tablet on an empty stom ach in the morning Orally Once a day Apr, Active Tolterodine Tartrate ER 4 MG 1 capsule Orally Once a day for 30 day(s) Apr, Active Prochlorperazine 10 MG 1 tablet as needed Orally every 6 hours Not-Taking PROCEDURES from 1950 to 2021-05-10 Procedure Date Ordered Result Body Site Medication: 4% Lidocaine topical cream (Anecream) 5gm 2021-05-09 N/A RESULTS No Results REASON FOR VISIT [...] colon surgery 2013 Surgical History liver resection- [facility] 2015 Surgical History port implanted 2013 [...] thrive 01/2021 Hospitalization History Pulmonary embolus @ [facility] 07/2016 Hospitalization History Uretral stricture removal and reimpl antation 02/2018 Hospitalization History IXA-[facility]-Hxmoxarfmde,weakness-UTI 2018 Hospitalization History rectal bleeding 01/25/19-01/29/19 Hospitalization History fractured femur 07/2019 Hospitalization History [facility] for 4 days for diverticulitis 2019 [...] Notes Treatment Notes Treatm ent Clinical Notes Apr, Pressure ulcer of left heel, stage 3 (ICD-10 - L 89.623) Dressing changes 3x a week. The dressing should follow those documented in the procedure note PLAN OF TREATMENT Treatment Notes Assessment Notes Clinical Notes Pressure ulcer of left heel, stage 3 Dressing changes 3x a week. The dressing should follow those documented in the procedure note Next Appt Details 1 Week Reason: Provider Name:Alan Olivares, 11:15:00 AM, [address], , [place], [address], Provider Name:Imelda Art, 6 03:00:00 PM, [address], , [place], [address], Provider Name:Jessika Young, 01:30:00 PM, [address], , [place], [address], Provider Name:Rani Blas, 05-31 01:15:00 PM, [address], , [place], [address], Insurance Providers Payer Name Payer Address Payer Phone Insured Name Patient Relati onship to Insured Coverage Start Date Coverage End Date MEDICARE Part A and B [address] [facility] [phone] ARBEN QUINTERO [facility] [place] [employer] [facility] [address] [facility] [address] ARBEN QUINTERO self
--- OUTSIDE RECORDS SUMMARY | 2021-07-28 03:42 | CCD ---
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 Name Role Phone Alan Olivares Unavailable PROBLEMS Type Condition ICD9-CM Code [id number] Code Onset Dates Condition S tatus W/U Status Risk SNOMED Code Notes Problem Hypothyroidism, unspecified type E03.9 Active conf irmed 03629252 Problem Lipid screening Z13.220 Active confirmed 243 029904 Problem Anemia, unspecified type D64.9 Active confirmed 641438905 Problem Acquired hypothyroidism E03.9 Active confirmed 558714456 Problem Morbid obesity, unspecified obesity type E66.01 Active confirmed 202893063 Problem Hydronephrosis N13.30 Active confirmed 07496 006 Problem [facility] current use of insulin Z79.4 Active conf irmed 127105524 Problem 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 Active confirmed 41 6381887 Problem 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8 Active confirmed 818724384 Problem Malignant neoplasm of colon, unspecified part of colon C18.9 Active confirmed 279704943 Problem Essential hypertension I10 Active confirmed 78592776 Problem Urinary obstruction N13.9 Active confirmed 3576465 Problem 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 Active confirmed 92946909 Problem 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 Active confir med 43940356 Problem Frequent UTI N39.0 Active confirmed 3835792 5 Problem Urge incontinence of urine N39.41 Active confirmed 16184908 Problem Decubitus ulcer of left heel, stage 2 L89.622 Ac tive confirmed 915309324 Problem Combined hyperlipidemia E78.2 Active confirmed 252542929 Problem Pressure ulcer of left heel, stage 3 L89.623 Act raffy confirmed 126689933 Problem Hydronephrosis with ureteral stricture, not else where classified N13.1 Active confirmed 52479355 Problem Ureteral stricture, left N13.5 Active confirmed 79559651 Problem Urge incontinence N39.41 Active confirmed 87 323767 Problem Urgency of urination R39.15 Active confirmed 29827307 Problem Other urinary incontinence N39.498 Active confirmed 633444388 Problem Pressure ulcer of right heel, stage 2 L89.612 Ac tive confirmed 502931430 ALLERGIES Allergen (clinical drug ingredient) Drug/Non Drug Allergy do cumented on EMR Reaction Allergy Type Onset Date Status accupril dizzy Non Drug Allergy Active lisinopril Lisinopril(ND Code:[address]-40) DIZZY Drug Allergy Active aspirin Aspirin(ND Code:[address]-80) Anaphylaxis Drug Allergy Active Contrast Dye Itchy Non Drug Allergy Active ENCOUNTERS from 1950 to 2021-05-11 Encounter Location Date Provider Diagnosis [facility] [phone] [place] [address] Apr, Alna Olivares Pressure ulcer of left heel, stage [...] Education Language: Question Answer Notes Languages spoken: Swedish Amish: Question Answer Notes Amish 21 Confucianism No jainism beliefs that would impact health care. Sexual [...] Apr, BMI 37.17 kg/m2 Apr, Heart Rate 80 /min Apr, Respiratory Rate 20 /min Apr, Temperature 98.4 degrees Fahrenheit Apr, Oximetry 95 Apr, Blood pressure systolic 148 mm Hg Apr, Blood pressure diastolic 65 mm Hg Apr, MEDICATIONS Medication SIG (Take, [...] 6 hours Not-Taking PROCEDURES from 1950 to 2021-05-11 Procedure Date Ordered Result Body Site Medication: 4% Lidocaine topical cream (Anecream) 5gm 2021-05-02 N/A RESULTS No Results REASON FOR VISIT [...] colon surgery 2013 Surgical History liver resection- [facility] 2015 Surgical History port implanted 2013 [...] thrive 01/2021 Hospitalization History Pulmonary embolus @ [facility] 07/2016 Hospitalization History Uretral stricture removal and reimpl antation 02/2018 Hospitalization History KTE-MA-Iyzkrybhjmn,weakness-UTI 2018 Hospitalization History rectal bleeding 01/25/19-01/29/19 Hospitalization History fractured femur 07/2019 Hospitalization History [facility] for 4 days for diverticulitis [...] (ICD-10 - L 89.623) PLAN OF TREATMENT Next Appt Details 1 Week Reason: Provider Name:Alan Oliavres, 11:15:00 AM, [address], , [place], [address], Provider Name:Imelda Art, 6 03:00:00 PM, [address], , [place], [address], Provider Name:Jessika Young, 01:30:00 PM, [address], , [place], [address], Provider Name:Rani Blas, 05-31 01:15:00 PM, [address] , , [place], [address], Insurance Providers Payer Name Payer Address Payer Phone Insured Name Patient Relati onship to Insured Coverage Start Date Coverage End Date MEDICARE Part A and B [address] [facility] [phone] [phone] ARBEN QUINTERO [facility] OPTIONS [facility] CLAIM DIV [address] [facility] [phone] ARBEN QUINTERO self
--- OUTSIDE RECORDS SUMMARY | 2021-07-28 03:43 | CCD ---
Author Author [facility] Address Unknown Phone Unavailable Care Team Providers Care Car Chaser Name Role Phone Jennifer Tsai Unavailable Unavailable Rebeca BAILEY MD Unavailable Unavailable Rebeca BAILEY MD Unavailable Unavailable Rebeca BAILEY MD Unavailable Unavailable Rebeca BAILEY MD Unavailable Unavailable Rebeca BAILEY MD Unavailable Unavailable Rebeca BAILEY MD Unavailable Unavailable Rebeca BAILEY MD Unavailable Unavailable Rebeca BAILEY MD Unavailable Unavailable Rebeca BAILEY MD Unavailable Unavailable Rebeca BAILEY MD Unavailable Unavailable Rebeca BAILEY MD Unavailable Unavailable Rebeca BAILEY MD Unavailable Unavailable Rebeca BAILEY MD Unavailable Unavailable Rebeca BAILEY MD Unavailable Unavailable Rebeca BAILEY MD Unavailable Unavailable Rebeca BAILEY MD Unavailable Unavailable Rebeca BAILEY MD Unavailable Unavailable Rebeca BAILEY MD Unavailable Unavailable Rebeca BAILEY MD Unavailable Unavailable Rebeca BAILEY MD Unavailable Unavailable Rebeca BAILEY MD Unavailable Unavailable Rebeca BAILEY MD Unavailable Unavailable Rebeca BAILEY MD Unavailable Unavailable Rebeca BAILEY MD Unavailable Unavailable Rebeca BAILEY MD Unavailable Unavailable Rebeca BAILEY MD Unavailable Unavailable Rebeca BAILEY MD Unavailable Unavailable Rebeca BAILEY MD Unavailable Unavailable Rebeca BAILEY MD Unavailable Unavailable LYNN, O RADAMES MD Unavailable Unavailable Rebeca BAILEY MD Unavailable Unavailable Rebeca BAILEY MD Unavailable Unavailable Rebeca BAILEY MD Unavailable Unavailable Rebeca BAILEY MD Unavailable Unavailable Rebeca BAILEY MD Unavailable Unavailable Rebeca BAILEY MD Unavailable Unavailable Rebeca BAILEY MD Unavailable Unavailable Reebca BAILEY MD Unavailable Unavailable Rebeca BAILEY MD Unavailable Unavailable Rebeca BAILEY MD Unavailable Unavailable Rebeca BAILEY MD Unavailable Unavailable Rebeca BAILEY MD Unavailable Unavailable Rebeca BAILEY MD Unavailable Unavailable Oneida BANDA DPM Unavailable Unavailable Oneida BANDA DPM Unavailable Unavailable Oneida BANDA DPM Unavailable Unavailable Oneida BANDA DPM Unavailable Unavailable Oneida BANDA DPM Unavailable Unavailable Oneida BANDA DPM Unavailable Unavailable Oneida BANDA DPM Unavailable Unavailable Oneida BANDA DPM Unavailable Unavailable Oneida BANDA DPM Unavailable Unavailable Oneida BANDA DPM Unavailable Unavailable Oneida BANDA DPM Unavailable Unavailable Oneida BANDA DPM Unavailable Unavailable Oneida BANDA DPM Unavailable Unavailable Oneida BANDA DPM Unavailable Unavailable Oneida BANDA DPM Unavailable Unavailable VERONIKA R RIC DPM Unavailable Unavailable Oneida BANDA DPM Unavailable Unavailable Oneida BANDA DPM Unavailable Unavailable Oneida BANDA DPM Unavailable Unavailable Oneida BANDA DPM Unavailable Unavailable Oneida BANDA DPM Unavailable Unavailable Oneida BANDA DPM Unavailable Unavailable Oneida BANDA DPM Unavailable Unavailable Oneida BANDA DPM Unavailable Unavailable Oneida BANDA DPM Unavailable Unavailable Oneida BANDA DPM Unavailable Unavailable Oneida BANDA DPM Unavailable Unavailable VERONIKA R RIC DPM Unavailable Unavailable VERONIKA R RIC DPM Unavailable Unavailable Oneida BANDA DPM Unavailable Unavailable Oneida BANDA DPM Unavailable Unavailable Keyon Blas VP INTEGRATION Unavailable Unavailable Keyon Blas VP INTEGRATION Unavailable Unavailable Keyon Blas VP INTEGRATION Unavailable Unavailable Keyon Blas VP INTEGRATION Unavailable Unavailable Keyon Blas VP INTEGRATION Unavailable Unavailable Keyon Blas VP INTEGRATION Unavailable Unavailable Keyon Blas VP INTEGRATION Unavailable Unavailable Alberry, D Rani VP INTEGRATION Unavailable Unavailable Alberry, D Rani VP INTEGRATION Unavailable Unavailable Alberry, D Rani VP INTEGRATION Unavailable Unavailable Alberry, D Rani VP INTEGRATION Unavailable Unavailable Alberry, D Rani VP INTEGRATION Unavailable Unavailable Alberry, D Rani VP INTEGRATION Unavailable Unavailable Alberry, D Rani VP INTEGRATION Unavailable Unavailable Alberry, D Rani VP INTEGRATION Unavailable Unavailable Alberry, D Rani VP INTEGRATION Unavailable Unavailable Alberry, D Rani VP INTEGRATION Unavailable Unavailable Alberry, D Rani VP INTEGRATION Unavailable Unavailable Alberry, D Rani VP INTEGRATION Unavailable Unavailable Alberry, D Rani VP INTEGRATION Unavailable Unavailable Alberry, D Rani VP INTEGRATION Unavailable Unavailable Alberry, D Rani VP INTEGRATION Unavailable Unavailable Alberry, D Rani VP INTEGRATION Unavailable Unavailable Alberry, D Rani VP INTEGRATION Unavailable Unavailable Alberry, D Rani VP INTEGRATION Unavailable Unavailable Alberry, D Arni VP INTEGRATION Unavailable Unavailable Alberry, D Rani VP INTEGRATION Unavailable Unavailable Alberry, D Rani VP INTEGRATION Unavailable Unavailable Alberry, D Rani VP INTEGRATION Unavailable Unavailable Alberry, D Rani VP INTEGRATION Unavailable Unavailable Alberry, D Rani VP INTEGRATION Unavailable Unavailable Alberry, D Rani VP INTEGRATION Unavailable Unavailable Alberry, D Rani VP INTEGRATION Unavailable Unavailable Alberry, D Rani VP INTEGRATION Unavailable Unavailable Alberry, D Rani VP INTEGRATION Unavailable Unavailable Alberry, D Rani VP INTEGRATION Unavailable Unavailable Alberry, D Rani VP INTEGRATION Unavailable Unavailable Alberry, D Rani VP INTEGRATION Unavailable Unavailable Alberry, D Rani VP INTEGRATION Unavailable Unavailable Alberry, D Rani VP INTEGRATION Unavailable Unavailable Alberry, D Rani VP INTEGRATION Unavailable Unavailable Alberry, D Rani VP INTEGRATION Unavailable Unavailable Alberry, D Rani VP INTEGRATION Unavailable Unavailable Alberry, D Rani VP INTEGRATION Unavailable Unavailable Alberry, D Rani VP INTEGRATION Unavailable Unavailable Alberry, D Rani VP INTEGRATION Unavailable Unavailable Alberry, D Rani VP INTEGRATION Unavailable Unavailable Alberry, D Rani VP INTEGRATION Unavailable Unavailable Alberry, D Rani VP INTEGRATION Unavailable Unavailable Alberry, D Rani VP INTEGRATION Unavailable Unavailable Alberry, D Rani VP INTEGRATION Unavailable Unavailable Alberry, D Rani VP INTEGRATION Unavailable Unavailable Alberry, D Rani VP INTEGRATION Unavailable Unavailable Alberry, D Rani VP INTEGRATION Unavailable Unavailable Alberry, D Rani VP INTEGRATION Unavailable Unavailable Mat Tilley MD Unavailable Unavailable Mat Tilley MD Unavailable Unavailable Tilley, M Alcaraz MD Unavailable Unavailable Tilley, M Alcaraz MD Unavailable Unavailable Tilley, M Alcaraz MD Unavailable Unavailable Tilley, M Alcaraz MD Unavailable Unavailable Tilley, M Alcaraz MD Unavailable Unavailable Tilley, M Alcaraz MD Unavailable Unavailable Tilley, M Alcaraz MD Unavailable Unavailable Tilley, M Alcaraz MD Unavailable Unavailable Tilley, M Alcaraz MD Unavailable Unavailable Tilley, M Alcaraz MD Unavailable Unavailable Tilley, M Alcaraz MD Unavailable Unavailable Tilley, M Alcaraz MD Unavailable Unavailable Tilley, M Alcaraz MD Unavailable Unavailable Tilley, M Alcaraz MD Unavailable Unavailable Tilley, M Alcaraz MD Unavailable Unavailable Tilley, M Alcaraz MD Unavailable Unavailable Tilley, M Alcaraz MD Unavailable Unavailable Tilley, M Alcaraz MD Unavailable Unavailable Tilley, M Alcaraz MD Unavailable Unavailable Tilley, M Alcaraz MD Unavailable Unavailable Tilley, M Alcaraz MD Unavailable Unavailable Tilley, M Alcaraz MD Unavailable Unavailable Tilley, M Alcaraz MD Unavailable Unavailable Tilley, M Alcaraz MD Unavailable Unavailable Tilley, M Alcaraz MD Unavailable Unavailable Tilley, M Alcaraz MD Unavailable Unavailable Tilley, M Alcaraz MD Unavailable Unavailable Tilley, M Alcaraz MD Unavailable Unavailable Tilley, M Alcaraz MD Unavailable Unavailable Tilley, M Alcaraz MD Unavailable Unavailable Tilley, M Alcaraz MD Unavailable Unavailable Tilley, M Alcaraz MD Unavailable Unavailable Tilley, M Alcaraz MD Unavailable Unavailable Tilley, M Alcaraz MD Unavailable Unavailable Tilley, M Alcaraz MD Unavailable Unavailable Tilley, M Alcaraz MD Unavailable Unavailable Tilley, M Alcaraz MD Unavailable Unavailable Tilley, M Alcaraz MD Unavailable Unavailable Tilley, M Alcaraz MD Unavailable Unavailable Tilley, M Alcaraz MD Unavailable Unavailable Tilley, M Alcaraz MD Unavailable Unavailable Tilley, M Alcaraz MD Unavailable Unavailable Tilley, M Alcaraz MD Unavailable Unavailable Tilley, M Alcaraz MD Unavailable Unavailable Tilley, M Alcaraz MD Unavailable Unavailable Tilley, M Alcaraz MD Unavailable Unavailable Tilley, M Alcaraz MD Unavailable Unavailable Tilley, M Alcaraz MD Unavailable Unavailable Tilley, M Alcaraz MD Unavailable Unavailable Tilley, M Alcaraz MD Unavailable Unavailable Tilley, M Alcaraz MD Unavailable Unavailable Tilley, M Alcaraz MD Unavailable Unavailable Tilley, M Alcaraz MD Unavailable Unavailable Tilley, M Alcaraz MD Unavailable Unavailable Tilley, M Alcaraz MD Unavailable Unavailable Tilley, M Alcaraz MD Unavailable Unavailable Tilley, M Alcaraz MD Unavailable Unavailable Tilley, Mat Alcaraz MD Unavailable Unavailable Tilley, Mat Alcaraz MD Unavailable Unavailable Tilley, Mat Alcaraz MD Unavailable Unavailable Tilley, Mat Alcaraz MD Unavailable Unavailable Tilley, Mat Alcaraz MD Unavailable Unavailable Tilley, Mat Alcaraz MD Unavailable Unavailable Tilley, Mat Alcaraz MD Unavailable Unavailable SEMEL, Eric SANTANA MD Unavailable Unavailable SEMEL, Eric SANTANA MD Unavailable Unavailable SEMEL, Eric SANTANA MD Unavailable Unavailable SEMEL, Eric SANTANA MD Unavailable Unavailable SEMEL, Eric SANTANA MD Unavailable Unavailable SEMEL, Eric SANTANA MD Unavailable Unavailable SEMEL, Eric SANTANA MD Unavailable Unavailable SEMEL, Eric SANTANA MD Unavailable Unavailable SEMEL, Eric SANTANA MD Unavailable Unavailable SEMEL, Eric SANTANA MD Unavailable Unavailable SEMEL, Eric SANTANA MD Unavailable Unavailable SEMEL, Eric SANTANA MD Unavailable Unavailable SEMEL, Eric SANTANA MD Unavailable Unavailable SEMEL, Eric SANTANA MD Unavailable Unavailable SEMEL, Eric SANTANA MD Unavailable Unavailable SEMEL, Eric SANTANA MD Unavailable Unavailable SEMEL, Eric SANTANA MD Unavailable Unavailable SEMEL, Eric SANTANA MD Unavailable Unavailable SEMEL, Eric SANTANA MD Unavailable Unavailable SEMEL, Eric SANTANA MD Unavailable Unavailable SEMEL, Eric SANTANA MD Unavailable Unavailable SEMEL, Eric SANTANA MD Unavailable Unavailable SEMEL, Eric SANTANA MD Unavailable Unavailable SEMEL, Eric SANTANA MD Unavailable Unavailable SEMEL, Eric SANTANA MD Unavailable Unavailable SEMEL, Eric SANTANA MD Unavailable Unavailable SEMEL, Eric SANTANA MD Unavailable Unavailable SEMEL, Eric SANTANA MD Unavailable Unavailable SEMEL, Eric SANTANA MD Unavailable Unavailable SEMEL, Eric SANTANA MD Unavailable Unavailable SEMEL, Eric SANTANA MD Unavailable Unavailable SEMEL, Eric SANTANA MD Unavailable Unavailable SEMEL, Eric SANTANA MD Unavailable Unavailable SEMEL, Eric SANTANA MD Unavailable Unavailable SEMEL, Eric SANTANA MD Unavailable Unavailable SEMEL, Eric SANTANA MD Unavailable Unavailable SEMEL, Eric SANTANA MD Unavailable Unavailable SEMEL, Eric SANTANA MD Unavailable Unavailable SEMEL, Eric SANTANA MD Unavailable Unavailable SEMEL, Eric SANTANA MD Unavailable Unavailable SEMEL, Eric SANTANA MD Unavailable Unavailable SEMEL, Eric SANTANA MD Unavailable Unavailable SEMEL, Eric SANTANA MD Unavailable Unavailable SEMEL, Eric SANTANA MD Unavailable Unavailable SEMEL, Eric SANTANA MD Unavailable Unavailable SEMEL, Eric SANTANA MD Unavailable Unavailable SEMEL, Eric SANTANA MD Unavailable Unavailable SEMEL, Eric SANTANA MD Unavailable Unavailable SEMEL, Eric SANTANA MD Unavailable Unavailable SEMEL, Eric SANTANA MD Unavailable Unavailable SEMEL, Eric SANTANA MD Unavailable Unavailable SEMEL, Eric SANTANA MD Unavailable Unavailable SEMEL, Eric SANTANA MD Unavailable Unavailable SEMEL, Eric SANTANA MD Unavailable Unavailable SEMEL, Eric SANTANA MD Unavailable Unavailable SEMEL, Eric SANTANA MD Unavailable Unavailable SEMEL, Eric SANTANA MD Unavailable Unavailable SEMEL, Eric SANTANA MD Unavailable Unavailable SEMEL, Eric SANTANA MD Unavailable Unavailable SEMEL, Eric SANTANA MD Unavailable Unavailable SEMEL, Eric SANTANA MD Unavailable Unavailable SEMEL, Eric SANTANA MD Unavailable Unavailable SEMEL, Eric SANTANA MD Unavailable Unavailable SEMEL, Eric SANTANA MD Unavailable Unavailable SEMEL, Eric SANTANA MD Unavailable Unavailable SEMEL, Eric SANTANA MD Unavailable Unavailable SEMEL, Eric SANTANA MD Unavailable Unavailable SEMEL, Eric SANTANA MD Unavailable Unavailable SEMEL, Eric SANTANA MD Unavailable Unavailable SEMEL, Eric SANTANA MD Unavailable Unavailable SEMEL, Eric SANTANA MD Unavailable Unavailable SEMEL, Eric SANTANA MD Unavailable Unavailable SEMEL, Eric SANTANA MD Unavailable Unavailable SEMEL, Eric SANTANA MD Unavailable Unavailable SEMEL, Eric SANTANA MD Unavailable Unavailable SEMEL, Eric SANTANA MD Unavailable Unavailable SEMEL, Eric SANTANA MD Unavailable Unavailable SEMEL, Eric SANTANA MD Unavailable Unavailable SEMEL, Eric SANTANA MD Unavailable Unavailable SEMEL, Eric SANTANA MD Unavailable Unavailable SEMEL, Eric SANTANA MD Unavailable Unavailable SEMEL, Eric SANTANA MD Unavailable Unavailable SEMEL, Eric SANTANA MD Unavailable Unavailable SEMEL, Eric SANTANA MD Unavailable Unavailable SEMEL, Eric SANTANA MD Unavailable Unavailable SEMEL, Eric SANTANA MD Unavailable Unavailable SEMEL, Eric SANTANA MD Unavailable Unavailable SEMEL, Eric SANTANA MD Unavailable Unavailable SEMEL, Eric SANTANA MD Unavailable Unavailable SEMEL, Eric SANTANA MD Unavailable Unavailable SEMEL, Eric SANTANA MD Unavailable Unavailable SEMEL, Eric SANTANA MD Unavailable Unavailable SEMEL, Eric SANTANA MD Unavailable Unavailable SEMEL, Eric SANTANA MD Unavailable Unavailable SEMEL, Eric SANTANA MD Unavailable Unavailable SEMEL, Eric SANTANA MD Unavailable Unavailable SEMEL, Eric SANTANA MD Unavailable Unavailable SEMEL, Eric SANTANA MD Unavailable Unavailable SEMEL, Eric SANTANA MD Unavailable Unavailable SEMEL, Eric SANTANA MD Unavailable Unavailable SEMEL, Eric SANTANA MD Unavailable Unavailable SEMEL, Eric SANTANA MD Unavailable Unavailable SEMEL, Eric SANTANA MD Unavailable Unavailable SEMEL, Eric SANTANA MD Unavailable Unavailable SEMEL, Eric SANTANA MD Unavailable Unavailable SEMEL, Eric SANTANA MD Unavailable Unavailable SEMEL, Eric SANTANA MD Unavailable Unavailable SEMEL, Eric SANTANA MD Unavailable Unavailable SEMEL, Eric SANTANA MD Unavailable Unavailable SEMEL, Eric SANTANA MD Unavailable Unavailable SEMEL, Eric SANTANA MD Unavailable Unavailable SEMEL, Eric SANTANA MD Unavailable Unavailable SEMEL, Eric SANTANA MD Unavailable Unavailable SEMEL, Eric SANTANA MD Unavailable Unavailable SEMEL, Eric SANTANA MD Unavailable Unavailable SEMEL, Eric SANTANA MD Unavailable Unavailable SEMEL, Eric SANTANA MD Unavailable Unavailable SEMEL, Eric SANTANA MD Unavailable Unavailable SEMEL, Eric SANTANA MD Unavailable Unavailable SEMEL, Eric SANTANA MD Unavailable Unavailable SEMEL, Eric SANTANA MD Unavailable Unavailable SEMEL, Eric SANTANA MD Unavailable Unavailable Re-disclosure Warning The records that you are about to access may contain information from federally-assisted alcohol or drug abuse programs. If such information is present, then the following federally mandated warning applies: This information has been disclosed to you from records protected by federal confidentiality rules (42 CFR part 2). The federal rules prohibit you from making any further disclosure of this information unless further disclosure is expressly permitted by the written consent of the person to whom it pertains or as otherwise permitted by 42 CFR part 2. A general authorization for the release of medical or other information is NOT sufficient for this purpose. The Federal rules restrict any use of the information to criminally investigate or prosecute any alcohol or drug abuse patient.The records that you are about to access may contain highly sensitive health information, the redisclosure of which is protected by Article 27-F of the [facility] Public Health law. If you continue you may have access to information: Regarding HIV / AIDS; Provided by facilities licensed or operated by the [facility] Office of Mental Health; or Provided by the [facility] Office for People With Developmental Disabilities. If such information is present, then the following [facility] mandated warning applies: This information has been disclosed to you from confidential records which are protected by state law. State law prohibits you from making any further disclosure of this information without the specific written consent of the person to whom it pertains, or as otherwise permitted by law. Any unauthorized further disclosure in violation of state law may result in a fine or half-way sentence or both. A general authorization for the release of medical or other information is NOT sufficient authorization for further disc losure. Family History Family Member Name Family Member Gender Family Member Status Date o f Status Description Data Source(s) Unknown Unknown Problem MEDENT ([facility]) Unknown Female Problem MEDENT ([facility]) Unknown Female Problem MEDENT ([facility]) Encounters Encounter Providers Location Date Indications Data Source(s ) [place] [address] [facility] [address] 07/27/2021 12:00:00 AM EDT eCW1 ([facility]) [place] [address] [facility] [address] 07/26/2021 12:00:00 AM EDT [facility] [place] [address] [facility] [address] 07/24/2021 12:00:00 AM EDT eCW1 ([facility]) [place] [address] [facility] [address] 07/19/2021 12:00:00 AM EDT eCW1 ([facility]) [place] [address] [facility] [address] 07/07/2021 12:00:00 AM EDT eCW1 [facility] Outpatient Attender: Lissa Tilley MD 06/13/2021 12:00:00 AM EDT [facility] [place]patient [address] [facility] [address] 05/31/2021 12:00:00 AM EDT eCW1 ([facility]) [place] [address] [facility] [address] 05/26/2021 12:00:00 AM EDT eCW1 ([facility]) Outpatient Admitter: Esteban Gamboaer: Esteban Tsai 05/25/2021 12:00:00 AM EDT Anemia, unspecified [facility] Anemia, unspecified ([id number]) For Template Reinoso [address] [place] [address] 05/23/2021 12:00:00 AM EDT eCW1 ([facility]) Unknown [address] [facility] [address] 05/22/2021 12:00:00 AM EDT eCW1 ([facility]) [place]patient [address] [facility] [address] 05/19/2021 12:00:00 AM EDT eCW1 ([facility]) [place] [address] [facility] [address] 05/19/2021 12:00:00 AM EDT eCW1 ([facility]) Outpatient Attender: MAX JENKINS MD Main Office 05/18/2021 11:00:0 0 AM EDT MEDENT ([facility]) [place] [address] [facility] [address] 05/17/2021 12:00:00 AM EDT eCW1 ([facility]) [place]patient [address] [facility] [address] 05/16/2021 12:00:00 AM EDT eCW1 ([facility]) [place] [address] [facility] [address] 05/12/2021 12:00:00 AM EDT eCW1 ([facility]) [place]patient [address] [facility] [address] 05/09/2021 12:00:00 AM EDT eCW1 ([facility]) Unknown [address] [facility] [address] 05/04/2021 12:00:00 AM EDT eCW1 ([facility]) [place]patient [address] [facility] [address] 05/02/2021 12:00:00 AM EDT eCW1 ([facility]) [place]patient [address] [facility] [address] 04/27/2021 12:00:00 AM EDT eCW1 ([facility]) Unknown [address] [facility] [address] 04/27/2021 12:00:00 AM EDT eCW1 ([facility]) ([id number]) For Template Reinos[facility] [address] [place] [address] 04/25/2021 12:00:00 AM EDT eCW1 ([facility]) Outpatient [address] [facility], [facility] [address] 04/18/2021 12:00:00 AM EDT eCW1 ([facility]) Unknown [address] [facility] [address] 04/10/2021 12:00:00 AM EDT eCW1 ([facility]) Unknown [address] [facility] [address] 04/05/2021 12:00:00 AM EDT eCW1 ([facility]) (WND NP120) New Patient 120 Min [address] [place] [address] 04/04/2021 12:00:00 AM EDT eCW1 ([facility]) Outpatient Attender: RIC BANDA [facility] Office 03/15 02:45:00 PM EDT MEDENT ([facility] Outpatient [address] [facility] Y [address] 03/23/2021 12:00:00 AM EDT eCW1 ([facility]) Outpatient Attender: Rani MAGDALENOP 03/21/2021 02:13 :00 PM [facility] Outpatient [address] [facility] Y [address] 03/21/2021 12:00:00 AM EDT eCW1 ([facility]) Unknown [address] [facility] Y [address] 03/21/2021 12:00:00 AM EDT eCW1 ([facility]) [place] [address] [facility] [address] 03/20/2021 12:00:00 AM EDT eCW1 ([facility]) Unknown [address] [facility] [place] [address] 03/17/2021 12:00:00 AM EDT eCW1 ([facility]) Unknown [address] [facility] Y [address] 03/07/2021 12:00:00 AM EDT eCW1 ([facility]) [place] [address] [facility] [address] 03/06/2021 12:00:00 AM EDT eCW1 ([facility]) Outpatient [address] [facility] [address] 02/27/2021 12:00:00 AM EDT eCW1 ([facility]) Unknown [address] [facility] [place] [address] 02/27/2021 12:00:00 AM EDT eCW1 ([facility]) Unknown [address] [facility] [address] 02/15/2021 12:00:00 AM EDT eCW1 ([facility]) Unknown [address] [facility] Y [address] 02/07/2021 12:00:00 AM EDT eCW1 ([facility]) Outpatient [address] [facility] Y [address] 02/06/2021 12:00:00 AM EDT eCW1 ([facility]) (TCM) Transition of Care Visit [address] [place] [address] 02/02/2021 12:00:00 AM EDT eCW1 ([facility]) Outpatient Attender: RADAMES Moseley/Sonia/Raza/Lyndsey indkym 02/01/2021 10:30:00 AM EDT MEDENT ([facility] Unknown [address] [facility] [address] 01/30/2021 12:00:00 AM EDT eCW1 ([facility]) Unknown [address] [facility] [place] [address] 01/23/2021 12:00:00 AM EDT eCW1 ([facility]) Outpatient [address] [facility] [address] 12/22/2020 12:00:00 AM EST eCW1 ([facility] Unknown [address] [facility] [address] 12/21/2020 12:00:00 AM EST eCW1 ([facility]) [place] [address] [facility] [address] 11/22/2020 12:00:00 AM EST eCW1 ([facility]) [place] [address] [facility] [address] 10/25/2020 12:00:00 AM EST eCW1 ([facility]) [place] [address] [facility] [address] 10/18/2020 12:00:00 AM EST eCW1 ([facility]) Unknown [address] [facility] [address] 10/18/2020 12:00:00 AM EST eCW1 ([facility]) [place]patient [address] [facility] [address] 10/03/2020 12:00:00 AM EST eCW1 ([facility]) (Cysto1) Urology [address] [place] [address] 09/23/2020 12:00:00 AM EST eCW1 ([facility]) [place] [address] [facility] [address] 09/22/2020 12:00:00 AM EST eCW1 ([facility]) [place] [address] [facility] [address] 09/05/2020 12:00:00 AM EST eCW1 ([facility] [facility] [address] [facility] [address] [place] [address] 08/26/2020 12:00:00 AM EST eCW1 ([facility] Outpatient [address] [facility] [place] [address] 08/24/2020 12:00:00 AM EST eCW1 ([facility]) Unknown [address] [facility] [place] [address] 08/01/2020 12:00:00 AM EDT eCW1 ([facility]) [place] [address] [facility] [address] 07/28/2020 12:00:00 AM EDT eCW1 (On license of [facility]) Unknown [address] [facility] [address] 07/14/2020 12:00:00 AM EDT eCW1 (On license of [facility]) [place] [address] [facility] [address] 07/13/2020 12:00:00 AM EDT eCW1 (On license of [facility]) Unknown [address] [facility] [address] 07/13/2020 12:00:00 AM EDT eCW1 (On license of [facility]) Immunizations Vaccine Date Status Description Data Source(s) COVID-19 VACCINE Moderna 06/12/2021 12:00:00 AM EDT completed [employer] Vaccine Series Complete: YESThis Data wa s Submitted to [facility] Via [employer]. COVID-19 VACCINE Moderna 12/18/2020 12:00:00 AM EST completed [employer] Vaccine Series Complete: YESThis Data wa s Submitted to [facility] Via [employer]. COVID-19 dose #1 given elsewhere Unspecified 11/20/2020 09:0 9:00 AM EST completed eCW1 (On license of [facility]) COVID-19 dose #1 given elsewhere Unspecified 11/20/2020 09:0 9:00 AM EST completed eCW1 (On license of [facility]) COVID-19 dose #1 given elsewhere Unspecified 11/20/2020 09:0 9:00 AM EST completed eCW1 (On license of [facility]) COVID-19 dose #1 given elsewhere Unspecified 11/20/2020 09:0 9:00 AM EST completed eCW1 (On license of [facility]) COVID-19 dose #1 given elsewhere Unspecified 11/20/2020 09:0 9:00 AM EST completed eCW1 (On license of [facility]) COVID-19 dose #1 given elsewhere Unspecified 11/20/2020 09:0 9:00 AM EST completed eCW1 (On license of [facility]) COVID-19 dose #1 given elsewhere Unspecified 11/20/2020 09:0 9:00 AM EST completed eCW1 (On license of [facility]) COVID-19 dose #1 given elsewhere Unspecified 11/20/2020 09:0 9:00 AM EST completed eCW1 (On license of [facility]) COVID-19 dose #1 given elsewhere Unspecified 11/20/2020 09:0 9:00 AM EST completed eCW1 (On license of [facility]) COVID-19 dose #1 given elsewhere Unspecified 11/20/2020 09:0 9:00 AM EST completed eCW1 (On license of [facility]) COVID-19 dose #1 given elsewhere Unspecified 11/20/2020 09:0 9:00 AM EST completed eCW1 (On license of [facility]) COVID-19 dose #1 given elsewhere Unspecified 11/20/2020 09:0 9:00 AM EST completed eCW1 (On license of [facility]) COVID-19 dose #1 given elsewhere Unspecified 11/20/2020 09:0 9:00 AM EST completed eCW1 (On license of [facility]) COVID-19 dose #1 given elsewhere Unspecified 11/20/2020 09:0 9:00 AM EST completed eCW1 (On license of [facility]) COVID-19 dose #1 given elsewhere Unspecified 11/20/2020 09:0 9:00 AM EST completed eCW1 (On license of [facility]) COVID-19 dose #1 given elsewhere Unspecified 11/20/2020 09:0 9:00 AM EST completed eCW1 (On license of [facility]) COVID-19 dose #1 given elsewhere Unspecified 11/20/2020 09:0 9:00 AM EST completed eCW1 (On license of [facility]) COVID-19 dose #1 given elsewhere Unspecified 11/20/2020 09:0 9:00 AM EST completed eCW1 (On license of [facility]) COVID-19 dose #1 given elsewhere Unspecified 11/20/2020 09:0 9:00 AM EST completed eCW1 (On license of [facility]) COVID-19 dose #1 given elsewhere Unspecified 11/20/2020 09:0 9:00 AM EST completed eCW1 (On license of [facility]) COVID-19 dose #1 given elsewhere Unspecified 11/20/2020 09:0 9:00 AM EST completed eCW1 (On license of [facility]) COVID-19 dose #1 given elsewhere Unspecified 11/20/2020 09:0 9:00 AM EST completed eCW1 (On license of [facility]) COVID-19 dose #1 given elsewhere Unspecified 11/20/2020 09:0 9:00 AM EST completed eCW1 (On license of [facility]) COVID-19 dose #1 given elsewhere Unspecified 11/20/2020 09:0 9:00 AM EST completed eCW1 (On license of [facility]) COVID-19 dose #1 given elsewhere Unspecified 11/20/2020 09:0 9:00 AM EST completed eCW1 (On license of [facility]) COVID-19 dose #1 given elsewhere Unspecified 11/20/2020 09:0 9:00 AM EST completed eCW1 (On license of [facility]) COVID-19 dose #1 given elsewhere Unspecified 11/20/2020 09:0 9:00 AM EST completed eCW1 (On license of [facility]) COVID-19 dose #1 given elsewhere Unspecified 11/20/2020 09:0 9:00 AM EST completed eCW1 (On license of [facility]) COVID-19 dose #1 given elsewhere Unspecified 11/20/2020 09:0 9:00 AM EST completed eCW1 (On license of [facility]) COVID-19 dose #1 given elsewhere Unspecified 11/20/2020 09:0 9:00 AM EST completed eCW1 (On license of [facility]) COVID-19 dose #1 given elsewhere Unspecified 11/20/2020 09:0 9:00 AM EST completed eCW1 (On license of [facility]) COVID-19 dose #1 given elsewhere Unspecified 11/20/2020 09:0 9:00 AM EST completed eCW1 (On license of [facility]) COVID-19 dose #1 given elsewhere Unspecified 11/20/2020 09:0 9:00 AM EST completed eCW1 (On license of [facility]) COVID-19 dose #1 given elsewhere Unspecified 11/20/2020 09:0 9:00 AM EST completed eCW1 (On license of [facility]) COVID-19 dose #1 given elsewhere Unspecified 11/20/2020 09:0 9:00 AM EST completed eCW1 (On license of [facility]) COVID-19 dose #1 given elsewhere Unspecified 11/20/2020 09:0 9:00 AM EST completed eCW1 (On license of [facility]) COVID-19 dose #1 given elsewhere Unspecified 11/20/2020 09:0 9:00 AM EST completed eCW1 (On license of [facility]) COVID-19 dose #1 given elsewhere Unspecified 11/20/2020 09:0 9:00 AM EST completed eCW1 (On license of [facility]) COVID-19 dose #1 given elsewhere Unspecified 11/20/2020 09:0 9:00 AM EST completed eCW1 (On license of [facility]) COVID-19 dose #1 given elsewhere Unspecified 11/20/2020 09:0 9:00 AM EST completed eCW1 (On license of [facility]) COVID-19 dose #1 given elsewhere Unspecified 11/20/2020 09:0 9:00 AM EST completed eCW1 (On license of [facility]) COVID-19(given elsewhere) Unspecified 11/20/2020 09:09:00 AM EST co mpleted eCW1 ([facility]) COVID-19 VACCINE Moderna 11/20/2020 12:00:00 AM EST completed [employer] Vaccine Series Complete: NOThis Data was Submitted to [facility] Via [employer]. Medications Medication Brand Name Start Date Product Form Dose Route Admi nistrative Instructions Pharmacy Instructions Status Indications Reaction Description Data Source(s) methenamine hippurate 1000 MG Oral Tablet Methenamine Hippurate 1 GM Methenamine Hippurate 1 GM 07/24/2021 12:00:00 AM EDT 1.0 {tablet} active Methenamine Hippurate 1 GM eCW1 ([facility]) methenamine hippurate 1000 MG Oral Tablet Methenamine Hippurate 1 GM Methenamine Hippurate 1 GM 07/24/2021 12:00:00 AM EDT 1.0 {tablet} active Methenamine Hippurate 1 GM eCW1 ([facility]) methenamine hippurate 1000 MG Oral Tablet Methenamine Hippurate 1 GM Methenamine Hippurate 1 GM 07/24/2021 12:00:00 AM EDT 1.0 {tablet} active Methenamine Hippurate 1 GM eCW1 ([facility]) May Have - UNK 06/05/2021 12:00:00 AM EDT active May Have - eCW1 ([facility]) May Have - UNK 06/05/2021 12:00:00 AM EDT active May Have - eCW1 ([facility]) May Have - UNK 06/05/2021 12:00:00 AM EDT active May Have - eCW1 ([facility]) May Have - UNK 06/05/2021 12:00:00 AM EDT active May Have - eCW1 ([facility]) May Have - UNK 06/05/2021 12:00:00 AM EDT active May Have - eCW1 ([facility]) Sulfamethoxazole 800 MG / Trimethoprim 1 60 MG Oral Tablet [Bactrim] Bactrim DS 800-160 MG Bactrim DS 800-160 MG 05/22/2021 12:00:00 AM EDT 1.0 {table t} active Bactrim DS 800-160 MG eCW1 ( [facility]) Sulfamethoxazole 800 MG / Trimethoprim 1 60 MG Oral Tablet [Bactrim] Bactrim DS 800-160 MG Bactrim DS 800-160 MG 05/22/2021 12:00:00 AM EDT 1.0 {table t} active Bactrim DS 800-160 MG eCW1 ( [facility]) Sulfamethoxazole 800 MG / Trimethoprim 1 60 MG Oral Tablet [Bactrim] Bactrim DS 800-160 MG Bactrim DS 800-160 MG 05/22/2021 12:00:00 AM EDT 1.0 {table t} active Bactrim DS 800-160 MG eCW1 ( [facility]) Sulfamethoxazole 800 MG / Trimethoprim 1 60 MG Oral Tablet [Bactrim] Bactrim DS 800-160 MG Bactrim DS 800-160 MG 05/22/2021 12:00:00 AM EDT 1.0 {table t} active Bactrim DS 800-160 MG eCW1 ( [facility]) Sulfamethoxazole 800 MG / Trimethoprim 1 60 MG Oral Tablet [Bactrim] Bactrim DS 800-160 MG Bactrim DS 800-160 MG 05/22/2021 12:00:00 AM EDT 1.0 {table t} active Bactrim DS 800-160 MG eCW1 ( [facility]) Sulfamethoxazole 800 MG / Trimethoprim 1 60 MG Oral Tablet [Bactrim] Bactrim DS 800-160 MG Bactrim DS 800-160 MG 05/22/2021 12:00:00 AM EDT 1.0 {table t} active Bactrim DS 800-160 MG eCW1 ( [facility]) Sulfamethoxazole 800 MG / Trimethoprim 1 60 MG Oral Tablet [Bactrim] Bactrim DS 800-160 MG Bactrim DS 800-160 MG 05/22/2021 12:00:00 AM EDT 1.0 {table t} suspended Bactrim DS 800-160 MG eCW1 ( [facility]) Sulfamethoxazole 800 MG / Trimethoprim 1 60 MG Oral Tablet [Bactrim] Bactrim DS 800-160 MG Bactrim DS 800-160 MG 05/22/2021 12:00:00 AM EDT 1.0 {table t} active Bactrim DS 800-160 MG eCW1 ( [facility]) Sulfamethoxazole 800 MG / Trimethoprim 1 60 MG Oral Tablet [Bactrim] Bactrim DS 800-160 MG Bactrim DS 800-160 MG 05/22/2021 12:00:00 AM EDT 1.0 {table t} suspended Bactrim DS 800-160 MG eCW1 ( [facility]) Sulfamethoxazole 800 MG / Trimethoprim 1 60 MG Oral Tablet [Bactrim] Bactrim DS 800-160 MG Bactrim DS 800-160 MG 05/22/2021 12:00:00 AM EDT 1.0 {table t} active Bactrim DS 800-160 MG eCW1 ( [facility]) Sulfamethoxazole 800 MG / Trimethoprim 1 60 MG Oral Tablet [Bactrim] Bactrim DS 800-160 MG Bactrim DS 800-160 MG 05/22/2021 12:00:00 AM EDT 1.0 {table t} suspended Bactrim DS 800-160 MG eCW1 ( [facility]) NITROFURANTOIN, MACROCRYSTALS 25 MG / Ni trofurantoin, Monohydrate 75 MG Oral Capsule [Macrobid] Macrobid 100 MG Macrobid 100 MG 05/19/2021 12:00:00 AM EDT active Macrobid 100 MG eCW1 ([facility]) NITROFURANTOIN, MACROCRYSTALS 25 MG / Ni trofurantoin, Monohydrate 75 MG Oral Capsule [Macrobid] Macrobid 100 MG Macrobid 100 MG 05/19/2021 12:00:00 AM EDT active Macrobid 100 MG eCW1 ([facility]) NITROFURANTOIN, MACROCRYSTALS 25 MG / Ni trofurantoin, Monohydrate 75 MG Oral Capsule [Macrobid] Macrobid 100 MG Macrobid 100 MG 05/19/2021 12:00:00 AM EDT active Macrobid 100 MG eCW1 ([facility]) NITROFURANTOIN, MACROCRYSTALS 25 MG / Ni trofurantoin, Monohydrate 75 MG Oral Capsule [Macrobid] Macrobid 100 MG Macrobid 100 MG 05/19/2021 12:00:00 AM EDT active Macrobid 100 MG eCW1 ([facility]) NITROFURANTOIN, MACROCRYSTALS 25 MG / Ni trofurantoin, Monohydrate 75 MG Oral Capsule [Macrobid] Macrobid 100 MG Macrobid 100 MG 05/19/2021 12:00:00 AM EDT active Macrobid 100 MG eCW1 ([facility]) NITROFURANTOIN, MACROCRYSTALS 25 MG / Ni trofurantoin, Monohydrate 75 MG Oral Capsule [Macrobid] Macrobid 100 MG Macrobid 100 MG 05/19/2021 12:00:00 AM EDT active Macrobid 100 MG eCW1 ([facility]) NITROFURANTOIN, MACROCRYSTALS 25 MG / Ni trofurantoin, Monohydrate 75 MG Oral Capsule [Macrobid] Macrobid 100 MG Macrobid 100 MG 05/19/2021 12:00:00 AM EDT active Macrobid 100 MG eCW1 ([facility]) NITROFURANTOIN, MACROCRYSTALS 25 MG / Ni trofurantoin, Monohydrate 75 MG Oral Capsule [Macrobid] Macrobid 100 MG Macrobid 100 MG 05/19/2021 12:00:00 AM EDT active Macrobid 100 MG eCW1 ([facility]) NITROFURANTOIN, MACROCRYSTALS 25 MG / Ni trofurantoin, Monohydrate 75 MG Oral Capsule [Macrobid] Macrobid 100 MG Macrobid 100 MG 05/19/2021 12:00:00 AM EDT active Macrobid 100 MG eCW1 ([facility]) 24 HR tolterodine tartrate 4 MG Extended Release Oral Capsule Tolterodine Tartrate ER 4 MG Tolterodine Tartrate ER 4 MG 04/27/2021 12:00:00 AM EDT 1.0 {capsule} active Tolterodine Tartrate E R 4 MG eCW1 ([facility]) 24 HR tolterodine tartrate 4 MG Extended Release Oral Capsule Tolterodine Tartrate ER 4 MG Tolterodine Tartrate ER 4 MG 04/27/2021 12:00:00 AM EDT 1.0 {capsule} active Tolterodine Tartrate E R 4 MG eCW1 ([facility]) 24 HR tolterodine tartrate 4 MG Extended Release Oral Capsule Tolterodine Tartrate ER 4 MG Tolterodine Tartrate ER 4 MG 04/27/2021 12:00:00 AM EDT 1.0 {capsule} active Tolterodine Tartrate E R 4 MG eCW1 ([facility]) 24 HR tolterodine tartrate 4 MG Extended Release Oral Capsule Tolterodine Tartrate ER 4 MG Tolterodine Tartrate ER 4 MG 04/27/2021 12:00:00 AM EDT 1.0 {capsule} active Tolterodine Tartrate E R 4 MG eCW1 ([facility]) 24 HR tolterodine tartrate 4 MG Extended Release Oral Capsule Tolterodine Tartrate ER 4 MG Tolterodine Tartrate ER 4 MG 04/27/2021 12:00:00 AM EDT 1.0 {capsule} active Tolterodine Tartrate E R 4 MG eCW1 ([facility]) 24 HR tolterodine tartrate 4 MG Extended Release Oral Capsule Tolterodine Tartrate ER 4 MG Tolterodine Tartrate ER 4 MG 04/27/2021 12:00:00 AM EDT 1.0 {capsule} active Tolterodine Tartrate E R 4 MG eCW1 ([facility]) 24 HR tolterodine tartrate 4 MG Extended Release Oral Capsule Tolterodine Tartrate ER 4 MG Tolterodine Tartrate ER 4 MG 04/27/2021 12:00:00 AM EDT 1.0 {capsule} active Tolterodine Tartrate E R 4 MG eCW1 ([facility]) 24 HR tolterodine tartrate 4 MG Extended Release Oral Capsule Tolterodine Tartrate ER 4 MG Tolterodine Tartrate ER 4 MG 04/27/2021 12:00:00 AM EDT 1.0 {capsule} active Tolterodine Tartrate E R 4 MG eCW1 ([facility]) ammonium lactate 120 MG/ML Topical Cream Ammonium Lactate 04/03/2021 12:00:00 AM EDT active MEDENT ([facility] Amoxicillin 875 MG / Clavulanate 125 MG Oral Tablet Amoxicillin-Pot Clavulanate 875-125 MG Amoxicillin-Pot Clavulanate 875-125 MG 03/21/2021 12:00:00 AM ED T 1.0 {tablet} active Amoxicillin-Pot Cla vulanate 875-125 MG eCW1 ([facility]) Amoxicillin 875 MG / Clavulanate 125 MG Oral Tablet Amoxicillin-Pot Clavulanate 875-125 MG Amoxicillin-Pot Clavulanate 875-125 MG 03/21/2021 12:00:00 AM ED T 1.0 {tablet} active Amoxicillin-Pot Cla vulanate 875-125 MG eCW1 ([facility]) Prednisone 50 MG Oral Tablet predniSONE 50 MG predniSONE 50 MG 02/15/2021 12:00:00 AM EDT 1.0 {tablet} suspended predniSONE 50 MG eCW1 ([facility]) Diphenhydramine Hydrochloride 50 MG Oral Capsule diphe nhydrAMINE HCl 50 MG diphenhydrAMINE HCl 50 MG 02/15/2021 12:00:00 AM EDT 1.0 {capsule} active diphenhydrAMINE HCl 50 MG eCW1 ( [facility]) Diphenhydramine Hydrochloride 50 MG Oral Capsule Diphe nhydrAMINE HCl 50 MG DiphenhydrAMINE HCl 50 MG 02/15/2021 12:00:00 AM EDT 1.0 {capsule} active DiphenhydrAMINE HCl 50 MG eCW1 ( [facility]) Diphenhydramine Hydrochloride 50 MG Oral Capsule diphe nhydrAMINE HCl 50 MG diphenhydrAMINE HCl 50 MG 02/15/2021 12:00:00 AM EDT 1.0 {capsule} active diphenhydrAMINE HCl 50 MG eCW1 ( [facility]) Prednisone 50 MG Oral Tablet predniSONE 50 MG predniSONE 50 MG 02/15/2021 12:00:00 AM EDT 1.0 {tablet} suspended predniSONE 50 MG eCW1 ([facility]) Prednisone 50 MG Oral Tablet PredniSONE 50 MG PredniSONE 50 MG 02/15/2021 12:00:00 AM EDT 1.0 {tablet} suspended PredniSONE 50 MG eCW1 ([facility]) Diphenhydramine Hydrochloride 50 MG Oral Capsule diphe nhydrAMINE HCl 50 MG diphenhydrAMINE HCl 50 MG 02/15/2021 12:00:00 AM EDT 1.0 {capsule} active diphenhydrAMINE HCl 50 MG eCW1 ( [facility]) Diphenhydramine Hydrochloride 50 MG Oral Capsule Diphe nhydrAMINE HCl 50 MG DiphenhydrAMINE HCl 50 MG 02/15/2021 12:00:00 AM EDT 1.0 {capsule} active DiphenhydrAMINE HCl 50 MG eCW1 ( [facility]) Diphenhydramine Hydrochloride 50 MG Oral Capsule diphe nhydrAMINE HCl 50 MG diphenhydrAMINE HCl 50 MG 02/15/2021 12:00:00 AM EDT 1.0 {capsule} active diphenhydrAMINE HCl 50 MG eCW1 ( [facility]) Diphenhydramine Hydrochloride 50 MG Oral Capsule diphe nhydrAMINE HCl 50 MG diphenhydrAMINE HCl 50 MG 02/15/2021 12:00:00 AM EDT 1.0 {capsule} active diphenhydrAMINE HCl 50 MG eCW1 ( [facility]) Prednisone 50 MG Oral Tablet predniSONE 50 MG predniSONE 50 MG 02/15/2021 12:00:00 AM EDT 1.0 {tablet} suspended predniSONE 50 MG eCW1 ([facility]) Diphenhydramine Hydrochloride 50 MG Oral Capsule Diphe nhydrAMINE HCl 50 MG DiphenhydrAMINE HCl 50 MG 02/15/2021 12:00:00 AM EDT 1.0 {capsule} active DiphenhydrAMINE HCl 50 MG eCW1 ( [facility]) Diphenhydramine Hydrochloride 50 MG Oral Capsule diphe nhydrAMINE HCl 50 MG diphenhydrAMINE HCl 50 MG 02/15/2021 12:00:00 AM EDT 1.0 {capsule} active diphenhydrAMINE HCl 50 MG eCW1 ( [facility]) Prednisone 50 MG Oral Tablet predniSONE 50 MG predniSONE 50 MG 02/15/2021 12:00:00 AM EDT 1.0 {tablet} suspended predniSONE 50 MG eCW1 ([facility]) Prednisone 50 MG Oral Tablet predniSONE 50 MG predniSONE 50 MG 02/15/2021 12:00:00 AM EDT 1.0 {tablet} suspended predniSONE 50 MG eCW1 ([facility]) Prednisone 50 MG Oral Tablet predniSONE 50 MG predniSONE 50 MG 02/15/2021 12:00:00 AM EDT 1.0 {tablet} suspended predniSONE 50 MG eCW1 ([facility]) Diphenhydramine Hydrochloride 50 MG Oral Capsule diphe nhydrAMINE HCl 50 MG diphenhydrAMINE HCl 50 MG 02/15/2021 12:00:00 AM EDT 1.0 {capsule} active diphenhydrAMINE HCl 50 MG eCW1 ( [facility]) Prednisone 50 MG Oral Tablet predniSONE 50 MG predniSONE 50 MG 02/15/2021 12:00:00 AM EDT 1.0 {tablet} suspended predniSONE 50 MG eCW1 ([facility]) Prednisone 50 MG Oral Tablet predniSONE 50 MG predniSONE 50 MG 02/15/2021 12:00:00 AM EDT 1.0 {tablet} suspended predniSONE 50 MG eCW1 ([facility]) Diphenhydramine Hydrochloride 50 MG Oral Capsule diphe nhydrAMINE HCl 50 MG diphenhydrAMINE HCl 50 MG 02/15/2021 12:00:00 AM EDT 1.0 {capsule} active diphenhydrAMINE HCl 50 MG eCW1 ( [facility]) Prednisone 50 MG Oral Tablet PredniSONE 50 MG PredniSONE 50 MG 02/15/2021 12:00:00 AM EDT 1.0 {tablet} suspended PredniSONE 50 MG eCW1 ([facility]) Diphenhydramine Hydrochloride 50 MG Oral Capsule Diphe nhydrAMINE HCl 50 MG DiphenhydrAMINE HCl 50 MG 02/15/2021 12:00:00 AM EDT 1.0 {capsule} active DiphenhydrAMINE HCl 50 MG eCW1 ( [facility]) Prednisone 50 MG Oral Tablet PredniSONE 50 MG PredniSONE 50 MG 02/15/2021 12:00:00 AM EDT 1.0 {tablet} suspended PredniSONE 50 MG eCW1 ([facility]) Diphenhydramine Hydrochloride 50 MG Oral Capsule diphe nhydrAMINE HCl 50 MG diphenhydrAMINE HCl 50 MG 02/15/2021 12:00:00 AM EDT 1.0 {capsule} active diphenhydrAMINE HCl 50 MG eCW1 ( [facility]) Prednisone 50 MG Oral Tablet PredniSONE 50 MG PredniSONE 50 MG 02/15/2021 12:00:00 AM EDT 1.0 {tablet} active Pr edniSONE 50 MG eCW1 ([facility]) Prednisone 50 MG Oral Tablet predniSONE 50 MG predniSONE 50 MG 02/15/2021 12:00:00 AM EDT 1.0 {tablet} suspended predniSONE 50 MG eCW1 ([facility]) Diphenhydramine Hydrochloride 50 MG Oral Capsule diphe nhydrAMINE HCl 50 MG diphenhydrAMINE HCl 50 MG 02/15/2021 12:00:00 AM EDT 1.0 {capsule} active diphenhydrAMINE HCl 50 MG eCW1 ( [facility]) Prednisone 50 MG Oral Tablet predniSONE 50 MG predniSONE 50 MG 02/15/2021 12:00:00 AM EDT 1.0 {tablet} suspended predniSONE 50 MG eCW1 ([facility]) Diphenhydramine Hydrochloride 50 MG Oral Capsule diphe nhydrAMINE HCl 50 MG diphenhydrAMINE HCl 50 MG 02/15/2021 12:00:00 AM EDT 1.0 {capsule} active diphenhydrAMINE HCl 50 MG eCW1 ( [facility]) Prednisone 50 MG Oral Tablet predniSONE 50 MG predniSONE 50 MG 02/15/2021 12:00:00 AM EDT 1.0 {tablet} suspended predniSONE 50 MG eCW1 ([facility]) Prednisone 50 MG Oral Tablet predniSONE 50 MG predniSONE 50 MG 02/15/2021 12:00:00 AM EDT 1.0 {tablet} suspended predniSONE 50 MG eCW1 ([facility]) Prednisone 50 MG Oral Tablet predniSONE 50 MG predniSONE 50 MG 02/15/2021 12:00:00 AM EDT 1.0 {tablet} suspended predniSONE 50 MG eCW1 ([facility]) Prednisone 50 MG Oral Tablet predniSONE 50 MG predniSONE 50 MG 02/15/2021 12:00:00 AM EDT 1.0 {tablet} suspended predniSONE 50 MG eCW1 ([facility]) Diphenhydramine Hydrochloride 50 MG Oral Capsule diphe nhydrAMINE HCl 50 MG diphenhydrAMINE HCl 50 MG 02/15/2021 12:00:00 AM EDT 1.0 {capsule} active diphenhydrAMINE HCl 50 MG eCW1 ( [facility]) Diphenhydramine Hydrochloride 50 MG Oral Capsule Diphe nhydrAMINE HCl 50 MG DiphenhydrAMINE HCl 50 MG 02/15/2021 12:00:00 AM EDT 1.0 {capsule} active DiphenhydrAMINE HCl 50 MG eCW1 ( [facility]) Diphenhydramine Hydrochloride 50 MG Oral Capsule diphe nhydrAMINE HCl 50 MG diphenhydrAMINE HCl 50 MG 02/15/2021 12:00:00 AM EDT 1.0 {capsule} active diphenhydrAMINE HCl 50 MG eCW1 ( [facility]) Prednisone 50 MG Oral Tablet PredniSONE 50 MG PredniSONE 50 MG 02/15/2021 12:00:00 AM EDT 1.0 {tablet} suspended PredniSONE 50 MG eCW1 ([facility]) Diphenhydramine Hydrochloride 50 MG Oral Capsule diphe nhydrAMINE HCl 50 MG diphenhydrAMINE HCl 50 MG 02/15/2021 12:00:00 AM EDT 1.0 {capsule} active diphenhydrAMINE HCl 50 MG eCW1 ( [facility]) Prednisone 50 MG Oral Tablet predniSONE 50 MG predniSONE 50 MG 02/15/2021 12:00:00 AM EDT 1.0 {tablet} suspended predniSONE 50 MG eCW1 ([facility]) Diphenhydramine Hydrochloride 50 MG Oral Capsule diphe nhydrAMINE HCl 50 MG diphenhydrAMINE HCl 50 MG 02/15/2021 12:00:00 AM EDT 1.0 {capsule} active diphenhydrAMINE HCl 50 MG eCW1 ( [facility]) Prednisone 50 MG Oral Tablet PredniSONE 50 MG PredniSONE 50 MG 02/15/2021 12:00:00 AM EDT 1.0 {tablet} suspended PredniSONE 50 MG eCW1 ([facility]) Diphenhydramine Hydrochloride 50 MG Oral Capsule diphe nhydrAMINE HCl 50 MG diphenhydrAMINE HCl 50 MG 02/15/2021 12:00:00 AM EDT 1.0 {capsule} active diphenhydrAMINE HCl 50 MG eCW1 ( [facility]) Prednisone 50 MG Oral Tablet predniSONE 50 MG predniSONE 50 MG 02/15/2021 12:00:00 AM EDT 1.0 {tablet} suspended predniSONE 50 MG eCW1 ([facility]) Diphenhydramine Hydrochloride 50 MG Oral Capsule Diphe nhydrAMINE HCl 50 MG DiphenhydrAMINE HCl 50 MG 02/15/2021 12:00:00 AM EDT 1.0 {capsule} active DiphenhydrAMINE HCl 50 MG eCW1 ( [facility]) Myrbetriq 50 MG UNK 02/06/2021 12:00:00 AM EDT 1.0 {tablet} suspended Myrbetriq 50 MG eCW1 (On license of [facility]) Myrbetriq 50 MG UNK 02/06/2021 12:00:00 AM EDT 1.0 {tablet} suspended Myrbetriq 50 MG eCW1 (On license of [facility]) Myrbetriq 50 MG UNK 02/06/2021 12:00:00 AM EDT 1.0 {tablet} suspended Myrbetriq 50 MG eCW1 (On license of [facility]) Myrbetriq 50 MG UNK 02/06/2021 12:00:00 AM EDT 1.0 {tablet} suspended Myrbetriq 50 MG eCW1 (On license of [facility]) Myrbetriq 50 MG UNK 02/06/2021 12:00:00 AM EDT 1.0 {tablet} suspended Myrbetriq 50 MG eCW1 (On license of [facility]) Myrbetriq 50 MG UNK 02/06/2021 12:00:00 AM EDT 1.0 {tablet} suspended Myrbetriq 50 MG eCW1 (On license of [facility]) Myrbetriq 50 MG UNK 02/06/2021 12:00:00 AM EDT 1.0 {tablet} suspended Myrbetriq 50 MG eCW1 (On license of [facility]) Myrbetriq 50 MG UNK 02/06/2021 12:00:00 AM EDT 1.0 {tablet} active Myrbetriq 50 MG eCW1 ([facility]) Myrbetriq 50 MG UNK 02/06/2021 12:00:00 AM EDT 1.0 {tablet} active Myrbetriq 50 MG eCW1 ([facility]) Myrbetriq 50 MG UNK 02/06/2021 12:00:00 AM EDT 1.0 {tablet} suspended Myrbetriq 50 MG eCW1 (On license of [facility]) Myrbetriq 50 MG UNK 02/06/2021 12:00:00 AM EDT 1.0 {tablet} suspended Myrbetriq 50 MG eCW1 (On license of [facility]) Myrbetriq 50 MG UNK 02/06/2021 12:00:00 AM EDT 1.0 {tablet} suspended Myrbetriq 50 MG eCW1 (On license of [facility]) Myrbetriq 50 MG UNK 02/06/2021 12:00:00 AM EDT 1.0 {tablet} suspended Myrbetriq 50 MG eCW1 (On license of [facility]) Myrbetriq 50 MG UNK 02/06/2021 12:00:00 AM EDT 1.0 {tablet} suspended Myrbetriq 50 MG eCW1 (On license of [facility]) Myrbetriq 50 MG UNK 02/06/2021 12:00:00 AM EDT 1.0 {tablet} active Myrbetriq 50 MG eCW1 ([facility]) Myrbetriq 50 MG UNK 02/06/2021 12:00:00 AM EDT 1.0 {tablet} suspended Myrbetriq 50 MG eCW1 (On license of [facility]) Myrbetriq 50 MG UNK 02/06/2021 12:00:00 AM EDT 1.0 {tablet} suspended Myrbetriq 50 MG eCW1 (On license of [facility]) Myrbetriq 50 MG UNK 02/06/2021 12:00:00 AM EDT 1.0 {tablet} active Myrbetriq 50 MG eCW1 ([facility]) Myrbetriq 50 MG UNK 02/06/2021 12:00:00 AM EDT 1.0 {tablet} suspended Myrbetriq 50 MG eCW1 (On license of [facility]) Myrbetriq 50 MG UNK 02/06/2021 12:00:00 AM EDT 1.0 {tablet} suspended Myrbetriq 50 MG eCW1 (On license of [facility]) Myrbetriq 50 MG UNK 02/06/2021 12:00:00 AM EDT 1.0 {tablet} suspended Myrbetriq 50 MG eCW1 (On license of [facility]) Myrbetriq 50 MG UNK 02/06/2021 12:00:00 AM EDT 1.0 {tablet} suspended Myrbetriq 50 MG eCW1 (On license of [facility]) Myrbetriq 50 MG UNK 02/06/2021 12:00:00 AM EDT 1.0 {tablet} suspended Myrbetriq 50 MG eCW1 (On license of [facility]) Myrbetriq 50 MG UNK 02/06/2021 12:00:00 AM EDT 1.0 {tablet} suspended Myrbetriq 50 MG eCW1 (On license of [facility]) Myrbetriq 50 MG UNK 02/06/2021 12:00:00 AM EDT 1.0 {tablet} suspended Myrbetriq 50 MG eCW1 (On license of [facility]) 24 HR Oxybutynin chloride 15 MG Extended Release Oral Tablet Oxybutynin Chloride ER 15 MG Oxybutynin Chloride ER 15 MG 12/22/2020 12:00:00 AM EST 1.0 {tablet} suspended Oxybutynin Chloride ER 15 MG eCW1 ([facility]) 24 HR Oxybutynin chloride 15 MG Extended Release Oral Tablet Oxybutynin Chloride ER 15 MG Oxybutynin Chloride ER 15 MG 12/22/2020 12:00:00 AM EST 1.0 {tablet} suspended Oxybutynin Chloride ER 15 MG eCW1 ([facility]) 24 HR Oxybutynin chloride 15 MG Extended Release Oral Tablet Oxybutynin Chloride ER 15 MG Oxybutynin Chloride ER 15 MG 12/22/2020 12:00:00 AM EST 1.0 {tablet} suspended Oxybutynin Chloride ER 15 MG eCW1 ([facility]) 24 HR Oxybutynin chloride 15 MG Extended Release Oral Tablet Oxybutynin Chloride ER 15 MG Oxybutynin Chloride ER 15 MG 12/22/2020 12:00:00 AM EST 1.0 {tablet} suspended Oxybutynin Chloride ER 15 MG eCW1 ([facility]) 24 HR Oxybutynin chloride 15 MG Extended Release Oral Tablet Oxybutynin Chloride ER 15 MG Oxybutynin Chloride ER 15 MG 12/22/2020 12:00:00 AM EST 1.0 {tablet} suspended Oxybutynin Chloride ER 15 MG eCW1 ([facility]) 24 HR Oxybutynin chloride 15 MG Extended Release Oral Tablet Oxybutynin Chloride ER 15 MG Oxybutynin Chloride ER 15 MG 12/22/2020 12:00:00 AM EST 1.0 {tablet} active Oxybutynin Chloride ER 1 5 MG eCW1 ([facility]) 24 HR Oxybutynin chloride 15 MG Extended Release Oral Tablet Oxybutynin Chloride ER 15 MG Oxybutynin Chloride ER 15 MG 12/22/2020 12:00:00 AM EST 1.0 {tablet} suspended Oxybutynin Chloride ER 15 MG eCW1 ([facility]) 24 HR Oxybutynin chloride 15 MG Extended Release Oral Tablet Oxybutynin Chloride ER 15 MG Oxybutynin Chloride ER 15 MG 12/22/2020 12:00:00 AM EST 1.0 {tablet} suspended Oxybutynin Chloride ER 15 MG eCW1 ([facility]) 24 HR Oxybutynin chloride 15 MG Extended Release Oral Tablet Oxybutynin Chloride ER 15 MG Oxybutynin Chloride ER 15 MG 12/22/2020 12:00:00 AM EST 1.0 {tablet} suspended Oxybutynin Chloride ER 15 MG eCW1 ([facility]) 24 HR Oxybutynin chloride 15 MG Extended Release Oral Tablet Oxybutynin Chloride ER 15 MG Oxybutynin Chloride ER 15 MG 12/22/2020 12:00:00 AM EST 1.0 {tablet} suspended Oxybutynin Chloride ER 15 MG eCW1 ([facility]) 24 HR Oxybutynin chloride 15 MG Extended Release Oral Tablet Oxybutynin Chloride ER 15 MG Oxybutynin Chloride ER 15 MG 12/22/2020 12:00:00 AM EST 1.0 {tablet} active Oxybutynin Chloride ER 1 5 MG eCW1 ([facility]) 24 HR Oxybutynin chloride 15 MG Extended Release Oral Tablet Oxybutynin Chloride ER 15 MG Oxybutynin Chloride ER 15 MG 12/22/2020 12:00:00 AM EST 1.0 {tablet} suspended Oxybutynin Chloride ER 15 MG eCW1 ([facility]) 24 HR Oxybutynin chloride 15 MG Extended Release Oral Tablet Oxybutynin Chloride ER 15 MG Oxybutynin Chloride ER 15 MG 12/22/2020 12:00:00 AM EST 1.0 {tablet} suspended Oxybutynin Chloride ER 15 MG eCW1 ([facility]) 24 HR Oxybutynin chloride 15 MG Extended Release Oral Tablet Oxybutynin Chloride ER 15 MG Oxybutynin Chloride ER 15 MG 12/22/2020 12:00:00 AM EST 1.0 {tablet} suspended Oxybutynin Chloride ER 15 MG eCW1 ([facility]) 24 HR Oxybutynin chloride 15 MG Extended Release Oral Tablet Oxybutynin Chloride ER 15 MG Oxybutynin Chloride ER 15 MG 12/22/2020 12:00:00 AM EST 1.0 {tablet} suspended Oxybutynin Chloride ER 15 MG eCW1 ([facility]) 24 HR Oxybutynin chloride 15 MG Extended Release Oral Tablet Oxybutynin Chloride ER 15 MG Oxybutynin Chloride ER 15 MG 12/22/2020 12:00:00 AM EST 1.0 {tablet} suspended Oxybutynin Chloride ER 15 MG eCW1 ([facility]) 24 HR Oxybutynin chloride 15 MG Extended Release Oral Tablet Oxybutynin Chloride ER 15 MG Oxybutynin Chloride ER 15 MG 12/22/2020 12:00:00 AM EST 1.0 {tablet} suspended Oxybutynin Chloride ER 15 MG eCW1 ([facility]) 24 HR Oxybutynin chloride 15 MG Extended Release Oral Tablet Oxybutynin Chloride ER 15 MG Oxybutynin Chloride ER 15 MG 12/22/2020 12:00:00 AM EST 1.0 {tablet} suspended Oxybutynin Chloride ER 15 MG eCW1 ([facility]) 24 HR Oxybutynin chloride 15 MG Extended Release Oral Tablet Oxybutynin Chloride ER 15 MG Oxybutynin Chloride ER 15 MG 12/22/2020 12:00:00 AM EST 1.0 {tablet} suspended Oxybutynin Chloride ER 15 MG eCW1 ([facility]) 24 HR Oxybutynin chloride 15 MG Extended Release Oral Tablet Oxybutynin Chloride ER 15 MG Oxybutynin Chloride ER 15 MG 12/22/2020 12:00:00 AM EST 1.0 {tablet} suspended Oxybutynin Chloride ER 15 MG eCW1 ([facility]) 24 HR Oxybutynin chloride 15 MG Extended Release Oral Tablet Oxybutynin Chloride ER 15 MG Oxybutynin Chloride ER 15 MG 12/22/2020 12:00:00 AM EST 1.0 {tablet} active Oxybutynin Chloride ER 1 5 MG eCW1 ([facility]) 24 HR Oxybutynin chloride 15 MG Extended Release Oral Tablet Oxybutynin Chloride ER 15 MG Oxybutynin Chloride ER 15 MG 12/22/2020 12:00:00 AM EST 1.0 {tablet} suspended Oxybutynin Chloride ER 15 MG eCW1 ([facility]) 24 HR Oxybutynin chloride 15 MG Extended Release Oral Tablet Oxybutynin Chloride ER 15 MG Oxybutynin Chloride ER 15 MG 12/22/2020 12:00:00 AM EST 1.0 {tablet} suspended Oxybutynin Chloride ER 15 MG eCW1 ([facility]) 24 HR Oxybutynin chloride 15 MG Extended Release Oral Tablet Oxybutynin Chloride ER 15 MG Oxybutynin Chloride ER 15 MG 12/22/2020 12:00:00 AM EST 1.0 {tablet} suspended Oxybutynin Chloride ER 15 MG eCW1 ([facility]) 24 HR Oxybutynin chloride 15 MG Extended Release Oral Tablet Oxybutynin Chloride ER 15 MG Oxybutynin Chloride ER 15 MG 12/22/2020 12:00:00 AM EST 1.0 {tablet} suspended Oxybutynin Chloride ER 15 MG eCW1 ([facility]) 24 HR Oxybutynin chloride 15 MG Extended Release Oral Tablet Oxybutynin Chloride ER 15 MG Oxybutynin Chloride ER 15 MG 12/22/2020 12:00:00 AM EST 1.0 {tablet} active Oxybutynin Chloride ER 1 5 MG eCW1 ([facility]) 24 HR Oxybutynin chloride 15 MG Extended Release Oral Tablet Oxybutynin Chloride ER 15 MG Oxybutynin Chloride ER 15 MG 12/22/2020 12:00:00 AM EST 1.0 {tablet} suspended Oxybutynin Chloride ER 15 MG eCW1 ([facility]) 24 HR Oxybutynin chloride 15 MG Extended Release Oral Tablet Oxybutynin Chloride ER 15 MG Oxybutynin Chloride ER 15 MG 12/22/2020 12:00:00 AM EST 1.0 {tablet} suspended Oxybutynin Chloride ER 15 MG eCW1 ([facility]) 24 HR Oxybutynin chloride 15 MG Extended Release Oral Tablet Oxybutynin Chloride ER 15 MG Oxybutynin Chloride ER 15 MG 12/22/2020 12:00:00 AM EST 1.0 {tablet} suspended Oxybutynin Chloride ER 15 MG eCW1 ([facility]) 3 ML Insulin Lispro 100 UNT/ML Pen Injec tor [Humalog] HumaLOG KwikPen 100 UNIT/ML HumaLOG KwikPen 100 UNIT/ML 11/22/2020 12:00:00 AM EST suspended HumaLOG KwikPen 100 UNIT/ML eCW1 ([facility]) 3 ML Insulin Lispro 100 UNT/ML Pen Injec tor [Humalog] Humalog KwikPen 100 UNIT/ML Humalog KwikPen 100 UNIT/ML 11/22/2020 12:00:00 AM EST suspended Humalog KwikPen 100 UNIT/ML eCW1 ([facility]) 3 ML Insulin Lispro 100 UNT/ML Pen Injec tor [Humalog] HumaLOG KwikPen 100 UNIT/ML HumaLOG KwikPen 100 UNIT/ML 11/22/2020 12:00:00 AM EST suspended HumaLOG KwikPen 100 UNIT/ML eCW1 ([facility]) 3 ML Insulin Lispro 100 UNT/ML Pen Injec tor [Humalog] Humalog KwikPen 100 UNIT/ML Humalog KwikPen 100 UNIT/ML 11/22/2020 12:00:00 AM EST suspended Humalog KwikPen 100 UNIT/ML eCW1 ([facility]) 3 ML Insulin Lispro 100 UNT/ML Pen Injec tor [Humalog] HumaLOG KwikPen 100 UNIT/ML HumaLOG KwikPen 100 UNIT/ML 11/22/2020 12:00:00 AM EST suspended HumaLOG KwikPen 100 UNIT/ML eCW1 ([facility]) 3 ML Insulin Lispro 100 UNT/ML Pen Injec tor [Humalog] Humalog KwikPen 100 UNIT/ML Humalog KwikPen 100 UNIT/ML 11/22/2020 12:00:00 AM EST suspended Humalog KwikPen 100 UNIT/ML eCW1 ([facility]) 3 ML Insulin Lispro 100 UNT/ML Pen Injec tor [Humalog] HumaLOG KwikPen 100 UNIT/ML HumaLOG KwikPen 100 UNIT/ML 11/22/2020 12:00:00 AM EST suspended HumaLOG KwikPen 100 UNIT/ML eCW1 ([facility]) 3 ML Insulin Lispro 100 UNT/ML Pen Injec tor [Humalog] HumaLOG KwikPen 100 UNIT/ML HumaLOG KwikPen 100 UNIT/ML 11/22/2020 12:00:00 AM EST suspended HumaLOG KwikPen 100 UNIT/ML eCW1 ([facility]) 3 ML Insulin Lispro 100 UNT/ML Pen Injec tor [Humalog] HumaLOG KwikPen 100 UNIT/ML HumaLOG KwikPen 100 UNIT/ML 11/22/2020 12:00:00 AM EST suspended HumaLOG KwikPen 100 UNIT/ML eCW1 ([facility]) 3 ML Insulin Lispro 100 UNT/ML Pen Injec tor [Humalog] Humalog KwikPen 100 UNIT/ML Humalog KwikPen 100 UNIT/ML 11/22/2020 12:00:00 AM EST active Humalog KwikPen 100 UNIT/ML eCW1 ([facility]) 3 ML Insulin Lispro 100 UNT/ML Pen Injec tor [Humalog] HumaLOG KwikPen 100 UNIT/ML HumaLOG KwikPen 100 UNIT/ML 11/22/2020 12:00:00 AM EST suspended HumaLOG KwikPen 100 UNIT/ML eCW1 ([facility]) 3 ML Insulin Lispro 100 UNT/ML Pen Injec tor [Humalog] HumaLOG KwikPen 100 UNIT/ML HumaLOG KwikPen 100 UNIT/ML 11/22/2020 12:00:00 AM EST suspended HumaLOG KwikPen 100 UNIT/ML eCW1 ([facility]) 3 ML Insulin Lispro 100 UNT/ML Pen Injec tor [Humalog] Humalog KwikPen 100 UNIT/ML Humalog KwikPen 100 UNIT/ML 11/22/2020 12:00:00 AM EST active Humalog KwikPen 100 UNIT/ML eCW1 ([facility]) 3 ML Insulin Lispro 100 UNT/ML Pen Injec tor [Humalog] HumaLOG KwikPen 100 UNIT/ML HumaLOG KwikPen 100 UNIT/ML 11/22/2020 12:00:00 AM EST suspended HumaLOG KwikPen 100 UNIT/ML eCW1 ([facility]) 3 ML Insulin Lispro 100 UNT/ML Pen Injec tor [Humalog] Humalog KwikPen 100 UNIT/ML Humalog KwikPen 100 UNIT/ML 11/22/2020 12:00:00 AM EST suspended Humalog KwikPen 100 UNIT/ML eCW1 ([facility]) 3 ML Insulin Lispro 100 UNT/ML Pen Injec tor [Humalog] HumaLOG KwikPen 100 UNIT/ML HumaLOG KwikPen 100 UNIT/ML 11/22/2020 12:00:00 AM EST suspended HumaLOG KwikPen 100 UNIT/ML eCW1 ([facility]) 3 ML Insulin Lispro 100 UNT/ML Pen Injec tor [Humalog] HumaLOG KwikPen 100 UNIT/ML HumaLOG KwikPen 100 UNIT/ML 11/22/2020 12:00:00 AM EST suspended HumaLOG KwikPen 100 UNIT/ML eCW1 ([facility]) 3 ML Insulin Lispro 100 UNT/ML Pen Injec tor [Humalog] HumaLOG KwikPen 100 UNIT/ML HumaLOG KwikPen 100 UNIT/ML 11/22/2020 12:00:00 AM EST suspended HumaLOG KwikPen 100 UNIT/ML eCW1 ([facility]) 3 ML Insulin Lispro 100 UNT/ML Pen Injec tor [Humalog] Humalog KwikPen 100 UNIT/ML Humalog KwikPen 100 UNIT/ML 11/22/2020 12:00:00 AM EST suspended Humalog KwikPen 100 UNIT/ML eCW1 ([facility]) 3 ML Insulin Lispro 100 UNT/ML Pen Injec tor [Humalog] Humalog KwikPen 100 UNIT/ML Humalog KwikPen 100 UNIT/ML 11/22/2020 12:00:00 AM EST suspended Humalog KwikPen 100 UNIT/ML eCW1 ([facility]) 3 ML Insulin Lispro 100 UNT/ML Pen Injec tor [Humalog] HumaLOG KwikPen 100 UNIT/ML HumaLOG KwikPen 100 UNIT/ML 11/22/2020 12:00:00 AM EST suspended HumaLOG KwikPen 100 UNIT/ML eCW1 ([facility]) 3 ML Insulin Lispro 100 UNT/ML Pen Injec tor [Humalog] Humalog KwikPen 100 UNIT/ML Humalog KwikPen 100 UNIT/ML 11/22/2020 12:00:00 AM EST suspended Humalog KwikPen 100 UNIT/ML eCW1 ([facility]) 3 ML Insulin Lispro 100 UNT/ML Pen Injec tor [Humalog] Humalog KwikPen 100 UNIT/ML Humalog KwikPen 100 UNIT/ML 11/22/2020 12:00:00 AM EST suspended Humalog KwikPen 100 UNIT/ML eCW1 ([facility]) 3 ML Insulin Lispro 100 UNT/ML Pen Injec tor [Humalog] HumaLOG KwikPen 100 UNIT/ML HumaLOG KwikPen 100 UNIT/ML 11/22/2020 12:00:00 AM EST suspended HumaLOG KwikPen 100 UNIT/ML eCW1 ([facility]) 3 ML Insulin Lispro 100 UNT/ML Pen Injec tor [Humalog] Humalog KwikPen 100 UNIT/ML Humalog KwikPen 100 UNIT/ML 11/22/2020 12:00:00 AM EST active Humalog KwikPen 100 UNIT/ML eCW1 ([facility]) 3 ML Insulin Lispro 100 UNT/ML Pen Injec tor [Humalog] Humalog KwikPen 100 UNIT/ML Humalog KwikPen 100 UNIT/ML 11/22/2020 12:00:00 AM EST suspended Humalog KwikPen 100 UNIT/ML eCW1 ([facility]) 3 ML Insulin Lispro 100 UNT/ML Pen Injec tor [Humalog] HumaLOG KwikPen 100 UNIT/ML HumaLOG KwikPen 100 UNIT/ML 11/22/2020 12:00:00 AM EST suspended HumaLOG KwikPen 100 UNIT/ML eCW1 ([facility]) 3 ML Insulin Lispro 100 UNT/ML Pen Injec tor [Humalog] Humalog KwikPen 100 UNIT/ML Humalog KwikPen 100 UNIT/ML 11/22/2020 12:00:00 AM EST suspended Humalog KwikPen 100 UNIT/ML eCW1 ([facility]) 3 ML Insulin Lispro 100 UNT/ML Pen Injec tor [Humalog] HumaLOG KwikPen 100 UNIT/ML HumaLOG KwikPen 100 UNIT/ML 11/22/2020 12:00:00 AM EST suspended HumaLOG KwikPen 100 UNIT/ML eCW1 ([facility]) 3 ML Insulin Lispro 100 UNT/ML Pen Injec tor [Humalog] Humalog KwikPen 100 UNIT/ML Humalog KwikPen 100 UNIT/ML 11/22/2020 12:00:00 AM EST active Humalog KwikPen 100 UNIT/ML eCW1 ([facility]) atorvastatin 10 MG Oral Tablet ATORVASTATIN CALCIUM 10/23/2020 1 2:00:00 AM EST tablet 90 TAKE ONE TABLET BY MOUTH EVERY D AY TAKE ONE TABLET BY MOUTH EVERY DAY SOLD: 10/23/2020 Karina Dasilva s [facility] Brief 32"-44" - [facility] Adult Brief 32"- 44" - 10/18/2020 12:00:00 AM EST suspended Simpl [facility] Adult Brief 32"-44" - eCW1 ([facility]) [facility] Adult Brief 32"-44" - [facility] Adult Brief 32"- 44" - 10/18/2020 12:00:00 AM EST suspended Simpl [facility] Adult Brief 32"-44" - eCW1 ([facility]) [facility] Adult Brief 32"-44" - [facility] Adult Brief 32"- 44" - 10/18/2020 12:00:00 AM EST suspended [facility] Adult Brief 32"-44" - eCW1 ([facility]) [facility] Adult Brief 32"-44" - [facility] Adult Brief 32"- 44" - 10/18/2020 12:00:00 AM EST suspended [facility] Adult Brief 32"-44" - eCW1 ([facility]) [facility] Adult Brief 32"-44" - [facility] Adult Brief 32"- 44" - 10/18/2020 12:00:00 AM EST active Simplici ty Adult Brief 32"-44" - eCW1 ([facility]) [facility] Adult Brief 32"-44" - [facility] Adult Brief 32"- 44" - 10/18/2020 12:00:00 AM EST suspended [facility] Adult Brief 32"-44" - eCW1 ([facility]) [facility] Adult Brief 32"-44" - [facility] Adult Brief 32"- 44" - 10/18/2020 12:00:00 AM EST suspended [facility] Adult Brief 32"-44" - eCW1 ([facility]) [facility] Adult Brief 32"-44" - [facility] Adult Brief 32"- 44" - 10/18/2020 12:00:00 AM EST active Simplici ty Adult Brief 32"-44" - eCW1 ([facility]) [facility] Adult Brief 32"-44" - [facility] Adult Brief 32"- 44" - 10/18/2020 12:00:00 AM EST suspended Simpl [facility] Adult Brief 32"-44" - eCW1 ([facility]) [facility] Adult Brief 32"-44" - [facility] Adult Brief 32"- 44" - 10/18/2020 12:00:00 AM EST active Simplici ty Adult Brief 32"-44" - eCW1 ([facility]) [facility] Adult Brief 32"-44" - [facility] Adult Brief 32"- 44" - 10/18/2020 12:00:00 AM EST suspended [facility] Adult Brief 32"-44" - eCW1 ([facility]) [facility] Adult Brief 32"-44" - [facility] Adult Brief 32"- 44" - 10/18/2020 12:00:00 AM EST suspended [facility] Adult Brief 32"-44" - eCW1 ([facility]) [facility] Adult Brief 32"-44" - [facility] Adult Brief 32"- 44" - 10/18/2020 12:00:00 AM EST suspended [facility] Adult Brief 32"-44" - eCW1 ([facility]) [facility] Adult Brief 32"-44" - [facility] Adult Brief 32"- 44" - 10/18/2020 12:00:00 AM EST suspended [facility] Adult Brief 32"-44" - eCW1 ([facility]) [facility] Adult Brief 32"-44" - [facility] Adult Brief 32"- 44" - 10/18/2020 12:00:00 AM EST suspended [facility] Adult Brief 32"-44" - eCW1 ([facility]) [facility] Adult Brief 32"-44" - [facility] Adult Brief 32"- 44" - 10/18/2020 12:00:00 AM EST suspended [facility] Adult Brief 32"-44" - eCW1 ([facility]) [facility] Adult Brief 32"-44" - [facility] Adult Brief 32"- 44" - 10/18/2020 12:00:00 AM EST suspended [facility] Adult Brief 32"-44" - eCW1 ([facility]) [facility] Adult Brief 32"-44" - [facility] Adult Brief 32"- 44" - 10/18/2020 12:00:00 AM EST suspended [facility] Adult Brief 32"-44" - eCW1 ([facility]) [facility] Adult Brief 32"-44" - [facility] Adult Brief 32"- 44" - 10/18/2020 12:00:00 AM EST suspended [facility]pl [facility] Adult Brief 32"-44" - eCW1 ([facility]) [facility] Adult Brief 32"-44" - [facility] Adult Brief 32"- 44" - 10/18/2020 12:00:00 AM EST active Simplici ty Adult Brief 32"-44" - eCW1 ([facility]) [facility] Adult Brief 32"-44" - [facility] Adult Brief 32"- 44" - 10/18/2020 12:00:00 AM EST suspended Simpl [facility] Adult Brief 32"-44" - eCW1 ([facility]) [facility] Adult Brief 32"-44" - [facility] Adult Brief 32"- 44" - 10/18/2020 12:00:00 AM EST suspended Simpl [facility] Adult Brief 32"-44" - eCW1 ([facility]) [facility] Adult Brief 32"-44" - [facility] Adult Brief 32"- 44" - 10/18/2020 12:00:00 AM EST active Simplici ty Adult Brief 32"-44" - eCW1 ([facility]) [facility] Adult Brief 32"-44" - [facility] Adult Brief 32"- 44" - 10/18/2020 12:00:00 AM EST active Simplici ty Adult Brief 32"-44" - eCW1 ([facility]) [facility] Adult Brief 32"-44" - [facility] Adult Brief 32"- 44" - 10/18/2020 12:00:00 AM EST suspended Simpl icity Adult Brief 32"-44" - eCW1 ([facility]) [facility] Adult Brief 32"-44" - [facility] Adult Brief 32"- 44" - 10/18/2020 12:00:00 AM EST suspended Simpl [facility] Adult Brief 32"-44" - eCW1 ([facility]) [facility] Adult Brief 32"-44" - [facility] Adult Brief 32"- 44" - 10/18/2020 12:00:00 AM EST active Simplici ty Adult Brief 32"-44" - eCW1 ([facility]) [facility] Adult Brief 32"-44" - [facility] Adult Brief 32"- 44" - 10/18/2020 12:00:00 AM EST suspended Simpl icity Adult Brief 32"-44" - eCW1 ([facility]) [facility] Adult Brief 32"-44" - [facility] Adult Brief 32"- 44" - 10/18/2020 12:00:00 AM EST suspended Simpl icity Adult Brief 32"-44" - eCW1 ([facility]) [facility] Adult Brief 32"-44" - [facility] Adult Brief 32"- 44" - 10/18/2020 12:00:00 AM EST suspended Simpl icity Adult Brief 32"-44" - eCW1 ([facility]) [facility] Adult Brief 32"-44" - [facility] Adult Brief 32"- 44" - 10/18/2020 12:00:00 AM EST suspended Simpl icity Adult Brief 32"-44" - eCW1 ([facility]) [facility] Adult Brief 32"-44" - [facility] Adult Brief 32"- 44" - 10/18/2020 12:00:00 AM EST suspended Simpl icity Adult Brief 32"-44" - eCW1 ([facility]) [facility] Adult Brief 32"-44" - [facility] Adult Brief 32"- 44" - 10/18/2020 12:00:00 AM EST suspended Simpl [facility] Adult Brief 32"-44" - eCW1 ([facility]) NITROFURANTOIN, MACROCRYSTALS 25 MG / Ni trofurantoin, Monohydrate 75 MG Oral Capsule [Macrobid] Macrobid 100 MG Macrobid 100 MG 09/23/2020 12:00:00 AM EST active Macrobid 100 MG eCW1 ([facility]) NITROFURANTOIN, MACROCRYSTALS 25 MG / Ni trofurantoin, Monohydrate 75 MG Oral Capsule [Macrobid] Macrobid 100 MG Macrobid 100 MG 09/23/2020 12:00:00 AM EST active Macrobid 100 MG eCW1 ([facility], [facility]) NITROFURANTOIN, MACROCRYSTALS 25 MG / Ni trofurantoin, Monohydrate 75 MG Oral Capsule [Macrobid] Macrobid 100 MG Macrobid 100 MG 09/23/2020 12:00:00 AM EST active Macrobid 100 MG eCW1 ([facility], [facility]) NITROFURANTOIN, MACROCRYSTALS 25 MG / Ni trofurantoin, Monohydrate 75 MG Oral Capsule [Macrobid] Macrobid 100 MG Macrobid 100 MG 09/23/2020 12:00:00 AM EST active Macrobid 100 MG eCW1 ([facility]) NITROFURANTOIN, MACROCRYSTALS 25 MG / Ni trofurantoin, Monohydrate 75 MG Oral Capsule [Macrobid] Macrobid 100 MG Macrobid 100 MG 09/23/2020 12:00:00 AM EST active Macrobid 100 MG eCW1 ([facility]) NITROFURANTOIN, MACROCRYSTALS 25 MG / Ni trofurantoin, Monohydrate 75 MG Oral Capsule [Macrobid] Macrobid 100 MG Macrobid 100 MG 09/23/2020 12:00:00 AM EST active Macrobid 100 MG eCW1 ([facility]) NITROFURANTOIN, MACROCRYSTALS 25 MG / Ni trofurantoin, Monohydrate 75 MG Oral Capsule [Macrobid] Macrobid 100 MG Macrobid 100 MG 09/23/2020 12:00:00 AM EST active Macrobid 100 MG eCW1 ([facility]) NITROFURANTOIN, MACROCRYSTALS 25 MG / Ni trofurantoin, Monohydrate 75 MG Oral Capsule [Macrobid] Macrobid 100 MG Macrobid 100 MG 09/23/2020 12:00:00 AM EST active Macrobid 100 MG eCW1 ([facility]) NITROFURANTOIN, MACROCRYSTALS 25 MG / Ni trofurantoin, Monohydrate 75 MG Oral Capsule [Macrobid] Macrobid 100 MG Macrobid 100 MG 09/23/2020 12:00:00 AM EST active Macrobid 100 MG eCW1 ([facility]) NITROFURANTOIN, MACROCRYSTALS 25 MG / Ni trofurantoin, Monohydrate 75 MG Oral Capsule [Macrobid] Macrobid 100 MG Macrobid 100 MG 09/23/2020 12:00:00 AM EST active Macrobid 100 MG eCW1 ([facility]) NITROFURANTOIN, MACROCRYSTALS 25 MG / Ni trofurantoin, Monohydrate 75 MG Oral Capsule [Macrobid] Macrobid 100 MG Macrobid 100 MG 09/23/2020 12:00:00 AM EST active Macrobid 100 MG eCW1 ([facility]) NITROFURANTOIN, MACROCRYSTALS 25 MG / Ni trofurantoin, Monohydrate 75 MG Oral Capsule [Macrobid] Macrobid 100 MG Macrobid 100 MG 09/23/2020 12:00:00 AM EST active Macrobid 100 MG eCW1 ([facility]) NITROFURANTOIN, MACROCRYSTALS 25 MG / Ni trofurantoin, Monohydrate 75 MG Oral Capsule [Macrobid] Macrobid 100 MG Macrobid 100 MG 09/23/2020 12:00:00 AM EST active Macrobid 100 MG eCW1 (Formerly [facility], [facility]) NITROFURANTOIN, MACROCRYSTALS 25 MG / Ni trofurantoin, Monohydrate 75 MG Oral Capsule [Macrobid] Macrobid 100 MG Macrobid 100 MG 09/23/2020 12:00:00 AM EST active Macrobid 100 MG eCW1 (Formerly [facility], [facility]) NITROFURANTOIN, MACROCRYSTALS 25 MG / Ni trofurantoin, Monohydrate 75 MG Oral Capsule [Macrobid] Macrobid 100 MG Macrobid 100 MG 09/23/2020 12:00:00 AM EST active Macrobid 100 MG eCW1 (Formerly [facility], [facility]) NITROFURANTOIN, MACROCRYSTALS 25 MG / Ni trofurantoin, Monohydrate 75 MG Oral Capsule [Macrobid] Macrobid 100 MG Macrobid 100 MG 09/23/2020 12:00:00 AM EST active Macrobid 100 MG eCW1 (Formerly [facility], [facility]) NITROFURANTOIN, MACROCRYSTALS 25 MG / Ni trofurantoin, Monohydrate 75 MG Oral Capsule [Macrobid] Macrobid 100 MG Macrobid 100 MG 09/23/2020 12:00:00 AM EST active Macrobid 100 MG eCW1 (Formerly [facility], [facility]) NITROFURANTOIN, MACROCRYSTALS 25 MG / Ni trofurantoin, Monohydrate 75 MG Oral Capsule [Macrobid] Macrobid 100 MG Macrobid 100 MG 09/23/2020 12:00:00 AM EST active Macrobid 100 MG eCW1 (Formerly [facility], [facility]) NITROFURANTOIN, MACROCRYSTALS 25 MG / Ni trofurantoin, Monohydrate 75 MG Oral Capsule [Macrobid] Macrobid 100 MG Macrobid 100 MG 09/23/2020 12:00:00 AM EST active Macrobid 100 MG eCW1 (Formerly [facility], [facility]) NITROFURANTOIN, MACROCRYSTALS 25 MG / Ni trofurantoin, Monohydrate 75 MG Oral Capsule [Macrobid] Macrobid 100 MG Macrobid 100 MG 09/23/2020 12:00:00 AM EST active Macrobid 100 MG eCW1 (Formerly [facility], [facility]) NITROFURANTOIN, MACROCRYSTALS 25 MG / Ni trofurantoin, Monohydrate 75 MG Oral Capsule [Macrobid] Macrobid 100 MG Macrobid 100 MG 09/23/2020 12:00:00 AM EST active Macrobid 100 MG eCW1 (Formerly [facility], [facility]) NITROFURANTOIN, MACROCRYSTALS 25 MG / Ni trofurantoin, Monohydrate 75 MG Oral Capsule [Macrobid] Macrobid 100 MG Macrobid 100 MG 09/23/2020 12:00:00 AM EST active Macrobid 100 MG eCW1 (Formerly [facility], [facility]) NITROFURANTOIN, MACROCRYSTALS 25 MG / Ni trofurantoin, Monohydrate 75 MG Oral Capsule [Macrobid] Macrobid 100 MG Macrobid 100 MG 09/23/2020 12:00:00 AM EST active Macrobid 100 MG eCW1 (Formerly [facility], [facility]) NITROFURANTOIN, MACROCRYSTALS 25 MG / Ni trofurantoin, Monohydrate 75 MG Oral Capsule [Macrobid] Macrobid 100 MG Macrobid 100 MG 09/23/2020 12:00:00 AM EST active Macrobid 100 MG eCW1 (Formerly [facility], [facility]) NITROFURANTOIN, MACROCRYSTALS 25 MG / Ni trofurantoin, Monohydrate 75 MG Oral Capsule [Macrobid] Macrobid 100 MG Macrobid 100 MG 09/23/2020 12:00:00 AM EST active Macrobid 100 MG eCW1 (Formerly [facility], [facility]) NITROFURANTOIN, MACROCRYSTALS 25 MG / Ni trofurantoin, Monohydrate 75 MG Oral Capsule [Macrobid] Macrobid 100 MG Macrobid 100 MG 09/23/2020 12:00:00 AM EST active Macrobid 100 MG eCW1 (Formerly [facility], [facility]) NITROFURANTOIN, MACROCRYSTALS 25 MG / Ni trofurantoin, Monohydrate 75 MG Oral Capsule [Macrobid] Macrobid 100 MG Macrobid 100 MG 09/23/2020 12:00:00 AM EST active Macrobid 100 MG eCW1 (Formerly [facility], [facility]) NITROFURANTOIN, MACROCRYSTALS 25 MG / Ni trofurantoin, Monohydrate 75 MG Oral Capsule [Macrobid] Macrobid 100 MG Macrobid 100 MG 09/23/2020 12:00:00 AM EST active Macrobid 100 MG eCW1 (Formerly [facility], [facility]) NITROFURANTOIN, MACROCRYSTALS 25 MG / Ni trofurantoin, Monohydrate 75 MG Oral Capsule [Macrobid] Macrobid 100 MG Macrobid 100 MG 09/23/2020 12:00:00 AM EST active Macrobid 100 MG eCW1 (Formerly [facility], [facility]) NITROFURANTOIN, MACROCRYSTALS 25 MG / Ni trofurantoin, Monohydrate 75 MG Oral Capsule [Macrobid] Macrobid 100 MG Macrobid 100 MG 09/23/2020 12:00:00 AM EST active Macrobid 100 MG eCW1 (Formerly [facility], [facility]) NITROFURANTOIN, MACROCRYSTALS 25 MG / Ni trofurantoin, Monohydrate 75 MG Oral Capsule [Macrobid] Macrobid 100 MG Macrobid 100 MG 09/23/2020 12:00:00 AM EST active Macrobid 100 MG eCW1 (Formerly [facility], [facility]) NITROFURANTOIN, MACROCRYSTALS 25 MG / Ni trofurantoin, Monohydrate 75 MG Oral Capsule [Macrobid] Macrobid 100 MG Macrobid 100 MG 09/23/2020 12:00:00 AM EST active Macrobid 100 MG eCW1 (Formerly [facility], [facility]) NITROFURANTOIN, MACROCRYSTALS 25 MG / Ni trofurantoin, Monohydrate 75 MG Oral Capsule [Macrobid] Macrobid 100 MG Macrobid 100 MG 09/23/2020 12:00:00 AM EST active Macrobid 100 MG eCW1 (Formerly [facility], [facility]) NITROFURANTOIN, MACROCRYSTALS 25 MG / Ni trofurantoin, Monohydrate 75 MG Oral Capsule [Macrobid] Macrobid 100 MG Macrobid 100 MG 09/23/2020 12:00:00 AM EST active Macrobid 100 MG eCW1 (Formerly [facility], [facility]) NITROFURANTOIN, MACROCRYSTALS 25 MG / Ni trofurantoin, Monohydrate 75 MG Oral Capsule [Macrobid] Macrobid 100 MG Macrobid 100 MG 09/23/2020 12:00:00 AM EST active Macrobid 100 MG eCW1 (Formerly [facility], [facility]) NITROFURANTOIN, MACROCRYSTALS 25 MG / Ni trofurantoin, Monohydrate 75 MG Oral Capsule [Macrobid] Macrobid 100 MG Macrobid 100 MG 09/23/2020 12:00:00 AM EST active Macrobid 100 MG eCW1 (Formerly [facility], [facility]) Sulfamethoxazole 800 MG / Trimethoprim 1 60 MG Oral Tablet [Bactrim] Bactrim DS 800-160 MG Bactrim DS 800-160 MG 08/24/2020 12:00:00 AM EST 1.0 {table t} suspended Bactrim DS 800-160 MG eCW1 ( [facility]) Oxybutynin chloride 5 MG Oral Tablet Oxybutynin Chlori de 5 MG Oxybutynin Chloride 5 MG 08/24/2020 12:00:00 AM EST 1.0 {tablet} suspended Oxybutynin Chloride 5 MG eCW1 ([facility]) Sulfamethoxazole 800 MG / Trimethoprim 1 60 MG Oral Tablet [Bactrim] Bactrim DS 800-160 MG Bactrim DS 800-160 MG 08/24/2020 12:00:00 AM EST 1.0 {table t} suspended Bactrim DS 800-160 MG eCW1 ( [facility]) Oxybutynin chloride 5 MG Oral Tablet Oxybutynin Chlori de 5 MG Oxybutynin Chloride 5 MG 08/24/2020 12:00:00 AM EST 1.0 {tablet} suspended Oxybutynin Chloride 5 MG eCW1 ([facility]) Oxybutynin chloride 5 MG Oral Tablet Oxybutynin Chlori de 5 MG Oxybutynin Chloride 5 MG 08/24/2020 12:00:00 AM EST 1.0 {tablet} suspended Oxybutynin Chloride 5 MG eCW1 ([facility]) Sulfamethoxazole 800 MG / Trimethoprim 1 60 MG Oral Tablet [Bactrim] Bactrim DS 800-160 MG Bactrim DS 800-160 MG 08/24/2020 12:00:00 AM EST 1.0 {table t} suspended Bactrim DS 800-160 MG eCW1 ( [facility]) Oxybutynin chloride 5 MG Oral Tablet Oxybutynin Chlori de 5 MG Oxybutynin Chloride 5 MG 08/24/2020 12:00:00 AM EST 1.0 {tablet} suspended Oxybutynin Chloride 5 MG eCW1 ([facility]) Sulfamethoxazole 800 MG / Trimethoprim 1 60 MG Oral Tablet [Bactrim] Bactrim DS 800-160 MG Bactrim DS 800-160 MG 08/24/2020 12:00:00 AM EST 1.0 {table t} suspended Bactrim DS 800-160 MG eCW1 ( [facility]) Sulfamethoxazole 800 MG / Trimethoprim 1 60 MG Oral Tablet [Bactrim] Bactrim DS 800-160 MG Bactrim DS 800-160 MG 08/24/2020 12:00:00 AM EST 1.0 {table t} suspended Bactrim DS 800-160 MG eCW1 ( [facility]) Oxybutynin chloride 5 MG Oral Tablet Oxybutynin Chlori de 5 MG Oxybutynin Chloride 5 MG 08/24/2020 12:00:00 AM EST 1.0 {tablet} suspended Oxybutynin Chloride 5 MG eCW1 ([facility]) Oxybutynin chloride 5 MG Oral Tablet Oxybutynin Chlori de 5 MG Oxybutynin Chloride 5 MG 08/24/2020 12:00:00 AM EST 1.0 {tablet} suspended Oxybutynin Chloride 5 MG eCW1 ([facility]) Oxybutynin chloride 5 MG Oral Tablet Oxybutynin Chlori de 5 MG Oxybutynin Chloride 5 MG 08/24/2020 12:00:00 AM EST 1.0 {tablet} suspended Oxybutynin Chloride 5 MG eCW1 ([facility]) Sulfamethoxazole 800 MG / Trimethoprim 1 60 MG Oral Tablet [Bactrim] Bactrim DS 800-160 MG Bactrim DS 800-160 MG 08/24/2020 12:00:00 AM EST 1.0 {table t} active Bactrim DS 800-160 MG eCW1 ( [facility]) Sulfamethoxazole 800 MG / Trimethoprim 1 60 MG Oral Tablet [Bactrim] Bactrim DS 800-160 MG Bactrim DS 800-160 MG 08/24/2020 12:00:00 AM EST 1.0 {table t} active Bactrim DS 800-160 MG eCW1 ( [facility]) Oxybutynin chloride 5 MG Oral Tablet Oxybutynin Chlori de 5 MG Oxybutynin Chloride 5 MG 08/24/2020 12:00:00 AM EST 1.0 {tablet} active Oxybutynin Chloride 5 MG eCW1 ([facility]) Oxybutynin chloride 5 MG Oral Tablet Oxybutynin Chlori de 5 MG Oxybutynin Chloride 5 MG 08/24/2020 12:00:00 AM EST 1.0 {tablet} active Oxybutynin Chloride 5 MG eCW1 ([facility]) Sulfamethoxazole 800 MG / Trimethoprim 1 60 MG Oral Tablet [Bactrim] Bactrim DS 800-160 MG Bactrim DS 800-160 MG 08/24/2020 12:00:00 AM EST 1.0 {table t} suspended Bactrim DS 800-160 MG eCW1 ( [facility]) Oxybutynin chloride 5 MG Oral Tablet Oxybutynin Chlori de 5 MG Oxybutynin Chloride 5 MG 08/24/2020 12:00:00 AM EST 1.0 {tablet} suspended Oxybutynin Chloride 5 MG eCW1 ([facility]) Sulfamethoxazole 800 MG / Trimethoprim 1 60 MG Oral Tablet [Bactrim] Bactrim DS 800-160 MG Bactrim DS 800-160 MG 08/24/2020 12:00:00 AM EST 1.0 {table t} suspended Bactrim DS 800-160 MG eCW1 ( [facility]) Oxybutynin chloride 5 MG Oral Tablet Oxybutynin Chlori de 5 MG Oxybutynin Chloride 5 MG 08/24/2020 12:00:00 AM EST 1.0 {tablet} suspended Oxybutynin Chloride 5 MG eCW1 ([facility]) Sulfamethoxazole 800 MG / Trimethoprim 1 60 MG Oral Tablet [Bactrim] Bactrim DS 800-160 MG Bactrim DS 800-160 MG 08/24/2020 12:00:00 AM EST 1.0 {table t} suspended Bactrim DS 800-160 MG eCW1 ( [facility]) Oxybutynin chloride 5 MG Oral Tablet Oxybutynin Chlori de 5 MG Oxybutynin Chloride 5 MG 08/24/2020 12:00:00 AM EST 1.0 {tablet} suspended Oxybutynin Chloride 5 MG eCW1 ([facility]) Sulfamethoxazole 800 MG / Trimethoprim 1 60 MG Oral Tablet [Bactrim] Bactrim DS 800-160 MG Bactrim DS 800-160 MG 08/24/2020 12:00:00 AM EST 1.0 {table t} suspended Bactrim DS 800-160 MG eCW1 ( [facility]) Sulfamethoxazole 800 MG / Trimethoprim 1 60 MG Oral Tablet [Bactrim] Bactrim DS 800-160 MG Bactrim DS 800-160 MG 08/24/2020 12:00:00 AM EST 1.0 {table t} suspended Bactrim DS 800-160 MG eCW1 ( [facility]) Oxybutynin chloride 5 MG Oral Tablet Oxybutynin Chlori de 5 MG Oxybutynin Chloride 5 MG 08/24/2020 12:00:00 AM EST 1.0 {tablet} suspended Oxybutynin Chloride 5 MG eCW1 ([facility]) Sulfamethoxazole 800 MG / Trimethoprim 1 60 MG Oral Tablet [Bactrim] Bactrim DS 800-160 MG Bactrim DS 800-160 MG 08/24/2020 12:00:00 AM EST 1.0 {table t} suspended Bactrim DS 800-160 MG eCW1 ( [facility]) Oxybutynin chloride 5 MG Oral Tablet Oxybutynin Chlori de 5 MG Oxybutynin Chloride 5 MG 08/24/2020 12:00:00 AM EST 1.0 {tablet} suspended Oxybutynin Chloride 5 MG eCW1 ([facility]) Oxybutynin chloride 5 MG Oral Tablet Oxybutynin Chlori de 5 MG Oxybutynin Chloride 5 MG 08/24/2020 12:00:00 AM EST 1.0 {tablet} active Oxybutynin Chloride 5 MG eCW1 ([facility]) Oxybutynin chloride 5 MG Oral Tablet Oxybutynin Chlori de 5 MG Oxybutynin Chloride 5 MG 08/24/2020 12:00:00 AM EST 1.0 {tablet} suspended Oxybutynin Chloride 5 MG eCW1 ([facility]) Oxybutynin chloride 5 MG Oral Tablet Oxybutynin Chlori de 5 MG Oxybutynin Chloride 5 MG 08/24/2020 12:00:00 AM EST 1.0 {tablet} suspended Oxybutynin Chloride 5 MG eCW1 ([facility]) Oxybutynin chloride 5 MG Oral Tablet Oxybutynin Chlori de 5 MG Oxybutynin Chloride 5 MG 08/24/2020 12:00:00 AM EST 1.0 {tablet} suspended Oxybutynin Chloride 5 MG eCW1 ([facility]) Oxybutynin chloride 5 MG Oral Tablet Oxybutynin Chlori de 5 MG Oxybutynin Chloride 5 MG 08/24/2020 12:00:00 AM EST 1.0 {tablet} suspended Oxybutynin Chloride 5 MG eCW1 ([facility]) Sulfamethoxazole 800 MG / Trimethoprim 1 60 MG Oral Tablet [Bactrim] Bactrim DS 800-160 MG Bactrim DS 800-160 MG 08/24/2020 12:00:00 AM EST 1.0 {table t} suspended Bactrim DS 800-160 MG eCW1 ( [facility]) Oxybutynin chloride 5 MG Oral Tablet Oxybutynin Chlori de 5 MG Oxybutynin Chloride 5 MG 08/24/2020 12:00:00 AM EST 1.0 {tablet} active Oxybutynin Chloride 5 MG eCW1 ([facility]) Sulfamethoxazole 800 MG / Trimethoprim 1 60 MG Oral Tablet [Bactrim] Bactrim DS 800-160 MG Bactrim DS 800-160 MG 08/24/2020 12:00:00 AM EST 1.0 {table t} suspended Bactrim DS 800-160 MG eCW1 ( [facility]) Oxybutynin chloride 5 MG Oral Tablet Oxybutynin Chlori de 5 MG Oxybutynin Chloride 5 MG 08/24/2020 12:00:00 AM EST 1.0 {tablet} suspended Oxybutynin Chloride 5 MG eCW1 ([facility]) Oxybutynin chloride 5 MG Oral Tablet Oxybutynin Chlori de 5 MG Oxybutynin Chloride 5 MG 08/24/2020 12:00:00 AM EST 1.0 {tablet} suspended Oxybutynin Chloride 5 MG eCW1 ([facility]) Sulfamethoxazole 800 MG / Trimethoprim 1 60 MG Oral Tablet [Bactrim] Bactrim DS 800-160 MG Bactrim DS 800-160 MG 08/24/2020 12:00:00 AM EST 1.0 {table t} active Bactrim DS 800-160 MG eCW1 ( [facility]) Oxybutynin chloride 5 MG Oral Tablet Oxybutynin Chlori de 5 MG Oxybutynin Chloride 5 MG 08/24/2020 12:00:00 AM EST 1.0 {tablet} active Oxybutynin Chloride 5 MG eCW1 ([facility]) Sulfamethoxazole 800 MG / Trimethoprim 1 60 MG Oral Tablet [Bactrim] Bactrim DS 800-160 MG Bactrim DS 800-160 MG 08/24/2020 12:00:00 AM EST 1.0 {table t} suspended Bactrim DS 800-160 MG eCW1 ( [facility]) Oxybutynin chloride 5 MG Oral Tablet Oxybutynin Chlori de 5 MG Oxybutynin Chloride 5 MG 08/24/2020 12:00:00 AM EST 1.0 {tablet} suspended Oxybutynin Chloride 5 MG eCW1 ([facility]) Sulfamethoxazole 800 MG / Trimethoprim 1 60 MG Oral Tablet [Bactrim] Bactrim DS 800-160 MG Bactrim DS 800-160 MG 08/24/2020 12:00:00 AM EST 1.0 {table t} suspended Bactrim DS 800-160 MG eCW1 ( [facility]) Oxybutynin chloride 5 MG Oral Tablet Oxybutynin Chlori de 5 MG Oxybutynin Chloride 5 MG 08/24/2020 12:00:00 AM EST 1.0 {tablet} active Oxybutynin Chloride 5 MG eCW1 ([facility]) Oxybutynin chloride 5 MG Oral Tablet Oxybutynin Chlori de 5 MG Oxybutynin Chloride 5 MG 08/24/2020 12:00:00 AM EST 1.0 {tablet} suspended Oxybutynin Chloride 5 MG eCW1 ([facility]) Sulfamethoxazole 800 MG / Trimethoprim 1 60 MG Oral Tablet [Bactrim] Bactrim DS 800-160 MG Bactrim DS 800-160 MG 08/24/2020 12:00:00 AM EST 1.0 {table t} suspended Bactrim DS 800-160 MG eCW1 ( [facility]) Sulfamethoxazole 800 MG / Trimethoprim 1 60 MG Oral Tablet [Bactrim] Bactrim DS 800-160 MG Bactrim DS 800-160 MG 08/24/2020 12:00:00 AM EST 1.0 {table t} suspended Bactrim DS 800-160 MG eCW1 ( [facility]) Sulfamethoxazole 800 MG / Trimethoprim 1 60 MG Oral Tablet [Bactrim] Bactrim DS 800-160 MG Bactrim DS 800-160 MG 08/24/2020 12:00:00 AM EST 1.0 {table t} active Bactrim DS 800-160 MG eCW1 ( [facility]) Sulfamethoxazole 800 MG / Trimethoprim 1 60 MG Oral Tablet [Bactrim] Bactrim DS 800-160 MG Bactrim DS 800-160 MG 08/24/2020 12:00:00 AM EST 1.0 {table t} suspended Bactrim DS 800-160 MG eCW1 ( [facility]) Sulfamethoxazole 800 MG / Trimethoprim 1 60 MG Oral Tablet [Bactrim] Bactrim DS 800-160 MG Bactrim DS 800-160 MG 08/24/2020 12:00:00 AM EST 1.0 {table t} suspended Bactrim DS 800-160 MG eCW1 ( [facility]) Oxybutynin chloride 5 MG Oral Tablet Oxybutynin Chlori de 5 MG Oxybutynin Chloride 5 MG 08/24/2020 12:00:00 AM EST 1.0 {tablet} suspended Oxybutynin Chloride 5 MG eCW1 ([facility]) Sulfamethoxazole 800 MG / Trimethoprim 1 60 MG Oral Tablet [Bactrim] Bactrim DS 800-160 MG Bactrim DS 800-160 MG 08/24/2020 12:00:00 AM EST 1.0 {table t} suspended Bactrim DS 800-160 MG eCW1 ( [facility]) Oxybutynin chloride 5 MG Oral Tablet Oxybutynin Chlori de 5 MG Oxybutynin Chloride 5 MG 08/24/2020 12:00:00 AM EST 1.0 {tablet} active Oxybutynin Chloride 5 MG eCW1 ([facility]) Oxybutynin chloride 5 MG Oral Tablet Oxybutynin Chlori de 5 MG Oxybutynin Chloride 5 MG 08/24/2020 12:00:00 AM EST 1.0 {tablet} active Oxybutynin Chloride 5 MG eCW1 ([facility]) Oxybutynin chloride 5 MG Oral Tablet Oxybutynin Chlori de 5 MG Oxybutynin Chloride 5 MG 08/24/2020 12:00:00 AM EST 1.0 {tablet} suspended Oxybutynin Chloride 5 MG eCW1 ([facility]) Sulfamethoxazole 800 MG / Trimethoprim 1 60 MG Oral Tablet [Bactrim] Bactrim DS 800-160 MG Bactrim DS 800-160 MG 08/24/2020 12:00:00 AM EST 1.0 {table t} suspended Bactrim DS 800-160 MG eCW1 ( [facility]) Oxybutynin chloride 5 MG Oral Tablet Oxybutynin Chlori de 5 MG Oxybutynin Chloride 5 MG 08/24/2020 12:00:00 AM EST 1.0 {tablet} suspended Oxybutynin Chloride 5 MG eCW1 ([facility]) Sulfamethoxazole 800 MG / Trimethoprim 1 60 MG Oral Tablet [Bactrim] Bactrim DS 800-160 MG Bactrim DS 800-160 MG 08/24/2020 12:00:00 AM EST 1.0 {table t} active Bactrim DS 800-160 MG eCW1 ( [facility]) Oxybutynin chloride 5 MG Oral Tablet Oxybutynin Chlori de 5 MG Oxybutynin Chloride 5 MG 08/24/2020 12:00:00 AM EST 1.0 {tablet} suspended Oxybutynin Chloride 5 MG eCW1 ([facility]) Oxybutynin chloride 5 MG Oral Tablet Oxybutynin Chlori de 5 MG Oxybutynin Chloride 5 MG 08/24/2020 12:00:00 AM EST 1.0 {tablet} active Oxybutynin Chloride 5 MG eCW1 ([facility]) Sulfamethoxazole 800 MG / Trimethoprim 1 60 MG Oral Tablet [Bactrim] Bactrim DS 800-160 MG Bactrim DS 800-160 MG 08/24/2020 12:00:00 AM EST 1.0 {table t} suspended Bactrim DS 800-160 MG eCW1 ( [facility]) Sulfamethoxazole 800 MG / Trimethoprim 1 60 MG Oral Tablet [Bactrim] Bactrim DS 800-160 MG Bactrim DS 800-160 MG 08/24/2020 12:00:00 AM EST 1.0 {table t} suspended Bactrim DS 800-160 MG eCW1 ( [facility]) Sulfamethoxazole 800 MG / Trimethoprim 1 60 MG Oral Tablet [Bactrim] Bactrim DS 800-160 MG Bactrim DS 800-160 MG 08/24/2020 12:00:00 AM EST 1.0 {table t} active Bactrim DS 800-160 MG eCW1 ( [facility]) Sulfamethoxazole 800 MG / Trimethoprim 1 60 MG Oral Tablet [Bactrim] Bactrim DS 800-160 MG Bactrim DS 800-160 MG 08/24/2020 12:00:00 AM EST 1.0 {table t} suspended Bactrim DS 800-160 MG eCW1 ( [facility]) Sulfamethoxazole 800 MG / Trimethoprim 1 60 MG Oral Tablet [Bactrim] Bactrim DS 800-160 MG Bactrim DS 800-160 MG 08/24/2020 12:00:00 AM EST 1.0 {table t} suspended Bactrim DS 800-160 MG eCW1 ( [facility]) Sulfamethoxazole 800 MG / Trimethoprim 1 60 MG Oral Tablet [Bactrim] Bactrim DS 800-160 MG Bactrim DS 800-160 MG 08/24/2020 12:00:00 AM EST 1.0 {table t} suspended Bactrim DS 800-160 MG eCW1 ( [facility]) Sulfamethoxazole 800 MG / Trimethoprim 1 60 MG Oral Tablet [Bactrim] Bactrim DS 800-160 MG Bactrim DS 800-160 MG 08/24/2020 12:00:00 AM EST 1.0 {table t} suspended Bactrim DS 800-160 MG eCW1 ( [facility]) Sulfamethoxazole 800 MG / Trimethoprim 1 60 MG Oral Tablet [Bactrim] Bactrim DS 800-160 MG Bactrim DS 800-160 MG 08/24/2020 12:00:00 AM EST 1.0 {table t} suspended Bactrim DS 800-160 MG eCW1 ( [facility]) Oxybutynin chloride 5 MG Oral Tablet Oxybutynin Chlori de 5 MG Oxybutynin Chloride 5 MG 08/24/2020 12:00:00 AM EST 1.0 {tablet} suspended Oxybutynin Chloride 5 MG eCW1 ([facility]) Oxybutynin chloride 5 MG Oral Tablet Oxybutynin Chlori de 5 MG Oxybutynin Chloride 5 MG 08/24/2020 12:00:00 AM EST 1.0 {tablet} active Oxybutynin Chloride 5 MG eCW1 ([facility]) Sulfamethoxazole 800 MG / Trimethoprim 1 60 MG Oral Tablet [Bactrim] Bactrim DS 800-160 MG Bactrim DS 800-160 MG 08/24/2020 12:00:00 AM EST 1.0 {table t} suspended Bactrim DS 800-160 MG eCW1 ( [facility]) Oxybutynin chloride 5 MG Oral Tablet Oxybutynin Chlori de 5 MG Oxybutynin Chloride 5 MG 08/24/2020 12:00:00 AM EST 1.0 {tablet} suspended Oxybutynin Chloride 5 MG eCW1 ([facility]) Oxybutynin chloride 5 MG Oral Tablet Oxybutynin Chlori de 5 MG Oxybutynin Chloride 5 MG 08/24/2020 12:00:00 AM EST 1.0 {tablet} active Oxybutynin Chloride 5 MG eCW1 ([facility]) Oxybutynin chloride 5 MG Oral Tablet Oxybutynin Chlori de 5 MG Oxybutynin Chloride 5 MG 08/24/2020 12:00:00 AM EST 1.0 {tablet} suspended Oxybutynin Chloride 5 MG eCW1 ([facility]) Sulfamethoxazole 800 MG / Trimethoprim 1 60 MG Oral Tablet [Bactrim] Bactrim DS 800-160 MG Bactrim DS 800-160 MG 08/24/2020 12:00:00 AM EST 1.0 {table t} suspended Bactrim DS 800-160 MG eCW1 ( [facility]) Sulfamethoxazole 800 MG / Trimethoprim 1 60 MG Oral Tablet [Bactrim] Bactrim DS 800-160 MG Bactrim DS 800-160 MG 08/24/2020 12:00:00 AM EST 1.0 {table t} suspended Bactrim DS 800-160 MG eCW1 ( [facility]) Sulfamethoxazole 800 MG / Trimethoprim 1 60 MG Oral Tablet [Bactrim] Bactrim DS 800-160 MG Bactrim DS 800-160 MG 08/24/2020 12:00:00 AM EST 1.0 {table t} suspended Bactrim DS 800-160 MG eCW1 ( [facility]) Sulfamethoxazole 800 MG / Trimethoprim 1 60 MG Oral Tablet [Bactrim] Bactrim DS 800-160 MG Bactrim DS 800-160 MG 08/24/2020 12:00:00 AM EST 1.0 {table t} suspended Bactrim DS 800-160 MG eCW1 ( [facility]) Oxybutynin chloride 5 MG Oral Tablet Oxybutynin Chlori de 5 MG Oxybutynin Chloride 5 MG 08/24/2020 12:00:00 AM EST 1.0 {tablet} suspended Oxybutynin Chloride 5 MG eCW1 ([facility]) Levofloxacin 250 MG Oral Tablet Levofloxacin 250 MG 08/01/2020 1 2:00:00 AM EDT 1.0 {tablet} suspended Levofloxa monserrat 250 MG eCW1 ([facility]) Levofloxacin 250 MG Oral Tablet levoFLOXacin 250 MG levoFLOX acin 250 MG 08/01/2020 12:00:00 AM EDT 1.0 {tablet} suspende d levoFLOXacin 250 MG eCW1 ([facility]) Levofloxacin 250 MG Oral Tablet Levofloxacin 250 MG 08/01/2020 1 2:00:00 AM EDT 1.0 {tablet} suspended Levofloxa monserrat 250 MG eCW1 ([facility]) Levofloxacin 250 MG Oral Tablet Levofloxacin 250 MG 08/01/2020 1 2:00:00 AM EDT 1.0 {tablet} suspended Levofloxa monserrat 250 MG eCW1 ([facility]) Levofloxacin 250 MG Oral Tablet levoFLOXacin 250 MG levoFLOX acin 250 MG 08/01/2020 12:00:00 AM EDT 1.0 {tablet} suspende d levoFLOXacin 250 MG eCW1 ([facility]) Levofloxacin 250 MG Oral Tablet Levofloxacin 250 MG 08/01/2020 1 2:00:00 AM EDT 1.0 {tablet} suspended Levofloxa monserrat 250 MG eCW1 ([facility]) Levofloxacin 250 MG Oral Tablet levoFLOXacin 250 MG levoFLOX acin 250 MG 08/01/2020 12:00:00 AM EDT 1.0 {tablet} suspende d levoFLOXacin 250 MG eCW1 ([facility]) Levofloxacin 250 MG Oral Tablet Levofloxacin 250 MG 08/01/2020 1 2:00:00 AM EDT 1.0 {tablet} suspended Levofloxa monserrat 250 MG eCW1 ([facility]) Levofloxacin 250 MG Oral Tablet levoFLOXacin 250 MG levoFLOX acin 250 MG 08/01/2020 12:00:00 AM EDT 1.0 {tablet} suspende d levoFLOXacin 250 MG eCW1 ([facility]) Levofloxacin 250 MG Oral Tablet Levofloxacin 250 MG 08/01/2020 1 2:00:00 AM EDT 1.0 {tablet} suspended Levofloxa monserrat 250 MG eCW1 ([facility]) Levofloxacin 250 MG Oral Tablet levoFLOXacin 250 MG levoFLOX acin 250 MG 08/01/2020 12:00:00 AM EDT 1.0 {tablet} suspende d levoFLOXacin 250 MG eCW1 ([facility]) Levofloxacin 250 MG Oral Tablet Levofloxacin 250 MG 08/01/2020 1 2:00:00 AM EDT 1.0 {tablet} suspended Levofloxa monserrat 250 MG eCW1 ([facility]) Levofloxacin 250 MG Oral Tablet levoFLOXacin 250 MG levoFLOX acin 250 MG 08/01/2020 12:00:00 AM EDT 1.0 {tablet} suspende d levoFLOXacin 250 MG eCW1 ([facility]) Levofloxacin 250 MG Oral Tablet Levofloxacin 250 MG 08/01/2020 1 2:00:00 AM EDT 1.0 {tablet} suspended Levofloxa monserrat 250 MG eCW1 ([facility]) Levofloxacin 250 MG Oral Tablet Levofloxacin 250 MG 08/01/2020 1 2:00:00 AM EDT 1.0 {tablet} suspended Levofloxa monserrat 250 MG eCW1 ([facility]) Levofloxacin 250 MG Oral Tablet Levofloxacin 250 MG 08/01/2020 1 2:00:00 AM EDT 1.0 {tablet} suspended Levofloxa monserrat 250 MG eCW1 ([facility]) Levofloxacin 250 MG Oral Tablet Levofloxacin 250 MG 08/01/2020 1 2:00:00 AM EDT 1.0 {tablet} suspended Levofloxa monserrat 250 MG eCW1 ([facility]) Levofloxacin 250 MG Oral Tablet Levofloxacin 250 MG 08/01/2020 1 2:00:00 AM EDT 1.0 {tablet} suspended Levofloxa monserrat 250 MG eCW1 ([facility]) Levofloxacin 250 MG Oral Tablet Levofloxacin 250 MG 08/01/2020 1 2:00:00 AM EDT 1.0 {tablet} suspended Levofloxa monserrat 250 MG eCW1 ([facility]) Levofloxacin 250 MG Oral Tablet levoFLOXacin 250 MG levoFLOX acin 250 MG 08/01/2020 12:00:00 AM EDT 1.0 {tablet} suspende d levoFLOXacin 250 MG eCW1 ([facility]) Levofloxacin 250 MG Oral Tablet Levofloxacin 250 MG 08/01/2020 1 2:00:00 AM EDT 1.0 {tablet} active Levofloxaci n 250 MG eCW1 ([facility]) Levofloxacin 250 MG Oral Tablet levoFLOXacin 250 MG levoFLOX acin 250 MG 08/01/2020 12:00:00 AM EDT 1.0 {tablet} suspende d levoFLOXacin 250 MG eCW1 ([facility]) Levofloxacin 250 MG Oral Tablet Levofloxacin 250 MG 08/01/2020 1 2:00:00 AM EDT 1.0 {tablet} suspended Levofloxa monserrat 250 MG eCW1 ([facility]) Levofloxacin 250 MG Oral Tablet Levofloxacin 250 MG 08/01/2020 1 2:00:00 AM EDT 1.0 {tablet} suspended Levofloxa monserrat 250 MG eCW1 ([facility]) Levofloxacin 250 MG Oral Tablet levoFLOXacin 250 MG levoFLOX acin 250 MG 08/01/2020 12:00:00 AM EDT 1.0 {tablet} suspende d levoFLOXacin 250 MG eCW1 ([facility]) Levofloxacin 250 MG Oral Tablet levoFLOXacin 250 MG levoFLOX acin 250 MG 08/01/2020 12:00:00 AM EDT 1.0 {tablet} suspende d levoFLOXacin 250 MG eCW1 ([facility]) Levofloxacin 250 MG Oral Tablet Levofloxacin 250 MG 08/01/2020 1 2:00:00 AM EDT 1.0 {tablet} suspended Levofloxa monserrat 250 MG eCW1 ([facility]) Levofloxacin 250 MG Oral Tablet Levofloxacin 250 MG 08/01/2020 1 2:00:00 AM EDT 1.0 {tablet} suspended Levofloxa monserrat 250 MG eCW1 ([facility]) Levofloxacin 250 MG Oral Tablet levoFLOXacin 250 MG levoFLOX acin 250 MG 08/01/2020 12:00:00 AM EDT 1.0 {tablet} suspende d levoFLOXacin 250 MG eCW1 ([facility]) Levofloxacin 250 MG Oral Tablet levoFLOXacin 250 MG levoFLOX acin 250 MG 08/01/2020 12:00:00 AM EDT 1.0 {tablet} suspende d levoFLOXacin 250 MG eCW1 ([facility]) Levofloxacin 250 MG Oral Tablet Levofloxacin 250 MG 08/01/2020 1 2:00:00 AM EDT 1.0 {tablet} suspended Levofloxa monserrat 250 MG eCW1 ([facility]) Levofloxacin 250 MG Oral Tablet Levofloxacin 250 MG 08/01/2020 1 2:00:00 AM EDT 1.0 {tablet} suspended Levofloxa monserart 250 MG eCW1 ([facility]) Levofloxacin 250 MG Oral Tablet levoFLOXacin 250 MG levoFLOX acin 250 MG 08/01/2020 12:00:00 AM EDT 1.0 {tablet} suspende d levoFLOXacin 250 MG eCW1 ([facility]) Levofloxacin 250 MG Oral Tablet Levofloxacin 250 MG 08/01/2020 1 2:00:00 AM EDT 1.0 {tablet} suspended Levofloxa monserrat 250 MG eCW1 ([facility]) Levofloxacin 250 MG Oral Tablet Levofloxacin 250 MG 08/01/2020 1 2:00:00 AM EDT 1.0 {tablet} suspended Levofloxa monserrat 250 MG eCW1 ([facility]) Levofloxacin 250 MG Oral Tablet Levofloxacin 250 MG 08/01/2020 1 2:00:00 AM EDT 1.0 {tablet} suspended Levofloxa monserrat 250 MG eCW1 ([facility]) Levofloxacin 250 MG Oral Tablet levoFLOXacin 250 MG levoFLOX acin 250 MG 08/01/2020 12:00:00 AM EDT 1.0 {tablet} suspende d levoFLOXacin 250 MG eCW1 ([facility]) Levofloxacin 250 MG Oral Tablet Levofloxacin 250 MG 08/01/2020 1 2:00:00 AM EDT 1.0 {tablet} suspended Levofloxa monserrat 250 MG eCW1 ([facility]) Levofloxacin 250 MG Oral Tablet levoFLOXacin 250 MG levoFLOX acin 250 MG 08/01/2020 12:00:00 AM EDT 1.0 {tablet} suspende d levoFLOXacin 250 MG eCW1 ([facility]) Levofloxacin 250 MG Oral Tablet levoFLOXacin 250 MG levoFLOX acin 250 MG 08/01/2020 12:00:00 AM EDT 1.0 {tablet} suspende d levoFLOXacin 250 MG eCW1 ([facility]) Sulfamethoxazole 800 MG / Trimethoprim 1 60 MG Oral Tablet [Bactrim] Bactrim DS 800-160 MG Bactrim DS 800-160 MG 07/28/2020 12:00:00 AM EDT 1.0 {table t} active Bactrim DS 800-160 MG eCW1 ( [facility]) cefdinir 300 MG Oral Capsule Cefdinir 300 MG Cefdinir 300 MG 07/13/2020 12:00:00 AM EDT suspended Cefdinir 300 MG eCW1 ([facility]) cefdinir 300 MG Oral Capsule Cefdinir 300 MG Cefdinir 300 MG 07/13/2020 12:00:00 AM EDT suspended Cefdinir 300 MG eCW1 ([facility]) cefdinir 300 MG Oral Capsule Cefdinir 300 MG Cefdinir 300 MG 07/13/2020 12:00:00 AM EDT suspended Cefdinir 300 MG eCW1 ([facility]) cefdinir 300 MG Oral Capsule Cefdinir 300 MG Cefdinir 300 MG 07/13/2020 12:00:00 AM EDT active Cefdinir 300 MG eCW1 ([facility]) cefdinir 300 MG Oral Capsule Cefdinir 300 MG Cefdinir 300 MG 07/13/2020 12:00:00 AM EDT suspended Cefdinir 300 MG eCW1 ([facility]) cefdinir 300 MG Oral Capsule Cefdinir 300 MG Cefdinir 300 MG 07/13/2020 12:00:00 AM EDT suspended Cefdinir 300 MG eCW1 ([facility]) cefdinir 300 MG Oral Capsule Cefdinir 300 MG Cefdinir 300 MG 07/13/2020 12:00:00 AM EDT suspended Cefdinir 300 MG eCW1 ([facility]) cefdinir 300 MG Oral Capsule Cefdinir 300 MG Cefdinir 300 MG 07/13/2020 12:00:00 AM EDT suspended Cefdinir 300 MG eCW1 ([facility]) cefdinir 300 MG Oral Capsule Cefdinir 300 MG Cefdinir 300 MG 07/13/2020 12:00:00 AM EDT active Cefdinir 300 MG eCW1 ([facility]) cefdinir 300 MG Oral Capsule Cefdinir 300 MG Cefdinir 300 MG 07/13/2020 12:00:00 AM EDT suspended Cefdinir 300 MG eCW1 ([facility]) cefdinir 300 MG Oral Capsule Cefdinir 300 MG Cefdinir 300 MG 07/13/2020 12:00:00 AM EDT suspended Cefdinir 300 MG eCW1 ([facility]) cefdinir 300 MG Oral Capsule Cefdinir 300 MG Cefdinir 300 MG 07/13/2020 12:00:00 AM EDT suspended Cefdinir 300 MG eCW1 ([facility]) cefdinir 300 MG Oral Capsule Cefdinir 300 MG Cefdinir 300 MG 07/13/2020 12:00:00 AM EDT suspended Cefdinir 300 MG eCW1 ([facility]) cefdinir 300 MG Oral Capsule Cefdinir 300 MG Cefdinir 300 MG 07/13/2020 12:00:00 AM EDT suspended Cefdinir 300 MG eCW1 ([facility]) cefdinir 300 MG Oral Capsule Cefdinir 300 MG Cefdinir 300 MG 07/13/2020 12:00:00 AM EDT suspended Cefdinir 300 MG eCW1 ([facility]) cefdinir 300 MG Oral Capsule Cefdinir 300 MG Cefdinir 300 MG 07/13/2020 12:00:00 AM EDT suspended Cefdinir 300 MG eCW1 ([facility]) cefdinir 300 MG Oral Capsule Cefdinir 300 MG Cefdinir 300 MG 07/13/2020 12:00:00 AM EDT suspended Cefdinir 300 MG eCW1 ([facility]) cefdinir 300 MG Oral Capsule Cefdinir 300 MG Cefdinir 300 MG 07/13/2020 12:00:00 AM EDT suspended Cefdinir 300 MG eCW1 ([facility]) cefdinir 300 MG Oral Capsule Cefdinir 300 MG Cefdinir 300 MG 07/13/2020 12:00:00 AM EDT suspended Cefdinir 300 MG eCW1 ([facility]) cefdinir 300 MG Oral Capsule Cefdinir 300 MG Cefdinir 300 MG 07/13/2020 12:00:00 AM EDT suspended Cefdinir 300 MG eCW1 ([facility]) cefdinir 300 MG Oral Capsule Cefdinir 300 MG Cefdinir 300 MG 07/13/2020 12:00:00 AM EDT suspended Cefdinir 300 MG eCW1 ([facility]) cefdinir 300 MG Oral Capsule Cefdinir 300 MG Cefdinir 300 MG 07/13/2020 12:00:00 AM EDT active Cefdinir 300 MG eCW1 ([facility]) cefdinir 300 MG Oral Capsule Cefdinir 300 MG Cefdinir 300 MG 07/13/2020 12:00:00 AM EDT suspended Cefdinir 300 MG eCW1 ([facility]) cefdinir 300 MG Oral Capsule Cefdinir 300 MG Cefdinir 300 MG 07/13/2020 12:00:00 AM EDT suspended Cefdinir 300 MG eCW1 ([facility]) cefdinir 300 MG Oral Capsule Cefdinir 300 MG Cefdinir 300 MG 07/13/2020 12:00:00 AM EDT active Cefdinir 300 MG eCW1 ([facility]) cefdinir 300 MG Oral Capsule Cefdinir 300 MG Cefdinir 300 MG 07/13/2020 12:00:00 AM EDT suspended Cefdinir 300 MG eCW1 ([facility]) cefdinir 300 MG Oral Capsule Cefdinir 300 MG Cefdinir 300 MG 07/13/2020 12:00:00 AM EDT suspended Cefdinir 300 MG eCW1 ([facility]) cefdinir 300 MG Oral Capsule Cefdinir 300 MG Cefdinir 300 MG 07/13/2020 12:00:00 AM EDT suspended Cefdinir 300 MG eCW1 ([facility]) cefdinir 300 MG Oral Capsule Cefdinir 300 MG Cefdinir 300 MG 07/13/2020 12:00:00 AM EDT suspended Cefdinir 300 MG eCW1 ([facility]) cefdinir 300 MG Oral Capsule Cefdinir 300 MG Cefdinir 300 MG 07/13/2020 12:00:00 AM EDT suspended Cefdinir 300 MG eCW1 ([facility]) cefdinir 300 MG Oral Capsule Cefdinir 300 MG Cefdinir 300 MG 07/13/2020 12:00:00 AM EDT suspended Cefdinir 300 MG eCW1 ([facility]) cefdinir 300 MG Oral Capsule Cefdinir 300 MG Cefdinir 300 MG 07/13/2020 12:00:00 AM EDT suspended Cefdinir 300 MG eCW1 ([facility]) cefdinir 300 MG Oral Capsule Cefdinir 300 MG Cefdinir 300 MG 07/13/2020 12:00:00 AM EDT suspended Cefdinir 300 MG eCW1 ([facility]) cefdinir 300 MG Oral Capsule Cefdinir 300 MG Cefdinir 300 MG 07/13/2020 12:00:00 AM EDT suspended Cefdinir 300 MG eCW1 ([facility]) cefdinir 300 MG Oral Capsule Cefdinir 300 MG Cefdinir 300 MG 07/13/2020 12:00:00 AM EDT suspended Cefdinir 300 MG eCW1 ([facility]) cefdinir 300 MG Oral Capsule Cefdinir 300 MG Cefdinir 300 MG 07/13/2020 12:00:00 AM EDT suspended Cefdinir 300 MG eCW1 ([facility]) cefdinir 300 MG Oral Capsule Cefdinir 300 MG Cefdinir 300 MG 07/13/2020 12:00:00 AM EDT suspended Cefdinir 300 MG eCW1 ([facility]) cefdinir 300 MG Oral Capsule Cefdinir 300 MG Cefdinir 300 MG 07/13/2020 12:00:00 AM EDT suspended Cefdinir 300 MG eCW1 ([facility]) cefdinir 300 MG Oral Capsule Cefdinir 300 MG Cefdinir 300 MG 07/13/2020 12:00:00 AM EDT suspended Cefdinir 300 MG eCW1 ([facility]) cefdinir 300 MG Oral Capsule Cefdinir 300 MG Cefdinir 300 MG 07/13/2020 12:00:00 AM EDT suspended Cefdinir 300 MG eCW1 ([facility]) cefdinir 300 MG Oral Capsule Cefdinir 300 MG Cefdinir 300 MG 07/13/2020 12:00:00 AM EDT active Cefdinir 300 MG eCW1 ([facility]) cefdinir 300 MG Oral Capsule Cefdinir 300 MG Cefdinir 300 MG 07/13/2020 12:00:00 AM EDT suspended Cefdinir 300 MG eCW1 ([facility]) cefdinir 300 MG Oral Capsule Cefdinir 300 MG Cefdinir 300 MG 07/13/2020 12:00:00 AM EDT suspended Cefdinir 300 MG eCW1 ([facility]) cefdinir 300 MG Oral Capsule Cefdinir 300 MG Cefdinir 300 MG 07/13/2020 12:00:00 AM EDT suspended Cefdinir 300 MG eCW1 ([facility]) carvedilol 6.25 MG Oral Tablet CARVEDILOL 04/18/2020 12:00:00 AM EDT tablet 180 TAKE ONE TABLET BY MOUTH TWICE A DAY TAKE ONE TABLET BY MOUT H TWICE A DAY SOLD: 07/28/2020 [facility] atorvastatin 10 MG Oral Tablet ATORVASTATIN CALCIUM 09/29/2019 1 2:00:00 AM EST tablet 90 TAKE ONE TABLET BY MOUTH EVERY D AY TAKE ONE TABLET BY MOUTH EVERY DAY SOLD: 06/02/2020 [facility] Insurance Providers Payer name Policy type / Coverage type Policy ID Covered democrat ID Covered democrat's relationship to reinoso Policy Reinoso Plan Information [place]/307 [id number] SP [id number] [place]ICARE - [place] [id number] S [id number] [place]/307 [id number] SP [id number] MEDICARE [id number] SP [id number] A MEDICARE A [id number] Self [id number] [place]/307 [id number] SP [id number] [place]/307 [id number] SP [id number] [facility] H [id number] Self [id number] [place] [employer] [place] [id number] S [id number] MEDICARE [id number] SP [id number] A MEDICARE [id number] SP [id number] MEDICARE [id number] SP [id number] [employer] [id number] SP [id number] [employer] OPTIONS [id number] SP [id number] [employer]IONS [id number] SP [id number] [employer] [id number] SP [id number] [employer] [id number] SP [id number] [employer] [id number] SP [id number] [employer] [id number] SP [id number] [employer] [id number] SP [id number] [employer] [id number] SP [id number] AARP U [id number] Self [id number] [employer] OPTIONS [id number] SP [id number] [facility] Part B [id number] Self [id number] Medicare [facility] Medicare Primary [id number] Self [id number] ANSI-Medicare Part B [id number] ANSI-Commercial [id number]-6q2x-gr7y-[id number] 0150lg50-2d0g-4v9u-we2x-[id number] ANSI-Medicare Part B [id number] ANSI-Commercial 6z9x08c6-l247-83xk-3829-89ei56e0wy43 0w6j73i0-g601-35se-4882-69uw85f3sy99 ANSI-Medicare Part B [id number] ANSI-Medicare Part B [id number] ANSI-Commercial yf6t8iyt-152i-3s72-55m8-vqko115qqviq hx1p7xsi-760v-0n13-76r7-rzkm132fmznv ANSI-Commercial a3505u63-38v4-0219-2oz6-5hw4tu5106pg l7589r34-90h7-8905-8jr7-6yy8ve1500aq ANSI-Medicare Part B [id number]-5p2v-[id number] ANSI-Medicare Part B [id number]-2s20-[id number] ANSI-Commercial 5om84u16-353s-0nc8-y497-ko3ns14600tm 3nr93j37-478j-8xm0-z126-fn7ye61912zq ANSI-Commercial 1axd1811-6g32-0b43-3915-t2z96j4q3eu7 5jox4951-6o59-3s52-1032-j3i33o1h9jl7 ANSI-Commercial 62mj1z5t-a772-500f-gq5b-g95eq24k5090 64if7e4y-q608-643m-fl5z-o91jh39w7644 ANSI-Medicare Part B [id number] rkv2k64z-a95x-59sv-5739-n8y60lx29vhz ANSI-Commercial e10h4v7k-u337-23j2-8f74-dejtiv3zr61u f12z1j5t-x573-42f1-9z40-tibzah7av68x ANSI-Medicare Part B [id number]-[id number] 3vkh3inm-j2y3-05b0-x87l-1w01962co25e ANSI-Medicare Part B [id number]-dd67-[id number] j2zp4w4s-t981-6b7y-hp89-a773m923g2m8 ANSI-Medicare Part B [id number]-ie10-x14mm19r7h53 t2b0nj39-39c2-88x2-xs50-k16br89c6j98 ANSI-Commercial 6tsq4h45-266m-1rq1-2010-tre216sz5b49 3eze0d05-159u-4qr4-7566-ghu349lo6p27 ANSI-Commercial j377m72p-3z6u-624m-5wl3-0s46pp6y4d3f c558a71o-7t1b-489i-1pu3-6x20dp3w4o0s ANSI-Commercial y353970t-46q1-2m44-9102-53y0x23f17mb m676366k-20b7-9w49-0550-56d2u70i21kb ANSI-Commercial 65qx605m-4e81-4gll-8m4e-5623impa3n85 29wk199x-5i37-7xua-9m2f-7627bjsa1v41 ANSI-Medicare Part B [id number]-7i91-2061-ej2g711docvk 672ub19w-n0sl-3u60-7809-wr2n676isjzq ANSI-Medicare Part B [id number]j60 0ci7ny81-e9a2-4095-42l0-0c4940en9e66 ANSI-Medicare Part B [id number]-21nf-0968-hf3z-7o08dqar1082 0316a92x-91jo-7199-et0c-0q23hyes1598 ANSI-Commercial l2n3o342-v39a-08ii-042e-24qe85330z64 l9p9g102-y18t-77da-877m-50yi64916m72 ANSI-Medicare Part B [id number]-cub3-62372e7v7964 51867wt0-87g0-2r39-pmk9-59249i6h5762 ANSI-Commercial 82v21490-qvp0-19rh-l3t5-91o98po00fu2 51c69947-cst5-51fu-l3s3-61f69as20wq0 ANSI-Medicare Part B [id number]-304x-swvr-y3y996d04q1y 3w8750h6-136o-563p-lwaa-j3q298f17g3u ANSI-Medicare Part B [id number]-f96r-[id number] gxw50977-8787-55m7-y81f-9r098060513h ANSI-Commercial 77266k88-18ov-1a1y-px7o-503u17rqu3u3 05558f12-07as-8h1j-yq1x-989g07pvq4m2 ANSI-Commercial 44j12og8-93s1-0d44-p66z-4i9pr3803dot 16o25rb9-76f6-0w45-j35l-5s9ih2270pzx ANSI-Commercial 86e782ow-95x4-92hy-4479-w04xw7wv58g1 44g800zs-56f6-38al-5731-h55pt6mn17j0 ANSI-Medicare Part B [id number]-24s2-z8o9-lf0d406156s3 56668y69-16gp-67w9-t0q7-he4y319252u3 ANSI-Commercial p3654xck-1517-9zx2-7d9w-29ya0c397912 h5060ckh-6353-7vf0-0j9p-03uc6v856624 ANSI-Medicare Part B 68e383mh-6389-6820-9r1t-1i56439729z2 96r254ab-7933-7101-5r7x-1y21897844w4 ANSI-Commercial 4733820j-97qr-31vw-nrf5-6qa34ttj51s2 3578930d-07zr-75ox-thj4-0jt29abd64k2 ANSI-Commercial 0f419h09-2698-09f1-15r5-323k9x9uexq4 8h729h14-0234-08i8-63c5-628v5o7figg4 ANSI-Medicare Part B [id number] b716q2mi-sq33-6a17-10x1-09w67gh5477h ANSI-Medicare Part B [id number]-u0b0-60s0-fsst-ok66s55fuh5y e7qec9zw-q2q6-20z4-vnjd-ov36s56kmg8h ANSI-Medicare Part B [id number]-74dh-7101-8252g2397r22 1141502f-2g1l-79hu-6232-9682v2662w91 ANSI-Medicare Part B 6xq5v8e3-0t4x-014c-a351-10az7b1uf832 3my4x9k6-0n5b-896b-c044-40tu4a0cp040 ANSI-Commercial d0qr9g03-g821-6v27-a01x-l7u2p8j0x887 i8as4z78-p863-3s66-m56l-z7d5t5r6s504 ANSI-Commercial t6p51sf5-w56f-9688-i25j-93b77l6892y1 m2b49ja1-c34f-3428-s64u-49x32r0381c4 ANSI-Medicare Part B [id number]-0ct6-z3q4-ue235rzo45m1 nc760853-502w-6ys5-r0y5-xf906zmn16d4 ANSI-Medicare Part B [id number]-387n-3n759u10jl2p 34254380-0aj9-68ad-468q-7t391y41ga3d ANSI-Commercial 693ok19a-8608-4be9-v91p-6ak9a3dp175c 024zy80d-6037-1ij3-w12j-1ge7r5ga071s ANSI-Commercial ct357250-3713-216f-567d-0i2579j37511 eh258424-6197-648l-995g-1o1822q91466 ANSI-Commercial 8qo0sz69-7276-1857-4z73-k86366qvvq72 3mr3ct88-2090-5760-0l19-r56248gfox82 ANSI-Medicare Part B 5q95wffs-6td5-5385-72h1-6r05jp27o6b8 1z87icnx-1dj8-9312-58s6-0u89xm88e9k3 ANSI-Commercial 90mzem86-c759-4661-4442-7l2i1a29i4t9 91pihu62-j357-3142-1134-5q2v8n56i8g2 ANSI-Medicare Part B 5xiqyh3e-4856-9s46-6h22-f6636g0fwt05 6qhdvy5h-8135-7c26-9e96-k2239b2hdl05 [facility] Part B [id number] Self [id number] Medicare [facility] Medicare Primary [id number] Self [id number] ANSI-Commercial bmf9g949-rk77-9529-gf8v-aa4217460g18 iqu7w115-os35-0896-iv7i-di8648118j78 ANSI-Medicare Part B [id number]-wwr5-3z93-pt7t-52p491ty214i 0hlz302k-ajd4-0e08-kv0q-58d624ud168s ANSI-Commercial 933d640k-305q-148b-558i-1k313457ut17 362q472t-622o-094p-300j-6l348950ep10 ANSI-Medicare Part B [id number]-472e-5284-724m693p4ci6 7ly29w44-0lub-461y-0987-167o959c9ag0 ANSI-Medicare Part B [id number]-[id number] e0gk14tz-u245-7995-5542-68o700243843 ANSI-Commercial xwtm1xqf-90p5-381i-1h56-51zt8d00is20 pgab1hmj-14x2-155f-6f20-93eu3v31mq41 ANSI-Medicare Part B [id number]-1x9w-6n78-l2765qq202k7 99704986-98sk-8a6i-8t44-o4945pz380l5 ANSI-Commercial 063xks85-t428-1n60-1t4w-08y2951ew3o6 839edd68-o335-5e02-5y8e-33o2597xb5d0 ANSI-Medicare Part B [id number]-jt0x-6g01q4hp418a hd25ab3c-4s23-9w12-po1b-8x92s0pn619l ANSI-Commercial jr20tdr7-1d0m-67v9-97s0-q9w34ckx4b2t jg18vzv8-3v2p-09g8-04m8-p6a31gmv3m6r ANSI-Commercial 2z08izy0-5d58-73h4-8211-3t0r6tl65q36 6y40qsl0-4j66-96g1-4361-5j8k5dr59b15 ANSI-Medicare Part B [id number]e7d 678k0j58-76d1-0648-84f5-12dw4v9e5k6i ANSI-Medicare Part B 5nftg1e1-b368-244m-v011-s0451c7021t5 9ydkl0g5-j930-834e-m439-t9328b1421n8 ANSI-Commercial vp6w4832-48dl-7ep9-2342-1av7mv8yo010 jj2d0381-75yc-2qt7-7500-5rp2im3wm796 ANSI-Medicare Part B [id number]-7tfe68761777 71k82l3r-6pm6-14r5-972y-2fio59527749 ANSI-Commercial 4n2456q7-477u-1c3m-l2hb-b217q168d549 7g2133f6-150e-4u5h-x0jq-a883i249h031 ANSI-Medicare Part B 9t691k65-l6wr-373l-a038-0wp471799g6q 8k524u92-x8ng-175n-b510-5td351061j0a ANSI-Commercial 9ak53c9h-1170-47ia-k0cx-esz901370b5h 7of90g3r-6857-31ed-t8wb-zsp526884m1i ANSI-Commercial j8949363-314r-3507-31h9-7rw26n785hvi y4809322-540r-1526-70f9-8nd97z857ppt ANSI-Medicare Part B jez71446-87j0-761r-j651-d22391m3899q eoq33086-66d4-005r-d459-g18591m4937r ANSI-Medicare Part B 650962c9-86m3-866t-h9e4-sb7748obc2n7 686149u2-02n0-146g-j3x7-qh1752nlv3o3 ANSI-Medicare Part B 5zw1140x-642e-06w1-4r2a-pun0ru270829 3gx7887d-107g-77t5-8k0u-apj4bw820493 ANSI-Commercial 2779kp44-t55f-0wm5-2lm5-2k2hyg837s53 3888ph10-x83x-2sk9-2xl6-2o5ehg168k75 ANSI-Commercial 3j3348k2-382e-9691-1obs-8656g699488g 9n0267a8-130a-2596-0ypm-0516w124157l ANSI-Commercial l24ud926-2br3-71a2-r22h-ib4c1f268d6c a55xj025-1zi6-43a2-j57s-qe8v1z969a6w ANSI-Medicare Part B 5356x9c4-4909-192r-0115-sp5w8x1412n0 7966n0x1-2374-706a-2180-fv1s3e9598f7 ANSI-Medicare Part B ra365228-9577-7212-3937-73m3530o4c8j ow743616-6958-0595-4964-48c4492r6a9p ANSI-Commercial urlb460m-79d4-485p-079a-3y9gr2jix0q2 taws349y-54c2-680x-939t-7b2fo0rli8l7 ANSI-Commercial o3367hx2-8v5a-08al-h86d-37w848022jm3 c4826wf7-8f3o-90tp-l91e-85l942815ir7 ANSI-Medicare Part B 4099361b-59eu-6thd-3i47-3r68bla9soy1 1355424n-74wa-4drj-1s64-4o79lsy8ulv3 ANSI-Commercial occ64x90-3573-7f08-3g44-an55r44241e7 iyz05f39-7885-1l48-1l81-vj35n09860f4 ANSI-Medicare Part B 030tdmnx-3909-6r704j78-bi11-01b848d602t5 074ssfhc-6786-5q180q26-hq61-88q426w380a0 ANSI-Commercial 8nuvw550-j981-3irn-9x14-q6777lw9v232 0zbpj659-d589-4vsi-5v40-w3743hs1w266 ANSI-Medicare Part B 8328eh1e-0356-4y76-8i33-y780760f0265 0623do1x-6854-4d69-4a40-i263329e2707 ANSI-Commercial 30999925-y516-215t-fhn7-5d8m3lv24hs9 82090952-e721-176o-tlk5-9g9f2eh63do6 ANSI-Medicare Part B 5841l59u-1323-315f-6443-trzm1b5q8d93 7080h55k-7617-768j-1124-kvsb9m7e3l46 ANSI-Medicare Part B 2iot891p-4a04-4l17-h79f-8b92yl36l831 6hgy126w-6v52-3u29-t34i-1p66ok37x520 ANSI-Commercial 66547ck2-9uo9-4143-h23c-l57547287442 88256vs0-3uj0-6330-w98t-z04992205053 ANSI-Commercial 33akhh21-960a-91x3-512m-32chw9968y98 08vngt28-775w-90j7-265d-27lvt9942m51 ANSI-Medicare Part B d0140584-v0w3-0870-eq15-61o80p5z8u79 q6030508-b6x1-8774-qb28-38a24b9v7l52 ANSI-Commercial 2d0d8n3y-3o01-2105-9ij2-8r90ah1m085o 2h8t3s8b-2r29-8953-9ix4-4v03ui4n795q ANSI-Commercial 0j20888b-ej01-1778-m24e-1707189598tp 6v82257p-kg57-4939-w88c-1404396546od ANSI-Medicare Part B 04hbiw78-8te3-74v7-670o-7s3424j9281w 68dlfw53-3qz1-03v9-774j-0m0914f8622m ANSI-Medicare Part B 16nac4q8-8684-41vu-q968-4k43isa9687p 04pct3n5-3803-70sa-h433-0q23kyk3919w ANSI-Commercial 1n520715-frz6-7128-rilx-94xn24181364 1o586302-dso8-1627-sltf-61wm45595386 ANSI-Medicare Part B 2184vn75-8ah9-67u5-1hlc-1nz3k70643f7 5412cp69-4ca5-57b4-2rvx-1kh4c95927y2 ANSI-Commercial 5212b3o5-z265-700p-r333-92thu7c0v5ux 2098q8d6-b270-814a-j946-21ztm1e8k1xs ANSI-Medicare Part B 35h3u50o-b9w5-693s-x414-7vm4w0m4g1w6 29u5f79f-f9w4-925e-q354-0ml6g8o9n0w8 ANSI-Commercial 3l10268f-72z5-2j81-s1s3-2e6w5u2g7168 0e23821p-79p3-6b09-i2w9-7f7e6w3j8291 ANSI-Medicare Part B 634r270u-0dv4-6dd8-346i-84y2l21q652z 990r025u-5ww6-2oo2-550q-59a7m29c016z ANSI-Commercial i453222j-80w1-8k8z-bp76-dktc60421n6f t174322i-17e7-7d0z-bg50-koik74633f0v ANSI-Medicare Part B oul71296-wh1d-88y6-03r4-2eo6yg587403 jwx98755-yi6r-11u3-87q5-3ek9fb685299 ANSI-Commercial 3yda8c8n-gks7-6443-i99l-8qg211qe6t36 4uci2q2i-whd7-4822-f48z-9jf613ks4f88 ANSI-Medicare Part B 9p3r6378-92t5-27k4-72h4-2fz532g56436 5b9b9995-91l5-25o7-18t6-8yp672m74952 ANSI-Commercial 9213w188-z637-1tf0-isd4-63947090w165 9233o228-p416-5mg6-bsq8-93639276u991 ANSI-Medicare Part B 201h2ok5-m5xs-400f-4pp9-4og6770x66xf 433y0kp0-c2jy-568j-1ff5-2ns7423i19jp ANSI-Medicare Part B 58ykgtb1-j377-22r4-g656-b52d7099545l 23mclnq4-n807-64x4-j004-o94w4087582o ANSI-Commercial 2548tu04-coe0-6625-lc40-7p4336ve5g69 0421ms37-eor6-7290-eu43-3v8718fn1c26 ANSI-Commercial bn2b9cgd-a733-5baf-nl66-ty055k91rf94 fq6l6ogb-r992-6yea-gg80-yl666n70mp20 MEDICARE [id number] SP [id number] A MEDICARE C [id number] S [id number] A Medicare Natl Gov't Servi Medicare Primary .[id number] Self [facility] Options [facility] Part [id number] .[id number] Self MEDICARE [id number] SP [id number] T AARP O [id number] S [id number] MEDICARE [id number] SP [id number] A [employer]/[place] Commercial [id number] Self Medicare Natl Gov't Servi Medicare Primary .[id number] Self [place] [employer] B [id number] S VYE [id number] BCBS [place] PPO 302/307 [id number] SP [id number] Medicare [facility] Part B [id number] Self BS [place] Commercial [id number] Self MEDICARE [id number] SP [id number] T MEDICARE S [id number] S [id number] T [facility] [id number] SP [id number] MEDICARE [id number] SP [id number] [facility] OPTIONS [id number] SP [id number] [facility] OPTIONS [id number] S [id number] [facility] MEDICARE DIVISION [id number] S [id number] MEDICARE - [place] [id number] S [id number] MEDICARE C [id number] S [id number] AARP O [id number] S [id number] PART B C [id number] S [id number] [place] JE PART B C [id number] S [id number] ANSI-Commercial 68850988-3i01-24r5-2293-x7289695cg97 27420673-4x02-43x1-9545-q1687476fz60 ANSI-Medicare Part B k0986y52-9518-529q-x3g3-50p1996tn9p2 c1855l92-9469-232m-t5h5-55d9193ml5w3 ANSI-Commercial c64a02l0-6f93-3nkh-12c1-497z8608jfw0 k84c95p2-9a76-0thv-71w1-278m8382abr9 ANSI-Medicare Part B ok37p8s4-2521-4p99-1681-pcu930o1v477 eo02h4u4-0773-6s58-1410-ftv618f9f264 [facility]arp [facility] Part B [id number].[id number] Self [id number] [place] Medicare Primary [id number] MRN.[id number] Self [id number] ANSI-Medicare Part B 80bhs5q5-2064-87nm-hs67-2k719t03860q 77xhq5g0-2971-90sh-ls79-7v368d21302z ANSI-Medicare Part B 41x55x1v-796d-0005-51b5-52c9p90da323 39z14v3n-523e-7626-44v1-65c3k37jv888 ANSI-Commercial 2731d9r9-5887-8u23-94t1-665m7i8034x6 0780d3s3-6598-1t11-13j6-979v3q6355s4 ANSI-Commercial aabq9620-eu2o-3hvh-j69q-31281noug74d [id number] ANSI-Commercial [id number] ANSI-Medicare Part B [id number] ANSI-Commercial [id number] ANSI-Medicare Part B [id number] Problems, Conditions, and Diagnoses Code Display Name Description Problem Type Effective Dates Data Source(s) D64.9 Anemia, unspecified Anemia, unspecified Diagnosis 0 05/25/2021 10:44:00 AM EDT [facility] M79.661 Pain in right lower leg PAIN IN RIGHT LOWER LEG Diagno sis 03/21/2021 01:48:00 PM EDT [facility] L89.622 Pressure ulcer of heel Pressure ulcer of left heel, st age 1 Problem 05/31/2021 12:00:00 AM EDT eCW1 ([facility]) 18671650 Disorder of thyroid gland Disorder of thyroid gland Pr oblem 05/18/2021 12:00:00 AM EDT MEDLIZ ([facility]) 49979499 Essential hypertension Essential hypertension Problem 05/12/2021 12:00:00 AM EDT MEDENT ([facility]) 97413558 Pulmonary embolism Pulmonary embolism Problem 12:00:00 AM EDT MEDENT ([facility]) 39476372 Hyperlipidemia Hyperlipidemia Problem 05/12/2021 12:00: 00 AM EDT MEDENT ([facility]) [id number] Deep venous thrombosis of lower extremit y Deep venous thrombosis of lower extremity Problem 05/12/2021 12:00:00 AM EDT MEDENT ([facility]) N39.498 [id number] Other urinary incontinence Problem 12:00:00 AM EDT eCW1 ([facility]) R39.15 [id number] Urgency of urination Problem 04/14/2021 12:0 0:00 AM EDT eCW1 ([facility]) 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 [facility] 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 mellitus Problem 04/11/2021 12:00:00 AM EDT MEDENT ([facility] B35.1 Onychomycosis Onychomycosis Problem 04/11/2021 12:00:00 AM EDT MEDENT [facility] E11.621 Type 2 diabetes mellitus with ulcer Type 2 diabe shea mellitus with ulcer Problem 04/11/2021 12:00:00 AM EDT MEDENT ([facility] L89.623 [id number] Pressure ulcer of left heel, stage 3 Prob angelica 04/04/2021 12:00:00 AM EDT eCW1 ([facility]) L89.612 699121308 Pressure ulcer of right heel, stage 2 Pro blem 03/30/2021 12:00:00 AM EDT eCW1 ([facility]) L89.622 [id number] Decubitus ulcer of left heel, stage 2 Pro blem 03/21/2021 12:00:00 AM EDT eCW1 ([facility]) N39.41 Urge incontinence of urine Urge incontinence Problem 02/06/2021 12:00:00 AM EDT eCW1 ([facility]) N39.41 Urge incontinence of urine Urge incontinence of urine Problem 12/22/2020 12:00:00 AM EST eCW1 ([facility]) N39.0 Urinary tract infectious disease Frequent UTI Problem 09/23/2020 12:00:00 AM EST eCW1 ([facility]) Surgeries/Procedures Procedure Description Date Indications Data Source(s) INSJ TEMP NDWELLG BLADDER CATHETER SIMPLE 07/27/2021 1 2:00:00 AM EDT eCW1 ([facility]) DEBRIDEMENT NAIL ANY METHOD 06/12/2021 12:00:00 AM EDT MEDENT [facility] FINE NEEDLE ASPIRATION W/O IMAGING GUIDANCE 05/16/2021 12:00:00 AM EDT eCW1 ([facility]) FINE NEEDLE ASPIRATION W/O IMAGING GUIDANCE 05/09/2021 12:00:00 AM EDT eCW1 ([facility]) FINE NEEDLE ASPIRATION W/O IMAGING GUIDANCE 05/02/2021 12:00:00 AM EDT eCW1 ([facility]) FINE NEEDLE ASPIRATION W/O IMAGING GUIDANCE 04/25/2021 12:00:00 AM EDT eCW1 ([facility]) FINE NEEDLE ASPIRATION W/O IMAGING GUIDANCE 04/18/2021 12:00:00 AM EDT eCW1 ([facility]) FINE NEEDLE ASPIRATION W/O IMAGING GUIDANCE 04/04/2021 12:00:00 AM EDT eCW1 ([facility]) DEBRIDEMENT NAIL ANY METHOD 04/03/2021 12:00:00 AM EDT MEDENT [facility] OFFICE OUTPATIENT VISIT 10 MINUTES 04/03/2021 12:00:00 AM EDT MEDENT [facility] DEBRIDEMENT SUBCUTANEOUS TISSUE 20 SQ CM/< 03/23/2021 12:00:00 AM EDT MEDENT ([facility] INITIAL HOSPITAL CARE/DAY 70 MINUTES 03/23/2021 12:00: 00 AM EDT MEDENT ([facility] Nurse Visit Vision Screen 10/03/2020 12:00:00 AM EST eCW1 ([facility]) uro PVR (Post Voiding Residual) Bladder Scan 12:00:00 AM EST eCW1 ([facility]) Results ID Date Data Source [id number] 05/30/2021 09:03:00 PM EDT [facility] Hematopathology Report See Addendum Camille Navarreteame: ARBEN QUINTEROMRN: [id number] Number: [id number] Date: 05/25/2021 09:30Received Date: 05/26/2021 14:31Physician(s): ESTEBAN TSAI MD VYAS, SHIKHAR G,[facility] [place] To:[facility]) ReceivedA: Bone Marrow, Flow Cytometry; RECEIVED 1 GREEN TOP BM, 2 ASP AND 1 PBSMEARS (1 EXTRA EDTA BM SENT TO MOLECULAR)Clinical HistoryMetastatic rectal cancer, leukocytosis, and anemia.TEST REQUESTED/PERFORMED: Flow cytometry analysis DiagnosisFlow cytometry of bone marrow: Abnormal phenotype of erythroid and myeloidprecursors, suggestive of but not diagnostic of MDS. Cytogenetic and FISHstudies are pending. Evelio Garza M.D.;Resident PathologistElectronically Signed By Kan Marmolejo M.D. Attending Pathologist 05/30/2021 21:03:00The attending pathologist named above attests that he/she has personallyreviewed the relevant preparation(s) for the specimen(s) and rendered thefinal diagnosis. Addendum 06/05/2021 Cytogenetics report [id number] shows a normal karyotype. The result neitherconfirms, nor refutes a myelodysplastic syndrome, as close to half of MDSpatients present with normal karyotype. Addendum Electronically Signed By: Reina Joshi M.D. 06/05/2021 11:13 ProceduresFlow Cytometry Date Ordered:05/26/2021 Status: Signed Out05/30/2021 InterpretationPERIPHERAL BLOOD: CBC performed at [facility] [address] [place] [address] on 05/25/21WBC *11.8 K/uLRBC *3.24 M/uLHgb *9.9 g/dLHct 29.3 %MCV 90.4 fLMCH 30.6 pgMCHC 33.8 g/dLRDW *16.7 %Platelets 190 K/ul A peripheral blood film is reviewed.BONE MARROW ASPIRATE:Differential Count (100 cells):12 % Erythroid Precursors 1 % Nzwrah80 % N. Nvejvzwtiy45 % N. Metamyelocytes and Band Forms37 % Neutrophils 3 % Eosinophils 5 % Lymphocytes 1 % Plasma Cells--------100 % Lymphoid Panel: [id number] [id number] following markers were assayed: CD45 (gate), CD2, CD3, CD4, CD5, CD7,CD8, CD10, CD19, CD20, CD38, CD56, CD57, [place], and Lambda.# events: [id number]: 94%Flow Cytometry Differential (CD45/ SSC)Lymphocyte [place]: 16%CD45 dim [place]: 1%Monocyte [place]: 4%Granulocyte [place]: 71%Nucleated/Erythroid [place]: 2%The lymphocyte gate showsB-cells (CD19): 4%T- cells (CD3): 82%NK-cells (CD3-/CD56+): 11%[place]/Lambda Ratio: 1.2CD4/CD8 Ratio: 0.7Results: (expressed as % of lymphocyte gate)T-cell Markers: CD2 = 91, CD3 = 82, CD3/CD4 = 32, CD3/CD8 = 45, CD5 = 80,CD7 = 90, CD3/57 = 21B-cell markers: [place] = 3, Lambda = 2, CD19 = 4, CD20 = 4, CD19/10 = 0,CD19/CD5 = 0, CD38/CD20 = 3Light chain as % of B-Cells: CD19/[place] = 41, CD19/Lambda = 32CD19/CD5/[place] = 0, CD19/CD5/Lambda = 0CD19/CD10/[place] = 1, CD19/CD10/Lambda = 0NK cell Markers: CD56 = 17, CD57 = 25Other Markers: CD10 = 1, CD38 = 53Results: (expressed as % of CD45 dim gate)T-cell Markers: CD2 = 17, CD3 = 5, CD3/CD4 = 0, CD3/CD8 = 2, CD5 = 8, CD7= 17, CD3/57 = 0B-cell markers: [place] = 0, Lambda = 2, CD19 = 2, CD20 = 0, CD19/10 = 1,CD19/CD5 = 0, CD38/CD20 = 0Light chain as % of B-Cells: CD19/[place] = 8, CD19/Lambda = 1CD19/CD5/[place] = 1, CD19/CD5/Lambda = 1CD19/CD10/[place] = 5, CD19/CD10/Lambda = 5NK cell Markers: CD56 = 8, CD57 = 1Other Markers: CD10 = 11, CD38 = 92MDS Panel of [facility] MDS 21 2145 [id number] following markers were assayed: CD45 (gate), CD7, CD10, CD11b, CD13,CD14, CD16, CD33, CD34, CD56, CD64, CD71, CD117, and glycophorin A.# events: [id number] NOTE: Routinely a minimum of 500,000 events are collectedin each panel tube. Due to sample cellularity and/or processing thisnumber was not achievable for this sample.Viability: 92%Flow Cytometry Differential (CD45/SSC):Lymphocyte [place]: 12%CD34/CD117 Blast [place]: 0.9%Monocyte [place]: 4%Granu locyte [place]: 64%NRBC [place]: 3%MDS PanelAntibody Population Patient NormalOrthogonal LightScatter Neutrophils High CqigIO25 Granulocytes Moderate RstzcbytQD75 Granulocytes Present BvobalkBK22 Granulocytes Absent RpcqvaWO03/CD14 Monocytes Absent ZibghqVS55/CD117 Blasts Not Increased Not IncreasedCD7 CD34+ Blasts Absent FvxcpcOX38 Maturing Granulocytes Present CeewqxiCY33 Maturing Granulocytes Variable ZxigdycXC94/CD13 Pattern Myeloid Cells Abnormal Pattern Normal WwbmlpvAC23/CD11b Pattern Myeloid Cells Abnormal Pattern Normal MnnptirPJ52/Glycophorin A Glycophorin+ Red Cells Low to High High Results- CommentsLymphocytes consist predominantly of T cells with normal expression of panT-cell markers and slightly decreased CD4/CD8 ratio, normal proportions ofNK and cytotoxic T cells, and polyclonal B cells. The MDS panel shows normal light scatter properties, decreased expressionof CD33 and abnormal CD16/CD13 and CD16/CD11b patterns. Blasts are notincreased. Glycophorin-positive erythroid cells show partial loss of CD71.Procedure Electronically Signed By:Kan Marmolejo M.D.05/30/2021 This report may include one or more immunohistochemical stain/fluorochromeconjugated monoclonal antibody results that use analyte specific reagents.All positive and negative controls have been reviewed by the attendingpathologist and are satisfactory. The tests were developed and theirperformance characteristics determined by [facility] Pathology department.They have not been cleared or approved by the [place] Food and DrugAdmini stration. The FDA has determined that such clearance or approval isnot necessary. Name Value Range Interpretation Code Description Data Leia rce(s) Supporting Document(s) ID Date Data Source [id number] 06/02/2021 01:09:00 PM [facility] Cytogenetics ReportName: ARBEN QUINTEROMRN: [id number] Number: [id number] Date: 05/25/2021 00:00Received Date: 05/26/2021 14:47Physician(s): ESTEBAN TSAI MD VYAS, SHIKHAR G,MDSpecimen(s) ReceivedA: Bone Marrow-MDS FISH and KaryoClinical Fxtsiwn84-goeq-jhj patient with metastatic rectal cancer s/p chemotherapy,leukocytosis, and anemia.TEST REQUESTED/PERFORMED: Chromosome analysis and fluorescence in situhybridization - FISH DiagnosisA normal female chromosome complement was observed in eleven metaphasesanalyzed. As no chromosomal abnormalities were detected, and no remainingbone marrow specimen to utilize for additional studies, the FISH study wascanceled by Dr. Kan Marmolejo. Please correlate with the concurrentHematopathology report [id number].Electronically Signed By Kamala Rogers MD, PhD AttendingPathologist 06/02/2021 13:09:31Gross DescriptionChromosome Sxxeepui48,XX[11] DescriptionA normal female chromosome complement was observed in eleven metaphasesanalyzed. Within the limits of the resolution of this karyotype analysis,no consistent structural and/or numerical chromosomal aberrations weredetected. Dividing cells were not available to complete this study (20m etaphases). Test DataSpecimen Processed: Bone Marrow Chromosome Analysis:Metaphases Counted Metaphases Analyzed Metaphases Karyotyped BandingTechnique Band Resolution Culture 11 11 2 GTL 400 24 HR unstimulatedDisclaimer: Conventional chromosome analysis may not detect submicroscopicchromosome aberrations or low-level mosaicism. Name Value Range Interpretation Code Description Data Leia rce(s) Supporting Document(s) ID Date Data Source [id number] 03/23/2021 11:18:00 AM EDT [facility] Name Value Range Interpretation Code Description Data Leia rce(s) Supporting Document(s) SARS coronavirus 2 RNA [Presence] in Res piratory specimen by RAY with probe detection NEGATIVE [facility] This lab was ordered by [facility] a nd reported by [facility]. ID Date Data Source [id number] 03/21/2021 02:13:00 PM EDT [facility] DATE OF EXAMINATION: 03/21/2021 13:45 EDT DOP JUAQUIN UNILATERAL HISTORY: Calf pain Right LOWER EXTREMITY VENOUS DOPPLER Duplex scan was performed using B-mode/aguila scale imaging and Doppler spectralanalysis and color flow. FINDINGS: Common femoral and superficial femoral veins were interrogated throughout theircourse, revealing easy compressibility and appropriate augmentation. Thepopliteal vessels are also easily compressible and show no signs of intraluminalthrombus formation. IMPRESSION: Negative study for deep venous thrombosis in the Right lower extremity. Electronically signed in PS360 by: Edwin Holcomb M.D. 03/21/2021 14:07 EDT Name Value Range Interpretation Code Description Data Leia rce(s) Supporting Document(s) ID Date Data Source [id number] 02/22/2021 08:54:00 AM EDT [facility] Name Value Range Interpretation Code Description Data Leia rce(s) Supporting Document(s) SARS-CoV-2 (COVID 19) NEGATIVE - SARS-CoV-2 (COVID19) [facility] This lab was ordered by [facility] a nd reported by [facility]. ID Date Data Source [id number] 02/14/2021 05:12:00 PM EDT [facility] Name Value Range Interpretation Code Description Data Leia rce(s) Supporting Document(s) SARS coronavirus 2 RNA [Presence] in Res piratory specimen by RAY with probe detection NEGATIVE [facility] This lab was ordered by [facility] a nd reported by [facility]. ID Date Data Source [id number] 01/25/2021 10:51:00 AM EDT [facility] Name Value Range Interpretation Code Description Data Leia rce(s) Supporting Document(s) SARS coronavirus 2 RNA [Presence] in Res piratory specimen by RAY with probe detection NEGATIVE [facility] This lab was ordered by [facility] a nd reported by [facility]. ID Date Data Source URINE CULTURE 08/24/2020 12:00:00 AM EST eCW1 ([facility]) Name Value Range Interpretation Code Description Data Leia rce(s) Supporting Document(s) Laboratory studies (set) URINE CULTU RE eCW1 ([facility]) ID Date Data Source UA URINALYSIS 08/24/2020 12:00:00 AM EST eCW1 ([facility]) Name Value Range Interpretation Code Description Data Leia rce(s) Supporting Document(s) UA URINALYSIS eCW1 ([facility]) ID Date Data Source Urinalysis, no micro 07/28/2020 03:17:25 AM EDT eCW1 ([facility]) Name Value Range Interpretation Code Description Data Leia rce(s) Supporting Document(s) 1.020 Spec gravity eCW1 ([facility]) 5 pH eCW1 ([facility]) TRACE Leukocyte eCW1 ([facility]) POSITIVE Nitrate eCW1 ([facility]) 50 Glucose eCW1 ([facility]) 30 Protein eCW1 ([facility]) NEG Ketones eCW1 ([facility]) NORMAL Urobili eCW1 ([facility]) +1 Bilirubin eCW1 ([facility]) 250 Blood eCW1 ([facility]) Internal QC Acceptable (Y/N) e CW1 ([facility]) ID Date Data Source RESPIRATORY PANEL 07/14/2020 08:21:29 AM EDT eCW1 ([facility]) Name Value Range Interpretation Code Description Data Leia rce(s) Supporting Document(s) This respiratory PCR panel detects Influenza A H1, H3 and RESPIRATORY PANEL eCW1 ([facility]) Procedure Social History Code Duration Value Status Description Data Source(s ) Smoking 07/27/2021 12:00:00 AM EDT Former Smoker completed Former Smoker eCW1 ([facility]) Smoking 07/24/2021 12:00:00 AM EDT Former Smoker completed Former Smoker eCW1 ([facility]) Smoking 07/24/2021 12:00:00 AM EDT Former Smoker completed Former Smoker eCW1 ([facility]) Smoking 07/07/2021 12:00:00 AM EDT Former Smoker completed Former Smoker eCW1 ([facility]) Smoking 07/07/2021 12:00:00 AM EDT Former Smoker completed Former Smoker eCW1 ([facility]) Smoking 05/31/2021 12:00:00 AM EDT Former Smoker completed Former Smoker eCW1 ([facility]) Smoking 05/23/2021 12:00:00 AM EDT Former Smoker completed Former Smoker eCW1 ([facility]) Smoking 05/23/2021 12:00:00 AM EDT Former Smoker completed Former Smoker eCW1 ([facility]) Smoking 05/23/2021 12:00:00 AM EDT Former Smoker completed Former Smoker eCW1 ([facility]) Smoking 05/23/2021 12:00:00 AM EDT Former Smoker completed Former Smoker eCW1 ([facility]) Smoking 05/19/2021 12:00:00 AM EDT Former Smoker completed Former Smoker eCW1 ([facility]) Smoking 05/19/2021 12:00:00 AM EDT Former Smoker completed Former Smoker eCW1 ([facility]) Smoking 05/18/2021 12:00:00 AM EDT Patient is a former smoker completed Patient is a former smoker MEDENT ([facility]) Smoking 05/16/2021 12:00:00 AM EDT Former Smoker completed Former Smoker eCW1 ([facility]) Smoking 05/09/2021 12:00:00 AM EDT Former Smoker completed Former Smoker eCW1 ([facility]) Smoking 05/09/2021 12:00:00 AM EDT Former Smoker completed Former Smoker eCW1 ([facility]) Smoking 05/09/2021 12:00:00 AM EDT Former Smoker completed Former Smoker eCW1 ([facility]) Smoking 05/02/2021 12:00:00 AM EDT Former Smoker completed Former Smoker eCW1 ([facility]) Smoking 04/27/2021 12:00:00 AM EDT Former Smoker completed Former Smoker eCW1 ([facility]) Smoking 04/27/2021 12:00:00 AM EDT Former Smoker completed Former Smoker eCW1 ([facility]) Smoking 04/27/2021 12:00:00 AM EDT Former Smoker completed Former Smoker eCW1 ([facility]) Smoking 04/18/2021 12:00:00 AM EDT Former Smoker completed Former Smoker eCW1 ([facility]) Smoking 04/18/2021 12:00:00 AM EDT Former Smoker completed Former Smoker eCW1 ([facility]) Smoking 04/04/2021 12:00:00 AM EDT Former Smoker completed Former Smoker eCW1 ([facility]) Smoking 04/04/2021 12:00:00 AM EDT Former Smoker completed Former Smoker eCW1 ([facility]) Smoking 03/23/2021 12:00:00 AM EDT Former Smoker completed Former Smoker eCW1 ([facility]) Smoking 03/23/2021 12:00:00 AM EDT Former Smoker completed Former Smoker eCW1 ([facility]) Smoking 03/21/2021 12:00:00 AM EDT Former Smoker completed Former Smoker eCW1 ([facility]) Smoking 03/21/2021 12:00:00 AM EDT Former Smoker completed Former Smoker eCW1 ([facility]) Smoking 02/27/2021 12:00:00 AM EDT Former Smoker completed Former Smoker eCW1 ([facility]) Smoking 02/27/2021 12:00:00 AM EDT Former Smoker completed Former Smoker eCW1 ([facility]) Smoking 02/27/2021 12:00:00 AM EDT Former Smoker completed Former Smoker eCW1 ([facility]) Smoking 02/27/2021 12:00:00 AM EDT Former Smoker completed Former Smoker eCW1 ([facility]) Smoking 02/27/2021 12:00:00 AM EDT Former Smoker completed Former Smoker eCW1 ([facility]) Smoking 02/06/2021 12:00:00 AM EDT Former Smoker completed Former Smoker eCW1 ([facility]) Smoking 02/06/2021 12:00:00 AM EDT Former Smoker completed Former Smoker eCW1 ([facility]) Smoking 02/06/2021 12:00:00 AM EDT Former Smoker completed Former Smoker eCW1 ([facility]) Smoking 02/06/2021 12:00:00 AM EDT Former Smoker completed Former Smoker eCW1 ([facility]) Smoking 12/22/2020 12:00:00 AM EST Former Smoker completed Former Smoker eCW1 ([facility]) Smoking 12/22/2020 12:00:00 AM EST Former Smoker completed Former Smoker eCW1 ([facility]) Smoking 12/22/2020 12:00:00 AM EST Former Smoker completed Former Smoker eCW1 ([facility]) Smoking 12/22/2020 12:00:00 AM EST Former Smoker completed Former Smoker eCW1 ([facility]) Smoking 10/18/2020 12:00:00 AM EST Former Smoker completed Former Smoker eCW1 ([facility]) Smoking 10/18/2020 12:00:00 AM EST Former Smoker completed Former Smoker eCW1 ([facility]) Smoking 10/18/2020 12:00:00 AM EST Former Smoker completed Former Smoker eCW1 ([facility]) Smoking 10/18/2020 12:00:00 AM EST Former Smoker completed Former Smoker eCW1 ([facility]) Smoking 09/23/2020 12:00:00 AM EST Former Smoker completed Former Smoker eCW1 ([facility]) Smoking 09/23/2020 12:00:00 AM EST Former Smoker completed Former Smoker eCW1 ([facility]) Smoking 09/23/2020 12:00:00 AM EST Former Smoker completed Former Smoker eCW1 ([facility]) Smoking 08/24/2020 12:00:00 AM EST Former Smoker completed Former Smoker eCW1 ([facility]) Smoking 08/24/2020 12:00:00 AM EST Former Smoker completed Former Smoker eCW1 ([facility]) Smoking 08/24/2020 12:00:00 AM EST Former Smoker completed Former Smoker eCW1 ([facility]) Smoking 07/13/2020 12:00:00 AM EDT Former Smoker completed Former Smoker eCW1 ([facility]) Smoking 07/13/2020 12:00:00 AM EDT Former Smoker completed Former Smoker eCW1 ([facility]) Smoking 07/13/2020 12:00:00 AM EDT Former Smoker completed Former Smoker eCW1 ([facility]) Smoking 07/13/2020 12:00:00 AM EDT Former Smoker completed Former Smoker eCW1 ([facility]) Smoking 07/13/2020 12:00:00 AM EDT Former Smoker completed Former Smoker eCW1 ([facility]) Vital Signs ID Date Data Source UNK Name Value Range Interpretation Code Description Data Source(s) Heart rate 98 /min 98 /min eCW1 ([facility]) Body weight 181 [lb_av] 181 [lb_av] eCW1 ([facility]) Body weight 82.1 kg 82.1 kg eCW1 ([facility]) Body height 61.5 [in_i] 61.5 [in_i] W1 ([facility]) Body mass index (BMI) [Ratio] 33.64 kg/m2 33.64 kg/m2 eCW1 ([facility]) Respiratory rate 18 /min 18 /min eCW1 ([facility]) Body temperature 97.3 [degF] 97.3 [degF] eCW1 ( [facility]) Systolic blood pressure 124 mm[Hg] 124 mm[Hg] e CW1 ([facility]) Diastolic blood pressure 62 mm[Hg] 62 mm[Hg] eCW1 ([facility]) Body weight 82.55 kg 82.55 kg eCW1 ([facility]) Body weight 182 [lb_av] 182 [lb_av] eCW1 ([facility]) Heart rate 86 /min 86 /min eCW1 ([facility]) Body height 61.5 [in_i] 61.5 [in_i] eCW1 ([facility]) Respiratory rate 18 /min 18 /min eCW1 ([facility]) Body temperature 97.5 [degF] 97.5 [degF] eCW1 ( [facility]) Body mass index (BMI) [Ratio] 33.83 kg/m2 33.83 kg/m2 eCW1 ([facility]) Systolic blood pressure 122 mm[Hg] 122 mm[Hg] e CW1 ([facility]) Diastolic blood pressure 62 mm[Hg] 62 mm[Hg] eCW1 ([facility]) Body weight 186 [lb_av] 186 [lb_av] eCW1 ([facility]) Body weight 84.37 kg 84.37 kg eCW1 ([facility]) Body height 61.5 [in_i] 61.5 [in_i] eCW1 ([facility]) Body mass index (BMI) [Ratio] 34.57 kg/m2 34.57 kg/m2 W1 ([facility]) Heart rate 85 /min 85 /min eCW1 ([facility]) Respiratory rate 19 /min 19 /min eCW1 ([facility]) Body temperature 97.2 [degF] 97.2 [degF] eCW1 ( [facility]) Systolic blood pressure 136 mm[Hg] 136 mm[Hg] e CW1 ([facility]) Diastolic blood pressure 82 mm[Hg] 82 mm[Hg] eCW1 ([facility]) Heart rate 83 /min 83 /min eCW1 ([facility]) Body weight 186.4 [lb_av] 186.4 [lb_av] [facility]) Respiratory rate 20 /min 20 /min eCW1 ([facility]) Body temperature 97.8 [degF] 97.8 [degF] eCW1 ( [facility]) Body mass index (BMI) [Ratio] 34.65 kg/m2 34.65 kg/m2 eCW1 ([facility]) Body weight 84.55 kg 84.55 kg eCW1 (Formerly [facility]) Body height 61.5 [in_i] 61.5 [in_i] eCW1 ([facility]) Body weight 200 [lb_av] 200 [lb_av] eCW1 ([facility]) Body height 61.5 [in_i] 61.5 [in_i] eCW1 ([facility]) Body mass index (BMI) [Ratio] 37.17 kg/m2 37.17 kg/m2 eCW1 ([facility]) Heart rate 88 /min 88 /min eCW1 ([facility]) Respiratory rate 18 /min 18 /min eCW1 (Formerly [facility], [facility]) Body temperature 99.4 [degF] 99.4 [degF] eCW1 ( [facility]) Systolic blood pressure 123 mm[Hg] 123 mm[Hg] e CW1 ([facility]) Diastolic blood pressure 58 mm[Hg] 58 mm[Hg] eCW1 ([facility]) Systolic blood pressure 130 mm[Hg] 130 mm[Hg] M EDENT ([facility]) Diastolic blood pressure 82 mm[Hg] 82 mm[Hg] MEDENT ([facility]) Heart rate 64 /min 64 /min MEDENT ([facility] Body temperature 96.2 [degF] 96.2 [degF] MEDENT ([facility]) Body height 62 [in_i] 62 [in_i] [facility] 5'2" Body weight 190.00 [lb_av] 190.00 [lb_av] MEDEN T ([facility]) Body weight 86.184 kg 86.184 kg MEDENT ([facility] Body mass index (BMI) [Ratio] 34.7 kg/m2 34.7 k g/m2 [facility] ([facility] Body weight 200 [lb_av] 200 [lb_av] eCW1 ([facility]) Body height 61.5 [in_i] 61.5 [in_i] eCW1 ([facility]) Body mass index (BMI) [Ratio] 37.17 kg/m2 37.17 kg/m2 eCW1 ([facility]) Heart rate 65 /min 65 /min eCW1 ([facility]) Respiratory rate 18 /min 18 /min eCW1 (Formerly [facility], [facility]) Body temperature 96.6 [degF] 96.6 [degF] eCW1 ( [facility]) Systolic blood pressure 125 mm[Hg] 125 mm[Hg] e CW1 ([facility]) Diastolic blood pressure 60 mm[Hg] 60 mm[Hg] eCW1 ([facility]) Body temperature 96.9 [degF] 96.9 [degF] eCW1 ( [facility]) Systolic blood pressure 132 mm[Hg] 132 mm[Hg] e CW1 ([facility]) Diastolic blood pressure 61 mm[Hg] 61 mm[Hg] eCW1 ([facility]) Body weight 200 [lb_av] 200 [lb_av] eCW1 ([facility]) Body weight kg eCW1 (Formerly [facility]) Body height 61.5 [in_i] 61.5 [in_i] eCW1 ([facility]) Body mass index (BMI) [Ratio] 37.17 kg/m2 37.17 kg/m2 eCW1 ([facility]) Heart rate 64 /min 64 /min eCW1 ([facility]) Respiratory rate 17 /min 17 /min eCW1 (Formerly [facility], [facility]) Body weight 200 [lb_av] 200 [lb_av] eCW1 ([facility]) Body weight kg eCW1 (Formerly [facility]) Body height 61.5 [in_i] 61.5 [in_i] eCW1 ([facility]) Body mass index (BMI) [Ratio] 37.17 kg/m2 37.17 kg/m2 eCW1 ([facility]) Heart rate 80 /min 80 /min eCW1 ([facility]) Respiratory rate 20 /min 20 /min eCW1 ([facility]ly [facility], [facility]) Body temperature 98.4 [degF] 98.4 [degF] eCW1 ( [facility]) Systolic blood pressure 148 mm[Hg] 148 mm[Hg] e CW1 ([facility]) Diastolic blood pressure 65 mm[Hg] 65 mm[Hg] eCW1 ([facility]) Body weight 200 [lb_av] 200 [lb_av] eCW1 ([facility]) Body weight kg eCW1 (Formerly [facility]) Body height 61.5 [in_i] 61.5 [in_i] eCW1 ([facility]) Body mass index (BMI) [Ratio] 37.17 kg/m2 37.17 kg/m2 eCW1 ([facility]) Heart rate 65 /min 65 /min eCW1 ([facility]) Respiratory rate 18 /min 18 /min eCW1 (Formerly [facility], [facility]) Body temperature 95.7 [degF] 95.7 [degF] eCW1 ( [facility]) Systolic blood pressure 118 mm[Hg] 118 mm[Hg] e CW1 ([facility]) Diastolic blood pressure 76 mm[Hg] 76 mm[Hg] eCW1 ([facility]) Systolic blood pressure 116 mm[Hg] 116 mm[Hg] e CW1 ([facility]) Diastolic blood pressure 54 mm[Hg] 54 mm[Hg] eCW1 ([facility]) Body weight 200 [lb_av] 200 [lb_av] eCW1 ([facility]) Body weight kg eCW1 (Formerly [facility]) Body height 61.5 [in_i] 61.5 [in_i] eCW1 ([facility]) Body mass index (BMI) [Ratio] 37.17 kg/m2 37.17 kg/m2 eCW1 ([facility]) Heart rate 78 /min 78 /min eCW1 ([facility]) Respiratory rate 18 /min 18 /min eCW1 ([facility]ly [facility], [facility]) Body temperature 98.5 [degF] 98.5 [degF] eCW1 ( [facility]) Body weight 200 [lb_av] 200 [lb_av] eCW1 ([facility]) Body weight kg eCW1 (Formerly [facility]) Body height 61.5 [in_i] 61.5 [in_i] eCW1 ([facility]) Body mass index (BMI) [Ratio] 37.17 kg/m2 37.17 kg/m2 eCW1 ([facility]) Heart rate 85 /min 85 /min eCW1 ([facility]) Respiratory rate 18 /min 18 /min eCW1 ([facility]ly [facility], [facility]) Body temperature 98.4 [degF] 98.4 [degF] eCW1 ( [facility]) Systolic blood pressure 160 mm[Hg] 160 mm[Hg] e CW1 ([facility]) Diastolic blood pressure 71 mm[Hg] 71 mm[Hg] eCW1 ([facility]) Body weight 200 [lb_av] 200 [lb_av] eCW1 ([facility]) Body height 61.5 [in_i] 61.5 [in_i] eCW1 ([facility]) Body mass index (BMI) [Ratio] 37.17 kg/m2 37.17 kg/m2 eCW1 ([facility]) Heart rate 82 /min 82 /min eCW1 ([facility]) Respiratory rate 16 /min 16 /min eCW1 ([facility]ly [facility], [facility]) Body temperature 97.1 [degF] 97.1 [degF] eCW1 ( [facility]) Systolic blood pressure 176 mm[Hg] 176 mm[Hg] e CW1 ([facility]) Diastolic blood pressure 81 mm[Hg] 81 mm[Hg] eCW1 ([facility]) Body mass index (BMI) [Ratio] 36.43 kg/m2 36.43 kg/m2 eCW1 ([facility]) Heart rate 75 /min 75 /min eCW1 ([facility]) Respiratory rate 18 /min 18 /min eCW1 (Formerly [facility], [facility]) Body temperature 97.9 [degF] 97.9 [degF] eCW1 ( [facility]) Body weight 196 [lb_av] 196 [lb_av] eCW1 ([facility]) Diastolic blood pressure 52 mm[Hg] 52 mm[Hg] eCW1 ([facility]) Systolic blood pressure 94 mm[Hg] 94 mm[Hg] e CW1 ([facility]) Body height 61.5 [in_i] 61.5 [in_i] eCW1 ([facility]) Body weight 196 [lb_av] 196 [lb_av] eCW1 ([facility]) Body height 61.5 [in_i] 61.5 [in_i] eCW1 ([facility]) Body mass index (BMI) [Ratio] 36.43 kg/m2 36.43 kg/m2 eCW1 ([facility]) Heart rate 70 /min 70 /min eCW1 ([facility]) Respiratory rate 18 /min 18 /min eCW1 ([facility]ly [facility], [facility]) Body temperature 98.6 [degF] 98.6 [degF] eCW1 ( [facility]) Systolic blood pressure 110 mm[Hg] 110 mm[Hg] e CW1 ([facility]) Diastolic blood pressure 70 mm[Hg] 70 mm[Hg] eCW1 ([facility]) Body weight 196 [lb_av] 196 [lb_av] eCW1 ([facility]) Body height 61.5 [in_i] 61.5 [in_i] eCW1 ([facility]) Body mass index (BMI) [Ratio] 36.43 kg/m2 36.43 kg/m2 eCW1 ([facility]) Heart rate 74 /min 74 /min eCW1 ([facility]) Respiratory rate 18 /min 18 /min eCW1 ([facility]ly [facility], [facility]) Body temperature 98.4 [degF] 98.4 [degF] eCW1 ( [facility]) Systolic blood pressure 108 mm[Hg] 108 mm[Hg] e CW1 ([facility]) Diastolic blood pressure 69 mm[Hg] 69 mm[Hg] eCW1 ([facility]) Body mass index (BMI) [Ratio] 36.80 kg/m2 36.80 kg/m2 eCW1 ([facility]) Body weight 198 [lb_av] 198 [lb_av] eCW1 ([facility]) Respiratory rate 20 /min 20 /min eCW1 ([facility]ly [facility], [facility]) Body temperature 97.4 [degF] 97.4 [degF] eCW1 ( [facility]) Systolic blood pressure 132 mm[Hg] 132 mm[Hg] e CW1 ([facility]) Diastolic blood pressure 62 mm[Hg] 62 mm[Hg] eCW1 ([facility]) Body height 61.5 [in_i] 61.5 [in_i] eCW1 ([facility]) Heart rate 82 /min 82 /min eCW1 ([facility]) Body weight 198 [lb_av] 198 [lb_av] eCW1 ([facility]) Body height 61.5 [in_i] 61.5 [in_i] eCW1 ([facility]) Body mass index (BMI) [Ratio] 36.80 kg/m2 36.80 kg/m2 eCW1 ([facility]) Heart rate 78 /min 78 /min eCW1 ([facility]) Respiratory rate 18 /min 18 /min eCW1 ([facility]ly [facility], [facility]) Body temperature 98.0 [degF] 98.0 [degF] eCW1 ( [facility]) Systolic blood pressure 139 mm[Hg] 139 mm[Hg] e CW1 ([facility]) Diastolic blood pressure 79 mm[Hg] 79 mm[Hg] eCW1 ([facility]) Body height 62 [in_i] 62 [in_i] [facility] ([facility]) 5'2" Diastolic blood pressure 60 mm[Hg] 60 mm[Hg] [facility] ([facility]) Systolic blood pressure 152 mm[Hg] 152 mm[Hg] M EDENT ([facility]) Body weight 199.00 [lb_av] 199.00 [lb_av] MEDEN T ([facility]) Body mass index (BMI) [Ratio] 36.4 kg/m2 36.4 k g/m2 [facility] ([facility]) [place] body weight 110 [lb_av] 110 [facility] Body weight 90.266 kg 90.266 kg [facility] ([facility]) Body surface area Derived from formula 1.91 m2 1.91 m2 [facility] ([facility]) Body weight 198 [lb_av] 198 [lb_av] eCW1 ([facility]) Body height 61.5 [in_i] 61.5 [in_i] eCW1 ([facility]) Body mass index (BMI) [Ratio] 36.80 kg/m2 36.80 kg/m2 W1 ([facility]) Heart rate 82 /min 82 /min eCW1 ([facility]) Respiratory rate 18 /min 18 /min eCW1 ([facility]ly [facility], [facility]) Body temperature 98.0 [degF] 98.0 [degF] eCW1 ( [facility]) Systolic blood pressure 132 mm[Hg] 132 mm[Hg] e CW1 ([facility]) Diastolic blood pressure 76 mm[Hg] 76 mm[Hg] eCW1 ([facility]) Body weight [lb_av] eCW1 (Formerly [facility]) Body height 61.5 [in_i] 61.5 [in_i] eCW1 ([facility]) Body mass index (BMI) [Ratio] 39.22 kg/m2 39.22 kg/m2 eCW1 ([facility]) Heart rate 63 /min 63 /min eCW1 ([facility]) Respiratory rate 18 /min 18 /min eCW1 ([facility]ly [facility], [facility]) Body temperature 98.0 [degF] 98.0 [degF] eCW1 ( [facility]) Systolic blood pressure 145 mm[Hg] 145 mm[Hg] e CW1 ([facility]) Diastolic blood pressure 67 mm[Hg] 67 mm[Hg] eCW1 ([facility]) Body weight 208 [lb_av] 208 [lb_av] eCW1 ([facility]) Body height 61.5 [in_i] 61.5 [in_i] eCW1 ([facility]) Heart rate 70 /min 70 /min eCW1 ([facility]) Respiratory rate 20 /min 20 /min eCW1 ([facility]ly [facility], [facility]) Body temperature 96.6 [degF] 96.6 [degF] eCW1 ( [facility]) Body mass index (BMI) [Ratio] 38.66 kg/m2 38.66 kg/m2 eCW1 ([facility]) Systolic blood pressure 144 mm[Hg] 144 mm[Hg] e CW1 ([facility]) Diastolic blood pressure 72 mm[Hg] 72 mm[Hg] eCW1 ([facility]) Body weight 208 [lb_av] 208 [lb_av] eCW1 ([facility]) Body height 61.5 [in_i] 61.5 [in_i] eCW1 ([facility]) Body mass index (BMI) [Ratio] 38.66 kg/m2 38.66 kg/m2 eCW1 ([facility]) Heart rate 71 /min 71 /min eCW1 ([facility]) Respiratory rate 20 /min 20 /min eCW1 ([facility]ly [facility], [facility]) Body temperature 96.5 [degF] 96.5 [degF] eCW1 ( [facility]) Systolic blood pressure 138 mm[Hg] 138 mm[Hg] e CW1 ([facility]) Diastolic blood pressure 72 mm[Hg] 72 mm[Hg] eCW1 ([facility]) Body weight 206 [lb_av] 206 [lb_av] eCW1 ([facility]) Body height 61.5 [in_i] 61.5 [in_i] eCW1 ([facility]) Body mass index (BMI) [Ratio] 38.29 kg/m2 38.29 kg/m2 eCW1 ([facility]) Heart rate 67 /min 67 /min eCW1 ([facility]) Respiratory rate 18 /min 18 /min eCW1 ([facility], [facility]) Body temperature 97.8 [degF] 97.8 [degF] eCW1 ( [facility]) Systolic blood pressure 122 mm[Hg] 122 mm[Hg] e CW1 ([facility]) Diastolic blood pressure 69 mm[Hg] 69 mm[Hg] eCW1 ([facility]) Patient Treatment Plan of Care Planned Activity Planned Date Details Description Data Source (s) methenamine hippurate 1000 MG Oral Tablet 07/24/2021 12:00:00 AM ED T eCW1 ([facility]) methenamine hippurate 1000 MG Oral Tablet 07/24/2021 12:00:00 AM ED T eCW1 ([facility]) Sulfamethoxazole 800 MG / Trimethoprim 160 MG Oral Tab let [Bactrim] 05/22/2021 12:00:00 AM EDT eCW1 (Formerly [facility]) NITROFURANTOIN, MACROCRYSTALS 25 MG / Ni trofurantoin, Monohydrate 75 MG Oral Capsule [Macrobid] 05/19/2021 12:00:00 AM EDT eC W1 ([facility]) NITROFURANTOIN, MACROCRYSTALS 25 MG / Ni trofurantoin, Monohydrate 75 MG Oral Capsule [Macrobid] 05/19/2021 12:00:00 AM EDT eC W1 ([facility]) 24 HR tolterodine tartrate 4 MG Extended Release Oral Capsule 04/27/2021 12:00:00 AM EDT eCW1 ([facility]ly [facility]) 24 HR tolterodine tartrate 4 MG Extended Release Oral Capsule 04/27/2021 12:00:00 AM EDT eCW1 ([facility]ly [facility]) 24 HR tolterodine tartrate 4 MG Extended Release Oral Capsule 04/27/2021 12:00:00 AM EDT eCW1 ([facility]) Amoxicillin 875 MG / Clavulanate 125 MG Oral Tablet 03/21/20 21 12:00:00 AM EDT eCW1 (On license of [facility]) Amoxicillin 875 MG / Clavulanate 125 MG Oral Tablet 03/21/20 21 12:00:00 AM EDT eCW1 (On license of [facility]) Prednisone 50 MG Oral Tablet 02/15/2021 12:00:00 AM EDT eCW1 ([facility]) Diphenhydramine Hydrochloride 50 MG Oral Capsule 02/15/2021 12:00:0 0 AM EDT eCW1 ([facility]) Myrbetriq 50 MG 02/06/2021 12:00:00 AM EDT eCW1 ([facility]) Myrbetriq 50 MG 02/06/2021 12:00:00 AM EDT eCW1 ([facility]) Myrbetriq 50 MG 02/06/2021 12:00:00 AM EDT eCW1 ([facility]) Myrbetriq 50 MG 02/06/2021 12:00:00 AM EDT eCW1 ([facility]) 24 HR Oxybutynin chloride 15 MG Extended Release Oral Tablet 12/22/2020 12:00:00 AM EST eCW1 ([facility]) 24 HR Oxybutynin chloride 15 MG Extended Release Oral Tablet 12/22/2020 12:00:00 AM EST eCW1 ([facility]) 24 HR Oxybutynin chloride 15 MG Extended Release Oral Tablet 12/22/2020 12:00:00 AM EST eCW1 ([facility]) 3 ML Insulin Lispro 100 UNT/ML Pen Injector [Humalog] 11/22/2020 12:00:00 AM EST eCW1 (Formerly [facility], [facility]) Simplicity Adult Brief 32"-44" - 10/18/2020 12:00:00 AM EST eCW1 ([facility]) Simplicity Adult Brief 32"-44" - 10/18/2020 12:00:00 AM EST eCW1 ([facility]) Simplicity Adult Brief 32"-44" - 10/18/2020 12:00:00 AM EST eCW1 ([facility]) Simplicity Adult Brief 32"-44" - 10/18/2020 12:00:00 AM EST eCW1 ([facility]) NITROFURANTOIN, MACROCRYSTALS 25 MG / Ni trofurantoin, Monohydrate 75 MG Oral Capsule [Macrobid] 09/23/2020 12:00:00 AM EST eC W1 ([facility]) NITROFURANTOIN, MACROCRYSTALS 25 MG / Ni trofurantoin, Monohydrate 75 MG Oral Capsule [Macrobid] 09/23/2020 12:00:00 AM EST eC W1 ([facility]) NITROFURANTOIN, MACROCRYSTALS 25 MG / Ni trofurantoin, Monohydrate 75 MG Oral Capsule [Macrobid] 09/23/2020 12:00:00 AM EST eC W1 ([facility]) NITROFURANTOIN, MACROCRYSTALS 25 MG / Ni trofurantoin, Monohydrate 75 MG Oral Capsule [Macrobid] 09/23/2020 12:00:00 AM EST eC W1 ([facility]) NITROFURANTOIN, MACROCRYSTALS 25 MG / Ni trofurantoin, Monohydrate 75 MG Oral Capsule [Macrobid] 09/23/2020 12:00:00 AM EST eC W1 ([facility]) NITROFURANTOIN, MACROCRYSTALS 25 MG / Ni trofurantoin, Monohydrate 75 MG Oral Capsule [Macrobid] 09/23/2020 12:00:00 AM EST eC W1 ([facility]) Sulfamethoxazole 800 MG / Trimethoprim 160 MG Oral Tab let [Bactrim] 08/24/2020 12:00:00 AM EST eCW1 ([facility]) Oxybutynin chloride 5 MG Oral Tablet 08/24/2020 12:00:00 AM EST eCW1 ([facility]) Sulfamethoxazole 800 MG / Trimethoprim 160 MG Oral Tab let [Bactrim] 08/24/2020 12:00:00 AM EST eCW1 ([facility]) Oxybutynin chloride 5 MG Oral Tablet 08/24/2020 12:00:00 AM EST eCW1 ([facility]) Sulfamethoxazole 800 MG / Trimethoprim 160 MG Oral Tab let [Bactrim] 08/24/2020 12:00:00 AM EST eCW1 ([facility]) Oxybutynin chloride 5 MG Oral Tablet 08/24/2020 12:00:00 AM EST eCW1 ([facility]) Levofloxacin 250 MG Oral Tablet 08/01/2020 12:00:00 AM EDT eCW1 ([facility]) Sulfamethoxazole 800 MG / Trimethoprim 160 MG Oral Tab let [Bactrim] 07/28/2020 12:00:00 AM EDT eCW1 ([facility]) cefdinir 300 MG Oral Capsule 07/13/2020 12:00:00 AM EDT eCW1 ([facility]) cefdinir 300 MG Oral Capsule 07/13/2020 12:00:00 AM EDT eCW1 ([facility]) cefdinir 300 MG Oral Capsule 07/13/2020 12:00:00 AM EDT eCW1 ([facility]) cefdinir 300 MG Oral Capsule 07/13/2020 12:00:00 AM EDT eCW1 ([facility]) cefdinir 300 MG Oral Capsule 07/13/2020 12:00:00 AM EDT eCW1 ([facility])
--- OUTSIDE RECORDS SUMMARY | 2021-07-28 04:36 | CCD ---
Author Author [facility] Address Unknown Phone Unavailable Care Team Providers Care Egg Worker Name Role Phone Jennifer Tsai Unavailable Unavailable [...] Oneida BANDA DPM Unavailable Unavailable Keyon Blas STEAMTABLE WORKER Unavailable Unavailable Keyon Blas STEAMTABLE WORKER Unavailable Unavailable Keyon Blas STEAMTABLE WORKER Unavailable Unavailable Keyon Blas STEAMTABLE WORKER Unavailable Unavailable Keyon Blas STEAMTABLE WORKER Unavailable Unavailable Keyon Blas STEAMTABLE WORKER Unavailable Unavailable Keyon Blas STEAMTABLE WORKER Unavailable Unavailable Alberry, D Rani STEAMTABLE WORKER Unavailable Unavailable Alberry, D Rani STEAMTABLE WORKER Unavailable Unavailable Alberry, D Rani STEAMTABLE WORKER Unavailable Unavailable Alberry, D Rani STEAMTABLE WORKER Unavailable Unavailable Alberry, D Rani STEAMTABLE WORKER Unavailable Unavailable Alberry, D Rani STEAMTABLE WORKER Unavailable Unavailable Alberry, D Rani STEAMTABLE WORKER Unavailable Unavailable Alberry, D Rani STEAMTABLE WORKER Unavailable Unavailable Alberry, D Rani STEAMTABLE WORKER Unavailable Unavailable Alberry, D Rani STEAMTABLE WORKER Unavailable Unavailable Alberry, D Rani STEAMTABLE WORKER Unavailable Unavailable Alberry, D Rani STEAMTABLE WORKER Unavailable Unavailable Alberry, D Rani STEAMTABLE WORKER Unavailable Unavailable Alberry, D Rani STEAMTABLE WORKER Unavailable Unavailable Alberry, D Rani STEAMTABLE WORKER Unavailable Unavailable Alberry, D Rani STEAMTABLE WORKER Unavailable Unavailable Alberry, D Rani STEAMTABLE WORKER Unavailable Unavailable Alberry, D Rani STEAMTABLE WORKER Unavailable Unavailable Alberry, D Rani STEAMTABLE WORKER Unavailable Unavailable Alberry, D Rani STEAMTABLE WORKER Unavailable Unavailable Alberry, D Rani STEAMTABLE WORKER Unavailable Unavailable Alberry, D Rani STEAMTABLE WORKER Unavailable Unavailable Alberry, D Rani STEAMTABLE WORKER Unavailable Unavailable Alberry, D Rani STEAMTABLE WORKER Unavailable Unavailable Alberry, D Rani STEAMTABLE WORKER Unavailable Unavailable Alberry, D Rani STEAMTABLE WORKER Unavailable Unavailable Alberry, D Rani STEAMTABLE WORKER Unavailable Unavailable Alberry, D Rani STEAMTABLE WORKER Unavailable Unavailable Alberry, D Rani STEAMTABLE WORKER Unavailable Unavailable Alberry, D Rani STEAMTABLE WORKER Unavailable Unavailable Alberry, D Rani STEAMTABLE WORKER Unavailable Unavailable Alberry, D Rani STEAMTABLE WORKER Unavailable Unavailable Alberry, D Rani STEAMTABLE WORKER Unavailable Unavailable Alberry, D Rani STEAMTABLE WORKER Unavailable Unavailable Alberry, D Rani STEAMTABLE WORKER Unavailable Unavailable Alberry, D Rani STEAMTABLE WORKER Unavailable Unavailable Alberry, D Rani STEAMTABLE WORKER Unavailable Unavailable Alberry, D Rani STEAMTABLE WORKER Unavailable Unavailable Alberry, D Rani STEAMTABLE WORKER Unavailable Unavailable Alberry, D Rani STEAMTABLE WORKER Unavailable Unavailable Alberry, D Rani STEAMTABLE WORKER Unavailable Unavailable Alberry, D Rani STEAMTABLE WORKER Unavailable Unavailable Alberry, D Rani STEAMTABLE WORKER Unavailable Unavailable Alberry, D Rani STEAMTABLE WORKER Unavailable Unavailable Alberry, D Rani STEAMTABLE WORKER Unavailable Unavailable Alberry, D Rani STEAMTABLE WORKER Unavailable Unavailable Alberry, D Rani STEAMTABLE WORKER Unavailable Unavailable Alberry, D Rani STEAMTABLE WORKER Unavailable Unavailable Mat Tilley MD Unavailable Unavailable [...] Eric SANTANA MD Unavailable Unavailable SEMEL, Eric ASNTANA MD Unavailable Unavailable Re-disclosure Warning The records [...] is protected by Article 27-F of the [facility] Public Health law. If you continue you may have access to information: Regarding HIV / AIDS; Provided by facilities licensed or operated by the [facility] Office of Mental Health; or Provided by the [facility] Office for People With Developmental Disabilities. If such information is present, then the following [facility] mandated warning applies: This information has been [...] law may result in a fine or long-term sentence or both. A general authorization for [...] Date Indications Data Source(s ) [place] [address] [facility] [address] 07/27/2021 12:00:00 AM EDT [facility]CW[facility] ([facility] Unknown [address] [facility] [address] 07/26/2021 12:00:00 AM EDT [facility] [address] [facility] [address] 07/24/2021 12:00:00 AM EDT eCW1 ([facility] Unknown [address] [facility] [address] 07/19/2021 12:00:00 AM EDT eCW1 ([facility]) [place] [address] [facility] [address] 07/07/2021 12:00:00 AM EDT eCW1 [facility]) Outpatient Attender: Lissa Tilley MD 06/13/2021 12:00:00 AM EDT [facility] Outpatient [address] [facility] [address] 05/31/2021 12:00:00 AM EDT eCW1 ([facility]) Unknown [address] [facility] [address] 05/26/2021 12:00:00 AM EDT eCW1 ([facility]) Outpatient Admitter: Esteban Gamboaer: Esteban Tsai 05/25/2021 12:00:00 AM EDT Anemia, unspecified [facility] Anemia, unspecified ([id number]) For Template [facility] [address] [place] [address] 05/23/2021 12:00:00 AM EDT eCW1 ([facility]) Unknown [address] [facility] [address] 05/22/2021 12:00:00 AM EDT eCW1 ([facility]) Outpatient [address] [facility] [address] 05/19/2021 12:00:00 AM EDT eCW1 ([facility]) Unknown [address] [facility] [address] 05/19/2021 12:00:00 AM EDT eCW1 ([facility]) Outpatient Attender: MAX JENKINS MD Main Office 05/18/2021 11:00:0 0 AM EDT MEDENT ([facility]) Unknown [address] [facility] [address] 05/17/2021 12:00:00 AM EDT eCW1 ([facility]) Outpatient [address] [facility] [address] 05/16/2021 12:00:00 AM EDT eCW1 ([facility]) Unknown [address] [facility] [address] 05/12/2021 12:00:00 AM EDT eCW1 ([facility]) Outpatient [address] [facility] [address] 05/09/2021 12:00:00 AM EDT eCW1 ([facility]) Unknown [address] [facility] [address] 05/04/2021 12:00:00 AM EDT eCW1 ([facility]) Outpatient [address] [facility] [address] 05/02/2021 12:00:00 AM EDT eCW1 ([facility]) Outpatient [address] [facility] [address] 04/27/2021 12:00:00 AM EDT eCW1 ([facility]) Unknown [address] [facility], [place] [address] 04/27/2021 12:00:00 AM EDT eCW1 ([facility]) ([id number]) For Template [facility] [address] [place] [address] 04/25/2021 12:00:00 AM EDT eCW1 ([facility]) Outpatient [address] [facility], [facility] [address] 04/18/2021 12:00:00 AM EDT eCW1 ([facility]) Unknown [address] [facility] [address] 04/10/2021 12:00:00 AM EDT eCW1 ([facility]) Unknown [address] [facility] [address] 04/05/2021 12:00:00 AM EDT eCW1 ([facility]) (WND [id number]) New Patient 120 Min [address] [place] [address] 04/04/2021 12:00:00 AM EDT eCW1 ([facility]) Outpatient Attender: RIC BANDA [facility] Office 03/15 02:45:00 PM EDT MEDENT ([facility] Outpatient [address] [facility] Y [address] 03/23/2021 12:00:00 AM EDT eCW1 ([facility]) Outpatient Attender: Rani MAGDALENOP 03/21/2021 02:13 :00 PM [facility] Outpatient [address] [facility] Y [address] 03/21/2021 12:00:00 AM EDT eCW1 ([facility]) Unknown [address] [facility] Y [address] 03/21/2021 12:00:00 AM EDT eCW1 ([facility]) Unknown [address] [facility] [address] 03/20/2021 12:00:00 AM EDT eCW1 ([facility]) Unknown [address] [facility] Y [address] 03/17/2021 12:00:00 AM EDT eCW1 ([facility]) Unknown [address] [facility] [place] [address] 03/07/2021 12:00:00 AM EDT eCW1 ([facility]) Unknown [address] [facility] [address] 03/06/2021 12:00:00 AM EDT eCW1 ([facility]) Outpatient [address] [facility] [address] 02/27/2021 12:00:00 AM EDT eCW1 ([facility]) Unknown [address] [facility] Y [address] 02/27/2021 12:00:00 AM EDT eCW1 ([facility]) Unknown [address] [facility] [address] 02/15/2021 12:00:00 AM EDT eCW1 ([facility]) Unknown [address] [facility] Y [address] 02/07/2021 12:00:00 AM EDT eCW1 ([facility]) Outpatient [address] [facility] Y [address] 02/06/2021 12:00:00 AM EDT [facility]CW1 [facility] [place] (TCM) Transition of Care Visit [address] [place] [address] 02/02/2021 12:00:00 AM EDT eCW1 ([facility]) Outpatient Attender: RADAMES Moseley/Sonia/Raza/Lyndsey indkym 02/01/2021 10:30:00 AM EDT MEDENT ([facility] Unknown [address] [facility] [address] 01/30/2021 12:00:00 AM EDT eCW1 ([facility]) Unknown [address] [facility] Y [address] 01/23/2021 12:00:00 AM EDT eCW1 ([facility]) Outpatient [address] [facility] [address] 12/22/2020 12:00:00 AM EST [facility]CW1 [facility] Unknown [address] [facility] [address] 12/21/2020 12:00:00 AM EST eCW1 ([facility]) Unknown [address] [facility] [address] 11/22/2020 12:00:00 AM EST eCW1 ([facility]) Unknown [address] [facility], [place] [address] 10/25/2020 12:00:00 AM EST eCW1 ([facility]) Outpatient [address] [facility] [address] 10/18/2020 12:00:00 AM EST eCW1 ([facility]) Unknown [address] [facility] [address] 10/18/2020 12:00:00 AM EST eCW1 ([facility]) Outpatient [address] [facility] [address] 10/03/2020 12:00:00 AM EST eCW1 ([facility]) (Cysto1) Urology [address] [place] [address] 09/23/2020 12:00:00 AM EST eCW1 ([facility]) Unknown [address] [facility] [address] 09/22/2020 12:00:00 AM EST eCW1 ([facility]) Unknown [address] [facility] [address] 09/05/2020 12:00:00 AM EST eCW1 ([facility]) Unknown [address] [facility] [address] 08/26/2020 12:00:00 AM EST eCW1 ([facility]) Outpatient [address] [facility] Y [address] 08/24/2020 12:00:00 AM EST eCW1 ([facility]) Unknown [address] [facility] Y [address] 08/01/2020 12:00:00 AM EDT eCW1 ([facility]) Unknown [address] [facility] [address] 07/28/2020 12:00:00 AM EDT eCW1 ([facility]) Unknown [address] [facility] [address] 07/14/2020 12:00:00 AM EDT eCW1 ([facility]) Outpatient [address] [facility] [address] 07/13/2020 12:00:00 AM EDT eCW1 ([facility]) Unknown [address] [facility] [address] 07/13/2020 12:00:00 AM EDT eCW1 ([facility]) Immunizations Vaccine Date Status Description Data Source(s) COVID-19 VACCINE Moderna 06/12/2021 12:00:00 AM EDT completed [employer] Vaccine Series Complete: YESThis Data wa s Submitted to [facility] Via [employer]. COVID-19 VACCINE Moderna 12/18/2020 12:00:00 AM EST completed [facility] Vaccine Series Complete: YESThis Data wa s Submitted to [facility] Via [employer]. COVID-19 dose #1 given elsewhere Unspecified 11/20/2020 09:0 9:00 AM EST completed eCW1 ([facility]) COVID-19 dose #1 given elsewhere Unspecified 11/20/2020 09:0 9:00 AM EST completed eCW1 ([facility]) COVID-19 dose #1 given elsewhere Unspecified 11/20/2020 09:0 9:00 AM EST completed eCW1 ([facility]) COVID-19 dose #1 given elsewhere Unspecified 11/20/2020 09:0 9:00 AM EST completed eCW1 ([facility]) COVID-19 dose #1 given elsewhere Unspecified 11/20/2020 09:0 9:00 AM EST completed eCW1 ([facility]) COVID-19 dose #1 given elsewhere Unspecified 11/20/2020 09:0 9:00 AM EST completed eCW1 ([facility]) COVID-19 dose #1 given elsewhere Unspecified 11/20/2020 09:0 9:00 AM EST completed eCW1 ([facility]) COVID-19 dose #1 given elsewhere Unspecified 11/20/2020 09:0 9:00 AM EST completed eCW1 ([facility]) COVID-19 dose #1 given elsewhere Unspecified 11/20/2020 09:0 9:00 AM EST completed eCW1 ([facility]) COVID-19 dose #1 given elsewhere Unspecified 11/20/2020 09:0 9:00 AM EST completed eCW1 ([facility]) COVID-19 dose #1 given elsewhere Unspecified 11/20/2020 09:0 9:00 AM EST completed eCW1 ([facility]) COVID-19 dose #1 given elsewhere Unspecified 11/20/2020 09:0 9:00 AM EST completed eCW1 ([facility]) COVID-19 dose #1 given elsewhere Unspecified 11/20/2020 09:0 9:00 AM EST completed eCW1 ([facility]) COVID-19 dose #1 given elsewhere Unspecified 11/20/2020 09:0 9:00 AM EST completed eCW1 ([facility]) COVID-19 dose #1 given elsewhere Unspecified 11/20/2020 09:0 9:00 AM EST completed eCW1 ([facility]) COVID-19 dose #1 given elsewhere Unspecified 11/20/2020 09:0 9:00 AM EST completed eCW1 ([facility]) COVID-19 dose #1 given elsewhere Unspecified 11/20/2020 09:0 9:00 AM EST completed eCW1 ([facility]) COVID-19 dose #1 given elsewhere Unspecified 11/20/2020 09:0 9:00 AM EST completed eCW1 ([facility]) COVID-19 dose #1 given elsewhere Unspecified 11/20/2020 09:0 9:00 AM EST completed eCW1 ([facility]) COVID-19 dose #1 given elsewhere Unspecified 11/20/2020 09:0 9:00 AM EST completed eCW1 ([facility]) COVID-19 dose #1 given elsewhere Unspecified 11/20/2020 09:0 9:00 AM EST completed eCW1 ([facility]) COVID-19 dose #1 given elsewhere Unspecified 11/20/2020 09:0 9:00 AM EST completed eCW1 ([facility]) COVID-19 dose #1 given elsewhere Unspecified 11/20/2020 09:0 9:00 AM EST completed eCW1 ([facility]) COVID-19 dose #1 given elsewhere Unspecified 11/20/2020 09:0 9:00 AM EST completed eCW1 ([facility]) COVID-19 dose #1 given elsewhere Unspecified 11/20/2020 09:0 9:00 AM EST completed eCW1 ([facility]) COVID-19 dose #1 given elsewhere Unspecified 11/20/2020 09:0 9:00 AM EST completed eCW1 ([facility]) COVID-19 dose #1 given elsewhere Unspecified 11/20/2020 09:0 9:00 AM EST completed eCW1 ([facility]) COVID-19 dose #1 given elsewhere Unspecified 11/20/2020 09:0 9:00 AM EST completed eCW1 ([facility]) COVID-19 dose #1 given elsewhere Unspecified 11/20/2020 09:0 9:00 AM EST completed eCW1 ([facility]) COVID-19 dose #1 given elsewhere Unspecified 11/20/2020 09:0 9:00 AM EST completed eCW1 ([facility]) COVID-19 dose #1 given elsewhere Unspecified 11/20/2020 09:0 9:00 AM EST completed eCW1 ([facility]) COVID-19 dose #1 given elsewhere Unspecified 11/20/2020 09:0 9:00 AM EST completed eCW1 ([facility]) COVID-19 dose #1 given elsewhere Unspecified 11/20/2020 09:0 9:00 AM EST completed eCW1 ([facility]) COVID-19 dose #1 given elsewhere Unspecified 11/20/2020 09:0 9:00 AM EST completed eCW1 ([facility]) COVID-19 dose #1 given elsewhere Unspecified 11/20/2020 09:0 9:00 AM EST completed eCW1 ([facility]) COVID-19 dose #1 given elsewhere Unspecified 11/20/2020 09:0 9:00 AM EST completed eCW1 ([facility]) COVID-19 dose #1 given elsewhere Unspecified 11/20/2020 09:0 9:00 AM EST completed eCW1 ([facility]) COVID-19 dose #1 given elsewhere Unspecified 11/20/2020 09:0 9:00 AM EST completed eCW1 ([facility]) COVID-19 dose #1 given elsewhere Unspecified 11/20/2020 09:0 9:00 AM EST completed eCW1 ([facility]) COVID-19 dose #1 given elsewhere Unspecified 11/20/2020 09:0 9:00 AM EST completed eCW1 ([facility]) COVID-19 dose #1 given elsewhere Unspecified 11/20/2020 09:0 9:00 AM EST completed eCW1 ([facility]) COVID-19(given elsewhere) Unspecified 11/20/2020 09:09:00 AM EST co mpleted eCW1 ([facility]) COVID-19 VACCINE Moderna 11/20/2020 12:00:00 AM EST completed [employer] Vaccine Series Complete: NOThis Data was Submitted to [facility] Via [employer]. Medications Medication Brand Name Start Date Product Form Dose Route Admi nistrative Instructions Pharmacy Instructions Status Indications Reaction Description Data Source(s) methenamine hippurate 1000 MG Oral Tablet Methenamine Hippurate 1 GM Methenamine Hippurate 1 GM 07/24/2021 12:00:00 AM EDT 1.0 {tablet} active Methenamine Hippurate 1 GM eCW1 ([facility]) methenamine hippurate 1000 MG Oral Tablet Methenamine Hippurate 1 GM Methenamine Hippurate 1 GM 07/24/2021 12:00:00 AM EDT 1.0 {tablet} active Methenamine Hippurate 1 GM eCW1 ([facility]) methenamine hippurate 1000 MG Oral Tablet Methenamine Hippurate 1 GM Methenamine Hippurate 1 GM 07/24/2021 12:00:00 AM EDT 1.0 {tablet} active Methenamine Hippurate 1 GM eCW1 ([facility]) May Have - UNK 06/05/2021 12:00:00 AM EDT active May Have - eCW1 ([facility]) May Have - UNK 06/05/2021 12:00:00 AM EDT active May Have - eCW1 ([facility]) May Have - UNK 06/05/2021 12:00:00 AM EDT active May Have - eCW1 ([facility]) May Have - UNK 06/05/2021 12:00:00 AM EDT active May Have - eCW1 ([facility]) May Have - UNK 06/05/2021 12:00:00 AM EDT active May Have - eCW1 ([facility]) Sulfamethoxazole 800 MG / Trimethoprim 1 60 MG Oral Tablet [Bactrim] Bactrim DS 800-160 MG Bactrim DS 800-160 MG 05/22/2021 12:00:00 AM EDT 1.0 {table t} active Bactrim DS 800-160 MG eCW1 ( [facility]) Sulfamethoxazole 800 MG / Trimethoprim 1 60 MG Oral Tablet [Bactrim] Bactrim DS 800-160 MG Bactrim DS 800-160 MG 05/22/2021 12:00:00 AM EDT 1.0 {table t} active Bactrim DS 800-160 MG eCW1 ( [facility]) Sulfamethoxazole 800 MG / Trimethoprim 1 60 MG Oral Tablet [Bactrim] Bactrim DS 800-160 MG Bactrim DS 800-160 MG 05/22/2021 12:00:00 AM EDT 1.0 {table t} active Bactrim DS 800-160 MG eCW1 ( [facility]) Sulfamethoxazole 800 MG / Trimethoprim 1 60 MG Oral Tablet [Bactrim] Bactrim DS 800-160 MG Bactrim DS 800-160 MG 05/22/2021 12:00:00 AM EDT 1.0 {table t} active Bactrim DS 800-160 MG eCW1 ( [facility]) Sulfamethoxazole 800 MG / Trimethoprim 1 60 MG Oral Tablet [Bactrim] Bactrim DS 800-160 MG Bactrim DS 800-160 MG 05/22/2021 12:00:00 AM EDT 1.0 {table t} active Bactrim DS 800-160 MG eCW1 ( [facility]) Sulfamethoxazole 800 MG / Trimethoprim 1 60 MG Oral Tablet [Bactrim] Bactrim DS 800-160 MG Bactrim DS 800-160 MG 05/22/2021 12:00:00 AM EDT 1.0 {table t} active Bactrim DS 800-160 MG eCW1 ( [facility]) Sulfamethoxazole 800 MG / Trimethoprim 1 60 MG Oral Tablet [Bactrim] Bactrim DS 800-160 MG Bactrim DS 800-160 MG 05/22/2021 12:00:00 AM EDT 1.0 {table t} suspended Bactrim DS 800-160 MG eCW1 ( [facility]) Sulfamethoxazole 800 MG / Trimethoprim 1 60 MG Oral Tablet [Bactrim] Bactrim DS 800-160 MG Bactrim DS 800-160 MG 05/22/2021 12:00:00 AM EDT 1.0 {table t} active Bactrim DS 800-160 MG eCW1 ( [facility]) Sulfamethoxazole 800 MG / Trimethoprim 1 60 MG Oral Tablet [Bactrim] Bactrim DS 800-160 MG Bactrim DS 800-160 MG 05/22/2021 12:00:00 AM EDT 1.0 {table t} suspended Bactrim DS 800-160 MG eCW1 ( [facility]) Sulfamethoxazole 800 MG / Trimethoprim 1 60 MG Oral Tablet [Bactrim] Bactrim DS 800-160 MG Bactrim DS 800-160 MG 05/22/2021 12:00:00 AM EDT 1.0 {table t} active Bactrim DS 800-160 MG eCW1 ( [facility]) Sulfamethoxazole 800 MG / Trimethoprim 1 60 MG Oral Tablet [Bactrim] Bactrim DS 800-160 MG Bactrim DS 800-160 MG 05/22/2021 12:00:00 AM EDT 1.0 {table t} suspended Bactrim DS 800-160 MG eCW1 ( [facility]) NITROFURANTOIN, MACROCRYSTALS 25 MG / Ni trofurantoin, Monohydrate 75 MG Oral Capsule [Macrobid] Macrobid 100 MG Macrobid 100 MG 05/19/2021 12:00:00 AM EDT active Macrobid 100 MG eCW1 ([facility]) NITROFURANTOIN, MACROCRYSTALS 25 MG / Ni trofurantoin, Monohydrate 75 MG Oral Capsule [Macrobid] Macrobid 100 MG Macrobid 100 MG 05/19/2021 12:00:00 AM EDT active Macrobid 100 MG eCW1 ([facility]) NITROFURANTOIN, MACROCRYSTALS 25 MG / Ni trofurantoin, Monohydrate 75 MG Oral Capsule [Macrobid] Macrobid 100 MG Macrobid 100 MG 05/19/2021 12:00:00 AM EDT active Macrobid 100 MG eCW1 ([facility]) NITROFURANTOIN, MACROCRYSTALS 25 MG / Ni trofurantoin, Monohydrate 75 MG Oral Capsule [Macrobid] Macrobid 100 MG Macrobid 100 MG 05/19/2021 12:00:00 AM EDT active Macrobid 100 MG eCW1 ([facility]) NITROFURANTOIN, MACROCRYSTALS 25 MG / Ni trofurantoin, Monohydrate 75 MG Oral Capsule [Macrobid] Macrobid 100 MG Macrobid 100 MG 05/19/2021 12:00:00 AM EDT active Macrobid 100 MG eCW1 ([facility]) NITROFURANTOIN, MACROCRYSTALS 25 MG / Ni trofurantoin, Monohydrate 75 MG Oral Capsule [Macrobid] Macrobid 100 MG Macrobid 100 MG 05/19/2021 12:00:00 AM EDT active Macrobid 100 MG eCW1 ([facility]) NITROFURANTOIN, MACROCRYSTALS 25 MG / Ni trofurantoin, Monohydrate 75 MG Oral Capsule [Macrobid] Macrobid 100 MG Macrobid 100 MG 05/19/2021 12:00:00 AM EDT active Macrobid 100 MG eCW1 ([facility]) NITROFURANTOIN, MACROCRYSTALS 25 MG / Ni trofurantoin, Monohydrate 75 MG Oral Capsule [Macrobid] Macrobid 100 MG Macrobid 100 MG 05/19/2021 12:00:00 AM EDT active Macrobid 100 MG eCW1 ([facility]) NITROFURANTOIN, MACROCRYSTALS 25 MG / Ni trofurantoin, Monohydrate 75 MG Oral Capsule [Macrobid] Macrobid 100 MG Macrobid 100 MG 05/19/2021 12:00:00 AM EDT active Macrobid 100 MG eCW1 ([facility]) 24 HR tolterodine tartrate 4 MG Extended Release Oral Capsule Tolterodine Tartrate ER 4 MG Tolterodine Tartrate ER 4 MG 04/27/2021 12:00:00 AM EDT 1.0 {capsule} active Tolterodine Tartrate E R 4 MG eCW1 ([facility]) 24 HR tolterodine tartrate 4 MG Extended Release Oral Capsule Tolterodine Tartrate ER 4 MG Tolterodine Tartrate ER 4 MG 04/27/2021 12:00:00 AM EDT 1.0 {capsule} active Tolterodine Tartrate E R 4 MG eCW1 ([facility]) 24 HR tolterodine tartrate 4 MG Extended Release Oral Capsule Tolterodine Tartrate ER 4 MG Tolterodine Tartrate ER 4 MG 04/27/2021 12:00:00 AM EDT 1.0 {capsule} active Tolterodine Tartrate E R 4 MG eCW1 ([facility]) 24 HR tolterodine tartrate 4 MG Extended Release Oral Capsule Tolterodine Tartrate ER 4 MG Tolterodine Tartrate ER 4 MG 04/27/2021 12:00:00 AM EDT 1.0 {capsule} active Tolterodine Tartrate E R 4 MG eCW1 ([facility]) 24 HR tolterodine tartrate 4 MG Extended Release Oral Capsule Tolterodine Tartrate ER 4 MG Tolterodine Tartrate ER 4 MG 04/27/2021 12:00:00 AM EDT 1.0 {capsule} active Tolterodine Tartrate E R 4 MG eCW1 ([facility]) 24 HR tolterodine tartrate 4 MG Extended Release Oral Capsule Tolterodine Tartrate ER 4 MG Tolterodine Tartrate ER 4 MG 04/27/2021 12:00:00 AM EDT 1.0 {capsule} active Tolterodine Tartrate E R 4 MG eCW1 ([facility]) 24 HR tolterodine tartrate 4 MG Extended Release Oral Capsule Tolterodine Tartrate ER 4 MG Tolterodine Tartrate ER 4 MG 04/27/2021 12:00:00 AM EDT 1.0 {capsule} active Tolterodine Tartrate E R 4 MG eCW1 ([facility]) 24 HR tolterodine tartrate 4 MG Extended Release Oral Capsule Tolterodine Tartrate ER 4 MG Tolterodine Tartrate ER 4 MG 04/27/2021 12:00:00 AM EDT 1.0 {capsule} active Tolterodine Tartrate E R 4 MG eCW1 ([facility]) ammonium lactate 120 MG/ML Topical Cream Ammonium Lactate 04/03/2021 12:00:00 AM EDT active MED[facility] ([facility] Amoxicillin 875 MG / Clavulanate 125 MG Oral Tablet Amoxicillin-Pot Clavulanate 875-125 MG Amoxicillin-Pot Clavulanate 875-125 MG 03/21/2021 12:00:00 AM ED T 1.0 {tablet} active Amoxicillin-Pot Cla vulanate 875-125 MG eCW1 ([facility]) Amoxicillin 875 MG / Clavulanate 125 MG Oral Tablet Amoxicillin-Pot Clavulanate 875-125 MG Amoxicillin-Pot Clavulanate 875-125 MG 03/21/2021 12:00:00 AM ED T 1.0 {tablet} active Amoxicillin-Pot Cla vulanate 875-125 MG eCW1 ([facility]) Prednisone 50 MG Oral Tablet predniSONE 50 MG predniSONE 50 MG 02/15/2021 12:00:00 AM EDT 1.0 {tablet} suspended predniSONE 50 MG eCW1 ([facility]) Diphenhydramine Hydrochloride 50 MG Oral Capsule diphe nhydrAMINE HCl 50 MG diphenhydrAMINE HCl 50 MG 02/15/2021 12:00:00 AM EDT 1.0 {capsule} active diphenhydrAMINE HCl 50 MG eCW1 ( [facility]) Diphenhydramine Hydrochloride 50 MG Oral Capsule Diphe nhydrAMINE HCl 50 MG DiphenhydrAMINE HCl 50 MG 02/15/2021 12:00:00 AM EDT 1.0 {capsule} active DiphenhydrAMINE HCl 50 MG eCW1 ( [facility]) Diphenhydramine Hydrochloride 50 MG Oral Capsule diphe nhydrAMINE HCl 50 MG diphenhydrAMINE HCl 50 MG 02/15/2021 12:00:00 AM EDT 1.0 {capsule} active diphenhydrAMINE HCl 50 MG eCW1 ( [facility]) Prednisone 50 MG Oral Tablet predniSONE 50 MG predniSONE 50 MG 02/15/2021 12:00:00 AM EDT 1.0 {tablet} suspended predniSONE 50 MG eCW1 ([facility]) Prednisone 50 MG Oral Tablet PredniSONE 50 MG PredniSONE 50 MG 02/15/2021 12:00:00 AM EDT 1.0 {tablet} suspended PredniSONE 50 MG eCW1 ([facility]) Diphenhydramine Hydrochloride 50 MG Oral Capsule diphe nhydrAMINE HCl 50 MG diphenhydrAMINE HCl 50 MG 02/15/2021 12:00:00 AM EDT 1.0 {capsule} active diphenhydrAMINE HCl 50 MG eCW1 ( [facility]) Diphenhydramine Hydrochloride 50 MG Oral Capsule Diphe nhydrAMINE HCl 50 MG DiphenhydrAMINE HCl 50 MG 02/15/2021 12:00:00 AM EDT 1.0 {capsule} active DiphenhydrAMINE HCl 50 MG eCW1 ( [facility]) Diphenhydramine Hydrochloride 50 MG Oral Capsule diphe nhydrAMINE HCl 50 MG diphenhydrAMINE HCl 50 MG 02/15/2021 12:00:00 AM EDT 1.0 {capsule} active diphenhydrAMINE HCl 50 MG eCW1 ( [facility]) Diphenhydramine Hydrochloride 50 MG Oral Capsule diphe nhydrAMINE HCl 50 MG diphenhydrAMINE HCl 50 MG 02/15/2021 12:00:00 AM EDT 1.0 {capsule} active diphenhydrAMINE HCl 50 MG eCW1 ( [facility]) Prednisone 50 MG Oral Tablet predniSONE 50 MG predniSONE 50 MG 02/15/2021 12:00:00 AM EDT 1.0 {tablet} suspended predniSONE 50 MG eCW1 ([facility]) Diphenhydramine Hydrochloride 50 MG Oral Capsule Diphe nhydrAMINE HCl 50 MG DiphenhydrAMINE HCl 50 MG 02/15/2021 12:00:00 AM EDT 1.0 {capsule} active DiphenhydrAMINE HCl 50 MG eCW1 ( [facility]) Diphenhydramine Hydrochloride 50 MG Oral Capsule diphe nhydrAMINE HCl 50 MG diphenhydrAMINE HCl 50 MG 02/15/2021 12:00:00 AM EDT 1.0 {capsule} active diphenhydrAMINE HCl 50 MG eCW1 ( [facility]) Prednisone 50 MG Oral Tablet predniSONE 50 MG predniSONE 50 MG 02/15/2021 12:00:00 AM EDT 1.0 {tablet} suspended predniSONE 50 MG eCW1 ([facility]) Prednisone 50 MG Oral Tablet predniSONE 50 MG predniSONE 50 MG 02/15/2021 12:00:00 AM EDT 1.0 {tablet} suspended predniSONE 50 MG eCW1 ([facility]) Prednisone 50 MG Oral Tablet predniSONE 50 MG predniSONE 50 MG 02/15/2021 12:00:00 AM EDT 1.0 {tablet} suspended predniSONE 50 MG eCW1 ([facility]) Diphenhydramine Hydrochloride 50 MG Oral Capsule diphe nhydrAMINE HCl 50 MG diphenhydrAMINE HCl 50 MG 02/15/2021 12:00:00 AM EDT 1.0 {capsule} active diphenhydrAMINE HCl 50 MG eCW1 ( [facility]) Prednisone 50 MG Oral Tablet predniSONE 50 MG predniSONE 50 MG 02/15/2021 12:00:00 AM EDT 1.0 {tablet} suspended predniSONE 50 MG eCW1 ([facility]) Prednisone 50 MG Oral Tablet predniSONE 50 MG predniSONE 50 MG 02/15/2021 12:00:00 AM EDT 1.0 {tablet} suspended predniSONE 50 MG eCW1 ([facility]) Diphenhydramine Hydrochloride 50 MG Oral Capsule diphe nhydrAMINE HCl 50 MG diphenhydrAMINE HCl 50 MG 02/15/2021 12:00:00 AM EDT 1.0 {capsule} active diphenhydrAMINE HCl 50 MG eCW1 ( [facility]) Prednisone 50 MG Oral Tablet PredniSONE 50 MG PredniSONE 50 MG 02/15/2021 12:00:00 AM EDT 1.0 {tablet} suspended PredniSONE 50 MG eCW1 ([facility]) Diphenhydramine Hydrochloride 50 MG Oral Capsule Diphe nhydrAMINE HCl 50 MG DiphenhydrAMINE HCl 50 MG 02/15/2021 12:00:00 AM EDT 1.0 {capsule} active DiphenhydrAMINE HCl 50 MG eCW1 ( [facility]) Prednisone 50 MG Oral Tablet PredniSONE 50 MG PredniSONE 50 MG 02/15/2021 12:00:00 AM EDT 1.0 {tablet} suspended PredniSONE 50 MG eCW1 ([facility]) Diphenhydramine Hydrochloride 50 MG Oral Capsule diphe nhydrAMINE HCl 50 MG diphenhydrAMINE HCl 50 MG 02/15/2021 12:00:00 AM EDT 1.0 {capsule} active diphenhydrAMINE HCl 50 MG eCW1 ( [facility]) Prednisone 50 MG Oral Tablet PredniSONE 50 MG PredniSONE 50 MG 02/15/2021 12:00:00 AM EDT 1.0 {tablet} active Pr edniSONE 50 MG eCW1 ([facility]) Prednisone 50 MG Oral Tablet predniSONE 50 MG predniSONE 50 MG 02/15/2021 12:00:00 AM EDT 1.0 {tablet} suspended predniSONE 50 MG eCW1 ([facility]) Diphenhydramine Hydrochloride 50 MG Oral Capsule diphe nhydrAMINE HCl 50 MG diphenhydrAMINE HCl 50 MG 02/15/2021 12:00:00 AM EDT 1.0 {capsule} active diphenhydrAMINE HCl 50 MG eCW1 ( [facility]) Prednisone 50 MG Oral Tablet predniSONE 50 MG predniSONE 50 MG 02/15/2021 12:00:00 AM EDT 1.0 {tablet} suspended predniSONE 50 MG eCW1 ([facility]) Diphenhydramine Hydrochloride 50 MG Oral Capsule diphe nhydrAMINE HCl 50 MG diphenhydrAMINE HCl 50 MG 02/15/2021 12:00:00 AM EDT 1.0 {capsule} active diphenhydrAMINE HCl 50 MG eCW1 ( [facility]) Prednisone 50 MG Oral Tablet predniSONE 50 MG predniSONE 50 MG 02/15/2021 12:00:00 AM EDT 1.0 {tablet} suspended predniSONE 50 MG eCW1 ([facility]) Prednisone 50 MG Oral Tablet predniSONE 50 MG predniSONE 50 MG 02/15/2021 12:00:00 AM EDT 1.0 {tablet} suspended predniSONE 50 MG eCW1 ([facility]) Prednisone 50 MG Oral Tablet predniSONE 50 MG predniSONE 50 MG 02/15/2021 12:00:00 AM EDT 1.0 {tablet} suspended predniSONE 50 MG eCW1 ([facility]) Prednisone 50 MG Oral Tablet predniSONE 50 MG predniSONE 50 MG 02/15/2021 12:00:00 AM EDT 1.0 {tablet} suspended predniSONE 50 MG eCW1 ([facility]) Diphenhydramine Hydrochloride 50 MG Oral Capsule diphe nhydrAMINE HCl 50 MG diphenhydrAMINE HCl 50 MG 02/15/2021 12:00:00 AM EDT 1.0 {capsule} active diphenhydrAMINE HCl 50 MG eCW1 ( [facility]) Diphenhydramine Hydrochloride 50 MG Oral Capsule Diphe nhydrAMINE HCl 50 MG DiphenhydrAMINE HCl 50 MG 02/15/2021 12:00:00 AM EDT 1.0 {capsule} active DiphenhydrAMINE HCl 50 MG eCW1 ( [facility]) Diphenhydramine Hydrochloride 50 MG Oral Capsule diphe nhydrAMINE HCl 50 MG diphenhydrAMINE HCl 50 MG 02/15/2021 12:00:00 AM EDT 1.0 {capsule} active diphenhydrAMINE HCl 50 MG eCW1 ( [facility]) Prednisone 50 MG Oral Tablet PredniSONE 50 MG PredniSONE 50 MG 02/15/2021 12:00:00 AM EDT 1.0 {tablet} suspended PredniSONE 50 MG eCW1 ([facility]) Diphenhydramine Hydrochloride 50 MG Oral Capsule diphe nhydrAMINE HCl 50 MG diphenhydrAMINE HCl 50 MG 02/15/2021 12:00:00 AM EDT 1.0 {capsule} active diphenhydrAMINE HCl 50 MG eCW1 ( [facility]) Prednisone 50 MG Oral Tablet predniSONE 50 MG predniSONE 50 MG 02/15/2021 12:00:00 AM EDT 1.0 {tablet} suspended predniSONE 50 MG eCW1 ([facility]) Diphenhydramine Hydrochloride 50 MG Oral Capsule diphe nhydrAMINE HCl 50 MG diphenhydrAMINE HCl 50 MG 02/15/2021 12:00:00 AM EDT 1.0 {capsule} active diphenhydrAMINE HCl 50 MG eCW1 ( [facility]) Prednisone 50 MG Oral Tablet PredniSONE 50 MG PredniSONE 50 MG 02/15/2021 12:00:00 AM EDT 1.0 {tablet} suspended PredniSONE 50 MG eCW1 ([facility]) Diphenhydramine Hydrochloride 50 MG Oral Capsule diphe nhydrAMINE HCl 50 MG diphenhydrAMINE HCl 50 MG 02/15/2021 12:00:00 AM EDT 1.0 {capsule} active diphenhydrAMINE HCl 50 MG eCW1 ( [facility]) Prednisone 50 MG Oral Tablet predniSONE 50 MG predniSONE 50 MG 02/15/2021 12:00:00 AM EDT 1.0 {tablet} suspended predniSONE 50 MG eCW1 ([facility]) Diphenhydramine Hydrochloride 50 MG Oral Capsule Diphe nhydrAMINE HCl 50 MG DiphenhydrAMINE HCl 50 MG 02/15/2021 12:00:00 AM EDT 1.0 {capsule} active DiphenhydrAMINE HCl 50 MG eCW1 ( [facility]) Myrbetriq 50 MG UNK 02/06/2021 12:00:00 AM EDT 1.0 {tablet} suspended Myrbetriq 50 MG eCW1 ([facility]) Myrbetriq 50 MG UNK 02/06/2021 12:00:00 AM EDT 1.0 {tablet} suspended Myrbetriq 50 MG eCW1 ([facility]) Myrbetriq 50 MG UNK 02/06/2021 12:00:00 AM EDT 1.0 {tablet} suspended Myrbetriq 50 MG eCW1 ([facility]) Myrbetriq 50 MG UNK 02/06/2021 12:00:00 AM EDT 1.0 {tablet} suspended Myrbetriq 50 MG eCW1 ([facility]) Myrbetriq 50 MG UNK 02/06/2021 12:00:00 AM EDT 1.0 {tablet} suspended Myrbetriq 50 MG eCW1 ([facility]) Myrbetriq 50 MG UNK 02/06/2021 12:00:00 AM EDT 1.0 {tablet} suspended Myrbetriq 50 MG eCW1 ([facility]) Myrbetriq 50 MG UNK 02/06/2021 12:00:00 AM EDT 1.0 {tablet} suspended Myrbetriq 50 MG eCW1 ([facility]) Myrbetriq 50 MG UNK 02/06/2021 12:00:00 AM EDT 1.0 {tablet} active Myrbetriq 50 MG eCW1 ([facility]) Myrbetriq 50 MG UNK 02/06/2021 12:00:00 AM EDT 1.0 {tablet} active Myrbetriq 50 MG eCW1 ([facility]) Myrbetriq 50 MG UNK 02/06/2021 12:00:00 AM EDT 1.0 {tablet} suspended Myrbetriq 50 MG eCW1 ([facility]) Myrbetriq 50 MG UNK 02/06/2021 12:00:00 AM EDT 1.0 {tablet} suspended Myrbetriq 50 MG eCW1 ([facility]) Myrbetriq 50 MG UNK 02/06/2021 12:00:00 AM EDT 1.0 {tablet} suspended Myrbetriq 50 MG eCW1 ([facility]) Myrbetriq 50 MG UNK 02/06/2021 12:00:00 AM EDT 1.0 {tablet} suspended Myrbetriq 50 MG eCW1 ([facility]) Myrbetriq 50 MG UNK 02/06/2021 12:00:00 AM EDT 1.0 {tablet} suspended Myrbetriq 50 MG eCW1 ([facility]) Myrbetriq 50 MG UNK 02/06/2021 12:00:00 AM EDT 1.0 {tablet} active Myrbetriq 50 MG eCW1 ([facility]) Myrbetriq 50 MG UNK 02/06/2021 12:00:00 AM EDT 1.0 {tablet} suspended Myrbetriq 50 MG eCW1 ([facility]) Myrbetriq 50 MG UNK 02/06/2021 12:00:00 AM EDT 1.0 {tablet} suspended Myrbetriq 50 MG eCW1 ([facility]) Myrbetriq 50 MG UNK 02/06/2021 12:00:00 AM EDT 1.0 {tablet} active Myrbetriq 50 MG eCW1 ([facility]) Myrbetriq 50 MG UNK 02/06/2021 12:00:00 AM EDT 1.0 {tablet} suspended Myrbetriq 50 MG eCW1 ([facility]) Myrbetriq 50 MG UNK 02/06/2021 12:00:00 AM EDT 1.0 {tablet} suspended Myrbetriq 50 MG eCW1 ([facility]) Myrbetriq 50 MG UNK 02/06/2021 12:00:00 AM EDT 1.0 {tablet} suspended Myrbetriq 50 MG eCW1 ([facility]) Myrbetriq 50 MG UNK 02/06/2021 12:00:00 AM EDT 1.0 {tablet} suspended Myrbetriq 50 MG eCW1 ([facility]) Myrbetriq 50 MG UNK 02/06/2021 12:00:00 AM EDT 1.0 {tablet} suspended Myrbetriq 50 MG eCW1 ([facility]) Myrbetriq 50 MG UNK 02/06/2021 12:00:00 AM EDT 1.0 {tablet} suspended Myrbetriq 50 MG eCW1 ([facility]) Myrbetriq 50 MG UNK 02/06/2021 12:00:00 AM EDT 1.0 {tablet} suspended Myrbetriq 50 MG eCW1 ([facility]) 24 HR Oxybutynin chloride 15 MG Extended Release Oral Tablet Oxybutynin Chloride ER 15 MG Oxybutynin Chloride ER 15 MG 12/22/2020 12:00:00 AM EST 1.0 {tablet} suspended Oxybutynin Chloride ER 15 MG eCW1 ([facility]) 24 HR Oxybutynin chloride 15 MG Extended Release Oral Tablet Oxybutynin Chloride ER 15 MG Oxybutynin Chloride ER 15 MG 12/22/2020 12:00:00 AM EST 1.0 {tablet} suspended Oxybutynin Chloride ER 15 MG eCW1 ([facility]) 24 HR Oxybutynin chloride 15 MG Extended Release Oral Tablet Oxybutynin Chloride ER 15 MG Oxybutynin Chloride ER 15 MG 12/22/2020 12:00:00 AM EST 1.0 {tablet} suspended Oxybutynin Chloride ER 15 MG eCW1 ([facility]) 24 HR Oxybutynin chloride 15 MG Extended Release Oral Tablet Oxybutynin Chloride ER 15 MG Oxybutynin Chloride ER 15 MG 12/22/2020 12:00:00 AM EST 1.0 {tablet} suspended Oxybutynin Chloride ER 15 MG eCW1 ([facility]) 24 HR Oxybutynin chloride 15 MG Extended Release Oral Tablet Oxybutynin Chloride ER 15 MG Oxybutynin Chloride ER 15 MG 12/22/2020 12:00:00 AM EST 1.0 {tablet} suspended Oxybutynin Chloride ER 15 MG eCW1 ([facility]) 24 HR Oxybutynin chloride 15 MG Extended Release Oral Tablet Oxybutynin Chloride ER 15 MG Oxybutynin Chloride ER 15 MG 12/22/2020 12:00:00 AM EST 1.0 {tablet} active Oxybutynin Chloride ER 1 5 MG eCW1 ([facility]) 24 HR Oxybutynin chloride 15 MG Extended Release Oral Tablet Oxybutynin Chloride ER 15 MG Oxybutynin Chloride ER 15 MG 12/22/2020 12:00:00 AM EST 1.0 {tablet} suspended Oxybutynin Chloride ER 15 MG eCW1 ([facility]) 24 HR Oxybutynin chloride 15 MG Extended Release Oral Tablet Oxybutynin Chloride ER 15 MG Oxybutynin Chloride ER 15 MG 12/22/2020 12:00:00 AM EST 1.0 {tablet} suspended Oxybutynin Chloride ER 15 MG eCW1 ([facility]) 24 HR Oxybutynin chloride 15 MG Extended Release Oral Tablet Oxybutynin Chloride ER 15 MG Oxybutynin Chloride ER 15 MG 12/22/2020 12:00:00 AM EST 1.0 {tablet} suspended Oxybutynin Chloride ER 15 MG eCW1 ([facility]) 24 HR Oxybutynin chloride 15 MG Extended Release Oral Tablet Oxybutynin Chloride ER 15 MG Oxybutynin Chloride ER 15 MG 12/22/2020 12:00:00 AM EST 1.0 {tablet} suspended Oxybutynin Chloride ER 15 MG eCW1 ([facility]) 24 HR Oxybutynin chloride 15 MG Extended Release Oral Tablet Oxybutynin Chloride ER 15 MG Oxybutynin Chloride ER 15 MG 12/22/2020 12:00:00 AM EST 1.0 {tablet} active Oxybutynin Chloride ER 1 5 MG eCW1 ([facility]) 24 HR Oxybutynin chloride 15 MG Extended Release Oral Tablet Oxybutynin Chloride ER 15 MG Oxybutynin Chloride ER 15 MG 12/22/2020 12:00:00 AM EST 1.0 {tablet} suspended Oxybutynin Chloride ER 15 MG eCW1 ([facility]) 24 HR Oxybutynin chloride 15 MG Extended Release Oral Tablet Oxybutynin Chloride ER 15 MG Oxybutynin Chloride ER 15 MG 12/22/2020 12:00:00 AM EST 1.0 {tablet} suspended Oxybutynin Chloride ER 15 MG eCW1 ([facility]) 24 HR Oxybutynin chloride 15 MG Extended Release Oral Tablet Oxybutynin Chloride ER 15 MG Oxybutynin Chloride ER 15 MG 12/22/2020 12:00:00 AM EST 1.0 {tablet} suspended Oxybutynin Chloride ER 15 MG eCW1 ([facility]) 24 HR Oxybutynin chloride 15 MG Extended Release Oral Tablet Oxybutynin Chloride ER 15 MG Oxybutynin Chloride ER 15 MG 12/22/2020 12:00:00 AM EST 1.0 {tablet} suspended Oxybutynin Chloride ER 15 MG eCW1 ([facility]) 24 HR Oxybutynin chloride 15 MG Extended Release Oral Tablet Oxybutynin Chloride ER 15 MG Oxybutynin Chloride ER 15 MG 12/22/2020 12:00:00 AM EST 1.0 {tablet} suspended Oxybutynin Chloride ER 15 MG eCW1 ([facility]) 24 HR Oxybutynin chloride 15 MG Extended Release Oral Tablet Oxybutynin Chloride ER 15 MG Oxybutynin Chloride ER 15 MG 12/22/2020 12:00:00 AM EST 1.0 {tablet} suspended Oxybutynin Chloride ER 15 MG eCW1 ([facility]) 24 HR Oxybutynin chloride 15 MG Extended Release Oral Tablet Oxybutynin Chloride ER 15 MG Oxybutynin Chloride ER 15 MG 12/22/2020 12:00:00 AM EST 1.0 {tablet} suspended Oxybutynin Chloride ER 15 MG eCW1 ([facility]) 24 HR Oxybutynin chloride 15 MG Extended Release Oral Tablet Oxybutynin Chloride ER 15 MG Oxybutynin Chloride ER 15 MG 12/22/2020 12:00:00 AM EST 1.0 {tablet} suspended Oxybutynin Chloride ER 15 MG eCW1 ([facility]) 24 HR Oxybutynin chloride 15 MG Extended Release Oral Tablet Oxybutynin Chloride ER 15 MG Oxybutynin Chloride ER 15 MG 12/22/2020 12:00:00 AM EST 1.0 {tablet} suspended Oxybutynin Chloride ER 15 MG eCW1 ([facility]) 24 HR Oxybutynin chloride 15 MG Extended Release Oral Tablet Oxybutynin Chloride ER 15 MG Oxybutynin Chloride ER 15 MG 12/22/2020 12:00:00 AM EST 1.0 {tablet} active Oxybutynin Chloride ER 1 5 MG eCW1 ([facility]) 24 HR Oxybutynin chloride 15 MG Extended Release Oral Tablet Oxybutynin Chloride ER 15 MG Oxybutynin Chloride ER 15 MG 12/22/2020 12:00:00 AM EST 1.0 {tablet} suspended Oxybutynin Chloride ER 15 MG eCW1 ([facility]) 24 HR Oxybutynin chloride 15 MG Extended Release Oral Tablet Oxybutynin Chloride ER 15 MG Oxybutynin Chloride ER 15 MG 12/22/2020 12:00:00 AM EST 1.0 {tablet} suspended Oxybutynin Chloride ER 15 MG eCW1 ([facility]) 24 HR Oxybutynin chloride 15 MG Extended Release Oral Tablet Oxybutynin Chloride ER 15 MG Oxybutynin Chloride ER 15 MG 12/22/2020 12:00:00 AM EST 1.0 {tablet} suspended Oxybutynin Chloride ER 15 MG eCW1 ([facility]) 24 HR Oxybutynin chloride 15 MG Extended Release Oral Tablet Oxybutynin Chloride ER 15 MG Oxybutynin Chloride ER 15 MG 12/22/2020 12:00:00 AM EST 1.0 {tablet} suspended Oxybutynin Chloride ER 15 MG eCW1 ([facility]) 24 HR Oxybutynin chloride 15 MG Extended Release Oral Tablet Oxybutynin Chloride ER 15 MG Oxybutynin Chloride ER 15 MG 12/22/2020 12:00:00 AM EST 1.0 {tablet} active Oxybutynin Chloride ER 1 5 MG eCW1 ([facility]) 24 HR Oxybutynin chloride 15 MG Extended Release Oral Tablet Oxybutynin Chloride ER 15 MG Oxybutynin Chloride ER 15 MG 12/22/2020 12:00:00 AM EST 1.0 {tablet} suspended Oxybutynin Chloride ER 15 MG eCW1 ([facility]) 24 HR Oxybutynin chloride 15 MG Extended Release Oral Tablet Oxybutynin Chloride ER 15 MG Oxybutynin Chloride ER 15 MG 12/22/2020 12:00:00 AM EST 1.0 {tablet} suspended Oxybutynin Chloride ER 15 MG eCW1 ([facility]) 24 HR Oxybutynin chloride 15 MG Extended Release Oral Tablet Oxybutynin Chloride ER 15 MG Oxybutynin Chloride ER 15 MG 12/22/2020 12:00:00 AM EST 1.0 {tablet} suspended Oxybutynin Chloride ER 15 MG eCW1 ([facility]) 3 ML Insulin Lispro 100 UNT/ML Pen Injec tor [Humalog] HumaLOG KwikPen 100 UNIT/ML HumaLOG KwikPen 100 UNIT/ML 11/22/2020 12:00:00 AM EST suspended HumaLOG KwikPen 100 UNIT/ML eCW1 ([facility]) 3 ML Insulin Lispro 100 UNT/ML Pen Injec tor [Humalog] Humalog KwikPen 100 UNIT/ML Humalog KwikPen 100 UNIT/ML 11/22/2020 12:00:00 AM EST suspended Humalog KwikPen 100 UNIT/ML eCW1 ([facility]) 3 ML Insulin Lispro 100 UNT/ML Pen Injec tor [Humalog] HumaLOG KwikPen 100 UNIT/ML HumaLOG KwikPen 100 UNIT/ML 11/22/2020 12:00:00 AM EST suspended HumaLOG KwikPen 100 UNIT/ML eCW1 ([facility]) 3 ML Insulin Lispro 100 UNT/ML Pen Injec tor [Humalog] Humalog KwikPen 100 UNIT/ML Humalog KwikPen 100 UNIT/ML 11/22/2020 12:00:00 AM EST suspended Humalog KwikPen 100 UNIT/ML eCW1 ([facility]) 3 ML Insulin Lispro 100 UNT/ML Pen Injec tor [Humalog] HumaLOG KwikPen 100 UNIT/ML HumaLOG KwikPen 100 UNIT/ML 11/22/2020 12:00:00 AM EST suspended HumaLOG KwikPen 100 UNIT/ML eCW1 ([facility]) 3 ML Insulin Lispro 100 UNT/ML Pen Injec tor [Humalog] Humalog KwikPen 100 UNIT/ML Humalog KwikPen 100 UNIT/ML 11/22/2020 12:00:00 AM EST suspended Humalog KwikPen 100 UNIT/ML eCW1 ([facility]) 3 ML Insulin Lispro 100 UNT/ML Pen Injec tor [Humalog] HumaLOG KwikPen 100 UNIT/ML HumaLOG KwikPen 100 UNIT/ML 11/22/2020 12:00:00 AM EST suspended HumaLOG KwikPen 100 UNIT/ML eCW1 ([facility]) 3 ML Insulin Lispro 100 UNT/ML Pen Injec tor [Humalog] HumaLOG KwikPen 100 UNIT/ML HumaLOG KwikPen 100 UNIT/ML 11/22/2020 12:00:00 AM EST suspended HumaLOG KwikPen 100 UNIT/ML eCW1 ([facility]) 3 ML Insulin Lispro 100 UNT/ML Pen Injec tor [Humalog] HumaLOG KwikPen 100 UNIT/ML HumaLOG KwikPen 100 UNIT/ML 11/22/2020 12:00:00 AM EST suspended HumaLOG KwikPen 100 UNIT/ML eCW1 ([facility]) 3 ML Insulin Lispro 100 UNT/ML Pen Injec tor [Humalog] Humalog KwikPen 100 UNIT/ML Humalog KwikPen 100 UNIT/ML 11/22/2020 12:00:00 AM EST active Humalog KwikPen 100 UNIT/ML eCW1 ([facility]) 3 ML Insulin Lispro 100 UNT/ML Pen Injec tor [Humalog] HumaLOG KwikPen 100 UNIT/ML HumaLOG KwikPen 100 UNIT/ML 11/22/2020 12:00:00 AM EST suspended HumaLOG KwikPen 100 UNIT/ML eCW1 (Formerly [facility]) 3 ML Insulin Lispro 100 UNT/ML Pen Injec tor [Humalog] HumaLOG KwikPen 100 UNIT/ML HumaLOG KwikPen 100 UNIT/ML 11/22/2020 12:00:00 AM EST suspended HumaLOG KwikPen 100 UNIT/ML eCW1 (Formerly [facility]) 3 ML Insulin Lispro 100 UNT/ML Pen Injec tor [Humalog] Humalog KwikPen 100 UNIT/ML Humalog KwikPen 100 UNIT/ML 11/22/2020 12:00:00 AM EST active Humalog KwikPen 100 UNIT/ML eCW1 ([facility]) 3 ML Insulin Lispro 100 UNT/ML Pen Injec tor [Humalog] HumaLOG KwikPen 100 UNIT/ML HumaLOG KwikPen 100 UNIT/ML 11/22/2020 12:00:00 AM EST suspended HumaLOG KwikPen 100 UNIT/ML eCW1 (Formerly [facility]) 3 ML Insulin Lispro 100 UNT/ML Pen Injec tor [Humalog] Humalog KwikPen 100 UNIT/ML Humalog KwikPen 100 UNIT/ML 11/22/2020 12:00:00 AM EST suspended Humalog KwikPen 100 UNIT/ML eCW1 (Formerly [facility]) 3 ML Insulin Lispro 100 UNT/ML Pen Injec tor [Humalog] HumaLOG KwikPen 100 UNIT/ML HumaLOG KwikPen 100 UNIT/ML 11/22/2020 12:00:00 AM EST suspended HumaLOG KwikPen 100 UNIT/ML eCW1 (Formerly [facility]) 3 ML Insulin Lispro 100 UNT/ML Pen Injec tor [Humalog] HumaLOG KwikPen 100 UNIT/ML HumaLOG KwikPen 100 UNIT/ML 11/22/2020 12:00:00 AM EST suspended HumaLOG KwikPen 100 UNIT/ML eCW1 (Formerly [facility]) 3 ML Insulin Lispro 100 UNT/ML Pen Injec tor [Humalog] HumaLOG KwikPen 100 UNIT/ML HumaLOG KwikPen 100 UNIT/ML 11/22/2020 12:00:00 AM EST suspended HumaLOG KwikPen 100 UNIT/ML eCW1 (Formerly [facility]) 3 ML Insulin Lispro 100 UNT/ML Pen Injec tor [Humalog] Humalog KwikPen 100 UNIT/ML Humalog KwikPen 100 UNIT/ML 11/22/2020 12:00:00 AM EST suspended Humalog KwikPen 100 UNIT/ML eCW1 (Formerly [facility]) 3 ML Insulin Lispro 100 UNT/ML Pen Injec tor [Humalog] Humalog KwikPen 100 UNIT/ML Humalog KwikPen 100 UNIT/ML 11/22/2020 12:00:00 AM EST suspended Humalog KwikPen 100 UNIT/ML eCW1 (Formerly [facility]) 3 ML Insulin Lispro 100 UNT/ML Pen Injec tor [Humalog] HumaLOG KwikPen 100 UNIT/ML HumaLOG KwikPen 100 UNIT/ML 11/22/2020 12:00:00 AM EST suspended HumaLOG KwikPen 100 UNIT/ML eCW1 (Formerly [facility]) 3 ML Insulin Lispro 100 UNT/ML Pen Injec tor [Humalog] Humalog KwikPen 100 UNIT/ML Humalog KwikPen 100 UNIT/ML 11/22/2020 12:00:00 AM EST suspended Humalog KwikPen 100 UNIT/ML eCW1 (Formerly [facility]) 3 ML Insulin Lispro 100 UNT/ML Pen Injec tor [Humalog] Humalog KwikPen 100 UNIT/ML Humalog KwikPen 100 UNIT/ML 11/22/2020 12:00:00 AM EST suspended Humalog KwikPen 100 UNIT/ML eCW1 (Formerly [facility]) 3 ML Insulin Lispro 100 UNT/ML Pen Injec tor [Humalog] HumaLOG KwikPen 100 UNIT/ML HumaLOG KwikPen 100 UNIT/ML 11/22/2020 12:00:00 AM EST suspended HumaLOG KwikPen 100 UNIT/ML eCW1 (Formerly [facility]) 3 ML Insulin Lispro 100 UNT/ML Pen Injec tor [Humalog] Humalog KwikPen 100 UNIT/ML Humalog KwikPen 100 UNIT/ML 11/22/2020 12:00:00 AM EST active Humalog KwikPen 100 UNIT/ML eCW1 ([facility]) 3 ML Insulin Lispro 100 UNT/ML Pen Injec tor [Humalog] Humalog KwikPen 100 UNIT/ML Humalog KwikPen 100 UNIT/ML 11/22/2020 12:00:00 AM EST suspended Humalog KwikPen 100 UNIT/ML eCW1 (Formerly [facility]) 3 ML Insulin Lispro 100 UNT/ML Pen Injec tor [Humalog] HumaLOG KwikPen 100 UNIT/ML HumaLOG KwikPen 100 UNIT/ML 11/22/2020 12:00:00 AM EST suspended HumaLOG KwikPen 100 UNIT/ML eCW1 (Formerly [facility]) 3 ML Insulin Lispro 100 UNT/ML Pen Injec tor [Humalog] Humalog KwikPen 100 UNIT/ML Humalog KwikPen 100 UNIT/ML 11/22/2020 12:00:00 AM EST suspended Humalog KwikPen 100 UNIT/ML eCW1 (Formerly [facility]) 3 ML Insulin Lispro 100 UNT/ML Pen Injec tor [Humalog] HumaLOG KwikPen 100 UNIT/ML HumaLOG KwikPen 100 UNIT/ML 11/22/2020 12:00:00 AM EST suspended HumaLOG KwikPen 100 UNIT/ML eCW1 (Formerly [facility]) 3 ML Insulin Lispro 100 UNT/ML Pen Injec tor [Humalog] Humalog KwikPen 100 UNIT/ML Humalog KwikPen 100 UNIT/ML 11/22/2020 12:00:00 AM EST active Humalog KwikPen 100 UNIT/ML eCW1 ([facility]) atorvastatin 10 MG Oral Tablet ATORVASTATIN CALCIUM 10/23/2020 1 2:00:00 AM EST tablet 90 TAKE ONE TABLET BY MOUTH EVERY D AY TAKE ONE TABLET BY MOUTH EVERY DAY SOLD: 10/23/2020 Karina Dasilva s [facility] Adult Brief 32"-44" - Simplicity Adult Brief 32"- 44" - 10/18/2020 12:00:00 AM EST suspended Simpl icity Adult Brief 32"-44" - eCW1 (Formerly [facility]) Simplicity Adult Brief 32"-44" - Simplicity Adult Brief 32"- 44" - 10/18/2020 12:00:00 AM EST suspended Simpl icity Adult Brief 32"-44" - eCW1 (Formerly [facility]) Simplicity Adult Brief 32"-44" - Simplicity Adult Brief 32"- 44" - 10/18/2020 12:00:00 AM EST suspended Simpl icity Adult Brief 32"-44" - eCW1 (Formerly [facility]) Simplicity Adult Brief 32"-44" - Simplicity Adult Brief 32"- 44" - 10/18/2020 12:00:00 AM EST suspended Simpl icity Adult Brief 32"-44" - eCW1 (Formerly [facility]) Simplicity Adult Brief 32"-44" - Simplicity Adult Brief 32"- 44" - 10/18/2020 12:00:00 AM EST active Simplici ty Adult Brief 32"-44" - eCW1 (Formerly [facility]) Simplicity Adult Brief 32"-44" - Simplicity Adult Brief 32"- 44" - 10/18/2020 12:00:00 AM EST suspended Simpl icity Adult Brief 32"-44" - eCW1 (Formerly [facility]) Simplicity Adult Brief 32"-44" - Simplicity Adult Brief 32"- 44" - 10/18/2020 12:00:00 AM EST suspended Simpl icity Adult Brief 32"-44" - eCW1 (Formerly [facility]) Simplicity Adult Brief 32"-44" - Simplicity Adult Brief 32"- 44" - 10/18/2020 12:00:00 AM EST active Simplici ty Adult Brief 32"-44" - eCW1 (Formerly [facility]) Simplicity Adult Brief 32"-44" - [facility]plicity Adult Brief 32"- 44" - 10/18/2020 12:00:00 AM EST suspended Simpl icity Adult Brief 32"-44" - eCW1 (Formerly [facility]) Simplicity Adult Brief 32"-44" - [facility]plicity Adult Brief 32"- 44" - 10/18/2020 12:00:00 AM EST active Simplici ty Adult Brief 32"-44" - eCW1 (Formerly [facility]) Simplicity Adult Brief 32"-44" - Simplicity Adult Brief 32"- 44" - 10/18/2020 12:00:00 AM EST suspended Simpl icity Adult Brief 32"-44" - eCW1 (Formerly [facility]) Simplicity Adult Brief 32"-44" - Simplicity Adult Brief 32"- 44" - 10/18/2020 12:00:00 AM EST suspended Simpl icity Adult Brief 32"-44" - eCW1 (Formerly [facility]) Simplicity Adult Brief 32"-44" - Simplicity Adult Brief 32"- 44" - 10/18/2020 12:00:00 AM EST suspended Simpl icity Adult Brief 32"-44" - eCW1 (Formerly [facility]) Simplicity Adult Brief 32"-44" - Simplicity Adult Brief 32"- 44" - 10/18/2020 12:00:00 AM EST suspended Simpl icity Adult Brief 32"-44" - eCW1 (Formerly [facility]) Simplicity Adult Brief 32"-44" - Simplicity Adult Brief 32"- 44" - 10/18/2020 12:00:00 AM EST suspended Simpl icity Adult Brief 32"-44" - eCW1 (Formerly [facility]) Simplicity Adult Brief 32"-44" - Simplicity Adult Brief 32"- 44" - 10/18/2020 12:00:00 AM EST suspended Simpl icity Adult Brief 32"-44" - eCW1 (Formerly [facility]) Simplicity Adult Brief 32"-44" - [facility] Adult Brief 32"- 44" - 10/18/2020 12:00:00 AM EST suspended Simpl icity Adult Brief 32"-44" - eCW1 (Formerly [facility]) Simplicity Adult Brief 32"-44" - Simplicity Adult Brief 32"- 44" - 10/18/2020 12:00:00 AM EST suspended Simpl icity Adult Brief 32"-44" - eCW1 (Formerly [facility]) Simplicity Adult Brief 32"-44" - Simplicity Adult Brief 32"- 44" - 10/18/2020 12:00:00 AM EST suspended Simpl icity Adult Brief 32"-44" - eCW1 (Formerly [facility]) Simplicity Adult Brief 32"-44" - [facility]plicity Adult Brief 32"- 44" - 10/18/2020 12:00:00 AM EST active Simplici ty Adult Brief 32"-44" - eCW1 ([facility]ly [facility]) Simplicity Adult Brief 32"-44" - Simplicity Adult Brief 32"- 44" - 10/18/2020 12:00:00 AM EST suspended Simpl icity Adult Brief 32"-44" - eCW1 (Formerly [facility]) Simplicity Adult Brief 32"-44" - Simplicity Adult Brief 32"- 44" - 10/18/2020 12:00:00 AM EST suspended Simpl icity Adult Brief 32"-44" - eCW1 ([facility]ly [facility]) Simplicity Adult Brief 32"-44" - Simplicity Adult Brief 32"- 44" - 10/18/2020 12:00:00 AM EST active Simplici ty Adult Brief 32"-44" - eCW1 (Formerly [facility]) Simplicity Adult Brief 32"-44" - [facility] Adult Brief 32"- 44" - 10/18/2020 12:00:00 AM EST active Simplici ty Adult Brief 32"-44" - eCW1 (Formerly [facility]) Simplicity Adult Brief 32"-44" - Simplicity Adult Brief 32"- 44" - 10/18/2020 12:00:00 AM EST suspended Simpl icity Adult Brief 32"-44" - eCW1 (Formerly [facility]) Simplicity Adult Brief 32"-44" - Simplicity Adult Brief 32"- 44" - 10/18/2020 12:00:00 AM EST suspended Simpl icity Adult Brief 32"-44" - eCW1 (Formerly [facility]) Simplicity Adult Brief 32"-44" - Simplicity Adult Brief 32"- 44" - 10/18/2020 12:00:00 AM EST active Simplici ty Adult Brief 32"-44" - eCW1 ([facility]ly [facility]) Simplicity Adult Brief 32"-44" - Simplicity Adult Brief 32"- 44" - 10/18/2020 12:00:00 AM EST suspended Simpl icity Adult Brief 32"-44" - eCW1 (Formerly [facility]) Simplicity Adult Brief 32"-44" - Simplicity Adult Brief 32"- 44" - 10/18/2020 12:00:00 AM EST suspended Simpl icity Adult Brief 32"-44" - eCW1 (Formerly [facility]) Simplicity Adult Brief 32"-44" - Simplicity Adult Brief 32"- 44" - 10/18/2020 12:00:00 AM EST suspended Simpl icity Adult Brief 32"-44" - eCW1 (Formerly [facility]) Simplicity Adult Brief 32"-44" - Simplicity Adult Brief 32"- 44" - 10/18/2020 12:00:00 AM EST suspended Simpl icity Adult Brief 32"-44" - eCW1 (Formerly [facility]) Simplicity Adult Brief 32"-44" - Simplicity Adult Brief 32"- 44" - 10/18/2020 12:00:00 AM EST suspended Simpl icity Adult Brief 32"-44" - eCW1 (Formerly [facility]) Simplicity Adult Brief 32"-44" - Simplicity Adult Brief 32"- 44" - 10/18/2020 12:00:00 AM EST suspended Simpl icity Adult Brief 32"-44" - eCW1 (Formerly [facility]) NITROFURANTOIN, MACROCRYSTALS 25 MG / Ni trofurantoin, Monohydrate 75 MG Oral Capsule [Macrobid] Macrobid 100 MG Macrobid 100 MG 09/23/2020 12:00:00 AM EST active Macrobid 100 MG eCW1 ([facility]) NITROFURANTOIN, MACROCRYSTALS 25 MG / Ni trofurantoin, Monohydrate 75 MG Oral Capsule [Macrobid] Macrobid 100 MG Macrobid 100 MG 09/23/2020 12:00:00 AM EST active Macrobid 100 MG eCW1 ([facility]) NITROFURANTOIN, MACROCRYSTALS 25 MG / Ni trofurantoin, Monohydrate 75 MG Oral Capsule [Macrobid] Macrobid 100 MG Macrobid 100 MG 09/23/2020 12:00:00 AM EST active Macrobid 100 MG eCW1 ([facility]) NITROFURANTOIN, MACROCRYSTALS 25 MG / Ni trofurantoin, Monohydrate 75 MG Oral Capsule [Macrobid] Macrobid 100 MG Macrobid 100 MG 09/23/2020 12:00:00 AM EST active Macrobid 100 MG eCW1 ([facility]) NITROFURANTOIN, MACROCRYSTALS 25 MG / Ni trofurantoin, Monohydrate 75 MG Oral Capsule [Macrobid] Macrobid 100 MG Macrobid 100 MG 09/23/2020 12:00:00 AM EST active Macrobid 100 MG eCW1 ([facility]) NITROFURANTOIN, MACROCRYSTALS 25 MG / Ni trofurantoin, Monohydrate 75 MG Oral Capsule [Macrobid] Macrobid 100 MG Macrobid 100 MG 09/23/2020 12:00:00 AM EST active Macrobid 100 MG eCW1 ([facility]) NITROFURANTOIN, MACROCRYSTALS 25 MG / Ni trofurantoin, Monohydrate 75 MG Oral Capsule [Macrobid] Macrobid 100 MG Macrobid 100 MG 09/23/2020 12:00:00 AM EST active Macrobid 100 MG eCW1 ([facility]) NITROFURANTOIN, MACROCRYSTALS 25 MG / Ni trofurantoin, Monohydrate 75 MG Oral Capsule [Macrobid] Macrobid 100 MG Macrobid 100 MG 09/23/2020 12:00:00 AM EST active Macrobid 100 MG eCW1 ([facility]) NITROFURANTOIN, MACROCRYSTALS 25 MG / Ni trofurantoin, Monohydrate 75 MG Oral Capsule [Macrobid] Macrobid 100 MG Macrobid 100 MG 09/23/2020 12:00:00 AM EST active Macrobid 100 MG eCW1 ([facility]) NITROFURANTOIN, MACROCRYSTALS 25 MG / Ni trofurantoin, Monohydrate 75 MG Oral Capsule [Macrobid] Macrobid 100 MG Macrobid 100 MG 09/23/2020 12:00:00 AM EST active Macrobid 100 MG eCW1 ([facility]) NITROFURANTOIN, MACROCRYSTALS 25 MG / Ni trofurantoin, Monohydrate 75 MG Oral Capsule [Macrobid] Macrobid 100 MG Macrobid 100 MG 09/23/2020 12:00:00 AM EST active Macrobid 100 MG eCW1 ([facility]) NITROFURANTOIN, MACROCRYSTALS 25 MG / Ni trofurantoin, Monohydrate 75 MG Oral Capsule [Macrobid] Macrobid 100 MG Macrobid 100 MG 09/23/2020 12:00:00 AM EST active Macrobid 100 MG eCW1 ([facility]) NITROFURANTOIN, MACROCRYSTALS 25 MG / Ni trofurantoin, Monohydrate 75 MG Oral Capsule [Macrobid] Macrobid 100 MG Macrobid 100 MG 09/23/2020 12:00:00 AM EST active Macrobid 100 MG eCW1 ([facility]) NITROFURANTOIN, MACROCRYSTALS 25 MG / Ni trofurantoin, Monohydrate 75 MG Oral Capsule [Macrobid] Macrobid 100 MG Macrobid 100 MG 09/23/2020 12:00:00 AM EST active Macrobid 100 MG eCW1 ([facility]) NITROFURANTOIN, MACROCRYSTALS 25 MG / Ni trofurantoin, Monohydrate 75 MG Oral Capsule [Macrobid] Macrobid 100 MG Macrobid 100 MG 09/23/2020 12:00:00 AM EST active Macrobid 100 MG eCW1 ([facility]) NITROFURANTOIN, MACROCRYSTALS 25 MG / Ni trofurantoin, Monohydrate 75 MG Oral Capsule [Macrobid] Macrobid 100 MG Macrobid 100 MG 09/23/2020 12:00:00 AM EST active Macrobid 100 MG eCW1 ([facility]) NITROFURANTOIN, MACROCRYSTALS 25 MG / Ni trofurantoin, Monohydrate 75 MG Oral Capsule [Macrobid] Macrobid 100 MG Macrobid 100 MG 09/23/2020 12:00:00 AM EST active Macrobid 100 MG eCW1 ([facility]) NITROFURANTOIN, MACROCRYSTALS 25 MG / Ni trofurantoin, Monohydrate 75 MG Oral Capsule [Macrobid] Macrobid 100 MG Macrobid 100 MG 09/23/2020 12:00:00 AM EST active Macrobid 100 MG eCW1 ([facility]) NITROFURANTOIN, MACROCRYSTALS 25 MG / Ni trofurantoin, Monohydrate 75 MG Oral Capsule [Macrobid] Macrobid 100 MG Macrobid 100 MG 09/23/2020 12:00:00 AM EST active Macrobid 100 MG eCW1 ([facility]) NITROFURANTOIN, MACROCRYSTALS 25 MG / Ni trofurantoin, Monohydrate 75 MG Oral Capsule [Macrobid] Macrobid 100 MG Macrobid 100 MG 09/23/2020 12:00:00 AM EST active Macrobid 100 MG eCW1 ([facility]) NITROFURANTOIN, MACROCRYSTALS 25 MG / Ni trofurantoin, Monohydrate 75 MG Oral Capsule [Macrobid] Macrobid 100 MG Macrobid 100 MG 09/23/2020 12:00:00 AM EST active Macrobid 100 MG eCW1 ([facility]) NITROFURANTOIN, MACROCRYSTALS 25 MG / Ni trofurantoin, Monohydrate 75 MG Oral Capsule [Macrobid] Macrobid 100 MG Macrobid 100 MG 09/23/2020 12:00:00 AM EST active Macrobid 100 MG eCW1 ([facility]) NITROFURANTOIN, MACROCRYSTALS 25 MG / Ni trofurantoin, Monohydrate 75 MG Oral Capsule [Macrobid] Macrobid 100 MG Macrobid 100 MG 09/23/2020 12:00:00 AM EST active Macrobid 100 MG eCW1 ([facility]) NITROFURANTOIN, MACROCRYSTALS 25 MG / Ni trofurantoin, Monohydrate 75 MG Oral Capsule [Macrobid] Macrobid 100 MG Macrobid 100 MG 09/23/2020 12:00:00 AM EST active Macrobid 100 MG eCW1 ([facility]) NITROFURANTOIN, MACROCRYSTALS 25 MG / Ni trofurantoin, Monohydrate 75 MG Oral Capsule [Macrobid] Macrobid 100 MG Macrobid 100 MG 09/23/2020 12:00:00 AM EST active Macrobid 100 MG eCW1 ([facility]) NITROFURANTOIN, MACROCRYSTALS 25 MG / Ni trofurantoin, Monohydrate 75 MG Oral Capsule [Macrobid] Macrobid 100 MG Macrobid 100 MG 09/23/2020 12:00:00 AM EST active Macrobid 100 MG eCW1 ([facility]) NITROFURANTOIN, MACROCRYSTALS 25 MG / Ni trofurantoin, Monohydrate 75 MG Oral Capsule [Macrobid] Macrobid 100 MG Macrobid 100 MG 09/23/2020 12:00:00 AM EST active Macrobid 100 MG eCW1 ([facility]) NITROFURANTOIN, MACROCRYSTALS 25 MG / Ni trofurantoin, Monohydrate 75 MG Oral Capsule [Macrobid] Macrobid 100 MG Macrobid 100 MG 09/23/2020 12:00:00 AM EST active Macrobid 100 MG eCW1 ([facility]) NITROFURANTOIN, MACROCRYSTALS 25 MG / Ni trofurantoin, Monohydrate 75 MG Oral Capsule [Macrobid] Macrobid 100 MG Macrobid 100 MG 09/23/2020 12:00:00 AM EST active Macrobid 100 MG eCW1 ([facility]) NITROFURANTOIN, MACROCRYSTALS 25 MG / Ni trofurantoin, Monohydrate 75 MG Oral Capsule [Macrobid] Macrobid 100 MG Macrobid 100 MG 09/23/2020 12:00:00 AM EST active Macrobid 100 MG eCW1 ([facility]) NITROFURANTOIN, MACROCRYSTALS 25 MG / Ni trofurantoin, Monohydrate 75 MG Oral Capsule [Macrobid] Macrobid 100 MG Macrobid 100 MG 09/23/2020 12:00:00 AM EST active Macrobid 100 MG eCW1 ([facility]) NITROFURANTOIN, MACROCRYSTALS 25 MG / Ni trofurantoin, Monohydrate 75 MG Oral Capsule [Macrobid] Macrobid 100 MG Macrobid 100 MG 09/23/2020 12:00:00 AM EST active Macrobid 100 MG eCW1 ([facility]) NITROFURANTOIN, MACROCRYSTALS 25 MG / Ni trofurantoin, Monohydrate 75 MG Oral Capsule [Macrobid] Macrobid 100 MG Macrobid 100 MG 09/23/2020 12:00:00 AM EST active Macrobid 100 MG eCW1 ([facility]) NITROFURANTOIN, MACROCRYSTALS 25 MG / Ni trofurantoin, Monohydrate 75 MG Oral Capsule [Macrobid] Macrobid 100 MG Macrobid 100 MG 09/23/2020 12:00:00 AM EST active Macrobid 100 MG eCW1 ([facility]) NITROFURANTOIN, MACROCRYSTALS 25 MG / Ni trofurantoin, Monohydrate 75 MG Oral Capsule [Macrobid] Macrobid 100 MG Macrobid 100 MG 09/23/2020 12:00:00 AM EST active Macrobid 100 MG eCW1 ([facility]) NITROFURANTOIN, MACROCRYSTALS 25 MG / Ni trofurantoin, Monohydrate 75 MG Oral Capsule [Macrobid] Macrobid 100 MG Macrobid 100 MG 09/23/2020 12:00:00 AM EST active Macrobid 100 MG eCW1 ([facility]) Sulfamethoxazole 800 MG / Trimethoprim 1 60 MG Oral Tablet [Bactrim] Bactrim DS 800-160 MG Bactrim DS 800-160 MG 08/24/2020 12:00:00 AM EST 1.0 {table t} suspended Bactrim DS 800-160 MG eCW1 ( [facility]) Oxybutynin chloride 5 MG Oral Tablet Oxybutynin Chlori de 5 MG Oxybutynin Chloride 5 MG 08/24/2020 12:00:00 AM EST 1.0 {tablet} suspended Oxybutynin Chloride 5 MG eCW1 ([facility]ly [facility]) Sulfamethoxazole 800 MG / Trimethoprim 1 60 MG Oral Tablet [Bactrim] Bactrim DS 800-160 MG Bactrim DS 800-160 MG 08/24/2020 12:00:00 AM EST 1.0 {table t} suspended Bactrim DS 800-160 MG eCW1 ( [facility]) Oxybutynin chloride 5 MG Oral Tablet Oxybutynin Chlori de 5 MG Oxybutynin Chloride 5 MG 08/24/2020 12:00:00 AM EST 1.0 {tablet} suspended Oxybutynin Chloride 5 MG eCW1 ([facility]) Oxybutynin chloride 5 MG Oral Tablet Oxybutynin Chlori de 5 MG Oxybutynin Chloride 5 MG 08/24/2020 12:00:00 AM EST 1.0 {tablet} suspended Oxybutynin Chloride 5 MG eCW1 ([facility]ly [facility]) Sulfamethoxazole 800 MG / Trimethoprim 1 60 MG Oral Tablet [Bactrim] Bactrim DS 800-160 MG Bactrim DS 800-160 MG 08/24/2020 12:00:00 AM EST 1.0 {table t} suspended Bactrim DS 800-160 MG eCW1 ( [facility]) Oxybutynin chloride 5 MG Oral Tablet Oxybutynin Chlori de 5 MG Oxybutynin Chloride 5 MG 08/24/2020 12:00:00 AM EST 1.0 {tablet} suspended Oxybutynin Chloride 5 MG eCW1 ([facility]ly [facility]) Sulfamethoxazole 800 MG / Trimethoprim 1 60 MG Oral Tablet [Bactrim] Bactrim DS 800-160 MG Bactrim DS 800-160 MG 08/24/2020 12:00:00 AM EST 1.0 {table t} suspended Bactrim DS 800-160 MG eCW1 ( [facility]) Sulfamethoxazole 800 MG / Trimethoprim 1 60 MG Oral Tablet [Bactrim] Bactrim DS 800-160 MG Bactrim DS 800-160 MG 08/24/2020 12:00:00 AM EST 1.0 {table t} suspended Bactrim DS 800-160 MG eCW1 ( [facility]) Oxybutynin chloride 5 MG Oral Tablet Oxybutynin Chlori de 5 MG Oxybutynin Chloride 5 MG 08/24/2020 12:00:00 AM EST 1.0 {tablet} suspended Oxybutynin Chloride 5 MG eCW1 ([facility]ly [facility]) Oxybutynin chloride 5 MG Oral Tablet Oxybutynin Chlori de 5 MG Oxybutynin Chloride 5 MG 08/24/2020 12:00:00 AM EST 1.0 {tablet} suspended Oxybutynin Chloride 5 MG eCW1 ([facility]) Oxybutynin chloride 5 MG Oral Tablet Oxybutynin Chlori de 5 MG Oxybutynin Chloride 5 MG 08/24/2020 12:00:00 AM EST 1.0 {tablet} suspended Oxybutynin Chloride 5 MG eCW1 ([facility]ly [facility]) Sulfamethoxazole 800 MG / Trimethoprim 1 60 MG Oral Tablet [Bactrim] Bactrim DS 800-160 MG Bactrim DS 800-160 MG 08/24/2020 12:00:00 AM EST 1.0 {table t} active Bactrim DS 800-160 MG eCW1 ( [facility]) Sulfamethoxazole 800 MG / Trimethoprim 1 60 MG Oral Tablet [Bactrim] Bactrim DS 800-160 MG Bactrim DS 800-160 MG 08/24/2020 12:00:00 AM EST 1.0 {table t} active Bactrim DS 800-160 MG eCW1 ( [facility]) Oxybutynin chloride 5 MG Oral Tablet Oxybutynin Chlori de 5 MG Oxybutynin Chloride 5 MG 08/24/2020 12:00:00 AM EST 1.0 {tablet} active Oxybutynin Chloride 5 MG eCW1 ([facility]) Oxybutynin chloride 5 MG Oral Tablet Oxybutynin Chlori de 5 MG Oxybutynin Chloride 5 MG 08/24/2020 12:00:00 AM EST 1.0 {tablet} active Oxybutynin Chloride 5 MG eCW1 ([facility]) Sulfamethoxazole 800 MG / Trimethoprim 1 60 MG Oral Tablet [Bactrim] Bactrim DS 800-160 MG Bactrim DS 800-160 MG 08/24/2020 12:00:00 AM EST 1.0 {table t} suspended Bactrim DS 800-160 MG eCW1 ( [facility]) Oxybutynin chloride 5 MG Oral Tablet Oxybutynin Chlori de 5 MG Oxybutynin Chloride 5 MG 08/24/2020 12:00:00 AM EST 1.0 {tablet} suspended Oxybutynin Chloride 5 MG eCW1 ([facility]) Sulfamethoxazole 800 MG / Trimethoprim 1 60 MG Oral Tablet [Bactrim] Bactrim DS 800-160 MG Bactrim DS 800-160 MG 08/24/2020 12:00:00 AM EST 1.0 {table t} suspended Bactrim DS 800-160 MG eCW1 ( [facility]) Oxybutynin chloride 5 MG Oral Tablet Oxybutynin Chlori de 5 MG Oxybutynin Chloride 5 MG 08/24/2020 12:00:00 AM EST 1.0 {tablet} suspended Oxybutynin Chloride 5 MG eCW1 ([facility]) Sulfamethoxazole 800 MG / Trimethoprim 1 60 MG Oral Tablet [Bactrim] Bactrim DS 800-160 MG Bactrim DS 800-160 MG 08/24/2020 12:00:00 AM EST 1.0 {table t} suspended Bactrim DS 800-160 MG eCW1 ( [facility]) Oxybutynin chloride 5 MG Oral Tablet Oxybutynin Chlori de 5 MG Oxybutynin Chloride 5 MG 08/24/2020 12:00:00 AM EST 1.0 {tablet} suspended Oxybutynin Chloride 5 MG eCW1 ([facility]) Sulfamethoxazole 800 MG / Trimethoprim 1 60 MG Oral Tablet [Bactrim] Bactrim DS 800-160 MG Bactrim DS 800-160 MG 08/24/2020 12:00:00 AM EST 1.0 {table t} suspended Bactrim DS 800-160 MG eCW1 ( [facility]) Sulfamethoxazole 800 MG / Trimethoprim 1 60 MG Oral Tablet [Bactrim] Bactrim DS 800-160 MG Bactrim DS 800-160 MG 08/24/2020 12:00:00 AM EST 1.0 {table t} suspended Bactrim DS 800-160 MG eCW1 ( [facility]) Oxybutynin chloride 5 MG Oral Tablet Oxybutynin Chlori de 5 MG Oxybutynin Chloride 5 MG 08/24/2020 12:00:00 AM EST 1.0 {tablet} suspended Oxybutynin Chloride 5 MG eCW1 ([facility]) Sulfamethoxazole 800 MG / Trimethoprim 1 60 MG Oral Tablet [Bactrim] Bactrim DS 800-160 MG Bactrim DS 800-160 MG 08/24/2020 12:00:00 AM EST 1.0 {table t} suspended Bactrim DS 800-160 MG eCW1 ( [facility]) Oxybutynin chloride 5 MG Oral Tablet Oxybutynin Chlori de 5 MG Oxybutynin Chloride 5 MG 08/24/2020 12:00:00 AM EST 1.0 {tablet} suspended Oxybutynin Chloride 5 MG eCW1 ([facility]) Oxybutynin chloride 5 MG Oral Tablet Oxybutynin Chlori de 5 MG Oxybutynin Chloride 5 MG 08/24/2020 12:00:00 AM EST 1.0 {tablet} active Oxybutynin Chloride 5 MG eCW1 ([facility]) Oxybutynin chloride 5 MG Oral Tablet Oxybutynin Chlori de 5 MG Oxybutynin Chloride 5 MG 08/24/2020 12:00:00 AM EST 1.0 {tablet} suspended Oxybutynin Chloride 5 MG eCW1 ([facility]) Oxybutynin chloride 5 MG Oral Tablet Oxybutynin Chlori de 5 MG Oxybutynin Chloride 5 MG 08/24/2020 12:00:00 AM EST 1.0 {tablet} suspended Oxybutynin Chloride 5 MG eCW1 ([facility]) Oxybutynin chloride 5 MG Oral Tablet Oxybutynin Chlori de 5 MG Oxybutynin Chloride 5 MG 08/24/2020 12:00:00 AM EST 1.0 {tablet} suspended Oxybutynin Chloride 5 MG eCW1 ([facility]) Oxybutynin chloride 5 MG Oral Tablet Oxybutynin Chlori de 5 MG Oxybutynin Chloride 5 MG 08/24/2020 12:00:00 AM EST 1.0 {tablet} suspended Oxybutynin Chloride 5 MG eCW1 ([facility]) Sulfamethoxazole 800 MG / Trimethoprim 1 60 MG Oral Tablet [Bactrim] Bactrim DS 800-160 MG Bactrim DS 800-160 MG 08/24/2020 12:00:00 AM EST 1.0 {table t} suspended Bactrim DS 800-160 MG eCW1 ( Formerly [facility]) Oxybutynin chloride 5 MG Oral Tablet Oxybutynin Chlori de 5 MG Oxybutynin Chloride 5 MG 08/24/2020 12:00:00 AM EST 1.0 {tablet} active Oxybutynin Chloride 5 MG eCW1 (Formerly [facility]) Sulfamethoxazole 800 MG / Trimethoprim 1 60 MG Oral Tablet [Bactrim] Bactrim DS 800-160 MG Bactrim DS 800-160 MG 08/24/2020 12:00:00 AM EST 1.0 {table t} suspended Bactrim DS 800-160 MG eCW1 ( Formerly [facility]) Oxybutynin chloride 5 MG Oral Tablet Oxybutynin Chlori de 5 MG Oxybutynin Chloride 5 MG 08/24/2020 12:00:00 AM EST 1.0 {tablet} suspended Oxybutynin Chloride 5 MG eCW1 (Formerly [facility]) Oxybutynin chloride 5 MG Oral Tablet Oxybutynin Chlori de 5 MG Oxybutynin Chloride 5 MG 08/24/2020 12:00:00 AM EST 1.0 {tablet} suspended Oxybutynin Chloride 5 MG eCW1 (Formerly [facility]) Sulfamethoxazole 800 MG / Trimethoprim 1 60 MG Oral Tablet [Bactrim] Bactrim DS 800-160 MG Bactrim DS 800-160 MG 08/24/2020 12:00:00 AM EST 1.0 {table t} active Bactrim DS 800-160 MG eCW1 ( Formerly [facility]) Oxybutynin chloride 5 MG Oral Tablet Oxybutynin Chlori de 5 MG Oxybutynin Chloride 5 MG 08/24/2020 12:00:00 AM EST 1.0 {tablet} active Oxybutynin Chloride 5 MG eCW1 (Formerly [facility]) Sulfamethoxazole 800 MG / Trimethoprim 1 60 MG Oral Tablet [Bactrim] Bactrim DS 800-160 MG Bactrim DS 800-160 MG 08/24/2020 12:00:00 AM EST 1.0 {table t} suspended Bactrim DS 800-160 MG eCW1 ( Formerly [facility]) Oxybutynin chloride 5 MG Oral Tablet Oxybutynin Chlori de 5 MG Oxybutynin Chloride 5 MG 08/24/2020 12:00:00 AM EST 1.0 {tablet} suspended Oxybutynin Chloride 5 MG eCW1 (Formerly [facility]) Sulfamethoxazole 800 MG / Trimethoprim 1 60 MG Oral Tablet [Bactrim] Bactrim DS 800-160 MG Bactrim DS 800-160 MG 08/24/2020 12:00:00 AM EST 1.0 {table t} suspended Bactrim DS 800-160 MG eCW1 ( Formerly [facility]) Oxybutynin chloride 5 MG Oral Tablet Oxybutynin Chlori de 5 MG Oxybutynin Chloride 5 MG 08/24/2020 12:00:00 AM EST 1.0 {tablet} active Oxybutynin Chloride 5 MG eCW1 (Formerly [facility]) Oxybutynin chloride 5 MG Oral Tablet Oxybutynin Chlori de 5 MG Oxybutynin Chloride 5 MG 08/24/2020 12:00:00 AM EST 1.0 {tablet} suspended Oxybutynin Chloride 5 MG eCW1 (Formerly [facility]) Sulfamethoxazole 800 MG / Trimethoprim 1 60 MG Oral Tablet [Bactrim] Bactrim DS 800-160 MG Bactrim DS 800-160 MG 08/24/2020 12:00:00 AM EST 1.0 {table t} suspended Bactrim DS 800-160 MG eCW1 ( Formerly [facility]) Sulfamethoxazole 800 MG / Trimethoprim 1 60 MG Oral Tablet [Bactrim] Bactrim DS 800-160 MG Bactrim DS 800-160 MG 08/24/2020 12:00:00 AM EST 1.0 {table t} suspended Bactrim DS 800-160 MG eCW1 ( Formerly [facility]) Sulfamethoxazole 800 MG / Trimethoprim 1 60 MG Oral Tablet [Bactrim] Bactrim DS 800-160 MG Bactrim DS 800-160 MG 08/24/2020 12:00:00 AM EST 1.0 {table t} active Bactrim DS 800-160 MG eCW1 ( Formerly [facility]) Sulfamethoxazole 800 MG / Trimethoprim 1 60 MG Oral Tablet [Bactrim] Bactrim DS 800-160 MG Bactrim DS 800-160 MG 08/24/2020 12:00:00 AM EST 1.0 {table t} suspended Bactrim DS 800-160 MG eCW1 ( Formerly [facility]) Sulfamethoxazole 800 MG / Trimethoprim 1 60 MG Oral Tablet [Bactrim] Bactrim DS 800-160 MG Bactrim DS 800-160 MG 08/24/2020 12:00:00 AM EST 1.0 {table t} suspended Bactrim DS 800-160 MG eCW1 ( [facility]) Oxybutynin chloride 5 MG Oral Tablet Oxybutynin Chlori de 5 MG Oxybutynin Chloride 5 MG 08/24/2020 12:00:00 AM EST 1.0 {tablet} suspended Oxybutynin Chloride 5 MG eCW1 (Formerly [facility]) Sulfamethoxazole 800 MG / Trimethoprim 1 60 MG Oral Tablet [Bactrim] Bactrim DS 800-160 MG Bactrim DS 800-160 MG 08/24/2020 12:00:00 AM EST 1.0 {table t} suspended Bactrim DS 800-160 MG eCW1 ( [facility]) Oxybutynin chloride 5 MG Oral Tablet Oxybutynin Chlori de 5 MG Oxybutynin Chloride 5 MG 08/24/2020 12:00:00 AM EST 1.0 {tablet} active Oxybutynin Chloride 5 MG eCW1 (Formerly [facility]) Oxybutynin chloride 5 MG Oral Tablet Oxybutynin Chlori de 5 MG Oxybutynin Chloride 5 MG 08/24/2020 12:00:00 AM EST 1.0 {tablet} active Oxybutynin Chloride 5 MG eCW1 (Formerly [facility]) Oxybutynin chloride 5 MG Oral Tablet Oxybutynin Chlori de 5 MG Oxybutynin Chloride 5 MG 08/24/2020 12:00:00 AM EST 1.0 {tablet} suspended Oxybutynin Chloride 5 MG eCW1 (Formerly [facility]) Sulfamethoxazole 800 MG / Trimethoprim 1 60 MG Oral Tablet [Bactrim] Bactrim DS 800-160 MG Bactrim DS 800-160 MG 08/24/2020 12:00:00 AM EST 1.0 {table t} suspended Bactrim DS 800-160 MG eCW1 ( [facility]) Oxybutynin chloride 5 MG Oral Tablet Oxybutynin Chlori de 5 MG Oxybutynin Chloride 5 MG 08/24/2020 12:00:00 AM EST 1.0 {tablet} suspended Oxybutynin Chloride 5 MG eCW1 (Formerly [facility]) Sulfamethoxazole 800 MG / Trimethoprim 1 60 MG Oral Tablet [Bactrim] Bactrim DS 800-160 MG Bactrim DS 800-160 MG 08/24/2020 12:00:00 AM EST 1.0 {table t} active Bactrim DS 800-160 MG eCW1 ( [facility]) Oxybutynin chloride 5 MG Oral Tablet Oxybutynin Chlori de 5 MG Oxybutynin Chloride 5 MG 08/24/2020 12:00:00 AM EST 1.0 {tablet} suspended Oxybutynin Chloride 5 MG eCW1 (Formerly [facility]) Oxybutynin chloride 5 MG Oral Tablet Oxybutynin Chlori de 5 MG Oxybutynin Chloride 5 MG 08/24/2020 12:00:00 AM EST 1.0 {tablet} active Oxybutynin Chloride 5 MG eCW1 (Formerly [facility]) Sulfamethoxazole 800 MG / Trimethoprim 1 60 MG Oral Tablet [Bactrim] Bactrim DS 800-160 MG Bactrim DS 800-160 MG 08/24/2020 12:00:00 AM EST 1.0 {table t} suspended Bactrim DS 800-160 MG eCW1 ( [facility]) Sulfamethoxazole 800 MG / Trimethoprim 1 60 MG Oral Tablet [Bactrim] Bactrim DS 800-160 MG Bactrim DS 800-160 MG 08/24/2020 12:00:00 AM EST 1.0 {table t} suspended Bactrim DS 800-160 MG eCW1 ( [facility]) Sulfamethoxazole 800 MG / Trimethoprim 1 60 MG Oral Tablet [Bactrim] Bactrim DS 800-160 MG Bactrim DS 800-160 MG 08/24/2020 12:00:00 AM EST 1.0 {table t} active Bactrim DS 800-160 MG eCW1 ( [facility]) Sulfamethoxazole 800 MG / Trimethoprim 1 60 MG Oral Tablet [Bactrim] Bactrim DS 800-160 MG Bactrim DS 800-160 MG 08/24/2020 12:00:00 AM EST 1.0 {table t} suspended Bactrim DS 800-160 MG eCW1 ( [facility]) Sulfamethoxazole 800 MG / Trimethoprim 1 60 MG Oral Tablet [Bactrim] Bactrim DS 800-160 MG Bactrim DS 800-160 MG 08/24/2020 12:00:00 AM EST 1.0 {table t} suspended Bactrim DS 800-160 MG eCW1 ( [facility]) Sulfamethoxazole 800 MG / Trimethoprim 1 60 MG Oral Tablet [Bactrim] Bactrim DS 800-160 MG Bactrim DS 800-160 MG 08/24/2020 12:00:00 AM EST 1.0 {table t} suspended Bactrim DS 800-160 MG eCW1 ( [facility]) Sulfamethoxazole 800 MG / Trimethoprim 1 60 MG Oral Tablet [Bactrim] Bactrim DS 800-160 MG Bactrim DS 800-160 MG 08/24/2020 12:00:00 AM EST 1.0 {table t} suspended Bactrim DS 800-160 MG eCW1 ( [facility]) Sulfamethoxazole 800 MG / Trimethoprim 1 60 MG Oral Tablet [Bactrim] Bactrim DS 800-160 MG Bactrim DS 800-160 MG 08/24/2020 12:00:00 AM EST 1.0 {table t} suspended Bactrim DS 800-160 MG eCW1 ( [facility]) Oxybutynin chloride 5 MG Oral Tablet Oxybutynin Chlori de 5 MG Oxybutynin Chloride 5 MG 08/24/2020 12:00:00 AM EST 1.0 {tablet} suspended Oxybutynin Chloride 5 MG eCW1 ([facility]) Oxybutynin chloride 5 MG Oral Tablet Oxybutynin Chlori de 5 MG Oxybutynin Chloride 5 MG 08/24/2020 12:00:00 AM EST 1.0 {tablet} active Oxybutynin Chloride 5 MG eCW1 (Formerly [facility]) Sulfamethoxazole 800 MG / Trimethoprim 1 60 MG Oral Tablet [Bactrim] Bactrim DS 800-160 MG Bactrim DS 800-160 MG 08/24/2020 12:00:00 AM EST 1.0 {table t} suspended Bactrim DS 800-160 MG eCW1 ( [facility]) Oxybutynin chloride 5 MG Oral Tablet Oxybutynin Chlori de 5 MG Oxybutynin Chloride 5 MG 08/24/2020 12:00:00 AM EST 1.0 {tablet} suspended Oxybutynin Chloride 5 MG eCW1 ([facility]) Oxybutynin chloride 5 MG Oral Tablet Oxybutynin Chlori de 5 MG Oxybutynin Chloride 5 MG 08/24/2020 12:00:00 AM EST 1.0 {tablet} active Oxybutynin Chloride 5 MG eCW1 (Former[facility]) Oxybutynin chloride 5 MG Oral Tablet Oxybutynin Chlori de 5 MG Oxybutynin Chloride 5 MG 08/24/2020 12:00:00 AM EST 1.0 {tablet} suspended Oxybutynin Chloride 5 MG eCW1 (Former[facility]) Sulfamethoxazole 800 MG / Trimethoprim 1 60 MG Oral Tablet [Bactrim] Bactrim DS 800-160 MG Bactrim DS 800-160 MG 08/24/2020 12:00:00 AM EST 1.0 {table t} suspended Bactrim DS 800-160 MG eCW1 ( [facility]) Sulfamethoxazole 800 MG / Trimethoprim 1 60 MG Oral Tablet [Bactrim] Bactrim DS 800-160 MG Bactrim DS 800-160 MG 08/24/2020 12:00:00 AM EST 1.0 {table t} suspended Bactrim DS 800-160 MG eCW1 ( [facility]) Sulfamethoxazole 800 MG / Trimethoprim 1 60 MG Oral Tablet [Bactrim] Bactrim DS 800-160 MG Bactrim DS 800-160 MG 08/24/2020 12:00:00 AM EST 1.0 {table t} suspended Bactrim DS 800-160 MG eCW1 ( [facility]) Sulfamethoxazole 800 MG / Trimethoprim 1 60 MG Oral Tablet [Bactrim] Bactrim DS 800-160 MG Bactrim DS 800-160 MG 08/24/2020 12:00:00 AM EST 1.0 {table t} suspended Bactrim DS 800-160 MG eCW1 ( [facility]) Oxybutynin chloride 5 MG Oral Tablet Oxybutynin Chlori de 5 MG Oxybutynin Chloride 5 MG 08/24/2020 12:00:00 AM EST 1.0 {tablet} suspended Oxybutynin Chloride 5 MG eCW1 (Formerly [facility]) Levofloxacin 250 MG Oral Tablet Levofloxacin 250 MG 08/01/2020 1 2:00:00 AM EDT 1.0 {tablet} suspended Levofloxa monserrat 250 MG eCW1 (Formerly [facility]) Levofloxacin 250 MG Oral Tablet levoFLOXacin 250 MG levoFLOX acin 250 MG 08/01/2020 12:00:00 AM EDT 1.0 {tablet} suspende d levoFLOXacin 250 MG eCW1 (Formerly [facility]) Levofloxacin 250 MG Oral Tablet Levofloxacin 250 MG 08/01/2020 1 2:00:00 AM EDT 1.0 {tablet} suspended Levofloxa monserrat 250 MG eCW1 (Formerly [facility]) Levofloxacin 250 MG Oral Tablet Levofloxacin 250 MG 08/01/2020 1 2:00:00 AM EDT 1.0 {tablet} suspended Levofloxa monserrat 250 MG eCW1 (Formerly [facility]) Levofloxacin 250 MG Oral Tablet levoFLOXacin 250 MG levoFLOX acin 250 MG 08/01/2020 12:00:00 AM EDT 1.0 {tablet} suspende d levoFLOXacin 250 MG eCW1 (Formerly [facility]) Levofloxacin 250 MG Oral Tablet Levofloxacin 250 MG 08/01/2020 1 2:00:00 AM EDT 1.0 {tablet} suspended Levofloxa monserrat 250 MG eCW1 (Formerly [facility]) Levofloxacin 250 MG Oral Tablet levoFLOXacin 250 MG levoFLOX acin 250 MG 08/01/2020 12:00:00 AM EDT 1.0 {tablet} suspende d levoFLOXacin 250 MG eCW1 (Formerly [facility]) Levofloxacin 250 MG Oral Tablet Levofloxacin 250 MG 08/01/2020 1 2:00:00 AM EDT 1.0 {tablet} suspended Levofloxa monserrat 250 MG eCW1 (Formerly [facility]) Levofloxacin 250 MG Oral Tablet levoFLOXacin 250 MG levoFLOX acin 250 MG 08/01/2020 12:00:00 AM EDT 1.0 {tablet} suspende d levoFLOXacin 250 MG eCW1 (Formerly [facility]) Levofloxacin 250 MG Oral Tablet Levofloxacin 250 MG 08/01/2020 1 2:00:00 AM EDT 1.0 {tablet} suspended Levofloxa monserrat 250 MG eCW1 (Formerly [facility]) Levofloxacin 250 MG Oral Tablet levoFLOXacin 250 MG levoFLOX acin 250 MG 08/01/2020 12:00:00 AM EDT 1.0 {tablet} suspende d levoFLOXacin 250 MG eCW1 (Formerly [facility]) Levofloxacin 250 MG Oral Tablet Levofloxacin 250 MG 08/01/2020 1 2:00:00 AM EDT 1.0 {tablet} suspended Levofloxa monserrat 250 MG eCW1 (Formerly [facility]) Levofloxacin 250 MG Oral Tablet levoFLOXacin 250 MG levoFLOX acin 250 MG 08/01/2020 12:00:00 AM EDT 1.0 {tablet} suspende d levoFLOXacin 250 MG eCW1 (Former[facility]) Levofloxacin 250 MG Oral Tablet Levofloxacin 250 MG 08/01/2020 1 2:00:00 AM EDT 1.0 {tablet} suspended Levofloxa monserrat 250 MG eCW1 (Former[facility]) Levofloxacin 250 MG Oral Tablet Levofloxacin 250 MG 08/01/2020 1 2:00:00 AM EDT 1.0 {tablet} suspended Levofloxa monserrat 250 MG eCW1 (Former[facility]) Levofloxacin 250 MG Oral Tablet Levofloxacin 250 MG 08/01/2020 1 2:00:00 AM EDT 1.0 {tablet} suspended Levofloxa monserrat 250 MG eCW1 (Formerly [facility]) Levofloxacin 250 MG Oral Tablet Levofloxacin 250 MG 08/01/2020 1 2:00:00 AM EDT 1.0 {tablet} suspended Levofloxa monserrat 250 MG eCW1 (Former[facility]) Levofloxacin 250 MG Oral Tablet Levofloxacin 250 MG 08/01/2020 1 2:00:00 AM EDT 1.0 {tablet} suspended Levofloxa monserrat 250 MG eCW1 (Formerly [facility]) Levofloxacin 250 MG Oral Tablet Levofloxacin 250 MG 08/01/2020 1 2:00:00 AM EDT 1.0 {tablet} suspended Levofloxa monserrat 250 MG eCW1 (Formerly [facility]) Levofloxacin 250 MG Oral Tablet levoFLOXacin 250 MG levoFLOX acin 250 MG 08/01/2020 12:00:00 AM EDT 1.0 {tablet} suspende d levoFLOXacin 250 MG eCW1 (Former[facility]) Levofloxacin 250 MG Oral Tablet Levofloxacin 250 MG 08/01/2020 1 2:00:00 AM EDT 1.0 {tablet} active Levofloxaci n 250 MG eCW1 (Formerly [facility]) Levofloxacin 250 MG Oral Tablet levoFLOXacin 250 MG levoFLOX acin 250 MG 08/01/2020 12:00:00 AM EDT 1.0 {tablet} suspende d levoFLOXacin 250 MG eCW1 (Former[facility]) Levofloxacin 250 MG Oral Tablet Levofloxacin 250 MG 08/01/2020 1 2:00:00 AM EDT 1.0 {tablet} suspended Levofloxa monserrat 250 MG eCW1 (Former[facility]) Levofloxacin 250 MG Oral Tablet Levofloxacin 250 MG 08/01/2020 1 2:00:00 AM EDT 1.0 {tablet} suspended Levofloxa monserrat 250 MG eCW1 (Formerly [facility]) Levofloxacin 250 MG Oral Tablet levoFLOXacin 250 MG levoFLOX acin 250 MG 08/01/2020 12:00:00 AM EDT 1.0 {tablet} suspende d levoFLOXacin 250 MG eCW1 ([facility]) Levofloxacin 250 MG Oral Tablet levoFLOXacin 250 MG levoFLOX acin 250 MG 08/01/2020 12:00:00 AM EDT 1.0 {tablet} suspende d levoFLOXacin 250 MG eCW1 (Formerly [facility]) Levofloxacin 250 MG Oral Tablet Levofloxacin 250 MG 08/01/2020 1 2:00:00 AM EDT 1.0 {tablet} suspended Levofloxa monserrat 250 MG eCW1 (Formerly [facility]) Levofloxacin 250 MG Oral Tablet Levofloxacin 250 MG 08/01/2020 1 2:00:00 AM EDT 1.0 {tablet} suspended Levofloxa monserrat 250 MG eCW1 (Formerly [facility]) Levofloxacin 250 MG Oral Tablet levoFLOXacin 250 MG levoFLOX acin 250 MG 08/01/2020 12:00:00 AM EDT 1.0 {tablet} suspende d levoFLOXacin 250 MG eCW1 (Formerly [facility]) Levofloxacin 250 MG Oral Tablet levoFLOXacin 250 MG levoFLOX acin 250 MG 08/01/2020 12:00:00 AM EDT 1.0 {tablet} suspende d levoFLOXacin 250 MG eCW1 ([facility]) Levofloxacin 250 MG Oral Tablet Levofloxacin 250 MG 08/01/2020 1 2:00:00 AM EDT 1.0 {tablet} suspended Levofloxa monserrat 250 MG eCW1 (Former[facility]) Levofloxacin 250 MG Oral Tablet Levofloxacin 250 MG 08/01/2020 1 2:00:00 AM EDT 1.0 {tablet} suspended Levofloxa monserrat 250 MG eCW1 (Formerly [facility]) Levofloxacin 250 MG Oral Tablet levoFLOXacin 250 MG levoFLOX acin 250 MG 08/01/2020 12:00:00 AM EDT 1.0 {tablet} suspende d levoFLOXacin 250 MG eCW1 (Formerly [facility]) Levofloxacin 250 MG Oral Tablet Levofloxacin 250 MG 08/01/2020 1 2:00:00 AM EDT 1.0 {tablet} suspended Levofloxa monserrat 250 MG eCW1 (Formerly [facility]) Levofloxacin 250 MG Oral Tablet Levofloxacin 250 MG 08/01/2020 1 2:00:00 AM EDT 1.0 {tablet} suspended Levofloxa monserrat 250 MG eCW1 (Formerly [facility]) Levofloxacin 250 MG Oral Tablet Levofloxacin 250 MG 08/01/2020 1 2:00:00 AM EDT 1.0 {tablet} suspended Levofloxa monserrat 250 MG eCW1 (Formerly [facility]) Levofloxacin 250 MG Oral Tablet levoFLOXacin 250 MG levoFLOX acin 250 MG 08/01/2020 12:00:00 AM EDT 1.0 {tablet} suspende d levoFLOXacin 250 MG eCW1 (Formerly [facility]) Levofloxacin 250 MG Oral Tablet Levofloxacin 250 MG 08/01/2020 1 2:00:00 AM EDT 1.0 {tablet} suspended Levofloxa monserrat 250 MG eCW1 (Formerly [facility]) Levofloxacin 250 MG Oral Tablet levoFLOXacin 250 MG levoFLOX acin 250 MG 08/01/2020 12:00:00 AM EDT 1.0 {tablet} suspende d levoFLOXacin 250 MG eCW1 ([facility]ly [facility]) Levofloxacin 250 MG Oral Tablet levoFLOXacin 250 MG levoFLOX acin 250 MG 08/01/2020 12:00:00 AM EDT 1.0 {tablet} suspende d levoFLOXacin 250 MG eCW1 (Formerly [facility]) Sulfamethoxazole 800 MG / Trimethoprim 1 60 MG Oral Tablet [Bactrim] Bactrim DS 800-160 MG Bactrim DS 800-160 MG 07/28/2020 12:00:00 AM EDT 1.0 {table t} active Bactrim DS 800-160 MG eCW1 ( [facility]) cefdinir 300 MG Oral Capsule Cefdinir 300 MG Cefdinir 300 MG 07/13/2020 12:00:00 AM EDT suspended Cefdinir 300 MG eCW1 (Formerly [facility]) cefdinir 300 MG Oral Capsule Cefdinir 300 MG Cefdinir 300 MG 07/13/2020 12:00:00 AM EDT suspended Cefdinir 300 MG eCW1 (Formerly [facility]) cefdinir 300 MG Oral Capsule Cefdinir 300 MG Cefdinir 300 MG 07/13/2020 12:00:00 AM EDT suspended Cefdinir 300 MG eCW1 (Formerly [facility]) cefdinir 300 MG Oral Capsule Cefdinir 300 MG Cefdinir 300 MG 07/13/2020 12:00:00 AM EDT active Cefdinir 300 MG eCW1 (Formerly [facility]) cefdinir 300 MG Oral Capsule Cefdinir 300 MG Cefdinir 300 MG 07/13/2020 12:00:00 AM EDT suspended Cefdinir 300 MG eCW1 (Formerly [facility]) cefdinir 300 MG Oral Capsule Cefdinir 300 MG Cefdinir 300 MG 07/13/2020 12:00:00 AM EDT suspended Cefdinir 300 MG eCW1 (Formerly [facility]) cefdinir 300 MG Oral Capsule Cefdinir 300 MG Cefdinir 300 MG 07/13/2020 12:00:00 AM EDT suspended Cefdinir 300 MG eCW1 (Formerly [facility]) cefdinir 300 MG Oral Capsule Cefdinir 300 MG Cefdinir 300 MG 07/13/2020 12:00:00 AM EDT suspended Cefdinir 300 MG eCW1 (Formerly [facility]) cefdinir 300 MG Oral Capsule Cefdinir 300 MG Cefdinir 300 MG 07/13/2020 12:00:00 AM EDT active Cefdinir 300 MG eCW1 (Formerly [facility]) cefdinir 300 MG Oral Capsule Cefdinir 300 MG Cefdinir 300 MG 07/13/2020 12:00:00 AM EDT suspended Cefdinir 300 MG eCW1 (Formerly [facility]) cefdinir 300 MG Oral Capsule Cefdinir 300 MG Cefdinir 300 MG 07/13/2020 12:00:00 AM EDT suspended Cefdinir 300 MG eCW1 (Formerly [facility]) cefdinir 300 MG Oral Capsule Cefdinir 300 MG Cefdinir 300 MG 07/13/2020 12:00:00 AM EDT suspended Cefdinir 300 MG eCW1 (Formerly [facility]) cefdinir 300 MG Oral Capsule Cefdinir 300 MG Cefdinir 300 MG 07/13/2020 12:00:00 AM EDT suspended Cefdinir 300 MG eCW1 (Former[facility]) cefdinir 300 MG Oral Capsule Cefdinir 300 MG Cefdinir 300 MG 07/13/2020 12:00:00 AM EDT suspended Cefdinir 300 MG eCW1 (Formerly [facility]) cefdinir 300 MG Oral Capsule Cefdinir 300 MG Cefdinir 300 MG 07/13/2020 12:00:00 AM EDT suspended Cefdinir 300 MG eCW1 (Formerly [facility]) cefdinir 300 MG Oral Capsule Cefdinir 300 MG Cefdinir 300 MG 07/13/2020 12:00:00 AM EDT suspended Cefdinir 300 MG eCW1 (Formerly [facility]) cefdinir 300 MG Oral Capsule Cefdinir 300 MG Cefdinir 300 MG 07/13/2020 12:00:00 AM EDT suspended Cefdinir 300 MG eCW1 (Formerly [facility]) cefdinir 300 MG Oral Capsule Cefdinir 300 MG Cefdinir 300 MG 07/13/2020 12:00:00 AM EDT suspended Cefdinir 300 MG eCW1 (Formerly [facility]) cefdinir 300 MG Oral Capsule Cefdinir 300 MG Cefdinir 300 MG 07/13/2020 12:00:00 AM EDT suspended Cefdinir 300 MG eCW1 (Formerly [facility]) cefdinir 300 MG Oral Capsule Cefdinir 300 MG Cefdinir 300 MG 07/13/2020 12:00:00 AM EDT suspended Cefdinir 300 MG eCW1 (Formerly [facility]) cefdinir 300 MG Oral Capsule Cefdinir 300 MG Cefdinir 300 MG 07/13/2020 12:00:00 AM EDT suspended Cefdinir 300 MG eCW1 (Formerly [facility]) cefdinir 300 MG Oral Capsule Cefdinir 300 MG Cefdinir 300 MG 07/13/2020 12:00:00 AM EDT active Cefdinir 300 MG eCW1 (Formerly [facility]) cefdinir 300 MG Oral Capsule Cefdinir 300 MG Cefdinir 300 MG 07/13/2020 12:00:00 AM EDT suspended Cefdinir 300 MG eCW1 ([facility]ly [facility]) cefdinir 300 MG Oral Capsule Cefdinir 300 MG Cefdinir 300 MG 07/13/2020 12:00:00 AM EDT suspended Cefdinir 300 MG eCW1 (Formerly [facility]) cefdinir 300 MG Oral Capsule Cefdinir 300 MG Cefdinir 300 MG 07/13/2020 12:00:00 AM EDT active Cefdinir 300 MG eCW1 (Formerly [facility]) cefdinir 300 MG Oral Capsule Cefdinir 300 MG Cefdinir 300 MG 07/13/2020 12:00:00 AM EDT suspended Cefdinir 300 MG eCW1 ([facility]ly [facility]) cefdinir 300 MG Oral Capsule Cefdinir 300 MG Cefdinir 300 MG 07/13/2020 12:00:00 AM EDT suspended Cefdinir 300 MG eCW1 (Formerly [facility]) cefdinir 300 MG Oral Capsule Cefdinir 300 MG Cefdinir 300 MG 07/13/2020 12:00:00 AM EDT suspended Cefdinir 300 MG eCW1 ([facility]ly [facility]) cefdinir 300 MG Oral Capsule Cefdinir 300 MG Cefdinir 300 MG 07/13/2020 12:00:00 AM EDT suspended Cefdinir 300 MG eCW1 ([facility]ly [facility]) cefdinir 300 MG Oral Capsule Cefdinir 300 MG Cefdinir 300 MG 07/13/2020 12:00:00 AM EDT suspended Cefdinir 300 MG eCW1 (Formerly [facility]) cefdinir 300 MG Oral Capsule Cefdinir 300 MG Cefdinir 300 MG 07/13/2020 12:00:00 AM EDT suspended Cefdinir 300 MG eCW1 (Formerly [facility]) cefdinir 300 MG Oral Capsule Cefdinir 300 MG Cefdinir 300 MG 07/13/2020 12:00:00 AM EDT suspended Cefdinir 300 MG eCW1 ([facility]ly [facility]) cefdinir 300 MG Oral Capsule Cefdinir 300 MG Cefdinir 300 MG 07/13/2020 12:00:00 AM EDT suspended Cefdinir 300 MG eCW1 ([facility]) cefdinir 300 MG Oral Capsule Cefdinir 300 MG Cefdinir 300 MG 07/13/2020 12:00:00 AM EDT suspended Cefdinir 300 MG eCW1 (Former[facility]) cefdinir 300 MG Oral Capsule Cefdinir 300 MG Cefdinir 300 MG 07/13/2020 12:00:00 AM EDT suspended Cefdinir 300 MG eCW1 ([facility]ly [facility]) cefdinir 300 MG Oral Capsule Cefdinir 300 MG Cefdinir 300 MG 07/13/2020 12:00:00 AM EDT suspended Cefdinir 300 MG eCW1 (Former[facility]) cefdinir 300 MG Oral Capsule Cefdinir 300 MG Cefdinir 300 MG 07/13/2020 12:00:00 AM EDT suspended Cefdinir 300 MG eCW1 (Formerly [facility]) cefdinir 300 MG Oral Capsule Cefdinir 300 MG Cefdinir 300 MG 07/13/2020 12:00:00 AM EDT suspended Cefdinir 300 MG eCW1 (Formerly [facility]) cefdinir 300 MG Oral Capsule Cefdinir 300 MG Cefdinir 300 MG 07/13/2020 12:00:00 AM EDT suspended Cefdinir 300 MG eCW1 ([facility]) cefdinir 300 MG Oral Capsule Cefdinir 300 MG Cefdinir 300 MG 07/13/2020 12:00:00 AM EDT suspended Cefdinir 300 MG eCW1 ([facility]) cefdinir 300 MG Oral Capsule Cefdinir 300 MG Cefdinir 300 MG 07/13/2020 12:00:00 AM EDT active Cefdinir 300 MG eCW1 (Formerly [facility]) cefdinir 300 MG Oral Capsule Cefdinir 300 MG Cefdinir 300 MG 07/13/2020 12:00:00 AM EDT suspended Cefdinir 300 MG eCW1 (Formerly [facility]) cefdinir 300 MG Oral Capsule Cefdinir 300 MG Cefdinir 300 MG 07/13/2020 12:00:00 AM EDT suspended Cefdinir 300 MG eCW1 (Former[facility]) cefdinir 300 MG Oral Capsule Cefdinir 300 MG Cefdinir 300 MG 07/13/2020 12:00:00 AM EDT suspended Cefdinir 300 MG eCW1 (Formerly [facility]) carvedilol 6.25 MG Oral Tablet CARVEDILOL 04/18/2020 [...] type / Coverage type Policy ID Covered libertarian ID Covered libertarian's relationship to reinoso Policy [place] Plan Information [place]/307 [id number] SP [id number] MEDICARE - [place] [id number] S [id number] [place]/307 [id number] SP [id number] MEDICARE [id number] SP [id number] MEDICARE A [id number] Self [id number] [place]/307 [id number] SP [id number] [place]/307 [id number] SP [id number] [facility] H [id number] Self [id number] [place] [employer] [id number] S [id number] MEDICARE [id number] SP [id number] MEDICARE [id number] SP [id number] MEDICARE [id number] SP [id number] [facility] [id number] SP [id number] [facility] [id number] SP [id number] [facility] [id number] SP [id number] [facility] [id number] SP [id number] [facility] [id number] SP [id number] [facility] [id number] SP [id number] [facility] [id number] SP [id number] [facility] [id number] SP [id number] [facility] [id number] SP [id number] AARP U [id number] Self [id number] [facility] [id number] SP [id number] [facility] Part B [id number] Self [id number] Medicare [facility] Medicare Primary [id number] Self [id number] ANSI-Medicare Part B [id number] ANSI-Commercial [id number] ANSI-Medicare Part B [id number] ANSI-Commercial [id number] ANSI-Medicare Part B 4xzf87qj-7719-9fg1-m49g-np60h7799398 7wep60sk-0543-9iz9-d77u-oi07r2355344 ANSI-Medicare Part B p68j46eg-6x88-6039-9691-c6205h3558c7 z03m74ex-7e76-9014-2088-a3743x9124i6 ANSI-Commercial dl8g6nqw-682r-8o29-41i7-uujx546qczfy he4t2hmp-550k-2d52-74m2-mrkv721jxiqx ANSI-Commercial s4599y82-18x8-9351-3iu7-5ig7qj9447tr e6440f32-78r9-4613-3bk9-5zn6iy0141kf ANSI-Medicare Part B okeq283b-8e6x-8730-194f-648v598j74m3 jnto654x-1q8i-1459-232q-341g414b45p3 ANSI-Medicare Part B n8080180-1ccr-3f39-ut68-3dp803g0o6f0 o0800313-7aum-7f46-yy20-8vi280l3a5j9 ANSI-Commercial 0jr17g41-516y-4gf8-r270-fr0ea66663ls 8fu04e66-578s-7sc1-s291-re6zo57906jh ANSI-Commercial 0jhi8829-6s28-8p06-1145-k4m80i9l7ju6 2yoe4728-4m97-4p66-8887-h7b19s3n4dx7 ANSI-Commercial 11rh4c8v-z644-741h-ra6k-y43yx49a6466 13bm3p8z-u237-098k-mt5i-z77yr31z7453 ANSI-Medicare Part B ret9h15x-x93i-32co-9564-v8d56eu54abj gap7z67u-w17h-61qt-1559-b1u95gs89vpg ANSI-Commercial g00m0n7x-p913-23i3-7b69-nkdufi8ku93v l57u1r0g-z284-66u6-7t58-lfuspb3oo53w ANSI-Medicare Part B 4vrt7dcz-k7a0-02a3-m18h-0h39589gh71y 0cpi4ujm-m0q1-34o6-h31p-2b48823kh81d ANSI-Medicare Part B d6ms8k1b-d693-6l8v-gg13-w308s432n2s6 a0bi6d3k-e214-3s4k-xm48-v287w102t6s9 ANSI-Medicare Part B t0u8dh59-35h8-13i7-mi09-g18oq04x2q63 f9t2mf32-87z5-55c6-cw46-z68xe36w5h65 ANSI-Commercial 6esa0m07-688z-6rv2-9735-flf860ge5y65 9ovv6g41-312w-4mr7-5506-wgf109sw4i13 ANSI-Commercial x997z15x-0m0g-663m-1fa3-8r71aq4d7q3m w439b26o-5v7b-550o-3jm6-7u20ei3f7g9l ANSI-Commercial b403799k-16r3-9c21-7178-98e2d99p05ic k503119l-80n8-6z43-1187-80q1u89x32tg ANSI-Commercial 86dq425s-5x85-9jpv-8v6a-8500sqtf8k60 32fc168h-5s95-5pwl-0q6y-6698fylf4s71 ANSI-Medicare Part B 240ny01b-n5mu-3g58-9034-kx3j220gcxhg 887hz61b-f1nt-4l69-0745-tq7q882yjrkk ANSI-Medicare Part B 0ft2fw09-c8k9-6032-84k2-4p1809zn3t24 7au9dw84-m5q3-9486-17t9-0d5476kk4c93 ANSI-Medicare Part B 6209k71c-86ug-5748-hl4e-0h31agfy1592 9884u82s-79xd-5936-sz4y-6q07qrsg7048 ANSI-Commercial x9z8c398-f62i-54bl-984o-78id91553u95 s2u6b467-z23t-70hg-709r-23dv85978d05 ANSI-Medicare Part B 39076ft3-40n0-2t93-fmq9-03524l2m9450 75232dw9-12t2-0a71-ggl9-68314h6l4287 ANSI-Commercial 66v70269-jzs6-26iv-t1y2-30p58bj42ty4 35d99808-wcm8-38zr-e7x8-67v54fs61xr7 ANSI-Medicare Part B 7e5298a5-207h-743m-oalt-g2q344l75v1i 8m0100w4-230l-418m-txqz-u1b482k47h8e ANSI-Medicare Part B aoc28265-0247-57i2-r16i-8v194922866d crw76618-9260-30w1-m46u-4v941186190t ANSI-Commercial 37234z82-47md-4t9x-je6x-441l40kee8s9 48221j07-78du-4j5z-zh3q-723k68pxp6p0 ANSI-Commercial 22m40kv5-03x4-7w90-k42g-2e4il6362egm 09x75zn0-89v8-0d98-c27d-9f3uk7159oaq ANSI-Commercial 80k614vi-47w2-14mb-3985-q21rf9fz23d4 26w103ef-41r0-22jo-1280-n66ty8ne07y8 ANSI-Medicare Part B 87978t40-22zr-77m8-x1m1-fv4h775542d9 42389f56-27lc-64v3-w1i8-kg8c195170o7 ANSI-Commercial j9701xvq-7932-7nm6-2p7v-85uh5j971430 u0133osv-7067-4rc9-6a4a-62hk2m530948 ANSI-Medicare Part B 63w986mw-1981-4200-0d3k-3f94883872r3 11f240sp-3190-8157-4v8c-9a18912877y3 ANSI-Commercial 6105782q-88oz-50qj-bqm9-3ti04pfv22s9 3045114y-76ll-22rr-yvf9-5wh80avg46k1 ANSI-Commercial 5g838e54-7598-54w7-88w1-756x0r3oicl5 3k295t72-6292-73r1-87t6-353j7j0ryfp4 ANSI-Medicare Part B m926f0ih-xg55-2v66-69j2-88r96dn0395g l959l0ln-jq83-7q08-51y9-90u67ow6844t ANSI-Medicare Part B k7yge9ya-z5x2-08a5-bovx-pk12n54tay6q k9frr4hs-r1u2-99d0-tzas-lv66q61liu0i ANSI-Medicare Part B 0765592g-6k4b-90gs-4590-2779u0464q85 3140461l-7e4t-33mp-5514-8285c3318g96 ANSI-Medicare Part B 8fx5g3c6-5i7r-238z-n145-61us3q2cn130 0hr7i8g6-1h2r-286e-z213-78gr6f7ca841 ANSI-Commercial x8gy6h87-x853-6h00-n19f-p3c2k4z2g665 a7zm2a52-e709-2w84-n14a-c6w4s6c5d285 ANSI-Commercial l1a16dt6-s72i-2096-l14k-14d34i1833v1 l7r15me1-v32w-9783-g39q-34s85u0691t9 ANSI-Medicare Part B xl178187-554x-9sh2-w5y6-zg475jow27u3 se695591-656o-4js5-h9v6-fj506wyl35r9 ANSI-Medicare Part B 58269535-6pv2-25cm-375p-1s097c93na9m 15256057-7yx3-51au-763d-7e665a20ch1g ANSI-Commercial 839tp80i-7228-9vm8-e74d-0vz7n6pc530k 414nl31d-2503-4xg6-l63y-1xb0i1ge329t ANSI-Commercial uk438750-5381-415g-700i-7j9284u61677 cg984621-8244-539t-524l-5m7652z37066 ANSI-Commercial 3qu3zj11-4776-9983-2r00-x89068ygvi03 5eb7as19-3389-4086-2l71-j11272nhwp57 ANSI-Medicare Part B 4j68lasj-1ia5-3957-54g2-9x53kf12k8s1 5m05jbaf-8fz6-2375-72v3-5m40rc32s2x8 ANSI-Commercial 03glts76-k835-1831-7303-9x3x0j28n4u9 82ruxb69-a216-8066-2701-8o9z3d91l1k3 ANSI-Medicare Part B 7bvdtb2h-9838-0d06-9s12-g3314j7ikb44 2dcttp3h-1035-0n29-8j48-q5093h7pcd83 [facility] Part B [id number] Self [id number] Medicare [facility] Medicare Primary [id number] Self [id number] ANSI-Commercial ndp0v141-iv38-2205-ze2y-ci4598852k44 dza2i613-kh81-0005-ok3r-nb1055344m62 ANSI-Medicare Part B 2yxp221c-dzk1-1l90-ym0k-56s947uu392c 5ljd958j-ulo1-5w31-rj0m-65i511vn008l ANSI-Commercial 384v897m-526g-035k-073t-6w058789ns47 949o390o-520w-268b-276s-1i965308ih03 ANSI-Medicare Part B 8vz13a19-1ifg-249w-3719-461m154q8vy1 4ot62b90-8eyw-543g-3591-601j641n9cm3 ANSI-Medicare Part B d7qa18mm-h976-0765-9669-14f729226723 o9ob43yl-b055-0176-5428-21r199077441 ANSI-Commercial lujz3msi-83s7-450z-1a34-23fg8i89me78 coab4qdv-55b6-597h-5a67-99qr7j47zz35 ANSI-Medicare Part B 40380223-82ux-8h0v-2o41-i4935it854p2 74948370-00hv-8p8w-2s86-x4013ue258j5 ANSI-Commercial 599hmj72-s115-0t38-5l1r-56x2716be6w5 901hhx51-u977-6n96-0r5t-62c6519bm2r9 ANSI-Medicare Part B kq04dm7y-4x71-3e07-cx5d-1q52o0cj522l er68sy9s-9m24-3r34-zj8q-8z69e2wl568k ANSI-Commercial mn09obp8-0r1u-55j4-25n9-d8b19sqo7i8v ah59reo0-2t4b-73y7-01g6-n5k86dhp9w7q ANSI-Commercial 6t80qmo5-2g53-68t5-8421-9i7u4re62d87 7e07qpi5-9z64-16n8-0221-3i6l9ut71d82 ANSI-Medicare Part B 188d7t24-94c4-8746-67x6-46hl7z7c2u0i 392k2x53-81x9-1714-42y1-00ue3h3m8r2d ANSI-Medicare Part B 0cruj9p8-b455-656w-o533-i0021w0824k4 2uhot2s2-q323-500e-c941-t6893n9055l7 ANSI-Commercial td8v9059-63kc-5lv4-8357-9wh5mg8ck163 vb8e1670-75le-8zh3-8345-8fu6ne2kr061 ANSI-Medicare Part B 32n65q9u-2om9-61c2-948l-7huo11254186 03r79o2f-8ps8-04u4-587k-0xkf35504299 ANSI-Commercial 8h2941h1-588h-2h9i-b6zr-e611z709q893 1b5508v2-304s-7v3n-u2br-y753t780k089 ANSI-Medicare Part B 9p018l20-l2pg-000o-b271-5ba181211a1p 4s550m67-q7iy-505w-p429-6bm265143g1w ANSI-Commercial 7fh58e1a-3124-62uc-d2zp-dwq994953l5h 4th95f2i-7160-20wf-r1us-ffl480405e5w ANSI-Commercial o8232567-712l-3848-89z4-3qd69j033cnk q7767762-545j-1394-74p4-7jj41t027zei ANSI-Medicare Part B fpo72036-06q0-649v-l736-g04188k5774n lkc38486-79t5-935e-h263-i30458v2459o ANSI-Medicare Part B 956795n7-79n9-748a-r8n5-ch1476ahw6t1 204707q5-78i3-574d-t8z4-kw8651ypt1x8 ANSI-Medicare Part B 3ic1289p-094r-66r8-8t4r-pdu2tt338941 9pq0849l-759i-54t9-0w7n-nxx7xo382624 ANSI-Commercial 4712cj36-a07n-8sz3-0km6-5f2zob680v11 2936la36-o30n-0fi0-4xu0-2d1ibc891y66 ANSI-Commercial 3o4673p7-210p-7097-0nwr-9219d673504j 1d2810g0-887b-9224-4nca-1656j519301w ANSI-Commercial l63et249-2je0-47r2-k72q-hy6i7s374u0e v60fl924-4bg0-05j0-d85m-eu9f2o226r1g ANSI-Medicare Part B 4396t3i2-9932-530v-1257-sv2c7u2899f9 6856y7x7-5338-187w-9138-it6t3b5062m7 ANSI-Medicare Part B dw245251-2660-7363-6290-18x6022k2q0u qf484434-1206-6527-9917-15t2403c5o2b ANSI-Commercial ebme415v-87v2-500b-918h-3i1wn2qvn8d9 edou701v-62q5-727w-600t-8n8xo8olu2w4 ANSI-Commercial p2416yo4-9l0o-65sf-c39l-84r645631sn1 i7766dt5-5f2c-51lz-x68l-42i440432ka3 ANSI-Medicare Part B 6336048o-14nd-2cwy-5t66-9v07oan4nyu7 8117417j-39kc-1tev-5t10-8e62blq7lls8 ANSI-Commercial fqs94p73-6300-6i57-0k28-qy59l14610v7 bus25h67-0663-9j77-3j54-en50b88998f9 ANSI-Medicare Part B 214zkeqg-5518-3e302n53-vb90-15q764a777v2 402hoxkv-7542-8w839o39-zu09-08t098o498j1 ANSI-Commercial 0qxpc587-r551-7gnk-5v81-h3708tz9v035 1qdtk346-l137-0igk-9a99-l0236ff4x962 ANSI-Medicare Part B 7581ts1d-8778-7c28-7w46-u873754c4027 4527vl3j-5278-6y20-8v20-m659102k5075 ANSI-Commercial 14381067-a382-281w-mpv9-4r9i5yd00hu5 49243585-h682-294y-nze8-9w7p9dw40gg0 ANSI-Medicare Part B 9214q32s-4722-479x-6854-aaxv5e0q5a56 1722w82j-6613-934u-5344-cszp9k7k1j77 ANSI-Medicare Part B 4ymm197l-0p08-9h33-y40t-1t67my30n043 2grg806u-6j94-7w70-x64q-9z19ej15y234 ANSI-Commercial 55541sa4-6ku4-2853-b30y-i49233021254 54363tn5-2nk5-6766-e40o-w27612194261 ANSI-Commercial 59hejy04-648v-93k0-181b-81qxh4678i52 43numz02-614e-90h3-402h-41mmn9536j86 ANSI-Medicare Part B v4149348-c9b2-1437-iq81-53s54x1j8b69 q2434686-r6a3-3021-nr17-11e62u1t7s98 ANSI-Commercial 9y6l4b0e-7w35-9696-7av1-3a07at9k673z 7l9k4q0i-5t92-9778-7xo2-7u43cs7f105x ANSI-Commercial 4u66120h-vw89-8974-v87d-4530848035jm 6f94802m-yf10-6798-d66h-5092589141ut ANSI-Medicare Part B 48qgli90-6vv8-07x0-728e-6l0288n8928x 36otlx32-2if2-98w1-624k-5s8657u1077c ANSI-Medicare Part B 22nvn9i2-6903-66uo-s424-3u44lwq4917z 37uwm8y5-5181-73bz-k379-6d62zoi1345w ANSI-Commercial 3f425008-nid6-5278-lbxv-31tb87502997 2b198465-dad1-6197-potm-23sa92788911 ANSI-Medicare Part B 3455cr14-7ld5-74b0-8swt-5rr5p93056i0 7733oc11-7fd2-57y7-8yzx-7kg9c12092z4 ANSI-Commercial 4977b8e5-f822-940f-n393-45xtg0e7z5gw 3086i9y5-o096-511q-c108-11ygb4c6d8xx ANSI-Medicare Part B 86g9s22v-q8j5-654w-r329-5hi2d5o7h1g0 29y4c93p-t8r1-361z-x451-2gl0i7i1v8b9 ANSI-Commercial 8k41139n-07q0-0t24-l9r4-1f1k8w7r2809 1e16345t-47m8-4k45-w1t3-2k4w2r1b9767 ANSI-Medicare Part B 242q331f-1yl5-8xk0-469c-16p2k06z832r 661n935r-3hx1-1js5-380e-33o3b02n227c ANSI-Commercial e217207p-11m9-9g6y-mn91-ujqz74935o9u v593536o-20e7-0a1m-oo78-xyla10103c1a ANSI-Medicare Part B bzq60016-ls2c-06r0-48n7-5yc2xq241855 vdf22476-fd4a-28i6-35a7-6pb9ly629988 ANSI-Commercial 5ejp1s6h-jnm3-2953-s04p-0zv274lq4p44 1ahm8b5w-qun1-9065-a88k-7la841ry3q43 ANSI-Medicare Part B 1i3n4699-20z1-16u3-20n0-7yw722i83540 2k0s0794-63j1-97b6-70y5-7ne500y43233 ANSI-Commercial 7367d702-u665-1xv1-nev1-93172174o975 4683h304-m544-8hx5-nhv8-58269170o270 ANSI-Medicare Part B 675d0ru7-c0nw-347p-1xs4-3xc5178g70ku 603k0ub9-o2vf-761k-3kc9-6jj0683c53mp ANSI-Medicare Part B 79rfhox6-d818-19m3-u287-a60m2861384r 44hlesf2-v749-55t3-z654-z78b1334647u ANSI-Commercial 3166zf38-fvw5-1549-yj10-3f6102xp2c69 1743an18-imh1-5754-ff23-8u7425ow8y13 ANSI-Commercial ez6n0kvs-e442-9moy-ke29-ac424z65gq25 kz2j7npy-i744-1xsf-sp70-kn812z41dz23 MEDICARE [id number] SP [id number] A MEDICARE C [id number] S [id number] A Medicare Natl Gov't Servi Medicare Primary .[id number] Self [facility] Part [id number] Self MEDICARE [id number] SP [id number] T AARP O [id number] S [id number] MEDICARE [id number] SP [id number] A [employer] Commercial [id number] Self Medicare Natl Gov't Servi Medicare Primary .[id number] Self [place] BCBS B [id number] S VYE [id number] BCBS [place] PPO 302/307 [id number] SP [id number] Medicare [facility] Part B [id number] Self [place] [employer] [id number] Self MEDICARE [id number] SP [id number] T MEDICARE S [id number] S [id number] T [facility] [id number] SP [id number] MEDICARE [id number] SP [id number] [facility] [id number] SP [id number] [facility] OPTIONS [id number] S [id number] [facility] MEDICARE DIVISION [id number] S [id number] MEDICARE - [place] [id number] S [id number] MEDICARE C [id number] S [id number] AARP O [id number] S [id number] [place]ID[place] JE PART B C [id number] S [id number] [place]IAN JE PART B C [id number] S [id number] ANSI-Commercial [id number]-[id number] 09621211-3k81-27d2-6945-c7541579lw82 ANSI-Medicare Part B z0634g83-7932-179v-u3x1-05b2901vx1x8 a6396u50-7545-188g-t7k8-63i1773sy1b5 ANSI-Commercial m69u67f8-6h54-6snw-46w0-946p5550gzg1 d01e27j9-4s66-2vvz-06z8-863r0423erx7 ANSI-Medicare Part B ur30m9x4-3042-4y32-3805-dis305n9y289 zn06k5b0-2624-7h84-2351-abw040u7v582 [facility] Part B [id number] Self [id number] [place] Medicare Primary [id number] Self [id number] ANSI-Medicare Part B 64xco9d0-4674-18jm-[id number] 81muk5q2-4554-20gs-as75-6o875x03517v ANSI-Medicare Part B [id number]-978t-4586-72f8-29l1s85fo526 00b76r6a-740d-7694-95q9-92h3l37up495 ANSI-Commercial 9204k5w2-9213-7e42-46v2-651f9j5992s7 7621r2m7-3549-7z53-56d4-632z6c6202c7 ANSI-Commercial kxcb3490-kv5q-5pxb-p21l-59772lqkm65b umji6088-dr8i-5exm-x95p-54004wwpu01k ANSI-Commercial 37899m95-7m43-985n-3vcw-t20k3o32piq7 58180p65-1i74-697c-3gtd-i60p1u15iry7 ANSI-Medicare Part B [id number]-38bn-04090969i8v3 7d6wu950-w3p3-1a9a-25wo-17337757e8c9 ANSI-Commercial kuu9z737-xii1-160u-28j3-305x757r4697 wlt3s938-fnu2-612s-57b5-140o661w4633 ANSI-Medicare Part B [id number]-o958-108m-1418-m1683d1jy167 r0h46708-m415-487h-2030-y2763m5cv245 Problems, Conditions, and Diagnoses Code Display Name Description Problem Type Effective Dates Data Source(s) D64.9 Anemia, unspecified Anemia, unspecified Diagnosis 0 05/25/2021 10:44:00 AM EDT [facility] M79.661 Pain in right lower leg PAIN IN RIGHT LOWER LEG Diagno sis 03/21/2021 01:48:00 PM EDT [facility] L89.622 Pressure ulcer of heel Pressure ulcer of left heel, st age 1 Problem 05/31/2021 12:00:00 AM EDT eCW1 (Formerly [facility]) [id number] Disorder of thyroid gland Disorder of thyroid gland Pr oblem 05/18/2021 12:00:00 AM EDT MEDLIZ ([facility]) 07603040 Essential hypertension Essential hypertension Problem 05/12/2021 12:00:00 AM EDT [facility]ENT ([facility]) 51760047 Pulmonary embolism Pulmonary embolism Problem 12:00:00 AM EDT [facility] ([facility]) 99585334 Hyperlipidemia Hyperlipidemia Problem 05/12/2021 12:00: 00 AM EDT [facility] ([facility]) [id number] Deep venous thrombosis of lower extremit y Deep venous thrombosis of lower extremity Problem 05/12/2021 12:00:00 AM EDT [facility] ([facility]) N39.498 [id number] Other urinary incontinence Problem 12:00:00 AM EDT eCW1 (Formerly [facility]) R39.15 [id number] Urgency of urination Problem 04/14/2021 12:0 0:00 AM EDT eCW1 (Formerly [facility]) 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 [facility] 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 mellitus Problem 04/11/2021 12:00:00 AM EDT [facility] ([facility] B35.1 Onychomycosis Onychomycosis Problem 04/11/2021 12:00:00 AM EDT [facility] ([facility] E11.621 Type 2 diabetes mellitus with ulcer Type 2 diabe shea mellitus with ulcer Problem 04/11/2021 12:00:00 AM EDT [facility] ([facility] L89.623 [id number] Pressure ulcer of left heel, stage 3 Prob angelica 04/04/2021 12:00:00 AM EDT eCW1 ([facility]) L89.612 [id number] Pressure ulcer of right heel, stage 2 Pro blem 03/30/2021 12:00:00 AM EDT eCW1 (Formerly [facility]) L89.622 [id number] Decubitus ulcer of left heel, stage 2 Pro blem 03/21/2021 12:00:00 AM EDT eCW1 (Formerly [facility]) N39.41 Urge incontinence of urine Urge incontinence Problem 02/06/2021 12:00:00 AM EDT eCW1 (Formerly [facility]) N39.41 Urge incontinence of urine Urge incontinence of urine Problem 12/22/2020 12:00:00 AM EST eCW1 (Formerly [facility]) N39.0 Urinary tract infectious disease Frequent UTI Problem 09/23/2020 12:00:00 AM EST eCW1 (Formerly [facility]) Surgeries/Procedures Procedure Description Date Indications Data Source(s) INSJ TEMP NDWELLG BLADDER CATHETER SIMPLE 07/27/2021 1 2:00:00 AM EDT eCW1 (Formerly [facility]) DEBRIDEMENT NAIL ANY METHOD 06/12/2021 12:00:00 AM EDT [facility] FINE NEEDLE ASPIRATION W/O IMAGING GUIDANCE 05/16/2021 12:00:00 AM EDT eCW1 (Formerly [facility]) FINE NEEDLE ASPIRATION W/O IMAGING GUIDANCE 05/09/2021 12:00:00 AM EDT eCW1 (Formerly [facility]) FINE NEEDLE ASPIRATION W/O IMAGING GUIDANCE 05/02/2021 12:00:00 AM EDT eCW1 (Formerly [facility]) FINE NEEDLE ASPIRATION W/O IMAGING GUIDANCE 04/25/2021 12:00:00 AM EDT eCW1 (Formerly [facility]) FINE NEEDLE ASPIRATION W/O IMAGING GUIDANCE 04/18/2021 12:00:00 AM EDT eCW1 (Formerly [facility]) FINE NEEDLE ASPIRATION W/O IMAGING GUIDANCE 04/04/2021 12:00:00 AM EDT eCW1 ([facility]ly [facility]) DEBRIDEMENT NAIL ANY METHOD 04/03/2021 12:00:00 AM [...] Vision Screen 10/03/2020 12:00:00 AM EST eCW1 (Formerly [facility]) uro PVR (Post Voiding Residual) Bladder Scan 12:00:00 AM EST eCW1 (Formerly [facility]) Results ID Date Data Source [id number] 05/30/2021 09:03:00 PM EDT [facility] Hematopathology Report See Addendum Camille Navarreteame: ARBEN QUINTEROMRN: [id number] Number: [id number] Date: 05/25/2021 09:30Received Date: 05/26/2021 14:31Physician(s): ESTEBAN TSAI MD VYAS, SHIKHAR G,[facility] [place] [facility]) ReceivedA: Bone Marrow, Flow Cytometry; RECEIVED 1 [...] rendered thefinal diagnosis. Addendum 06/05/2021 Cytogenetics report [id number] shows a normal karyotype. The result neitherconfirms, nor refutes a myelodysplastic syndrome, as close to half of MDSpatients present with normal karyotype. Addendum Electronically Signed By: Reina Joshi M.D. 06/05/2021 11:13 ProceduresFlow Cytometry Date Ordered:05/26/2021 Status: Signed Out05/30/2021 InterpretationPERIPHERAL BLOOD: CBC performed at [facility] [address] [place] [address] on 05/25/21WBC *11.8 K/uLRBC *3.24 M/uLHgb *9.9 g/dLHct 29.3 %MCV 90.4 fLMCH 30.6 pgMCHC 33.8 g/dLRDW *16.7 %Platelets 190 K/ul A peripheral blood film is reviewed.BONE MARROW ASPIRATE:Differential Count (100 cells):12 % Erythroid Precursors 1 % Irwlmv57 % N. Doukmtayti20 % N. Metamyelocytes and Band Forms37 % Neutrophils 3 % Eosinophils 5 % Lymphocytes 1 % Plasma Cells--------100 % Lymphoid Panel: [facility]21 2145 [id number] following markers were assayed: CD45 (gate), CD2, CD3, CD4, CD5, CD7,CD8, CD10, CD19, CD20, CD38, CD56, CD57, [place], and Lambda.# events: [id number]: 94%Flow Cytometry Differential (CD45/ SSC)Lymphocyte [place]: 16%CD45 dim [place]: 1%Monocyte [place]: 4%Granulocyte [place]: 71%Nucleated/Erythroid [place]: 2%The lymphocyte gate showsB-cells (CD19): 4%T- cells (CD3): 82%NK-cells (CD3-/CD56+): 11%[place]/Lambda Ratio: 1.2CD4/CD8 Ratio: 0.7Results: (expressed as % of lymphocyte gate)T-cell Markers: CD2 = 91, CD3 = 82, CD3/CD4 = 32, CD3/CD8 = 45, CD5 = 80,CD7 = 90, CD3/57 = 21B-cell markers: [place] = 3, Lambda = 2, CD19 = 4, CD20 = 4, CD19/10 = 0,CD19/CD5 = 0, CD38/CD20 = 3Light chain as % of B-Cells: CD19/[place] = 41, CD19/Lambda = 32CD19/CD5/[place] = 0, CD19/CD5/Lambda = 0CD19/CD10/[place] = 1, CD19/CD10/Lambda = 0NK cell Markers: CD56 = 17, CD57 = 25Other Markers: CD10 = 1, CD38 = 53Results: (expressed as % of CD45 dim gate)T-cell Markers: CD2 = 17, CD3 = 5, CD3/CD4 = 0, CD3/CD8 = 2, CD5 = 8, CD7= 17, CD3/57 = 0B-cell markers: [place] = 0, Lambda = 2, CD19 = 2, CD20 = 0, CD19/10 = 1,CD19/CD5 = 0, CD38/CD20 = 0Light chain as % of B-Cells: CD19/[place] = 8, CD19/Lambda = 1CD19/CD5/[place] = 1, CD19/CD5/Lambda = 1CD19/CD10/[place] = 5, CD19/CD10/Lambda = 5NK cell Markers: CD56 = 8, CD57 = 1Other Markers: CD10 = 11, CD38 = 92MDS Panel of [facility] MDS 21 2145 [id number] following markers were assayed: CD45 (gate), CD7, CD10, CD11b, CD13,CD14, CD16, CD33, CD34, CD56, CD64, CD71, CD117, and glycophorin A.# events: [id number] NOTE: Routinely a minimum of 500,000 events are collectedin each panel tube. Due to sample cellularity and/or processing thisnumber was not achievable for this sample.Viability: 92%Flow Cytometry Differential (CD45/SSC):Lymphocyte [place]: 12%CD34/CD117 Blast [place]: 0.9%Monocyte [place]: 4%Granu locyte [place]: 64%NRBC [place]: 3%MDS PanelAntibody Population Patient NormalOrthogonal LightScatter Neutrophils High ExgeXI42 Granulocytes Moderate MfemabvqQC54 Granulocytes Present PufzdmfPO72 Granulocytes Absent RbmbpwZV44/CD14 Monocytes Absent SryvjuUI01/CD117 Blasts Not Increased Not IncreasedCD7 CD34+ Blasts Absent CujctuMS66 Maturing Granulocytes Present LimvbpgCT67 Maturing Granulocytes Variable HuyzxibHT55/CD13 Pattern Myeloid Cells Abnormal Pattern Normal SwpsnmoHK25/CD11b Pattern Myeloid Cells Abnormal Pattern Normal KtruaczQC51/Glycophorin A Glycophorin+ Red Cells Low to High [...] were developed and theirperformance characteristics determined by [facility] Pathology department.They have not been cleared or approved by the [place] Food and DrugAdmini stration. The FDA has determined that such clearance or approval isnot necessary. Name Value Range Interpretation Code Description Data Leia rce(s) Supporting Document(s) ID Date Data Source [id number] 06/02/2021 01:09:00 PM [facility] Cytogenetics ReportName: ARBEN QUNITEROMRN: [id number] Number: [id number] Date: 05/25/2021 00:00Received Date: 05/26/2021 14:47Physician(s): ESTEBAN TSAI MD VYAS, SHIKHAR G,MDSpecimen(s) ReceivedA: Bone Marrow-MDS FISH and KaryoClinical Nwmsqwg43-qfrl-pvz patient with metastatic rectal cancer s/p chemotherapy,leukocytosis, [...] Rogers MD, PhD AttendingPathologist 06/02/2021 13:09:31Gross DescriptionChromosome Lqueikud93,XX[11] DescriptionA normal female chromosome complement was observed [...] rce(s) Supporting Document(s) ID Date Data Source [id number] 03/23/2021 11:18:00 AM EDT [facility] Name Value Range Interpretation Code Description Data Leia rce(s) Supporting Document(s) SARS coronavirus 2 RNA [Presence] in Res piratory specimen by RAY with probe detection NEGATIVE [facility] This lab was ordered by [facility] a nd reported by [facility]. ID Date Data Source [id number] 03/21/2021 02:13:00 PM EDT [facility] [...] rce(s) Supporting Document(s) ID Date Data Source [id number] 02/22/2021 08:54:00 AM EDT [facility] Name Value Range Interpretation Code Description Data Leia rce(s) Supporting Document(s) SARS-CoV-2 (COVID 19) NEGATIVE - SARS-CoV-2 (COVID19) [facility] This lab was ordered by [facility] a nd reported by [facility]. ID Date Data Source [id number] 02/14/2021 05:12:00 PM EDT [facility] Name Value Range Interpretation Code Description Data Leia rce(s) Supporting Document(s) SARS coronavirus 2 RNA [Presence] in Res piratory specimen by RAY with probe detection NEGATIVE [facility] This lab was ordered by [facility] a nd reported by [facility]. ID Date Data Source [id number] 01/25/2021 10:51:00 AM EDT [facility] Name Value Range Interpretation Code Description Data Leia rce(s) Supporting Document(s) SARS coronavirus 2 RNA [Presence] in Res piratory specimen by RAY with probe detection NEGATIVE [facility] This lab was ordered by [facility] a nd reported by [facility]. ID Date Data Source URINE CULTURE 08/24/2020 12:00:00 AM EST eCW1 (Counts include 234 beds at the [facility]) Name Value Range Interpretation Code Description Data Leia rce(s) Supporting Document(s) Laboratory studies (set) URINE CULTU RE eCW1 (Formerly [facility]) ID Date Data Source UA URINALYSIS 08/24/2020 12:00:00 AM EST eCW1 (Counts include 234 beds at the [facility]) Name Value Range Interpretation Code Description Data Leia rce(s) Supporting Document(s) UA URINALYSIS eCW1 (Formerly [facility]) ID Date Data Source Urinalysis, no micro 07/28/2020 03:17:25 AM EDT eCW1 ([facility]) Name Value Range Interpretation Code Description Data Leia rce(s) Supporting Document(s) 1.020 Spec gravity eCW1 ([facility]) 5 pH eCW1 ([facility]) TRACE Leukocyte eCW1 ([facility]) POSITIVE Nitrate eCW1 ([facility]) 50 Glucose [facility]1 ([facility] Health) 30 Protein eCW1 ([facility]) NEG Ketones eCW1 ([facility]) NORMAL Urobili eCW1 ([facility]) +1 Bilirubin eCW1 ([facility]) 250 Blood eCW1 ([facility]) Internal QC Acceptable (Y/N) e CW1 (Formerly [facility]) ID Date Data Source RESPIRATORY PANEL 07/14/2020 08:21:29 AM EDT eCW1 (Counts include 234 beds at the [facility]) Name Value Range Interpretation Code Description Data Leia rce(s) Supporting Document(s) This respiratory PCR panel detects Influenza A H1, H3 and RESPIRATORY PANEL eCW1 (Formerly [facility]) Procedure Social History Code Duration Value Status Description Data Source(s ) Smoking 07/27/2021 12:00:00 AM EDT Former Smoker completed Former Smoker eCW1 (Formerly [facility]) Smoking 07/24/2021 12:00:00 AM EDT Former Smoker completed Former Smoker eCW1 (Formerly [facility]) Smoking 07/24/2021 12:00:00 AM EDT Former Smoker completed Former Smoker eCW1 (Formerly [facility]) Smoking 07/07/2021 12:00:00 AM EDT Former Smoker completed Former Smoker eCW1 (Formerly [facility]) Smoking 07/07/2021 12:00:00 AM EDT Former Smoker completed Former Smoker eCW1 (Formerly [facility]) Smoking 05/31/2021 12:00:00 AM EDT Former Smoker completed Former Smoker eCW1 (Formerly [facility]) Smoking 05/23/2021 12:00:00 AM EDT Former Smoker completed Former Smoker eCW1 (Formerly [facility]) Smoking 05/23/2021 12:00:00 AM EDT Former Smoker completed Former Smoker eCW1 (Formerly [facility]) Smoking 05/23/2021 12:00:00 AM EDT Former Smoker completed Former Smoker eCW1 (Formerly [facility]) Smoking 05/23/2021 12:00:00 AM EDT Former Smoker completed Former Smoker eCW1 (Formerly [facility]) Smoking 05/19/2021 12:00:00 AM EDT Former Smoker completed Former Smoker eCW1 (Formerly [facility]) Smoking 05/19/2021 12:00:00 AM EDT Former Smoker completed Former Smoker eCW1 (Formerly [facility]) Smoking 05/18/2021 12:00:00 AM EDT Patient is a former smoker completed Patient is a former smoker MEDENT ([facility]) Smoking 05/16/2021 12:00:00 AM EDT Former Smoker completed Former Smoker eCW1 (Formerly [facility]) Smoking 05/09/2021 12:00:00 AM EDT Former Smoker completed Former Smoker eCW1 (Formerly [facility]) Smoking 05/09/2021 12:00:00 AM EDT Former Smoker completed Former Smoker eCW1 (Formerly [facility]) Smoking 05/09/2021 12:00:00 AM EDT Former Smoker completed Former Smoker eCW1 (Formerly [facility]) Smoking 05/02/2021 12:00:00 AM EDT Former Smoker completed Former Smoker eCW1 (Formerly [facility]) Smoking 04/27/2021 12:00:00 AM EDT Former Smoker completed Former Smoker eCW1 (Formerly [facility]) Smoking 04/27/2021 12:00:00 AM EDT Former Smoker completed Former Smoker eCW1 (Formerly [facility]) Smoking 04/27/2021 12:00:00 AM EDT Former Smoker completed Former Smoker eCW1 (Formerly [facility]) Smoking 04/18/2021 12:00:00 AM EDT Former Smoker completed Former Smoker eCW1 (Formerly [facility]) Smoking 04/18/2021 12:00:00 AM EDT Former Smoker completed Former Smoker eCW1 (Formerly [facility]) Smoking 04/04/2021 12:00:00 AM EDT Former Smoker completed Former Smoker eCW1 (Formerly [facility]) Smoking 04/04/2021 12:00:00 AM EDT Former Smoker completed Former Smoker eCW1 (Formerly [facility]) Smoking 03/23/2021 12:00:00 AM EDT Former Smoker completed Former Smoker eCW1 (Formerly [facility]) Smoking 03/23/2021 12:00:00 AM EDT Former Smoker completed Former Smoker eCW1 (Formerly [facility]) Smoking 03/21/2021 12:00:00 AM EDT Former Smoker completed Former Smoker eCW1 (Formerly [facility]) Smoking 03/21/2021 12:00:00 AM EDT Former Smoker completed Former Smoker eCW1 (Formerly [facility]) Smoking 02/27/2021 12:00:00 AM EDT Former Smoker completed Former Smoker eCW1 (Formerly [facility]) Smoking 02/27/2021 12:00:00 AM EDT Former Smoker completed Former Smoker eCW1 (Formerly [facility]) Smoking 02/27/2021 12:00:00 AM EDT Former Smoker completed Former Smoker eCW1 (Formerly [facility]) Smoking 02/27/2021 12:00:00 AM EDT Former Smoker completed Former Smoker eCW1 (Formerly [facility]) Smoking 02/27/2021 12:00:00 AM EDT Former Smoker completed Former Smoker eCW1 (Formerly [facility]) Smoking 02/06/2021 12:00:00 AM EDT Former Smoker completed Former Smoker eCW1 (Formerly [facility]) Smoking 02/06/2021 12:00:00 AM EDT Former Smoker completed Former Smoker eCW1 (Formerly [facility]) Smoking 02/06/2021 12:00:00 AM EDT Former Smoker completed Former Smoker eCW1 (Formerly [facility]) Smoking 02/06/2021 12:00:00 AM EDT Former Smoker completed Former Smoker eCW1 (Formerly [facility]) Smoking 12/22/2020 12:00:00 AM EST Former Smoker completed Former Smoker eCW1 (Formerly [facility]) Smoking 12/22/2020 12:00:00 AM EST Former Smoker completed Former Smoker eCW1 (Formerly [facility]) Smoking 12/22/2020 12:00:00 AM EST Former Smoker completed Former Smoker eCW1 (Formerly [facility]) Smoking 12/22/2020 12:00:00 AM EST Former Smoker completed Former Smoker eCW1 (Formerly [facility]) Smoking 10/18/2020 12:00:00 AM EST Former Smoker completed Former Smoker eCW1 (Formerly [facility]) Smoking 10/18/2020 12:00:00 AM EST Former Smoker completed Former Smoker eCW1 (Formerly [facility]) Smoking 10/18/2020 12:00:00 AM EST Former Smoker completed Former Smoker eCW1 (Formerly [facility]) Smoking 10/18/2020 12:00:00 AM EST Former Smoker completed Former Smoker eCW1 (Formerly [facility]) Smoking 09/23/2020 12:00:00 AM EST Former Smoker completed Former Smoker eCW1 (Formerly [facility]) Smoking 09/23/2020 12:00:00 AM EST Former Smoker completed Former Smoker eCW1 (Formerly [facility]) Smoking 09/23/2020 12:00:00 AM EST Former Smoker completed Former Smoker eCW1 (Formerly [facility]) Smoking 08/24/2020 12:00:00 AM EST Former Smoker completed Former Smoker eCW1 (Formerly [facility]) Smoking 08/24/2020 12:00:00 AM EST Former Smoker completed Former Smoker eCW1 (Formerly [facility]) Smoking 08/24/2020 12:00:00 AM EST Former Smoker completed Former Smoker eCW1 (Formerly [facility]) Smoking 07/13/2020 12:00:00 AM EDT Former Smoker completed Former Smoker eCW1 (Formerly [facility]) Smoking 07/13/2020 12:00:00 AM EDT Former Smoker completed Former Smoker eCW1 (Formerly [facility]) Smoking 07/13/2020 12:00:00 AM EDT Former Smoker completed Former Smoker eCW1 (Formerly [facility]) Smoking 07/13/2020 12:00:00 AM EDT Former Smoker completed Former Smoker eCW1 (Formerly [facility]) Smoking 07/13/2020 12:00:00 AM EDT Former Smoker completed Former Smoker eCW1 (Formerly [facility]) Vital Signs ID Date Data Source UNK Name Value Range Interpretation Code Description Data Source(s) Heart rate 98 /min 98 /min eCW1 ([facility]) Body weight 181 [lb_av] 181 [lb_av] eCW1 (Count includes the [facility]) Respiratory rate 18 /min 18 /min eCW1 ([facility]) Body weight 82.1 kg 82.1 kg eCW1 (Counts include 234 beds at the [facility]) Body height 61.5 [in_i] 61.5 [in_i] eCW1 (Count includes the [facility]) Body temperature 97.3 [degF] 97.3 [degF] eCW1 ( [facility]) Body mass index (BMI) [Ratio] 33.64 kg/m2 33.64 kg/m2 eCW1 (Formerly [facility]) Systolic blood pressure 124 mm[Hg] 124 mm[Hg] e CW1 (Formerly [facility]) Diastolic blood pressure 62 mm[Hg] 62 mm[Hg] eCW1 (Formerly [facility]) Body weight 182 [lb_av] 182 [lb_av] eCW1 (Count includes the [facility]) Heart rate 86 /min 86 /min eCW1 ([facility]) Respiratory rate 18 /min 18 /min eCW1 ([facility]) Body temperature 97.5 [degF] 97.5 [degF] eCW1 ( [facility]) Systolic blood pressure 122 mm[Hg] 122 mm[Hg] e CW1 ([facility]ly [facility]) Diastolic blood pressure 62 mm[Hg] 62 mm[Hg] eCW1 (Formerly [facility]) Body weight 82.55 kg 82.55 kg W1 (Counts include 234 beds at the [facility]) Body height 61.5 [in_i] 61.5 [in_i] eCW1 (Count includes the [facility]) Body mass index (BMI) [Ratio] 33.83 kg/m2 33.83 kg/m2 eCW1 (Formerly [facility]) Body weight 186 [lb_av] 186 [lb_av] eCW1 (Count includes the [facility]) Body weight 84.37 kg 84.37 kg eCW1 (Counts include 234 beds at the [facility]) Body height 61.5 [in_i] 61.5 [in_i] eCW1 (Count includes the [facility]) Body mass index (BMI) [Ratio] 34.57 kg/m2 34.57 kg/m2 W1 ([facility]) Heart rate 85 /min 85 /min eCW1 ([facility]) Respiratory rate 19 /min 19 /min eCW1 ([facility]) Body temperature 97.2 [degF] 97.2 [degF] eCW1 ( [facility]) Systolic blood pressure 136 mm[Hg] 136 mm[Hg] e CW1 ([facility]ly [facility]) Diastolic blood pressure 82 mm[Hg] 82 mm[Hg] eCW1 ([facility]) Body temperature 97.8 [degF] 97.8 [degF] eCW1 ( [facility]) Respiratory rate 20 /min 20 /min eCW1 ([facility]) Heart rate 83 /min 83 /min eCW1 ([facility]) Body mass index (BMI) [Ratio] 34.65 kg/m2 34.65 kg/m2 eCW1 ([facility]) Body weight 186.4 [lb_av] 186.4 [lb_av] eCW1 ([facility]) Body weight 84.55 kg 84.55 kg eCW1 (Counts include 234 beds at the [facility]) Body height 61.5 [in_i] 61.5 [in_i] eCW1 (Count includes the [facility]) Body weight 200 [lb_av] 200 [lb_av] eCW1 (Count includes the [facility]) Body height 61.5 [in_i] 61.5 [in_i] eCW1 (Count includes the [facility]) Body mass index (BMI) [Ratio] 37.17 kg/m2 37.17 kg/m2 eCW1 ([facility]) Heart rate 88 /min 88 /min eCW1 ([facility]) Respiratory rate 18 /min 18 /min eCW1 ([facility]) Body temperature 99.4 [degF] 99.4 [degF] eCW1 ( [facility]) Systolic blood pressure 123 mm[Hg] 123 mm[Hg] e CW1 ([facility]ly [facility]) Diastolic blood pressure 58 mm[Hg] 58 mm[Hg] eCW1 ([facility]ly [facility]) Systolic blood pressure 130 mm[Hg] 130 mm[Hg] M EDENT ([facility]) Diastolic blood pressure 82 mm[Hg] 82 mm[Hg] [...] Body weight 200 [lb_av] 200 [lb_av] eCW1 (Count includes the [facility]) Body height 61.5 [in_i] 61.5 [in_i] eCW1 (Count includes the [facility]) Body mass index (BMI) [Ratio] 37.17 kg/m2 37.17 kg/m2 eCW1 ([facility]) Heart rate 65 /min 65 /min eCW1 ([facility]) Respiratory rate 18 /min 18 /min eCW1 ([facility]) Body temperature 96.6 [degF] 96.6 [degF] eCW1 ( [facility]) Systolic blood pressure 125 mm[Hg] 125 mm[Hg] e CW1 ([facility]ly [facility]) Diastolic blood pressure 60 mm[Hg] 60 mm[Hg] eCW1 ([facility]ly [facility]) Body temperature 96.9 [degF] 96.9 [degF] eCW1 ( [facility]) Systolic blood pressure 132 mm[Hg] 132 mm[Hg] e CW1 ([facility]ly [facility]) Diastolic blood pressure 61 mm[Hg] 61 mm[Hg] eCW1 ([facility]ly [facility]) Body weight 200 [lb_av] 200 [lb_av] eCW1 (Count includes the [facility]) Body weight kg eCW1 (Counts include 234 beds at the [facility]) Body height 61.5 [in_i] 61.5 [in_i] eCW1 (Count includes the [facility]) Body mass index (BMI) [Ratio] 37.17 kg/m2 37.17 kg/m2 eCW1 ([facility]) Heart rate 64 /min 64 /min eCW1 ([facility]) Respiratory rate 17 /min 17 /min eCW1 ([facility]) Body weight 200 [lb_av] 200 [lb_av] eCW1 (Count includes the [facility]) Body weight kg eCW1 (Counts include 234 beds at the [facility]) Body height 61.5 [in_i] 61.5 [in_i] eCW1 (Count includes the [facility]) Body mass index (BMI) [Ratio] 37.17 kg/m2 37.17 kg/m2 eCW1 ([facility]) Heart rate 80 /min 80 /min eCW1 ([facility]) Respiratory rate 20 /min 20 /min eCW1 ([facility]) Body temperature 98.4 [degF] 98.4 [degF] eCW1 ( [facility]) Systolic blood pressure 148 mm[Hg] 148 mm[Hg] e CW1 ([facility]ly [facility]) Diastolic blood pressure 65 mm[Hg] 65 mm[Hg] eCW1 ([facility]ly [facility]) Body weight 200 [lb_av] 200 [lb_av] eCW1 (Count includes the [facility]) Body weight kg eCW1 (Counts include 234 beds at the [facility]) Body height 61.5 [in_i] 61.5 [in_i] eCW1 (Count includes the [facility]) Body mass index (BMI) [Ratio] 37.17 kg/m2 37.17 kg/m2 eCW1 ([facility]) Heart rate 65 /min 65 /min eCW1 ([facility]) Respiratory rate 18 /min 18 /min eCW1 ([facility]) Body temperature 95.7 [degF] 95.7 [degF] eCW1 ( [facility]) Systolic blood pressure 118 mm[Hg] 118 mm[Hg] e CW1 ([facility]) Diastolic blood pressure 76 mm[Hg] 76 mm[Hg] eCW1 ([facility]ly [facility]) Body weight 200 [lb_av] 200 [lb_av] eCW1 (Count includes the [facility]) Body weight kg eCW1 (Counts include 234 beds at the [facility]) Body height 61.5 [in_i] 61.5 [in_i] eCW1 (Count includes the [facility]) Body mass index (BMI) [Ratio] 37.17 kg/m2 37.17 kg/m2 eCW1 ([facility]) Heart rate 78 /min 78 /min eCW1 ([facility]) Respiratory rate 18 /min 18 /min eCW1 ([facility]) Body temperature 98.5 [degF] 98.5 [degF] eCW1 ( [facility]) Systolic blood pressure 116 mm[Hg] 116 mm[Hg] e CW1 ([facility]ly [facility]) Diastolic blood pressure 54 mm[Hg] 54 mm[Hg] eCW1 ([facility]ly [facility]) Body weight 200 [lb_av] 200 [lb_av] eCW1 (Count includes the [facility]) Body weight kg eCW1 (Counts include 234 beds at the [facility]) Body height 61.5 [in_i] 61.5 [in_i] eCW1 (Count includes the [facility]) Body mass index (BMI) [Ratio] 37.17 kg/m2 37.17 kg/m2 eCW1 ([facility]) Heart rate 85 /min 85 /min eCW1 ([facility]) Respiratory rate 18 /min 18 /min eCW1 ([facility]) Body temperature 98.4 [degF] 98.4 [degF] eCW1 ( [facility]) Systolic blood pressure 160 mm[Hg] 160 mm[Hg] e CW1 ([facility]ly [facility]) Diastolic blood pressure 71 mm[Hg] 71 mm[Hg] eCW1 ([facility]ly [facility]) Body weight 200 [lb_av] 200 [lb_av] eCW1 (Count includes the [facility]) Body height 61.5 [in_i] 61.5 [in_i] eCW1 (Count includes the [facility]) Body mass index (BMI) [Ratio] 37.17 kg/m2 37.17 kg/m2 eCW1 ([facility]) Heart rate 82 /min 82 /min eCW1 ([facility]) Respiratory rate 16 /min 16 /min eCW1 ([facility]) Body temperature 97.1 [degF] 97.1 [degF] eCW1 ( [facility]) Systolic blood pressure 176 mm[Hg] 176 mm[Hg] e CW1 ([facility]ly [facility]) Diastolic blood pressure 81 mm[Hg] 81 mm[Hg] eCW1 ([facility]ly [facility]) Body mass index (BMI) [Ratio] 36.43 kg/m2 36.43 kg/m2 eCW1 ([facility]ly [facility]) Body weight 196 [lb_av] 196 [lb_av] eCW1 (Count includes the [facility]) Diastolic blood pressure 52 mm[Hg] 52 mm[Hg] eCW1 ([facility]ly [facility]) Body height 61.5 [in_i] 61.5 [in_i] eCW1 (Count includes the [facility]) Heart rate 75 /min 75 /min eCW1 ([facility]) Respiratory rate 18 /min 18 /min eCW1 ([facility]) Body temperature 97.9 [degF] 97.9 [degF] eCW1 ( [facility]) Systolic blood pressure 94 mm[Hg] 94 mm[Hg] e CW1 ([facility]ly [facility]) Body weight 196 [lb_av] 196 [lb_av] eCW1 (Count includes the [facility]) Body height 61.5 [in_i] 61.5 [in_i] eCW1 (Count includes the [facility]) Body mass index (BMI) [Ratio] 36.43 kg/m2 36.43 kg/m2 eCW1 ([facility]) Heart rate 70 /min 70 /min eCW1 ([facility]) Respiratory rate 18 /min 18 /min eCW1 ([facility]) Body temperature 98.6 [degF] 98.6 [degF] eCW1 ( [facility]) Systolic blood pressure 110 mm[Hg] 110 mm[Hg] e CW1 ([facility]ly [facility]) Diastolic blood pressure 70 mm[Hg] 70 mm[Hg] eCW1 ([facility]ly [facility]) Body weight 196 [lb_av] 196 [lb_av] eCW1 (Count includes the [facility]) Body height 61.5 [in_i] 61.5 [in_i] eCW1 (Count includes the [facility]) Body mass index (BMI) [Ratio] 36.43 kg/m2 36.43 kg/m2 eCW1 ([facility]) Heart rate 74 /min 74 /min eCW1 ([facility]) Respiratory rate 18 /min 18 /min eCW1 ([facility]) Body temperature 98.4 [degF] 98.4 [degF] eCW1 ( [facility]) Systolic blood pressure 108 mm[Hg] 108 mm[Hg] e CW1 ([facility]ly [facility]) Diastolic blood pressure 69 mm[Hg] 69 mm[Hg] eCW1 ([facility]ly [facility]) Body height 61.5 [in_i] 61.5 [in_i] eCW1 (Count includes the [facility]) Body weight 198 [lb_av] 198 [lb_av] eCW1 (Count includes the [facility]) Body mass index (BMI) [Ratio] 36.80 kg/m2 36.80 kg/m2 eCW1 ([facility]) Respiratory rate 20 /min 20 /min eCW1 ([facility]) Body temperature 97.4 [degF] 97.4 [degF] eCW1 ( [facility]) Heart rate 82 /min 82 /min eCW1 ([facility]) Systolic blood pressure 132 mm[Hg] 132 mm[Hg] e CW1 ([facility]) Diastolic blood pressure 62 mm[Hg] 62 mm[Hg] eCW1 ([facility]ly [facility]) Body weight 198 [lb_av] 198 [lb_av] eCW1 (Count includes the [facility]) Body height 61.5 [in_i] 61.5 [in_i] eCW1 (Count includes the [facility]) Body mass index (BMI) [Ratio] 36.80 kg/m2 36.80 kg/m2 eCW1 ([facility]) Heart rate 78 /min 78 /min eCW1 ([facility]) Respiratory rate 18 /min 18 /min eCW1 ([facility]) Body temperature 98.0 [degF] 98.0 [degF] eCW1 ( [facility]) Systolic blood pressure 139 mm[Hg] 139 mm[Hg] e CW1 ([facility]ly [facility]) Diastolic blood pressure 79 mm[Hg] 79 mm[Hg] eCW1 ([facility]ly [facility]) Body height 62 [in_i] 62 [in_i] [facility] ([facility]) 5'2" Systolic blood pressure 152 mm[Hg] 152 mm[Hg] M EDENT ([facility]) Diastolic blood pressure 60 mm[Hg] 60 mm[Hg] [facility] ([facility]) Body weight 199.00 [lb_av] 199.00 [lb_av] MEDEN T ([facility]) Body mass index (BMI) [Ratio] 36.4 kg/m2 36.4 k g/m2 [facility] ([facility]) Avinger body weight 110 [lb_av] 110 [lb_av] MEDEN T ([facility]) Body weight 90.266 kg 90.266 kg [facility] ([facility]) Body surface area Derived from formula 1.91 m2 1.91 m2 [facility] ([facility]) Body weight 198 [lb_av] 198 [lb_av] eCW1 (Count includes the [facility]) Body height 61.5 [in_i] 61.5 [in_i] eCW1 (Count includes the [facility]) Body mass index (BMI) [Ratio] 36.80 kg/m2 36.80 kg/m2 W1 ([facility]) Heart rate 82 /min 82 /min eCW1 ([facility]) Respiratory rate 18 /min 18 /min eCW1 ([facility]) Body temperature 98.0 [degF] 98.0 [degF] eCW1 ( [facility]) Systolic blood pressure 132 mm[Hg] 132 mm[Hg] e CW1 ([facility]ly [facility]) Diastolic blood pressure 76 mm[Hg] 76 mm[Hg] eCW1 ([facility]ly [facility]) Body weight [lb_av] eCW1 (Counts include 234 beds at the [facility]) Body height 61.5 [in_i] 61.5 [in_i] eCW1 (Count includes the [facility]) Body mass index (BMI) [Ratio] 39.22 kg/m2 39.22 kg/m2 eCW1 ([facility]) Heart rate 63 /min 63 /min eCW1 ([facility]) Respiratory rate 18 /min 18 /min eCW1 ([facility]) Body temperature 98.0 [degF] 98.0 [degF] eCW1 ( [facility]) Systolic blood pressure 145 mm[Hg] 145 mm[Hg] e CW1 ([facility]ly [facility]) Diastolic blood pressure 67 mm[Hg] 67 mm[Hg] eCW1 ([facility]ly [facility]) Body mass index (BMI) [Ratio] 38.66 kg/m2 38.66 kg/m2 eCW1 ([facility]) Body weight 208 [lb_av] 208 [lb_av] eCW1 (Count includes the [facility]) Body height 61.5 [in_i] 61.5 [in_i] eCW1 (Count includes the [facility]) Heart rate 70 /min 70 /min eCW1 ([facility]) Respiratory rate 20 /min 20 /min eCW1 ([facility]) Body temperature 96.6 [degF] 96.6 [degF] eCW1 ( [facility]) Systolic blood pressure 144 mm[Hg] 144 mm[Hg] e CW1 ([facility]ly [facility]) Diastolic blood pressure 72 mm[Hg] 72 mm[Hg] eCW1 ([facility]ly [facility]) Body weight 208 [lb_av] 208 [lb_av] eCW1 (Count includes the [facility]) Diastolic blood pressure 72 mm[Hg] 72 mm[Hg] eCW1 ([facility]ly [facility]) Body height 61.5 [in_i] 61.5 [in_i] eCW1 (Count includes the [facility]) Body mass index (BMI) [Ratio] 38.66 kg/m2 38.66 kg/m2 eCW1 ([facility]ly [facility]) Heart rate 71 /min 71 /min eCW1 ([facility]) Respiratory rate 20 /min 20 /min eCW1 ([facility]) Body temperature 96.5 [degF] 96.5 [degF] eCW1 ( [facility]) Systolic blood pressure 138 mm[Hg] 138 mm[Hg] e CW1 ([facility]ly [facility]) Body weight 206 [lb_av] 206 [lb_av] eCW1 (Count includes the [facility]) Body height 61.5 [in_i] 61.5 [in_i] eCW1 (Count includes the [facility]) Body mass index (BMI) [Ratio] 38.29 kg/m2 38.29 kg/m2 eCW1 ([facility]) Heart rate 67 /min 67 /min eCW1 ([facility]) Respiratory rate 18 /min 18 /min eCW1 ([facility]) Body temperature 97.8 [degF] 97.8 [degF] eCW1 ( [facility]) Systolic blood pressure 122 mm[Hg] 122 mm[Hg] e CW1 ([facility]ly [facility]) Diastolic blood pressure 69 mm[Hg] 69 mm[Hg] eCW1 (Formerly [facility]) Patient Treatment Plan of Care Planned Activity Planned Date Details Description Data Source (s) methenamine hippurate 1000 MG Oral Tablet 07/24/2021 12:00:00 AM ED T eCW1 (Formerly [facility]) methenamine hippurate 1000 MG Oral Tablet 07/24/2021 12:00:00 AM ED T eCW1 (Formerly [facility]) Sulfamethoxazole 800 MG / Trimethoprim 160 MG Oral Tab let [Bactrim] 05/22/2021 12:00:00 AM EDT eCW1 ([facility]) NITROFURANTOIN, MACROCRYSTALS 25 MG / Ni trofurantoin, Monohydrate 75 MG Oral Capsule [Macrobid] 05/19/2021 12:00:00 AM EDT eC W1 (Formerly [facility]) NITROFURANTOIN, MACROCRYSTALS 25 MG / Ni trofurantoin, Monohydrate 75 MG Oral Capsule [Macrobid] 05/19/2021 12:00:00 AM EDT eC W1 (Formerly [facility]) 24 HR tolterodine tartrate 4 MG Extended Release Oral Capsule 04/27/2021 12:00:00 AM EDT eCW1 ([facility]) 24 HR tolterodine tartrate 4 MG Extended Release Oral Capsule 04/27/2021 12:00:00 AM EDT eCW1 ([facility]) 24 HR tolterodine tartrate 4 MG Extended Release Oral Capsule 04/27/2021 12:00:00 AM EDT eCW1 ([facility]) Amoxicillin 875 MG / Clavulanate 125 MG Oral Tablet 03/21/20 21 12:00:00 AM EDT eCW1 ([facility]) Amoxicillin 875 MG / Clavulanate 125 MG Oral Tablet 03/21/20 21 12:00:00 AM EDT eCW1 ([facility]) Prednisone 50 MG Oral Tablet 02/15/2021 12:00:00 AM EDT eCW1 ([facility]) Diphenhydramine Hydrochloride 50 MG Oral Capsule 02/15/2021 12:00:0 0 AM EDT eCW1 ([facility]) Myrbetriq 50 MG 02/06/2021 12:00:00 AM EDT eCW1 ([facility]) Myrbetriq 50 MG 02/06/2021 12:00:00 AM EDT eCW1 ([facility]) Myrbetriq 50 MG 02/06/2021 12:00:00 AM EDT eCW1 ([facility]) Myrbetriq 50 MG 02/06/2021 12:00:00 AM EDT eCW1 (Formerly [facility]) 24 HR Oxybutynin chloride 15 MG Extended Release Oral Tablet 12/22/2020 12:00:00 AM EST eCW1 ([facility]) 24 HR Oxybutynin chloride 15 MG Extended Release Oral Tablet 12/22/2020 12:00:00 AM EST eCW1 ([facility]) 24 HR Oxybutynin chloride 15 MG Extended Release Oral Tablet 12/22/2020 12:00:00 AM EST eCW1 ([facility]) 3 ML Insulin Lispro 100 UNT/ML Pen Injector [Humalog] 11/22/2020 12:00:00 AM EST eCW1 ([facility]) Simplicity Adult Brief 32"-44" - 10/18/2020 12:00:00 AM EST eCW1 ([facility]) Simplicity Adult Brief 32"-44" - 10/18/2020 12:00:00 AM EST eCW1 ([facility]) Simplicity Adult Brief 32"-44" - 10/18/2020 12:00:00 AM EST eCW1 ([facility]) Simplicity Adult Brief 32"-44" - 10/18/2020 12:00:00 AM EST eCW1 ([facility]) NITROFURANTOIN, MACROCRYSTALS 25 MG / Ni trofurantoin, Monohydrate 75 MG Oral Capsule [Macrobid] 09/23/2020 12:00:00 AM EST eC W1 ([facility]) NITROFURANTOIN, MACROCRYSTALS 25 MG / Ni trofurantoin, Monohydrate 75 MG Oral Capsule [Macrobid] 09/23/2020 12:00:00 AM EST eC W1 ([facility]) NITROFURANTOIN, MACROCRYSTALS 25 MG / Ni trofurantoin, Monohydrate 75 MG Oral Capsule [Macrobid] 09/23/2020 12:00:00 AM EST eC W1 ([facility]) NITROFURANTOIN, MACROCRYSTALS 25 MG / Ni trofurantoin, Monohydrate 75 MG Oral Capsule [Macrobid] 09/23/2020 12:00:00 AM EST eC W1 ([facility]) NITROFURANTOIN, MACROCRYSTALS 25 MG / Ni trofurantoin, Monohydrate 75 MG Oral Capsule [Macrobid] 09/23/2020 12:00:00 AM EST eC W1 ([facility]) NITROFURANTOIN, MACROCRYSTALS 25 MG / Ni trofurantoin, Monohydrate 75 MG Oral Capsule [Macrobid] 09/23/2020 12:00:00 AM EST eC W1 ([facility]) Sulfamethoxazole 800 MG / Trimethoprim 160 MG Oral Tab let [Bactrim] 08/24/2020 12:00:00 AM EST eCW1 ([facility]) Oxybutynin chloride 5 MG Oral Tablet 08/24/2020 12:00:00 AM EST eCW1 ([facility]) Sulfamethoxazole 800 MG / Trimethoprim 160 MG Oral Tab let [Bactrim] 08/24/2020 12:00:00 AM EST eCW1 ([facility]) Oxybutynin chloride 5 MG Oral Tablet 08/24/2020 12:00:00 AM EST eCW1 ([facility]) Sulfamethoxazole 800 MG / Trimethoprim 160 MG Oral Tab let [Bactrim] 08/24/2020 12:00:00 AM EST eCW1 ([facility]) Oxybutynin chloride 5 MG Oral Tablet 08/24/2020 12:00:00 AM EST eCW1 ([facility]) Levofloxacin 250 MG Oral Tablet 08/01/2020 12:00:00 AM EDT eCW1 ([facility]) Sulfamethoxazole 800 MG / Trimethoprim 160 MG Oral Tab let [Bactrim] 07/28/2020 12:00:00 AM EDT eCW1 ([facility]) cefdinir 300 MG Oral Capsule 07/13/2020 12:00:00 AM EDT eCW1 ([facility]) cefdinir 300 MG Oral Capsule 07/13/2020 12:00:00 AM EDT eCW1 ([facility]) cefdinir 300 MG Oral Capsule 07/13/2020 12:00:00 AM EDT eCW1 ([facility]) cefdinir 300 MG Oral Capsule 07/13/2020 12:00:00 AM EDT eCW1 ([facility]) cefdinir 300 MG Oral Capsule 07/13/2020 12:00:00 AM EDT eCW1 ([facility])
[2021-07-28 04:42] LABS: RSV AMPLIFICATION NEGATIVE (NEGATIVE)
[2021-07-28 04:46] LABS: MEAN CORPUSCULAR HEMOGLOBIN 29.8 pg (27.0-33.0); MEAN CORPUSCULAR HGB CONC 27.3 g/dl (32.0-36.5); MEAN CORPUSCULAR VOLUME 109.3 fl (80.0-96.0); PLATELET COUNT, AUTOMATED 130 10^3/uL (150-450); RED BLOOD COUNT 1.51 10^6/uL (4.00-5.40); WHITE BLOOD COUNT 14.3 10^3/uL (4.0-10.0)
[2021-07-28 04:49] LABS: HEMATOCRIT 16.5 % (36.0-47.0); HEMOGLOBIN 4.5 g/dl (12.0-15.5)
[2021-07-28 05:09] LABS: EOSINOPHILS 1 % (0-3); LYMPHOCYTES 40 % (16-44); METAMYELOCYTES 1 % (0-0); MYELOCYTES 5 % (0-0); NEUTROPHILS 43 % (28-66); PLATELET ESTIMATE DECREASED (NORMAL)
[2021-07-28 05:34] LABS: BILIRUBIN,TOTAL 0.2 MG/DL (0.2-1.0); CK-MB VALUE MASS 4.6 NG/ML (<3.6); CREATININE FOR GFR 1.51 MG/DL (0.55-1.30); GLOMERULAR FILTRATION RATE 36.2 (>39); MAGNESIUM LEVEL 2.2 MG/DL (1.8-2.4); MB/CK RELATIVE INDEX 1.62 (< OR =4); POTASSIUM SERUM 5.3 MEQ/L (3.5-5.1); TOTAL PROTEIN 3.6 GM/DL (6.4-8.2); TROPONIN I 0.09 NG/ML (< 0.10)
--- NOTE | 2021-07-28 08:35 | ECGEPIP ---
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
== END 2021-07-28 10:06 | disposition home or self-care (01) ==
LOC: M ED 03:36
DX: I46.9 Cardiac arrest, cause unspecified (principal); R57.8 Other shock; K21.9 Gastro-esophageal reflux disease without esophagitis; C18.9 Malignant neoplasm of colon, unspecified; K92.2 Gastrointestinal hemorrhage, unspecified; Z79.4 Long term (current) use of insulin; Z79.899 Other long term (current) drug therapy; Z91.041 Radiographic dye allergy status; Z88.8 Allergy status to other drugs, medicaments and biological substances